=== PATIENT | female | born 1995 | race Caucasian/White ===

== ENCOUNTER → 2020-09-04 09:10 | Outpatient (BNVA) | payer BC, SELFPAY | PROVIDERS: Family Provider General Practice; PCP Internal Medicine; Visit Provider Obstetrics & Gynecology | DX: Z01.419 Encounter for gynecological examination (general) (routine) without abnormal findings (principal) | CPT/HCPCS: 88175 ==

== ENCOUNTER → 2020-11-13 08:59 | Outpatient (BNVA) | payer BC, SELFPAY | PROVIDERS: Family Provider General Practice; PCP Internal Medicine; Visit Provider Internal Medicine Rheumatology | DX: M17.12 Unilateral primary osteoarthritis, left knee (principal); M25.462 Effusion, left knee; Z79.899 Other long term (current) drug therapy; Z11.1 Encounter for screening for respiratory tuberculosis; Z11.59 Encounter for screening for other viral diseases; Z97.5 Presence of (intrauterine) contraceptive device; Z87.891 Personal history of nicotine dependence; R30.9 Painful micturition, unspecified | CPT/HCPCS: 81000; 87086; 99204 ==

== ENCOUNTER 2020-11-24 08:02 | Outpatient (CLI) | payer BC, SELFPAY ==
--- NOTE | 2020-11-24 08:07 | US_ITS ---
WS: [id number] ULTRASOUND SOFT TISSUES LEFT knee HISTORY: LEFT KNEE PAIN, SWELLING COMPARISON: 10/01/2013 MRI TECHNIQUE: 2-D and color Doppler imaging is submitted. There is an elongated complex fluid collection along the lateral knee at the joint line extending ove r length of 8 cm. The depth of this collection is 1.3 cm. This is not a simple collection. No suprapa tellar effusion identified. No increased vascularity. US/US soft tissue/extremity [id number] IMPRESSION: Complex elongated fluid collection centered at the lateral joint line measures 8 cm in length by 1.3 cm in depth. Complex material therefore this may not aspi rate very well. Differential includes meniscal cyst and joint effusion.
== END 2020-11-24 08:03 | disposition home or self-care (01) ==
LOC: US 08:05
PROVIDERS: PCP Internal Medicine; Visit Provider Internal Medicine Rheumatology
DX: M25.562 Pain in left knee (principal); M25.462 Effusion, left knee
CPT/HCPCS: 76882

== ENCOUNTER → 2020-12-29 14:11 | Outpatient (BNVA) | payer BC, SELFPAY | PROVIDERS: PCP Internal Medicine; Visit Provider Internal Medicine Rheumatology | DX: M25.462 Effusion, left knee (principal); Z79.899 Other long term (current) drug therapy; M24.522 Contracture, left elbow; Z97.5 Presence of (intrauterine) contraceptive device; Z87.891 Personal history of nicotine dependence | CPT/HCPCS: 99204; 99214 ==

== ENCOUNTER 2021-03-02 18:26 | Emergency (ER) | payer BC, SELFPAY ==
[2021-03-02 19:48] VITALS: BP 128/87; PULSE 83; RESP 15; TEMP 37.1; O2SAT 98; BMI 35.7
[2021-03-02 22:33] VITALS: BP 148/90; PULSE 17; RESP 72; O2SAT 100
[2021-03-02 23:01] LABS: Basophils % 0.4 %; Eosinophils # 0.1 10^3/uL (0.0-0.8); Eosinophils % 1.1 %; Hematocrit 45.7 % (37.0-47.0); Hemoglobin 14.4 g/dL (11.5-15.3); Lymphocytes # 2.3 10^3/uL (0.8-4.8); Lymphocytes % 24.6 %; Mean Corpuscular HGB Conc 31.5 g/dL (30.0-36.0); Mean Corpuscular Hemoglobin 29.4 pg (28.0-34.0); Mean Corpuscular Volume 93.5 fL (81-99); Monocytes # 0.7 10^3/uL (0.2-0.9); Monocytes % 7.5 %; Neutrophils % 66.1 %; Nucleated Red Blood Cells % 0 %; Platelet Count 324 10^3/cmm (130-400); Red Blood Count 4.89 10^6/uL (4.1-5.3); Red Cell Distribution Width 12.1 % (12.1-15.1); White Blood Count 9.2 10^3/uL (4.0-10.0)
--- NOTE | 2021-03-02 23:02 | CTR_ITS ---
PROCEDURE INFORMATION: Exam: CT Abdomen And Pelvis With Contrast Exam date and time: 03/02/2021 12:24 AM Age: 25 years old Clinical indication: Abdominal pain; Localized; Right lower quadrant (rlq); Prior surgery; Surgery type: Gb TECHNIQUE: Imaging protocol: Computed tomography of the abdomen and pelvis with contrast. Radiation optimization: All CT scans at this facility use at least one of these dose optimization techniques: automated exposure control; mA and/or kV adjustment per patient size (includes targeted exams where dose is matched to clinical indication); or iterative reconstruction. Contrast material: OMNI 300; Contrast volume: 95 ml; Contrast route: INTRAVENOUS (IV); COMPARISON: No relevant prior studies available. RADIATION DOSE METRICS: Total DLP (mGy-cm): 1809.2 FINDINGS: Liver: There is no focal abnormality within the liver. Gallbladder and bile ducts: There has been a cholecystectomy. Pancreas: The pancreas is normal. Spleen: The spleen is normal. Adrenal glands: The adrenal glands are normal. Kidneys and ureters: The kidneys are normal. There is no evidence of hydronephrosis. There is no evidence of renal or ureteral calcifications. Stomach and bowel: There is no evidence of colitis/diverticulitis. Appendix: A normal appendix is identified. Intraperitoneal space: There is no evidence of free intraperitoneal fluid. Vasculature: Unremarkable. No abdominal aortic aneurysm. Lymph nodes: There are mildly prominent inguinal lymph nodes on both sides. There is mild external iliac adenopathy with nodes measuring up to 10 x 20 mm on the right and 10 x 14 mm on the left. There also few mildly prominent mesenteric lymph nodes in the right lower quadrant. Urinary bladder: Unremarkable as visualized. Reproductive: There is an IUD within the uterus Bones/joints: Unremarkable. No acute fracture. Soft tissues: Unremarkable. CT/CT abdomen pelvis w con* [id number] IMPRESSION: 1. Borderline inguinal and external iliac adenopathy. 2. No acute findings. Radiation Dose CTDIVOL = (mGy): DLP = 1809.2 (mGy-cm)
[2021-03-02 23:16] LABS: Alanine Aminotransferase 6 U/L (0-33); Albumin Level 4.3 g/dL (3.5-5.2); Alkaline Phosphatase 86 IU/L (35-105); Anion Gap 14.7 (5-19); Aspartate Amino Transferase 11 U/L (0-32); Blood Urea Nitrogen 5 mg/dL (6-20); Carbon Dioxide 25 mmol/L (22-29); Chloride 101 mmol/L (98-107); Globulin 3.8 g/dL (1.3-4.6); Glomerular Filtration Rate 121.8 mL/min (90-130); Glucose 86 mg/dL (65-115); Lipase 22 U/L (13-60); Osmolality Calculated 281 mOsm/kg (285-295); Potassium 3.7 mmol/L (3.5-5.1); Sodium 137 mmol/L (136-145); Total Bilirubin 0.4 mg/dL (0.15-1.2); Total Protein 8.1 g/dL (6.6-8.7)
[2021-03-02 23:51] LABS: HCG Qualitative Urine. Negative (Negative)
[2021-03-03] MEDS: iohexol 300 mg/mL 100 mL Btl IV (00:53)
[2021-03-03 00:54] LABS: Add Urine Microscopic? YES; Bacteria Urine 1+ /hpf; Bilirubin Urine 1+ (Negative); Blood Urine 2+ (Negative); Glucose Urine UA Norm (Normal); Ketones Urine 1+ (Negative); Leukocyte Esterase Urine 1+ (Negative); Nitrate Urine Negative (Negative); Protein Urine Neg (Negative); Specific Gravity, Urine 1.015 (1.005-1.030); Squamous Epithelial Cell Urine 0-4 /hpf (0-5); Urine Appearance Clear (CLEAR); Urine Color Yellow (Yellow); Urobilinogen Urine 4 mg/dL (Negative); pH Urine 5 (5-7)
[2021-03-03 01:38] VITALS: BP 114/61; PULSE 72; RESP 17; O2SAT 98
--- NOTE | 2021-03-03 02:01 | W.ED.ABDPA2 ---
HPI - Abdominal Pain General: Chief Complaint: Abdominal Pain Stated Complaint: RLQ ABD PAIN Time Seen by Provider: 03/02/21 22:31 Source: patient Mode of arrival: ambulatory Limitations: no limitations History of Present Illness: MD elicited complaint: abdominal pain Onset (ago): day(s) (2) Pain Consistency: intermittent Location: RLQ Severity: mild Quality: cramping Radiation: none Migration to: no migration Exacerbating factors: nothing Relieving factors: nothing Associated Symptoms: Denies change in bowel habits, chills, constipation, GI cramping, diarrhea, dysuria, fever(s), hematuria, hematemesis, nausea, syncope and vomiting Review of Systems Const: Denies: fever(s), chills, body aches, change in appetite, change in weight, fatigue, malaise or diaphoresis Eyes: Denies: change in vision, blurry vision, blind spots, photophobia, eye discomfort, eye discharge, eye redness, floaters or seeing flashes ENMT: Denies: throat pain, uvular edema, enlarged tonsils, odynophagia, hoarseness, mouth pain, swelling of lips/tongue, oral sores, bleeding gums, dental pain, dry mouth, ear or mastoid pain, ear discharge, change in hearing, tinnitus, disequilibrium, nasal discharge, nasal congestion, post nasal drip or sinus pain Card: Denies: chest pain, palpitations, irregular heart rhythm, edema, swelling of feet/ankles, lightheadedness, syncope, pre-syncope, dyspnea on exertion, orthopnea, leg pain with exertion or acrocyanosis Resp: Denies: dyspnea, productive cough, non-productive cough, wheezing, stridor, pain on inspiration, change in phlegm color, hemoptysis or chest congestion GI: Reports: abdominal pain; Denies: nausea, vomiting, hematemesis, dysphagia, diarrhea, constipation, GI cramping, change in bowel habits or rectal pain : Denies: flank pain, difficulty voiding, dysuria, urinary frequency, urinary urgency, urinary hesitancy or hematuria Musc: Denies: neck pain, back pain, extremity pain, extremity swelling, joint pain, joint swelling, joint redness, joint warmth or deformity Skin/Breast: Denies: rash, pruritus, erythema, sores, new lesions, changes in skin color or dry skin Neuro: Denies: headache(s), numbness in extremities, weakness in extremities, sensory changes, lack of coordination, difficulty walking, frequent falls, dizziness, vertigo, confusion, behavioral changes, Slurred speech present, difficulty communicating thoughts or seizure-like activity Psych: Denies: anxiety, depression, suicidal ideation or homicidal ideation Endo: Denies: polyuria, polydipsia, tired all the time, cold intolerance, excessive sweating, flushing, hot flashes or heat intolerance Sajan/Lymph: Denies: easy bruising, easy bleeding, petechiae, purpura, enlarged lymph nodes or tender lymph nodes All/Imm: Denies: urticaria, throat swelling, tongue swelling, facial swelling, acute wheezing or itchy eyes PFSH ED PFSH: Medical History High risk medication use Immunization counseling Inflammatory arthritis Has been evaluated and treated by rheumatology in 2017 Inflammatory arthritis IUD (intrauterine device) in place Swelling of left knee joint Surgical History S/P laparoscopic cholecystectomy (~2014) Performed at [facility] in [place], [place] S/P left knee arthroscopy (~10/2013) Performed at [facility] in [place], [place] Family History Father Diabetes Grandmother Ovarian cancer paternal Other Cancer Lupus Denies family history of Rheumatoid arthritis CAD (coronary artery disease) Hyperlipidemia Chronic kidney disease (CKD) Hypertension Stroke Social History Smoking and tobacco status: former smoker Quit status (tobacco): has quit using tobacco Former quit date comment: Most smoked 1/2 ppd. Started age 17 Alcohol intake: current Alcohol intake frequency: few times a week Physical Exam Const: COMMON NORMALS: no acute distress, patient oriented x3, healthy appearing, alert and well nourished GENERAL APPEARANCE: cooperative, comfortable, well kempt and well developed; not ill appearing ORIENTATION/CONSCIOUSNESS: Yes awake, Yes oriented to person, Yes oriented to place and Yes oriented to time HENMT: COMMON NORMALS: normocephalic, atraumatic, hearing grossly normal bilaterally, external ears normal, EAC's normal, TM's normal bilaterally, Normal external nose present, Normal nasal mucous membranes and turbinates present and moist oral mucous membranes HEAD & SCALP: normal to inspection, normocephalic and atraumatic FACE & SINUS: normal facial exam, sinuses nontender and face symmetric NOSE: Normal external nose present, Normal nares present, Normal nasal mucous membranes and turbinates present, No nasal discharge present and Abnormal external nose present EXTERNAL EAR: Yes external ears normal and Yes mastoids normal EXTERNAL AUDITORY CANAL: EAC's normal TYMPANIC MEMBRANE: TM's normal bilaterally MOUTH: Normal oral and palatal mucosa present, lip normal, tongue normal and Normal salivary glands and ducts present THROAT: no uvular edema Eye: COMMON NORMALS: Equal, round and reactive pupils present, EOMs intact bilaterally, conjunctivae normal, no scleral icterus and no papilledema GENERAL EYE: appearance normal, both eyes and all related structures EYELID: eyelids normal CONJUNCTIVA: Yes conjunctivae normal SCLERA: sclerae normal CORNEA: Yes corneas normal PUPIL: Yes Equal, round and reactive pupils present DIRECT OPHTHALMOSCOPY: Yes no papilledema Neck/C-Spine: COMMON NORMALS: full ROM, no lymphadenopathy, supple, no meningeal signs, no JVD and Thyroid normal GENERAL: Yes normal visual inspection and Yes trachea midline THYROID: Thyroid normal CERVICAL SPINE: Yes cervical ROM normal Lymph: LYMPHATIC: no lymphadenopathy noted and no lymphedema noted Chest: COMMONS NORMALS: normal inspection of the chest and normal palpation of entire chest wall Resp: COMMON NORMALS: normal respiratory effort, No retractions, No use of accessory muscles and clear to auscultation bilaterally EFFORT & INSPECTION: Yes able to speak in complete sentences and Yes symmetric chest movement AUSCULTATION: clear to auscultation bilaterally Cardio: COMMON NORMALS: no JVD, regular rate and regular rhythm RATE: regular rate RHYTHM: regular rhythm GI: COMMON NORMALS: Normal to inspection, nondistended, normoactive bowel sounds present, Soft to palpation, non-tender, No hepatosplenomegaly present, no masses and no bruits INSPECTION: Yes normal to inspection AUSCULTATION: Yes normoactive bowel sounds PALPATION: Yes Soft to palpation and Yes No hepatosplenomegaly present PERCUSSION: normal to percussion RECTAL EXAM: deferred : COMMON NORMALS: Yes no CVA tenderness BLADDER/KIDNEY EXAM: Yes no CVA tenderness Back/Pelvis: COMMON NORMALS: no CVA tenderness, thoracic and lumbar spine normal to inspection, no thoracic nor lumbar tenderness, thoraco-lumbar ROM normal and straight leg raise negative bilaterally THORACIC SPINE/UPPER BACK: Yes normal to inspection LUMBAR SPINE/LOWER BACK: Yes normal to inspection Extremity: COMMON NORMALS: normal to inspection, full ROM and capillary refill normal GENERAL: Yes normal exam except as noted Neuro: COMMON NORMALS: patient oriented x3, CN's II-XII intact bilaterally, moves all extremities, no focal motor deficits, no sensory deficits noted, deep tendon reflexes 2+ bilaterally and gait normal SENSORIUM/ORIENTATION: Yes alert, Yes oriented to person, Yes oriented to place and Yes oriented to time MENINGEAL SIGNS: Yes no meningeal signs CRANIAL NERVES: Yes CN normal except as noted SPEECH: speech normal GAIT: Yes Normal gait present SENSORY EXAM: Yes extremities Psych: COMMON NORMALS: mental status grossly normal, Normal thought process present, cooperative, normal affect, speech normal, activity/motor behavior normal, denies hallucinations, denies homicidal ideation and denies suicidal ideation APPEARANCE: Yes grossly normal and Yes well kempt ATTITUDE: Yes calm ACTIVITY/MOTOR BEHAVIOR: Yes appropriate eye contact SPEECH: Yes normal speech THOUGHT PROCESS: Normal thought process present THOUGHT CONTENT: Yes Normal thought content present ATTENTION/CONCENTRATION: Yes attention grossly intact MEMORY/COGNITION: Yes memory grossly intact INSIGHT: Good insight present (Psych) JUDGEMENT: Good judgement present (Psych) Skin: COMMON NORMALS: no rashes or lesions noted, no wounds, turgor normal, no jaundice, no petechiae and no mottling GENERAL SKIN EXAM: no rashes or lesions noted and turgor normal Course Vital Signs: Vital signs: Vital Signs Temperature 98.7 F 03/02/21 19:48 Pulse Rate 72 03/03/21 01:38 Respiratory Rate 17 03/03/21 01:38 Blood Pressure 114/61 03/03/21 01:38 Pulse Oximetry 98 03/03/21 01:38 MDM - Abdominal Pain MDM Narrative: Medical decision making narrative: Pt is well appearing non toxic and in no acute distress. Pt has no tenderness to abd upon palpation and states its mild pain to RLQ. pt deneis any n/v/d or fever. i discussed ct findings with patient and advised her to follow up for recheck of lymphys to ensure they normalize. Pt states there is no concerns for STDs. pt denies any pelvic pain or tenderness pt denies any back pain. I disucssed with patient her urine results and will strt her on macrobid at this time. I advised patient of close return precautions and follow up. Differential Diagnosis: Differential diagnosis abdominal pain: Likely abdominal pain, acute appendicitis, calculus of kidney, constipation, diverticulitis, endometriosis, gastroenteritis, pancreatitis and small bowel obstruction Medical Records: Attestation: I reviewed the patient's medical records. Lab Data: Attestation: I reviewed the patient's lab results. Labs: Lab Results 03/02/21 03/02/21 03/02/21 Range/Units 22:54 22:54 23:45 WBC 9.2 (4.0-10.0) 10^3/ uL RBC 4.89 (4.1-5.3) 10^6/u L Hgb 14.4 (11.5-15.3) g/dL Hct 45.7 (37.0-47.0) % MCV 93.5 (81-99) fL MCH 29.4 (28.0-34.0) pg MCHC 31.5 (30.0-36.0) g/dL RDW 12.1 (12.1-15.1) % Plt Count 324 (130-400) 10^3/c mm MPV 11.0 H (7.4-10.4) fL Neut % (Auto) 66.1 % Lymph % (Auto) 24.6 % [place] % (Auto) 7.5 % Eos % (Auto) 1.1 % Baso % (Auto) 0.4 % Neut # (Auto) 6.10 (1.8-7.7) 10^3/u L Lymph # (Auto) 2.3 (0.8-4.8) 10^3/u L [place] # (Auto) 0.7 (0.2-0.9) 10^3/u L Eos # (Auto) 0.1 (0.0-0.8) 10^3/u L Baso # (Auto) 0.0 (0.0-0.1) 10^3/u L Nucleated RBC % (a uto) 0 % Nucleated RBCs # 0.0 /100WBC Sodium 137 (136-145) mmol/L Potassium 3.7 (3.5-5.1) mmol/L Chloride 101 (98-107) mmol/L Carbon Dioxide 25 (22-29) mmol/L Anion Gap 14.7 (5-19) BUN 5 L (6-20) mg/dL Creatinine 0.6 (0.5-0.9) mg/dL GFR Calculation 121.8 (90-130) mL/min Glucose 86 (65-115) mg/dL Calculated Osmolal ity 281 L (285-295) mOsm/k g Calcium 9.0 (8.5-10.5) mg/dL Total Bilirubin 0.4 (0.15-1.2) mg/dL AST 11 (0-32) U/L ALT 6 (0-33) U/L Alkaline Phosphata se 86 (35-105) IU/L Total Protein 8.1 (6.6-8.7) g/dL Albumin 4.3 (3.5-5.2) g/dL Globulin 3.8 (1.3-4.6) g/dL Lipase 22 (13-60) U/L HCG, Qual Negative (Negative) Urine Color (Yellow) Urine Appearance (CLEAR) Urine pH (5-7) Ur Specific Gravit y (1.005-1.030) Urine Protein (Negative) Urine Glucose (UA) (Normal) Urine Ketones (Negative) Urine Blood (Negative) Urine Nitrate (Negative) Urine Bilirubin (Negative) Urine Urobilinogen (Negative) mg/dL Ur Leukocyte Tierney ase (Negative) Urine RBC (0-2) /hpf Urine WBC (0-5) /hpf Ur Squamous Epith Cells (0-5) /hpf Amorphous Sediment Urine Bacteria (NONE) /hpf 03/02/21 Range/Units 23:45 WBC (4.0-10.0) 10^3/ uL RBC (4.1-5.3) 10^6/u L Hgb (11.5-15.3) g/dL Hct (37.0-47.0) % MCV (81-99) fL MCH (28.0-34.0) pg MCHC (30.0-36.0) g/dL RDW (12.1-15.1) % Plt Count (130-400) 10^3/c mm MPV (7.4-10.4) fL Neut % (Auto) % Lymph % (Auto) % [place] % (Auto) % Eos % (Auto) % Baso % (Auto) % Neut # (Auto) (1.8-7.7) 10^3/u L Lymph # (Auto) (0.8-4.8) 10^3/u L [place] # (Auto) (0.2-0.9) 10^3/u L Eos # (Auto) (0.0-0.8) 10^3/u L Baso # (Auto) (0.0-0.1) 10^3/u L Nucleated RBC % (a uto) % Nucleated RBCs # /100WBC Sodium (136-145) mmol/L Potassium (3.5-5.1) mmol/L Chloride (98-107) mmol/L Carbon Dioxide (22-29) mmol/L Anion Gap (5-19) BUN (6-20) mg/dL Creatinine (0.5-0.9) mg/dL GFR Calculation (90-130) mL/min Glucose (65-115) mg/dL Calculated Osmolal ity (285-295) mOsm/k g Calcium (8.5-10.5) mg/dL Total Bilirubin (0.15-1.2) mg/dL AST (0-32) U/L ALT (0-33) U/L Alkaline Phosphata se (35-105) IU/L Total Protein (6.6-8.7) g/dL Albumin (3.5-5.2) g/dL Globulin (1.3-4.6) g/dL Lipase (13-60) U/L HCG, Qual (Negative) Urine Color Yellow (Yellow) Urine Appearance Clear (CLEAR) Urine pH 5 (5-7) Ur Specific Gravit y 1.015 (1.005-1.030) Urine Protein Neg (Negative) Urine Glucose (UA) Norm (Normal) Urine Ketones 1+ H (Negative) Urine Blood 2+ H (Negative) Urine Nitrate Negative (Negative) Urine Bilirubin 1+ H (Negative) Urine Urobilinogen 4 H (Negative) mg/dL Ur Leukocyte Tierney ase 1+ H (Negative) Urine RBC 5-10 H (0-2) /hpf Urine WBC 5-10 H (0-5) /hpf Ur Squamous Epith Cells 0-4 H (0-5) /hpf Amorphous Sediment Not Reportable Urine Bacteria 1+ H (NONE) /hpf Discharge Plan Discharge Patient Disposition: Home Clinical Impression: UTI (urinary tract infection) Qualifiers: Urinary tract infection type: acute cystitis Hematuria presence: with hematuria Qualified Code(s): N30.01 - Acute cystitis with hematuria Condition: Stable Prescriptions: New Macrobid 100 mg capsule 100 mg PO BID 5 Days Qty: 10 RF: 0 No Action Mirena 20 mcg/24 hours (5 yrs) 52 mg intrauterine device intrauterine RF: 0 Zyrtec 10 mg capsule 10 mg PO DAILY PRNRF: 0 prednisone 10 mg tablet See Rx Instructions PO DAILY Qty: 30 RF: 2 pantoprazole 40 mg tablet,delayed release (DR/EC) 40 mg PO DAILY Qty: 30 RF: 3 diclofenac sodium 75 mg tablet,delayed release (DR/EC) 75 mg PO BID Qty: 60 RF: 0 Discharge Orders: Discharge ED (Routine); Ordered 03/03/21 Ordered By: Winsome Watters Referrals: Bunny Hooks DO [Primary Care Provider] - Discharge Diet: Advance as tolerated Discharge Activity: Increase activity as tolerated Patient Instructions: Opioid Safety Activity Restrictions/Additional Instructions: Please take meds as directed Please follow up for recheck of swollen lymph nodes Return to ER with any worsening of symptoms Coding Level of Care Code ED Wildlife Ecologist for Sheree Scott
[2021-03-03 02:07] VITALS: BP 120/72; PULSE 82; RESP 16; TEMP 37; O2SAT 98
== END 2021-03-03 02:17 | disposition home or self-care (01) ==
PROVIDERS: Emergency Medicine; Emergency Provider Registered Nurse; PCP Internal Medicine
DX: N30.01 Acute cystitis with hematuria (principal); Z87.891 Personal history of nicotine dependence
CPT/HCPCS: 74177; 80053; 81001; 81025; 83690; 85025; 99283; Q9967

== ENCOUNTER → 2021-04-14 14:56 | Outpatient (BNVA) | payer BC, SELFPAY | PROVIDERS: PCP Internal Medicine; Visit Provider Podiatrist Foot & Ankle Surgery | DX: M79.673 Pain in unspecified foot (principal); M21.41 Flat foot [pes planus] (acquired), right foot; M21.42 Flat foot [pes planus] (acquired), left foot; M21.70 Unequal limb length (acquired), unspecified site | CPT/HCPCS: 73630 ==

== ENCOUNTER 2021-07-30 13:48 | Outpatient (CLI) | payer BC, SELFPAY | END 2021-07-30 13:49 | disposition home or self-care (01) | LOC: SPT 13:49 | PROVIDERS: PCP Internal Medicine; Visit Provider Podiatrist Foot & Ankle Surgery | DX: Z46.89 Encounter for fitting and adjustment of other specified devices (principal); M21.41 Flat foot [pes planus] (acquired), right foot; M21.42 Flat foot [pes planus] (acquired), left foot | CPT/HCPCS: L3030 ==

== ENCOUNTER → 2022-11-12 09:00 | Outpatient (BNVA) | payer OTHER, SELFPAY | PROVIDERS: PCP Internal Medicine; Visit Provider Nurse Practitioner Women's Health | DX: Z12.4 Encounter for screening for malignant neoplasm of cervix (principal) | CPT/HCPCS: 87624 ==

== ENCOUNTER → 2022-12-27 13:17 | Outpatient (BNVA) | payer OTHER, SELFPAY | PROVIDERS: PCP Internal Medicine; Visit Provider Obstetrics & Gynecology | DX: Z01.818 Encounter for other preprocedural examination (principal); R87.620 Atypical squamous cells of undetermined significance on cytologic smear of vagina (ASC-US); R87.811 Vaginal high risk human papillomavirus (HPV) DNA test positive | CPT/HCPCS: 81025; 88305 ==

== ENCOUNTER → 2023-11-22 09:00 | Outpatient (BNVA) | payer OTHER, SELFPAY | PROVIDERS: PCP Internal Medicine; Visit Provider Nurse Practitioner Women's Health | DX: I49.9 Cardiac arrhythmia, unspecified (principal); N92.0 Excessive and frequent menstruation with regular cycle | CPT/HCPCS: 87624 ==

== ENCOUNTER → 2023-12-07 07:53 | Outpatient (BNVA) | payer OTHER, SELFPAY | PROVIDERS: PCP Internal Medicine; Visit Provider Nurse Practitioner Women's Health | DX: N92.0 Excessive and frequent menstruation with regular cycle (principal) | CPT/HCPCS: 76830 ==

== ENCOUNTER → 2024-01-31 06:59 | Day surgery (SDC) | payer OTHER, SELFPAY ==
--- NOTE | 2024-01-30 08:16 | P.ANESASSM_ITS ---
Pre-Anesthetic Assessment Height/Weight: Height 1.73 m Operation Date: 01/31/24 08:30 Proposed Procedures p Hysteroscopsy, 12273, Dilation and curettage with Myosure 80449, N84.0(Not Applicable) - Rick Bardales MD s Dilation And Curettage (D&C)(Not Applicable) - Rick Bardales MD Familial anesthetic complications: None Social No alcohol and No tobacco Exam alert, oriented x 3, clear to auscultation bilaterally and regular rate & rhythm Airway Mallampati: Class II Dentition: full Anesthetic Plan ASA status: 1 Anesthesia: General Risk of > 500 ml blood loss (7ml/kg in children): No Medications/Allergies Home Medications Medication Instructions Recorded Confirmed Last Taken Type cetirizine 10 mg capsule (Zyrtec) 10 mg PO DAILY PRN allergies 11/13/20 01/30/24 12/31/23 History Allergies Allergy/AdvReac Type Severity Reaction Status Date / Time amoxicillin [From Augmentin] Allergy Mild ALGY-Rash Verified 01/23/24 08:11 clavulanic acid Allergy Mild ALGY-Rash Verified 01/23/24 08:11 [From Augmentin] celecoxib [From Celebrex] Allergy bleeding Verified 01/30/24 08:01 Penicillins Allergy Hives Verified 01/23/24 08:11 sulfamethoxazole Allergy rash Verified 01/23/24 08:11 [From Bactrim] trimethoprim [From Bactrim] Allergy rash Verified 01/23/24 08:11 [facility] Anesthesia Medical History SHITAL I (cervical intraepithelial neoplasia I) (~2022) 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 Enteropathic arthritis Papilloma of uvula (~07/2022) [place]ops[place] [facility]; benign Swelling of left knee joint Inflammatory arthritis (~2013) Has been evaluated and treated by rheumatology in 2017 Surgical History S/P laparoscopic cholecystectomy (~2014) Performed at [facility] in [place], [place] S/P left knee arthroscopy (~10/2013) Performed at [facility] in [place], [place] Family History Father Diabetes Grandmother Ovarian cancer paternal Other Lupus Denies family history of Rheumatoid arthritis CAD (coronary artery disease) Hyperlipidemia Chronic kidney disease (CKD) Hypertension Stroke Female Reproductive History Date of last menstrual period: 01/05/24 Data Anesthesia Cardiac Studies: No Data to Display
[2024-01-31] VITALS (10 sets, daily range): BP systolic 116–130; BP diastolic 73–93; PULSE 62–92; RESP 13–20; TEMP 36.1–36.4; O2SAT 98–100; BMI 33.4
[2024-01-31] MEDS: sodium chloride 0.9% 1,000 ML 30 ML IV (07:22)
--- NOTE | 2024-01-31 07:44 | PC.NURSE ---
500cc bolus given out of the 1,000cc bag NS.
[2024-01-31 07:47] LABS: OR HCG Qualitative Urine Negative (Negative)
[2024-01-31 07:58] LABS: Basophils # 0.1 10^3/uL (0.0-0.1); Basophils % 0.5 %; Eosinophils # 0.2 10^3/uL (0.0-0.8); Eosinophils % 2.6 %; Hematocrit 39.9 % (36-47); Lymphocytes # 3.1 10^3/uL (0.8-4.8); Lymphocytes % 33.7 %; Mean Corpuscular HGB Conc 32.8 g/dL (30-55); Mean Corpuscular Hemoglobin 29.7 pg (27-33); Mean Corpuscular Volume 90.5 fl (85-98); Mean Platelet Volume 10.8 fL (7.4-10.4); Monocytes # 0.7 10^3/uL (0.2-0.9); Monocytes % 7.4 %; Neutrophils # 5.09 10^3/uL (1.8-7.7); Neutrophils % 55.5 %; Nucleated Red Blood Cells % 0 %; Platelet Count 313 10^3/cmm (157-399); Red Blood Count 4.41 10^6/uL (3.85-5.65); Red Cell Distribution Width 12.7 % (12.1-15.1); White Blood Count 9.18 10^3/uL (3.29-11.43)
--- NOTE | 2024-01-31 08:17 | P.ANESUD_ITS ---
Pre-Anesthetic Update Pre-Anesthetic Assessment: Date of Surgery/Procedure: 01/31/24 Preop Marti gnosis: Abnormal uterine bleeding, endometrial polyp Proposed Procedure: Operation Date: 01/31/24 08:30 Proposed Procedures p Hysteroscopsy, 29548, Dilation and curettage with Myosure 89504, N84.0(Not Applicable) - Rick Bardales MD s Dilation And Curettage (D&C)(Not Applicable) - Rick Bardales MD Any changes to Pre-Anesthetic Assessment?: No Last Intake: Intake Last Liquid Date 01/30/24 Last Liquid Time 22:00 Last Solid Date 01/30/24 Last Solid Time 20:00 Labs Last 48hrs: Short CBC 01/31/24 Range/Units 07:21 WBC 9.18 (3.29-11.43) 10^ 3/uL Hgb 13.10 (11.27-16.99) g/ dL Hct 39.9 (36-47) % MCV 90.5 (85-98) fl Plt Count 313 (157-399) 10^3/c mm Neut % (Auto) 55.5 % Neut # (Auto) 5.09 (1.8-7.7) 10^3/u L Vitals: Temperature 97 F L 01/31/24 07:08 Temperature Source Temporal Artery S can 01/31/24 07:08 Pulse Rate 92 01/31/24 07:08 Respiratory Rate 20 H 01/31/24 07:08 Blood Pressure 129/93 01/31/24 07:08 Blood Pressure Sharmila n 105 01/31/24 07:08 Pulse Oximetry 98 01/31/24 07:08 Oxygen Delivery Me thod Room Air 01/31/24 07:14 Exam: Pre-Anes Outpt Exam: alert, oriented x 3, clear to auscultation bilaterally and regular rate & rhythm Cardiac Studies: No Data to Display
--- NOTE | 2024-01-31 08:20 | W.PM.OPSUD ---
Surgery/Procedure H&P Update DATE OF PROCEDURE: January 31, 2024 DATE H&P PERFORMED: 01/23/24 H&P UPDATE INFORMATION: I have reviewed H&P completed within last 30 days, I have examined patient prior to procedure and No changes to prior documentation PREOP DIAGNOSIS: Abnormal uterine bleeding, endometrial polyp PLANNED PROCEDURE: Operation Date: 01/31/24 08:30 Proposed Procedures p Hysteroscopsy, 20498, Dilation and curettage with Myosure 85658, N84.0(Not Applicable) - Rick Bardales MD s Dilation And Curettage (D&C)(Not Applicable) - Rick Bardales MD
[2024-01-31 08:22] LABS: Add Urine Microscopic? YES; Bilirubin Urine Neg (Negative); Blood Urine 2+ (Negative); Glucose Urine UA Norm (Normal); Ketones Urine Negative (Negative); Leukocyte Esterase Urine 1+ (Negative); Nitrate Urine Negative (Negative); Protein Urine Neg (Negative); Specific Gravity, Urine 1.025 (1.005-1.030); Urine Appearance Cloudy (CLEAR); Urine Color Yellow (Yellow); Urobilinogen Urine 1 mg/dL (Negative); pH Urine 6 (5-7)
[2024-01-31 08:22] LABS: Alanine Aminotransferase 6 U/L (0-33); Albumin Level 4.3 g/dL (3.5-5.2); Alkaline Phosphatase 67 U/L (35-105); Aspartate Amino Transferase 12 U/L (0-32); Blood Urea Nitrogen 9 mg/dL (6-20); Calcium 8.9 mg/dL (8.5-10.5); Carbon Dioxide 22 mmol/L (22-29); Chloride 106 mmol/L (98-107); Globulin 2.7 g/dL (1.3-4.6); Glucose 95 mg/dL (65-115); Osmolality Calculated 286 mOsm/kg (285-295); Sodium 139 mmol/L (136-145); Total Bilirubin 0.3 mg/dL (0.15-1.2)
[2024-01-31 08:25] LABS: Add Urine Culture? Yes; Bacteria Urine 2+ /hpf; Mucus Urine TRACE /hpf; RBC Urine 0-4 /hpf (0-2); Renal Epithelial Cells Urine 0-4 /hpf; Squamous Epithelial Cell Urine 15-25 /hpf (0-5)
[2024-01-31] MEDS: levofloxacin-dextrose 5 % 500 MG/100 ML PREMIX 100 MG IV (08:32)
[2024-01-31] MEDS: lidocaine-epi 2% PF 1:200,000 20 mL SDV INJECTION (08:57)
--- NOTE | 2024-01-31 09:08 | PM.OP ---
Operative Report Date of procedure: January 31, 2024 Pre-op diagnosis: Abnormal uterine bleeding Endometrial polyp Post-op diagnosis: same Post-op findings: Endometrial polyp at the fundus Procedure done: Hysteroscopy Hysteroscopic polypectomy Dilation and curettage via MyoSure Specimens removed/disposition: Endometrial curettings with endometrial polyp Surgeon: Rick Bardales MD Estimated blood loss (mL): 5 IV fluids (mL): 800 Complications: None Procedure: After informed consent, the risks included but were not limited to bleeding, infection, injury to internal organs. The patient was counseled on a possible laparotomy and on the potential need for hysterectomy. The patient expressed understanding of the risks involved, all questions were answered, and the patient consented to the procedure. The patient was taken to the operating room where general anesthesia was administered. She was placed in the dorsal lithotomy position and prepped and draped in sterile fashion. A time out procedure was performed. The patient was examined under anesthesia and found to have a normal uterus with normal adnexa. A sterile weight speculum was placed in the vagina. The uterus was then gently sounded to 7 cm, and the cervix was dilated. The 0 degrees MyoSure hysteroscope was advanced gently to the uterine fundus while visualizing the monitor. Survey of the uterine cavity showed: Endometrial polyp at the fundus of the uterus, the fundus shows normal proliferative endometrium; left ostium was visualized, and lateral wall with proliferative endometrium; right ostium visualized, and lateral wall with proliferative endometrium; anterior and posterior hartley are with proliferative endometrium; endocervical canal is normal. The MyoSure device was advanced and the direct visualization the polyp and endometrium were morcellated without complication. At the end of morcellation the fluid deficit was 345 mL and was estimated at approximately 200 mL were on the floor. There was minimal bleeding noted and the tenaculum removed with goad hemostasis noted. The patient tolerated the procedure well. The patient was taken to the recovery area in stable condition.
--- NOTE | 2024-01-31 09:14 | PC.NURSE ---
patient awake. airway removed
--- NOTE | 2024-01-31 09:23 | PC.NURSE ---
Patient requested oxygen for anxiety. Was 98 on room air. 2l applied per nc
--- NOTE | 2024-01-31 10:04 | PC.NURSE ---
pt. refusing hydrocodone prescription. dr. horton notified. instructed to call ibuprofen 800mg tid #60 to pharmacy.
--- NOTE | 2024-01-31 14:57 | ANE.PACU2 ---
Inpatient post-anesthesia follow up: Airway intact: Yes Vital signs: Temperature 97 F Pulse Rate 72 Respiratory Rate 18 Blood Pressure 116/84 Pulse Oximetry 99 Oxygen Delivery Me thod Room Air Oxygen Flow Rate 2 Fraction of Inspir ed Oxygen Hydration adequate: Yes Nausea and vomiting: No Pain level: 2 Mental status: Baseline
== END | disposition home or self-care (01) ==
PROVIDERS: PCP Internal Medicine; Visit Provider Obstetrics & Gynecology
PROC: 0UDB8ZZ Extraction of Endometrium, Via Natural or Artificial Opening Endoscopic (ICD-10-PCS; CPT 58558; principal; 2024-01-31 08:20)
PROC: (CPT 58120; 2024-01-31 08:20)
DX: N93.9 Abnormal uterine and vaginal bleeding, unspecified (principal); N84.0 Polyp of corpus uteri
CPT/HCPCS: 58558; 80053; 81001; 81025; 84703; 85025; 86850; 86900; 87086; 88305; J1100; J1956; J2250; J2405; J2704; J3010; J7030

== ENCOUNTER 2025-09-25 14:25 | Inpatient (IN) | payer BC, SELFPAY ==
[2025-09-25] VITALS (45 sets, daily range): BP systolic 86–130; BP diastolic 49–89; PULSE 61–92; TEMP 36.7; O2SAT 91–100; BMI 37.2
[2025-09-25 15:04] LABS: Hematocrit 36.3 % (36-47); Hemoglobin 12.00 g/dL (11.27-16.99); Mean Corpuscular HGB Conc 33.1 g/dL (30-55); Mean Corpuscular Hemoglobin 29.0 pg (27-33); Mean Corpuscular Volume 87.7 fl (85-98); Nucleated Red Blood Cells % 0 %; Platelet Count 220 10^3/cmm (157-399); Red Blood Count 4.14 10^6/uL (3.85-5.65); White Blood Count 13.10 10^3/uL (3.29-11.43)
--- OUTSIDE RECORDS SUMMARY | 2025-09-25 15:04 | XMS_ITS | Continuity of Care Document ---
Author Organization [place] - Fabio Myers [facility], [facility] ([facility]) Address [address] [place] [address] Assessment No assessment recorded. Plan of Treatment Reminders Order Date Submit Date Provider Last Modified By Organization Details Last Modified Time Details Appointments RETURN OB 2024 01:15P Eric Angelo MD Not available Not available Not available Lab None recorded . Referral None recorded . Procedures None recorded . Surgeries None recorded . Imaging None recorded . Medication Orders None recorded . Patient TargetsNo targets recorded. Patient InstructionsNo instructions recorded. Reason for Referral None Reported. Results Created Date Observation Date Name Description Value Unit Range Abnormal Flag Note LastModifiedBy Organization Detail LastModifiedTime 02/27/2002/27/2025 URINA LYSIS , COMPL ETE color YELLOW yellow normal Not Available [address] [address] [place], [address], 02/27/2025 22:28:50 02/27/2002/27/2025 URINA LYSIS , COMPL ETE appearance CLEAR clear normal Not Available [facility] [address] [address] [place], [address], 02/27/2025 22:28:50 02/27/20 25 02/27/2025 URINA LYSIS , COMPL ETE specific gravity 1.012 1.001- 1.035 normal Not Available [employer] [address] [address] [place], [address], 02/27/2025 22:28:50 02/27/20 25 02/27/2025 URINA LYSIS , COMPL ETE pH 7.5 5.0-8. 0 normal Not Available [address], [address], 02/27/2025 22:28:50 02/27/20 25 02/27/2025 URINA LYSIS , COMPL ETE glucose NEGATI VE negati ve normal Not Available [address], [address], 02/27/2025 22:28:50 02/27/20 25 02/27/2025 URINA LYSIS , COMPL ETE bilirubin NEGATI VE negati ve normal Not Available [address], [address], 02/27/2025 22:28:50 02/27/20 25 02/27/2025 URINA LYSIS , COMPL ETE ketones NEGATI VE negati ve normal Not Available [address], [address], 02/27/2025 22:28:50 02/27/20 25 02/27/2025 URINA LYSIS , COMPL ETE occult blood NEGATI VE negati ve normal Not Available [address], [address], 02/27/2025 22:28:50 02/27/20 25 02/27/2025 URINA LYSIS , COMPL ETE protein NEGATI VE negati ve normal Not Available [address], [address], 02/27/2025 22:28:50 02/27/20 25 02/27/2025 URINA LYSIS , COMPL ETE nitrite NEGATI VE negati ve normal Not Available [address], [address], 02/27/2025 22:28:50 02/27/20 25 02/27/2025 URINA LYSIS , COMPL ETE leukocyte esterase TRACE negati ve abnormal Not Available [address], [address], 02/27/2025 22:28:50 02/27/20 25 02/27/2025 URINA LYSIS , COMPL ETE WBC NONE SEEN /hpf < or = 5 normal Not Available [facility] [address], [address], 02/27/2025 22:28:50 02/27/20 25 02/27/2025 URINA LYSIS , COMPL ETE RBC NONE SEEN /hpf < or = 2 normal Not Available [facility] [address], [address], 02/27/2025 22:28:50 02/27/20 25 02/27/2025 URINA LYSIS , COMPL ETE squamous epithelial cells 6-10 /hpf < or = 5 abnormal Not Available [address], [address], 02/27/2025 22:28:50 02/27/20 25 02/27/2025 URINA LYSIS , COMPL ETE bacteria NONE SEEN /hpf none seen normal Not Available [address], [address], 02/27/2025 22:28:50 02/27/20 25 02/27/2025 URINA LYSIS , COMPL ETE hyaline cast NONE SEEN /lpf none seen normal Not Available [address], [address], 02/27/2025 22:28:50 02/27/20 25 02/27/2025 URINA LYSIS , COMPL ETE note This urine was jim zed for the prese nce of WBC, RBC, bacte terry, casts , and other forme d eleme nts. Only those eleme nts seen were repor bruce. Not Available [address], [address], 02/27/2025 22:28:50 02/27/20 25 02/27/2025 CBC (INCL UDES DIFF/ PLT) white blood cell count 8.9 thous and/u L 3.8-10 .8 normal Not Available [address], [address], 02/27/2025 22:28:51 02/27/20 25 02/27/2025 CBC (INCL UDES DIFF/ PLT) red blood cell count 4.42 erick on/uL 3.80-5 .10 normal Not Available [address], [address], 02/27/2025 22:28:51 02/27/20 25 02/27/2025 CBC (INCL UDES DIFF/ PLT) hemoglobin 13.2 g/dL 11.7-1 5.5 normal Not Available [address], [address], 02/27/2025 22:28:51 02/27/20 25 02/27/2025 CBC (INCL UDES DIFF/ PLT) hematocrit 41.4 % 35.0-4 5.0 normal Not Available [address], [address], 02/27/2025 22:28:51 02/27/20 25 02/27/2025 CBC (INCL UDES DIFF/ PLT) MCV 93.7 fL 80.0-1 00.0 normal Not Available [address], [address], 02/27/2025 22:28:51 02/27/20 25 02/27/2025 CBC (INCL UDES DIFF/ PLT) MCH 29.9 pg 27.0-3 3.0 normal Not Available [address], [address], 02/27/2025 22:28:51 02/27/20 25 02/27/2025 CBC (INCL UDES DIFF/ PLT) MCHC 31.9 g/dL 32.0-3 6.0 low For adult s, a sligh t decre ase in the calcu lated MCHC value (in the range of 30 to 32 g/dL) is most likel y not clini solomon signi ray t; eliana er, it shoul d be inter prete d with cauti on in corre lat n with other red cell mariana eters and the patie nt's clini rajiv condi tion. Not Available [address], [address], 02/27/2025 22:28:51 02/27/20 25 02/27/2025 CBC (INCL UDES DIFF/ PLT) RDW 12.5 % 11.0-1 5.0 normal Not Available [address], [address], 02/27/2025 22:28:51 02/27/20 25 02/27/2025 CBC (INCL UDES DIFF/ PLT) platelet count 294 thous and/u L 140-40 0 normal Not Available [facility] [address], [address], 02/27/2025 22:28:51 02/27/20 25 02/27/2025 CBC (INCL UDES DIFF/ PLT) MPV 11.6 fL 7.5-12 .5 normal Not Available [facility] [address], [address], 02/27/2025 22:28:51 02/27/20 25 02/27/2025 CBC (INCL UDES DIFF/ PLT) absolute neutrophils 6408 cells /uL 1500-7 800 normal Not Available [facility] [address], [address], 02/27/2025 22:28:51 02/27/20 25 02/27/2025 CBC (INCL UDES DIFF/ PLT) absolute lymphocytes 1833 cells /uL 850-39 00 normal Not Available [facility] [address], [place], [address], 02/27/2025 22:28:51 02/27/20 25 02/27/2025 CBC (INCL UDES DIFF/ PLT) absolute monocytes 481 cells /uL 200-95 0 normal Not Available [facility] [address], [address], 02/27/2025 22:28:51 02/27/20 25 02/27/2025 CBC (INCL UDES DIFF/ PLT) absolute eosinophils 151 cells /uL 15-500 normal Not Available [facility] [address], [address], 02/27/2025 22:28:51 02/27/20 25 02/27/2025 CBC (INCL UDES DIFF/ PLT) absolute basophils 27 cells /uL 0-200 normal Not Available [facility] [address], [address], 02/27/2025 22:28:51 02/27/20 25 02/27/2025 CBC (INCL UDES DIFF/ PLT) neutrophils 72 % normal Not Available [address], [address], 02/27/2025 22:28:51 02/27/20 25 02/27/2025 CBC (INCL UDES DIFF/ PLT) lymphocytes 20.6 % normal Not Available [facility] [address], [address], 02/27/2025 22:28:51 02/27/20 25 02/27/2025 CBC (INCL UDES DIFF/ PLT) monocytes 5.4 % normal Not Available [address], [address], 02/27/2025 22:28:51 02/27/20 25 02/27/2025 CBC (INCL UDES DIFF/ PLT) eosinophils 1.7 % normal Not Available [facility] [address] [place], [address], 02/27/2025 22:28:51 02/27/20 25 02/27/2025 CBC (INCL UDES DIFF/ PLT) basophils 0.3 % normal Not Available [address] [place], [address], 02/27/2025 22:28:51 02/27/20 25 02/27/2025 HEPAT ITIS B SURFA CE ANTIG EN W/REF L CONFI RM hepatitis B surface antigen NON-RE ACTIVE non-re active normal For addit ional infor mattodd n, pleas e refer to http: //[facility] cent[facility].que stdia gnost ics.c om/fa q/FAQ 202 (This link is being provi ded for infor matio nal/ educa jhonathan l purpo ses only. ) Not Available [facility] [address], [address], 02/27/2025 22:28:52 02/27/20 25 02/27/2025 HEPAT ITIS C AB W/REF L TO HCV RNA, QN, PCR hepatitis C antibody NON-RE ACTIVE non-re active normal HCV antib efren was non-r eacti ve. There is no labor atory evide nce of HCV infec tion. In most cases , no furth er actio n is requi red. Howev er, if recen t HCV expos ure is suspe cted, a test for HCV RNA (test code 19154 ) is sugge sted. For addit ional infor matio n pleas e refer to http: //[facility] cent[facility] n.que stdia gnost ics.c om/fa q/FAQ 22v1 (This link is being provi ded for infor matio nal/ educa jhonathan l purpo ses only. ) Not Available [address] [address] [place], [address], 02/27/2025 22:28:53 02/27/20 25 02/27/2025 RUBEL LA AB (IGG) , IMMUN E STATU S rubella Ab (IgG), immune status 1.58 index normal Index Inter preta tion ----- ----- ----- ---- <0.90 Not consi stent with immun ity 0.90- 0.99 Equiv ocal > or = 1.00 Consi stent with immun ity The prese nce of rubel la IgG antib efren sugge sts immun izati on or past or curre nt infec tion with rubel la virus . Not Available [employer] [facility] [id number] [place] [address], [address], 02/27/2025 22:28:53 02/27/20 25 02/27/2025 HIV 1/2 ANTIG EN/AN TIBOD Y,FOU RTH GENER ATION W/RFL HIV Ag/Ab, 4TH gen NON-RE ACTIVE non-re active normal HIV-1 antig en and HIV-1 /HIV- 2 antib odies were not detec bruce. There is no labor atory evide nce of HIV infec tion. PLEAS E NOTE: This infor matio n has been discl osed to you from recor ds whose confi denti ality may be prote cted by state law. If your state requi res such prote ction , then the state law prohi bits you from ramon g any furth er discl osure of the infor matio n witho ut the speci fic writt en conse nt of the perso n to whom it perta ins, or as other casiano permi tted by law. A gener al autho rizat ion for the relea se of medic al or other infor matio n is NOT suffi cient for this purpo se. For addit ional infor matio n pleas e refer to http: //[facility] stdia gnost ics.c om/fa q/FAQ 106 (This link is being provi ded for infor matio nal/ educa jhonathan l purpo ses only. ) The perfo rmanc e of this assay has not been clini solomon valid ated in patie nts less than 2 years old. Not Available [employer] [facility] [place], [address], 02/27/2025 22:28:54 02/27/20 25 02/27/2025 RPR (DX) W/REF L TITER AND T. PALLI DUM AB, IA RPR (DX) w/refl titer and confirmatory testing NON-RE ACTIVE non-re active normal No labor atory evide nce of syphi lis. If recen t expos ure is suspe cted, submi t a new sampl e in 2-4 weeks . Not Available [address], [address], 02/27/2025 22:28:55 02/27/20 25 02/27/2025 ANTIB EFREN SCREE N, RBC W/REF L ID, TITER AND AG antibody screen, RBC w/refl id, titer and Ag NO ANTIBO DIES DETECT ED normal Refer ence range No antib odies detec bruce This assay is a scree pat test for the detec tion of red blood cell antib odies . The test is not to be used for pretr ansfu deepak scree pat or for the medic al manag ement of an alloi mmuni zed pregn benjamin. Not Available [address], [address], 02/27/2025 22:28:56 02/27/20 25 02/27/2025 ABO GROUP AND RH TYPE ABO group O Not Available [address], [address], 02/27/2025 22:28:57 02/27/20 25 02/27/2025 ABO GROUP AND RH TYPE Rh type RH(D) POSITI VE For addit ional infor sabrina roth refer to http: //divina Gdofrey stDia gnost ics.c om/fa q/FAQ 111 (This link is being provi ded for infor amy trujillo/ educcatracho ring l purpo ses only. ) Not Available [address], [address], 02/27/2025 22:28:57 02/27/20 25 02/27/2025 DRUG MONIT OR, PANEL 1, SCREE N, URINE amphetamines NEGATI VE NG/mL <500 See Note A See Note A Not Available [facility] [address] [address] [address], [place], [address], 02/27/2025 22:28:58 02/27/20 25 02/27/2025 DRUG MONIT OR, PANEL 1, SCREE N, URINE barbiturates NEGATI VE NG/mL <300 See Note A See Note A Not Available [facility] [address] [address] [address], [place], [address], 02/27/2025 22:28:58 02/27/20 25 02/27/2025 DRUG MONIT OR, PANEL 1, SCREE N, URINE benzodiazepi duane NEGATI VE NG/mL <100 See Note A See Note A Not Available [facility] [address] [address] [address], [place], [address], 02/27/2025 22:28:58 02/27/20 25 02/27/2025 DRUG MONIT OR, PANEL 1, SCREE N, URINE cocaine metabolite NEGATI VE NG/mL <150 See Note A See Note A Not Available [facility] [address] [address] [address], [place], [address], 02/27/2025 22:28:58 02/27/20 25 02/27/2025 DRUG MONIT OR, PANEL 1, SCREE N, URINE marijuana metabolite NEGATI VE NG/mL <20 See Note A See Note A Not Available [facility] [address] [address] [address], [place], [address], 02/27/2025 22:28:58 02/27/20 25 02/27/2025 DRUG MONIT OR, PANEL 1, SCREE N, URINE methadone metabolite NEGATI VE NG/mL <100 See Note A See Note A Not Available [facility] [address] [address] [address], [place], [address], 02/27/2025 22:28:58 02/27/20 25 02/27/2025 DRUG MONIT OR, PANEL 1, SCREE N, URINE opiates NEGATI VE NG/mL <100 See Note A See Note A Not Available [address] [address] [address], [place], [address], 02/27/2025 22:28:58 02/27/20 25 02/27/2025 DRUG MONIT OR, PANEL 1, SCREE N, URINE oxycodone NEGATI VE NG/mL <100 See Note A See Note A Not Available [address] [address] [address], [place], [address], 02/27/2025 22:28:58 02/27/20 25 02/27/2025 DRUG MONIT OR, PANEL 1, SCREE N, URINE phencyclidin e NEGATI VE NG/mL <25 See Note A See Note A Not Available [address] [address] [address], [place], [address], 02/27/2025 22:28:58 02/27/20 25 02/27/2025 DRUG MONIT OR, PANEL 1, SCREE N, URINE creatinine 108.1 mg/dL > or = 20.0 Not Available [address] [address] [address], [place], [address], 02/27/2025 22:28:58 02/27/20 25 02/27/2025 DRUG MONIT OR, PANEL 1, SCREE N, URINE pH 7.7 4.5-9. 0 Not Available [address] [address] [address], [place], [address], 02/27/2025 22:28:58 02/27/20 25 02/27/2025 DRUG MONIT OR, PANEL 1, SCREE N, URINE oxidant NEGATI VE mcg/m L <200 Not Available [address] [address] [address], [place], [address], 02/27/2025 22:28:58 02/27/20 25 02/27/2025 DRUG MONIT ORING TEMPL ATE notes and comments This drug testi ng is for medic al treat ment only. Jim sis was perfo rmed as non-f orens ic testi ng and these resul ts shoul d be used only by healt kun provi ders to rende r diagn osis or treat ment, or to monit or progr ess of medic al condi tions . Note A: The resul ts are presu mptiv e; based only on tripp caputo ds, and they have not been confi rmed by a defin itive metho d. Healt kristinere Provi ders needi ng Inter preta tion yanci tance , pleas e conta ct us at 1.877 .40.R XTOX (1.87 [phone] .[phone] ) M-F, 8am to 10pm EST Not Available [address] [address] [place], [address], 02/27/2025 22:28:59 02/27/2002/27/2025 CULTU RE, URINE , ROUTI NE culture, urine, routine SEE NOTE CULTU RE, URINE , ROUTI NE Micro Numbe r: [id number] Test Statu s: Final Speci men Sourc e: Urine Speci men Quali ty: Adequ ate Resul t: No Growt h Not Available [address] [address] [place], [address], 02/27/2025 22:28:59 02/27/20 25 03/08/2025 THINP REP TIS PAP (REFL ) HPV MRNA E6/E7 clinical information: normal Pregn ant Not Available [facility] [address] [address] [place], [address], 03/08/2025 08:16:51 02/27/20 25 03/08/2025 THINP REP TIS PAP (REFL ) HPV MRNA E6/E7 LMP: normal NONE GIVEN Not Available [facility] [address] [address] [place], [address], 03/08/2025 08:16:51 02/27/20 25 03/08/2025 THINP REP TIS PAP (REFL ) HPV MRNA E6/E7 prev. Pap: normal NONE GIVEN Not Available [address], [address], 03/08/2025 08:16:51 02/27/20 25 03/08/2025 THINP REP TIS PAP (REFL ) HPV MRNA E6/E7 prev. BX: normal NONE GIVEN Not Available [address] [place], [address], 03/08/2025 08:16:51 02/27/20 25 03/08/2025 THINP REP TIS PAP (REFL ) HPV MRNA E6/E7 source: normal Cervi x, Endoc ervix Not Available [address] [place], [address], 03/08/2025 08:16:51 02/27/2003/08/2025 THINP REP TIS PAP (REFL ) HPV MRNA E6/E7 statement of adequacy: normal Satis facto ry for evalu ation . Endoc ervic al/tr ansfo rmati on zone compo nent prese nt. Not Available [address], [address], 03/08/2025 08:16:51 02/27/2003/08/2025 THINP REP TIS PAP (REFL ) HPV MRNA E6/E7 general categorizati on: abnormal Cytol ogy Resul ts: Epith elial Cell Abnor malit y Not Available [address] [place], [address], 03/08/2025 08:16:51 02/27/2003/08/2025 THINP REP TIS PAP (REFL ) HPV MRNA E6/E7 interpretati on/result: abnormal Low Grade Squam ous Intra epith elial Lesio n (LSIL ) Not Available [address] [place], [address], 03/08/2025 08:16:51 02/27/20 25 03/08/2025 THINP REP TIS PAP (REFL ) HPV MRNA E6/E7 comment: normal This Pap test has been evalu ated with [employer] o[employer] . Sugge st clini rajiv corre latio n and follo w-up as clini solomon appro priat e Not Available [address] [address] [place], [address], 03/08/2025 08:16:51 02/27/20 25 03/08/2025 THINP REP TIS PAP (REFL ) HPV MRNA E6/E7 cytotechnolo gist: normal KMS, CT( CP) CT Scree pat locat ion: [address] [address] [place] [address] Not Available [address] [address] [place], [address], 03/08/2025 08:16:51 02/27/20 25 03/08/2025 THINP REP TIS PAP (REFL ) HPV MRNA E6/E7 pathologist: normal Alisha monique M.D., Board Certi fied in Anato jesús Patho logy and Cytop athol ogy. Phone : [phone] (elec troni c signa josé) Patho logis t Relea se Date/ Time: 03/06 09:25 AM Not Available [address] [address] [place], [address], 03/08/2025 08:16:51 02/27/20 25 03/08/2025 THINP REP TIS PAP (REFL ) HPV MRNA E6/E7 comment EXPLA NATOR Y NOTE: The Pap is a scree pat test for cervi rajiv cance r. It is not a diagn ostic test and is subje ct to false negat brien and false posit brien resul ts. It is most relia ble when a satis facto ry sampl e, regul jamaal obtai ana, is submi tted with relev ant clini rajiv findi ngs and histo ry, and when the Pap resul t is evalu ated along with histo kierra and curre nt clini rajiv infor amy raphael. Not Available [facility] [address] [place], [address], 03/08/2025 08:16:51 02/27/20 25 03/08/2025 HPV MRNA E6/E7 HPV MRNA E6/E7 Not Detect ed not detect ed normal Metho dolog y: Trans cript ion-M ediat ed Ampli ficat ion This assay detec ts E6/E7 viral messe nger RNA (mRNA ) from 14 high- risk HPV types (16,1 8,31, 33,35 ,39,4 5,51, 52,56 ,58,5 9,66, 68). Cervi rajiv sourc es are requi red for HPV testi ng. If a vagin al sourc e from a patie nt who has had a total hyste recto my with remov al of cervi x was submi tted, pleas e conta ct the testi ng labor atory for alter nativ e testi ng optio ns. For addit ional infor sabrina roth e refer to http: //[facility] raphael.patience stdia gnost ics.c om/fa q/FAQ 129v1 (This link if provi ded for infor amy raphael/ educcatracho ring l purpo ses only. ) Not Available [facility] [address] [place], [address], 03/08/2025 08:16:53 02/27/20 25 02/26/2025 CT + NG + TV, DNA, urine /swab Chlamydia negati ve Not Available [facility] ([facility]) [address] [place], [address], 02/25/2025 18:55:26 02/27/20 25 02/26/2025 CT + NG + TV, DNA, urine /swab Gonorrhea negati ve Not Available [facility] ([facility]) [address] [place], [address], 02/25/2025 18:55:26 02/27/2002/26/2025 CT + NG + TV, DNA, urine /swab Trichomonas negati ve Not Available [facility] ([facility]) [address] [place], [address], 02/25/2025 18:55:26 07/02/20 25 07/02/2025 CBC WBC 11.1 x10 4.0-10 .5 high Not Available [facility] [address] [facility] [address], [place], [address], 07/02/2025 10:24:57 07/02/20 25 07/02/2025 CBC RBC 3.96 x10 3.50-5 .50 Not Available [facility] [address] [facility] [address], [place], [address], 07/02/2025 10:24:57 07/02/20 25 07/02/2025 CBC HGB 12.0 g/dL 12.0-1 6.0 Not Available [facility] [address] [facility] [address], [place], [address], 07/02/2025 10:24:57 07/02/20 25 07/02/2025 CBC HCT 37.1 % 37.0-4 7.0 Not Available [facility] [address] [facility] [address], [place], [address], 07/02/2025 10:24:57 07/02/20 25 07/02/2025 CBC MCV 93.8 fL 80.0-9 9.9 Not Available [facility] [address] [facility] [address], [place], [address], 07/02/2025 10:24:57 07/02/20 25 07/02/2025 CBC MCH 30.4 pg 27.0-3 2.0 Not Available [facility] [address] [facility] [address], [place], [address], 07/02/2025 10:24:57 07/02/20 25 07/02/2025 CBC MCHC 32.4 g/dL 32.0-3 6.0 Not Available [facility] [address] Qui[address]ones [facility] [address], [place], [address], 07/02/2025 10:24:57 07/02/20 25 07/02/2025 CBC RDW 12.9 % 11.5-1 4.5 Not Available [facility] [address] [facility] [address], [place], [address], 07/02/2025 10:24:57 07/02/20 25 07/02/2025 CBC plt 227.7 x10 140.0- 451.0 Not Available [facility] [address] [facility], [place], [address], 07/02/2025 10:24:57 07/02/20 25 07/02/2025 CBC lymphocytes % 15.5 % 20.0-5 0.0 low Not Available [facility] [address] [facility] [address], [place], [address], 07/02/2025 10:24:57 07/02/20 25 07/02/2025 CBC granulcytes % 78.3 % 30.0-7 0.0 high Not Available [facility] [address] [facility], [place], [address], 07/02/2025 10:24:57 07/02/20 25 07/02/2025 CBC monocytes % 4.2 % 2.0-16 .0 Not Available [facility] [address] [facility] 1, [place], [address], 07/02/2025 10:24:57 07/02/20 25 07/02/2025 CBC granulcytes# 8.7 x10 Not Jenny ilable [facility] [address] [facility] [address], [place], [address], 07/02/2025 10:24:57 07/02/20 25 07/02/2025 CBC lymphocytes # 1.7 x10 Not Available [facility] [address] [facility] [address], [place], [address], 07/02/2025 10:24:57 07/02/20 25 07/02/2025 CBC monocytes # 0.5 x10 Not Avai lable [facility] [address] [facility] [address], [place], [address], 07/02/2025 10:24:57 07/02/20 25 07/02/2025 GLUCO SE SCREE N glucose screen 135.0 mg/dL Not Available [facility] [address] [facility] [address], [place], [address], 07/02/2025 10:30:30 07/11/20 25 07/11/2025 GLUCO SE SCREE N glucose screen 133.0 mg/dL Not Available [facility] [address] [facility] [address], [place], [address], 07/11/2025 10:37:03 08/27/20 25 09/02/2025 CULTU RE, GROUP B STREP WITH SUSCE PTIBI LITY culture, group B strep with susceptibili ty SEE NOTE abnormal CULTU RE, GROUP B STREP WITH SUSCE PTIBI LITY Micro Numbe r: [id number] Test Statu s: Final Speci men Sourc e: Vagin al/an orect al Speci men Quali ty: Adequ ate Resul t: Group B Strep tococ cus isola bruce This isola te demon strat es induc ible clind amyci n resis tance . Note per CDC guide lines optim al recov catarino is achie vinicio by swabb ing both the lower vagin a and rectu m (thro ugh the anal sphin cter) . Group B Strep ----- ----- ----- - INT JESÚS AMPIC ILLIN S <=0.2 5 CLIND AMYCI N R PENIC ILLIN S 0.12 VANCO MYCIN S 0.5 S = Susce ptibl e I = Inter media te R = Resis tant NS = Not susce ptibl e SDD = Susce ptibl e Dose Depen dent * = Not Teste d NR = Not Repor bruce NN = See Thera py Comme nts Not Available [facility] [address] [place], [address], 09/02/2025 14:26:34 09/06/2009/06/2025 CBC WBC 9.9 x10 4.0-10 .5 Not Available [facility] [address] [facility] [address] [facility] [address], [place], [address], 09/06/2025 09:32:26 09/06/2009/06/2025 CBC RBC 4.29 x10 3.50-5 .50 Not Available [facility] [address] [facility] [address], [place], [address], 09/06/2025 09:32:26 09/06/20 25 09/06/2025 CBC HGB 12.6 g/dL 12.0-1 6.0 Not Available [facility] [address] [facility], [place], [address], 09/06/2025 09:32:26 09/06/2009/06/2025 CBC HCT 39.4 % 37.0-4 7.0 Not Available [facility] [address] [facility], [place], [address], 09/06/2025 09:32:26 09/06/20 25 09/06/2025 CBC MCV 91.9 fL 80.0-9 9.9 Not Available [facility] [address] [facility], [place], [address], 09/06/2025 09:32:26 09/06/20 25 09/06/2025 CBC MCH 29.3 pg 27.0-3 2.0 Not Available [facility] [address] [facility] 1, [place], [address], 09/06/2025 09:32:26 09/06/20 25 09/06/2025 CBC MCHC 31.9 g/dL 32.0-3 6.0 low Not Available [facility] [address] [facility], [place], [address], 09/06/2025 09:32:26 09/06/20 25 09/06/2025 CBC RDW 13.2 % 11.5-1 4.5 Not Available [facility] [address] [facility] 1, [place], [address], 09/06/2025 09:32:26 09/06/20 25 09/06/2025 CBC plt 216.3 x10 140.0- 451.0 Not Available [facility] [address] [facility], [place], [address], 09/06/2025 09:32:26 09/06/20 25 09/06/2025 CBC lymphocytes % 21.4 % 20.0-5 0.0 Not Available [facility] [address] [facility], [place], [address], 09/06/2025 09:32:26 09/06/20 25 09/06/2025 CBC granulcytes % 70.6 % 30.0-7 0.0 high Not Available [facility] [address] [facility], [place], [address], 09/06/2025 09:32:26 09/06/20 25 09/06/2025 CBC monocytes % 5.8 % 2.0-16 .0 Not Available [facility] [address] [facility], [place], [address], 09/06/2025 09:32:26 09/06/2009/06/2025 CBC granulcytes# 7.0 x10 Not Jenny ilable [facility] [address] [facility], [place], [address], 09/06/2025 09:32:26 09/06/2009/06/2025 CBC lymphocytes # 2.1 x10 Not Available [facility] [address] [facility], [place], [address], 09/06/2025 09:32:26 09/06/2009/06/2025 CBC monocytes # 0.6 x10 Not Avai lable [facility] [address] [facility], [place], [address], 09/06/2025 09:32:26 09/06/2009/06/2025 CMP (FEMA LE) glucose 84.0 mg/dL 60.0-9 9.0 Not Available [facility] [address] [facility], [place], [address], 09/06/2025 09:46:52 09/06/2009/06/2025 CMP (FEMA LE) BUN (blood urea nitrogen) 5.0 mg/dL 10.0-2 6.0 low Not Available [facility] [address] [facility], [place], [address], 09/06/2025 09:46:52 09/06/2009/06/2025 CMP (FEMA LE) creatinine (serum) 0.5 mg/dL 0.4-1. 5 Not Available [facility] [address] [facility] 1, [place], [address], 09/06/2025 09:46:52 09/06/20 25 09/06/2025 CMP (FEMA LE) BUN/creatini ne ratio 10.00 ratio Not Available [facility] [address] [facility], [place], [address], 09/06/2025 09:46:52 09/06/20 25 09/06/2025 CMP (FEMA LE) eGFR calculated 154.0 Not Available [facility] [address] [facility] 1, [place], [address], 09/06/2025 09:46:52 09/06/2009/06/2025 CMP (FEMA LE) total protein 7.0 g/dL 6.0-8. 5 Not Available [facility] [address] [facility] 1, [place], [address], 09/06/2025 09:46:52 09/06/2009/06/2025 CMP (FEMA LE) total bilirubin 0.6 mg/dL 0.2-1. 3 Not Available [facility] [address] [facility] 1, [place], [address], 09/06/2025 09:46:52 09/06/2009/06/2025 CMP (FEMA LE) albumin 4.1 g/dL 3.5-5. 5 Not Available [facility] [address] [facility] 1, [place], [address], 09/06/2025 09:46:52 09/06/2009/06/2025 CMP (FEMA LE) globulin 2.9 calc Not Available [facility] [address] [facility] 1, [place], [address], 09/06/2025 09:46:52 09/06/20 25 09/06/2025 CMP (FEMA LE) AST (SGOT) 33.0 U/L 0.0-46 .0 Not Available [facility] [address] [facility], [place], [address], 09/06/2025 09:46:52 09/06/2009/06/2025 CMP (FEMA LE) altv (SGPT) 22.0 U/L 13.0-6 9.0 normal Not Available [facility] [address] [facility], [place], [address], 09/06/2025 09:46:52 09/06/2009/06/2025 CMP (FEMA LE) A/G ratio 1.4 ratio Not Available [facility] [address] [facility] [address], [place], [address], 09/06/2025 09:46:52 09/06/2009/06/2025 CMP (FEMA LE) ALP phos 160.0 U/L 30.0-1 40.0 abnormal Not Available [facility] [address] [facility] 1, [place], [address], 09/06/2025 09:46:52 09/06/2009/06/2025 CMP (FEMA LE) calcium 9.0 mg/dL 8.4-10 .5 Not Available [facility] [address] [facility] 1, [place], [address], 09/06/2025 09:46:52 09/06/2009/06/2025 CMP (FEMA LE) sodium 137.0 mmol/ L 136.0- 145.0 Not Available [facility] [address] [facility] 1, [place], [address], 09/06/2025 09:46:52 09/06/2009/06/2025 CMP (FEMA LE) potassium 3.4 mmol/ L 3.5-5. 1 low Not Available [facility] [address] [facility] 1, [place], [address], 09/06/2025 09:46:52 09/06/20 25 09/06/2025 CMP (FEMA LE) chloride 105.0 mmol/ L 98.0-1 10.0 normal Not Available [facility] [address] [facility] 1, [place], [address], 09/06/2025 09:46:52 09/06/20 25 09/06/2025 CMP (FEMA LE) C02 24.0 mmol/ L 22.0-3 1.0 Not Available [facility] [address] [facility] 1, [place], [address], 09/06/2025 09:46:52 09/06/2009/06/2025 CMP (FEMA LE) anion gap 8.0 calc Not Available [facility] [address] [facility], [place], [address], 09/06/2025 09:46:52 09/06/2009/06/2025 CMP (FEMA LE) osmolality 279.9 calc Not Available [facility] [address] [facility], [place], [address], 09/06/2025 09:46:52 09/06/20 25 09/06/2025 LIPID PROFI LE (FEMA LE) cholesterol 195.0 mg/dL 0.0-20 0.0 Not Available [facility] [address] [facility], [place], [address], 09/06/2025 09:46:55 09/06/20 25 09/06/2025 LIPID PROFI LE (FEMA LE) trig 114.0 mg/dL 0.0-15 0.0 Not Available [facility] [address] [facility] 1, [place], [address], 09/06/2025 09:46:55 11/14/09/06/2025 LIPID PROFI LE (FEMA LE) HDL - direct 74.0 mg/dL >40.0 Not Available [facility] [address] [facility] 1, [place], [address], 09/06/2025 09:46:55 09/06/20 25 09/06/2025 LIPID PROFI LE (FEMA LE) VLDL - direct 22.8 mg/dL Not Available [facility] [address] [facility] 1, [place], [address], 09/06/2025 09:46:55 09/06/20 25 09/06/2025 LIPID PROFI LE (FEMA LE) LDL - direct 98.2 mg/dL 0.0-13 0.0 Not Available [facility] [address] [facility] 1, [place], [address], 09/06/2025 09:46:55 09/06/20 25 09/06/2025 TSH TSH 1.69 uIU/m L 0.49-3 .82 Not Available [facility] [address] [facility], [place], [address], 09/06/2025 10:02:31 09/06/20 25 09/06/2025 HBA1C hemaglobin A1C 5.4 4.2-6. 5 Not Available [facility] [address] [facility], [place], [address], 09/06/2025 12:51:07 02/19/20 25 02/12/2025 US, chadwick martinez, 1st trime ster No observ ation record ed. [email or web address] Not Available 02/19 09:09:34 04/25/20 25 04/18/2025 US, chadwick tric, follo w-up No observ ation record ed. [email or web address] [facility] [address] [place], [address], 04/29/2025 09:24:34 05/11/20 25 05/07/2025 US, obste tric, 2nd trime ster No observ ation record ed. [address] [place], [address], 05/13/2025 17:57:21 07/05/20 25 07/02/2025 imagi ng/di agnos tic resul t No observ ation record ed. [facility] [address] [place], [address], 07/09/2025 10:35:54 Result Notes None recorded. Problems Name Problem SNOMED Code Status Onset Date Resolution Date Notes Provider Name and Address Organization Details Recorded Time Rheumatoid arthritis 74842763 Active 2022 KERWIN roper [facility] 14:16:25 Pain of knee region 9585564244 Completed 202301/24/2025 KERWIN DUNAWAY [facility] 5 14:16:23 Family history of diabetes mellitus 248954919 Active 2023 KERWIN DUNAWAY [facility] 5 14:16:18 Normal 05136832 Active 2024 ROXI Vang [facility] 10:22:35 Normal 20897964 Active 2024 ROXI NEULORENWAHailey KAVITHA null [facility] 5 10:22:35 Placenta previa partialis 93583457 Active 2024 Alvaro Angelo MD [address] [place], [address], [facility] 5 02:46:26 Low-lying placenta 696559231 Active 2024 Alvaro Angelo MD [address] [place] [address], [address], [facility] 11:36:47 Problem Notes None recorded. Procedures Surgical History Date Name Laterality Status Provider Name and Address Organization Details Recorded Time 02/27/20 25 Date of Last Pap Smear completed [facility] 09/02/2025 18:39:21 02/27/20 25 liquid based cervical cytology screening completed [facility], LRemigioLRemigioCRemigio 09/02/2025 18:39:54 01/31/20 24 colposcopy completed [facility], VikiLRemigioCRemigio 01/24/2025 14:17:49 01/31/20 24 hysteroscopy completed [facility], [facility]LRemigioCR[facility]igio 01/24/2025 14:18:46 arthroscopy of left knee joint completed [facility], LRemigioLRemigioCRemigio 01/24/2025 14:17:01 cholecystectomy completed [facility] L.LRemigioCRemigio 01/24/2025 14:17:33 Imaging Results None recorded. Procedure Notes None recorded. Medical Equipment None Reported. Allergies Allergen ID Allergen Name Allergen Category Reaction Reaction Severity Criticality Documentation Date Start Date Code Code System Note Provider Name and Address Organization Details Recorded Time 98920 Bactrim medicatio n hives moderate Not available 05/21/2023 45568 9 RxNorm ROXI Vang [facility] LRemigioLRemigioCRemigio 5 15:30:03 52023 Product containin g penicilli n (product) medicatio n hives moderate Not available 05/21/2023 35552 8001 SNOMED TREJOSE RAUL Vang [facility], VikiLRemigioCRemigio 5 15:30:03 49516 Augmentin medicatio n hives moderate Not available 01/24/2025 90030 2 RxNorm KERWIN GUME [facility] 5 14:19:18 68796 Celebrex medicatio n other moderate Not available 01/24/2025 70465 7 RxNorm TREBA MANFRED PLUMMER [facility] 5 15:30:03 12315 Substance with sulfonami de structure and antibacte rial mechanism of action (substanc e) medicatio n hives moderate Not available 04/18/2025 92900 8003 SNOMED ROXI PLUMMER [facility] 5 15:30:03 36316 amoxicill in / clavulana te medicatio n hives Not available high 09/06/20252022 45474 RxNorm Yessy ates PCN and amoxi cilli n fine Not Available [employer] - prod 5 07:58:34 62944 celecoxib medicatio n Not available Not available high 09/06/20252022 47962 7 RxNorm Not Available [employer] - prod 5 07:58:34 Medications Name Sig Start Date Stop Date Status Note LastModified by Organization Details LastModified Time celecoxib 200 mg capsule TAKE 1 CAPSULE BY MOUTH TWICE DAILY 10/09 completed Not Available Not Available Not Available amoxicill in 500 mg capsule TAKE 1 CAPSULE BY MOUTH TWICE DAILY 01/24 completed Not Available Not Available Not Available Miralax 17 gram/dose oral powder Take 17 g every day by oral route as directed . 10/09 completed Not Available Not Available Not Available prednison e 10 mg tablet TAKE 1 TABLET BY MOUTH ONCE DAILY 10/09 completed Not Available Not Available Not Available azithromy ila 250 mg tablet TAKE 2 TABLETS BY MOUTH ON DAY 1, AND THEN TAKE 1 TABLET BY MOUTH ONCE A DAY ON DAY 2 THROUGH DAY 5 01/24 completed Not Available Not Available Not Available hydrocodo ne 5 mg-acetam inophen 325 mg tablet TAKE 1 TABLET BY MOUTH EVERY 6 HOURS NEEDED FOR PAIN 01/24 completed Not Available Not Available Not Available prednison e 20 mg tablet TAKE 1 TABLET BY MOUTH ONCE DAILY FOR 5 DAYS 10/09 completed Not Available Not Available Not Available meloxicam 7.5 mg tablet Take 1 tablet every day by oral route as needed for 30 days. 10/09 completed Not Available Not Available Not Available amoxicill in 875 mg-potass ium clavulana te 125 mg tablet TAKE 1 TABLET BY MOUTH EVERY 12 HOURS FOR 10 DAYS 01/24 completed Not Available Not Available Not Available Vitamin 27 mg iron-0.8 mg tablet Take 1 tablet every day by oral route. 01/24 completed Not Available Not Available Not Available pseudoeph edrine HCl two times daily, as needed 10/09 completed for congesti ons/ear pain; Recorded 09/24/20 20 7:58AM by Bonnie Kemp, Office Visit; Refill Quantity : 48; Tablet; Not Available Not Available Not Available Mirena 10/[address] Martinez; 0; Recorded 09/24/20 20 7:58AM by Bonnie Kemp, Office Visit; Not Available Not Available Not Available Gummies 4 qd 09/10 completed Not Available Not Available Not Available Vitals Date Recorded Body height Body mass index (BMI) Body weight Respiratory rate Heart rate Oxygen saturation Body temperature Systolic And Diastolic Provider Name and Address Organization Details Last Updated DateTime 5 170.18 cm 38 kg/m2 885838. 15 g 18 /min 85 /min 98 % 98.4 [degF] 122/70 mm[Hg] KERWIN DUNAWAY [facility] 10:58:00 Social History Question Answer Notes LastModified by Organizat ion Details LastModified Time Tobacco Smoking Status Former Smoker ANTONIO roper [facility] 01/24/2023 10:09:31 Are You Blind Or Do You Have Difficulty Seeing? No Information not available 01/24/2025 Are You Deaf Or Do You Have Serious Difficulty Hearing? No [email or web address] Information not available 01/24/2023 When Did You Quit Smoking? 1-5yearssinc elastcigaret te [email or web address] Information not available 01/24/2023 Do You Work In Healthcare? No Information not available 01/24/2025 What Was The Date Of Your Most Recent Tobacco Screening? 03/26/2025 [email or web address] Information not available 03/26/2025 What Is Your Relationship Status? Information not available 01/24/2025 Have You Recently Traveled Abroad? No [email or web address] Information not available 01/24/2023 Do You Have Difficulty Walking Or Climbing Stairs? No [email or web address] Information not available 01/24/2023 Sex: Unknown Functional Status Question Answer Note LastModified by Organizat ion Details LastModified Time Do you use any illicit or recreational drugs? No Information not available 01/24/2025 Do you or have you ever used any other forms of tobacco or nicotine? No Information not available 01/24/2025 What is your level of alcohol consumption? None Information not available 01/24/2025 Are you currently employed? Yes Information not available 01/24/2025 Are you able to walk independently without assistance or assistive devices? YESWOREST [email or web address] Information not available 01/24/2023 Do you have difficulty doing errands alone? No [email or web address] Information not available 01/24/2023 Are you able to care for yourself independently? 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 No [email or web address] Information not available 01/24/2023 Do you or have you ever used e-cigarettes or vape? Former user of electronic cigarettes Information not available 01/24/2025 Mental Status Question Answer Note LastModified by Organization D etails LastModified Time Do you have difficulty concentrating, remembering or making decisions? No [email or web address] Information no t available 01/24/2023 Family History Relationship Description Onset Age of this Age Resolved Age Notes LastModified by Organization Details LastModified Time Father Diabetes mellitus [email or web address] Not available 2023 09:43:45 Paternal Grandmother Malignant neoplasm of ovary [email or web address] Not available 10:54:13 Notes:Cancer Maternal Grandf ather: Brain Cancer Paternal Grandmother: Ovarian Cancer Medical History Condition Response Coronary Artery Disease N Gout N Other N Blood Diseases N Kidney Stones N Hyperthyroidism N Blood Transfusion N Breast Cancer N Depression N COPD N Lung Disease N Hypothyroidism N Developmental or Behavioral Disorders N Defects or Inherited Disease N Breast Problem N Difficulty Swallowing N Anesthesia Complications N Meniere's disease N Anxiety Disorder N Muscle, Joint, or Bone Problems Y Vision or Eye Problems N Arthritis N Polyps N Infertility N Cancer N Varicosities N Stroke N Endometriosis N Bladder or Kidney Problems N High Cholesterol N Liver Disease N Headaches N Fibromyalgia N Kidney Disease N Allergies/Hayfever Y Heart Problems N Ear or Hearing Problems N Hospitalizations N Thyroid Problems N GI Problems N ADD/ADHD N Skin Problems N Eating Disorder N Anemia Y Constipation N Mental Illness N Ovarian Cancer N Diabetes N Bedwetting N Seizures/Epilepsy N Tuberculosis N Eczema N Diverticulitis N Abuse/Domestic Violence N Asthma N Reflux/GERD N Hepatitis N Heart Disease N Pulmonary Embolism N Pre-Eclampsia N Hypertension N Chronic Ear Infections N Osteoporosis N Chicken Pox N Autism Spectrum Disorder (ASD) N Thrombophilias N Gynecological History Statement/Question Response Abnormal Pap Y Date of Last Pap Smear 02/26/2025 Date of LMP 12/13/2024 LMP Definite Obstetrics History GPAL:G 3 P 1 0 1 1 Type Value Full Term 1 Induced 1 Living 1 Total 3 Immunizations Vaccine Type Date Status Note Provider Nam e and Address Organization Details Recorded Time IPV 09/28/2000 [facility] 10/09/2024 09:35:10 MMR 04/11/1996 [facility]aushal [facility] 10/09/2024 09:35:10 MMR 09/28/2000 [facility] 10/09/2024 09:35:10 Tdap 11/17/2010 [facility] 10/09/2024 09:35:10 Tdap 02/20/2015 completed Susan Wilson null, [facility] 10/09/2024 09:35:10 Hep B, unspecified formulation 1995 completed Susan Wilson null, [facility] 10/09/2024 09:35:10 Hep B, unspecified formulation 02/28/1996 completed Susan Wilson null, [facility] 10/09/2024 09:35:10 Hep B, unspecified formulation 1995 completed Susan Wilson null, [facility] 10/09/2024 09:35:10 OPV, trivalent 1995 completed Susan Wilson null, [facility] 10/09/2024 09:35:10 OPV, trivalent 02/28/1996 completed Susan Wilson null, [facility] 10/09/2024 09:35:10 OPV, trivalent 1995 completed Susan Wilson null, [facility] 10/09/2024 09:35:10 DTP-Hib 11/29/1996 completed Susan Wilson null, [facility] 10/09/2024 09:35:10 DTP-Hib 1995 completed Susan Wilson null, [facility] 10/09/2024 09:35:10 DTP-Hib 02/28/1996 completed Susan Wilson null, [facility] 10/09/2024 09:35:10 DTP-Hib 1995 completed Susan Wilson null, [facility] 10/09/2024 09:35:10 DTaP 09/28/2000 completed Susan Wilson null, [facility] 10/09/2024 09:35:10 Past Encounters Encounter ID Performer Location Encounter Start Date Encounter Closed Date Diagnosis/Indication Diagnosis SNOMED-CT Code Diagnosis ICD10 Code Diagnosis IMO Codes Diagnosis Note [id number] Alvaro Angelo MD [facility] ([facility]) [address] [place] [phone] 08/27/2025 10:35:57 08/27/2025 11:34:41 Normal 61358975 Z34.83 Gestation period, 36 weeks 02047146 Z3A.36 4847324 [id number] Alvaro Angelo MD [facility] ([facility]) [address] [place], [place] [address] 09/03/2025 10:32:59 09/03/2025 11:48:15 Multigravida 784364227 Z34.83 67438122 Gestation period, 37 weeks 37385163 Z3A.37 [id number] Giovani Yu MD [facility] ([facility]) [address] [place] [address] 09/06/2025 07:58:00 09/11/2025 03:58:55 Adult health examination 891819362 Z00.00 [id number] LISSETH SETHI [facility] ([facility]) [address] [place] [phone] 5 09/06/2025 07:58:35 09/11/2025 03:58:55 Physical examination 4852520 Z00.00 [id number] Alvaro Angelo MD [facility] ([facility]) [address] [place] [phone] 09/10/2025 13:45:56 09/10/2025 14:47:57 Multigravida 706344063 Z34.83 [id number] Gestation period, 38 weeks 03745583 Z3A.38 7213020 [id number] Alvaro Angelo MD [facility]) [address] [place] [phone] 5 09/17/2025 10:35:44 09/17/2025 11:14:06 Normal in multigravida 9381654230 00734 Z34.80 55731352 Gestation period, 39 weeks 20986877 Z3A.39 [id number] Health Concerns Section Related Observation LastModified by Organization Detai ls LastModified Time None Recorded Concern Status LastModified by Organization Details LastModified Time None Recorded Payers Encounter Date Sequence Insurance Name Policy Number Policy Fierro Covered Member ID Fierro Member ID Guarantor Name 09/17/2025 1 [employer] [id number] 3 Jeffy Zimmerman [id number] Jeffy Zimmerman Notes Date Note Type Note Provider Name and Address Organization Details Recorded Time 09/17/2025 text/html jr ob routineRep orted by PatientHPIFor associated symptoms, patient reportsedema (hands,feet,legs)but reportsno abdominal pain,no cramping,no contractions,normal movement,no bleeding,no vaginal discharge,no vaginal/vulvar itching or irritation,no dysuria,no frequency,no urgency,no hematuria,no fever,no nausea,no emesis,no constipation,no diarrhea/loose stool,no visual changes,no headache,no dizziness, andno breathlessness.heartb urn/ acid reflux with meals, back pain, vaginal pressureDenies any tobacco, nicotine, alcohol, or drug useROS as noted in the HPI Alvaro Angelo MD [address] [place] [address], [phone], [facility] 09/17/2025 11:13:41 OBGyn Episode Ob Episode Information Episode Created Date Number of Fetuses Patient Bloodtype Patient rh Status Prepregnancy Weight lbs Domestic Partner Domestic Partner Phone Father Name Director Wholesale Status 01/25/20 1 O Positive Damián OPEN Fetus Data First Name Last Name Admitted to NICU Weight (g) Sex Living Outcome Pediatric Complications Fetus ID Race Codes Race Delivery Type [id number] Problems Problem Notes 07/30/25- pt declined TDaP an d RSV injectionGroup B Strep Positive - Use ancefInduction set for saturday 09/29 Problem Name Start Date End Date Resolution Snomed Code Not e Normal 02/25/2025 [id number] Harshil Calculation Initial Harshil Date Initial Exam Date Initial Exam Provider Initial Ultrasound Date Last Menstrual Period Date Ultra Sound Weeks Gestation 09/19/2025 01/24/2025 02/12/2025 12/13/2024 8 Eighteen To Twenty Week Harshil Update Ultra Sound Date Fundal Height At Umbil Quickening Date Ultra Sound Latest Weeks Gestation Final Harshil Confirmed By Final Harshil Confirmed Date Final Harshil Date Ultra Sound Latest Days Gestation 0 02/14/2025 09/24/20 25 0 Pre- Flowsheet Flowsheet Date 01/24/2025 Sierra Score Blood Edema Fundus Height Fundus Units Glucose Ketones Leukocytes Nitrite Labor Signs Protein Cervic Dilation Cervic Effacement Cervic Station Type Weight in lbs Pre/Post Dialysis Refused Weight 227.048220887899 BP Diastolic BP Location Tested BP Systolic BP Type 60 R arm 112 Fetus Heart Rate Present Fetus Movement Comments OBI-nausea Flowsheet Date 02/12/2025 Sierra Score Blood Edema Fundus Height Fundus Units Glucose Ketones Leukocytes Nitrite Labor Signs Protein Cervic Dilation Cervic Effacement Cervic Station Type Weight in lbs Pre/Post Dialysis Refused BP Diastolic BP Location Tested BP Systolic BP Type Fetus Heart Rate Present Fetus Movement Comments u/s on 02/12/25 HARSHIL 09/24/25, EGA 8.0, FHR 153 Flowsheet Date 02/26/2025 Sierra Score Blood Edema Fundus Height Fundus Units Glucose Ketones Leukocytes Nitrite Labor Signs Protein Cervic Dilation Cervic Effacement Cervic Station Type Weight in lbs Pre/Post Dialysis Refused Weight 221.479650585739 BP Diastolic BP Location Tested BP Systolic BP Type 68 110 sitting Fetus Heart Rate Present A 164 Present Fetus Movement Comments NOB, head/chest congestion, sore throat, headache, mild cramping, low back pain, N/V Flowsheet Date 03/26/2025 Sierra Score Blood Edema Fundus Height Fundus Units Glucose Ketones Leukocytes Nitrite Labor Signs Protein Cervic Dilation Cervic Effacement Cervic Station Type Weight in lbs Pre/Post Dialysis Refused Weight 221.069899027144 BP Diastolic BP Location Tested BP Systolic BP Type 74 134 sitting Fetus Heart Rate Present A 148 Present Fetus Movement Comments migraine, fatigue, low back pain, pt unable to leave a urine sample Flowsheet Date 04/18/2025 Sierra Score Blood Edema Fundus Height Fundus Units Glucose Ketones Leukocytes Nitrite Labor Signs Protein Cervic Dilation Cervic Effacement Cervic Station none trace Negative neg Type Weight in lbs Pre/Post Dialysis Refused Weight 225.613925512129 BP Diastolic BP Location Tested BP Systolic BP Type 68 118 sitting Fetus Heart Rate Present A 152 Present Fetus Movement A No Comments low abdominal pain, spotting /brown discharge Flowsheet Date 04/18/2025 Sierra Score Blood Edema Fundus Height Fundus Units Glucose Ketones Leukocytes Nitrite Labor Signs Protein Cervic Dilation Cervic Effacement Cervic Station Type Weight in lbs Pre/Post Dialysis Refused BP Diastolic BP Location Tested BP Systolic BP Type Fetus Heart Rate Present Fetus Movement Comments Flowsheet Date 04/24/2025 Sierra Score Blood Edema Fundus Height Fundus Units Glucose Ketones Leukocytes Nitrite Labor Signs Protein Cervic Dilation Cervic Effacement Cervic Station Type Weight in lbs Pre/Post Dialysis Refused BP Diastolic BP Location Tested BP Systolic BP Type Fetus Heart Rate Present Fetus Movement Comments u/s on 04/18/25, HARSHIL 09/23/25, EGA 17.3, Breech, Placenta posterior and Partial previa. Flowsheet Date 05/07/2025 Sierra Score Blood Edema Fundus Height Fundus Units Glucose Ketones Leukocytes Nitrite Labor Signs Protein Cervic Dilation Cervic Effacement Cervic Station Type Weight in lbs Pre/Post Dialysis Refused BP Diastolic BP Location Tested BP Systolic BP Type Fetus Heart Rate Present Fetus Movement Comments u/s on 05/07/25, HARSHIL 09/21/25 , EGA 20.3, Normal anatomy scan. Vertex, Low- lying placenta. Flowsheet Date 05/21/2025 Sierra Score Blood Edema Fundus Height Fundus Units Glucose Ketones Leukocytes Nitrite Labor Signs Protein Cervic Dilation Cervic Effacement Cervic Station 22 cm none trace trace Type Weight in lbs Pre/Post Dialysis Refused Weight 230.475927907308 BP Diastolic BP Location Tested BP Systolic BP Type 62 L arm 106 Fetus Heart Rate Present A 148 Present Fetus Movement A Yes Comments heartburn Flowsheet Date 06/18/2025 Sierra Score Blood Edema Fundus Height Fundus Units Glucose Ketones Leukocytes Nitrite Labor Signs Protein Cervic Dilation Cervic Effacement Cervic Station Type Weight in lbs Pre/Post Dialysis Refused Weight 229.1386319126 BP Diastolic BP Location Tested BP Systolic BP Type 60 120 Fetus Heart Rate Present A 148 Present Fetus Movement A Yes Comments nausea and diarrhea today, Flowsheet Date 06/18/2025 Sierra Score Blood Edema Fundus Height Fundus Units Glucose Ketones Leukocytes Nitrite Labor Signs Protein Cervic Dilation Cervic Effacement Cervic Station none none Negative neg Type Weight in lbs Pre/Post Dialysis Refused BP Diastolic BP Location Tested BP Systolic BP Type Fetus Heart Rate Present Fetus Movement Comments Flowsheet Date 07/02/2025 Sierra Score Blood Edema Fundus Height Fundus Units Glucose Ketones Leukocytes Nitrite Labor Signs Protein Cervic Dilation Cervic Effacement Cervic Station Type Weight in lbs Pre/Post Dialysis Refused BP Diastolic BP Location Tested BP Systolic BP Type Fetus Heart Rate Present Fetus Movement Comments Flowsheet Date 07/02/2025 Sierra Score Blood Edema Fundus Height Fundus Units Glucose Ketones Leukocytes Nitrite Labor Signs Protein Cervic Dilation Cervic Effacement Cervic Station Type Weight in lbs Pre/Post Dialysis Refused BP Diastolic BP Location Tested BP Systolic BP Type Fetus Heart Rate Present Fetus Movement Comments Flowsheet Date 07/02/2025 Sierra Score Blood Edema Fundus Height Fundus Units Glucose Ketones Leukocytes Nitrite Labor Signs Protein Cervic Dilation Cervic Effacement Cervic Station none trace trace Type Weight in lbs Pre/Post Dialysis Refused Weight 234.434453355156 BP Diastolic BP Location Tested BP Systolic BP Type 66 R arm 124 Fetus Heart Rate Present A 140 Present Fetus Movement A Yes Comments nausea, heartburn/acid reflu x with meals Flowsheet Date 07/16/2025 Sierra Score Blood Edema Fundus Height Fundus Units Glucose Ketones Leukocytes Nitrite Labor Signs Protein Cervic Dilation Cervic Effacement Cervic Station 29 cm none trace Negative trace Type Weight in lbs Pre/Post Dialysis Refused Weight 232.123932248176 BP Diastolic BP Location Tested BP Systolic BP Type 64 122 sitting Fetus Heart Rate Present A 142 Present Fetus Movement A Yes Comments nausea/vominting, heartburn, constipation Flowsheet Date 07/30/2025 Sierra Score Blood Edema Fundus Height Fundus Units Glucose Ketones Leukocytes Nitrite Labor Signs Protein Cervic Dilation Cervic Effacement Cervic Station 33 cm none none trace Type Weight in lbs Pre/Post Dialysis Refused Weight 236.223088312811 BP Diastolic BP Location Tested BP Systolic BP Type 76 120 Fetus Heart Rate Present A 144 Present Fetus Movement A Yes Comments mild swelling, heartburn int ermittent Flowsheet Date 08/13/2025 Sierra Score Blood Edema Fundus Height Fundus Units Glucose Ketones Leukocytes Nitrite Labor Signs Protein Cervic Dilation Cervic Effacement Cervic Station 34 cm none trace Meriwether Garnett neg Type Weight in lbs Pre/Post Dialysis Refused Weight 239.631192783435 BP Diastolic BP Location Tested BP Systolic BP Type 64 122 Fetus Heart Rate Present A 144 Present Fetus Movement A Yes Comments cramping, heartburn, irregul ar contractions Flowsheet Date 08/27/2025 Sierra Score Blood Edema Fundus Height Fundus Units Glucose Ketones Leukocytes Nitrite Labor Signs Protein Cervic Dilation Cervic Effacement Cervic Station 36 cm none trace trace 1cm 50% -3 Type Weight in lbs Pre/Post Dialysis Refused Weight 241.788758365000 BP Diastolic BP Location Tested BP Systolic BP Type 72 126 Fetus Heart Rate Present A 148 Present Fetus Movement A Yes Comments group b strep collected toda ycramping, heartburn, intermittent vaginal pressure Flowsheet Date 09/02/2025 Sierra Score Blood Edema Fundus Height Fundus Units Glucose Ketones Leukocytes Nitrite Labor Signs Protein Cervic Dilation Cervic Effacement Cervic Station Type Weight in lbs Pre/Post Dialysis Refused BP Diastolic BP Location Tested BP Systolic BP Type Fetus Heart Rate Present Fetus Movement Comments Group B strep PositiveOB rec ords sent Flowsheet Date 09/03/2025 Sierra Score Blood Edema Fundus Height Fundus Units Glucose Ketones Leukocytes Nitrite Labor Signs Protein Cervic Dilation Cervic Effacement Cervic Station none none Negative Michael Garnett neg 2cm 70% -3 Type Weight in lbs Pre/Post Dialysis Refused Weight 241.345974638750 BP Diastolic BP Location Tested BP Systolic BP Type 74 122 sitting Fetus Heart Rate Present A 140 Present Fetus Movement A Yes Comments spotting 2 days ago, edema i n hands, heartburn/acid reflux Flowsheet Date 09/06/2025 Sierra Score Blood Edema Fundus Height Fundus Units Glucose Ketones Leukocytes Nitrite Labor Signs Protein Cervic Dilation Cervic Effacement Cervic Station Type Weight in lbs Pre/Post Dialysis Refused BP Diastolic BP Location Tested BP Systolic BP Type Fetus Heart Rate Present Fetus Movement Comments Flowsheet Date 09/06/2025 Sierra Score Blood Edema Fundus Height Fundus Units Glucose Ketones Leukocytes Nitrite Labor Signs Protein Cervic Dilation Cervic Effacement Cervic Station Type Weight in lbs Pre/Post Dialysis Refused Weight 243.397773491366 BP Diastolic BP Location Tested BP Systolic BP Type 70 120 Fetus Heart Rate Present Fetus Movement Comments Flowsheet Date 09/10/2025 Sierra Score Blood Edema Fundus Height Fundus Units Glucose Ketones Leukocytes Nitrite Labor Signs Protein Cervic Dilation Cervic Effacement Cervic Station none trace Negative Meriwether Garnett neg 2cm 70% -3 Type Weight in lbs Pre/Post Dialysis Refused Weight 243.306911857205 BP Diastolic BP Location Tested BP Systolic BP Type 70 118 sitting Fetus Heart Rate Present A 148 Present Fetus Movement A Yes Comments edema hands/feet, heartburn, low back pain, vaginal pressure Flowsheet Date 09/17/2025 Sierra Score Blood Edema Fundus Height Fundus Units Glucose Ketones Leukocytes Nitrite Labor Signs Protein Cervic Dilation Cervic Effacement Cervic Station 39 cm none 1+ trace 2cm 70% -3 Type Weight in lbs Pre/Post Dialysis Refused Weight 242.115742568167 BP Diastolic BP Location Tested BP Systolic BP Type 70 122 Fetus Heart Rate Present A 164 Present Fetus Movement A Yes Comments low back pain, vaginal press ure, swelling in hands/feet Flowsheet Date 09/24/2025 Sierra Score Blood Edema Fundus Height Fundus Units Glucose Ketones Leukocytes Nitrite Labor Signs Protein Cervic Dilation Cervic Effacement Cervic Station none 1+ Negative Meriwether Garnett trace 3cm 70% -4 Type Weight in lbs Pre/Post Dialysis Refused Weight 244.543298840679 BP Diastolic BP Location Tested BP Systolic BP Type 76 122 sitting Fetus Heart Rate Present A 132 Present Fetus Movement A Yes Comments edema- feet/hands/legs ,hear tburn, low back pain Flowsheet Date 09/25/2025 Sierra Score Blood Edema Fundus Height Fundus Units Glucose Ketones Leukocytes Nitrite Labor Signs Protein Cervic Dilation Cervic Effacement Cervic Station none 1+ neg Type Weight in lbs Pre/Post Dialysis Refused Weight 248.655837382178 BP Diastolic BP Location Tested BP Systolic BP Type 64 126 Fetus Heart Rate Present A 144 Present Fetus Movement A Yes Comments x2 episodes of leaking from vagina today, increased pelvic pressure, vaginal pressure, low back pain Menstrual History Last Menstrual Date Menses Monthly On Bcp Conception Prior Menses Frequency Hcg Plus Date Menarche Onset Age 0212/13/2024 Genetic Screening And Infection History Question Response Note Patient's Age Will Be 35 Years Or Older At Estim ated Date of Delivery false Thalassemia (Upper Sorbian, [place], Mediterranean, Or Background): MCV < 80 false Neural Tube Defect (Meningomyelocele, Spina Bifi da, Or Anencephaly) false Congenital Heart Defect false Down Syndrome false Maco-Sachs (eg, Lutheran, Cajun, Upper Sorbian-Dimmit) f alse Dustin Disease false Sickle Cell Disease Or Trait () false Hemophilia Or Other Blood Disorders false Muscular Dystrophy false Cystic Fibrosis false [facility] Chorea false Intellectual Disability/Autism false If Yes, Was Person Tested For Fragile X? false Other Inherited Genetic Or Chromosomal Disorder false Maternal Metabolic Disorder (eg, Type 1 Diabetes , PKU) false Patient Or Baby's Father Had A Child With Defects Not Listed Above false Recurrent Loss, Or A Stillbirth false Medications (including Suppl ements, Vitamins, Herbs, OTC Drugs), Illicit/Recreational Drugs, Alcohol true Any Other Genetic History false Live With Someone With TB Or Exposed To TB false Patient Or Partner Has History Of Genital Herpes false Rash Or Viral Illness Since Last Menstrual Perio d false History Of STD, Gonorrhea, Chlamydia, HPV, Syphi lis true Other Infection History false History of HIV false History of Hepatitis false Prior GBS-infected child false Hemoglobinopathy Or Carrier false Other Structural Defect false Recent Travel History Outside of Country false Mental Retardation/Autism false Delivery Information Delivery Date Delivery Type Labor Anesthesia Weeks Gestation Incision Type Labor Labor Length Hrs Delivered By Post Complications Tubal Sterilization Discharge Date Comments Discharge Information Feeding Method Contraceptive Method Maternal HG B and HCT Levels
--- OUTSIDE RECORDS SUMMARY | 2025-09-25 15:05 | XMS_ITS | Continuity of Care Document ---
Author Organization [place] - Fabio Myers [facility] Rafael, LFelisha, [facility] Address [address] [place] [address] Assessment No assessment recorded. Plan of Treatment Reminders Order Date Submit Date Provider Last Modified By Organization Details Last Modified Time Details Appointments RETURN OB 2024 01:15P M Alvaro Angelo MD Not available Not available Not available Lab streptoco ccus group B, culture, unspecifi ed specimen 2024 025 ANNA [employer] [facility], [address] [place] [address] [address], [address] [place], [address], 09/02/2025 14:26:34 Referral None recorded. Procedures None recorded. Surgeries None recorded. Imaging None recorded. Medication Orders None recorded. Patient TargetsNo targets recorded. Patient InstructionsNo instructions recorded. Reason for Referral None Reported. Results Created Date Observation Date Name Description Value Unit Range Abnormal Flag Note LastModifiedBy Organization Detail LastModifiedTime 02/27/2002/27/2025 URINA LYSIS , COMPL ETE color YELLOW yellow normal Not Available [employer] [address] [place], [address], 02/27/2025 22:28:50 02/27/2002/27/2025 URINA LYSIS , COMPL ETE appearance CLEAR clear normal Not Available [facility] [address] [place], [address], 02/27/2025 22:28:50 02/27/2002/27/2025 URINA LYSIS , COMPL ETE specific gravity 1.012 1.001- 1.035 normal Not Available [address], [address], 02/27/2025 22:28:50 02/27/20 25 02/27/2025 URINA LYSIS , COMPL ETE pH 7.5 5.0-8. 0 normal Not Available [address], [address], 02/27/2025 22:28:50 02/27/20 25 02/27/2025 URINA LYSIS , COMPL ETE glucose NEGATI VE negati ve normal Not Available [address], [address], 02/27/2025 22:28:50 02/27/20 25 02/27/2025 URINA LYSIS , COMPL ETE bilirubin NEGATI VE negati ve normal Not Available [address], [address], 02/27/2025 22:28:50 02/27/20 25 02/27/2025 URINA LYSIS , COMPL ETE ketones NEGATI VE negati ve normal Not Available [address], [address], 02/27/2025 22:28:50 02/27/20 25 02/27/2025 URINA LYSIS , COMPL ETE occult blood NEGATI VE negati ve normal Not Available [address], [address], 02/27/2025 22:28:50 02/27/20 25 02/27/2025 URINA LYSIS , COMPL ETE protein NEGATI VE negati ve normal Not Available [address], [address], 02/27/2025 22:28:50 02/27/20 25 02/27/2025 URINA LYSIS , COMPL ETE nitrite NEGATI VE negati ve normal Not Available [address], [address], 02/27/2025 22:28:50 02/27/20 25 02/27/2025 URINA LYSIS , COMPL ETE leukocyte esterase TRACE negati ve abnormal Not Available [address], [address], 02/27/2025 22:28:50 02/27/20 25 02/27/2025 URINA LYSIS , COMPL ETE WBC NONE SEEN /hpf < or = 5 normal Not Available [address], [address], 02/27/2025 22:28:50 02/27/20 25 02/27/2025 URINA LYSIS , COMPL ETE RBC NONE SEEN /hpf < or = 2 normal Not Available [address], [address], 02/27/2025 22:28:50 02/27/20 25 02/27/2025 URINA LYSIS , COMPL ETE squamous epithelial cells 6-10 /hpf < or = 5 abnormal Not Available [address], [address], 02/27/2025 22:28:50 02/27/20 25 02/27/2025 URINA LYSIS , COMPL ETE bacteria NONE SEEN /hpf none seen normal Not Available [address], [address], 02/27/2025 22:28:50 02/27/20 25 02/27/2025 URINA LYSIS , COMPL ETE hyaline cast NONE SEEN /lpf none seen normal Not Available [address], [address], 02/27/2025 22:28:50 02/27/20 25 02/27/2025 URINA LYSIS , COMPL ETE note This urine was jim zed for the prese nce of WBC, RBC, bacte terry, casts , and other forme d eleme nts. Only those eleme nts seen were repor bruce. Not Available [address], [address], 02/27/2025 22:28:50 02/27/20 25 02/27/2025 CBC (INCL UDES DIFF/ PLT) white blood cell count 8.9 thous and/u L 3.8-10 .8 normal Not Available [address], [address], 02/27/2025 22:28:51 02/27/20 25 02/27/2025 CBC (INCL UDES DIFF/ PLT) red blood cell count 4.42 erick on/uL 3.80-5 .10 normal Not Available [address], [address], 02/27/2025 22:28:51 02/27/20 25 02/27/2025 CBC (INCL UDES DIFF/ PLT) hemoglobin 13.2 g/dL 11.7-1 5.5 normal Not Available [address], [address], 02/27/2025 22:28:51 02/27/2002/27/2025 CBC (INCL UDES DIFF/ PLT) hematocrit 41.4 % 35.0-4 5.0 normal Not Available [employer] [address], [address], 02/27/2025 22:28:51 02/27/20 25 02/27/2025 CBC (INCL UDES DIFF/ PLT) MCV 93.7 fL 80.0-1 00.0 normal Not Available [facility] [address], [address], 02/27/2025 22:28:51 02/27/20 25 02/27/2025 CBC (INCL UDES DIFF/ PLT) MCH 29.9 pg 27.0-3 3.0 normal Not Available [address], [address], 02/27/2025 22:28:51 02/27/20 25 02/27/2025 CBC (INCL UDES DIFF/ PLT) MCHC 31.9 g/dL 32.0-3 6.0 low For adult s, a sligh t decre ase in the calcu lated MCHC value (in the range of 30 to 32 g/dL) is most likel y not clini solomon signi fican t; dionneev er, it shoul d be inter prete d with cauti on in corre latio n with other red cell mariana eters and the patie nt's clini rajiv condi tion. Not Available [address], [address], 02/27/2025 22:28:51 02/27/20 25 02/27/2025 CBC (INCL UDES DIFF/ PLT) RDW 12.5 % 11.0-1 5.0 normal Not Available [address], [address], 02/27/2025 22:28:51 02/27/20 25 02/27/2025 CBC (INCL UDES DIFF/ PLT) platelet count 294 thous and/u L 140-40 0 normal Not Available [employer] [address], [address], 02/27/2025 22:28:51 02/27/20 25 02/27/2025 CBC (INCL UDES DIFF/ PLT) MPV 11.6 fL 7.5-12 .5 normal Not Available [address], [address], 02/27/2025 22:28:51 02/27/20 25 02/27/2025 CBC (INCL UDES DIFF/ PLT) absolute neutrophils 6408 cells /uL 1500-7 800 normal Not Available [facility] - [address], [address], 02/27/2025 22:28:51 02/27/20 25 02/27/2025 CBC (INCL UDES DIFF/ PLT) absolute lymphocytes 1833 cells /uL 850-39 00 normal Not Available [facility] [address], [address], 02/27/2025 22:28:51 02/27/20 25 02/27/2025 CBC (INCL UDES DIFF/ PLT) absolute monocytes 481 cells /uL 200-95 0 normal Not Available [facility] [address], [address], 02/27/2025 22:28:51 02/27/20 25 02/27/2025 CBC (INCL UDES DIFF/ PLT) absolute eosinophils 151 cells /uL 15-500 normal Not Available [facility] [address], [address], 02/27/2025 22:28:51 02/27/20 25 02/27/2025 CBC (INCL UDES DIFF/ PLT) absolute basophils 27 cells /uL 0-200 normal Not Available [facility] [address], [address], 02/27/2025 22:28:51 02/27/20 25 02/27/2025 CBC (INCL UDES DIFF/ PLT) neutrophils 72 % normal Not Available [facility] [address], [address], 02/27/2025 22:28:51 02/27/20 25 02/27/2025 CBC (INCL UDES DIFF/ PLT) lymphocytes 20.6 % normal Not Available [facility] [address], [address], 02/27/2025 22:28:51 02/27/20 25 02/27/2025 CBC (INCL UDES DIFF/ PLT) monocytes 5.4 % normal Not Available [facility] [address], [place], [address], 02/27/2025 22:28:51 02/27/20 25 02/27/2025 CBC (INCL UDES DIFF/ PLT) eosinophils 1.7 % normal Not Available [facility] - [address], [address], 02/27/2025 22:28:51 02/27/20 25 02/27/2025 CBC (INCL UDES DIFF/ PLT) basophils 0.3 % normal Not Available [facility] - [address] [address] [place], [address], 02/27/2025 22:28:51 02/27/20 25 02/27/2025 HEPAT ITIS B SURFA CE ANTIG EN W/REF L CONFI RM hepatitis B surface antigen NON-RE ACTIVE non-re active normal For addit ional infor amy raphael, sabrina e refer to http: //[facility] n.patience stdia gnost ics.c om/fa q/FAQ 202 (This link is being provi ded for infor matio nal/ educa jhonathan l purpo ses only. ) Not Available [facility] - [address], [address], 02/27/2025 22:28:52 02/27/20 25 02/27/2025 HEPAT ITIS C AB W/REF L TO HCV RNA, QN, PCR hepatitis C antibody NON-RE ACTIVE non-re active normal HCV antib maicol was non-r eacti ve. There is no labor atory evide nce of HCV infec tion. In most cases , no furth er actio n is requi red. Howev er, if recen t HCV expos ure is suspe cted, a test for HCV RNA (test code 47151 ) is sugge sted. For addit ional infor matio n pleas e refer to http: //[facility] n.que stdia gnost ics.c om/fa q/FAQ 22v1 (This link is being provi ded for infor matio nal/ educa jhonathan l purpo ses only. ) Not Available [facility] [address] [place], [address], 02/27/2025 22:28:53 02/27/20 25 02/27/2025 RUBEL LA AB (IGG) , IMMUN E STATU S rubella Ab (IgG), immune status 1.58 index normal Index Inter preta tion ----- ----- ----- ---- <0.90 Not consi stent with immun ity 0.90- 0.99 Equiv ocal > or = 1.00 Consi stent with immun ity The prese nce of rubel la IgG antib maicol sugge sts immun izati on or past or curre nt infec tion with rubel la virus . Not Available [facility] [address] [address], [place], [address], 02/27/2025 22:28:53 02/27/20 25 02/27/2025 HIV 1/2 [...] state law prohi bits you from [facility] discl osure of the infor [...] matio n pleas e refer to http: //[facility] raphael.que stdia gnost ics.c om/fa q/FAQ 106 (This link is being provi ded for infor amy trujillo/ educa jhonathan l purpo ses only. ) The perfo rmanc e of this assay has not been clini solomon valid ated in patie nts less than 2 years old. Not Available [employer] [address] [place], [address], 02/27/2025 22:28:54 02/27/20 25 02/27/2025 RPR (DX) W/REF L TITER AND T. PALLI DUM AB, IA RPR (DX) w/refl titer and confirmatory testing NON-RE ACTIVE non-re active normal No labor atory evide nce of syphi lis. If recen t expos ure is suspe cted, submi t a new sampl e in 2-4 weeks . Not Available [employer] [address] [place], [address], 02/27/2025 22:28:55 02/27/20 25 02/27/2025 ANTIB MAICOL SCREE N, RBC W/REF L ID, TITER [...] alloi mmuni zed pregn benjamin. Not Available [employer] [address], [address], 02/27/2025 22:28:56 02/27/20 25 02/27/2025 ABO GROUP AND RH TYPE ABO group O Not Available [employer] [address], [address], 02/27/2025 22:28:57 02/27/20 25 02/27/2025 ABO GROUP AND RH TYPE Rh type RH(D) POSITI VE For addit ional infor matio n, pleas e refer to http: //divina Mayer gnmila ics.c om/fa q/FAQ 111 (This link is being provi ded for infor amy trujillo/ inna lawson ses only. ) Not Available [facility] [address] [address] [address], [place], [address], 02/27/2025 22:28:57 02/27/20 25 02/27/2025 DRUG MONIT OR, PANEL 1, SCREE N, URINE amphetamines NEGATI VE NG/mL <500 See Note A See Note A Not Available [facility] [address] [address] [address], [place], [address], 02/27/2025 22:28:58 02/27/20 25 02/27/2025 DRUG MONIT OR, PANEL 1, SCREE N, URINE barbiturates NEGATI VE NG/mL <300 See Note A See Note A Not Available [facility] [address] [address] [address], [place], [address], 02/27/2025 22:28:58 02/27/20 25 02/27/2025 DRUG MONIT OR, PANEL 1, SCREE N, URINE benzodiazepi duane NEGATI VE NG/mL <100 See Note A See Note A Not Available [facility] [address] [address] [address], [place], [address], 02/27/2025 22:28:58 02/27/20 25 02/27/2025 DRUG MONIT OR, PANEL 1, SCREE N, URINE cocaine metabolite NEGATI VE NG/mL <150 See Note A See Note A Not Available [facility] [address] [address] [address], [place], [address], 02/27/2025 22:28:58 02/27/20 25 02/27/2025 DRUG MONIT OR, PANEL 1, SCREE N, URINE marijuana metabolite NEGATI VE NG/mL <20 See Note A See Note A Not Available [facility] [address] [address] [address], [place], [address], 02/27/2025 22:28:58 02/27/20 25 02/27/2025 DRUG MONIT OR, PANEL 1, SCREE N, URINE methadone metabolite NEGATI VE NG/mL <100 See Note A See Note A Not Available [address] [address] [address], [place], [address], 02/27/2025 22:28:58 02/27/20 25 02/27/2025 DRUG MONIT OR, PANEL 1, SCREE N, URINE opiates NEGATI VE NG/mL <100 See Note A See Note A Not Available [address] [address] [address], [place], [address], 02/27/2025 22:28:58 02/27/20 25 02/27/2025 DRUG MONIT OR, PANEL 1, SCREE N, URINE oxycodone NEGATI VE NG/mL <100 See Note A See Note A Not Available [employer] [address] [address] [address], [place], [address], 02/27/2025 22:28:58 02/27/20 25 02/27/2025 DRUG MONIT OR, PANEL 1, SCREE N, URINE phencyclidin e NEGATI VE NG/mL <25 See Note A See Note A Not Available [address] [address] [address], [place], [address], 02/27/2025 22:28:58 02/27/20 25 02/27/2025 DRUG MONIT OR, PANEL 1, SCREE N, URINE creatinine 108.1 mg/dL > or = 20.0 Not Available [employer] [address] [address] [address], [place], [address], 02/27/2025 22:28:58 02/27/20 25 02/27/2025 DRUG MONIT OR, PANEL 1, SCREE N, URINE pH 7.7 4.5-9. 0 Not Available [employer] [address] [address] [address], [place], [address], 02/27/2025 22:28:58 02/27/20 25 02/27/2025 DRUG MONIT OR, PANEL 1, SCREE N, URINE oxidant NEGATI VE mcg/m L <200 Not Available [address] [address] [place], [address], 02/27/2025 22:28:58 02/27/20 25 02/27/2025 DRUG MONIT ORING TEMPL ATE notes and comments This drug testi ng is for medic al treat ment only. Jim sis was perfo rmed as non-f orens ic testi ng and these resul ts shoul d be used only by healt hcare provi ders to rende r diagn osis or treat ment, or to monit or progr ess of medic al condi tions . Note A: The resul ts are presu mptiv e; based only on tripp pat metho ds, and they have not been confi rmed by a defin itive metho d. [facility] ders needi ng Inter preta tion yanci tance , pleas e conta ct us at 1.877 .40.R XTOX (1.87 [phone] .[phone] ) M-F, 8am to 10pm EST Not Available [address] [address] [address], [place], [address], 02/27/2025 22:28:59 02/27/2002/27/2025 CULTU RE, URINE , ROUTI NE culture, urine, routine SEE NOTE CULTU RE, URINE , ROUTI NE Micro Numbe r: [id number] Test Statu s: Final Speci men Sourc e: Urine Speci men Quali ty: Adequ ate Resul t: No Growt h Not Available [facility] [address] [address] [address], [place], [address], 02/27/2025 22:28:59 02/27/20 25 03/08/2025 THINP REP TIS PAP (REFL ) HPV MRNA E6/E7 clinical information: normal Pregn ant Not Available [facility] [address] [address] [place], [address], 03/08/2025 08:16:51 02/27/20 25 03/08/2025 THINP REP TIS PAP (REFL ) HPV MRNA E6/E7 LMP: normal NONE GIVEN Not Available [address], [address], 03/08/2025 08:16:51 02/27/20 25 03/08/2025 THINP REP TIS PAP (REFL ) HPV MRNA E6/E7 prev. Pap: normal NONE GIVEN Not Available [address], [address], 03/08/2025 08:16:51 02/27/2003/08/2025 THINP REP TIS PAP (REFL ) HPV MRNA E6/E7 prev. BX: normal NONE GIVEN Not Available [address], [address], 03/08/2025 08:16:51 02/27/2003/08/2025 THINP REP TIS PAP (REFL ) HPV MRNA E6/E7 source: normal Cervi x, Endoc ervix Not Available [address], [address], 03/08/2025 08:16:51 02/27/2003/08/2025 THINP REP TIS PAP (REFL ) HPV MRNA E6/E7 statement of adequacy: normal Satis facto ry for evalu ation . Endoc ervic al/tr ansfo rmati on zone compo nent prese nt. Not Available [address], [address], 03/08/2025 08:16:51 02/27/2003/08/2025 THINP REP TIS PAP (REFL ) HPV MRNA E6/E7 general categorizati on: abnormal Cytol ogy Resul ts: Epith elial Cell Abnor malit y Not Available [address], [address], 03/08/2025 08:16:51 02/27/2003/08/2025 THINP REP TIS PAP (REFL ) HPV MRNA E6/E7 interpretati on/result: abnormal Low Grade Squam ous Intra epith elial Lesio n (LSIL ) Not Available [address] [address] [place], [address], 03/08/2025 08:16:51 02/27/20 25 03/08/2025 THINP REP TIS PAP (REFL ) HPV MRNA E6/E7 comment: normal This Pap test has been evalu ated with compu ter yanci bruce techn ology . Sugge st clini rajiv corre latio n and follo w-up as clini solomon appro priat e Not Available [address] [address] [place], [address], 03/08/2025 08:16:51 02/27/2003/08/2025 THINP REP TIS PAP (REFL ) HPV MRNA E6/E7 cytotechnolo gist: normal KMS, CT( CP) CT Scree pat locat ion: [place] [address] [address] [place] [address] Not Available [address] [address] [place], [address], 03/08/2025 08:16:51 02/27/2003/08/2025 THINP REP TIS PAP (REFL ) HPV MRNA E6/E7 pathologist: normal Alisha monique M.D., Board Certi fied in Anato jesús Patho logy and Cytop athol ogy. Phone : [phone] (elec troni c signa ture) Patho logis t Relea se Date/ Time: 03/06 09:25 AM Not Available [address] [address] [place], [address], 03/08/2025 08:16:51 02/27/20 25 03/08/2025 THINP REP [...] clini rajiv infor amy raphael. Not Available [address] [address] [place], [address], 03/08/2025 08:16:51 02/27/20 25 03/08/2025 HPV MRNA [...] ng optio ns. For addit ional infor amy raphael plekeyon e refer to http: //[facility] raphael.que stdia gnost ics.c om/fa q/FAQ 129v1 (This link if provi ded for infor amy raphael/ inna monique purpo ses only. ) Not Available [facility] [address] [place], [address], 03/08/2025 08:16:53 02/27/20 25 02/26/2025 CT + NG + TV, DNA, urine /swab Chlamydia negati ve Not Available [facility] [address] [place], [address], 02/25/2025 18:55:26 02/27/20 25 02/26/2025 CT + NG + TV, DNA, urine /swab Gonorrhea negati ve Not Available [facility] [address] [place], [address], 02/25/2025 18:55:26 02/27/20 25 02/26/2025 CT + NG + TV, DNA, urine /swab Trichomonas negati ve Not Available [facility] [address] [place], [address], 02/25/2025 18:55:26 07/02/20 25 07/02/2025 CBC WBC 11.1 x10 4.0-10 .5 high Not Available [facility] [address] [facility] 1, [place], [address], 07/02/2025 10:24:57 07/02/20 25 07/02/2025 CBC RBC 3.96 x10 3.50-5 .50 Not Available [facility] [address] [facility] 1, [place], [address], 07/02/2025 10:24:57 07/02/20 25 07/02/2025 CBC HGB 12.0 g/dL 12.0-1 6.0 Not Available [facility] [address] [facility] 1, [place], [address], 07/02/2025 10:24:57 07/02/20 25 07/02/2025 CBC HCT 37.1 % 37.0-4 7.0 Not Available [facility] [address] [facility] [address], [place], [address], 07/02/2025 10:24:57 07/02/20 25 07/02/2025 CBC MCV 93.8 fL 80.0-9 9.9 Not Available [facility] [address] [facility] 1, [place], [address], 07/02/2025 10:24:57 07/02/20 25 07/02/2025 CBC MCH 30.4 pg 27.0-3 2.0 Not Available [facility] [address], [place], [address], 07/02/2025 10:24:57 07/02/20 25 07/02/2025 CBC MCHC 32.4 g/dL 32.0-3 6.0 Not Available [facility] [address] [facility] 1, [place], [address], 07/02/2025 10:24:57 07/02/20 25 07/02/2025 CBC RDW 12.9 % 11.5-1 4.5 Not Available [facility] [address] [facility] 1, [place], [address], 07/02/2025 10:24:57 07/02/20 25 07/02/2025 CBC plt 227.7 x10 140.0- 451.0 Not Available [facility] [address] [facility] 1, [place], [address], 07/02/2025 10:24:57 07/02/20 25 07/02/2025 CBC lymphocytes % 15.5 % 20.0-5 0.0 low Not Available [facility] [address] [facility] 1, [place], [address], 07/02/2025 10:24:57 07/02/20 25 07/02/2025 CBC granulcytes % 78.3 % 30.0-7 0.0 high Not Available [facility] [address] [facility] 1, [place], [address], 07/02/2025 10:24:57 07/02/20 25 07/02/2025 CBC monocytes % 4.2 % 2.0-16 .0 Not Available [facility] [address] [place] [facility], [place], [address], 07/02/2025 10:24:57 07/02/20 25 07/02/2025 CBC granulcytes# 8.7 x10 Not Jenny ilable [facility] [address] [facility] [address], [place], [address], 07/02/2025 10:24:57 07/02/20 25 07/02/2025 CBC lymphocytes # 1.7 x10 Not Available [facility] [address] [facility] [address], [place], [address], 07/02/2025 10:24:57 07/02/20 25 07/02/2025 CBC monocytes # 0.5 x10 Not Avai lable [facility] [address] [address], [place], [address], 07/02/2025 10:24:57 07/02/20 25 07/02/2025 GLUCO SE SCREE N glucose screen 135.0 mg/dL Not Available [facility] [address] [facility] [address], [place], [address], 07/02/2025 10:30:30 07/11/20 25 07/11/2025 GLUCO SE SCREE N glucose screen 133.0 mg/dL Not Available [facility] [address] [address], [place], [address], 07/11/2025 10:37:03 08/27/20 25 09/02/2025 CULTU RE, GROUP B STREP WITH SUSCE PTIBI LITY culture, group B strep with susceptibili ty SEE NOTE abnormal CULTU RE, GROUP B STREP WITH SUSCE PTIBI LITY Micro Numbe r: [id number] Test Statu s: Final Speci men [...] See Thera py Comme nts Not Available [facility] [address] [place], [address], 09/02/2025 14:26:34 02/19/20 25 02/12/2025 US, obste tric, 1st trime ster No observ ation record ed. Not Available 02/19 09:09:34 04/25/20 25 04/18/2025 US, obste tric, follo w-up No observ ation record ed. [email or web address] [facility] [address] [place], [address], 04/29/2025 09:24:34 05/11/20 25 05/07/2025 US, obste tric, 2nd trime ster No observ ation record ed. [facility] [address] [place], [address], 05/13/2025 17:57:21 07/05/20 25 07/02/2025 imagi ng/di agnos tic resul t No observ ation record ed. [facility] [address] [place], [address], 07/09/2025 10:35:54 Result Notes None recorded. Problems Name Problem SNOMED Code Status Onset Date Resolution Date Notes Provider Name and Address Organization Details Recorded Time Rheumatoid arthritis 63685372 Active 2022 KERWIN roper [facility] 5 14:16:25 Pain of knee region 4302563598 Completed 202301/24/2025 KERWIN roper [facility] 5 14:16:23 Family history of diabetes mellitus 857618900 Active 2023 KERWIN roper [facility] 5 14:16:18 Normal 07937590 Active 2024 [facility]I [facility] 5 10:22:35 Normal 89738903 Active 2024 ROXI PLUMMER null [facility] 5 10:22:35 Placenta previa partialis 06216594 Active 2024 Alvaro Angelo MD [address] [place] [address], [address], [facility] 5 02:46:26 Low-lying placenta 090117160 Active 2024 Alvaro Angelo MD [address] [place] [address], [address], [facility] 5 11:36:47 Problem Notes None recorded. Procedures Surgical History Date Name Laterality Status Provider Name and Address Organization Details Recorded Time 02/27/20 Date of Last Pap [facility]ear [facility] 18:39:21 02/27/20 liquid based cervical cytology screening [facility]2025 18:39:54 01/31/[address] [facility], LAlisaCRemigio 01/24/2025 14:17:49 01/31/[address] [facility], LRemigioLRemigioCRemigio 01/24/2025 14:18:46 arthroscopy of left knee joint completed [facility], SaschaCRemigio 01/24/2025 14:17:[address] [facility], LRemigioLRemigioCRemigio 01/24/2025 14:17:33 Imaging Results None recorded. Procedure Notes None recorded. Medical Equipment None Reported. Allergies Allergen ID Allergen Name Allergen Category Reaction Reaction Severity Criticality Documentation Date Start Date Code Code System Note Provider Name and Address Organization Details Recorded Time 79033 Bactrim medicatio n hives moderate Not available 05/21/2023 77930 9 RxNorm TREBA NEUSCHGRANTN [facility] 15:30:03 64596 Product containin g penicilli n (product) medicatio n hives moderate Not available 05/21/2023 06248 8001 SNOMED TREBA NEUSCHGRANTN KAVITHA [facility] 15:30:03 57690 Augmentin medicatio n hives moderate Not available 01/24/2025 41719 2 RxNorm [facility] 5 14:19:18 11127 Celebrex medicatio n other moderate Not available 01/24/2025 14160 7 RxNorm TREBA NEUSCHWAN [facility] 15:30:03 73152 Substance with sulfonami de structure and antibacte rial mechanism of action (substanc e) medicatio n hives moderate Not available 04/18/2025 91680 8003 SNOMED TREBA NEUSCHWAN KAVITH[facility], [facility] 5 15:30:03 51930 amoxicill in / clavulana te medicatio n hives Not available [facility] 09/06/20252022 65583 RxNorm Yessy ates PCN and amoxi cilli n fine Not Available anna - External Data Service - prod 5 07:58:34 00915 celecoxib medicatio n Not available Not available [facility] 09/06/20252022 20636 7 RxNorm Not Available anna - External Data Service - [facility] 5 07:58:34 Medications Name Sig Start Date [...] completed for congesti ons/ear pain; Recorded 09/24/20 7:58AM by Bonnie Kemp, Office Visit; Refill Quantity : 48; Tablet; Not Available Not Available Not Available Mirena 10/[address] Martinez; 0; Recorded 09/24/20 7:58AM by Bonnie Kemp, Office Visit; Not Available Not Available Not Available Gummies 4 qd 09/10 completed Not Available Not Available Not Available Vitals Date Recorded Body height Body mass index (BMI) Body weight Oxygen saturation Heart rate Body temperature Respiratory rate Systolic And Diastolic Provider Name and Address Organization Details Last Updated DateTime 170.18 cm 37.7 kg/m2 681051. 76 g 97 % 80 /min 98.5 [degF] 18 /min 126/72 mm[Hg] KERWIN DUNAWAY [facility] 11:10:12 Social History Question Answer Notes LastModified by Organizat ion Details LastModified Time Tobacco Smoking Status Former Smoker ANTONIO roper [facility] 01/24/2023 10:09:31 Are You Blind Or Do You Have Difficulty Seeing? No Information not available 01/24/2025 Are You Deaf Or Do You Have Serious Difficulty Hearing? No [email or web address] Information not available 01/24/2023 When Did You Quit Smoking? 1-5yearssinc elastcigaret te Information not available 01/24/2023 Do You Work In Healthcare? No Information not available 01/24/2025 What Was The Date Of Your Most Recent Tobacco Screening? 03/26/2025 [email or web address] Information not available 03/26/2025 What Is Your Relationship Status? Information not available 01/24/2025 Have You Recently Traveled Abroad? No [email or web address] Information not available 01/24/2023 Do You Have Difficulty Walking Or Climbing Stairs? No [email or web address] Information not available 01/24/2023 Sex: Unknown Functional [...] independently without assistance or assistive devices? [email or web address] Information not available 01/24/2023 Do you have difficulty doing errands alone? No Information not available 01/24/2023 Are you able to care for yourself independently? 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 No [email or web address] Information not available 01/24/2023 Do you or have you ever used e-cigarettes or vape? Former user of electronic cigarettes Information not available 01/24/2025 Mental Status Question Answer Note LastModified by Organization D etails LastModified Time Do you have difficulty concentrating, remembering or making decisions? No [email or web address] Information no t available 01/24/2023 Family History Relationship Description Onset Age of this Age Resolved Age Notes LastModified by Organization Details LastModified Time Father Diabetes mellitus [email or web address] Not available 2023 09:43:45 Paternal Grandmother Malignant neoplasm of ovary [email or web address] Not available 10:54:13 Notes:Cancer Maternal Grandf ather: Brain Cancer Paternal Grandmother: Ovarian Cancer Medical History Condition Response Coronary Artery Disease N Other N Gout N Kidney Stones N Blood Diseases N Hyperthyroidism N Breast Cancer N Blood Transfusion N Depression N COPD N Lung Disease [...] Recorded Time IPV 09/28/2000 completed Susan roper [facility] 10/09/2024 09:35:10 MMR 04/11/1996 [facility] 10/09/2024 09:35:10 MMR 09/28/2000 [facility] 10/09/2024 09:35:10 Tdap 11/17/2010 completed Susan roper [facility] 10/09/2024 09:35:10 Tdap 02/20/2015 completed Susan roper [facility] 10/09/2024 09:35:10 Hep B, unspecified formulation 1995 completed Susan roper [facility] 10/09/2024 09:35:10 Hep B, unspecified formulation 02/28/1996 completed Susan roper [facility] 10/09/2024 09:35:10 Hep B, unspecified formulation 1995 completed Susan roper [facility] 10/09/2024 09:35:10 OPV, trivalent 1995 completed Susan Wilson null, [facility] 10/09/2024 09:35:10 OPV, trivalent 02/28/1996 completed Susan Wilson null, [facility] 10/09/2024 09:35:10 OPV, trivalent 1995 completed Susan Wilson null, [facility] 10/09/2024 09:35:10 DTP-Hib 11/29/1996 completed Susan Wilson null, [facility] 10/09/2024 09:35:10 DTP-Hib 1995 completed Susan Wilson null, [facility] 10/09/2024 09:35:10 DTP-Hib 02/28/1996 completed Susan Wilson null, [facility] 10/09/2024 09:35:10 DTP-Hib 1995 completed Susan Wilson null, [facility] 10/09/2024 09:35:10 DTaP 09/28/2000 completed Susan Wilson null, [facility] 10/09/2024 09:35:10 Past Encounters Encounter ID Performer Location Encounter Start Date Encounter Closed Date Diagnosis/Indication Diagnosis SNOMED-CT Code Diagnosis ICD10 Code Diagnosis IMO Codes Diagnosis Note [id number] Alvaro Angelo MD [facility] [address] [place] [id number] 07/30/2025 10:40:36 07/30/2025 11:28:24 Normal 72158654 Z34.83 Gestation period, 32 weeks 5777637 Z3A.32 5100009 [id number] Alvaro Angelo MD [facility] [address] [place] [address] 08/13/2025 10:44:33 08/13/2025 11:38:15 Normal 65481001 Z34.83 Gestation period, 34 weeks 39758318 Z3A.34 6713713 [id number] Alvaro Angelo MD [facility] [address] [place] [address] 08/27/2025 10:35:57 08/27/2025 11:34:41 Normal 12288704 Z34.83 Gestation period, 36 weeks 15861772 Z3A.36 3719067 Health Concerns Section Related Observation LastModified by Organization Detai ls LastModified Time None Recorded Concern Status LastModified by Organization Details LastModified Time None Recorded Payers Encounter Date Sequence Insurance Name Policy Number Policy Fierro Covered Member ID Fierro Member ID Guarantor Name 08/27/2025 1 [place] [id number] 3 Jeffy Zimmerman [id number] Jeffy Zimmerman Notes Date Note Type Note Provider Name and Address Organization Details Recorded Time 08/27/20 25 text/ht ml jr ob routineReported by PatientHPIFor associated symptoms, patient reportscrampingandcontractions (michael mata)but reportsno abdominal pain,normal movement,no bleeding,no vaginal discharge,no vaginal/vulvar itching or irritation,no dysuria,no frequency,no urgency,no hematuria,no fever,no nausea,no emesis,no constipation,no diarrhea/loose stool,no edema,no visual changes,no headache,no dizziness, andno breathlessness.heartburn/ acid reflux with meals, intermittent vaginal pressureDenies any tobacco, nicotine, alcohol, or drug useROS as noted in the HPI Alvaro Angelo MD [address] [place] [address], [phone], [facility] 08/27/2025 11:34:14 OBGyn Episode Ob Episode Information Episode Created Date Number of Fetuses Patient Bloodtype Patient rh Status Prepregnancy Weight lbs Domestic Partner Domestic Partner Phone Father Name Commercial Loan Administrator Status 01/25/20 25 1 O Positive Damián OPEN Fetus Data First Name Last Name Admitted to NICU Weight (g) Sex Living Outcome Pediatric Complications Fetus ID Race Codes Race Delivery Type [id number] Problems Problem Notes 07/30/25- pt declined TDaP an d RSV injectionGroup B Strep Positive - Use ancefInduction set for saturday 09/29 Problem Name Start Date End Date Resolution Snomed Code Not e Normal 02/25/2025 [id number] Merrill Calculation Initial Merrill Date Initial Exam Date Initial Exam Provider Initial Ultrasound Date Last Menstrual Period Date Ultra Sound Weeks Gestation 09/19/2025 01/24/2025 02/12/2025 12/13/2024 8 Eighteen To Twenty Week Merrill Update Ultra Sound Date Fundal Height At Umbil Quickening Date Ultra Sound Latest Weeks Gestation Final Merrill Confirmed By Final Merrill Confirmed Date Final Merrill Date Ultra Sound Latest Days Gestation 0 02/14/2025 09/24/20 0 Pre- Flowsheet Flowsheet Date 01/24/2025 Sierra Score Blood Edema Fundus Height Fundus Units Glucose Ketones Leukocytes Nitrite Labor Signs Protein Cervic Dilation Cervic Effacement Cervic Station Type Weight in lbs Pre/Post Dialysis Refused Weight 227.302049815255 BP Diastolic BP Location Tested BP Systolic [...] Present Fetus Movement Comments u/s on 02/12/25 MERRILL 09/24/25, EGA 8.0, FHR 153 Flowsheet Date 02/26/2025 Sierra Score Blood Edema Fundus Height Fundus Units Glucose Ketones Leukocytes Nitrite Labor Signs Protein Cervic Dilation Cervic Effacement Cervic Station Type Weight in lbs Pre/Post Dialysis Refused Weight 221.723571630974 BP Diastolic BP Location Tested BP Systolic [...] Weight in lbs Pre/Post Dialysis Refused Weight 221.072155108795 BP Diastolic BP Location Tested BP Systolic [...] Weight in lbs Pre/Post Dialysis Refused Weight 225.453682949219 BP Diastolic BP Location Tested BP Systolic [...] Present Fetus Movement Comments u/s on 04/18/25, MERRILL 09/23/25, EGA 17.3, Breech, Placenta posterior and Partial previa. Flowsheet Date 05/07/2025 Sierra Score Blood Edema Fundus Height Fundus Units Glucose Ketones Leukocytes Nitrite Labor Signs Protein Cervic Dilation Cervic Effacement Cervic Station Type Weight in lbs Pre/Post Dialysis Refused BP Diastolic BP Location Tested BP Systolic BP Type Fetus Heart Rate Present Fetus Movement Comments u/s on 05/07/25, MERRILL 09/21/25 , EGA 20.3, Normal anatomy scan. Vertex, Low- lying placenta. Flowsheet Date 05/21/2025 Sierra Score Blood Edema Fundus Height Fundus Units Glucose Ketones Leukocytes Nitrite Labor Signs Protein Cervic Dilation Cervic Effacement Cervic Station 22 cm none trace trace Type Weight in lbs Pre/Post Dialysis Refused Weight 230.405759956789 BP Diastolic BP Location Tested BP Systolic BP Type 62 L arm 106 Fetus Heart Rate Present A 148 Present Fetus Movement A Yes Comments heartburn Flowsheet Date 06/18/2025 Sierra Score Blood Edema Fundus Height Fundus Units Glucose Ketones Leukocytes Nitrite Labor Signs Protein Cervic Dilation Cervic Effacement Cervic Station Type Weight in lbs Pre/Post Dialysis Refused Weight 229.1006756767 BP Diastolic BP Location Tested BP Systolic [...] Weight in lbs Pre/Post Dialysis Refused Weight 234.086083945631 BP Diastolic BP Location Tested BP Systolic [...] Weight in lbs Pre/Post Dialysis Refused Weight 232.322173701109 BP Diastolic BP Location Tested BP Systolic [...] Weight in lbs Pre/Post Dialysis Refused Weight 236.087032937706 BP Diastolic BP Location Tested BP Systolic BP Type 76 120 Fetus Heart Rate Present A 144 Present Fetus Movement A Yes Comments mild swelling, heartburn int ermittent Flowsheet Date 08/13/2025 Sierra Score Blood Edema Fundus Height Fundus Units Glucose Ketones Leukocytes Nitrite Labor Signs Protein Cervic Dilation Cervic Effacement Cervic Station 34 cm none trace Lenoir Mata neg Type Weight in lbs Pre/Post Dialysis Refused Weight 239.213354406634 BP Diastolic BP Location Tested BP Systolic [...] Weight in lbs Pre/Post Dialysis Refused Weight 241.810673872960 BP Diastolic BP Location Tested BP Systolic [...] Effacement Cervic Station none none Negative Michael Mata neg 2cm 70% -3 Type Weight in lbs Pre/Post Dialysis Refused Weight 241.364340149140 BP Diastolic BP Location Tested BP Systolic [...] Weight in lbs Pre/Post Dialysis Refused Weight 243.013929522392 BP Diastolic BP Location Tested BP Systolic BP Type 70 120 Fetus Heart Rate Present Fetus Movement Comments Flowsheet Date 09/10/2025 Sierra Score Blood Edema Fundus Height Fundus Units Glucose Ketones Leukocytes Nitrite Labor Signs Protein Cervic Dilation Cervic Effacement Cervic Station none trace Negative Michael Mata neg 2cm 70% -3 Type Weight in lbs Pre/Post Dialysis Refused Weight 243.716430356957 BP Diastolic BP Location Tested BP Systolic [...] Weight in lbs Pre/Post Dialysis Refused Weight 242.073918107578 BP Diastolic BP Location Tested BP Systolic BP Type 70 122 Fetus Heart Rate Present A 164 Present Fetus Movement A Yes Comments low back pain, vaginal press ure, swelling in hands/feet Flowsheet Date 09/24/2025 Sierra Score Blood Edema Fundus Height Fundus Units Glucose Ketones Leukocytes Nitrite Labor Signs Protein Cervic Dilation Cervic Effacement Cervic Station none 1+ Negative Michael Mata trace 3cm 70% -4 Type Weight in lbs Pre/Post Dialysis Refused Weight 244.772270752454 BP Diastolic BP Location Tested BP Systolic [...] Weight in lbs Pre/Post Dialysis Refused Weight 248.678026870368 BP Diastolic BP Location Tested BP Systolic [...] Estim ated Date of Delivery false Thalassemia (Bolivian, Persian, Mediterranean, Or Background): MCV < 80 false Neural Tube Defect (Meningomyelocele, Spina Bifi da, Or Anencephaly) false Congenital Heart Defect false Down Syndrome false Maco-Sachs (eg, Rastafari, Cajun, Rwandan-Richardson) f alse Dustin Disease false Sickle Cell Disease Or Trait () false Hemophilia Or Other Blood Disorders false Muscular Dystrophy false Cystic Fibrosis false [place]'s Chorea false Intellectual Disability/Autism false If Yes, [...]
--- OUTSIDE RECORDS SUMMARY | 2025-09-25 15:05 | XMS_ITS | Clinical Summary ---
Author Organization [facility] Address [address] 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 Active methotrexate (RHEUMATREX) 2.5 mg Tablet 3 Active folic acid (FOLVITE) 1 mg tablet 3 Active omeprazole (PriLOSEC) 40 mg Capsule, Delayed Release(E.C.) 3 Active simethicone 125 mg Tablet, Chewable Dispense (3) 125 mg Simethicone chewable tablets with prep as directed. 3 Tablet 3 Active Active Problems Problem Noted Date Diagnosed Date Allergic rhinitis due to house dust mite 023 Family History Medical History Relation Name Comments Colon Cancer Neg Hx Social History Tobacco Use Types Packs/Day Years Used Date Smoking Tobacco: Former Cigarettes Smokeless Tobacco: Never Tobacco Cessation:Counseling Given: No Alcohol Use Standard Drinks/Week Comments Not Currently 0 (1 standard drink = 0.6 oz pur e alcohol) Feeling Safe Answer Date Recorded Are you in a relationship wi th someone who hurts you emotionally and/or physically? 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 Gender Identity Female 05/15/2023 6:46 PM CDT Sexual Orientation Straight 05/15/2023 6: 46 PM CDT Last Filed Vital Signs Vital Sign Reading Time Taken Comments Blood Pressure 132/76 07/28/2023 1:05 PM CDT Pulse 72 05/11/2023 10:50 AM CDT Temperature 36.9 C (98.4 F) 03/01/2023 3:15 PM CDT Respiratory Rate 12 05/11/2023 10:50 AM CDT Oxygen Saturation 100% 05/11/2023 10:50 AM CDT Inhaled Oxygen Concentration - - Weight 97.5 kg (215 lb) 07/28/2023 1:05 PM CDT Height 172.7 cm (5' 8 ) 07/28/2023 1:05 PM CDT Body Mass Index 32.69 07/28/2023 1:05 PM CDT Plan of Treatment Health Maintenance Due Date Last Done Comments DTAP/TDAP/TD VACCINES (1 - Tdap) 2014 HEPATITIS B VACCINES (1 of 3 - 19+ 3-dose series) 03/24 HPV/Cotest (21-29) 2016 HPV VACCINES (1 - 3-dose SCDM series) 2022 CERVICAL CANCER SCREENING 2025 HPV/Cotest (30-65) 2025 PAP SMEAR 2025 INFLUENZA VACCINE (#[address]) [address] [place] [id number] [place] [address] [place] [address] CHOICE [phone] Advance Directives For more information, please contact: [phone] * Full Code (Latest Code Status on File) Date Activated Date Inactivated Comments 05/11/2023 9:25 AM 05/11/2023 1:06 PM Care Teams Die Finisher Forging Relationship Specialty Start Date End Date Bunny Hooks DO [address] [facility] [address] [place] [address] PCP - General Internal Medicine 03/01/23
--- OUTSIDE RECORDS SUMMARY | 2025-09-25 15:05 | XMS_ITS | Continuity of Care Document ---
Author Organization [place] - Fabio Myers [facility] [place], [facility] [place] ([facility]) Address [address] [place] [address] Assessment No assessment recorded. Plan of Treatment [...] ETE color YELLOW yellow normal Not Available [address] [address] [place], [address], 02/27/2025 22:28:50 02/27/2002/27/2025 URINA LYSIS , COMPL ETE appearance CLEAR clear normal Not Available [facility] [address] [address] [place], [address], 02/27/2025 22:28:50 02/27/20 25 02/27/2025 URINA LYSIS , COMPL ETE specific gravity 1.012 1.001- 1.035 normal Not Available [employer] [address] [address] [place], [address], 02/27/2025 22:28:50 02/27/20 25 02/27/2025 URINA LYSIS , COMPL ETE pH 7.5 5.0-8. 0 normal Not Available [address], [address], 02/27/2025 22:28:50 02/27/20 25 02/27/2025 URINA LYSIS , COMPL ETE glucose NEGATI VE negati ve normal Not Available [address], [address], 02/27/2025 22:28:50 02/27/20 25 02/27/2025 URINA LYSIS , COMPL ETE bilirubin NEGATI VE negati ve normal Not Available [address], [address], 02/27/2025 22:28:50 02/27/20 25 02/27/2025 URINA LYSIS , COMPL ETE ketones NEGATI VE negati ve normal Not Available [address], [address], 02/27/2025 22:28:50 02/27/20 25 02/27/2025 URINA LYSIS , COMPL ETE occult blood NEGATI VE negati ve normal Not Available [address], [address], 02/27/2025 22:28:50 02/27/20 25 02/27/2025 URINA LYSIS , COMPL ETE protein NEGATI VE negati ve normal Not Available [address], [address], 02/27/2025 22:28:50 02/27/20 25 02/27/2025 URINA LYSIS , COMPL ETE nitrite NEGATI VE negati ve normal Not Available [address], [address], 02/27/2025 22:28:50 02/27/20 25 02/27/2025 URINA LYSIS , COMPL ETE leukocyte esterase TRACE negati ve abnormal Not Available [address], [address], 02/27/2025 22:28:50 02/27/20 25 02/27/2025 URINA LYSIS , COMPL ETE WBC NONE SEEN /hpf < or = 5 normal Not Available [facility] [address], [address], 02/27/2025 22:28:50 02/27/20 25 02/27/2025 URINA LYSIS , COMPL ETE RBC NONE SEEN /hpf < or = 2 normal Not Available [facility] [address], [address], 02/27/2025 22:28:50 02/27/20 25 02/27/2025 URINA LYSIS , COMPL ETE squamous epithelial cells 6-10 /hpf < or = 5 abnormal Not Available [address], [address], 02/27/2025 22:28:50 02/27/20 25 02/27/2025 URINA LYSIS , COMPL ETE bacteria NONE SEEN /hpf none seen normal Not Available [address], [address], 02/27/2025 22:28:50 02/27/20 25 02/27/2025 URINA LYSIS , COMPL ETE hyaline cast NONE SEEN /lpf none seen normal Not Available [address], [address], 02/27/2025 22:28:50 02/27/20 25 02/27/2025 URINA LYSIS , COMPL ETE note This urine was jim zed for the prese nce of WBC, RBC, bacte terry, casts , and other forme d eleme nts. Only those eleme nts seen were repor bruce. Not Available [address], [address], 02/27/2025 22:28:50 02/27/20 25 02/27/2025 CBC (INCL UDES DIFF/ PLT) white blood cell count 8.9 thous and/u L 3.8-10 .8 normal Not Available [address], [address], 02/27/2025 22:28:51 02/27/20 25 02/27/2025 CBC (INCL UDES DIFF/ PLT) red blood cell count 4.42 erick on/uL 3.80-5 .10 normal Not Available [address], [address], 02/27/2025 22:28:51 02/27/20 25 02/27/2025 CBC (INCL UDES DIFF/ PLT) hemoglobin 13.2 g/dL 11.7-1 5.5 normal Not Available [address], [address], 02/27/2025 22:28:51 02/27/20 25 02/27/2025 CBC (INCL UDES DIFF/ PLT) hematocrit 41.4 % 35.0-4 5.0 normal Not Available [address], [address], 02/27/2025 22:28:51 02/27/20 25 02/27/2025 CBC (INCL UDES DIFF/ PLT) MCV 93.7 fL 80.0-1 00.0 normal Not Available [address], [address], 02/27/2025 22:28:51 02/27/20 25 02/27/2025 CBC (INCL UDES DIFF/ PLT) MCH 29.9 pg 27.0-3 3.0 normal Not Available [address], [address], 02/27/2025 22:28:51 02/27/20 25 02/27/2025 CBC (INCL [...] nt's clini rajiv condi tion. Not Available [address], [address], 02/27/2025 22:28:51 02/27/20 25 02/27/2025 CBC (INCL UDES DIFF/ PLT) RDW 12.5 % 11.0-1 5.0 normal Not Available [address], [address], 02/27/2025 22:28:51 02/27/20 25 02/27/2025 CBC (INCL UDES DIFF/ PLT) platelet count 294 thous and/u L 140-40 0 normal Not Available [facility] [address], [address], 02/27/2025 22:28:51 02/27/20 25 02/27/2025 CBC (INCL UDES DIFF/ PLT) MPV 11.6 fL 7.5-12 .5 normal Not Available [facility] [address], [address], 02/27/2025 22:28:51 02/27/20 25 02/27/2025 CBC (INCL UDES DIFF/ PLT) absolute neutrophils 6408 cells /uL 1500-7 800 normal Not Available [facility] [address], [address], 02/27/2025 22:28:51 02/27/20 25 02/27/2025 CBC (INCL UDES DIFF/ PLT) absolute lymphocytes 1833 cells /uL 850-39 00 normal Not Available [facility] [address], [place], [address], 02/27/2025 22:28:51 02/27/20 25 02/27/2025 CBC (INCL UDES DIFF/ PLT) absolute monocytes 481 cells /uL 200-95 0 normal Not Available [facility] [address], [address], 02/27/2025 22:28:51 02/27/20 25 02/27/2025 CBC (INCL UDES DIFF/ PLT) absolute eosinophils 151 cells /uL 15-500 normal Not Available [facility] [address], [address], 02/27/2025 22:28:51 02/27/20 25 02/27/2025 CBC (INCL UDES DIFF/ PLT) absolute basophils 27 cells /uL 0-200 normal Not Available [facility] [address], [address], 02/27/2025 22:28:51 02/27/20 25 02/27/2025 CBC (INCL UDES DIFF/ PLT) neutrophils 72 % normal Not Available [address], [address], 02/27/2025 22:28:51 02/27/20 25 02/27/2025 CBC (INCL UDES DIFF/ PLT) lymphocytes 20.6 % normal Not Available [facility] [address], [address], 02/27/2025 22:28:51 02/27/20 25 02/27/2025 CBC (INCL UDES DIFF/ PLT) monocytes 5.4 % normal Not Available [address], [address], 02/27/2025 22:28:51 02/27/20 25 02/27/2025 CBC (INCL UDES DIFF/ PLT) eosinophils 1.7 % normal Not Available [facility] [address] [place], [address], 02/27/2025 22:28:51 02/27/20 25 02/27/2025 CBC (INCL UDES DIFF/ PLT) basophils 0.3 % normal Not Available [address] [place], [address], 02/27/2025 22:28:51 02/27/20 25 02/27/2025 HEPAT ITIS B SURFA CE ANTIG EN W/REF L CONFI RM hepatitis B surface antigen NON-RE ACTIVE non-re active normal For addit ional infor mattodd n, pleas e refer to http: //[facility] kannapolistodd n.que stdia gnost ics.c om/fa q/FAQ 202 (This link is being provi ded for infor matio nal/ educa jhonathan l purpo ses only. ) Not Available [facility] [address], [address], 02/27/2025 22:28:52 02/27/20 25 02/27/2025 HEPAT ITIS [...] a test for HCV RNA (test code 56191 ) is sugge sted. For addit ional infor matio n pleas e refer to http: //[facility] kannapolistodd n.que stdia gnost ics.c om/fa q/FAQ 22v1 (This link is being provi ded for infor matio nal/ educa jhonathan l purpo ses only. ) Not Available [address] [address] [place], [address], 02/27/2025 22:28:53 02/27/20 25 02/27/2025 RUBEL LA [...] with rubel la virus . Not Available [employer] [facility] [address] [place] [address], [address], 02/27/2025 22:28:53 02/27/20 25 02/27/2025 HIV 1/2 [...] matio n pleas e refer to http: //[facility] hayley godfrey stdia gnost ics.c om/fa q/FAQ 106 (This link is being provi ded for infor matio nal/ educa jhonathan l purpo ses only. ) The perfo rmanc e of this assay has not been clini solomon valid ated in patie nts less than 2 years old. Not Available [employer] [facility] [place], [address], 02/27/2025 22:28:54 02/27/20 25 02/27/2025 RPR (DX) W/REF L TITER AND T. PALLI DUM AB, IA RPR (DX) w/refl titer and confirmatory testing NON-RE ACTIVE non-re active normal No labor atory evide nce of syphi lis. If recen t expos ure is suspe cted, submi t a new sampl e in 2-4 weeks . Not Available [address], [address], 02/27/2025 22:28:55 02/27/20 25 02/27/2025 ANTIB MAICOL [...] alloi mmuni zed pregn benjamin. Not Available [address], [address], 02/27/2025 22:28:56 02/27/20 25 02/27/2025 ABO GROUP AND RH TYPE ABO group O Not Available [address], [address], 02/27/2025 22:28:57 02/27/20 25 02/27/2025 ABO GROUP AND RH TYPE Rh type RH(D) POSITI VE For addit ional infor sabrina roth refer to http: //divina Godfrey stDia gnost ics.c om/fa q/FAQ 111 (This link is being provi ded for infor amy trujillo/ educcatracho ring l purpo ses only. ) Not Available [address], [address], 02/27/2025 22:28:57 02/27/20 25 02/27/2025 DRUG MONIT OR, PANEL 1, SCREE N, URINE amphetamines NEGATI VE NG/mL <500 See Note A See Note A Not Available [facility] [address] [address] [address], [place], [address], 02/27/2025 22:28:58 02/27/20 25 02/27/2025 DRUG MONIT OR, PANEL 1, SCREE N, URINE barbiturates NEGATI VE NG/mL <300 See Note A See Note A Not Available [facility] [address] [address] [address], [place], [address], 02/27/2025 22:28:58 02/27/20 25 02/27/2025 DRUG MONIT OR, PANEL 1, SCREE N, URINE benzodiazepi duane NEGATI VE NG/mL <100 See Note A See Note A Not Available [facility] [address] [address] [address], [place], [address], 02/27/2025 22:28:58 02/27/20 25 02/27/2025 DRUG MONIT OR, PANEL 1, SCREE N, URINE cocaine metabolite NEGATI VE NG/mL <150 See Note A See Note A Not Available [facility] [address] [address] [address], [place], [address], 02/27/2025 22:28:58 02/27/20 25 02/27/2025 DRUG MONIT OR, PANEL 1, SCREE N, URINE marijuana metabolite NEGATI VE NG/mL <20 See Note A See Note A Not Available [facility] [address] [address] [address], [place], [address], 02/27/2025 22:28:58 02/27/20 25 02/27/2025 DRUG MONIT OR, PANEL 1, SCREE N, URINE methadone metabolite NEGATI VE NG/mL <100 See Note A See Note A Not Available [facility] [address] [address] [address], [place], [address], 02/27/2025 22:28:58 02/27/20 25 02/27/2025 DRUG MONIT OR, PANEL 1, SCREE N, URINE opiates NEGATI VE NG/mL <100 See Note A See Note A Not Available [address] [address], [place], [address], 02/27/2025 22:28:58 02/27/20 25 02/27/2025 DRUG MONIT OR, PANEL 1, SCREE N, URINE oxycodone NEGATI VE NG/mL <100 See Note A See Note A Not Available [address] [address], [place], [address], 02/27/2025 22:28:58 02/27/20 25 02/27/2025 DRUG MONIT OR, PANEL 1, SCREE N, URINE phencyclidin e NEGATI VE NG/mL <25 See Note A See Note A Not Available [address] [address], [place], [address], 02/27/2025 22:28:58 02/27/20 25 02/27/2025 DRUG MONIT OR, PANEL 1, SCREE N, URINE creatinine 108.1 mg/dL > or = 20.0 Not Available [address] [address], [place], [address], 02/27/2025 22:28:58 02/27/20 25 02/27/2025 DRUG MONIT OR, PANEL 1, SCREE N, URINE pH 7.7 4.5-9. 0 Not Available [address] [address], [place], [address], 02/27/2025 22:28:58 02/27/20 25 02/27/2025 DRUG MONIT OR, PANEL 1, SCREE N, URINE oxidant NEGATI VE mcg/m L <200 Not Available [address] [address], [place], [address], 02/27/2025 22:28:58 02/27/20 25 02/27/2025 DRUG MONIT [...] M-F, 8am to 10pm EST Not Available [address] [address] [place], [address], 02/27/2025 22:28:59 02/27/2002/27/2025 CULTU RE, URINE , ROUTI NE culture, urine, routine SEE NOTE CULTU RE, URINE , ROUTI NE Micro Numbe r: [id number] Test Statu s: Final Speci men Sourc e: Urine Speci men Quali ty: Adequ ate Resul t: No Growt h Not Available [address] [address] [place], [address], 02/27/2025 22:28:59 02/27/20 25 03/08/2025 THINP REP TIS PAP (REFL ) HPV MRNA E6/E7 clinical information: normal Pregn ant Not Available [facility] [address] [address] [place], [address], 03/08/2025 08:16:51 02/27/20 25 03/08/2025 THINP REP TIS PAP (REFL ) HPV MRNA E6/E7 LMP: normal NONE GIVEN Not Available [facility] [address] [address] [place], [address], 03/08/2025 08:16:51 02/27/20 25 03/08/2025 THINP REP TIS PAP (REFL ) HPV MRNA E6/E7 prev. Pap: normal NONE GIVEN Not Available [address], [address], 03/08/2025 08:16:51 02/27/20 25 03/08/2025 THINP REP TIS PAP (REFL ) HPV MRNA E6/E7 prev. BX: normal NONE GIVEN Not Available [address] [place], [address], 03/08/2025 08:16:51 02/27/20 25 03/08/2025 THINP REP TIS PAP (REFL ) HPV MRNA E6/E7 source: normal Cervi x, Endoc ervix Not Available [address] [place], [address], 03/08/2025 08:16:51 02/27/2003/08/2025 THINP REP TIS PAP (REFL ) HPV MRNA E6/E7 statement of adequacy: normal Satis facto ry for evalu ation . Endoc ervic al/tr ansfo rmati on zone compo nent prese nt. Not Available [address], [address], 03/08/2025 08:16:51 02/27/2003/08/2025 THINP REP TIS PAP (REFL ) HPV MRNA E6/E7 general categorizati on: abnormal Cytol ogy Resul ts: Epith elial Cell Abnor malit y Not Available [address] [place], [address], 03/08/2025 08:16:51 02/27/2003/08/2025 THINP REP TIS PAP (REFL ) HPV MRNA E6/E7 interpretati on/result: abnormal Low Grade Squam ous Intra epith elial Lesio n (LSIL ) Not Available [address] [place], [address], 03/08/2025 08:16:51 02/27/20 25 03/08/2025 THINP REP TIS PAP (REFL ) HPV MRNA E6/E7 comment: normal This Pap test has been evalu ated with [employer] . Sugge st clini rajiv corre latio n and follo w-up as clini solomon appro priat e Not Available [address] [address] [place], [address], 03/08/2025 08:16:51 02/27/20 25 03/08/2025 THINP REP TIS PAP (REFL ) HPV MRNA E6/E7 cytotechnolo gist: normal KMS, CT( CP) CT Scree pat locat ion: [address] [address] [place] [address] Not Available [address] [address] [place], [address], 03/08/2025 08:16:51 02/27/20 25 03/08/2025 THINP REP TIS PAP (REFL ) HPV MRNA E6/E7 pathologist: normal Alisha monique M.D., Board Certi fied in [place] Patho logy and Cytop athol ogy. Phone : [phone] (elec troni c signa josé) Patho logis t Relea se Date/ Time: 03/06 09:25 AM Not Available [address] [address] [place], [address], 03/08/2025 08:16:51 02/27/20 25 03/08/2025 THINP REP [...] clini rajiv infor amy raphael. Not Available [facility] [address] [place], [address], 03/08/2025 08:16:51 02/27/20 25 03/08/2025 HPV MRNA [...] infor sabrina roth e refer to http: //[facility] hayley raphael.patience stdia gnost ics.c om/fa q/FAQ 129v1 (This link if provi ded for infor amy raphael/ educcatracho ring l purpo ses only. ) Not Available [facility] [address] [place], [address], 03/08/2025 08:16:53 02/27/20 25 02/26/2025 CT + NG + TV, DNA, urine /swab Chlamydia negati ve Not Available [facility] ([facility]) [address] [place], [address], 02/25/2025 18:55:26 02/27/20 25 02/26/2025 CT + NG + TV, DNA, urine /swab Gonorrhea negati ve Not Available [facility] ([facility]) [address] [place], [address], 02/25/2025 18:55:26 02/27/2002/26/2025 CT + NG + TV, DNA, urine /swab Trichomonas negati ve Not Available [facility] ([facility]) [address] [place], [address], 02/25/2025 18:55:26 07/02/20 25 07/02/2025 CBC WBC 11.1 x10 4.0-10 .5 high Not Available [facility] [address] [facility] Nuria [facility] 1, [place], [address], 07/02/2025 10:24:57 07/02/20 25 07/02/2025 CBC RBC 3.96 x10 3.50-5 .50 Not Available [facility] [address] [facility] 1, [place], [address], 07/02/2025 10:24:57 07/02/20 25 07/02/2025 CBC HGB 12.0 g/dL 12.0-1 6.0 Not Available [facility] [address] [facility] 1, [place], [address], 07/02/2025 10:24:57 07/02/20 25 07/02/2025 CBC HCT 37.1 % 37.0-4 7.0 Not Available [facility] [address] [facility] [address], [place], [address], 07/02/2025 10:24:57 07/02/20 25 07/02/2025 CBC MCV 93.8 fL 80.0-9 9.9 Not Available [facility] [address] [facility] Nuria [facility] 1, [place], [address], 07/02/2025 10:24:57 07/02/20 25 07/02/2025 CBC MCH 30.4 pg 27.0-3 2.0 Not Available [facility] [address] [facility] N[address] [facility] [address], [place], [address], 07/02/2025 10:24:57 07/02/20 25 07/02/2025 CBC MCHC 32.4 g/dL 32.0-3 6.0 Not Available [facility] [address] [facility] [address], [place], [address], 07/02/2025 10:24:57 07/02/20 25 07/02/2025 CBC RDW 12.9 % 11.5-1 4.5 Not Available [facility] [address] [facility] 1, [place], [address], 07/02/2025 10:24:57 07/02/20 25 07/02/2025 CBC plt 227.7 x10 140.0- 451.0 Not Available [facility] [address] [facility] 1, [place], [address], 07/02/2025 10:24:57 07/02/20 25 07/02/2025 CBC lymphocytes % 15.5 % 20.0-5 0.0 low Not Available [facility] [address] [facility] 1, [place], [address], 07/02/2025 10:24:57 07/02/20 25 07/02/2025 CBC granulcytes % 78.3 % 30.0-7 0.0 high Not Available [facility] [address] [facility] 1, [place], [address], 07/02/2025 10:24:57 07/02/20 25 07/02/2025 CBC monocytes % 4.2 % 2.0-16 .0 Not Available [facility] [address] [facility] 1, [place], [address], 07/02/2025 10:24:57 07/02/20 25 07/02/2025 CBC granulcytes# 8.7 x10 Not Jenny ilable [facility] [address], [place], [address], 07/02/2025 10:24:57 07/02/20 25 07/02/2025 CBC lymphocytes # 1.7 x10 Not Available [facility] [address] [facility] 1, [place], [address], 07/02/2025 10:24:57 07/02/20 25 07/02/2025 CBC monocytes # 0.5 x10 Not Avai lable [facility] [address] [facility] 1, [place], [address], 07/02/2025 10:24:57 07/02/20 25 07/02/2025 GLUCO SE SCREE N glucose screen 135.0 mg/dL Not Available [facility] [address] [facility] 1, [place], [address], 07/02/2025 10:30:30 07/11/20 25 07/11/2025 GLUCO SE SCREE N glucose screen 133.0 mg/dL Not Available [facility] [address] [facility] 1, [place], [address], 07/11/2025 10:37:03 02/19/20 25 02/12/2025 US, obste tric, 1st trime ster No observ ation record ed. Not Available 02/19 09:09:34 04/25/20 25 04/18/2025 US, obste tric, follo w-up No observ ation record ed. [email or web address] [facility] [address] [place], [address], 04/29/2025 09:24:34 05/11/20 25 05/07/2025 US, obste tric, 2nd trime ster No observ ation record ed. [facility] [address] [place], [address], 05/13/2025 17:57:21 07/05/20 25 07/02/2025 imagi ng/di agnos tic resul t No observ ation record ed. [facility] [address] [place], [address], 07/09/2025 10:35:54 Result Notes None recorded. Problems Name Problem SNOMED Code Status Onset Date Resolution Date Notes Provider Name and Address Organization Details Recorded Time Rheumatoid arthritis 80979617 Active 2022 KERWIN roper [facility]CRemigio 5 14:16:25 Pain of knee region 4941032735 Completed 202301/24/2025 KERWIN roper [facility] 5 14:16:23 Family history of diabetes mellitus 997743180 Active 2023 KERWIN roper [facility] 5 14:16:18 Normal 70081181 Active 2024 ROXI NEULORENWAHailey PLUMMER null, [facility] 5 10:22:35 Normal 70304821 Active 2024 ROXI LANDISWAHailey PLUMMER null [facility] 5 10:22:35 Placenta previa partialis 72373318 Active 2024 Alvaro Angelo MD [address] [place], [address], [facility] 5 02:46:26 Low-lying placenta 332879243 Active 2024 Alvaro Angelo MD [address] [place], [address], [facility] 5 11:36:47 Problem Notes None recorded. Procedures Surgical History Date Name Laterality Status Provider Name and Address Organization Details Recorded Time 02/27/20 25 Date of Last Pap Smear completed [facility] [place] 09/02/2025 18:39:21 02/27/20 25 liquid based cervical cytology screening completed [facility] [place] 09/02/2025 18:39:54 01/31/20 24 colposcopy completed [facility], VikiLRemigioCRemigio 01/24/2025 14:17:49 01/31/20 24 hysteroscopy completed [facility], SaschaCRemigio 01/24/2025 14:18:46 arthroscopy of left knee joint completed [facility] [place] 01/24/2025 14:17:01 cholecystectomy completed [facility], LRemigioLRemigioCRemigio 01/24/2025 14:17:33 Imaging Results None recorded. Procedure Notes None recorded. Medical Equipment None Reported. Allergies Allergen ID Allergen Name Allergen Category Reaction Reaction Severity Criticality Documentation Date Start Date Code Code System Note Provider Name and Address Organization Details Recorded Time 31371 Bactrim medicatio n hives moderate Not available 05/21/2023 60892 9 RxNorm [facility]NET[facility]BA [facility]ED [facility] L[facility]LRem[facility]ioCRemigio 5 15:30:03 08204 Product containin g penicilli n (product) medicatio n hives moderate Not available 05/21/2023 61320 8001 SNOMED ROXI SHEARER [facility], VikiLRemigioCRemigio 5 15:30:03 47716 Augmentin medicatio n hives moderate Not available 01/24/2025 39047 2 RxNorm [facility], LRemigioLRemigioCRemigio 5 14:19:18 28654 Celebrex medicatio n other moderate Not available 01/24/2025 70103 7 RxNorm TREBA NEUSCHWAN KAVITHA [facility] 5 15:30:03 25650 Substance with sulfonami de structure and antibacte rial mechanism of action (substanc e) medicatio n hives moderate Not available 04/18/2025 28388 8003 SNOMED TREBA NEUSCHWAN KAVITHA [facility] 5 15:30:03 80138 amoxicill in / clavulana te medicatio n hives Not available [facility] 09/06/20252022 97261 RxNorm Yessy ates PCN and amoxi cilli n fine Not Available [employer] - prod 5 07:58:34 88081 celecoxib medicatio n Not available Not available [facility] 09/06/20252022 46901 7 RxNorm Not Available [employer] - prod 5 07:58:34 Medications [...] (BMI) Body weight Oxygen saturation Heart rate Respiratory rate Body temperature Systolic And Diastolic Provider Name and Address Organization Details Last Updated DateTime 5 170.18 cm 36.4 kg/m2 476223. 13 g 98 % 75 /min 18 /min 98.7 [degF] 122/64 mm[Hg] ROXI PLUMMER [facility] 5 11:11:55 Social History Question Answer Notes LastModified by Organizat ion Details LastModified Time Tobacco Smoking Status Former Smoker ANTONIO roper [facility] 01/24/2023 10:09:31 Are You Blind Or Do You Have Difficulty Seeing? No Information not available 01/24/2025 Are You Deaf Or Do You Have Serious Difficulty Hearing? No Information not available 01/24/2023 When Did You Quit Smoking? 1-5yearssinc elastcigaret te [id number] Information not available 01/24/2023 Do You Work In Healthcare? No Information not available 01/24/2025 What Was The Date Of Your Most Recent Tobacco Screening? 03/26/2025 [email or web address] Information not available 03/26/2025 What Is Your Relationship Status? Information not available 01/24/2025 Have You Recently Traveled Abroad? No [email or web address] Information not available 01/24/2023 Do You Have Difficulty Walking Or Climbing Stairs? No Information not available 01/24/2023 Sex: Unknown Functional [...] independently without assistance or assistive devices? YESWOREST [email or web address] Information not available 01/24/2023 Do you have difficulty doing errands alone? No [email or web address] Information not available 01/24/2023 Are you able to care for yourself independently? 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 No [email or web address] Information not available 01/24/2023 Do you or have you ever used e-cigarettes or vape? Former user of electronic cigarettes Information not available 01/24/2025 Mental Status Question Answer Note LastModified by Organization D etails LastModified Time Do you have difficulty concentrating, remembering or making decisions? No Information no t available 01/24/2023 Family History Relationship Description Onset Age of this Age Resolved Age Notes LastModified by Organization Details LastModified Time Father Diabetes mellitus [email or web address] Not available 2023 09:43:45 Paternal Grandmother Malignant [...] Address Organization Details Recorded Time IPV 09/28/2000 kaushal roper [facility] [place] 10/09/2024 09:35:10 MMR 04/11/1996 completed Susan roper [facility] [place] 10/09/2024 09:35:10 MMR 09/28/2000 completed Susan roper [facility] [place] 10/09/2024 09:35:10 Tdap 11/17/2010 kaushal roper [facility] [place] 10/09/2024 09:35:10 Tdap 02/20/2015 kaushal roper [facility] [place] 10/09/2024 09:35:10 Hep B, unspecified formulation 1995 completed Susan Wilson null, [facility] 10/09/2024 09:35:10 Hep B, unspecified formulation 02/28/1996 completed Susan Wilson null, [facility] 10/09/2024 09:35:10 Hep B, unspecified formulation 1995 completed Susan Wilson null, [facility] 10/09/2024 09:35:10 OPV, trivalent 1995 completed Susan Wilson null, [facility] 10/09/2024 09:35:10 OPV, trivalent 02/28/1996 completed Susan Wilson null, [facility] 10/09/2024 09:35:10 OPV, trivalent 1995 completed Susan Wilson null, [facility] 10/09/2024 09:35:10 DTP-Hib 11/29/1996 completed Susan Wilson null, [facility] 10/09/2024 09:35:10 DTP-Hib 1995 completed Susan Wilson null, [facility] 10/09/2024 09:35:10 DTP-Hib 02/28/1996 completed Susan Wilson null, [facility] 10/09/2024 09:35:10 DTP-Hib 1995 completed Susan Wilson null, [facility] 10/09/2024 09:35:10 DTaP 09/28/2000 completed Susan Wilson null, [facility] 10/09/2024 09:35:10 Past Encounters Encounter ID Performer Location Encounter Start Date Encounter Closed Date Diagnosis/Indication Diagnosis SNOMED-CT Code Diagnosis ICD10 Code Diagnosis IMO Codes Diagnosis Note [id number] Alvaro Angelo MD [facility] [place] ([facility]) [address] [place] [phone] 06/18/2025 11:21:56 06/18/2025 12:15:35 Normal 05815962 Z34.81 Gestation period, 26 weeks 45680070 Z3A.26 [id number] Alvaro Angelo MD [facility] [place] ([facility]) [address] [place] [address] 07/02/2025 08:58:15 07/03/2025 12:00:14 [id number] Alvaro Angelo MD [facility] [place] ([facility]) [address] [place] [phone] 07/02/2025 08:58:47 07/04/2025 04:05:41 [id number] Alvaro Angelo MD [facility]) [address] [place] [phone] 07/02/2025 10:39:30 07/02/2025 11:45:25 Normal 39457243 Z34.83 21104709 Gestation period, 28 weeks 58078042 Z3A.28 [id number] Alvaro Angelo MD [facility] [place] ([facility]) [address] [place] [phone] 07/16/2025 10:32:08 07/16/2025 11:40:01 Multigravida 368810122 Z34.83 60661308 Gestation period, 30 weeks 37746085 Z3A.30 [id number] Health Concerns Section Related Observation LastModified by Organization Detai ls LastModified Time None Recorded Concern Status LastModified by Organization Details LastModified Time None Recorded Payers Encounter Date Sequence Insurance Name Policy Number Policy Fierro Covered Member ID Fierro Member ID Guarantor Name 07/16/2025 1 [employer] (PPO) [id number] 3 Jeffy Zimmerman [id number] Jeffy Zimmerman Notes Date Note Type Note Provider Name and Address Organization Details Recorded Time 07/16/2025 text/html jr ob routineRep orted by PatientHPIFor associated symptoms, patient reportsnausea,emesis, andconstipationbut reportsno abdominal pain,no cramping,no contractions,normal movement,no bleeding,no vaginal discharge,no vaginal/vulvar itching or irritation,no dysuria,no frequency,no urgency,no hematuria,no fever,no diarrhea/loose stool,no edema,no visual changes,no headache,no dizziness, andno breathlessness.heartbur n/ acid reflux with meals,Denies any tobacco, nicotine, alcohol, or drug useROS as noted in the HPI Alvaro Angelo MD [address] [place] [address], [id number], [facility] 07/16/2025 11:39:58 OBGyn Episode Ob Episode Information Episode Created Date Number of Fetuses Patient Bloodtype Patient rh Status Prepregnancy Weight lbs Domestic Partner Domestic Partner Phone Father Name 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 Status 01/25/20 25 1 O Positive Damián [...] Resolution Snomed Code Not e Normal 02/25/2025 [id number] Merrill Calculation Initial Merrill Date Initial Exam [...] Days Gestation 0 02/14/2025 09/24/20 25 0 Pre-antoinette Flowsheet Flowsheet Date 01/24/2025 Sierra Score Blood Edema Fundus Height Fundus Units Glucose Ketones Leukocytes Nitrite Labor Signs Protein Cervic Dilation Cervic Effacement Cervic Station Type Weight in lbs Pre/Post Dialysis Refused Weight 227.050490659843 BP Diastolic BP Location Tested BP Systolic [...] Weight in lbs Pre/Post Dialysis Refused Weight 221.446134274160 BP Diastolic BP Location Tested BP Systolic [...] Weight in lbs Pre/Post Dialysis Refused Weight 221.846176902996 BP Diastolic BP Location Tested BP Systolic [...] Weight in lbs Pre/Post Dialysis Refused Weight 225.470716845279 BP Diastolic BP Location Tested BP Systolic [...] Weight in lbs Pre/Post Dialysis Refused Weight 230.144299298739 BP Diastolic BP Location Tested BP Systolic BP Type 62 L arm 106 Fetus Heart Rate Present A 148 Present Fetus Movement A Yes Comments heartburn Flowsheet Date 06/18/2025 Sierra Score Blood Edema Fundus Height Fundus Units Glucose Ketones Leukocytes Nitrite Labor Signs Protein Cervic Dilation Cervic Effacement Cervic Station Type Weight in lbs Pre/Post Dialysis Refused Weight 229.2512805324 BP Diastolic BP Location Tested BP Systolic [...] Weight in lbs Pre/Post Dialysis Refused Weight 234.049890245482 BP Diastolic BP Location Tested BP Systolic [...] Weight in lbs Pre/Post Dialysis Refused Weight 232.747466591915 BP Diastolic BP Location Tested BP Systolic [...] Weight in lbs Pre/Post Dialysis Refused Weight 236.733226700651 BP Diastolic BP Location Tested BP Systolic BP Type 76 120 Fetus Heart Rate Present A 144 Present Fetus Movement A Yes Comments mild swelling, heartburn int ermittent Flowsheet Date 08/13/2025 Sierra Score Blood Edema Fundus Height Fundus Units Glucose Ketones Leukocytes Nitrite Labor Signs Protein Cervic Dilation Cervic Effacement Cervic Station 34 cm none trace Casey [place] neg Type Weight in lbs Pre/Post Dialysis Refused Weight 239.843124697384 BP Diastolic BP Location Tested BP Systolic [...] Weight in lbs Pre/Post Dialysis Refused Weight 241.101477194903 BP Diastolic BP Location Tested BP Systolic [...] Cervic Effacement Cervic Station none none Negative Casey [place] neg 2cm 70% -3 Type Weight in lbs Pre/Post Dialysis Refused Weight 241.087697154870 BP Diastolic BP Location Tested BP Systolic [...] Weight in lbs Pre/Post Dialysis Refused Weight 243.219197178200 BP Diastolic BP Location Tested BP Systolic BP Type 70 120 Fetus Heart Rate Present Fetus Movement Comments Flowsheet Date 09/10/2025 Sierra Score Blood Edema Fundus Height Fundus Units Glucose Ketones Leukocytes Nitrite Labor Signs Protein Cervic Dilation Cervic Effacement Cervic Station none trace Negative Casey [place] neg 2cm 70% -3 Type Weight in lbs Pre/Post Dialysis Refused Weight 243.656929526242 BP Diastolic BP Location Tested BP Systolic [...] Weight in lbs Pre/Post Dialysis Refused Weight 242.166068354699 BP Diastolic BP Location Tested BP Systolic BP Type 70 122 Fetus Heart Rate Present A 164 Present Fetus Movement A Yes Comments low back pain, vaginal press ure, swelling in hands/feet Flowsheet Date 09/24/2025 Sierra Score Blood Edema Fundus Height Fundus Units Glucose Ketones Leukocytes Nitrite Labor Signs Protein Cervic Dilation Cervic Effacement Cervic Station none 1+ Negative Casey [place] trace 3cm 70% -4 Type Weight in lbs Pre/Post Dialysis Refused Weight 244.724932178727 BP Diastolic BP Location Tested BP Systolic [...] Weight in lbs Pre/Post Dialysis Refused Weight 248.431693462623 BP Diastolic BP Location Tested BP Systolic [...] Estim ated Date of Delivery false Thalassemia (Khmer, Angolan, Mediterranean, Or Background): MCV < 80 false Neural Tube Defect (Meningomyelocele, Spina Bifi da, Or Anencephaly) false Congenital Heart Defect false Down Syndrome false Maco-Sachs (eg, Presybeterian, Cajun, Mongolian-[place]atom[place]) f alse Dustin Disease false Sickle Cell Disease Or Trait () false Hemophilia Or Other Blood Disorders false Muscular Dystrophy false Cystic Fibrosis false Bigelow's Chorea false Intellectual Disability/Autism false If Yes, [...]
--- OUTSIDE RECORDS SUMMARY | 2025-09-25 15:05 | XMS_ITS | Continuity of Care Document ---
Author Organization [facility] Fabio Myers [facility] [place], [place] [facility] ([facility]) Address [address] [place] [address] Assessment Encounter Date Assessment Date Assessment LastModified by Organization Details LastModified Time 09/24/2025 09/24/2025 Induction set for Tuesday night. [email or web address] Not available 09/24/2025 11:30:20 Plan of Treatment Reminders Order Date Submit [...] ETE color YELLOW yellow normal Not Available [address], [address], 02/27/2025 22:28:50 02/27/20 25 02/27/2025 URINA LYSIS , COMPL ETE appearance CLEAR clear normal Not Available [address], [address], 02/27/2025 22:28:50 02/27/20 25 02/27/2025 URINA LYSIS , COMPL ETE specific gravity 1.012 1.001- 1.035 normal Not Available [address], [address], 02/27/2025 22:28:50 02/27/20 25 02/27/2025 URINA LYSIS , COMPL ETE pH 7.5 5.0-8. 0 normal Not Available [address], [address], 02/27/2025 22:28:50 02/27/20 25 02/27/2025 URINA LYSIS , COMPL ETE glucose NEGATI VE negati ve normal Not Available [address], [address], 02/27/2025 22:28:50 02/27/20 25 02/27/2025 URINA LYSIS , COMPL ETE bilirubin NEGATI VE negati ve normal Not Available [address], [address], 02/27/2025 22:28:50 02/27/20 25 02/27/2025 URINA LYSIS , COMPL ETE ketones NEGATI VE negati ve normal Not Available [address], [address], 02/27/2025 22:28:50 02/27/20 25 02/27/2025 URINA LYSIS , COMPL ETE occult blood NEGATI VE negati ve normal Not Available [address], [address], 02/27/2025 22:28:50 02/27/20 25 02/27/2025 URINA LYSIS , COMPL ETE protein NEGATI VE negati ve normal Not Available [address], [address], 02/27/2025 22:28:50 02/27/20 25 02/27/2025 URINA LYSIS , COMPL ETE nitrite NEGATI VE negati ve normal Not Available [address], [address], 02/27/2025 22:28:50 02/27/20 25 02/27/2025 URINA LYSIS , COMPL ETE leukocyte esterase TRACE negati ve abnormal Not Available [address], [address], 02/27/2025 22:28:50 02/27/20 25 02/27/2025 URINA LYSIS , COMPL ETE WBC NONE SEEN /hpf < or = 5 normal Not Available [address], [address], 02/27/2025 22:28:50 02/27/20 25 02/27/2025 URINA LYSIS , COMPL ETE RBC NONE SEEN /hpf < or = 2 normal Not Available [address], [address], 02/27/2025 22:28:50 02/27/20 25 02/27/2025 URINA LYSIS , COMPL ETE squamous epithelial cells 6-10 /hpf < or = 5 abnormal Not Available [address], [address], 02/27/2025 22:28:50 02/27/20 25 02/27/2025 URINA LYSIS , COMPL ETE bacteria NONE SEEN /hpf none seen normal Not Available [address], [address], 02/27/2025 22:28:50 02/27/20 25 02/27/2025 URINA LYSIS , COMPL ETE hyaline cast NONE SEEN /lpf none seen normal Not Available [address], [address], 02/27/2025 22:28:50 02/27/20 25 02/27/2025 URINA LYSIS , COMPL ETE note This urine was jim zed for the prese nce of WBC, RBC, bacte terry, casts , and other forme d eleme nts. Only those eleme nts seen were repor bruce. Not Available [address], [address], 02/27/2025 22:28:50 02/27/20 25 02/27/2025 CBC (INCL UDES DIFF/ PLT) white blood cell count 8.9 thous and/u L 3.8-10 .8 normal Not Available [address], [address], 02/27/2025 22:28:51 02/27/20 25 02/27/2025 CBC (INCL UDES DIFF/ PLT) red blood cell count 4.42 erick on/uL 3.80-5 .10 normal Not Available [address], [address], 02/27/2025 22:28:51 02/27/20 25 02/27/2025 CBC (INCL UDES DIFF/ PLT) hemoglobin 13.2 g/dL 11.7-1 5.5 normal Not Available [facility] [address], [address], 02/27/2025 22:28:51 02/27/20 25 02/27/2025 CBC (INCL UDES DIFF/ PLT) hematocrit 41.4 % 35.0-4 5.0 normal Not Available [facility] [address], [address], 02/27/2025 22:28:51 02/27/20 25 02/27/2025 CBC (INCL UDES DIFF/ PLT) MCV 93.7 fL 80.0-1 00.0 normal Not Available [facility] [address], [address], 02/27/2025 22:28:51 02/27/20 25 02/27/2025 CBC (INCL UDES DIFF/ PLT) MCH 29.9 pg 27.0-3 3.0 normal Not Available [facility] [address] [place], [address], 02/27/2025 22:28:51 02/27/2002/27/2025 CBC (INCL UDES DIFF/ PLT) MCHC 31.9 g/dL 32.0-3 6.0 low For adult s, a sligh t decre ase in the calcu lated MCHC value (in the range of 30 to 32 g/dL) is most likel y not clini solomon signi ray t; eliana er, it shoul d be inter prete d with cauti on in [facility] n with other red cell mariana eters and the patie nt's clini rajiv condi tion. Not Available [facility] [address], [address], 02/27/2025 22:28:51 02/27/20 25 02/27/2025 CBC (INCL UDES DIFF/ PLT) RDW 12.5 % 11.0-1 5.0 normal Not Available [facility] [address], [address], 02/27/2025 22:28:51 02/27/20 25 02/27/2025 CBC (INCL UDES DIFF/ PLT) platelet count 294 thous and/u L 140-40 0 normal Not Available [facility] [address], [address], 02/27/2025 22:28:51 02/27/20 25 02/27/2025 CBC (INCL UDES DIFF/ PLT) MPV 11.6 fL 7.5-12 .5 normal Not Available [facility] [address], [address], 02/27/2025 22:28:51 02/27/20 25 02/27/2025 CBC (INCL UDES DIFF/ PLT) absolute neutrophils 6408 cells /uL 1500-7 800 normal Not Available [facility] [address], [address], 02/27/2025 22:28:51 02/27/20 25 02/27/2025 CBC (INCL UDES DIFF/ PLT) absolute lymphocytes 1833 cells /uL 850-39 00 normal Not Available [address], [address], 02/27/2025 22:28:51 02/27/20 25 02/27/2025 CBC (INCL UDES DIFF/ PLT) absolute monocytes 481 cells /uL 200-95 0 normal Not Available [facility] [address], [address], 02/27/2025 22:28:51 02/27/20 25 02/27/2025 CBC (INCL UDES DIFF/ PLT) absolute eosinophils 151 cells /uL 15-500 normal Not Available [facility] [address], [address], 02/27/2025 22:28:51 02/27/20 25 02/27/2025 CBC (INCL UDES DIFF/ PLT) absolute basophils 27 cells /uL 0-200 normal Not Available [facility] [address], [address], 02/27/2025 22:28:51 02/27/20 25 02/27/2025 CBC (INCL UDES DIFF/ PLT) neutrophils 72 % normal Not Available [address], [address], 02/27/2025 22:28:51 02/27/20 25 02/27/2025 CBC (INCL UDES DIFF/ PLT) lymphocytes 20.6 % normal Not Available [facility] [address], [address], 02/27/2025 22:28:51 02/27/20 25 02/27/2025 CBC (INCL UDES DIFF/ PLT) monocytes 5.4 % normal Not Available [facility] [address], [address], 02/27/2025 22:28:51 02/27/20 25 02/27/2025 CBC (INCL UDES DIFF/ PLT) eosinophils 1.7 % normal Not Available [address], [address], 02/27/2025 22:28:51 02/27/20 25 02/27/2025 CBC (INCL UDES DIFF/ PLT) basophils 0.3 % normal Not Available [address], [address], 02/27/2025 22:28:51 02/27/20 25 02/27/2025 HEPAT ITIS B SURFA CE ANTIG EN W/REF L CONFI RM hepatitis B surface antigen NON-RE ACTIVE non-re active normal For addit ional infor amy raphael, sabrina e refer to http: //[facility].que stdia gnost ics.c om/fa q/FAQ 202 (This link is being provi ded for infor matio nal/ educa jhonathan l purpo ses only. ) Not Available [address], [address], 02/27/2025 22:28:52 02/27/2002/27/2025 HEPAT ITIS C AB W/REF L TO [...] a test for HCV RNA (test code 57180 ) is sugge sted. For addit ional infor mattodd n pleas e refer to http: //[facility].que stdia gnost ics.c om/fa q/FAQ 22v1 (This link is being provi ded for infor matio nal/ educa jhonathan l purpo ses only. ) Not Available [address], [address], 02/27/2025 22:28:53 02/27/20 25 02/27/2025 RUBEL LA [...] with rubel la virus . Not Available [facility] [address], [place], [address], 02/27/2025 22:28:53 02/27/20 25 02/27/2025 HIV 1/2 [...] state law prohi bits you from [place] any furth er discl osure of the infor matio n witho ut the speci fic writt en conse nt of the perso n to whom it perta ins, or as other casiano permi tted by law. A gener al autho rinanettet ion for the relea se of medic al or other infor matio n is NOT suffi cient for this purpo se. For addit ional infor matio n pleas e refer to http: //[facility] hayley raphael.que stdia gnost ics.c om/fa q/FAQ 106 (This link is being provi ded for infor matio nal/ educa jhonathan l purpo ses only. ) The perfo rmanc e of this assay has not been clini solomon valid ated in patie nts less than 2 years old. Not Available [facility] [address] [place], [address], 02/27/2025 22:28:54 02/27/20 25 02/27/2025 RPR (DX) W/REF L TITER AND T. PALLI DUM AB, IA RPR (DX) w/refl titer and confirmatory testing NON-RE ACTIVE non-re active normal No labor atory evide nce of syphi lis. If recen t expos ure is suspe cted, submi t a new sampl e in 2-4 weeks . Not Available [facility] [address] [place], [address], 02/27/2025 22:28:55 02/27/20 25 02/27/2025 ANTIB EFREN [...] alloi mmuni zed pregn benjamin. Not Available [facility] [address] , [place], [address], 02/27/2025 22:28:56 02/27/20 25 02/27/2025 ABO GROUP AND RH TYPE ABO group O Not Available [facility] [address] [address] [place], [address], 02/27/2025 22:28:57 02/27/20 25 02/27/2025 ABO GROUP AND RH TYPE Rh type RH(D) POSITI VE For addit ional infor sabrina roth e refer to http: //divina raphael.Deon stDia gnost ics.c om/fa q/FAQ 111 (This link is being provi ded for infor amy trujillo/ inna monique purpo ses only. ) Not Available [facility] [address] [address] [address], [place], [address], 02/27/2025 22:28:57 02/27/20 25 02/27/2025 DRUG MONIT OR, PANEL 1, SCREE N, URINE amphetamines NEGATI VE NG/mL <500 See Note A See Note A Not Available [facility] [address], [place], [address], 02/27/2025 22:28:58 02/27/20 25 02/27/2025 DRUG MONIT OR, PANEL 1, SCREE N, URINE barbiturates NEGATI VE NG/mL <300 See Note A See Note A Not Available [facility] [address], [place], [address], 02/27/2025 22:28:58 02/27/20 25 02/27/2025 DRUG MONIT OR, PANEL 1, SCREE N, URINE benzodiazepi duane NEGATI VE NG/mL <100 See Note A See Note A Not Available [facility] [address], [place], [address], 02/27/2025 22:28:58 02/27/20 25 02/27/2025 DRUG MONIT OR, PANEL 1, SCREE N, URINE cocaine metabolite NEGATI VE NG/mL <150 See Note A See Note A Not Available [facility] [address], [place], [address], 02/27/2025 22:28:58 02/27/20 25 02/27/2025 DRUG MONIT OR, PANEL 1, SCREE N, URINE marijuana metabolite NEGATI VE NG/mL <20 See Note A See Note A Not Available [facility] [address] [address] [address], [place], [address], 02/27/2025 22:28:58 02/27/20 25 02/27/2025 DRUG MONIT OR, PANEL 1, SCREE N, URINE methadone metabolite NEGATI VE NG/mL <100 See Note A See Note A Not Available [address] [address] [address], [place], [address], 02/27/2025 22:28:58 02/27/20 25 02/27/2025 DRUG MONIT OR, PANEL 1, SCREE N, URINE opiates NEGATI VE NG/mL <100 See Note A See Note A Not Available [address] [address] [address], [place], [address], 02/27/2025 22:28:58 02/27/20 25 02/27/2025 DRUG MONIT OR, PANEL 1, SCREE N, URINE oxycodone NEGATI VE NG/mL <100 See Note A See Note A Not Available [address] [address] [address], [place], [address], 02/27/2025 22:28:58 02/27/20 25 02/27/2025 DRUG MONIT OR, PANEL 1, SCREE N, URINE phencyclidin e NEGATI VE NG/mL <25 See Note A See Note A Not Available [address] [address] [address], [place], [address], 02/27/2025 22:28:58 02/27/20 25 02/27/2025 DRUG MONIT OR, PANEL 1, SCREE N, URINE creatinine 108.1 mg/dL > or = 20.0 Not Available [facility] [address] [address] [address], [place], [address], 02/27/2025 22:28:58 02/27/20 25 02/27/2025 DRUG MONIT OR, PANEL 1, SCREE N, URINE pH 7.7 4.5-9. 0 Not Available [address] [address] [address], [place], [address], 02/27/2025 22:28:58 02/27/20 25 02/27/2025 DRUG MONIT OR, PANEL 1, SCREE N, URINE oxidant NEGATI VE mcg/m L <200 Not Available [address] [place], [address], 02/27/2025 22:28:58 02/27/2002/27/2025 DRUG MONIT ORING TEMPL ATE notes and comments This drug testi ng is for medic al treat ment only. Jim sis was perfo rmed as non-f orens ic testi ng and these resul ts shoul d be used only by [facility] prov[facility] ders to rende r diagn osis or treat ment, or to monit or progr ess of medic al condi tions . Note A: The resul ts are presu mptiv e; based only on tripp godwin, and they have not been confi rmed by a defin itive harshal honeycutt. [facility] Provi ders needi ng Inter preta tion yanci tance , pleas e conta ct us at 1.877 .40.R XTOX (1.87 [phone] ) M-F, 8am to 10pm EST Not Available [address] [address] [place], [address], 02/27/2025 22:28:59 02/27/2002/27/2025 CULTU RE, URINE , ROUTI NE culture, urine, routine SEE NOTE CULTU RE, URINE , ROUTI NE Micro Numbe r: [id number] Test Statu s: Final Speci men Sourc e: Urine Speci men Quali ty: Adequ ate Resul t: No Growt h Not Available [facility] [address] [address] [place], [address], 02/27/2025 22:28:59 02/27/20 25 03/08/2025 THINP REP TIS PAP (REFL ) HPV MRNA E6/E7 clinical information: normal Pregn ant Not Available [facility] [address] [address] [place], [address], 03/08/2025 08:16:51 02/27/2003/08/2025 THINP REP TIS PAP (REFL ) HPV MRNA E6/E7 LMP: normal NONE GIVEN Not Available [address] [place], [address], 03/08/2025 08:16:51 02/27/20 25 03/08/2025 THINP REP TIS PAP (REFL ) HPV MRNA E6/E7 prev. Pap: normal NONE GIVEN Not Available [address], [address], 03/08/2025 08:16:51 02/27/20 25 03/08/2025 THINP REP TIS PAP (REFL ) HPV MRNA E6/E7 prev. BX: normal NONE GIVEN Not Available [address], [address], 03/08/2025 08:16:51 02/27/20 25 03/08/2025 THINP REP TIS PAP (REFL ) HPV MRNA E6/E7 source: normal Cervi x, Endoc ervix Not Available [address], [address], 03/08/2025 08:16:51 02/27/20 25 03/08/2025 THINP REP TIS PAP (REFL ) HPV MRNA E6/E7 statement of adequacy: normal Satis facto ry for evalu ation . Endoc ervic al/tr ansfo rmati on zone compo nent prese nt. Not Available [address], [address], 03/08/2025 08:16:51 02/27/2003/08/2025 THINP REP TIS PAP (REFL ) HPV MRNA E6/E7 general categorizati on: abnormal Cytol ogy Resul ts: Epith elial Cell Abnor malit y Not Available [address], [address], 03/08/2025 08:16:51 02/27/20 25 03/08/2025 THINP REP TIS PAP (REFL ) HPV MRNA E6/E7 interpretati on/result: abnormal Low Grade Squam ous Intra epith elial Lesio n (LSIL ) Not Available [address] [address] [place], [address], 03/08/2025 08:16:51 02/27/20 25 03/08/2025 THINP REP TIS PAP (REFL ) HPV MRNA E6/E7 comment: normal This Pap test has been evalu ated with compu ter yanci bruce techn ology . Sugge st clini rajiv corre latio n and follo w-up as clini solomon appro priat e Not Available [address] [address] [place], [address], 03/08/2025 08:16:51 02/27/2003/08/2025 THINP REP TIS PAP (REFL ) HPV MRNA E6/E7 cytotechnolo gist: normal KMS, CT( CP) CT Scree pat locat ion: [address] [address] [place] [address] Not Available [address] [address] [place], [address], 03/08/2025 08:16:51 02/27/2003/08/2025 THINP REP TIS PAP (REFL ) HPV MRNA E6/E7 pathologist: normal Alisah monique M.D., Board Certi fied in Anato jesús Patho logy and Cytop athol ogy. Phone : [phone] (elec troni c signa ture) Patho logis t Relea se Date/ Time: 03/06 09:25 AM Not Available [address] [address] [place], [address], 03/08/2025 08:16:51 02/27/2003/08/2025 THINP REP TIS PAP (REFL ) HPV MRNA E6/E7 comment EXPLA NATAMBIKA Y NOTE: The Pap is a scree [...] clini rajiv infor amy raphael. Not Available [facility] [address] [address] [place], [address], 03/08/2025 08:16:51 02/27/20 25 03/08/2025 HPV MRNA [...] testi ng optio ns. For addit ional percyr sabrina roth e refer to http: //divina lesterque stdia gnost ics.c om/fa q/FAQ 129v1 (This link if provi ded for infoalonzo raphael/ inna monique purpo ses only. ) Not Available [facility] [address] [address] [address], [place], [address], 03/08/2025 08:16:53 02/27/20 25 02/26/2025 CT + NG + TV, DNA, urine /swab Chlamydia negati ve Not Available [facility] ([facility]) [address] [place], [address], 02/25/2025 18:55:26 02/27/20 25 02/26/2025 CT + NG + TV, DNA, urine /swab Gonorrhea negati ve Not Available [facility] ([facility]) [address] [place], [address], 02/25/2025 18:55:26 02/27/2002/26/2025 CT + NG + TV, DNA, urine /swab Trichomonas negati ve Not Available [facility] ([facility]) [address] [place], [address], 02/25/2025 18:55:26 07/02/2007/02/2025 CBC WBC 11.1 x10 4.0-10 .5 high Not Available [facility] [address] [facility] [address], [place], [address], 07/02/2025 10:24:57 07/02/2007/02/2025 CBC RBC 3.96 x10 3.50-5 .50 Not Available [facility] [address] [facility] [address], [place], [address], 07/02/2025 10:24:57 07/02/20 25 07/02/2025 CBC HGB 12.0 g/dL 12.0-1 6.0 Not Available [facility] [address] [facility] [address], [place], [address], 07/02/2025 10:24:57 07/02/20 25 07/02/2025 CBC HCT 37.1 % 37.0-4 7.0 Not Available [facility] [address] [facility] [address], [place], [address], 07/02/2025 10:24:57 07/02/20 25 07/02/2025 CBC MCV 93.8 fL 80.0-9 9.9 Not Available [facility] [address] [facility] [address], [place], [address], 07/02/2025 10:24:57 07/02/20 25 07/02/2025 CBC MCH 30.4 pg 27.0-3 2.0 Not Available [facility] [address] [facility] [address], [place], [address], 07/02/2025 10:24:57 07/02/20 25 07/02/2025 CBC MCHC 32.4 g/dL 32.0-3 6.0 Not Available [facility] [address] [facility] [address], [place], [address], 07/02/2025 10:24:57 07/02/20 25 07/02/2025 CBC RDW 12.9 % 11.5-1 4.5 Not Available [facility] [address] [facility] [address], [place], [address], 07/02/2025 10:24:57 07/02/2007/02/2025 CBC plt 227.7 x10 140.0- 451.0 Not Available [facility] [address] [facility] [address], [place], [address], 07/02/2025 10:24:57 07/02/20 25 07/02/2025 CBC lymphocytes % 15.5 % 20.0-5 0.0 low Not Available [facility] [address] [facility] [address], [place], [address], 07/02/2025 10:24:57 07/02/20 25 07/02/2025 CBC granulcytes % 78.3 % 30.0-7 0.0 high Not Available [facility] [address] [facility] [address], [place], [address], 07/02/2025 10:24:57 07/02/20 25 07/02/2025 CBC monocytes % 4.2 % 2.0-16 .0 Not Available [facility] [address] [facility] 1, [place], [address], 07/02/2025 10:24:57 07/02/20 25 07/02/2025 CBC granulcytes# 8.7 x10 Not Jenny ilable [facility] [address] [facility] [address], [place], [address], 07/02/2025 10:24:57 07/02/20 25 07/02/2025 CBC lymphocytes # 1.7 x10 Not Available [facility] [address] [facility] [address], [place], [address], 07/02/2025 10:24:57 07/02/20 25 07/02/2025 CBC monocytes # 0.5 x10 Not Avai lable [facility] [address] [facility] [address], [place], [address], 07/02/2025 10:24:57 07/02/20 25 07/02/2025 GLUCO SE SCREE N glucose screen 135.0 mg/dL Not Available [facility] [address] [facility] [address], [place], [address], 07/02/2025 10:30:30 07/11/20 25 07/11/2025 GLUCO SE SCREE N glucose screen 133.0 mg/dL Not Available [facility] [address] [facility] [address], [place], [address], 07/11/2025 10:37:03 08/27/20 25 09/02/2025 CULTU RE, GROUP B STREP WITH SUSCE PTIBI LITY culture, group B strep with susceptibili ty SEE NOTE abnormal CULTU RE, GROUP B STREP WITH SUSCE PTIBI LITY Micro Numbe r: [id number] Test Statu s: Final Speci men [...] See Thera py Comme nts Not Available [facility] [address] [place], [address], 09/02/2025 14:26:34 09/06/20 25 09/06/2025 CBC WBC 9.9 x10 4.0-10 .5 Not Available [facility] [address] [address], [place], [address], 09/06/2025 09:32:26 09/06/2009/06/2025 CBC RBC 4.29 x10 3.50-5 .50 Not Available [facility] [address] [facility] [address], [place], [address], 09/06/2025 09:32:26 09/06/20 25 09/06/2025 CBC HGB 12.6 g/dL 12.0-1 6.0 Not Available [facility] [address] [facility] [address], [place], [address], 09/06/2025 09:32:26 09/06/20 25 09/06/2025 CBC HCT 39.4 % 37.0-4 7.0 Not Available [facility] [address] [facility] [address], [place], [address], 09/06/2025 09:32:26 09/06/20 25 09/06/2025 CBC MCV 91.9 fL 80.0-9 9.9 Not Available [facility] [address] [facility] 1, [place], [address], 09/06/2025 09:32:26 09/06/20 25 09/06/2025 CBC MCH 29.3 pg 27.0-3 2.0 Not Available [facility] [address] [facility] 1, [place], [address], 09/06/2025 09:32:26 09/06/20 25 09/06/2025 CBC MCHC 31.9 g/dL 32.0-3 6.0 low Not Available [facility] [address] [facility] 1, [place], [address], 09/06/2025 09:32:26 09/06/20 25 09/06/2025 CBC RDW 13.2 % 11.5-1 4.5 Not Available [facility] [address] [facility] [address], [place], [address], 09/06/2025 09:32:26 09/06/20 25 09/06/2025 CBC plt 216.3 x10 140.0- 451.0 Not Available [facility] [address] [facility] 1, [place], [address], 09/06/2025 09:32:26 09/06/20 25 09/06/2025 CBC lymphocytes % 21.4 % 20.0-5 0.0 Not Available [facility] [address] [facility] 1, [place], [address], 09/06/2025 09:32:26 09/06/20 25 09/06/2025 CBC granulcytes % 70.6 % 30.0-7 0.0 high Not Available [facility] [address] [facility] [address], [place], [address], 09/06/2025 09:32:26 09/06/20 25 09/06/2025 CBC monocytes % 5.8 % 2.0-16 .0 Not Available [facility] [address] [facility] [address], [place], [address], 09/06/2025 09:32:26 09/06/20 25 09/06/2025 CBC granulcytes# 7.0 x10 Not Jenny ilable [facility] [address] [facility] [place], [address], 09/06/2025 09:32:26 09/06/2009/06/2025 CBC lymphocytes # 2.1 x10 Not Available [facility] [address] [address], [place], [address], 09/06/2025 09:32:26 09/06/2009/06/2025 CBC monocytes # 0.6 x10 Not Avai lable [facility] [address] [facility] [address], [place], [address], 09/06/2025 09:32:26 09/06/2009/06/2025 CMP (FEMA LE) glucose 84.0 mg/dL 60.0-9 9.0 Not Available [id number] [address], [place], [address], 09/06/2025 09:46:52 09/06/2009/06/2025 CMP (FEMA LE) BUN (blood urea nitrogen) 5.0 mg/dL 10.0-2 6.0 low Not Available [facility] [address] [facility] [address], [place], [address], 09/06/2025 09:46:52 09/06/20 25 09/06/2025 CMP (FEMA LE) creatinine (serum) 0.5 mg/dL 0.4-1. 5 Not Available [facility] [address], [place], [address], 09/06/2025 09:46:52 09/06/2009/06/2025 CMP (FEMA LE) BUN/creatini ne ratio 10.00 ratio Not Available [facility] [address] [facility], [place], [address], 09/06/2025 09:46:52 09/06/2009/06/2025 CMP (FEMA LE) eGFR calculated 154.0 Not Available [facility] [address] [facility] Qui[facility]ones [facility] 1, [place], [address], 09/06/2025 09:46:52 09/06/2009/06/2025 CMP (FEMA LE) total protein 7.0 g/dL 6.0-8. 5 Not Available [facility] [address] [facility], [place], [address], 09/06/2025 09:46:52 09/06/2009/06/2025 CMP (FEMA LE) total bilirubin 0.6 mg/dL 0.2-1. 3 Not Available [facility] [address] [facility], [place], [address], 09/06/2025 09:46:52 09/06/2009/06/2025 CMP (FEMA LE) albumin 4.1 g/dL 3.5-5. 5 Not Available [facility] [address] [facility] Qu[facility] 1, [place], [address], 09/06/2025 09:46:52 09/06/2009/06/2025 CMP (FEMA LE) globulin 2.9 calc Not Available [facility] [address] [place] [address] [facility] 1, [place], [address], 09/06/2025 09:46:52 09/06/2009/06/2025 CMP (FEMA LE) AST (SGOT) 33.0 U/L 0.0-46 .0 Not Available [facility] [address] [facility] [place], [address], 09/06/2025 09:46:52 09/06/20 25 09/06/2025 CMP (FEMA LE) altv (SGPT) 22.0 U/L 13.0-6 9.0 normal Not Available [facility] [address] [facility], [place], [address], 09/06/2025 09:46:52 09/06/2009/06/2025 CMP (FEMA LE) A/G ratio 1.4 ratio Not Available [facility] [address] [facility], [place], [address], 09/06/2025 09:46:52 09/06/2009/06/2025 CMP (FEMA LE) ALP phos 160.0 U/L 30.0-1 40.0 abnormal Not Available [facility] [address] [facility] 1, [place], [address], 09/06/2025 09:46:52 09/06/2009/06/2025 CMP (FEMA LE) calcium 9.0 mg/dL 8.4-10 .5 Not Available [facility] [address] [facility] [address], [place], [address], 09/06/2025 09:46:52 09/06/2009/06/2025 CMP (FEMA LE) sodium 137.0 mmol/ L 136.0- 145.0 Not Available [facility] [address] [facility] 1, [place], [address], 09/06/2025 09:46:52 09/06/2009/06/2025 CMP (FEMA LE) potassium 3.4 mmol/ L 3.5-5. 1 low Not Available [facility] [address] Felisha Quiñones [facility] 1, [place], [address], 09/06/2025 09:46:52 09/06/2009/06/2025 CMP (FEMA LE) chloride 105.0 mmol/ L 98.0-1 10.0 normal Not Available [facility] [address] [facility] 1, [place], [address], 09/06/2025 09:46:52 09/06/2009/06/2025 CMP (FEMA LE) C02 24.0 mmol/ L 22.0-3 1.0 Not Available [facility] [address] [facility], [place], [address], 09/06/2025 09:46:52 09/06/20 25 09/06/2025 CMP (FEMA LE) anion gap 8.0 calc Not Available [facility] [address] [facility], [place], [address], 09/06/2025 09:46:52 09/06/20 25 09/06/2025 CMP (FEMA LE) osmolality 279.9 calc Not Available [facility] [address] [facility], [place], [address], 09/06/2025 09:46:52 09/06/2009/06/2025 LIPID PROFI LE (FEMA LE) cholesterol 195.0 mg/dL 0.0-20 0.0 Not Available [facility] [address] [facility] 1, [place], [address], 09/06/2025 09:46:55 09/06/20 25 09/06/2025 LIPID PROFI LE (FEMA LE) trig 114.0 mg/dL 0.0-15 0.0 Not Available [facility] [address] [facility] 1, [place], [address], 09/06/2025 09:46:55 09/06/2009/06/2025 LIPID PROFI LE (FEMA LE) HDL - direct 74.0 mg/dL >40.0 Not Available [facility] [address] [facility] 1, [place], [address], 09/06/2025 09:46:55 09/06/20 25 09/06/2025 LIPID PROFI LE (FEMA LE) VLDL - direct 22.8 mg/dL Not Available [facility] [address] [facility] 1, [place], [address], 09/06/2025 09:46:55 09/06/20 25 09/06/2025 LIPID PROFI LE (FEMA LE) LDL - direct 98.2 mg/dL 0.0-13 0.0 Not Available [facility] [address] [facility] 1, [place], [address], 09/06/2025 09:46:55 09/06/2009/06/2025 TSH TSH 1.69 uIU/m L 0.49-3 .82 Not Available [facility] [address] [facility] 1, [place], [address], 09/06/2025 10:02:31 09/06/2009/06/2025 HBA1C hemaglobin A1C 5.4 4.2-6. 5 Not Available [facility] [address] [facility] 1, [place], [address], 09/06/2025 12:51:07 02/19/20 25 02/12/2025 , chadwick martinez, 1st trime ster No observ ation record ed. Not Available 02/19 09:09:34 04/25/20 25 04/18/2025 , obste tric, follo w-up No observ ation record ed. [email or web address] [facility] [address] [place], [address], 04/29/2025 09:24:34 05/11/20 25 05/07/2025 US, obste tric, 2nd trime ster No observ ation record ed. [facility] [address] [place], [address], 05/13/2025 17:57:21 07/05/20 25 07/02/2025 imagi ng/di agnos tic resul t No observ ation record ed. [facility] [address] [place], [address], 07/09/2025 10:35:54 Result Notes None recorded. Problems Name Problem SNOMED Code Status Onset Date Resolution Date Notes Provider Name and Address Organization Details Recorded Time Rheumatoid arthritis 17093359 Active 2022 KERWIN roper [facility] 14:16:25 Pain of knee region 0060161814 Completed 202301/24/2025 KERWIN roper [facility] 14:16:23 Family history of diabetes mellitus 857589579 Active 2023 KERWIN roper [facility] 14:16:18 Normal 12804056 Active 2024 ROXI SHEARER KAVITHA null [facility] 5 10:22:35 Normal 34015765 Active 2024 ROXI Vang [facility] 5 10:22:35 Placenta previa partialis 23740843 Active 2024 Alvaro Angelo MD [address] [place] [address] [place], [address], [facility] 5 02:46:26 Low-lying placenta 197233471 Active 2024 Alvaro Angelo MD [address] [place], [address], [facility] L.LRemigioCRemigio 5 11:36:47 Problem Notes None recorded. Procedures Surgical History Date Name Laterality Status Provider Name and Address Organization Details Recorded Time 02/27/20 25 Date of Last Pap Smear completed [facility] 09/02/2025 18:39:21 02/27/20 25 liquid based cervical cytology screening completed [facility] 09/02/2025 18:39:54 01/31/20 24 colposcopy completed [facility] 01/24/2025 14:17:49 01/31/20 24 hysteroscopy completed [facility] 01/24/2025 14:18:46 arthroscopy of left knee joint completed [facility] 01/24/2025 14:17:01 cholecystectomy completed [facility] 01/24/2025 14:17:33 Imaging Results None recorded. Procedure Notes None recorded. Medical Equipment None Reported. Allergies Allergen ID Allergen Name Allergen Category Reaction Reaction Severity Criticality Documentation Date Start Date Code Code System Note Provider Name and Address Organization Details Recorded Time 19117 Bactrim medicatio n hives moderate Not available 05/21/2023 87269 9 RxNorm TREJOSE RAUL Vang, [facility] 15:30:03 23061 Product containin g penicilli n (product) medicatio n hives moderate Not available 05/21/2023 37595 8001 SNOMED TREBA NEUSCHWAN KAVITHA [facility] 5 15:30:03 45144 Augmentin medicatio n hives moderate Not available 01/24/2025 45367 2 RxNorm KERWIN DUNAWAY [facility] 5 14:19:18 83416 Celebrex medicatio n other moderate Not available 01/24/2025 57540 7 RxNorm TREBA NEUSCHWAN KAVITHA [facility] 5 15:30:03 83580 Substance with sulfonami de structure and antibacte rial mechanism of action (substanc e) medicatio n hives moderate Not available 04/18/2025 66552 8003 SNOMED TREBA NEUSCHWAN KAVITHA [facility] 5 15:30:03 37767 amoxicill in / clavulana te medicatio n hives Not available high 09/06/20252022 37127 RxNorm Yessy ates PCN and amoxi cilli n fine Not Available [employer] - External Data Service - prod 5 07:58:34 91982 celecoxib medicatio n Not available Not available high 09/06/20252022 29977 7 RxNorm Not Available [employer] External Data Service - prod 5 07:58:34 Medications [...] Details Last Updated DateTime 5 170.18 cm 38.2 kg/m2 244229. 24 g 98 % 80 /min 18 /min 97.7 [degF] 122/76 mm[Hg] ROXI PLUMMER [facility] 5 11:04:11 Social History Question Answer Notes LastModified by Organizat ion Details LastModified Time Tobacco Smoking Status [facility] 01/24/2023 10:09:31 Are You Blind Or Do You Have Difficulty Seeing? No Information not available 01/24/2025 Are You Deaf Or Do You Have Serious Difficulty Hearing? No [email or web address] Information not available 01/24/2023 When Did You Quit Smoking? 1-5yearssinc elastcigaret te [email or web address] Information not available 01/24/2023 Do You Work In Healthcare? No Information not available 01/24/2025 What Was The Date Of Your Most Recent Tobacco Screening? 03/26/2025 [email or web address] Information not available 03/26/2025 What Is Your Relationship Status? Information not available 01/24/2025 Have You Recently Traveled Abroad? No [email or web address] Information not available 01/24/2023 Do You Have [...] independently without assistance or assistive devices? YESWOREST [email or web address] Information not available 01/24/2023 Do you have difficulty doing errands alone? No [email or web address] Information not available 01/24/2023 Are you able to care for yourself independently? 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 No [email or web address] Information not available 01/24/2023 Do you or have you ever used e-cigarettes or vape? Former user of electronic cigarettes Information not available 01/24/2025 Mental Status Question Answer Note LastModified by Organization D etails LastModified Time Do you have difficulty concentrating, remembering or making decisions? No [email or web address] Information no t available 01/24/2023 Family History Relationship Description Onset Age of this Age Resolved Age Notes LastModified by Organization Details LastModified Time Father Diabetes mellitus Not available 2023 09:43:45 Paternal Grandmother Malignant neoplasm of ovary [email or web address] Not available 10:54:13 Notes:Cancer Maternal Grandf ather: Brain Cancer Paternal Grandmother: Ovarian Cancer Medical History Condition Response Coronary Artery Disease N Other N Gout N Kidney Stones N Blood Diseases N Hyperthyroidism N Blood Transfusion N Breast Cancer N Depression N Hypothyroidism N Lung Disease N COPD N Defects or Inherited Disease N Developmental or Behavioral Disorders N Breast Problem N Difficulty Swallowing N Anesthesia Complications N Meniere's disease N Anxiety Disorder N Muscle, Joint, or Bone Problems Y Vision or Eye Problems N Arthritis N Polyps N Infertility N Cancer N Varicosities N Stroke N Endometriosis N Bladder or Kidney Problems N High Cholesterol N Liver Disease N Fibromyalgia N Headaches N Kidney Disease N Allergies/Hayfever Y Heart [...] Details Recorded Time IPV 09/28/2000 kaushal roper [facility] 10/09/2024 09:35:10 MMR 04/11/1996 kaushal roper [facility] VikiLRemigioCRemigio 10/09/2024 09:35:10 MMR 09/28/2000 kaushal roper [facility] 10/09/2024 09:35:10 Tdap 11/17/2010 completed Susan Wilson null, [facility] 10/09/2024 09:35:10 Tdap 02/20/2015 completed Susan Wilson null, [facility] 10/09/2024 09:35:10 Hep B, unspecified formulation 1995 completed Susan Wilson null, [facility] 10/09/2024 09:35:10 Hep B, unspecified formulation 02/28/1996 completed Susan Wilson null, [facility] 10/09/2024 09:35:10 Hep B, unspecified formulation 1995 completed Susan Wilson null, [facility] 10/09/2024 09:35:10 OPV, trivalent 1995 completed Ussan Wilson null, [facility] 10/09/2024 09:35:10 OPV, trivalent 02/28/1996 completed Susan Wilson null, [facility] 10/09/2024 09:35:10 OPV, trivalent 1995 completed Susan Wilson null, [facility] 10/09/2024 09:35:10 DTP-Hib 11/29/1996 completed Susan Wilson null, [facility] 10/09/2024 09:35:10 DTP-Hib 1995 completed Susan Wilson null, [facility] 10/09/2024 09:35:10 DTP-Hib 02/28/1996 completed Susan Wilson null, [facility] 10/09/2024 09:35:10 DTP-Hib 1995 completed Susan roper [facility] 10/09/2024 09:35:10 DTaP 09/28/2000 completed Susan roper [facility] 10/09/2024 09:35:10 Past Encounters Encounter ID Performer Location Encounter Start Date Encounter Closed Date Diagnosis/Indication Diagnosis SNOMED-CT Code Diagnosis ICD10 Code Diagnosis IMO Codes Diagnosis Note [id number] Alvaro Angelo MD [facility] ([facility]) [address] [place], [place] [address] 08/27/2025 10:35:57 08/27/2025 11:34:41 Normal 58388145 Z34.83 Gestation period, 36 weeks 72418224 Z3A.36 [id number] Alvaro Angelo MD [facility]) [address] [place] [address] 5 09/03/2025 10:32:59 09/03/2025 11:48:15 Multigravida 585549531 Z34.83 80518440 Gestation period, 37 weeks 93977133 Z3A.37 [id number] Giovani Yu MD [facility] ([facility]) [address] [place] [address] 5 09/06/2025 07:58:00 09/11/2025 03:58:55 Adult health examination 808177058 Z00.00 [id number] LISSETH SETHI [facility] ([facility]) [address] [place] [address] 5 09/06/2025 07:58:35 09/11/2025 03:58:55 Physical examination 6608706 Z00.00 [id number] Alvaro Angelo MD [facility] ([facility]) [address] [place] [address] 5 09/10/2025 13:45:56 09/10/2025 14:47:57 Multigravida 441523411 Z34.83 [id number] Gestation period, 38 weeks 97056588 Z3A.38 [id number] Alvaro Angelo MD [facility] ([facility]) [address] [place] [id number] 09/17/2025 10:35:44 09/17/2025 11:14:06 Normal in multigravida 4556180305 83560 Z34.80 [id number] Gestation period, 39 weeks 70847968 Z3A.39 6992834 [id number] Alvaro Angelo MD [facility] ([facility]) [address] [place] [id number] 09/24/2025 10:36:35 09/24/2025 11:31:14 Normal 12482130 Z34.83 19630910 Gestation period, 40 weeks 94968760 Z3A.40 [id number] Health Concerns Section Related Observation LastModified by Organization Detai ls LastModified Time None Recorded Concern Status LastModified by Organization Details LastModified Time None Recorded Payers Encounter Date Sequence Insurance Name Policy Number Policy Fierro Covered Member ID Fierro Member ID Guarantor Name 09/24/2025 1 LANETTE (PPO) [id number] Jeffy Zimmerman [id number] Jeffy Zimmerman Notes Date Note Type Note Provider Name and Address Organization Details Recorded Time 5 text/html jr ob routineReported by PatientHPIFor associated symptoms, patient reportscontractions (irreg)andedema (hands,feet,legs)but reportsno abdominal pain,no cramping,normal movement,no bleeding,no vaginal discharge,no vaginal/vulvar itching or irritation,no dysuria,no frequency,no urgency,no hematuria,no fever,no nausea,no emesis,no constipation,no diarrhea/loose stool,no visual changes,no headache,no dizziness, andno breathlessness.heartburn / acid reflux with meals, back pain, vaginal pressureDenies any tobacco, nicotine, alcohol, or drug useROS as noted in the HPI Alvaro Angelo MD [address] [place] [address], [phone], [facility] [place] 09/24/2025 11:31:04 OBGyn Episode Ob Episode Information Episode Created Date Number of Fetuses Patient Bloodtype Patient rh Status Prepregnancy Weight lbs Domestic Partner Domestic Partner Phone Father Name Dbas Status 01/25/20 1 O Positive Damián OPEN [...] Resolution Snomed Code Not e Normal 02/25/2025 [id number] Harshil Calculation Initial Harshil Date Initial Exam [...] Weight in lbs Pre/Post Dialysis Refused Weight 227.494776281664 BP Diastolic BP Location Tested BP Systolic [...] Weight in lbs Pre/Post Dialysis Refused Weight 221.626546726727 BP Diastolic BP Location Tested BP Systolic [...] Weight in lbs Pre/Post Dialysis Refused Weight 221.667016026237 BP Diastolic BP Location Tested BP Systolic [...] Weight in lbs Pre/Post Dialysis Refused Weight 225.728961516829 BP Diastolic BP Location Tested BP Systolic [...] Weight in lbs Pre/Post Dialysis Refused Weight 230.618928997773 BP Diastolic BP Location Tested BP Systolic BP Type 62 L arm 106 Fetus Heart Rate Present A 148 Present Fetus Movement A Yes Comments heartburn Flowsheet Date 06/18/2025 Sierra Score Blood Edema Fundus Height Fundus Units Glucose Ketones Leukocytes Nitrite Labor Signs Protein Cervic Dilation Cervic Effacement Cervic Station Type Weight in lbs Pre/Post Dialysis Refused Weight 229.0333605140 BP Diastolic BP Location Tested BP Systolic [...] Weight in lbs Pre/Post Dialysis Refused Weight 234.147073032908 BP Diastolic BP Location Tested BP Systolic [...] Weight in lbs Pre/Post Dialysis Refused Weight 232.417792620734 BP Diastolic BP Location Tested BP Systolic [...] Weight in lbs Pre/Post Dialysis Refused Weight 236.101070641047 BP Diastolic BP Location Tested BP Systolic BP Type 76 120 Fetus Heart Rate Present A 144 Present Fetus Movement A Yes Comments mild swelling, heartburn int ermittent Flowsheet Date 08/13/2025 Sierra Score Blood Edema Fundus Height Fundus Units Glucose Ketones Leukocytes Nitrite Labor Signs Protein Cervic Dilation Cervic Effacement Cervic Station 34 cm none trace Michael Garnett neg Type Weight in lbs Pre/Post Dialysis Refused Weight 239.728802976693 BP Diastolic BP Location Tested BP Systolic [...] Weight in lbs Pre/Post Dialysis Refused Weight 241.666283182777 BP Diastolic BP Location Tested BP Systolic [...] Cervic Effacement Cervic Station none none Negative [place] Garnett neg 2cm 70% -3 Type Weight in lbs Pre/Post Dialysis Refused Weight 241.903018394654 BP Diastolic BP Location Tested BP Systolic [...] Weight in lbs Pre/Post Dialysis Refused Weight 243.646170519755 BP Diastolic BP Location Tested BP Systolic BP Type 70 120 Fetus Heart Rate Present Fetus Movement Comments Flowsheet Date 09/10/2025 Sierra Score Blood Edema Fundus Height Fundus Units Glucose Ketones Leukocytes Nitrite Labor Signs Protein Cervic Dilation Cervic Effacement Cervic Station none trace Negative [place] Garnett neg 2cm 70% -3 Type Weight in lbs Pre/Post Dialysis Refused Weight 243.644438391164 BP Diastolic BP Location Tested BP Systolic [...] Weight in lbs Pre/Post Dialysis Refused Weight 242.205554282297 BP Diastolic BP Location Tested BP Systolic BP Type 70 122 Fetus Heart Rate Present A 164 Present Fetus Movement A Yes Comments low back pain, vaginal press ure, swelling in hands/feet Flowsheet Date 09/24/2025 Sierra Score Blood Edema Fundus Height Fundus Units Glucose Ketones Leukocytes Nitrite Labor Signs Protein Cervic Dilation Cervic Effacement Cervic Station none 1+ Negative [place] Garnett trace 3cm 70% -4 Type Weight in lbs Pre/Post Dialysis Refused Weight 244.598901409129 BP Diastolic BP Location Tested BP Systolic [...] Weight in lbs Pre/Post Dialysis Refused Weight 248.211827628531 BP Diastolic BP Location Tested BP Systolic [...] Estim ated Date of Delivery false Thalassemia (English, French, Mediterranean, Or Background): MCV < 80 false Neural Tube Defect (Meningomyelocele, Spina Bifi da, Or Anencephaly) false Congenital Heart Defect false Down Syndrome false Maco-Sachs (eg, Synagogue, Cajun, Citizen Of [place]) f alse Dustin Disease false Sickle Cell Disease Or Trait () false Hemophilia Or Other Blood Disorders false Muscular Dystrophy false Cystic Fibrosis false Earl's Chorea false Intellectual Disability/Autism false If Yes, [...]
--- OUTSIDE RECORDS SUMMARY | 2025-09-25 15:05 | XMS_ITS | Data Portability ---
Author Organization [facility]io [facility] Address [address] [address] Assessment Encounter Date Assessment Date Assessment LastModified by Organization Details LastModified Time 09/24/2025 09/24/2025 Induction set for Tuesday night. [email or web address] Not available 09/24/2025 11:30:20 Plan of Treatment Reminders Order Date Submit Date Provider Last Modified By Organization Details Last Modified Time Details Appointments RETURN OB 2024 01:15P Eric Angelo MD Not available Not available Not available Lab CBC 2024 025 Formerly [facility], [address] [facility] [address], [facility], [place], [address], 09/06/2025 09:32:26 CMP, serum or plasma 2024 025 Formerly [facility], [address], [facility], [place], [address], 09/06/2025 09:46:52 lipid panel, blood 2024 025 Formerly [facility], [address], [facility], [place], [address], 09/06/2025 09:46:55 thyrotrop in, QN, serum or plasma 2024 025 Formerly [facility], [address], [address], [place], [address], 09/06/2025 10:02:31 hemoglobi n A1C/hemog lobin total, QN, blood 2024 025 [facility], [address], [address], [place], [address], 09/06/2025 12:51:07 Referral None recorded. Procedures None recorded. Surgeries None recorded. Imaging None recorded. Medication Orders None recorded. Patient TargetsNo targets recorded. Patient InstructionsNo instructions recorded. Reason for Referral None Reported. Results Created Date Observation Date Name Description Value Unit Range Abnormal Flag Note LastModifiedBy Organization Detail LastModifiedTime 08/27/2009/02/2025 CULTU RE, GROUP B STREP WITH SUSCE PTIBI LITY culture, group B strep with susceptibili ty SEE NOTE abnormal CULTU RE, GROUP B STREP WITH SUSCE PTIBI LITY Micro Numbe r: [id number] Test Statu s: Final Speci men [...] See Thera py Comme nts Not Available [facility] [id number], [place], [address], 09/02/2025 14:26:34 09/06/20 25 09/06/2025 CBC WBC 9.9 x10 4.0-10 .5 Not Available [facility] [address], [place], [address], 09/06/2025 09:32:26 09/06/20 25 09/06/2025 CBC RBC 4.29 x10 3.50-5 .50 Not Available [facility] [address], [place], [address], 09/06/2025 09:32:26 09/06/20 25 09/06/2025 CBC HGB 12.6 g/dL 12.0-1 6.0 Not Available [facility] [address], [place], [address], 09/06/2025 09:32:26 09/06/20 25 09/06/2025 CBC HCT 39.4 % 37.0-4 7.0 Not Available [facility] [address], [place], [address], 09/06/2025 09:32:26 09/06/20 25 09/06/2025 CBC MCV 91.9 fL 80.0-9 9.9 Not Available [facility] [address], [place], [address], 09/06/2025 09:32:26 09/06/20 25 09/06/2025 CBC MCH 29.3 pg 27.0-3 2.0 Not Available [facility] [address], [place], [address], 09/06/2025 09:32:26 09/06/20 25 09/06/2025 CBC MCHC 31.9 g/dL 32.0-3 6.0 low Not Available [facility] [address], [place], [address], 09/06/2025 09:32:26 09/06/20 25 09/06/2025 CBC RDW 13.2 % 11.5-1 4.5 Not Available [facility] [address] [facility] Qu[address] [facility], [place], [address], 09/06/2025 09:32:26 09/06/20 25 09/06/2025 CBC plt 216.3 x10 140.0- 451.0 Not Available [facility] [address] [facility], [place], [address], 09/06/2025 09:32:26 09/06/20 25 09/06/2025 CBC lymphocytes % 21.4 % 20.0-5 0.0 Not Available [facility] [address] [facility], [place], [address], 09/06/2025 09:32:26 09/06/20 25 09/06/2025 CBC granulcytes % 70.6 % 30.0-7 0.0 high Not Available [facility] [address] [facility], [place], [address], 09/06/2025 09:32:26 09/06/20 25 09/06/2025 CBC monocytes % 5.8 % 2.0-16 .0 Not Available [facility] [address] [facility] 1, [place], [address], 09/06/2025 09:32:26 09/06/20 25 09/06/2025 CBC granulcytes# 7.0 x10 Not Jenny ilable [facility] [address] [facility] 1, [place], [address], 09/06/2025 09:32:26 09/06/20 25 09/06/2025 CBC lymphocytes # 2.1 x10 Not Available [facility] [address] [facility] 1, [place], [address], 09/06/2025 09:32:26 09/06/20 25 09/06/2025 CBC monocytes # 0.6 x10 Not Avai lable [facility] [address] [facility] [address] [facility], [place], [address], 09/06/2025 09:32:26 09/06/20 25 09/06/2025 CMP (FEMA LE) glucose 84.0 mg/dL 60.0-9 9.0 Not Available [facility] [address] [facility], [place], [address], 09/06/2025 09:46:52 09/06/2009/06/2025 CMP (FEMA LE) BUN (blood urea nitrogen) 5.0 mg/dL 10.0-2 6.0 low Not Available [facility] [address] [facility], [place], [address], 09/06/2025 09:46:52 09/06/20 25 09/06/2025 CMP (FEMA LE) creatinine (serum) 0.5 mg/dL 0.4-1. 5 Not Available [facility] [address] [facility] [place] [address], [place], [address], 09/06/2025 09:46:52 09/06/20 25 09/06/2025 CMP (FEMA LE) BUN/creatini ne ratio 10.00 ratio Not Available [facility] [address] [facility], [place], [address], 09/06/2025 09:46:52 09/06/20 25 09/06/2025 CMP (FEMA LE) eGFR calculated 154.0 Not Available [facility] [address] [facility] [place] [address], [place], [address], 09/06/2025 09:46:52 09/06/20 25 09/06/2025 CMP (FEMA LE) total protein 7.0 g/dL 6.0-8. 5 Not Available [facility] [address] [facility] [address] [facility], [place], [address], 09/06/2025 09:46:52 09/06/20 25 09/06/2025 CMP (FEMA LE) total bilirubin 0.6 mg/dL 0.2-1. 3 Not Available [facility] [address] [facility], [place], [address], 09/06/2025 09:46:52 09/06/20 25 09/06/2025 CMP (FEMA LE) albumin 4.1 g/dL 3.5-5. 5 Not Available [facility] [address] [facility], [place], [address], 09/06/2025 09:46:52 09/06/20 25 09/06/2025 CMP (FEMA LE) globulin 2.9 calc Not Available [facility] [address] [facility], [place], [address], 09/06/2025 09:46:52 09/06/20 25 09/06/2025 CMP (FEMA LE) AST (SGOT) 33.0 U/L 0.0-46 .0 Not Available [facility] [address] [facility] 1, [place], [address], 09/06/2025 09:46:52 09/06/20 25 09/06/2025 CMP (FEMA LE) altv (SGPT) 22.0 U/L 13.0-6 9.0 normal Not Available [facility] [address] [facility], [place], [address], 09/06/2025 09:46:52 09/06/20 25 09/06/2025 CMP (FEMA LE) A/G ratio 1.4 ratio Not Available [facility] [address] [facility] 1, [place], [address], 09/06/2025 09:46:52 09/06/2009/06/2025 CMP (FEMA LE) ALP phos 160.0 U/L 30.0-1 40.0 abnormal Not Available [facility] [address] [facility] 1, [place], [address], 09/06/2025 09:46:52 09/06/2009/06/2025 CMP (FEMA LE) calcium 9.0 mg/dL 8.4-10 .5 Not Available [facility] [address] [facility] 1, [place], [address], 09/06/2025 09:46:52 09/06/2009/06/2025 CMP (FEMA LE) sodium 137.0 mmol/ L 136.0- 145.0 Not Available [facility] [address] [facility] 1, [place], [address], 09/06/2025 09:46:52 09/06/2009/06/2025 CMP (FEMA LE) potassium 3.4 mmol/ L 3.5-5. 1 low Not Available [facility] [address] [facility] 1, [place], [address], 09/06/2025 09:46:52 09/06/2009/06/2025 CMP (FEMA LE) chloride 105.0 mmol/ L 98.0-1 10.0 normal Not Available [facility] [address] [facility] 1, [place], [address], 09/06/2025 09:46:52 09/06/2009/06/2025 CMP (FEMA LE) C02 24.0 mmol/ L 22.0-3 1.0 Not Available [facility] [address] [facility] 1, [place], [address], 09/06/2025 09:46:52 09/06/20 25 09/06/2025 CMP (FEMA LE) anion gap 8.0 calc Not Available [facility] [address] [facility] 1, [place], [address], 09/06/2025 09:46:52 09/06/20 25 09/06/2025 CMP (FEMA LE) osmolality 279.9 calc Not Available [facility] [address] [facility] 1, [place], [address], 09/06/2025 09:46:52 09/06/2009/06/2025 LIPID PROFI LE (FEMA LE) cholesterol 195.0 mg/dL 0.0-20 0.0 Not Available [facility] [address] [facility], [place], [address], 09/06/2025 09:46:55 09/06/20 25 09/06/2025 LIPID PROFI LE (FEMA LE) trig 114.0 mg/dL 0.0-15 0.0 Not Available [facility] [address] [facility] 1, [place], [address], 09/06/2025 09:46:55 09/06/20 25 09/06/2025 LIPID PROFI LE (FEMA LE) HDL - direct 74.0 mg/dL >40.0 Not Available [facility] [address] [facility] 1, [place], [address], 09/06/2025 09:46:55 09/06/20 25 09/06/2025 LIPID PROFI LE (FEMA LE) VLDL - direct 22.8 mg/dL Not Available [facility] [address] [facility] 1, [place], [address], 09/06/2025 09:46:55 09/06/20 25 09/06/2025 LIPID PROFI LE (FEMA LE) LDL - direct 98.2 mg/dL 0.0-13 0.0 Not Available [facility] [address] [facility], [place], [address], 09/06/2025 09:46:55 09/06/2009/06/2025 TSH TSH 1.69 uIU/m L 0.49-3 .82 Not Available [facility] [address] [facility] 1, [place], [address], 09/06/2025 10:02:31 09/06/2009/06/2025 HBA1C hemaglobin A1C 5.4 4.2-6. 5 Not Available [facility] [address] [facility] 1, [place], [address], 09/06/2025 12:51:07 Result Notes None recorded. Problems Name Problem SNOMED Code Status Onset Date Resolution Date Notes Provider Name and Address Organization Details Recorded Time Rheumatoid arthritis 85507065 Active 2022 KERWIN roper [facility] 14:16:25 Pain of knee region 9065597635 Completed 202301/24/2025 KERWIN roper [facility] 14:16:23 Family history of diabetes mellitus 337305536 Active 2023 KERWIN roper [facility]CR[facility]io 5 14:16:18 Normal 14800441 Active 2024 ROXI Vang [facility], LRemigioL.CRemigio 5 10:22:35 Normal 41293910 Active 2024 ROXI Vang [facility], LRemigioL.CRemigio 5 10:22:35 Placenta previa partialis 54706153 Active 2024 Alvaro Angelo MD [address] [place], [address], [facility] 5 02:46:26 Low-lying placenta 782315399 Active 2024 Alvaro Angelo MD [address] [place], [address], [facility] [place] 11:36:47 Problem Notes None recorded. Procedures Surgical History Date Name Laterality Status Provider Name and Address Organization Details Recorded Time 02/27/20 25 Date of Last Pap Smear completed [facility] [place] 09/02/2025 18:39:21 02/27/20 25 liquid based cervical cytology screening completed [facility] 09/02/2025 18:39:54 01/31/20 24 colposcopy completed [facility]ioCR[facility] 01/24/2025 14:17:49 01/31/20 24 hysteroscopy completed [facility], LRemigioLRemigioCRemigio 01/24/2025 14:18:46 arthroscopy of left knee joint completed [facility], LRemigioLRemigioCRemigio 01/24/2025 14:17:01 cholecystectomy completed [facility] L.LRem[facility]ioCR[facility]igio 01/24/2025 14:17:33 Imaging Results None recorded. Procedure Notes None recorded. Medical Equipment None Reported. Allergies Allergen ID Allergen Name Allergen Category Reaction Reaction Severity Criticality Documentation Date Start Date Code Code System Note Provider Name and Address Organization Details Recorded Time 06895 Bactrim medicatio n hives moderate Not available 05/21/2023 39035 9 RxNorm TREJOSE RAUL Vang [facility], VikiLKeely 5 15:30:03 80705 Product containin g penicilli n (product) medicatio n hives moderate Not available 05/21/2023 14133 8001 SNOMED TREBA NEUSCHWAN KAVITHA [facility] 5 15:30:03 40100 Augmentin medicatio n hives moderate Not available 01/24/2025 [address] [facility] 5 14:19:18 52278 Celebrex medicatio n other moderate Not available 01/24/2025 88600 7 RxNorm [address] [facility] 5 15:30:03 08005 Substance with sulfonami de structure and antibacte rial mechanism of action (substanc e) medicatio n hives moderate Not available 04/18/2025 41403 8003 SNOM[address] [facility] 5 15:30:03 61176 amoxicill in / clavulana te medicatio n hives Not available high 09/06/20252022 45804 RxNorm Yessy ates PCN and amoxi cilli n fine Not Available [employer] - prod 5 07:58:34 77253 celecoxib medicatio n Not available Not available high 09/06/20252022 25978 7 RxNorm Not Available [employer] - prod 5 07:58:34 Medications [...] height Body mass index (BMI) Body weight Heart rate Oxygen saturation Systolic And Diastolic Provider Name and Address Organization Details Last Updated DateTime 5 170.18 cm 38.1 kg/m2 533599. 95 g 95 /min 98 % 120/70 mm[Hg] Leigh CANELA [facility], AlisaRemigio 5 08:20:14 Date Recorded Body height Body mass index (BMI) Body weight Oxygen saturation Heart rate Respiratory rate Body temperature Systolic And Diastolic Provider Name and Address Organization Details Last Updated DateTime 5 170.18 cm 38.1 kg/m2 457469. 75 g 98 % 102 /min 18 /min 98.9 [degF] 118/70 mm[Hg] ROXI SHEARER [facility] 5 14:01:34 Date Recorded Body height Body mass index (BMI) Body weight Respiratory rate Heart rate Oxygen saturation Body temperature Systolic And Diastolic Provider Name and Address Organization Details Last Updated DateTime 5 170.18 cm 38 kg/m2 997930. 15 g 18 /min 85 /min 98 % 98.4 [degF] 122/70 mm[Hg] KERWIN [facility] 5 10:58:00 Date Recorded Body height Body mass index (BMI) Body weight Oxygen saturation Heart rate Respiratory rate Body temperature Systolic And Diastolic Provider Name and Address Organization Details Last Updated DateTime 5 170.18 cm 38.2 kg/m2 267775. 24 g 98 % 80 /min 18 /min 97.7 [degF] 122/76 mm[Hg] ROXI LANDISTNHailey [facility] 5 11:04:11 Date Recorded Body height Body mass index (BMI) Body weight Respiratory rate Oxygen saturation Heart rate Body temperature Systolic And Diastolic Provider Name and Address Organization Details Last Updated DateTime 5 170.18 cm 38.8 kg/m2 537462. 91 g 20 /min 96 % 80 /min 99 [degF] 126/64 mm[Hg] [facility] 5 14:29:18 Social History Question Answer Notes LastModified by Organizat ion Details LastModified Time Tobacco Smoking Status [facility] 01/24/2023 10:09:31 Are You Blind Or Do You Have Difficulty Seeing? No Information not available 01/24/2025 Are You Deaf Or Do You Have Serious Difficulty Hearing? No [email or web address] Information not available 01/24/2023 When Did You Quit Smoking? 1-5yearssinc elastcigaret te [email or web address] Information not available 01/24/2023 Do You Work In Healthcare? No Information not available 01/24/2025 What Was The Date Of Your Most Recent Tobacco Screening? 03/26/2025 [email or web address] Information not available 03/26/2025 What Is Your Relationship Status? Information not available 01/24/2025 Have You Recently Traveled Abroad? No [email or web address] Information not available 01/24/2023 Do You Have Difficulty Walking Or Climbing Stairs? No [email or web address] Information not available 01/24/2023 Sex: Unknown Functional [...] you have difficulty doing errands alone? No [email or web address] Information not available 01/24/2023 Are you able to care for yourself independently? 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 No Information not available 01/24/2023 Do you or [...] Organization Details LastModified Time Father Diabetes mellitus [email or web address] Not available 2023 09:43:45 Paternal Grandmother Malignant neoplasm of ovary [email or web address] Not available 10:54:13 Notes:Cancer Maternal Grandf ather: Brain Cancer Paternal Grandmother: Ovarian Cancer Medical History Condition Response Coronary Artery Disease N Gout N Other N Kidney Stones N Blood Diseases N Hyperthyroidism N Blood Transfusion N Breast Cancer N COPD N Depression N Lung Disease N Hypothyroidism N Defects or Inherited Disease N Developmental [...] Problems N GI Problems N ADD/ADHD N Eating Disorder N Skin Problems N Anemia Y Constipation N Mental Illness N Diabetes N Ovarian Cancer N Bedwetting N Seizures/Epilepsy N Tuberculosis N Eczema N Abuse/Domestic Violence N Diverticulitis N Asthma N Reflux/GERD N Hepatitis N Heart Disease N Pulmonary Embolism N Chronic Ear Infections N Pre-Eclampsia N Hypertension N Chicken Pox N Autism Spectrum Disorder (ASD) N Osteoporosis N Thrombophilias N Gynecological History Statement/Question Response Abnormal Pap Y Date of Last Pap Smear 02/26/2025 Date of LMP 12/13/2024 LMP Definite Obstetrics History GPAL:G 3 P 1 0 1 1 Type Value Full Term 1 Induced 1 Living 1 Total 3 Immunizations Vaccine Type Date Status Note Provider Nam e and Address Organization Details Recorded Time IPV 09/28/2000 [facility] 10/09/2024 09:35:10 MMR 04/11/1996 completed [facility] 10/09/2024 09:35:10 MMR 09/28/2000 [facility]aushal [facility]/09/2024 09:35:10 Tdap 11/17/2010 [facility]aushal [facility] 10/09/2024 09:35:10 Tdap 02/20/2015 completed Susan Wilson null, [facility] 10/09/2024 09:35:10 Hep B, unspecified formulation 1995 completed Susan Wilson null, [facility] 10/09/2024 09:35:10 Hep B, unspecified formulation 02/28/1996 completed Susan Wilson null, [facility] 10/09/2024 09:35:10 Hep B, unspecified formulation 1995 completed Susan Wilson null, [facility] 10/09/2024 09:35:10 OPV, trivalent 1995 completed Susan Wilson null, [facility] 10/09/2024 09:35:10 OPV, trivalent 02/28/1996 completed Susan Wilson null, [facility] 10/09/2024 09:35:10 OPV, trivalent 1995 completed Susan Wilson null, [facility] 10/09/2024 09:35:10 DTP-Hib 11/29/1996 completed Susan Wilson null, [facility] 10/09/2024 09:35:10 DTP-Hib 1995 completed Susan Wilson null, [facility] 10/09/2024 09:35:10 DTP-Hib 02/28/1996 completed Susan Wilson null, [facility] 10/09/2024 09:35:10 DTP-Hib 1995 completed Susan Wilson null, [facility] 10/09/2024 09:35:10 DTaP 09/28/2000 completed Susan Wilson null, [facility] 10/09/2024 09:35:10 Past Encounters Encounter ID Performer Location Encounter Start Date Encounter Closed Date Diagnosis/Indication Diagnosis SNOMED-CT Code Diagnosis ICD10 Code Diagnosis IMO Codes Diagnosis Note [id number] Bunny Hooks DO [facility] ([facility]) [address] [place] [address] 01/24/2023 09:44:05 01/24/2023 10:25:35 Hematochezia 599627539 K92.1 Constipation 82167021 K5 9.00 Rheumatoid arthritis 698 15136 M06.9 will likely see ortho after colonoscop y [id number] Bunny Hooks DO [facility] ([facility]) [address] [place] [address] 02/07/2023 10:39:31 02/07/2023 11:29:00 Rheumatoid arthritis 18006536 M06.9 failed methotrexa te, prednisone ; she would like to see ortho before seeing rheum again Effusion o f joint of left knee 1383574253 98888 M25.462 [id number] Bunny Hooks DO [facility] ([facility]) [address] [place] [address] 03/07/2023 09:53:33 03/07/2023 18:40:55 Proctocolitis 196595083 K51.30 Psoriatic arthritis 1563 24401 L40.50 [id number] Bunny Hooks DO [facility] ([facility]) [address] [place] [address] 09/05/2024 08:45:42 09/05/2024 13:10:28 Adult health examination 220870877 Z00.00 [id number] LISSETH SETHI [facility] ([facility]) [address] [place] [address] 09/06/2024 14:15:10 09/10/2024 14:49:28 [id number] Jose Rao DO [facility] ([facility]) [address] [place] [id number] 10/09/2024 09:12:04 10/14/2024 09:03:13 Family history of diabetes mellitus 312639225 Z83.3 10/09/24- Reviewed and discussed recent lab, reassured her fasting glucose of 90 is good for a nondiabeti c, A1c 5.1, indicating no DM. Pain of knee region 1003 389008 M25.569 10/09/24- left knee, bothering her intermitte nt, consider further imaging if bothering her, to let us know. [id number] Alvaro Angelo MD [facility] ([facility]) [address] [place], [place] [phone] 01/24/2025 14:07:35 01/24/2025 15:24:12 Normal in multigravida 7347391620 89146 Z34.80 Gestation period, 6 weeks 63056771 Z3A.01 [id number] Alvaro Angelo MD [facility] ([facility]) [address] [place], [place] [address] 02/12/2025 08:51:50 02/13/2025 12:21:54 [id number] Alvaro Angelo MD [facility] ([facility]) [address] [place] [id number] 02/26/2025 09:55:12 02/26/2025 11:12:10 Normal 04478812 Z34.81 0955058 Gestation period, 10 weeks 22227643 Z3A.10 4039811 [id number] Alvaro Angelo MD [facility] ([facility]) [address] [place], [place] [phone] 03/26/2025 11:52:52 03/26/2025 13:14:18 Normal 64268473 Z34.81 Gestation period, 14 weeks 19466832 Z3A.14 9906397 [id number] Alvaro Angelo MD [facility] ([facility]) [address] [place] [address] 04/18/2025 15:22:00 04/22/2025 14:45:12 Normal 71725754 Z34.81 Spotting p er vagina in 620264986 O26.859 457001 Placenta p revia partialis 24264365 O44.20 [id number] Alvaro Angelo MD [facility] ([facility]) [address] [place] [id number] 04/18/2025 16:24:03 04/19/2025 10:34:52 Normal 11755926 Z34.80 [id number] Alvaro Angelo MD [facility] ([facility]) [address] [place] [address] 05/07/2025 12:37:11 05/08/2025 13:45:28 [id number] Alvaro Angelo MD [facility] ([facility]) [address] [place] [id number] 05/21/2025 10:36:15 05/21/2025 11:48:01 Normal 29383984 Z34.81 Gestation period, 22 weeks 96937613 Z3A.22 6969262 Low-lying placenta 35720 2006 O44.40 359604 [id number] Alvaro Angelo MD [facility] ([facility]) [address] [place] [address] [phone] 5 06/18/2025 11:21:56 06/18/2025 12:15:35 Normal [id number] Z34.81 Gestation period, 26 weeks [id number] Z3A.26 [id number] Alvaro Angelo MD [facility] ([facility]) [address] [place] [address] [phone] 5 07/02/2025 08:58:15 07/03/2025 12:00:14 [id number] Alvaro Angelo MD [facility] ([facility]) [address] [place] [address] [phone] 5 07/02/2025 08:58:47 07/04/2025 04:05:41 [id number] Alvaro Angelo MD [facility] ([facility]) [address] [place] [address] [phone] 5 07/02/2025 10:39:30 07/02/2025 11:45:25 Normal 14952303 Z34.83 [id number] Gestation period, 28 weeks [id number] Z3A.28 [id number] Alvaro Angelo MD [facility] ([facility]) [address] [place] [address] [phone] 5 07/16/2025 10:32:08 07/16/2025 11:40:01 Multigravida [id number] Z34.83 [id number] Gestation period, 30 weeks [id number] Z3A.30 [id number] Alvaro Angelo MD [facility] ([facility]) [address] [place], [place] [phone] 5 07/30/2025 10:40:36 07/30/2025 11:28:24 Normal 85643913 Z34.83 Gestation period, 32 weeks 2247741 Z3A.32 [id number] Alvaro Angelo MD [facility] ([facility]) [address] [place] [address] [phone] 5 08/13/2025 10:44:33 08/13/2025 11:38:15 Normal 97246566 Z34.83 Gestation period, 34 weeks 17691823 Z3A.34 [id number] Alvaro Angelo MD [facility] ([facility]) [address] [place] [address] [phone] 5 08/27/2025 10:35:57 08/27/2025 11:34:41 Normal 85770623 Z34.83 Gestation period, 36 weeks 76028767 Z3A.36 [id number] Alvaro Angelo MD [facility] ([facility]) [address] [place] [address] [phone] 5 09/03/2025 10:32:59 09/03/2025 11:48:15 Multigravida 173720807 Z34.83 [id number] Gestation period, 37 weeks 38303046 Z3A.37 [id number] Giovani Yu MD [facility] ([facility]) [address] [place], [place] [address]-204 5 09/06/2025 07:58:00 09/11/2025 03:58:55 Adult health examination [id number] Z00.00 1789063 [id number] LISSETH SETHI [facility] ([facility]) [address] [place], [place] [address] 5 09/06/2025 07:58:35 09/11/2025 03:58:55 Physical examination 2164419 Z00.00 [id number] Alvaro Angelo MD [facility] ([facility]) [address] [place] [address] [phone] 5 09/10/2025 13:45:56 09/10/2025 14:47:57 Multigravida [id number] Z34.83 [id number] Gestation period, 38 weeks 78493336 Z3A.38 [id number] Alvaro Angelo MD [facility] ([facility]) [address] [place] [address] [phone] 5 09/17/2025 10:35:44 09/17/2025 11:14:06 Normal in multigravida [id number] Z34.80 10669286 Gestation period, 39 weeks 20523608 Z3A.39 8128516 [id number] Alvaro Angelo MD [facility] ([facility]) [address] [place] [address] [id number] 5 09/24/2025 10:36:35 09/24/2025 11:31:14 Normal 41809186 Z34.83 [id number] Gestation period, 40 weeks 76269365 Z3A.40 [id number] Health Concerns Section Related Observation LastModified by Organization Detai ls LastModified Time None Recorded Concern Status LastModified by Organization Details LastModified Time None Recorded Advance Directives Directive None Recorded Payers Insurance Date Sequence Insurance Name Policy Number Policy Fierro Covered Member ID Fierro Member ID Guarantor Name 10/22/2024 2 *SELF PAY* Chrissie Zimmerman 09/23/2025 1 [place] [id number] Jeffy Zimmerman [id number] Jeffy Reyes Erasmo 09/05/2024 1 U[employer] (EPO) [id number] Jeffy Galeano [id number] Jeffy Zimmerman 01/24/2023 1 [place] [id number] Jeffy Galeano [id number] Jeffy Zimmerman 01/24/2023 1 *SELF PAY* Chrissie Zimmerman Notes Date Note Type Note Provider Name and Address Organization Details Recorded Time 5 text/html ob routineReported by PatientHPIFor associated symptoms, patient reportscontractions (shira mata)andedema (hands,feet,legs)but reportsno abdominal pain,no cramping,normal movement,no bleeding,no vaginal discharge,no vaginal/vulvar itching or irritation,no dysuria,no frequency,no urgency,no hematuria,no fever,no nausea,no emesis,no constipation,no diarrhea/loose stool,no visual changes,no headache,no dizziness, andno breathlessness.heartburn / acid reflux with meals, back pain, vaginal pressureDenies any tobacco, nicotine, alcohol, or drug useROS as noted in the HPI Head and chest congestion, sore throat Alvaro Angelo MD [address] [place] [address], [phone], [facility] 09/10/2025 14:40:52 5 text/html ob routineReported by PatientHPIFor associated symptoms, patient reportsedema (hands,feet,legs)but reportsno abdominal pain,no cramping,no contractions,normal movement,no bleeding,no vaginal discharge,no vaginal/vulvar itching or irritation,no dysuria,no frequency,no urgency,no hematuria,no fever,no nausea,no emesis,no constipation,no diarrhea/loose stool,no visual changes,no headache,no dizziness, andno breathlessness.heartburn / acid reflux with meals, back pain, vaginal pressureDenies any tobacco, nicotine, alcohol, or drug useROS as noted in the HPI Alvaro Angelo MD [address] [place] [address], [phone], [facility] 09/17/2025 11:13:41 5 text/html ob routineReported by PatientHPIFor associated symptoms, patient reportscontractions (irreg)andedema (hands,feet,legs)but reportsno abdominal pain,no cramping,normal movement,no bleeding,no vaginal discharge,no vaginal/vulvar itching or irritation,no dysuria,no frequency,no urgency,no hematuria,no fever,no nausea,no emesis,no constipation,no diarrhea/loose stool,no visual changes,no headache,no dizziness, andno breathlessness.heartburn / acid reflux with meals, back pain, vaginal pressureDenies any tobacco, nicotine, alcohol, or drug useROS as noted in the HPI Alvaro Angelo MD [address] [place] [address], [phone], [facility] 09/24/2025 11:31:04 5 text/html jr ob routineReported by PatientHPIFor associated symptoms, patient reportscontractions (irreg),vaginal discharge, andedema (hands,feet,legs)but reportsno abdominal pain,no cramping,normal movement,no bleeding,no vaginal/vulvar itching or irritation,no dysuria,no frequency,no urgency,no hematuria,no fever,no nausea,no emesis,no constipation,no diarrhea/loose stool,no visual changes,no headache,no dizziness, andno breathlessness.vaginal pressure, pelvic pressure, low back painDenies any tobacco, nicotine, alcohol, or drug useROS as noted in the HPI Pt had an episode of leaking fluid from vagina. Pt unsure if water is broke Not Available Not Available Not Available OBGyn Episode Ob Episode Information Episode Created Date Number of Fetuses Patient Bloodtype Patient rh Status Prepregnancy Weight lbs Domestic Partner Domestic Partner Phone Father Name Rn Patient Services Status 01/25/20 25 1 O Positive Damián [...] Resolution Snomed Code Not e Normal 02/25/2025 [id number] Merrill Calculation Initial Merrill Date Initial Exam [...] Weight in lbs Pre/Post Dialysis Refused Weight 227.001375639721 BP Diastolic BP Location Tested BP Systolic [...] Weight in lbs Pre/Post Dialysis Refused Weight 221.682946849016 BP Diastolic BP Location Tested BP Systolic [...] Weight in lbs Pre/Post Dialysis Refused Weight 221.315976888074 BP Diastolic BP Location Tested BP Systolic [...] Weight in lbs Pre/Post Dialysis Refused Weight 225.763847254711 BP Diastolic BP Location Tested BP Systolic [...] Weight in lbs Pre/Post Dialysis Refused Weight 230.986767676357 BP Diastolic BP Location Tested BP Systolic BP Type 62 L arm 106 Fetus Heart Rate Present A 148 Present Fetus Movement A Yes Comments heartburn Flowsheet Date 06/18/2025 Sierra Score Blood Edema Fundus Height Fundus Units Glucose Ketones Leukocytes Nitrite Labor Signs Protein Cervic Dilation Cervic Effacement Cervic Station Type Weight in lbs Pre/Post Dialysis Refused Weight 229.3914301756 BP Diastolic BP Location Tested BP Systolic [...] Weight in lbs Pre/Post Dialysis Refused Weight 234.173740150361 BP Diastolic BP Location Tested BP Systolic [...] Weight in lbs Pre/Post Dialysis Refused Weight 232.588560915367 BP Diastolic BP Location Tested BP Systolic [...] Weight in lbs Pre/Post Dialysis Refused Weight 236.357608671032 BP Diastolic BP Location Tested BP Systolic BP Type 76 120 Fetus Heart Rate Present A 144 Present Fetus Movement A Yes Comments mild swelling, heartburn int ermittent Flowsheet Date 08/13/2025 Sierra Score Blood Edema Fundus Height Fundus Units Glucose Ketones Leukocytes Nitrite Labor Signs Protein Cervic Dilation Cervic Effacement Cervic Station 34 cm none trace [place] Mata neg Type Weight in lbs Pre/Post Dialysis Refused Weight 239.061625968185 BP Diastolic BP Location Tested BP Systolic [...] Weight in lbs Pre/Post Dialysis Refused Weight 241.633981228722 BP Diastolic BP Location Tested BP Systolic [...] Cervic Effacement Cervic Station none none Negative [place] Mata neg 2cm 70% -3 Type Weight in lbs Pre/Post Dialysis Refused Weight 241.329470107069 BP Diastolic BP Location Tested BP Systolic [...] Weight in lbs Pre/Post Dialysis Refused Weight 243.550681300759 BP Diastolic BP Location Tested BP Systolic BP Type 70 120 Fetus Heart Rate Present Fetus Movement Comments Flowsheet Date 09/10/2025 Sierra Score Blood Edema Fundus Height Fundus Units Glucose Ketones Leukocytes Nitrite Labor Signs Protein Cervic Dilation Cervic Effacement Cervic Station none trace Negative [place] Mata neg 2cm 70% -3 Type Weight in lbs Pre/Post Dialysis Refused Weight 243.164999989951 BP Diastolic BP Location Tested BP Systolic [...] Weight in lbs Pre/Post Dialysis Refused Weight 242.954005734252 BP Diastolic BP Location Tested BP Systolic BP Type 70 122 Fetus Heart Rate Present A 164 Present Fetus Movement A Yes Comments low back pain, vaginal press ure, swelling in hands/feet Flowsheet Date 09/24/2025 Sierra Score Blood Edema Fundus Height Fundus Units Glucose Ketones Leukocytes Nitrite Labor Signs Protein Cervic Dilation Cervic Effacement Cervic Station none 1+ Negative [place] Mata trace 3cm 70% -4 Type Weight in lbs Pre/Post Dialysis Refused Weight 244.101404046702 BP Diastolic BP Location Tested BP Systolic [...] Weight in lbs Pre/Post Dialysis Refused Weight 248.884356066662 BP Diastolic BP Location Tested BP Systolic [...] Estim ated Date of Delivery false Thalassemia (Romansh, Nigerien, Mediterranean, Or Background): MCV < 80 false Neural Tube Defect (Meningomyelocele, Spina Bifi da, Or Anencephaly) false Congenital Heart Defect false Down Syndrome false Maco-Sachs (eg, Roman Catholic, Cajun, Romanian-[place]) f alse Dustin Disease false Sickle Cell Disease Or Trait () false Hemophilia Or Other Blood Disorders false Muscular Dystrophy false Cystic Fibrosis false [place]'s Chorea false Intellectual Disability/Autism false If Yes, [...] Method Maternal HG B and HCT Levels Ob Episode Information Episode Created Date Number of Fetuses Patient Bloodtype Patient rh Status Prepregnancy Weight lbs Domestic Partner Domestic Partner Phone Father Name Rn Patient Services Status 01/25/20 25 1 CLOSED Fetus Data First Name Last Name Admitted to NICU Weight (g) Sex Living Outcome Pediatric Complications Fetus ID Race Codes Race Delivery Type M Full Term [id number] VAGINAL Merrill Calculation Initial Merrill Date Initial Exam Date Initial Exam Provider Initial Ultrasound Date Last Menstrual Period Date Ultra Sound Weeks Gestation 0 Eighteen To Twenty Week Merrill Update Ultra Sound Date Fundal Height At Umbil Quickening Date Ultra Sound Latest Weeks Gestation Final Merrill Confirmed By Final Merrill Confirmed Date Final Merrill Date Ultra Sound Latest Days Gestation 0 0 Menstrual History Last Menstrual Date Menses Monthly On Bcp Conception Prior Menses Frequency Hcg Plus Date Menarche Onset Age Delivery Information Delivery Date Delivery Type Labor Anesthesia Weeks Gestation Incision Type Labor Labor Length Hrs Delivered By Post Complications Tubal Sterilization Discharge Date Comments 5 Regional-Ep idural 38 spontane o us labor, AROM,pit Discharge Information Feeding Method Contraceptive Method Maternal HG B and HCT Levels
--- OUTSIDE RECORDS SUMMARY | 2025-09-25 15:05 | XMS_ITS | Continuity of Care Document ---
Author Organization [facility] Fabio Myers [facility] [place], [facility] ([facility]) Address [address] [place] [address] Assessment No assessment recorded. Plan of Treatment [...] YELLOW yellow normal Not Available [address] [address] [place], [address], 02/27/2025 22:28:50 02/27/2002/27/2025 URINA LYSIS , COMPL ETE appearance CLEAR clear normal Not Available [facility] [address] [address] [place], [address], 02/27/2025 22:28:50 02/27/20 25 02/27/2025 URINA LYSIS , COMPL ETE specific gravity 1.012 1.001- 1.035 normal Not Available [employer] [address] [address] [place], [address], 02/27/2025 22:28:50 02/27/20 25 02/27/2025 URINA LYSIS , COMPL ETE pH 7.5 5.0-8. 0 normal Not Available [address], [address], 02/27/2025 22:28:50 02/27/20 25 02/27/2025 URINA LYSIS , COMPL ETE glucose NEGATI VE negati ve normal Not Available [address], [address], 02/27/2025 22:28:50 02/27/20 25 02/27/2025 URINA LYSIS , COMPL ETE bilirubin NEGATI VE negati ve normal Not Available [address], [address], 02/27/2025 22:28:50 02/27/20 25 02/27/2025 URINA LYSIS , COMPL ETE ketones NEGATI VE negati ve normal Not Available [address], [address], 02/27/2025 22:28:50 02/27/20 25 02/27/2025 URINA LYSIS , COMPL ETE occult blood NEGATI VE negati ve normal Not Available [address], [address], 02/27/2025 22:28:50 02/27/20 25 02/27/2025 URINA LYSIS , COMPL ETE protein NEGATI VE negati ve normal Not Available [address], [address], 02/27/2025 22:28:50 02/27/20 25 02/27/2025 URINA LYSIS , COMPL ETE nitrite NEGATI VE negati ve normal Not Available [address], [address], 02/27/2025 22:28:50 02/27/20 25 02/27/2025 URINA LYSIS , COMPL ETE leukocyte esterase TRACE negati ve abnormal Not Available [address], [address], 02/27/2025 22:28:50 02/27/20 25 02/27/2025 URINA LYSIS , COMPL ETE WBC NONE SEEN /hpf < or = 5 normal Not Available [facility] [address], [address], 02/27/2025 22:28:50 02/27/20 25 02/27/2025 URINA LYSIS , COMPL ETE RBC NONE SEEN /hpf < or = 2 normal Not Available [facility] [address], [address], 02/27/2025 22:28:50 02/27/20 25 02/27/2025 URINA LYSIS , COMPL ETE squamous epithelial cells 6-10 /hpf < or = 5 abnormal Not Available [address], [address], 02/27/2025 22:28:50 02/27/20 25 02/27/2025 URINA LYSIS , COMPL ETE bacteria NONE SEEN /hpf none seen normal Not Available [address], [address], 02/27/2025 22:28:50 02/27/20 25 02/27/2025 URINA LYSIS , COMPL ETE hyaline cast NONE SEEN /lpf none seen normal Not Available [address], [address], 02/27/2025 22:28:50 02/27/20 25 02/27/2025 URINA LYSIS , COMPL ETE note This urine was jim zed for the prese nce of WBC, RBC, bacte terry, casts , and other forme d eleme nts. Only those eleme nts seen were repor bruce. Not Available [address], [address], 02/27/2025 22:28:50 02/27/20 25 02/27/2025 CBC (INCL UDES DIFF/ PLT) white blood cell count 8.9 thous and/u L 3.8-10 .8 normal Not Available [address], [address], 02/27/2025 22:28:51 02/27/20 25 02/27/2025 CBC (INCL UDES DIFF/ PLT) red blood cell count 4.42 erick on/uL 3.80-5 .10 normal Not Available [address], [address], 02/27/2025 22:28:51 02/27/20 25 02/27/2025 CBC (INCL UDES DIFF/ PLT) hemoglobin 13.2 g/dL 11.7-1 5.5 normal Not Available [address], [address], 02/27/2025 22:28:51 02/27/20 25 02/27/2025 CBC (INCL UDES DIFF/ PLT) hematocrit 41.4 % 35.0-4 5.0 normal Not Available [address], [address], 02/27/2025 22:28:51 02/27/20 25 02/27/2025 CBC (INCL UDES DIFF/ PLT) MCV 93.7 fL 80.0-1 00.0 normal Not Available [address], [address], 02/27/2025 22:28:51 02/27/20 25 02/27/2025 CBC (INCL UDES DIFF/ PLT) MCH 29.9 pg 27.0-3 3.0 normal Not Available [address], [address], 02/27/2025 22:28:51 02/27/20 25 02/27/2025 CBC (INCL [...] nt's clini rajiv condi tion. Not Available [address], [address], 02/27/2025 22:28:51 02/27/20 25 02/27/2025 CBC (INCL UDES DIFF/ PLT) RDW 12.5 % 11.0-1 5.0 normal Not Available [address], [address], 02/27/2025 22:28:51 02/27/20 25 02/27/2025 CBC (INCL UDES DIFF/ PLT) platelet count 294 thous and/u L 140-40 0 normal Not Available [facility] [address], [address], 02/27/2025 22:28:51 02/27/20 25 02/27/2025 CBC (INCL UDES DIFF/ PLT) MPV 11.6 fL 7.5-12 .5 normal Not Available [facility] [address], [address], 02/27/2025 22:28:51 02/27/20 25 02/27/2025 CBC (INCL UDES DIFF/ PLT) absolute neutrophils 6408 cells /uL 1500-7 800 normal Not Available [facility] [address], [address], 02/27/2025 22:28:51 02/27/20 25 02/27/2025 CBC (INCL UDES DIFF/ PLT) absolute lymphocytes 1833 cells /uL 850-39 00 normal Not Available [facility] [address], [place], [address], 02/27/2025 22:28:51 02/27/20 25 02/27/2025 CBC (INCL UDES DIFF/ PLT) absolute monocytes 481 cells /uL 200-95 0 normal Not Available [facility] [address], [address], 02/27/2025 22:28:51 02/27/20 25 02/27/2025 CBC (INCL UDES DIFF/ PLT) absolute eosinophils 151 cells /uL 15-500 normal Not Available [facility] [address], [address], 02/27/2025 22:28:51 02/27/20 25 02/27/2025 CBC (INCL UDES DIFF/ PLT) absolute basophils 27 cells /uL 0-200 normal Not Available [facility] [address], [address], 02/27/2025 22:28:51 02/27/20 25 02/27/2025 CBC (INCL UDES DIFF/ PLT) neutrophils 72 % normal Not Available [address], [address], 02/27/2025 22:28:51 02/27/20 25 02/27/2025 CBC (INCL UDES DIFF/ PLT) lymphocytes 20.6 % normal Not Available [facility] [address], [address], 02/27/2025 22:28:51 02/27/20 25 02/27/2025 CBC (INCL UDES DIFF/ PLT) monocytes 5.4 % normal Not Available [address], [address], 02/27/2025 22:28:51 02/27/20 25 02/27/2025 CBC (INCL UDES DIFF/ PLT) eosinophils 1.7 % normal Not Available [facility] [address] [place], [address], 02/27/2025 22:28:51 02/27/20 25 02/27/2025 CBC (INCL UDES DIFF/ PLT) basophils 0.3 % normal Not Available [address] [place], [address], 02/27/2025 22:28:51 02/27/20 25 02/27/2025 HEPAT ITIS B SURFA CE ANTIG EN W/REF L CONFI RM hepatitis B surface antigen NON-RE ACTIVE non-re active normal For addit ional infor mattodd n, pleas e refer to http: //[facility] cent[facility]odd n.que stdia gnost ics.c om/fa q/FAQ 202 (This link is being provi ded for infor matio nal/ educa jhonathan l purpo ses only. ) Not Available [facility] [address], [address], 02/27/2025 22:28:52 02/27/20 25 02/27/2025 HEPAT ITIS [...] a test for HCV RNA (test code 67519 ) is sugge sted. For addit ional infor matio n pleas e refer to http: //[facility] centertodd n.que stdia gnost ics.c om/fa q/FAQ 22v1 (This link is being provi ded for infor matio nal/ educa jhonathan l purpo ses only. ) Not Available [address] [address] [place], [address], 02/27/2025 22:28:53 02/27/20 25 02/27/2025 RUBEL LA [...] with rubel la virus . Not Available [employer] [facility] [address] [place] [address], [address], 02/27/2025 22:28:53 02/27/20 25 02/27/2025 HIV 1/2 [...] n pleas e refer to http: //[facility] stdia gnost ics.c om/fa q/FAQ 106 (This link is being provi ded for infor matio nal/ educa jhonathan l purpo ses only. ) The perfo rmanc e of this assay has not been clini solomon valid ated in patie nts less than 2 years old. Not Available [employer] [facility] [place], [address], 02/27/2025 22:28:54 02/27/20 25 02/27/2025 RPR (DX) W/REF L TITER AND T. PALLI DUM AB, IA RPR (DX) w/refl titer and confirmatory testing NON-RE ACTIVE non-re active normal No labor atory evide nce of syphi lis. If recen t expos ure is suspe cted, submi t a new sampl e in 2-4 weeks . Not Available [address], [address], 02/27/2025 22:28:55 02/27/20 25 02/27/2025 ANTIB MAICOL [...] alloi mmuni zed pregn benjamin. Not Available [address], [address], 02/27/2025 22:28:56 02/27/20 25 02/27/2025 ABO GROUP AND RH TYPE ABO group O Not Available [address], [address], 02/27/2025 22:28:57 02/27/20 25 02/27/2025 ABO GROUP AND RH TYPE Rh type RH(D) POSITI VE For addit ional infor sabrina roth refer to http: //divina Godfrey stDia gnost ics.c om/fa q/FAQ 111 (This link is being provi ded for infor amy trujillo/ educcatracho ring l purpo ses only. ) Not Available [address], [address], 02/27/2025 22:28:57 02/27/20 25 02/27/2025 DRUG MONIT OR, PANEL 1, SCREE N, URINE amphetamines NEGATI VE NG/mL <500 See Note A See Note A Not Available [facility] [address] [address] [address], [place], [address], 02/27/2025 22:28:58 02/27/20 25 02/27/2025 DRUG MONIT OR, PANEL 1, SCREE N, URINE barbiturates NEGATI VE NG/mL <300 See Note A See Note A Not Available [facility] [address] [address] [address], [place], [address], 02/27/2025 22:28:58 02/27/20 25 02/27/2025 DRUG MONIT OR, PANEL 1, SCREE N, URINE benzodiazepi duane NEGATI VE NG/mL <100 See Note A See Note A Not Available [facility] [address] [address] [address], [place], [address], 02/27/2025 22:28:58 02/27/20 25 02/27/2025 DRUG MONIT OR, PANEL 1, SCREE N, URINE cocaine metabolite NEGATI VE NG/mL <150 See Note A See Note A Not Available [facility] [address] [address] [address], [place], [address], 02/27/2025 22:28:58 02/27/20 25 02/27/2025 DRUG MONIT OR, PANEL 1, SCREE N, URINE marijuana metabolite NEGATI VE NG/mL <20 See Note A See Note A Not Available [facility] [address] [address] [address], [place], [address], 02/27/2025 22:28:58 02/27/20 25 02/27/2025 DRUG MONIT OR, PANEL 1, SCREE N, URINE methadone metabolite NEGATI VE NG/mL <100 See Note A See Note A Not Available [facility] [address] [address] [address], [place], [address], 02/27/2025 22:28:58 02/27/20 25 02/27/2025 DRUG MONIT OR, PANEL 1, SCREE N, URINE opiates NEGATI VE NG/mL <100 See Note A See Note A Not Available [address] [address] [address], [place], [address], 02/27/2025 22:28:58 02/27/20 25 02/27/2025 DRUG MONIT OR, PANEL 1, SCREE N, URINE oxycodone NEGATI VE NG/mL <100 See Note A See Note A Not Available [address] [address] [address], [place], [address], 02/27/2025 22:28:58 02/27/20 25 02/27/2025 DRUG MONIT OR, PANEL 1, SCREE N, URINE phencyclidin e NEGATI VE NG/mL <25 See Note A See Note A Not Available [address] [address] [address], [place], [address], 02/27/2025 22:28:58 02/27/20 25 02/27/2025 DRUG MONIT OR, PANEL 1, SCREE N, URINE creatinine 108.1 mg/dL > or = 20.0 Not Available [address] [address] [address], [place], [address], 02/27/2025 22:28:58 02/27/20 25 02/27/2025 DRUG MONIT OR, PANEL 1, SCREE N, URINE pH 7.7 4.5-9. 0 Not Available [address] [address] [address], [place], [address], 02/27/2025 22:28:58 02/27/20 25 02/27/2025 DRUG MONIT OR, PANEL 1, SCREE N, URINE oxidant NEGATI VE mcg/m L <200 Not Available [address] [address] [address], [place], [address], 02/27/2025 22:28:58 02/27/20 25 02/27/2025 DRUG MONIT [...] to 10pm EST Not Available [address] [address] [place], [address], 02/27/2025 22:28:59 02/27/2002/27/2025 CULTU RE, URINE , ROUTI NE culture, urine, routine SEE NOTE CULTU RE, URINE , ROUTI NE Micro Numbe r: [id number] Test Statu s: Final Speci men Sourc e: Urine Speci men Quali ty: Adequ ate Resul t: No Growt h Not Available [address] [address] [place], [address], 02/27/2025 22:28:59 02/27/20 25 03/08/2025 THINP REP TIS PAP (REFL ) HPV MRNA E6/E7 clinical information: normal Pregn ant Not Available [facility] [address] [address] [place], [address], 03/08/2025 08:16:51 02/27/20 25 03/08/2025 THINP REP TIS PAP (REFL ) HPV MRNA E6/E7 LMP: normal NONE GIVEN Not Available [facility] [address] [address] [place], [address], 03/08/2025 08:16:51 02/27/20 25 03/08/2025 THINP REP TIS PAP (REFL ) HPV MRNA E6/E7 prev. Pap: normal NONE GIVEN Not Available [address], [address], 03/08/2025 08:16:51 02/27/20 25 03/08/2025 THINP REP TIS PAP (REFL ) HPV MRNA E6/E7 prev. BX: normal NONE GIVEN Not Available [address] [place], [address], 03/08/2025 08:16:51 02/27/20 25 03/08/2025 THINP REP TIS PAP (REFL ) HPV MRNA E6/E7 source: normal Cervi x, Endoc ervix Not Available [address] [place], [address], 03/08/2025 08:16:51 02/27/2003/08/2025 THINP REP TIS PAP (REFL ) HPV MRNA E6/E7 statement of adequacy: normal Satis facto ry for evalu ation . Endoc ervic al/tr ansfo rmati on zone compo nent prese nt. Not Available [address], [address], 03/08/2025 08:16:51 02/27/2003/08/2025 THINP REP TIS PAP (REFL ) HPV MRNA E6/E7 general categorizati on: abnormal Cytol ogy Resul ts: Epith elial Cell Abnor malit y Not Available [address] [place], [address], 03/08/2025 08:16:51 02/27/2003/08/2025 THINP REP TIS PAP (REFL ) HPV MRNA E6/E7 interpretati on/result: abnormal Low Grade Squam ous Intra epith elial Lesio n (LSIL ) Not Available [address] [place], [address], 03/08/2025 08:16:51 02/27/20 25 03/08/2025 THINP REP TIS PAP (REFL ) HPV MRNA E6/E7 comment: normal This Pap test has been evalu ated with [employer]is[employer] mayen techn ology . Sugge st clini rajiv corre latio n and follo w-up as clini solomon appro priat e Not Available [address] [address] [place], [address], 03/08/2025 08:16:51 02/27/20 25 03/08/2025 THINP REP TIS PAP (REFL ) HPV MRNA E6/E7 cytotechnolo gist: normal KMS, CT( CP) CT Scree apt locat ion: [address] [address] [place] [address] Not Available [address] [address] [place], [address], 03/08/2025 08:16:51 02/27/20 25 03/08/2025 THINP REP TIS PAP (REFL ) HPV MRNA E6/E7 pathologist: normal Alisha monique M.D., Board Certi fied in [place] Patho logy and Cytop athol ogy. Phone : [phone] (elec troni c signa josé) Patho logis t Relea se Date/ Time: 03/06 09:25 AM Not Available [address] [address] [place], [address], 03/08/2025 08:16:51 02/27/20 25 03/08/2025 THINP REP [...] clini rajiv infor amy raphael. Not Available [facility] [address] [place], [address], 03/08/2025 08:16:51 02/27/20 25 03/08/2025 HPV MRNA [...] sabrina roth e refer to http: //[facility] raphael.patience stdia gnost ics.c om/fa q/FAQ 129v1 (This link if provi ded for infor amy raphael/ educcatracho ring l purpo ses only. ) Not Available [facility] [address] [place], [address], 03/08/2025 08:16:53 02/27/20 25 02/26/2025 CT + NG + TV, DNA, urine /swab Chlamydia negati ve Not Available [facility] ([facility]) [address] [place], [address], 02/25/2025 18:55:26 02/27/20 25 02/26/2025 CT + NG + TV, DNA, urine /swab Gonorrhea negati ve Not Available [facility] ([facility]) [address] [place], [address], 02/25/2025 18:55:26 02/27/2002/26/2025 CT + NG + TV, DNA, urine /swab Trichomonas negati ve Not Available [facility] ([facility]) [address] [place], [address], 02/25/2025 18:55:26 07/02/20 25 07/02/2025 CBC WBC 11.1 x10 4.0-10 .5 high Not Available [facility] [address] [facility] Nuria [facility] 1, [place], [address], 07/02/2025 10:24:57 07/02/20 25 07/02/2025 CBC RBC 3.96 x10 3.50-5 .50 Not Available [facility] [address] [facility] 1, [place], [address], 07/02/2025 10:24:57 07/02/20 25 07/02/2025 CBC HGB 12.0 g/dL 12.0-1 6.0 Not Available [facility] [address] [facility] 1, [place], [address], 07/02/2025 10:24:57 07/02/20 25 07/02/2025 CBC HCT 37.1 % 37.0-4 7.0 Not Available [facility] [address] [facility] 1, [place], [address], 07/02/2025 10:24:57 07/02/20 25 07/02/2025 CBC MCV 93.8 fL 80.0-9 9.9 Not Available [facility] [address] [facility] [address] [facility] 1, [place], [address], 07/02/2025 10:24:57 07/02/20 25 07/02/2025 CBC MCH 30.4 pg 27.0-3 2.0 Not Available [facility] [address] [facility] [address] [facility] 1, [place], [address], 07/02/2025 10:24:57 07/02/20 25 07/02/2025 CBC MCHC 32.4 g/dL 32.0-3 6.0 Not Available [facility] [address] [facility] 1, [place], [address], 07/02/2025 10:24:57 07/02/20 25 07/02/2025 CBC RDW 12.9 % 11.5-1 4.5 Not Available [facility] [address] [facility] 1, [place], [address], 07/02/2025 10:24:57 07/02/20 25 07/02/2025 CBC plt 227.7 x10 140.0- 451.0 Not Available [facility] [address] [facility] 1, [place], [address], 07/02/2025 10:24:57 07/02/20 25 07/02/2025 CBC lymphocytes % 15.5 % 20.0-5 0.0 low Not Available [facility] [address] [facility] Qu[facility] 1, [place], [address], 07/02/2025 10:24:57 07/02/20 25 07/02/2025 CBC granulcytes % 78.3 % 30.0-7 0.0 high Not Available [facility] [address] [facility] Qu[facility] 1, [place], [address], 07/02/2025 10:24:57 07/02/20 25 07/02/2025 CBC monocytes % 4.2 % 2.0-16 .0 Not Available [facility] [address] [facility] Qu[facility] 1, [place], [address], 07/02/2025 10:24:57 07/02/20 25 07/02/2025 CBC granulcytes# 8.7 x10 Not Jenny ilable [facility] [address], [place], [address], 07/02/2025 10:24:57 07/02/20 25 07/02/2025 CBC lymphocytes # 1.7 x10 Not Available [facility] [address] [facility] Qu[facility] 1, [place], [address], 07/02/2025 10:24:57 07/02/20 25 07/02/2025 CBC monocytes # 0.5 x10 Not Avai lable [facility] [address] [facility] 1, [place], [address], 07/02/2025 10:24:57 07/02/20 25 07/02/2025 GLUCO SE SCREE N glucose screen 135.0 mg/dL Not Available [facility] [address] [facility] 1, [place], [address], 07/02/2025 10:30:30 07/11/20 25 07/11/2025 GLUCO SE SCREE N glucose screen 133.0 mg/dL Not Available [facility] [address] [facility] Qu[facility] 1, [place], [address], 07/11/2025 10:37:03 02/19/20 25 02/12/2025 US, obste tric, 1st trime ster No observ ation record ed. [email or web address] Not Available 02/19 09:09:34 04/25/20 25 04/18/2025 US, obste tric, follo w-up No observ ation record ed. [facility] [address] [place], [address], 04/29/2025 09:24:34 05/11/20 25 05/07/2025 US, obste tric, 2nd trime ster No observ ation record ed. [facility] [address] [place], [address], 05/13/2025 17:57:21 07/05/20 25 07/02/2025 imagi ng/di agnos tic resul t No observ ation record ed. [facility] [address] [place], [address], 07/09/2025 10:35:54 Result Notes None recorded. Problems Name Problem SNOMED Code Status Onset Date Resolution Date Notes Provider Name and Address Organization Details Recorded Time Rheumatoid arthritis 48375630 Active 2022 KERWIN roper [facility]CR[facility]igio 5 14:16:25 Pain of knee region 2919900379 Completed 202301/24/2025 KERWIN roper [facility] 5 14:16:23 Family history of diabetes mellitus 438001661 Active 2023 KERWIN roper [facility] 5 14:16:18 Normal 00684441 Active 2024 ROXI NEULORENWAHailey PLUMMER null, [facility] 5 10:22:35 Normal 41073334 Active 2024 ROXI LANDISWAHailey PLUMMER null [facility] 5 10:22:35 Placenta previa partialis 89122133 Active 2024 Alvaro Angelo MD [address] [place], [address], [facility] 5 02:46:26 Low-lying placenta 528031106 Active 2024 Alvaro Angelo MD [address] [place], [address], [facility] 5 11:36:47 Problem Notes None recorded. Procedures Surgical History Date Name Laterality Status Provider Name and Address Organization Details Recorded Time 02/27/20 25 Date of Last Pap Smear completed [facility] [place] 09/02/2025 18:39:21 02/27/20 25 liquid based cervical cytology screening completed [facility] [place] 09/02/2025 18:39:54 01/31/20 24 colposcopy completed [facility], VikiLRemigioCRemigio 01/24/2025 14:17:49 01/31/20 24 hysteroscopy completed [facility], SaschaCRemigio 01/24/2025 14:18:46 arthroscopy of left knee joint completed [facility], [place] 01/24/2025 14:17:01 cholecystectomy completed [facility], LRemigioLRemigioCRemigio 01/24/2025 14:17:33 Imaging Results None recorded. Procedure Notes None recorded. Medical Equipment None Reported. Allergies Allergen ID Allergen Name Allergen Category Reaction Reaction Severity Criticality Documentation Date Start Date Code Code System Note Provider Name and Address Organization Details Recorded Time 62611 Bactrim medicatio n hives moderate Not available 05/21/2023 86030 9 RxNorm [facility] L[facility]CR[facility]igio 5 15:30:03 43413 Product containin g penicilli n (product) medicatio n hives moderate Not available 05/21/2023 73172 8001 SNOMED ROXI SHEARER [facility], VikiLRemigioCRemigio 5 15:30:03 36139 Augmentin medicatio n hives moderate Not available 01/24/2025 95806 2 RxNorm [facility], LRemigioLRemigioCRemigio 5 14:19:18 80442 Celebrex medicatio n other moderate Not available 01/24/2025 39274 7 RxNorm TREBA NEUSCHWAN KAVITHA [facility] 5 15:30:03 76508 Substance with sulfonami de structure and antibacte rial mechanism of action (substanc e) medicatio n hives moderate Not available 04/18/2025 49970 8003 SNOMED TREBA NEUSCHWAN KAVITHA [facility] 5 15:30:03 67015 amoxicill in / clavulana te medicatio n hives Not available [facility] 09/06/20252022 53612 RxNorm Yessy ates PCN and amoxi cilli n fine Not Available [employer] - prod 5 07:58:34 59995 celecoxib medicatio n Not available Not available [facility] 09/06/20252022 50996 7 RxNorm Not Available [employer] - prod 5 07:58:34 Medications [...] Organization Details Last Updated DateTime 170.18 cm 37 kg/m2 741095. 8 g 97 % 87 /min 18 /min 98.6 [degF] 120/76 mm[Hg] KERWIN DUNAWAY [facility] 11:17:22 Social History Question Answer Notes LastModified by Organizat ion Details LastModified Time Tobacco Smoking Status Former Smoker ANTONIO roper [facility] 01/24/2023 10:09:31 Are You Blind Or Do You Have Difficulty Seeing? No Information not available 01/24/2025 Are You Deaf Or Do You Have Serious Difficulty Hearing? No [email or web address] Information not available 01/24/2023 When Did You Quit Smoking? 1-5yearssinc elastcigaret te [id number] Information not available 01/24/2023 Do You Work In Healthcare? No Information not available 01/24/2025 What Was The Date Of Your Most Recent Tobacco Screening? 03/26/2025 [email or web address] Information not available 03/26/2025 What Is Your Relationship Status? Information not available 01/24/2025 Have You Recently Traveled Abroad? No [email or web address] Information not available 01/24/2023 Do You Have Difficulty Walking Or Climbing Stairs? No [email or web address] Information not available 01/24/2023 Sex: Unknown Functional [...] independently without assistance or assistive devices? YESWOREST [email or web address] Information not available 01/24/2023 Do you have difficulty doing errands alone? No [email or web address] Information not available 01/24/2023 Are you able to care for yourself independently? 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 No [email or web address] Information not available 01/24/2023 Do you or have you ever used e-cigarettes or vape? Former user of electronic cigarettes Information not available 01/24/2025 Mental Status Question Answer Note LastModified by Organization D etails LastModified Time Do you have difficulty concentrating, remembering or making decisions? No [email or web address] Information no t available 01/24/2023 Family History Relationship Description Onset Age of this Age Resolved Age Notes LastModified by Organization Details LastModified Time Father Diabetes mellitus [email or web address] Not available 2023 09:43:45 Paternal Grandmother Malignant [...] IPV 09/28/2000 completed Susan roper [facility] 10/09/2024 09:35:10 MMR 04/11/1996 completed Susan roper [facility] 10/09/2024 09:35:10 MMR 09/28/2000 completed Susan roper [facility] 10/09/2024 09:35:10 Tdap 11/17/2010 completed Susan roper [facility] 10/09/2024 09:35:10 Tdap 02/20/2015 kaushal roper [facility] 10/09/2024 09:35:10 Hep B, unspecified formulation 1995 completed Susan Wilson null, [facility] 10/09/2024 09:35:10 Hep B, unspecified formulation 02/28/1996 completed Susan Wilson null, [facility] 10/09/2024 09:35:10 Hep B, unspecified formulation 1995 completed Susan Wilson null, [facility], [...] ICD10 Code Diagnosis IMO Codes Diagnosis Note [id number] Alvaro Angelo MD [facility] ([facility]) [address] [place] [address] 07/02/2025 08:58:15 07/03/2025 12:00:14 [id number] Alvaro Angelo MD [facility] ([facility]) [address] [place] [address] 07/02/2025 08:58:47 07/04/2025 04:05:41 [id number] Alvaro Angelo MD [facility] ([facility]) [address] [place] [address] 07/02/2025 10:39:30 07/02/2025 11:45:25 Normal 98776093 Z34.83 [id number] Gestation period, 28 weeks [id number] Z3A.28 [id number] Alvaro Angelo MD [facility] ([facility]) [address] [place] [address] 07/16/2025 10:32:08 07/16/2025 11:40:01 Multigravida [id number] Z34.83 [id number] Gestation period, 30 weeks 77126022 Z3A.30 [id number] Alvaro Angelo MD [facility] ([facility]) [address] [place] [address] 07/30/2025 10:40:36 07/30/2025 11:28:24 Normal 94424932 Z34.83 Gestation period, 32 weeks [id number] Z3A.32 [id number] Health Concerns Section Related Observation LastModified by Organization Detai ls LastModified Time None Recorded Concern Status LastModified by Organization Details LastModified Time None Recorded Payers Encounter Date Sequence Insurance Name Policy Number Policy Fierro Covered Member ID Fierro Member ID Guarantor Name 07/30/2025 1 LANETTE (PPO) [id number] 3 Jeffy Zimmerman [id number] Jeffy Zimmerman Notes Date Note Type Note Provider Name and Address Organization Details Recorded Time 07/30/2025 text/html jr ob routineRep orted by PatientHPIFor associated symptoms, patient reportsedemabut reportsno abdominal pain,no cramping,no contractions,normal movement,no bleeding,no vaginal discharge,no vaginal/vulvar itching or irritation,no dysuria,no frequency,no urgency,no hematuria,no fever,no nausea,no emesis,no constipation,no diarrhea/loose stool,no visual changes,no headache,no dizziness, andno breathlessness.heartb urn/ acid reflux with meals,Denies any tobacco, nicotine, alcohol, or drug useROS as noted in the HPI Alvaro Angelo MD [address] [place] [address], [phone], [facility] 07/30/2025 11:27:24 OBGyn Episode Ob Episode Information Episode Created Date Number of Fetuses Patient Bloodtype Patient rh Status Prepregnancy Weight lbs Domestic Partner Domestic Partner Phone Father Name Sander Portable Machine Status 01/25/20 25 1 O Positive Damián [...] Resolution Snomed Code Not e Normal 02/25/2025 [id number] Merrill Calculation Initial Merrill Date Initial Exam [...] Weight in lbs Pre/Post Dialysis Refused Weight 227.813554617779 BP Diastolic BP Location Tested BP Systolic [...] Weight in lbs Pre/Post Dialysis Refused Weight 221.540771393581 BP Diastolic BP Location Tested BP Systolic [...] Weight in lbs Pre/Post Dialysis Refused Weight 221.215301658933 BP Diastolic BP Location Tested BP Systolic [...] Weight in lbs Pre/Post Dialysis Refused Weight 225.217772291919 BP Diastolic BP Location Tested BP Systolic [...] Weight in lbs Pre/Post Dialysis Refused Weight 230.441064962956 BP Diastolic BP Location Tested BP Systolic BP Type 62 L arm 106 Fetus Heart Rate Present A 148 Present Fetus Movement A Yes Comments heartburn Flowsheet Date 06/18/2025 Sierra Score Blood Edema Fundus Height Fundus Units Glucose Ketones Leukocytes Nitrite Labor Signs Protein Cervic Dilation Cervic Effacement Cervic Station Type Weight in lbs Pre/Post Dialysis Refused Weight 229.3981160794 BP Diastolic BP Location Tested BP Systolic [...] Weight in lbs Pre/Post Dialysis Refused Weight 234.909650634632 BP Diastolic BP Location Tested BP Systolic [...] Weight in lbs Pre/Post Dialysis Refused Weight 232.981174145724 BP Diastolic BP Location Tested BP Systolic [...] Weight in lbs Pre/Post Dialysis Refused Weight 236.762407819681 BP Diastolic BP Location Tested BP Systolic BP Type 76 120 Fetus Heart Rate Present A 144 Present Fetus Movement A Yes Comments mild swelling, heartburn int ermittent Flowsheet Date 08/13/2025 Sierra Score Blood Edema Fundus Height Fundus Units Glucose Ketones Leukocytes Nitrite Labor Signs Protein Cervic Dilation Cervic Effacement Cervic Station 34 cm none trace Frederick Garnett neg Type Weight in lbs Pre/Post Dialysis Refused Weight 239.275522443395 BP Diastolic BP Location Tested BP Systolic [...] Weight in lbs Pre/Post Dialysis Refused Weight 241.073765107259 BP Diastolic BP Location Tested BP Systolic [...] Cervic Effacement Cervic Station none none Negative Frederick Garnett neg 2cm 70% -3 Type Weight in lbs Pre/Post Dialysis Refused Weight 241.157948027045 BP Diastolic BP Location Tested BP Systolic [...] Weight in lbs Pre/Post Dialysis Refused Weight 243.359628740197 BP Diastolic BP Location Tested BP Systolic BP Type 70 120 Fetus Heart Rate Present Fetus Movement Comments Flowsheet Date 09/10/2025 Sierra Score Blood Edema Fundus Height Fundus Units Glucose Ketones Leukocytes Nitrite Labor Signs Protein Cervic Dilation Cervic Effacement Cervic Station none trace Negative Frederick Garnett neg 2cm 70% -3 Type Weight in lbs Pre/Post Dialysis Refused Weight 243.415308152417 BP Diastolic BP Location Tested BP Systolic [...] Weight in lbs Pre/Post Dialysis Refused Weight 242.081291639843 BP Diastolic BP Location Tested BP Systolic BP Type 70 122 Fetus Heart Rate Present A 164 Present Fetus Movement A Yes Comments low back pain, vaginal press ure, swelling in hands/feet Flowsheet Date 09/24/2025 Sierra Score Blood Edema Fundus Height Fundus Units Glucose Ketones Leukocytes Nitrite Labor Signs Protein Cervic Dilation Cervic Effacement Cervic Station none 1+ Negative Frederick Garnett trace 3cm 70% -4 Type Weight in lbs Pre/Post Dialysis Refused Weight 244.722789773776 BP Diastolic BP Location Tested BP Systolic [...] Weight in lbs Pre/Post Dialysis Refused Weight 248.058768124995 BP Diastolic BP Location Tested BP Systolic [...] Estim ated Date of Delivery false Thalassemia (Ukrainian, [place]ican, Mediterranean, Or Background): MCV < 80 false Neural Tube Defect (Meningomyelocele, Spina Bifi da, Or Anencephaly) false Congenital Heart Defect false Down Syndrome false Maco-Sachs (eg, Islam, Cajun, Russian-Seward) f alse Dustin Disease false Sickle Cell [...]
--- OUTSIDE RECORDS SUMMARY | 2025-09-25 15:05 | XMS_ITS | Continuity of Care Document ---
Author Organization [place] - Fabio [facility], [facility] ([facility]) Address [address] [place] [address] Assessment No assessment recorded. Plan of Treatment [...] ETE color YELLOW yellow normal Not Available [address] [address] [place], [address], 02/27/2025 22:28:50 02/27/2002/27/2025 URINA LYSIS , COMPL ETE appearance CLEAR clear normal Not Available [facility] [address] [address] [place], [address], 02/27/2025 22:28:50 02/27/20 25 02/27/2025 URINA LYSIS , COMPL ETE specific gravity 1.012 1.001- 1.035 normal Not Available [facility] [address] [address] [place], [address], 02/27/2025 22:28:50 02/27/20 25 02/27/2025 URINA LYSIS , COMPL ETE pH 7.5 5.0-8. 0 normal Not Available [address], [address], 02/27/2025 22:28:50 02/27/20 25 02/27/2025 URINA LYSIS , COMPL ETE glucose NEGATI VE negati ve normal Not Available [address], [address], 02/27/2025 22:28:50 02/27/20 25 02/27/2025 URINA LYSIS , COMPL ETE bilirubin NEGATI VE negati ve normal Not Available [address], [address], 02/27/2025 22:28:50 02/27/20 25 02/27/2025 URINA LYSIS , COMPL ETE ketones NEGATI VE negati ve normal Not Available [address], [address], 02/27/2025 22:28:50 02/27/20 25 02/27/2025 URINA LYSIS , COMPL ETE occult blood NEGATI VE negati ve normal Not Available [address], [address], 02/27/2025 22:28:50 02/27/20 25 02/27/2025 URINA LYSIS , COMPL ETE protein NEGATI VE negati ve normal Not Available [address], [address], 02/27/2025 22:28:50 02/27/20 25 02/27/2025 URINA LYSIS , COMPL ETE nitrite NEGATI VE negati ve normal Not Available [address], [address], 02/27/2025 22:28:50 02/27/20 25 02/27/2025 URINA LYSIS , COMPL ETE leukocyte esterase TRACE negati ve abnormal Not Available [address], [address], 02/27/2025 22:28:50 02/27/20 25 02/27/2025 URINA LYSIS , COMPL ETE WBC NONE SEEN /hpf < or = 5 normal Not Available [facility] [address], [address], 02/27/2025 22:28:50 02/27/20 25 02/27/2025 URINA LYSIS , COMPL ETE RBC NONE SEEN /hpf < or = 2 normal Not Available [facility] [address], [address], 02/27/2025 22:28:50 02/27/20 25 02/27/2025 URINA LYSIS , COMPL ETE squamous epithelial cells 6-10 /hpf < or = 5 abnormal Not Available [address], [address], 02/27/2025 22:28:50 02/27/20 25 02/27/2025 URINA LYSIS , COMPL ETE bacteria NONE SEEN /hpf none seen normal Not Available [address], [address], 02/27/2025 22:28:50 02/27/20 25 02/27/2025 URINA LYSIS , COMPL ETE hyaline cast NONE SEEN /lpf none seen normal Not Available [address], [address], 02/27/2025 22:28:50 02/27/20 25 02/27/2025 URINA LYSIS , COMPL ETE note This urine was jim zed for the prese nce of WBC, RBC, bacte terry, casts , and other forme d eleme nts. Only those eleme nts seen were repor bruce. Not Available [address], [address], 02/27/2025 22:28:50 02/27/20 25 02/27/2025 CBC (INCL UDES DIFF/ PLT) white blood cell count 8.9 thous and/u L 3.8-10 .8 normal Not Available [address], [address], 02/27/2025 22:28:51 02/27/20 25 02/27/2025 CBC (INCL UDES DIFF/ PLT) red blood cell count 4.42 erick on/uL 3.80-5 .10 normal Not Available [address], [address], 02/27/2025 22:28:51 02/27/20 25 02/27/2025 CBC (INCL UDES DIFF/ PLT) hemoglobin 13.2 g/dL 11.7-1 5.5 normal Not Available [address], [address], 02/27/2025 22:28:51 02/27/20 25 02/27/2025 CBC (INCL UDES DIFF/ PLT) hematocrit 41.4 % 35.0-4 5.0 normal Not Available [address], [address], 02/27/2025 22:28:51 02/27/20 25 02/27/2025 CBC (INCL UDES DIFF/ PLT) MCV 93.7 fL 80.0-1 00.0 normal Not Available [address], [address], 02/27/2025 22:28:51 02/27/20 25 02/27/2025 CBC (INCL UDES DIFF/ PLT) MCH 29.9 pg 27.0-3 3.0 normal Not Available [address], [address], 02/27/2025 22:28:51 02/27/20 25 02/27/2025 CBC (INCL [...] nt's clini rajiv condi tion. Not Available [address], [address], 02/27/2025 22:28:51 02/27/20 25 02/27/2025 CBC (INCL UDES DIFF/ PLT) RDW 12.5 % 11.0-1 5.0 normal Not Available [address], [address], 02/27/2025 22:28:51 02/27/20 25 02/27/2025 CBC (INCL UDES DIFF/ PLT) platelet count 294 thous and/u L 140-40 0 normal Not Available [facility] [address], [address], 02/27/2025 22:28:51 02/27/20 25 02/27/2025 CBC (INCL UDES DIFF/ PLT) MPV 11.6 fL 7.5-12 .5 normal Not Available [facility] [address], [address], 02/27/2025 22:28:51 02/27/20 25 02/27/2025 CBC (INCL UDES DIFF/ PLT) absolute neutrophils 6408 cells /uL 1500-7 800 normal Not Available [facility] [address], [address], 02/27/2025 22:28:51 02/27/20 25 02/27/2025 CBC (INCL UDES DIFF/ PLT) absolute lymphocytes 1833 cells /uL 850-39 00 normal Not Available [facility] [address], [place], [address], 02/27/2025 22:28:51 02/27/20 25 02/27/2025 CBC (INCL UDES DIFF/ PLT) absolute monocytes 481 cells /uL 200-95 0 normal Not Available [facility] [address], [address], 02/27/2025 22:28:51 02/27/20 25 02/27/2025 CBC (INCL UDES DIFF/ PLT) absolute eosinophils 151 cells /uL 15-500 normal Not Available [facility] [address], [address], 02/27/2025 22:28:51 02/27/20 25 02/27/2025 CBC (INCL UDES DIFF/ PLT) absolute basophils 27 cells /uL 0-200 normal Not Available [facility] [address], [address], 02/27/2025 22:28:51 02/27/20 25 02/27/2025 CBC (INCL UDES DIFF/ PLT) neutrophils 72 % normal Not Available [address], [address], 02/27/2025 22:28:51 02/27/20 25 02/27/2025 CBC (INCL UDES DIFF/ PLT) lymphocytes 20.6 % normal Not Available [facility] [address], [address], 02/27/2025 22:28:51 02/27/20 25 02/27/2025 CBC (INCL UDES DIFF/ PLT) monocytes 5.4 % normal Not Available [address], [address], 02/27/2025 22:28:51 02/27/20 25 02/27/2025 CBC (INCL UDES DIFF/ PLT) eosinophils 1.7 % normal Not Available [facility] [address] [place], [address], 02/27/2025 22:28:51 02/27/20 25 02/27/2025 CBC (INCL UDES DIFF/ PLT) basophils 0.3 % normal Not Available [address] [place], [address], 02/27/2025 22:28:51 02/27/20 25 02/27/2025 HEPAT ITIS B SURFA CE ANTIG EN W/REF L CONFI RM hepatitis B surface antigen NON-RE ACTIVE non-re active normal For addit ional infor mattodd n, pleas e refer to http: //[facility] cent[facility] n.que stdia gnost ics.c om/fa q/FAQ 202 (This link is being provi ded for infor matio nal/ educa jhonathan l purpo ses only. ) Not Available [facility] [address], [address], 02/27/2025 22:28:52 02/27/20 25 02/27/2025 HEPAT ITIS [...] a test for HCV RNA (test code 02859 ) is sugge sted. For addit ional infor matio n pleas e refer to http: //[facility] centertodd n.que stdia gnost ics.c om/fa q/FAQ 22v1 (This link is being provi ded for infor matio nal/ educa jhonathan l purpo ses only. ) Not Available [address] [address] [place], [address], 02/27/2025 22:28:53 02/27/20 25 02/27/2025 RUBEL LA [...] with rubel la virus . Not Available [facility] [address] [place] [address], [address], 02/27/2025 22:28:53 02/27/20 25 02/27/2025 HIV 1/2 [...] matio n pleas e refer to http: //[facility] hayley godfrey stdia gnost ics.c om/fa q/FAQ 106 (This link is being provi ded for infor matio nal/ educa jhonathan l purpo ses only. ) The perfo rmanc e of this assay has not been clini solomon valid ated in patie nts less than 2 years old. Not Available [facility] - [address], [address], 02/27/2025 22:28:54 02/27/20 25 02/27/2025 RPR (DX) W/REF L TITER AND T. PALLI DUM AB, IA RPR (DX) w/refl titer and confirmatory testing NON-RE ACTIVE non-re active normal No labor atory evide nce of syphi lis. If recen t expos ure is suspe cted, submi t a new sampl e in 2-4 weeks . Not Available [address], [address], 02/27/2025 22:28:55 02/27/20 25 02/27/2025 ANTIB EFREN [...] alloi mmuni zed pregn benjamin. Not Available [address], [address], 02/27/2025 22:28:56 02/27/20 25 02/27/2025 ABO GROUP AND RH TYPE ABO group O Not Available [address], [address], 02/27/2025 22:28:57 02/27/20 25 02/27/2025 ABO GROUP AND RH TYPE Rh type RH(D) POSITI VE For addit ional infor sabrina roth refer to http: //divina Godfrey stDia gnost ics.c om/fa q/FAQ 111 (This link is being provi ded for infor amy trujillo/ educcatracho ring l purpo ses only. ) Not Available [address], [address], 02/27/2025 22:28:57 02/27/20 25 02/27/2025 DRUG MONIT OR, PANEL 1, SCREE N, URINE amphetamines NEGATI VE NG/mL <500 See Note A See Note A Not Available [facility] [address] [address] [address], [place], [address], 02/27/2025 22:28:58 02/27/20 25 02/27/2025 DRUG MONIT OR, PANEL 1, SCREE N, URINE barbiturates NEGATI VE NG/mL <300 See Note A See Note A Not Available [facility] [address] [address] [address], [place], [address], 02/27/2025 22:28:58 02/27/20 25 02/27/2025 DRUG MONIT OR, PANEL 1, SCREE N, URINE benzodiazepi duane NEGATI VE NG/mL <100 See Note A See Note A Not Available [facility] [address] [address] [address], [place], [address], 02/27/2025 22:28:58 02/27/20 25 02/27/2025 DRUG MONIT OR, PANEL 1, SCREE N, URINE cocaine metabolite NEGATI VE NG/mL <150 See Note A See Note A Not Available [facility] [address] [address] [address], [place], [address], 02/27/2025 22:28:58 02/27/20 25 02/27/2025 DRUG MONIT OR, PANEL 1, SCREE N, URINE marijuana metabolite NEGATI VE NG/mL <20 See Note A See Note A Not Available [facility] [address] [address] [address], [place], [address], 02/27/2025 22:28:58 02/27/20 25 02/27/2025 DRUG MONIT OR, PANEL 1, SCREE N, URINE methadone metabolite NEGATI VE NG/mL <100 See Note A See Note A Not Available [facility] [address] [address] [address], [place], [address], 02/27/2025 22:28:58 02/27/20 25 02/27/2025 DRUG MONIT OR, PANEL 1, SCREE N, URINE opiates NEGATI VE NG/mL <100 See Note A See Note A Not Available [address] [address] [address], [place], [address], 02/27/2025 22:28:58 02/27/20 25 02/27/2025 DRUG MONIT OR, PANEL 1, SCREE N, URINE oxycodone NEGATI VE NG/mL <100 See Note A See Note A Not Available [address] [address] [address], [place], [address], 02/27/2025 22:28:58 02/27/20 25 02/27/2025 DRUG MONIT OR, PANEL 1, SCREE N, URINE phencyclidin e NEGATI VE NG/mL <25 See Note A See Note A Not Available [address] [address] [address], [place], [address], 02/27/2025 22:28:58 02/27/20 25 02/27/2025 DRUG MONIT OR, PANEL 1, SCREE N, URINE creatinine 108.1 mg/dL > or = 20.0 Not Available [address] [address] [address], [place], [address], 02/27/2025 22:28:58 02/27/20 25 02/27/2025 DRUG MONIT OR, PANEL 1, SCREE N, URINE pH 7.7 4.5-9. 0 Not Available [address] [address] [address], [place], [address], 02/27/2025 22:28:58 02/27/20 25 02/27/2025 DRUG MONIT OR, PANEL 1, SCREE N, URINE oxidant NEGATI VE mcg/m L <200 Not Available [address] [address] [address], [place], [address], 02/27/2025 22:28:58 02/27/20 25 02/27/2025 DRUG MONIT [...] M-F, 8am to 10pm EST Not Available [address] [address] [place], [address], 02/27/2025 22:28:59 02/27/2002/27/2025 CULTU RE, URINE , ROUTI NE culture, urine, routine SEE NOTE CULTU RE, URINE , ROUTI NE Micro Numbe r: [id number] Test Statu s: Final Speci men Sourc e: Urine Speci men Quali ty: Adequ ate Resul t: No Growt h Not Available [address] [address] [place], [address], 02/27/2025 22:28:59 02/27/20 25 03/08/2025 THINP REP TIS PAP (REFL ) HPV MRNA E6/E7 clinical information: normal Pregn ant Not Available [facility] [address] [address] [place], [address], 03/08/2025 08:16:51 02/27/20 25 03/08/2025 THINP REP TIS PAP (REFL ) HPV MRNA E6/E7 LMP: normal NONE GIVEN Not Available [facility] [address] [address] [place], [address], 03/08/2025 08:16:51 02/27/20 25 03/08/2025 THINP REP TIS PAP (REFL ) HPV MRNA E6/E7 prev. Pap: normal NONE GIVEN Not Available [address], [address], 03/08/2025 08:16:51 02/27/20 25 03/08/2025 THINP REP TIS PAP (REFL ) HPV MRNA E6/E7 prev. BX: normal NONE GIVEN Not Available [address] [place], [address], 03/08/2025 08:16:51 02/27/20 25 03/08/2025 THINP REP TIS PAP (REFL ) HPV MRNA E6/E7 source: normal Cervi x, Endoc ervix Not Available [address] [place], [address], 03/08/2025 08:16:51 02/27/2003/08/2025 THINP REP TIS PAP (REFL ) HPV MRNA E6/E7 statement of adequacy: normal Satis facto ry for evalu ation . Endoc ervic al/tr ansfo rmati on zone compo nent prese nt. Not Available [address], [address], 03/08/2025 08:16:51 02/27/2003/08/2025 THINP REP TIS PAP (REFL ) HPV MRNA E6/E7 general categorizati on: abnormal Cytol ogy Resul ts: Epith elial Cell Abnor malit y Not Available [address] [place], [address], 03/08/2025 08:16:51 02/27/2003/08/2025 THINP REP TIS PAP (REFL ) HPV MRNA E6/E7 interpretati on/result: abnormal Low Grade Squam ous Intra epith elial Lesio n (LSIL ) Not Available [address] [place], [address], 03/08/2025 08:16:51 02/27/20 25 03/08/2025 THINP REP TIS PAP (REFL ) HPV MRNA E6/E7 comment: normal This Pap test has been evalu ated with [employer] o[employer] . Sugge st clini rajiv corre latio n and follo w-up as clini sloomon appro priat e Not Available [address] [address] [place], [address], 03/08/2025 08:16:51 02/27/20 25 03/08/2025 THINP REP TIS PAP (REFL ) HPV MRNA E6/E7 cytotechnolo gist: normal KMS, CT( CP) CT Scree pat locat ion: [address] [address] [place] [address] Not Available [address] [address] [place], [address], 03/08/2025 08:16:51 02/27/20 25 03/08/2025 THINP REP TIS PAP (REFL ) HPV MRNA E6/E7 pathologist: normal Alisha monique M.D., Board Certi fied in [place]ato jesús Patho logy and Cytop athol ogy. Phone : [phone] (elec troni c signa josé) Patho logis t Relea se Date/ Time: 03/06 09:25 AM Not Available [address] [address] [place], [address], 03/08/2025 08:16:51 02/27/20 25 03/08/2025 THINP REP [...] facto ry sampl e, regul jamaal obtai naa, is submi tted with relev ant clini rajiv findi ngs and histo ry, and when the Pap resul t is evalu ated along with histo kierra and curre nt clini rajiv infor amy raphael. Not Available [facility] [address] [place], [address], 03/08/2025 08:16:51 02/27/20 25 03/08/2025 HPV MRNA [...] infor sabrina roth e refer to http: //[facility] hayley raphael.patience stdia gnost ics.c om/fa q/FAQ 129v1 (This link if provi ded for infor amy raphael/ educcatracho ring l purpo ses only. ) Not Available [facility] [address] [place], [address], 03/08/2025 08:16:53 02/27/20 25 02/26/2025 CT + NG + TV, DNA, urine /swab Chlamydia negati ve Not Available [facility] ([facility]) [address] [place], [address], 02/25/2025 18:55:26 02/27/20 25 02/26/2025 CT + NG + TV, DNA, urine /swab Gonorrhea negati ve Not Available [facility] ([facility]) [address] [place], [address], 02/25/2025 18:55:26 02/27/2002/26/2025 CT + NG + TV, DNA, urine /swab Trichomonas negati ve Not Available [facility] ([facility]) [address] [place], [address], 02/25/2025 18:55:26 07/02/20 25 07/02/2025 CBC WBC 11.1 x10 4.0-10 .5 high Not Available [facility] [address] [facility] [address] [address], [place], [address], 07/02/2025 10:24:57 07/02/20 25 07/02/2025 CBC RBC 3.96 x10 3.50-5 .50 Not Available [facility] [address] [facility] [address], [place], [address], 07/02/2025 10:24:57 07/02/20 25 07/02/2025 CBC HGB 12.0 g/dL 12.0-1 6.0 Not Available [facility] [address] [facility], [place], [address], 07/02/2025 10:24:57 07/02/20 25 07/02/2025 CBC HCT 37.1 % 37.0-4 7.0 Not Available [facility] [address] [facility] [address], [place], [address], 07/02/2025 10:24:57 07/02/20 25 07/02/2025 CBC MCV 93.8 fL 80.0-9 9.9 Not Available [facility] [address] [facility] [address], [place], [address], 07/02/2025 10:24:57 07/02/20 25 07/02/2025 CBC MCH 30.4 pg 27.0-3 2.0 Not Available [facility] [address] [facility] 1, [place], [address], 07/02/2025 10:24:57 07/02/20 25 07/02/2025 CBC MCHC 32.4 g/dL 32.0-3 6.0 Not Available [facility] [address] Felisha Quiñones [facility] 1, [place], [address], 07/02/2025 10:24:57 07/02/20 25 07/02/2025 CBC RDW 12.9 % 11.5-1 4.5 Not Available [facility] [address] [facility] 1, [place], [address], 07/02/2025 10:24:57 07/02/20 25 07/02/2025 CBC plt 227.7 x10 140.0- 451.0 Not Available [facility] [address] [facility], [place], [address], 07/02/2025 10:24:57 07/02/20 25 07/02/2025 CBC lymphocytes % 15.5 % 20.0-5 0.0 low Not Available [facility] [address] [facility], [place], [address], 07/02/2025 10:24:57 07/02/20 25 07/02/2025 CBC granulcytes % 78.3 % 30.0-7 0.0 high Not Available [facility] [address] [facility] 1, [place], [address], 07/02/2025 10:24:57 07/02/20 25 07/02/2025 CBC monocytes % 4.2 % 2.0-16 .0 Not Available [facility] [address] [facility] 1, [place], [address], 07/02/2025 10:24:57 07/02/20 25 07/02/2025 CBC granulcytes# 8.7 x10 Not Jenny ilable [facility] [address] [facility], [place], [address], 07/02/2025 10:24:57 07/02/20 25 07/02/2025 CBC lymphocytes # 1.7 x10 Not Available [facility] [address] [facility] [address], [place], [address], 07/02/2025 10:24:57 07/02/20 25 07/02/2025 CBC monocytes # 0.5 x10 Not Avai lable [facility] [address] [facility] 1, [place], [address], 07/02/2025 10:24:57 07/02/20 25 07/02/2025 GLUCO SE SCREE N glucose screen 135.0 mg/dL Not Available [facility] [address] [facility] [address], [place], [address], 07/02/2025 10:30:30 07/11/20 25 07/11/2025 GLUCO SE SCREE N glucose screen 133.0 mg/dL Not Available [facility] [address] [facility] 1, [place], [address], 07/11/2025 10:37:03 08/27/20 25 09/02/2025 CULTU RE, GROUP B STREP WITH SUSCE PTIBI LITY culture, group B strep with susceptibili ty SEE NOTE abnormal CULTU RE, GROUP B STREP WITH SUSCE PTIBI LITY Micro Numbe r: [id number] Test Statu s: Final Speci men Sourc e: Vagin al/an orect al Speci men Quali ty: Adequ ate Resul t: Group B Strep tococ cus isola bruce This isola te demon strat es induc ible clind amyci n resis tance . Note per CDC guide lines optim al recov catarino is achie viniico by swabb ing both the lower vagin [...] See Thera py Comme nts Not Available [facility] [address] [address], [place], [address], 09/02/2025 14:26:34 02/19/20 25 02/12/2025 US, obste tric, 1st trime ster No observ ation record ed. [email or web address] Not Available 02/19 09:09:34 04/25/20 25 04/18/2025 US, obste tric, follo w-up No observ ation record ed. [facility] [address] [place], [address], 04/29/2025 09:24:34 05/11/20 25 05/07/2025 US, obste tric, 2nd trime ster No observ ation record ed. [facility] [address] [place], [address], 05/13/2025 17:57:21 07/05/20 25 07/02/2025 imagi ng/di agnos tic resul t No observ ation record ed. [facility] [address] [place], [address], 07/09/2025 10:35:54 Result Notes None recorded. Problems Name Problem SNOMED Code Status Onset Date Resolution Date Notes Provider Name and Address Organization Details Recorded Time Rheumatoid arthritis 80479401 Active 2022 HILTON Fu - [facility], [place] 14:16:25 Pain of knee region 0413701904 Completed 202301/24/2025 KERWIN roper [facility] L.L.CRemigio 5 14:16:23 Family history of diabetes mellitus 744829671 Active 2023 KERWIN roper [facility], LRemigioL.CRemigio 5 14:16:18 Normal 53405207 Active 2024 ROXI PLUMMER null, [facility], L.L.CRemigio 5 10:22:35 Normal 05277775 Active 2024 ROXI PLUMMER null, [facility], LRemigioL.CRemigio 5 10:22:35 Placenta previa partialis 85484809 Active 2024 Alvaro Angelo MD [address] [place] [address], [phone], [facility], VikiL.CRemigio 02:46:26 Low-lying placenta 566792566 Active 2024 Alvaro Angelo MD [address] [place] [address], [phone], [facility], VikiLRemigioCRemigio 11:36:47 Problem Notes None recorded. Procedures Surgical History Date Name Laterality Status Provider Name and Address Organization Details Recorded Time 02/27/20 25 Date of Last Pap Smear completed KERWIN DUNAWAY [facility], L.L.CRemigio 09/02/2025 18:39:21 02/27/20 25 liquid based cervical cytology screening [facility] 09/02/2025 18:39:54 01/31/20 24 [facility] 01/24/2025 14:17:49 01/31/20 24 hysteroscopy completed [facility], LRemigioL.CRemigio 01/24/2025 14:18:46 arthroscopy of left knee joint completed KERWIN DUNAWAY [facility], LRemigioLRemigioCRemigio 01/24/2025 14:17:01 cholecystectomy completed KERWIN DUNAWAY [facility], LRemigioLRemigioCRemigio 01/24/2025 14:17:33 Imaging Results None recorded. Procedure Notes None recorded. Medical Equipment None Reported. Allergies Allergen ID Allergen Name Allergen Category Reaction Reaction Severity Criticality Documentation Date Start Date Code Code System Note Provider Name and Address Organization Details Recorded Time 05348 Bactrim medicatio n hives moderate Not available 05/21/2023 00638 9 RxNorm TREJOSE RAUL Vang [facility], LRemigioLRemigioCRemigio 15:30:03 23804 Product containin g penicilli n (product) medicatio n hives moderate Not available 05/21/2023 65612 8001 SNOMED [facility] 15:30:03 11420 Augmentin medicatio n hives moderate Not available 01/24/2025 92158 2 RxNorm [facility]WIN DUNAWAY [facility] 14:19:18 61873 Celebrex medicatio n other moderate Not available 01/24/2025 47919 7 RxNorm TREBA MANFRED Vang [facility] 15:30:03 58975 Substance with sulfonami de structure and antibacte rial mechanism of action (substanc e) medicatio n hives moderate Not available 04/18/2025 41315 8003 SNOMED TREJOSE RAUL SHEARER KAVITHA [facility] 15:30:03 34086 amoxicill in / clavulana te medicatio n hives Not available high 09/06/20252022 07070 RxNorm Yessy ates PCN and amoxi cilli n fine Not Available [facility] - External Data Service - prod 5 07:58:34 24720 celecoxib medicatio n Not available Not available high 09/06/20252022 26481 7 RxNorm Not Available [facility] External Data Service - [facility] 5 07:58:34 Medications Name Sig Start [...] Details Last Updated DateTime 5 170.18 cm 37.8 kg/m2 809830. 86 g 99 % 93 /min 18 /min 98.9 [degF] 122/74 mm[Hg] ROXI PLUMMER [facility] 5 11:23:29 Social History Question Answer Notes LastModified by [employer] ion Details LastModified Time Tobacco Smoking Status Former Smoker ANTONIO roper, [facility] 01/24/2023 10:09:31 Are You Blind Or Do You Have Difficulty Seeing? No Information not available 01/24/2025 Are You Deaf Or Do You Have Serious Difficulty Hearing? No [id number] Information not available 01/24/2023 When Did You Quit Smoking? 1-5yearssinc elastcigaret te [id number] Information not available 01/24/2023 Do You Work In Healthcare? No Information not available 01/24/2025 What Was The Date Of Your Most Recent Tobacco Screening? 03/26/2025 [email or web address] Information not available 03/26/2025 What Is Your Relationship Status? Information not available 01/24/2025 Have You Recently Traveled Abroad? No [email or web address] Information not available 01/24/2023 Do You Have Difficulty Walking Or Climbing Stairs? No [email or web address] Information not available 01/24/2023 Sex: Unknown Functional [...] independently without assistance or assistive devices? YESWOREST [email or web address] Information not available 01/24/2023 Do you have difficulty doing errands alone? No [email or web address] Information not available 01/24/2023 Are you able to care for yourself independently? 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 No [email or web address] Information not available 01/24/2023 Do you or have you ever used e-cigarettes or vape? Former user of electronic cigarettes Information not available 01/24/2025 Mental Status Question Answer Note LastModified by Organization D etails LastModified Time Do you have difficulty concentrating, remembering or making decisions? No [email or web address] Information no t available 01/24/2023 Family History Relationship Description Onset Age of this Age Resolved Age Notes LastModified by Organization Details LastModified Time Father Diabetes mellitus [email or web address] Not available 2023 09:43:45 Paternal Grandmother Malignant neoplasm of ovary [email or web address] Not available 10:54:13 Notes:Cancer Maternal Grandf ather: Brain Cancer Paternal Grandmother: Ovarian Cancer Medical History Condition Response Coronary Artery Disease N Gout N Other N Kidney Stones N Blood Diseases N Hyperthyroidism N Blood Transfusion N Breast Cancer N COPD N Hypothyroidism N Lung Disease N Depression N Defects or Inherited Disease N Developmental or Behavioral Disorders N Breast Problem N Difficulty Swallowing N Anesthesia Complications N Anxiety Disorder N Meniere's disease N Muscle, Joint, or Bone Problems Y Vision or Eye Problems N Arthritis N Infertility N Polyps N Cancer N Stroke N Varicosities N Endometriosis N Bladder or Kidney Problems [...] Details Recorded Time IPV 09/28/2000 completed Susan roper, [facility] 10/09/2024 09:35:10 [facility]11[facility]/09/2024 09:35:10 MMR 09/28/2000 [facility] 10/09/2024 09:35:10 Tdap 11/17/2010 completed [facility] 10/09/2024 09:35:10 Tdap 02/20/2015 [facility] 10/09/2024 09:35:10 Hep B, unspecified formulation 1995 [facility] 10/09/2024 09:35:10 Hep B, unspecified formulation 02/28/1996 completed [facility] 10/09/2024 09:35:10 Hep B, unspecified formulation 1995 completed Susan roper [facility] 10/09/2024 09:35:10 OPV, trivalent 1995 completed Susan roper [facility] [...] ICD10 Code Diagnosis IMO Codes Diagnosis Note [id number] Alvaro Angelo MD [facility] ([facility]) [address] [place] [id number] 08/13/2025 10:44:33 08/13/2025 11:38:15 Normal 94538649 Z34.83 Gestation period, 34 weeks 17111712 Z3A.34 [id number] Alvaro Angelo MD [facility] ([facility]) [address] [place] [phone] 08/27/2025 10:35:57 08/27/2025 11:34:41 Normal 45482821 Z34.83 Gestation period, 36 weeks 85974610 Z3A.36 [id number] Alvaro Angelo MD [facility] ([facility]) [address] [place] [address] 09/03/2025 10:32:59 09/03/2025 11:48:15 Multigravida 868644662 Z34.83 [id number] Gestation period, 37 weeks 12398070 Z3A.37 [id number] Health Concerns Section Related Observation LastModified by Organization Detai ls LastModified Time None Recorded Concern Status LastModified by Organization Details LastModified Time None Recorded Payers Encounter Date Sequence Insurance Name Policy Number Policy Fierro Covered Member ID Fierro Member ID Guarantor Name 09/03/2025 1 [place] [id number] Jeffy Zimmerman [id number] Jeffy Zimmerman Notes Date Note Type Note Provider Name and Address Organization Details Recorded Time 5 text/html jr ob routineReported by PatientHPIFor associated symptoms, patient reportscontractions (michael mata),bleeding (2 days ago and only when she wiped), andedema (hands)but reportsno abdominal pain,no cramping,normal movement,no vaginal discharge,no vaginal/vulvar itching or irritation,no dysuria,no frequency,no urgency,no hematuria,no fever,no nausea,no emesis,no constipation,no diarrhea/loose stool,no visual changes,no headache,no dizziness, andno breathlessness.heartburn / acid reflux with mealsDenies any tobacco, nicotine, alcohol, or drug useROS as noted in the HPI Alvaro Angelo MD [address] [place] [address], [phone], [facility] 09/03/2025 11:46:17 OBGyn Episode Ob Episode Information Episode Created Date Number of Fetuses Patient Bloodtype Patient rh Status Prepregnancy Weight lbs Domestic Partner Domestic Partner Phone Father Name Cylinder Steamer Status 01/25/20 25 1 O Positive Damián ROBLES Fetus Data First Name Last Name Admitted to NICU Weight (g) Sex Living Outcome Pediatric Complications Fetus ID Race Codes Race Delivery Type [id number] Problems Problem Notes 07/30/25- pt declined TDaP an d RSV injectionGroup B Strep Positive - Use ancefInduction set for saturday 09/29 Problem Name Start Date End Date Resolution Snomed Code Not e Normal 02/25/2025 [id number] Harshil Calculation Initial Harshil Date Initial Exam [...] Weight in lbs Pre/Post Dialysis Refused Weight 227.366315773235 BP Diastolic BP Location Tested BP Systolic [...] Weight in lbs Pre/Post Dialysis Refused Weight 221.711028628495 BP Diastolic BP Location Tested BP Systolic [...] Weight in lbs Pre/Post Dialysis Refused Weight 221.024921750281 BP Diastolic BP Location Tested BP Systolic [...] Weight in lbs Pre/Post Dialysis Refused Weight 225.375564488897 BP Diastolic BP Location Tested BP Systolic [...] Weight in lbs Pre/Post Dialysis Refused Weight 230.616180179961 BP Diastolic BP Location Tested BP Systolic BP Type 62 L arm 106 Fetus Heart Rate Present A 148 Present Fetus Movement A Yes Comments heartburn Flowsheet Date 06/18/2025 Sierra Score Blood Edema Fundus Height Fundus Units Glucose Ketones Leukocytes Nitrite Labor Signs Protein Cervic Dilation Cervic Effacement Cervic Station Type Weight in lbs Pre/Post Dialysis Refused Weight 229.8055407586 BP Diastolic BP Location Tested BP Systolic [...] Weight in lbs Pre/Post Dialysis Refused Weight 234.406547357652 BP Diastolic BP Location Tested BP Systolic [...] Weight in lbs Pre/Post Dialysis Refused Weight 232.108577756501 BP Diastolic BP Location Tested BP Systolic [...] Weight in lbs Pre/Post Dialysis Refused Weight 236.523952979504 BP Diastolic BP Location Tested BP Systolic BP Type 76 120 Fetus Heart Rate Present A 144 Present Fetus Movement A Yes Comments mild swelling, heartburn int ermittent Flowsheet Date 08/13/2025 Sierra Score Blood Edema Fundus Height Fundus Units Glucose Ketones Leukocytes Nitrite Labor Signs Protein Cervic Dilation Cervic Effacement Cervic Station 34 cm none trace Michael Mata neg Type Weight in lbs Pre/Post Dialysis Refused Weight 239.205333623620 BP Diastolic BP Location Tested BP Systolic [...] Weight in lbs Pre/Post Dialysis Refused Weight 241.228434711128 BP Diastolic BP Location Tested BP Systolic [...] Cervic Effacement Cervic Station none none Negative Stearns Mata neg 2cm 70% -3 Type Weight in lbs Pre/Post Dialysis Refused Weight 241.013457457606 BP Diastolic BP Location Tested BP Systolic [...] Weight in lbs Pre/Post Dialysis Refused Weight 243.203267237256 BP Diastolic BP Location Tested BP Systolic BP Type 70 120 Fetus Heart Rate Present Fetus Movement Comments Flowsheet Date 09/10/2025 Sierra Score Blood Edema Fundus Height Fundus Units Glucose Ketones Leukocytes Nitrite Labor Signs Protein Cervic Dilation Cervic Effacement Cervic Station none trace Negative Michael Mata neg 2cm 70% -3 Type Weight in lbs Pre/Post Dialysis Refused Weight 243.623124319541 BP Diastolic BP Location Tested BP Systolic [...] Weight in lbs Pre/Post Dialysis Refused Weight 242.012158961280 BP Diastolic BP Location Tested BP Systolic [...] Weight in lbs Pre/Post Dialysis Refused Weight 244.364627787983 BP Diastolic BP Location Tested BP Systolic [...] Weight in lbs Pre/Post Dialysis Refused Weight 248.885874797071 BP Diastolic BP Location Tested BP Systolic [...] Estim ated Date of Delivery false Thalassemia (Czech, Belgian, Mediterranean, Or Background): MCV < 80 false Neural Tube Defect (Meningomyelocele, Spina Bifi da, Or Anencephaly) false Congenital Heart Defect false Down Syndrome false Maco-Sachs (eg, Mandaeism, Cajun, Belarusian-Lyles) f alse Dustin Disease false Sickle Cell Disease Or Trait () false Hemophilia Or Other Blood Disorders false Muscular Dystrophy false Cystic Fibrosis false [place]'s Ch[place] false Intellectual Disability/Autism false If Yes, [...]
--- OUTSIDE RECORDS SUMMARY | 2025-09-25 15:05 | XMS_ITS | Continuity of Care Document ---
Author Organization [place] - Fabio Myers [facility] [place], [facility] ([facility]) Address [address] [place] [address] Assessment No assessment recorded. Plan of Treatment [...] ETE color YELLOW yellow normal Not Available [address] [address] [place], [address], 02/27/2025 22:28:50 02/27/2002/27/2025 URINA LYSIS , COMPL ETE appearance CLEAR clear normal Not Available [facility] [address] [address] [place], [address], 02/27/2025 22:28:50 02/27/20 25 02/27/2025 URINA LYSIS , COMPL ETE specific gravity 1.012 1.001- 1.035 normal Not Available [facility] [address] [address] [place], [address], 02/27/2025 22:28:50 02/27/20 25 02/27/2025 URINA LYSIS , COMPL ETE pH 7.5 5.0-8. 0 normal Not Available [address], [address], 02/27/2025 22:28:50 02/27/20 25 02/27/2025 URINA LYSIS , COMPL ETE glucose NEGATI VE negati ve normal Not Available [address], [address], 02/27/2025 22:28:50 02/27/20 25 02/27/2025 URINA LYSIS , COMPL ETE bilirubin NEGATI VE negati ve normal Not Available [address], [address], 02/27/2025 22:28:50 02/27/20 25 02/27/2025 URINA LYSIS , COMPL ETE ketones NEGATI VE negati ve normal Not Available [address], [address], 02/27/2025 22:28:50 02/27/20 25 02/27/2025 URINA LYSIS , COMPL ETE occult blood NEGATI VE negati ve normal Not Available [address], [address], 02/27/2025 22:28:50 02/27/20 25 02/27/2025 URINA LYSIS , COMPL ETE protein NEGATI VE negati ve normal Not Available [address], [address], 02/27/2025 22:28:50 02/27/20 25 02/27/2025 URINA LYSIS , COMPL ETE nitrite NEGATI VE negati ve normal Not Available [address], [address], 02/27/2025 22:28:50 02/27/20 25 02/27/2025 URINA LYSIS , COMPL ETE leukocyte esterase TRACE negati ve abnormal Not Available [address], [address], 02/27/2025 22:28:50 02/27/20 25 02/27/2025 URINA LYSIS , COMPL ETE WBC NONE SEEN /hpf < or = 5 normal Not Available [facility] [address], [address], 02/27/2025 22:28:50 02/27/20 25 02/27/2025 URINA LYSIS , COMPL ETE RBC NONE SEEN /hpf < or = 2 normal Not Available [facility] [address], [address], 02/27/2025 22:28:50 02/27/20 25 02/27/2025 URINA LYSIS , COMPL ETE squamous epithelial cells 6-10 /hpf < or = 5 abnormal Not Available [address], [address], 02/27/2025 22:28:50 02/27/20 25 02/27/2025 URINA LYSIS , COMPL ETE bacteria NONE SEEN /hpf none seen normal Not Available [address], [address], 02/27/2025 22:28:50 02/27/20 25 02/27/2025 URINA LYSIS , COMPL ETE hyaline cast NONE SEEN /lpf none seen normal Not Available [address], [address], 02/27/2025 22:28:50 02/27/20 25 02/27/2025 URINA LYSIS , COMPL ETE note This urine was jim zed for the prese nce of WBC, RBC, bacte terry, casts , and other forme d eleme nts. Only those eleme nts seen were repor bruce. Not Available [address], [address], 02/27/2025 22:28:50 02/27/20 25 02/27/2025 CBC (INCL UDES DIFF/ PLT) white blood cell count 8.9 thous and/u L 3.8-10 .8 normal Not Available [address], [address], 02/27/2025 22:28:51 02/27/20 25 02/27/2025 CBC (INCL UDES DIFF/ PLT) red blood cell count 4.42 erick on/uL 3.80-5 .10 normal Not Available [address], [address], 02/27/2025 22:28:51 02/27/20 25 02/27/2025 CBC (INCL UDES DIFF/ PLT) hemoglobin 13.2 g/dL 11.7-1 5.5 normal Not Available [address], [address], 02/27/2025 22:28:51 02/27/20 25 02/27/2025 CBC (INCL UDES DIFF/ PLT) hematocrit 41.4 % 35.0-4 5.0 normal Not Available [address], [address], 02/27/2025 22:28:51 02/27/20 25 02/27/2025 CBC (INCL UDES DIFF/ PLT) MCV 93.7 fL 80.0-1 00.0 normal Not Available [address], [address], 02/27/2025 22:28:51 02/27/20 25 02/27/2025 CBC (INCL UDES DIFF/ PLT) MCH 29.9 pg 27.0-3 3.0 normal Not Available [address], [address], 02/27/2025 22:28:51 02/27/20 25 02/27/2025 CBC (INCL [...] clini rajiv condi tion. Not Available [address], [address], 02/27/2025 22:28:51 02/27/20 25 02/27/2025 CBC (INCL UDES DIFF/ PLT) RDW 12.5 % 11.0-1 5.0 normal Not Available [address], [address], 02/27/2025 22:28:51 02/27/20 25 02/27/2025 CBC (INCL UDES DIFF/ PLT) platelet count 294 thous and/u L 140-40 0 normal Not Available [facility] [address], [address], 02/27/2025 22:28:51 02/27/20 25 02/27/2025 CBC (INCL UDES DIFF/ PLT) MPV 11.6 fL 7.5-12 .5 normal Not Available [facility] [address], [address], 02/27/2025 22:28:51 02/27/20 25 02/27/2025 CBC (INCL UDES DIFF/ PLT) absolute neutrophils 6408 cells /uL 1500-7 800 normal Not Available [facility] [address], [address], 02/27/2025 22:28:51 02/27/20 25 02/27/2025 CBC (INCL UDES DIFF/ PLT) absolute lymphocytes 1833 cells /uL 850-39 00 normal Not Available [facility] [address], [place], [address], 02/27/2025 22:28:51 02/27/20 25 02/27/2025 CBC (INCL UDES DIFF/ PLT) absolute monocytes 481 cells /uL 200-95 0 normal Not Available [facility] [address], [address], 02/27/2025 22:28:51 02/27/20 25 02/27/2025 CBC (INCL UDES DIFF/ PLT) absolute eosinophils 151 cells /uL 15-500 normal Not Available [facility] [address], [address], 02/27/2025 22:28:51 02/27/20 25 02/27/2025 CBC (INCL UDES DIFF/ PLT) absolute basophils 27 cells /uL 0-200 normal Not Available [facility] [address], [address], 02/27/2025 22:28:51 02/27/20 25 02/27/2025 CBC (INCL UDES DIFF/ PLT) neutrophils 72 % normal Not Available [address], [address], 02/27/2025 22:28:51 02/27/20 25 02/27/2025 CBC (INCL UDES DIFF/ PLT) lymphocytes 20.6 % normal Not Available [facility] [address], [address], 02/27/2025 22:28:51 02/27/20 25 02/27/2025 CBC (INCL UDES DIFF/ PLT) monocytes 5.4 % normal Not Available [address], [address], 02/27/2025 22:28:51 02/27/20 25 02/27/2025 CBC (INCL UDES DIFF/ PLT) eosinophils 1.7 % normal Not Available [facility] [address] [place], [address], 02/27/2025 22:28:51 02/27/20 25 02/27/2025 CBC (INCL UDES DIFF/ PLT) basophils 0.3 % normal Not Available [address] [place], [address], 02/27/2025 22:28:51 02/27/20 25 02/27/2025 HEPAT ITIS B SURFA CE ANTIG EN W/REF L CONFI RM hepatitis B surface antigen NON-RE ACTIVE non-re active normal For addit ional infor mattodd n, pleas e refer to http: //[facility].que stdia gnost ics.c om/fa q/FAQ 202 (This link is being provi ded for infor matio nal/ educa jhonathan l purpo ses only. ) Not Available [facility] [address], [address], 02/27/2025 22:28:52 02/27/20 25 02/27/2025 HEPAT ITIS [...] a test for HCV RNA (test code 64699 ) is sugge sted. For addit ional infor matio n pleas e refer to http: //[facility] caret[facility].que stdia gnost ics.c om/fa q/FAQ 22v1 (This link is being provi ded for infor matio nal/ educa jhonathan l purpo ses only. ) Not Available [address] [address] [place], [address], 02/27/2025 22:28:53 02/27/20 25 02/27/2025 RUBEL LA [...] with rubel la virus . Not Available [facility] [address] [place] [address], [address], 02/27/2025 22:28:53 02/27/20 25 02/27/2025 HIV 1/2 [...] matio n pleas e refer to http: //[facility]ley godfrey stdia gnost ics.c om/fa q/FAQ 106 (This link is being provi ded for infor matio nal/ educa jhonathan l purpo ses only. ) The perfo rmanc e of this assay has not been clini solomon valid ated in patie nts less than 2 years old. Not Available [facility] [address], [address], 02/27/2025 22:28:54 02/27/20 25 02/27/2025 RPR (DX) W/REF L TITER AND T. PALLI DUM AB, IA RPR (DX) w/refl titer and confirmatory testing NON-RE ACTIVE non-re active normal No labor atory evide nce of syphi lis. If recen t expos ure is suspe cted, submi t a new sampl e in 2-4 weeks . Not Available [address], [address], 02/27/2025 22:28:55 02/27/20 25 02/27/2025 ANTIB EFREN [...] mmuni zed pregn benjamin. Not Available [address], [address], 02/27/2025 22:28:56 02/27/20 25 02/27/2025 ABO GROUP AND RH TYPE ABO group O Not Available [address], [address], 02/27/2025 22:28:57 02/27/20 25 02/27/2025 ABO GROUP AND RH TYPE Rh type RH(D) POSITI VE For addit ional infor sabrina roth refer to http: //divina Godfrey stDia gnost ics.c om/fa q/FAQ 111 (This link is being provi ded for infor amy trujillo/ educcatracho ring l purpo ses only. ) Not Available [address], [address], 02/27/2025 22:28:57 02/27/20 25 02/27/2025 DRUG MONIT OR, PANEL 1, SCREE N, URINE amphetamines NEGATI VE NG/mL <500 See Note A See Note A Not Available [facility] [address] [address] [address], [place], [address], 02/27/2025 22:28:58 02/27/20 25 02/27/2025 DRUG MONIT OR, PANEL 1, SCREE N, URINE barbiturates NEGATI VE NG/mL <300 See Note A See Note A Not Available [facility] [address] [address] [address], [place], [address], 02/27/2025 22:28:58 02/27/20 25 02/27/2025 DRUG MONIT OR, PANEL 1, SCREE N, URINE benzodiazepi duane NEGATI VE NG/mL <100 See Note A See Note A Not Available [facility] [address] [address] [address], [place], [address], 02/27/2025 22:28:58 02/27/20 25 02/27/2025 DRUG MONIT OR, PANEL 1, SCREE N, URINE cocaine metabolite NEGATI VE NG/mL <150 See Note A See Note A Not Available [facility] [address] [address] [address], [place], [address], 02/27/2025 22:28:58 02/27/20 25 02/27/2025 DRUG MONIT OR, PANEL 1, SCREE N, URINE marijuana metabolite NEGATI VE NG/mL <20 See Note A See Note A Not Available [facility] [address] [address] [address], [place], [address], 02/27/2025 22:28:58 02/27/20 25 02/27/2025 DRUG MONIT OR, PANEL 1, SCREE N, URINE methadone metabolite NEGATI VE NG/mL <100 See Note A See Note A Not Available [facility] [address] [address] [address], [place], [address], 02/27/2025 22:28:58 02/27/20 25 02/27/2025 DRUG MONIT OR, PANEL 1, SCREE N, URINE opiates NEGATI VE NG/mL <100 See Note A See Note A Not Available [address] [address], [place], [address], 02/27/2025 22:28:58 02/27/20 25 02/27/2025 DRUG MONIT OR, PANEL 1, SCREE N, URINE oxycodone NEGATI VE NG/mL <100 See Note A See Note A Not Available [address] [address], [place], [address], 02/27/2025 22:28:58 02/27/20 25 02/27/2025 DRUG MONIT OR, PANEL 1, SCREE N, URINE phencyclidin e NEGATI VE NG/mL <25 See Note A See Note A Not Available [address] [address], [place], [address], 02/27/2025 22:28:58 02/27/20 25 02/27/2025 DRUG MONIT OR, PANEL 1, SCREE N, URINE creatinine 108.1 mg/dL > or = 20.0 Not Available [address] [address] [address], [place], [address], 02/27/2025 22:28:58 02/27/20 25 02/27/2025 DRUG MONIT OR, PANEL 1, SCREE N, URINE pH 7.7 4.5-9. 0 Not Available [address] [address] [address], [place], [address], 02/27/2025 22:28:58 02/27/20 25 02/27/2025 DRUG MONIT OR, PANEL 1, SCREE N, URINE oxidant NEGATI VE mcg/m L <200 Not Available [address] [address], [place], [address], 02/27/2025 22:28:58 02/27/20 25 02/27/2025 DRUG MONIT [...] M-F, 8am to 10pm EST Not Available [address] [address] [place], [address], 02/27/2025 22:28:59 02/27/2002/27/2025 CULTU RE, URINE , ROUTI NE culture, urine, routine SEE NOTE CULTU RE, URINE , ROUTI NE Micro Numbe r: [id number] Test Statu s: Final Speci men Sourc e: Urine Speci men Quali ty: Adequ ate Resul t: No Growt h Not Available [address] [address] [place], [address], 02/27/2025 22:28:59 02/27/20 25 03/08/2025 THINP REP TIS PAP (REFL ) HPV MRNA E6/E7 clinical information: normal Pregn ant Not Available [facility] [address] [address] [place], [address], 03/08/2025 08:16:51 02/27/20 25 03/08/2025 THINP REP TIS PAP (REFL ) HPV MRNA E6/E7 LMP: normal NONE GIVEN Not Available [facility] [address] [address] [place], [address], 03/08/2025 08:16:51 02/27/20 25 03/08/2025 THINP REP TIS PAP (REFL ) HPV MRNA E6/E7 prev. Pap: normal NONE GIVEN Not Available [address], [address], 03/08/2025 08:16:51 02/27/20 25 03/08/2025 THINP REP TIS PAP (REFL ) HPV MRNA E6/E7 prev. BX: normal NONE GIVEN Not Available [address] [place], [address], 03/08/2025 08:16:51 02/27/20 25 03/08/2025 THINP REP TIS PAP (REFL ) HPV MRNA E6/E7 source: normal Cervi x, Endoc ervix Not Available [address] [place], [address], 03/08/2025 08:16:51 02/27/2003/08/2025 THINP REP TIS PAP (REFL ) HPV MRNA E6/E7 statement of adequacy: normal Satis facto ry for evalu ation . Endoc ervic al/tr ansfo rmati on zone compo nent prese nt. Not Available [address], [address], 03/08/2025 08:16:51 02/27/2003/08/2025 THINP REP TIS PAP (REFL ) HPV MRNA E6/E7 general categorizati on: abnormal Cytol ogy Resul ts: Epith elial Cell Abnor malit y Not Available [address] [place], [address], 03/08/2025 08:16:51 02/27/2003/08/2025 THINP REP TIS PAP (REFL ) HPV MRNA E6/E7 interpretati on/result: abnormal Low Grade Squam ous Intra epith elial Lesio n (LSIL ) Not Available [address] [place], [address], 03/08/2025 08:16:51 02/27/20 25 03/08/2025 THINP REP TIS PAP (REFL ) HPV MRNA E6/E7 comment: normal This Pap test has been evalu ated with [employer] o[employer] . Sugge st clini rajiv corre latio n and follo w-up as clini solomon appro priat e Not Available [address] [address] [place], [address], 03/08/2025 08:16:51 02/27/20 25 03/08/2025 THINP REP TIS PAP (REFL ) HPV MRNA E6/E7 cytotechnolo gist: normal KMS, CT( CP) CT Scree pat locat ion: [address] [address] [place] [address] Not Available [address] [address] [place], [address], 03/08/2025 08:16:51 02/27/20 25 03/08/2025 THINP REP TIS PAP (REFL ) HPV MRNA E6/E7 pathologist: normal Alisha monique M.D., Board Certi fied in Anato jesús Patho logy and Cytop athol ogy. Phone : [phone] (elec troni c signa josé) Patho logis t Relea se Date/ Time: 03/06 09:25 AM Not Available [address] [address] [place], [address], 03/08/2025 08:16:51 02/27/20 25 03/08/2025 THINP REP [...] clini rajiv infor amy raphael. Not Available [facility] [address] [place], [address], 03/08/2025 08:16:51 02/27/20 25 03/08/2025 HPV MRNA [...] infor sabrina roth e refer to http: //[facility] hayley raphael.patience stdia gnost ics.c om/fa q/FAQ 129v1 (This link if provi ded for infor amy raphael/ educcatracho ring l purpo ses only. ) Not Available [facility] [address] [place], [address], 03/08/2025 08:16:53 02/27/20 25 02/26/2025 CT + NG + TV, DNA, urine /swab Chlamydia negati ve Not Available [facility] ([facility]) [address] [place], [address], 02/25/2025 18:55:26 02/27/20 25 02/26/2025 CT + NG + TV, DNA, urine /swab Gonorrhea negati ve Not Available [facility] ([facility]) [address] [place], [address], 02/25/2025 18:55:26 02/27/2002/26/2025 CT + NG + TV, DNA, urine /swab Trichomonas negati ve Not Available [facility] ([facility]) [address] [place], [address], 02/25/2025 18:55:26 07/02/20 25 07/02/2025 CBC WBC 11.1 x10 4.0-10 .5 high Not Available [facility] [address] [facility] [address] [facility] 1, [place], [address], 07/02/2025 10:24:57 07/02/20 25 07/02/2025 CBC RBC 3.96 x10 3.50-5 .50 Not Available [facility] [address] [facility] [address], [place], [address], 07/02/2025 10:24:57 07/02/20 25 07/02/2025 CBC HGB 12.0 g/dL 12.0-1 6.0 Not Available [facility] [address] [facility] [address], [place], [address], 07/02/2025 10:24:57 07/02/20 25 07/02/2025 CBC HCT 37.1 % 37.0-4 7.0 Not Available [facility] [address] [facility] [address], [place], [address], 07/02/2025 10:24:57 07/02/20 25 07/02/2025 CBC MCV 93.8 fL 80.0-9 9.9 Not Available [facility] [address] [facility] [address] [facility] [address], [place], [address], 07/02/2025 10:24:57 07/02/20 25 07/02/2025 CBC MCH 30.4 pg 27.0-3 2.0 Not Available [facility] [address] [facility] [address] [facility] 1, [place], [address], 07/02/2025 10:24:57 07/02/20 25 07/02/2025 CBC MCHC 32.4 g/dL 32.0-3 6.0 Not Available [place] [facility] [address] [facility] 1, [place], [address], 07/02/2025 10:24:57 07/02/20 25 07/02/2025 CBC RDW 12.9 % 11.5-1 4.5 Not Available [facility] [address] [facility] 1, [place], [address], 07/02/2025 10:24:57 07/02/20 25 07/02/2025 CBC plt 227.7 x10 140.0- 451.0 Not Available [facility] [address] [facility] 1, [place], [address], 07/02/2025 10:24:57 07/02/20 25 07/02/2025 CBC lymphocytes % 15.5 % 20.0-5 0.0 low Not Available [facility] [address] [facility] 1, [place], [address], 07/02/2025 10:24:57 07/02/20 25 07/02/2025 CBC granulcytes % 78.3 % 30.0-7 0.0 high Not Available [facility] [address] [facility] 1, [place], [address], 07/02/2025 10:24:57 07/02/20 25 07/02/2025 CBC monocytes % 4.2 % 2.0-16 .0 Not Available [place] [facility] [address] [facility] Qu[facility] 1, [place], [address], 07/02/2025 10:24:57 07/02/20 25 07/02/2025 CBC granulcytes# 8.7 x10 Not Jenny ilable [facility] [address] [facility] 1, [place], [address], 07/02/2025 10:24:57 07/02/20 25 07/02/2025 CBC lymphocytes # 1.7 x10 Not Available [facility] [address] [facility] 1, [place], [address], 07/02/2025 10:24:57 07/02/20 25 07/02/2025 CBC monocytes # 0.5 x10 Not Avai lable [facility] [address] [facility] 1, [place], [address], 07/02/2025 10:24:57 07/02/20 25 07/02/2025 GLUCO SE SCREE N glucose screen 135.0 mg/dL Not Available [facility] [address] [facility] 1, [place], [address], 07/02/2025 10:30:30 07/11/20 25 07/11/2025 GLUCO SE SCREE N glucose screen 133.0 mg/dL Not Available [facility] [address] [facility] 1, [place], [address], 07/11/2025 10:37:03 08/27/20 25 09/02/2025 CULTU RE, GROUP B STREP WITH SUSCE PTIBI LITY culture, group B strep with susceptibili ty SEE NOTE abnormal CULTU RE, GROUP B STREP WITH SUSCE PTIBI LITY Micro Numbe r: [id number] Test Statu s: Final Speci men [...] See Thera py Comme nts Not Available [facility] [address] [place], [address], 09/02/2025 14:26:34 09/06/2009/06/2025 CBC WBC 9.9 x10 4.0-10 .5 Not Available [facility] [address] [facility] 1, [place], [address], 09/06/2025 09:32:26 09/06/2009/06/2025 CBC RBC 4.29 x10 3.50-5 .50 Not Available [place] [facility] [address] [facility] 1, [place], [address], 09/06/2025 09:32:26 09/06/20 25 09/06/2025 CBC HGB 12.6 g/dL 12.0-1 6.0 Not Available [facility] [address] [place] [address] [facility] 1, [place], [address], 09/06/2025 09:32:26 09/06/2009/06/2025 CBC HCT 39.4 % 37.0-4 7.0 Not Available [facility] [address] [facility] 1, [place], [address], 09/06/2025 09:32:26 09/06/20 25 09/06/2025 CBC MCV 91.9 fL 80.0-9 9.9 Not Available [facility] [address] [facility] Qu[facility] 1, [place], [address], 09/06/2025 09:32:26 09/06/20 25 09/06/2025 CBC MCH 29.3 pg 27.0-3 2.0 Not Available [facility] [address] Felisha Quiñones [facility] 1, [place], [address], 09/06/2025 09:32:26 09/06/20 25 09/06/2025 CBC MCHC 31.9 g/dL 32.0-3 6.0 low Not Available [facility] [address] [facility] 1, [place], [address], 09/06/2025 09:32:26 09/06/20 25 09/06/2025 CBC RDW 13.2 % 11.5-1 4.5 Not Available [facility] [address] [place] [address] [facility] 1, [place], [address], 09/06/2025 09:32:26 09/06/20 25 09/06/2025 CBC plt 216.3 x10 140.0- 451.0 Not Available [facility] [address] [place] [address] [facility] 1, [place], [address], 09/06/2025 09:32:26 09/06/20 25 09/06/2025 CBC lymphocytes % 21.4 % 20.0-5 0.0 Not Available [facility] [address] [place] [address] [facility] 1, [place], [address], 09/06/2025 09:32:26 09/06/20 25 09/06/2025 CBC granulcytes % 70.6 % 30.0-7 0.0 high Not Available [facility] [address] [facility] 1, [place], [address], 09/06/2025 09:32:26 09/06/20 25 09/06/2025 CBC monocytes % 5.8 % 2.0-16 .0 Not Available [facility] [address] [facility] 1, [place], [address], 09/06/2025 09:32:26 09/06/2009/06/2025 CBC granulcytes# 7.0 x10 Not Jenny ilable [facility] [address] [facility] Qu[facility] 1, [place], [address], 09/06/2025 09:32:26 09/06/2009/06/2025 CBC lymphocytes # 2.1 x10 Not Available [facility] [address] [facility] Qu[facility] 1, [place], [address], 09/06/2025 09:32:26 09/06/2009/06/2025 CBC monocytes # 0.6 x10 Not Avai lable [facility] [address] [facility] [address], [place], [address], 09/06/2025 09:32:26 09/06/2009/06/2025 CMP (FEMA LE) glucose 84.0 mg/dL 60.0-9 9.0 Not Available [facility] [address] [facility] [address], [place], [address], 09/06/2025 09:46:52 09/06/2009/06/2025 CMP (FEMA LE) BUN (blood urea nitrogen) 5.0 mg/dL 10.0-2 6.0 low Not Available [facility] [address] [facility] [address], [place], [address], 09/06/2025 09:46:52 09/06/2009/06/2025 CMP (FEMA LE) creatinine (serum) 0.5 mg/dL 0.4-1. 5 Not Available [facility] [address] [facility] [address], [place], [address], 09/06/2025 09:46:52 09/06/20 25 09/06/2025 CMP (FEMA LE) BUN/creatini ne ratio 10.00 ratio Not Available [facility] [address] [facility] [address], [place], [address], 09/06/2025 09:46:52 09/06/20 25 09/06/2025 CMP (FEMA LE) eGFR calculated 154.0 Not Available [facility] [address] [facility] [address], [place], [address], 09/06/2025 09:46:52 09/06/2009/06/2025 CMP (FEMA LE) total protein 7.0 g/dL 6.0-8. 5 Not Available [facility] [address] [facility] [address], [place], [address], 09/06/2025 09:46:52 09/06/2009/06/2025 CMP (FEMA LE) total bilirubin 0.6 mg/dL 0.2-1. 3 Not Available [facility] [address] [facility] [address], [place], [address], 09/06/2025 09:46:52 09/06/2009/06/2025 CMP (FEMA LE) albumin 4.1 g/dL 3.5-5. 5 Not Available [facility] [address] [facility] [address], [place], [place], [id number], 09/06/2025 09:46:52 09/06/2009/06/2025 CMP (FEMA LE) globulin 2.9 calc Not Available [facility] [address], [place], [address], 09/06/2025 09:46:52 09/06/20 25 09/06/2025 CMP (FEMA LE) AST (SGOT) 33.0 U/L 0.0-46 .0 Not Available [facility] [address] [facility] 1, [place], [address], 09/06/2025 09:46:52 09/06/2009/06/2025 CMP (FEMA LE) altv (SGPT) 22.0 U/L 13.0-6 9.0 normal Not Available [facility] [address] [place] [facility], [place], [address], 09/06/2025 09:46:52 09/06/2009/06/2025 CMP (FEMA LE) A/G ratio 1.4 ratio Not Available [facility] [address] [facility] 1, [place], [address], 09/06/2025 09:46:52 09/06/2009/06/2025 CMP (FEMA LE) ALP phos 160.0 U/L 30.0-1 40.0 abnormal Not Available [facility] [address] [facility] 1, [place], [address], 09/06/2025 09:46:52 09/06/2009/06/2025 CMP (FEMA LE) calcium 9.0 mg/dL 8.4-10 .5 Not Available [facility] [address] [facility] 1, [place], [address], 09/06/2025 09:46:52 09/06/2009/06/2025 CMP (FEMA LE) sodium 137.0 mmol/ L 136.0- 145.0 Not Available [facility] [address] [facility] 1, [place], [address], 09/06/2025 09:46:52 09/06/2009/06/2025 CMP (FEMA LE) potassium 3.4 mmol/ L 3.5-5. 1 low Not Available [facility] [address] [facility] 1, [place], [address], 09/06/2025 09:46:52 09/06/20 25 09/06/2025 CMP (FEMA LE) chloride 105.0 mmol/ L 98.0-1 10.0 normal Not Available [facility] [address] Quiñones [facility] 1, [place], [address], 09/06/2025 09:46:52 09/06/20 25 09/06/2025 CMP (FEMA LE) C02 24.0 mmol/ L 22.0-3 1.0 Not Available [facility] [address] [place] Nuria [facility] 1, [place], [address], 09/06/2025 09:46:52 09/06/2009/06/2025 CMP (FEMA LE) anion gap 8.0 calc Not Available [facility] [address] [facility], [place], [address], 09/06/2025 09:46:52 09/06/2009/06/2025 CMP (FEMA LE) osmolality 279.9 calc Not Available [facility] [address] [place] [facility], [place], [address], 09/06/2025 09:46:52 09/06/20 25 09/06/2025 LIPID PROFI LE (FEMA LE) cholesterol 195.0 mg/dL 0.0-20 0.0 Not Available [facility] [address] [place] [facility], [place], [address], 09/06/2025 09:46:55 09/06/20 25 09/06/2025 LIPID PROFI LE (FEMA LE) trig 114.0 mg/dL 0.0-15 0.0 Not Available [facility] [address] [place] [address] [facility] 1, [place], [address], 09/06/2025 09:46:55 11/14/09/06/2025 LIPID PROFI LE (FEMA LE) HDL - direct 74.0 mg/dL >40.0 Not Available [facility] [address] Quiñones [facility] 1, [place], [address], 09/06/2025 09:46:55 09/06/20 25 09/06/2025 LIPID PROFI LE (FEMA LE) VLDL - direct 22.8 mg/dL Not Available [facility] [address] Quiñones [facility] 1, [place], [address], 09/06/2025 09:46:55 09/06/20 25 09/06/2025 LIPID PROFI LE (FEMA LE) LDL - direct 98.2 mg/dL 0.0-13 0.0 Not Available [facility] [address] Quiñones [facility] 1, [place], [address], 09/06/2025 09:46:55 09/06/20 25 09/06/2025 TSH TSH 1.69 uIU/m L 0.49-3 .82 Not Available [facility] [address] [facility] 1, [place], [address], 09/06/2025 10:02:31 09/06/20 25 09/06/2025 HBA1C hemaglobin A1C 5.4 4.2-6. 5 Not Available [facility] [address] [facility] Qui[facility]ones [facility] 1, [place], [address], 09/06/2025 12:51:07 02/19/20 25 02/12/2025 US, chadwick martinez, 1st trime ster No observ ation record ed. Not Available 02/19 09:09:34 04/25/20 25 04/18/2025 US, chadwick tric, follo w-up No observ ation record ed. [email or web address] [facility] [address] [place], [address], 04/29/2025 09:24:34 05/11/20 25 05/07/2025 US, obste tric, 2nd trime ster No observ ation record ed. [address] [place], [address], 05/13/2025 17:57:21 07/05/20 25 07/02/2025 imagi ng/di agnos tic resul t No observ ation record ed. [facility] [address] [place], [address], 07/09/2025 10:35:54 Result Notes None recorded. Problems Name Problem SNOMED Code Status Onset Date Resolution Date Notes Provider Name and Address Organization Details Recorded Time Rheumatoid arthritis 03979997 Active 2022 KERWIN roper [facility] 14:16:25 Pain of knee region 8246010289 Completed 202301/24/2025 KERWIN DUNAWAY [facility] 5 14:16:23 Family history of diabetes mellitus 739604528 Active 2023 KERWIN DUNAWAY [facility] 5 14:16:18 Normal 67820151 Active 2024 ROXI Vang [facility] 10:22:35 Normal 78664708 Active 2024 ROXI NEULORENWAHailey KAVITHA null [facility] 5 10:22:35 Placenta previa partialis 30866705 Active 2024 Alvaro Angelo MD [address] [place], [address], [facility] 5 02:46:26 Low-lying placenta 039935078 Active 2024 Alvaro Angelo MD [address] [place] [address], [phone], [facility] [place] 11:36:47 Problem Notes None recorded. Procedures Surgical History Date Name Laterality Status Provider Name and Address Organization Details Recorded Time 02/27/20 25 Date of Last Pap Smear completed [facility], VikiLRemigioCRemigio 09/02/2025 18:39:21 02/27/20 25 liquid based cervical cytology screening completed [facility], LRemigioLRemigioCRemigio 09/02/2025 18:39:54 01/31/20 24 colposcopy completed [facility], VikiLRemigioCRemigio 01/24/2025 14:17:49 01/31/20 24 hysteroscopy completed [facility], VikiLRemigioCRemigio 01/24/2025 14:18:46 arthroscopy of left knee joint completed [facility], LRemigioLRemigioCRemigio 01/24/2025 14:17:01 cholecystectomy completed [facility], L.LRemigioCRemigio 01/24/2025 14:17:33 Imaging Results None recorded. Procedure Notes None recorded. Medical Equipment None Reported. Allergies Allergen ID Allergen Name Allergen Category Reaction Reaction Severity Criticality Documentation Date Start Date Code Code System Note Provider Name and Address Organization Details Recorded Time 81299 Bactrim medicatio n hives moderate Not available 05/21/2023 82708 9 RxNorm ROXI Vang [facility], LRemigioLRemigioCRemigio 5 15:30:03 61541 Product containin g penicilli n (product) medicatio n hives moderate Not available 05/21/2023 83833 8001 SNOMED TREJOSE RAUL Vang [facility], VikiLRemigioCRemigio 5 15:30:03 02659 Augmentin medicatio n hives moderate Not available 01/24/2025 38411 2 RxNorm KERWIN GUME [facility]io 5 14:19:18 71930 Celebrex medicatio n other moderate Not available 01/24/2025 16485 7 RxNorm TREBA MANFRED PLUMMER [facility] L[facility]CR[facility]io 5 15:30:03 22370 Substance with sulfonami de structure and antibacte rial mechanism of action (substanc e) medicatio n hives moderate Not available 04/18/2025 63236 8003 SNOMED ROXI PLUMMER [facility] 5 15:30:03 76508 amoxicill in / clavulana te medicatio n hives Not available high 09/06/20252022 54434 RxNorm Yessy ates PCN and amoxi cilli n fine Not Available [email or web address] - prod 5 07:58:34 03897 celecoxib medicatio n Not available Not available high 09/06/20252022 87039 7 RxNorm Not Available [email or web address] - prod 5 07:58:34 Medications [...] Updated DateTime 5 170.18 cm 38.1 kg/m2 011306. 75 g 98 % 102 /min 18 /min 98.9 [degF] 118/70 mm[Hg] ROXI PLUMMER [facility] 14:01:34 Social History Question Answer Notes LastModified by Organizat ion Details LastModified Time Tobacco Smoking Status Former Smoker ANTONIO roper [facility] 01/24/2023 10:09:31 Are You Blind Or Do You Have Difficulty Seeing? No Information not available 01/24/2025 Are You Deaf Or Do You Have Serious Difficulty Hearing? No [email or web address] Information not available 01/24/2023 When Did You Quit Smoking? 1-5yearssinc elastcigaret te [email or web address] Information not available 01/24/2023 Do You Work In Healthcare? No Information not available 01/24/2025 What Was The Date Of Your Most Recent Tobacco Screening? 03/26/2025 [email or web address] Information not available 03/26/2025 What Is Your Relationship Status? Information not available 01/24/2025 Have You Recently Traveled Abroad? No [email or web address] Information not available 01/24/2023 Do You Have Difficulty Walking Or Climbing Stairs? No [email or web address] Information not available 01/24/2023 Sex: Unknown Functional [...] independently without assistance or assistive devices? YESWOREST [email or web address] Information not available 01/24/2023 Do you have difficulty doing errands alone? No [email or web address] Information not available 01/24/2023 Are you able to care for yourself independently? 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 No [email or web address] Information not available 01/24/2023 Do you or have you ever used e-cigarettes or vape? Former user of electronic cigarettes Information not available 01/24/2025 Mental Status Question Answer Note LastModified by Organization D etails LastModified Time Do you have difficulty concentrating, remembering or making decisions? No [email or web address] Information no t available 01/24/2023 Family History Relationship Description Onset Age of this Age Resolved Age Notes LastModified by Organization Details LastModified Time Father Diabetes mellitus [email or web address] Not available 12/17/ 2024 09:43:45 Paternal Grandmother Malignant neoplasm of ovary [email or web address] Not available 10:54:13 Notes:Cancer Maternal Grandf ather: Brain Cancer Paternal Grandmother: Ovarian Cancer Medical History Condition Response Coronary Artery Disease N Other N Gout N Blood Diseases N Kidney Stones N Hyperthyroidism N Breast Cancer N Blood Transfusion N COPD N Hypothyroidism N Lung Disease [...] Immunizations Vaccine Type Date Status Note Provider Benny e and Address Organization Details Recorded Time IPV 09/28/2000 completed Susan roper [facility] [place] 10/09/2024 09:35:10 MMR 04/11/1996 kaushal roper [facility] [place] 10/09/2024 09:35:10 MMR 09/28/2000 kaushal roper [facility] [place] 10/09/2024 09:35:10 Tdap 11/17/2010 kaushal roper [facility] [place] 10/09/2024 09:35:10 Tdap 02/20/2015 completed Susan [place] null, [facility] [...] 10/09/2024 09:35:10 DTaP 09/28/2000 completed Susan [place] [facility] 10/09/2024 09:35:10 Past Encounters Encounter ID Performer Location Encounter Start Date Encounter Closed Date Diagnosis/Indication Diagnosis SNOMED-CT Code Diagnosis ICD10 Code Diagnosis IMO Codes Diagnosis Note [id number] Alvaro Angelo MD [facility] ([facility]) [address] [place] [phone] 08/13/2025 10:44:33 08/13/2025 11:38:15 Normal 40963808 Z34.83 Gestation period, 34 weeks 47577873 Z3A.34 [id number] Alvaro Angelo MD [facility] ([facility]) [address] [place], [place] [phone] 08/27/2025 10:35:57 08/27/2025 11:34:41 Normal 38904137 Z34.83 Gestation period, 36 weeks 32788298 Z3A.36 [id number] Alvaro Angelo MD [facility] ([facility]) [address] [place] [id number] 09/03/2025 10:32:59 09/03/2025 11:48:15 Multigravida 956646786 Z34.83 51146918 Gestation period, 37 weeks 62769636 Z3A.37 8493234 [id number] Giovani Yu MD [facility] ([facility]) [address] [place] [id number] 09/06/2025 07:58:00 09/11/2025 03:58:55 Adult health examination 920353067 Z00.00 [id number] LISSETH SETHI [facility] ([facility]) [address] [place] [id number] 5 09/06/2025 07:58:35 09/11/2025 03:58:55 Physical examination 9506664 Z00.00 [id number] Alvaro Angelo MD [facility] ([facility]) [address] [place] [id number] 5 09/10/2025 13:45:56 09/10/2025 14:47:57 Multigravida 065915703 Z34.83 32862484 Gestation period, 38 weeks 81103189 Z3A.38 7912711 Health Concerns Section Related Observation LastModified by Organization Detai ls LastModified Time None Recorded Concern Status LastModified by Organization Details LastModified Time None Recorded Payers Encounter Date Sequence Insurance Name Policy Number Policy Fierro Covered Member ID Fierro Member ID Guarantor Name 09/10/2025 1 [place] [id number] 3 Jeffy Zimmerman [id number] Jeffy Zimmerman Notes Date Note Type Note Provider Name and Address Organization Details Recorded Time 5 text/html jr ob routineReported by PatientHPIFor associated symptoms, patient reportscontractions (michael mata)andedema (hands,feet,legs)but reportsno abdominal pain,no cramping,normal movement,no bleeding,no vaginal discharge,no vaginal/vulvar itching or irritation,no dysuria,no frequency,no urgency,no hematuria,no fever,no nausea,no emesis,no constipation,no diarrhea/loose stool,no visual changes,no headache,no dizziness, andno breathlessness.heartburn / acid reflux with meals, back pain, vaginal pressureDenies any tobacco, nicotine, alcohol, or drug useROS as noted in the HPI Head and chest congestion, sore throat Alvaro Angelo MD [address] [place] [address], [phone], [facility], [facility] 09/10/2025 14:40:52 OBGyn Episode Ob Episode Information Episode Created Date Number of Fetuses Patient Bloodtype Patient rh Status Prepregnancy Weight lbs Domestic Partner Domestic Partner Phone Father Name Bakery 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 Status 01/25/20 25 1 O Positive Damián [...] Resolution Snomed Code Not e Normal 02/25/2025 [id number] Harshil Calculation Initial Harshil Date Initial Exam [...] Weight in lbs Pre/Post Dialysis Refused Weight 227.412275294530 BP Diastolic BP Location Tested BP Systolic [...] Weight in lbs Pre/Post Dialysis Refused Weight 221.700465312562 BP Diastolic BP Location Tested BP Systolic [...] Weight in lbs Pre/Post Dialysis Refused Weight 221.358307513584 BP Diastolic BP Location Tested BP Systolic [...] Weight in lbs Pre/Post Dialysis Refused Weight 225.980495511337 BP Diastolic BP Location Tested BP Systolic [...] Weight in lbs Pre/Post Dialysis Refused Weight 230.587969587336 BP Diastolic BP Location Tested BP Systolic BP Type 62 L arm 106 Fetus Heart Rate Present A 148 Present Fetus Movement A Yes Comments heartburn Flowsheet Date 06/18/2025 Sierra Score Blood Edema Fundus Height Fundus Units Glucose Ketones Leukocytes Nitrite Labor Signs Protein Cervic Dilation Cervic Effacement Cervic Station Type Weight in lbs Pre/Post Dialysis Refused Weight 229.1064728618 BP Diastolic BP Location Tested BP Systolic [...] Weight in lbs Pre/Post Dialysis Refused Weight 234.801741911608 BP Diastolic BP Location Tested BP Systolic [...] Weight in lbs Pre/Post Dialysis Refused Weight 232.168731906885 BP Diastolic BP Location Tested BP Systolic [...] Weight in lbs Pre/Post Dialysis Refused Weight 236.891219879626 BP Diastolic BP Location Tested BP Systolic [...] Weight in lbs Pre/Post Dialysis Refused Weight 239.616821054682 BP Diastolic BP Location Tested BP Systolic [...] Weight in lbs Pre/Post Dialysis Refused Weight 241.898936719274 BP Diastolic BP Location Tested BP Systolic [...] Cervic Effacement Cervic Station none none Negative [place] Mata neg 2cm 70% -3 Type Weight in lbs Pre/Post Dialysis Refused Weight 241.142025933552 BP Diastolic BP Location Tested BP Systolic [...] Weight in lbs Pre/Post Dialysis Refused Weight 243.420888639665 BP Diastolic BP Location Tested BP Systolic BP Type 70 120 Fetus Heart Rate Present Fetus Movement Comments Flowsheet Date 09/10/2025 Sierra Score Blood Edema Fundus Height Fundus Units Glucose Ketones Leukocytes Nitrite Labor Signs Protein Cervic Dilation Cervic Effacement Cervic Station none trace Negative [place] Mata neg 2cm 70% -3 Type Weight in lbs Pre/Post Dialysis Refused Weight 243.476595992310 BP Diastolic BP Location Tested BP Systolic [...] Weight in lbs Pre/Post Dialysis Refused Weight 242.681558923318 BP Diastolic BP Location Tested BP Systolic [...] Weight in lbs Pre/Post Dialysis Refused Weight 244.821199858553 BP Diastolic BP Location Tested BP Systolic [...] Weight in lbs Pre/Post Dialysis Refused Weight 248.340792104292 BP Diastolic BP Location Tested BP Systolic [...] Estim ated Date of Delivery false Thalassemia (Lao, Botswanan, Mediterranean, Or Background): MCV < 80 false Neural Tube Defect (Meningomyelocele, Spina Bifi da, Or Anencephaly) false Congenital Heart Defect false Down Syndrome false [place]o-Sachs (eg, Shinto, Cajun, German-Norwegian) f alse Dustin Disease false Sickle Cell Disease Or Trait () false Hemophilia Or Other Blood Disorders false Muscular Dystrophy false Cystic Fibrosis false [place]'s Chorea false Intellectual Disability/Autism false If Yes, [...]
--- OUTSIDE RECORDS SUMMARY | 2025-09-25 15:06 | XMS_ITS | Continuity of Care Document ---
Author Organization [place] - Fabio Myers [facility], [place] [facility] ([facility]) Address [address] [place] [address] Assessment No assessment recorded. Plan of Treatment [...] ETE color YELLOW yellow normal Not Available [address] [address] [place], [address], 02/27/2025 22:28:50 02/27/2002/27/2025 URINA LYSIS , COMPL ETE appearance CLEAR clear normal Not Available [facility] [address] [address] [place], [address], 02/27/2025 22:28:50 02/27/20 25 02/27/2025 URINA LYSIS , COMPL ETE specific gravity 1.012 1.001- 1.035 normal Not Available [employer] [address] [address] [place], [address], 02/27/2025 22:28:50 02/27/20 25 02/27/2025 URINA LYSIS , COMPL ETE pH 7.5 5.0-8. 0 normal Not Available [address], [address], 02/27/2025 22:28:50 02/27/20 25 02/27/2025 URINA LYSIS , COMPL ETE glucose NEGATI VE negati ve normal Not Available [address], [address], 02/27/2025 22:28:50 02/27/20 25 02/27/2025 URINA LYSIS , COMPL ETE bilirubin NEGATI VE negati ve normal Not Available [address], [address], 02/27/2025 22:28:50 02/27/20 25 02/27/2025 URINA LYSIS , COMPL ETE ketones NEGATI VE negati ve normal Not Available [address], [address], 02/27/2025 22:28:50 02/27/20 25 02/27/2025 URINA LYSIS , COMPL ETE occult blood NEGATI VE negati ve normal Not Available [address], [address], 02/27/2025 22:28:50 02/27/20 25 02/27/2025 URINA LYSIS , COMPL ETE protein NEGATI VE negati ve normal Not Available [address], [address], 02/27/2025 22:28:50 02/27/20 25 02/27/2025 URINA LYSIS , COMPL ETE nitrite NEGATI VE negati ve normal Not Available [address], [address], 02/27/2025 22:28:50 02/27/20 25 02/27/2025 URINA LYSIS , COMPL ETE leukocyte esterase TRACE negati ve abnormal Not Available [address], [address], 02/27/2025 22:28:50 02/27/20 25 02/27/2025 URINA LYSIS , COMPL ETE WBC NONE SEEN /hpf < or = 5 normal Not Available [facility] [address], [address], 02/27/2025 22:28:50 02/27/20 25 02/27/2025 URINA LYSIS , COMPL ETE RBC NONE SEEN /hpf < or = 2 normal Not Available [facility] [address], [address], 02/27/2025 22:28:50 02/27/20 25 02/27/2025 URINA LYSIS , COMPL ETE squamous epithelial cells 6-10 /hpf < or = 5 abnormal Not Available [address], [address], 02/27/2025 22:28:50 02/27/20 25 02/27/2025 URINA LYSIS , COMPL ETE bacteria NONE SEEN /hpf none seen normal Not Available [address], [address], 02/27/2025 22:28:50 02/27/20 25 02/27/2025 URINA LYSIS , COMPL ETE hyaline cast NONE SEEN /lpf none seen normal Not Available [address], [address], 02/27/2025 22:28:50 02/27/20 25 02/27/2025 URINA LYSIS , COMPL ETE note This urine was jim zed for the prese nce of WBC, RBC, bacte terry, casts , and other forme d eleme nts. Only those eleme nts seen were repor bruce. Not Available [address], [address], 02/27/2025 22:28:50 02/27/20 25 02/27/2025 CBC (INCL UDES DIFF/ PLT) white blood cell count 8.9 thous and/u L 3.8-10 .8 normal Not Available [address], [address], 02/27/2025 22:28:51 02/27/20 25 02/27/2025 CBC (INCL UDES DIFF/ PLT) red blood cell count 4.42 erick on/uL 3.80-5 .10 normal Not Available [address], [address], 02/27/2025 22:28:51 02/27/20 25 02/27/2025 CBC (INCL UDES DIFF/ PLT) hemoglobin 13.2 g/dL 11.7-1 5.5 normal Not Available [address], [address], 02/27/2025 22:28:51 02/27/20 25 02/27/2025 CBC (INCL UDES DIFF/ PLT) hematocrit 41.4 % 35.0-4 5.0 normal Not Available [address], [address], 02/27/2025 22:28:51 02/27/20 25 02/27/2025 CBC (INCL UDES DIFF/ PLT) MCV 93.7 fL 80.0-1 00.0 normal Not Available [address], [address], 02/27/2025 22:28:51 02/27/20 25 02/27/2025 CBC (INCL UDES DIFF/ PLT) MCH 29.9 pg 27.0-3 3.0 normal Not Available [address], [address], 02/27/2025 22:28:51 02/27/20 25 02/27/2025 CBC (INCL [...] nt's clini rajiv condi tion. Not Available [address], [address], 02/27/2025 22:28:51 02/27/20 25 02/27/2025 CBC (INCL UDES DIFF/ PLT) RDW 12.5 % 11.0-1 5.0 normal Not Available [address], [address], 02/27/2025 22:28:51 02/27/20 25 02/27/2025 CBC (INCL UDES DIFF/ PLT) platelet count 294 thous and/u L 140-40 0 normal Not Available [facility] [address], [address], 02/27/2025 22:28:51 02/27/20 25 02/27/2025 CBC (INCL UDES DIFF/ PLT) MPV 11.6 fL 7.5-12 .5 normal Not Available [facility] [address], [address], 02/27/2025 22:28:51 02/27/20 25 02/27/2025 CBC (INCL UDES DIFF/ PLT) absolute neutrophils 6408 cells /uL 1500-7 800 normal Not Available [facility] [address], [address], 02/27/2025 22:28:51 02/27/20 25 02/27/2025 CBC (INCL UDES DIFF/ PLT) absolute lymphocytes 1833 cells /uL 850-39 00 normal Not Available [facility] [address], [place], [address], 02/27/2025 22:28:51 02/27/20 25 02/27/2025 CBC (INCL UDES DIFF/ PLT) absolute monocytes 481 cells /uL 200-95 0 normal Not Available [facility] [address], [address], 02/27/2025 22:28:51 02/27/20 25 02/27/2025 CBC (INCL UDES DIFF/ PLT) absolute eosinophils 151 cells /uL 15-500 normal Not Available [facility] [address], [address], 02/27/2025 22:28:51 02/27/20 25 02/27/2025 CBC (INCL UDES DIFF/ PLT) absolute basophils 27 cells /uL 0-200 normal Not Available [facility] [address], [address], 02/27/2025 22:28:51 02/27/20 25 02/27/2025 CBC (INCL UDES DIFF/ PLT) neutrophils 72 % normal Not Available [address], [address], 02/27/2025 22:28:51 02/27/20 25 02/27/2025 CBC (INCL UDES DIFF/ PLT) lymphocytes 20.6 % normal Not Available [facility] [address], [address], 02/27/2025 22:28:51 02/27/20 25 02/27/2025 CBC (INCL UDES DIFF/ PLT) monocytes 5.4 % normal Not Available [address], [address], 02/27/2025 22:28:51 02/27/20 25 02/27/2025 CBC (INCL UDES DIFF/ PLT) eosinophils 1.7 % normal Not Available [facility] [address] [place], [address], 02/27/2025 22:28:51 02/27/20 25 02/27/2025 CBC (INCL UDES DIFF/ PLT) basophils 0.3 % normal Not Available [address] [place], [address], 02/27/2025 22:28:51 02/27/20 25 02/27/2025 HEPAT ITIS B SURFA CE ANTIG EN W/REF L CONFI RM hepatitis B surface antigen NON-RE ACTIVE non-re active normal For addit ional infor mattodd n, pleas e refer to http: //[facility].que stdia gnost ics.c om/fa q/FAQ 202 (This link is being provi ded for infor matio nal/ educa jhonathan l purpo ses only. ) Not Available [facility] [address], [address], 02/27/2025 22:28:52 02/27/20 25 02/27/2025 HEPAT ITIS [...] a test for HCV RNA (test code 35951 ) is sugge sted. For addit ional infor matio n pleas e refer to http: //[facility] cent[facility] n.que stdia gnost ics.c om/fa q/FAQ 22v1 (This link is being provi ded for infor matio nal/ educa jhonathan l purpo ses only. ) Not Available [address] [address] [place], [address], 02/27/2025 22:28:53 02/27/20 25 02/27/2025 RUBEL LA [...] with rubel la virus . Not Available [employer] [facility] [address] [place] [address], [address], 02/27/2025 22:28:53 02/27/20 25 02/27/2025 HIV 1/2 [...] n pleas e refer to http: //[facility] hayley godfrey stdia gnost ics.c om/fa q/FAQ 106 (This link is being provi ded for infor matio nal/ educa jhonathan l purpo ses only. ) The perfo rmanc e of this assay has not been clini solomon valid ated in patie nts less than 2 years old. Not Available [employer] - [address], [address], 02/27/2025 22:28:54 02/27/20 25 02/27/2025 RPR (DX) W/REF L TITER AND T. PALLI DUM AB, IA RPR (DX) w/refl titer and confirmatory testing NON-RE ACTIVE non-re active normal No labor atory evide nce of syphi lis. If recen t expos ure is suspe cted, submi t a new sampl e in 2-4 weeks . Not Available [address], [address], 02/27/2025 22:28:55 02/27/20 25 02/27/2025 ANTIB MAICOL [...] alloi mmuni zed pregn benjamin. Not Available [address], [address], 02/27/2025 22:28:56 02/27/20 25 02/27/2025 ABO GROUP AND RH TYPE ABO group O Not Available [address], [address], 02/27/2025 22:28:57 02/27/20 25 02/27/2025 ABO GROUP AND RH TYPE Rh type RH(D) POSITI VE For addit ional infor sabrina roth refer to http: //divina Godfrey stDia gnost ics.c om/fa q/FAQ 111 (This link is being provi ded for infor amy trujillo/ educcatracho ring l purpo ses only. ) Not Available [address], [address], 02/27/2025 22:28:57 02/27/20 25 02/27/2025 DRUG MONIT OR, PANEL 1, SCREE N, URINE amphetamines NEGATI VE NG/mL <500 See Note A See Note A Not Available [facility] [address] [address], [place], [address], 02/27/2025 22:28:58 02/27/20 25 02/27/2025 DRUG MONIT OR, PANEL 1, SCREE N, URINE barbiturates NEGATI VE NG/mL <300 See Note A See Note A Not Available [facility] [address] [address] [address], [place], [address], 02/27/2025 22:28:58 02/27/20 25 02/27/2025 DRUG MONIT OR, PANEL 1, SCREE N, URINE benzodiazepi duane NEGATI VE NG/mL <100 See Note A See Note A Not Available [facility] [address] [address] [address], [place], [address], 02/27/2025 22:28:58 02/27/20 25 02/27/2025 DRUG MONIT OR, PANEL 1, SCREE N, URINE cocaine metabolite NEGATI VE NG/mL <150 See Note A See Note A Not Available [facility] [address] [address] [address], [place], [address], 02/27/2025 22:28:58 02/27/20 25 02/27/2025 DRUG MONIT OR, PANEL 1, SCREE N, URINE marijuana metabolite NEGATI VE NG/mL <20 See Note A See Note A Not Available [facility] [address] [address] [address], [place], [address], 02/27/2025 22:28:58 02/27/20 25 02/27/2025 DRUG MONIT OR, PANEL 1, SCREE N, URINE methadone metabolite NEGATI VE NG/mL <100 See Note A See Note A Not Available [facility] [address] [address] [address], [place], [address], 02/27/2025 22:28:58 02/27/20 25 02/27/2025 DRUG MONIT OR, PANEL 1, SCREE N, URINE opiates NEGATI VE NG/mL <100 See Note A See Note A Not Available [address] [address] [address], [place], [address], 02/27/2025 22:28:58 02/27/20 25 02/27/2025 DRUG MONIT OR, PANEL 1, SCREE N, URINE oxycodone NEGATI VE NG/mL <100 See Note A See Note A Not Available [address] [address] [address], [place], [address], 02/27/2025 22:28:58 02/27/20 25 02/27/2025 DRUG MONIT OR, PANEL 1, SCREE N, URINE phencyclidin e NEGATI VE NG/mL <25 See Note A See Note A Not Available [address] [address] [address], [place], [address], 02/27/2025 22:28:58 02/27/20 25 02/27/2025 DRUG MONIT OR, PANEL 1, SCREE N, URINE creatinine 108.1 mg/dL > or = 20.0 Not Available [address] [address] [address], [place], [address], 02/27/2025 22:28:58 02/27/20 25 02/27/2025 DRUG MONIT OR, PANEL 1, SCREE N, URINE pH 7.7 4.5-9. 0 Not Available [address] [address] [address], [place], [address], 02/27/2025 22:28:58 02/27/20 25 02/27/2025 DRUG MONIT OR, PANEL 1, SCREE N, URINE oxidant NEGATI VE mcg/m L <200 Not Available [address] [address] [address], [place], [address], 02/27/2025 22:28:58 02/27/20 25 02/27/2025 DRUG MONIT [...] to 10pm EST Not Available [address] [address] [place], [address], 02/27/2025 22:28:59 02/27/2002/27/2025 CULTU RE, URINE , ROUTI NE culture, urine, routine SEE NOTE CULTU RE, URINE , ROUTI NE Micro Numbe r: [id number] Test Statu s: Final Speci men Sourc e: Urine Speci men Quali ty: Adequ ate Resul t: No Growt h Not Available [address] [address] [place], [address], 02/27/2025 22:28:59 02/27/20 25 03/08/2025 THINP REP TIS PAP (REFL ) HPV MRNA E6/E7 clinical information: normal Pregn ant Not Available [facility] [address] [address] [place], [address], 03/08/2025 08:16:51 02/27/20 25 03/08/2025 THINP REP TIS PAP (REFL ) HPV MRNA E6/E7 LMP: normal NONE GIVEN Not Available [facility] [address] [address] [place], [address], 03/08/2025 08:16:51 02/27/20 25 03/08/2025 THINP REP TIS PAP (REFL ) HPV MRNA E6/E7 prev. Pap: normal NONE GIVEN Not Available [address], [address], 03/08/2025 08:16:51 02/27/20 25 03/08/2025 THINP REP TIS PAP (REFL ) HPV MRNA E6/E7 prev. BX: normal NONE GIVEN Not Available [address] [place], [address], 03/08/2025 08:16:51 02/27/20 25 03/08/2025 THINP REP TIS PAP (REFL ) HPV MRNA E6/E7 source: normal Cervi x, Endoc ervix Not Available [address] [place], [address], 03/08/2025 08:16:51 02/27/2003/08/2025 THINP REP TIS PAP (REFL ) HPV MRNA E6/E7 statement of adequacy: normal Satis facto ry for evalu ation . Endoc ervic al/tr ansfo rmati on zone compo nent prese nt. Not Available [address], [address], 03/08/2025 08:16:51 02/27/2003/08/2025 THINP REP TIS PAP (REFL ) HPV MRNA E6/E7 general categorizati on: abnormal Cytol ogy Resul ts: Epith elial Cell Abnor malit y Not Available [address] [place], [address], 03/08/2025 08:16:51 02/27/2003/08/2025 THINP REP TIS PAP (REFL ) HPV MRNA E6/E7 interpretati on/result: abnormal Low Grade Squam ous Intra epith elial Lesio n (LSIL ) Not Available [address] [place], [address], 03/08/2025 08:16:51 02/27/20 25 03/08/2025 THINP REP TIS PAP (REFL ) HPV MRNA E6/E7 comment: normal This Pap test has been evalu ated with [employer] o[employer] . Sugge st clini rajiv corre latio n and follo w-up as clini solomon appro priat e Not Available [address] [address] [place], [address], 03/08/2025 08:16:51 02/27/20 25 03/08/2025 THINP REP TIS PAP (REFL ) HPV MRNA E6/E7 cytotechnolo gist: normal KMS, CT( CP) CT Scree pat locat ion: [address] [address] [place] [address] Not Available [address] [address] [place], [address], 03/08/2025 08:16:51 02/27/20 25 03/08/2025 THINP REP TIS PAP (REFL ) HPV MRNA E6/E7 pathologist: normal Alisha monique M.D., Board Certi fied in [place] Patho logy and Cytop athol ogy. Phone : [phone] (elec troni c signa josé) Patho logis t Relea se Date/ Time: 03/06 09:25 AM Not Available [address] [address] [place], [address], 03/08/2025 08:16:51 02/27/20 25 03/08/2025 THINP REP [...] clini rajiv infor amy raphael. Not Available [facility] [address] [place], [address], 03/08/2025 08:16:51 02/27/20 25 03/08/2025 HPV MRNA [...] sabrina roth e refer to http: //[facility] hayley raphael.patience stdia gnost ics.c om/fa q/FAQ 129v1 (This link if provi ded for infor amy raphael/ educcatracho ring l purpo ses only. ) Not Available [facility] [address] [place], [address], 03/08/2025 08:16:53 02/27/20 25 02/26/2025 CT + NG + TV, DNA, urine /swab Chlamydia negati ve Not Available [facility] ([facility]) [address] [place], [address], 02/25/2025 18:55:26 02/27/20 25 02/26/2025 CT + NG + TV, DNA, urine /swab Gonorrhea negati ve Not Available [facility] ([facility]) [address] [place], [address], 02/25/2025 18:55:26 02/27/2002/26/2025 CT + NG + TV, DNA, urine /swab Trichomonas negati ve Not Available [facility] ([facility]) [address] [place], [address], 02/25/2025 18:55:26 07/02/20 25 07/02/2025 CBC WBC 11.1 x10 4.0-10 .5 high Not Available [facility] [address] [facility] 1, [place], [address], 07/02/2025 10:24:57 07/02/20 25 07/02/2025 CBC RBC 3.96 x10 3.50-5 .50 Not Available [facility] [address] [facility] 1, [place], [address], 07/02/2025 10:24:57 07/02/20 25 07/02/2025 CBC HGB 12.0 g/dL 12.0-1 6.0 Not Available [facility] [address] [facility] 1, [place], [address], 07/02/2025 10:24:57 07/02/20 25 07/02/2025 CBC HCT 37.1 % 37.0-4 7.0 Not Available [facility] [address] [facility] 1, [place], [address], 07/02/2025 10:24:57 07/02/20 25 07/02/2025 CBC MCV 93.8 fL 80.0-9 9.9 Not Available [facility] [address] [facility] 1, [place], [address], 07/02/2025 10:24:57 07/02/20 25 07/02/2025 CBC MCH 30.4 pg 27.0-3 2.0 Not Available [facility] [address] [facility] [address], [place], [address], 07/02/2025 10:24:57 07/02/20 25 07/02/2025 CBC MCHC 32.4 g/dL 32.0-3 6.0 Not Available [facility] [address] Felisha Quiñones [facility] 1, [place], [address], 07/02/2025 10:24:57 07/02/20 25 07/02/2025 CBC RDW 12.9 % 11.5-1 4.5 Not Available [facility] [address] [facility] 1, [place], [address], 07/02/2025 10:24:57 07/02/20 25 07/02/2025 CBC plt 227.7 x10 140.0- 451.0 Not Available [facility] [address] [facility] 1, [place], [address], 07/02/2025 10:24:57 07/02/20 25 07/02/2025 CBC lymphocytes % 15.5 % 20.0-5 0.0 low Not Available [facility] [address] [facility] 1, [place], [address], 07/02/2025 10:24:57 07/02/20 25 07/02/2025 CBC granulcytes % 78.3 % 30.0-7 0.0 high Not Available [facility] [address] [facility] 1, [place], [address], 07/02/2025 10:24:57 07/02/20 25 07/02/2025 CBC monocytes % 4.2 % 2.0-16 .0 Not Available [facility] [address] [facility] 1, [place], [address], 07/02/2025 10:24:57 07/02/20 25 07/02/2025 CBC granulcytes# 8.7 x10 Not Jenny ilable [facility] [address] [facility] s[facility] 1, [place], [address], 07/02/2025 10:24:57 07/02/20 25 07/02/2025 CBC lymphocytes # 1.7 x10 Not Available [facility] [address] [facility], [place], [address], 07/02/2025 10:24:57 07/02/20 25 07/02/2025 CBC monocytes # 0.5 x10 Not Avai lable [facility] [address] [facility], [place], [address], 07/02/2025 10:24:57 07/02/20 25 07/02/2025 GLUCO SE SCREE N glucose screen 135.0 mg/dL Not Available [facility] [address] [facility], [place], [address], 07/02/2025 10:30:30 02/19/20 25 02/12/2025 US, obste tric, 1st trime ster No observ ation record ed. [email or web address] Not Available 02/19 09:09:34 04/25/20 25 04/18/2025 US, obste tric, follo w-up No observ ation record ed. [email or web address] [facility] [address] [place], [address], 04/29/2025 09:24:34 05/11/20 25 05/07/2025 US, obste tric, 2nd trime ster No observ ation record ed. [facility] [address] [place], [address], 05/13/2025 17:57:21 07/05/20 25 07/02/2025 imagi ng/di agnos tic resul t No observ ation record ed. [facility] [address] [facility] [place], [address], 07/09/2025 10:35:54 Result Notes None recorded. Problems Name Problem SNOMED Code Status Onset Date Resolution Date Notes Provider Name and Address Organization Details Recorded Time Rheumatoid arthritis 22418435 Active [address] [facility], L.L.CRemigio 5 14:16:25 Pain of knee region 6962389139 Completed 202301/24/[address] [facility], LRemigioL.CRemigio 5 14:16:23 Family history of diabetes mellitus 625295748 Active [address] [facility], LRemigioL.CRemigio 5 14:16:18 Normal 99931504 Active [address] [facility], L.L.CRemigio 5 10:22:35 Normal 55397699 Active [address] [facility] L[facility] 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 Procedures Surgical History Date Name Laterality Status Provider Name and Address Organization Details Recorded Time 02/27/20 25 Date of Last Pap Smear completed KERWIN DUNAWAY [facility], LRemigioLRemigioCRemigio 09/02/2025 18:39:21 02/27/20 25 liquid based cervical cytology screening completed [facility] [place], [facility] 09/02/2025 18:39:54 01/31/[address] [facility] [place], L.L.CRemigio 01/24/2025 14:17:49 01/31/[address] [facility] [place], L.L.CRemigio 01/24/2025 14:18:46 arthroscopy of left knee joint completed [facility] [place], L.LRemigioCRemigio 01/24/2025 14:17:[address] [facility] [place], L.L.CRemigio 01/24/2025 14:17:33 Imaging Results None recorded. Procedure Notes None recorded. Medical Equipment None Reported. Allergies Allergen ID Allergen Name Allergen Category Reaction Reaction Severity Criticality Documentation Date Start Date Code Code System Note Provider Name and Address Organization Details Recorded Time 60995 Bactrim medicatio n hives moderate Not available 05/21/2023 91619 9 RxNorm TREBA NEUSCHWAN KAVITHA [facility] 5 15:30:03 21300 Product containin g penicilli n (product) medicatio n hives moderate Not available 05/21/2023 11638 8001 SNOMED TREBA NEUSCHBRIELLE [facility] 5 15:30:03 00699 Augmentin medicatio n hives moderate Not available 01/24/2025 [address]46 [address] [facility] 5 14:19:18 36575 Celebrex medicatio n other moderate Not available 01/24/2025 63534 7 RxNorm TREBA NEUSCHWAN [facility] 5 15:30:03 96875 Substance with sulfonami de structure and antibacte rial mechanism of action (substanc e) medicatio n hives moderate Not available 04/18/2025 50454 8003 SNOMED TREBA NEUSCHWAHailey KAVITHA [facility], [facility], [facility] 5 15:30:03 76598 amoxicill in / clavulana te medicatio n hives Not available high 09/06/20252022 63346 RxNorm Yessy ates PCN and amoxi cilli n fine Not Available anna - [employer] - prod 5 07:58:34 29229 celecoxib medicatio n Not available Not available [facility] 09/06/20252022 89017 7 RxNorm Not Available [employer] - prod 5 07:58:34 Medications [...] Organization Details Last Updated DateTime 170.18 cm 36.7 kg/m2 645951. 71 g 18 /min 99 % 94 /min 98.2 [degF] 124/66 mm[Hg] KERWIN DUNAWAY [facility] 11:07:48 Social History Question Answer Notes LastModified by Organizat ion Details LastModified Time Tobacco Smoking Status Former Smoker ANTONIO roper [facility] 01/24/2023 10:09:31 Are You Blind Or Do You Have Difficulty Seeing? No Information not available 01/24/2025 Are You Deaf Or Do You Have Serious Difficulty Hearing? No [email or web address] Information not available 01/24/2023 When Did You Quit Smoking? 1-5yearssinc elastcigaret te [email or web address] Information not available 01/24/2023 Do You Work In Healthcare? No Information not available 01/24/2025 What Was The Date Of Your Most Recent Tobacco Screening? 03/26/2025 [email or web address] Information not available 03/26/2025 What Is Your Relationship Status? Information not available 01/24/2025 Have You Recently Traveled Abroad? No [email or web address] Information not available 01/24/2023 Do You Have [...] independently without assistance or assistive devices? YESWOREST [email or web address] Information not available 01/24/2023 Do you have difficulty doing errands alone? No Information not available 01/24/2023 Are you able to care for yourself independently? Yes [id number] Information not available 01/24/2023 What is your [...] difficulty concentrating, remembering or making decisions? No [id number] Information no t available 01/24/2023 Family History [...] Recorded Time IPV 09/28/[address] [facility] 10/09/2024 09:35:10 MMR 04/11/[address] [facility] 10/09/2024 09:35:10 MMR 09/28/[address] [facility] 10/09/2024 09:35:10 Tdap 11/17/[address] [facility] 10/09/2024 09:35:10 Tdap 02/20/[address] [facility] 10/09/2024 09:35:10 Hep B, unspecified formulation [address] [facility] 10/09/2024 09:35:10 Hep B, unspecified formulation 02/28/[address] [facility] 10/09/2024 09:35:10 Hep B, unspecified formulation 1995 completed Susan Wilson null, [facility] 10/09/2024 09:35:10 OPV, trivalent 1995 completed Susan Wilson null, [facility] 10/09/2024 09:35:10 OPV, trivalent 02/28/1996 completed Susan Wilson null, [facility] 10/09/2024 09:35:10 OPV, trivalent 1995 completed Susan Wilson null, [facility] 10/09/2024 09:35:10 DTP-Hib 11/29/1996 completed Susan Wilson null, [facility] 10/09/2024 09:35:10 DTP-Hib 1995 completed Susan Wilson null, [facility] 10/09/2024 09:35:10 DTP-Hib 02/28/1996 completed Susan Wilson null, [facility] 10/09/2024 09:35:10 DTP-Hib 1995 completed Susan Wilson null, [facility] 10/09/2024 09:35:10 DTaP 09/28/2000 completed Susan Wilson null, [facility] 10/09/2024 09:35:10 Past Encounters Encounter ID Performer Location Encounter Start Date Encounter Closed Date Diagnosis/Indication Diagnosis SNOMED-CT Code Diagnosis ICD10 Code Diagnosis IMO Codes Diagnosis Note [id number] Alvaro Angelo MD [facility] ([facility]) [address] [place] [address] [phone] 06/18/2025 11:21:56 06/18/2025 12:15:35 Normal 35236142 Z34.81 Gestation period, 26 weeks 21794282 Z3A.26 [id number] Alvaro Angelo MD [facility] ([facility]) [address] [place] [address] [phone] 07/02/2025 08:58:15 07/03/2025 12:00:14 [id number] Alvaro Angelo MD [facility] ([facility]) [address] [place] [address] [phone] 07/02/2025 08:58:47 07/04/2025 04:05:41 [id number] Alvaro Angelo MD [facility] ([facility]) [address] [place] [address] [phone] 07/02/2025 10:39:30 07/02/2025 11:45:25 Normal 32712934 Z34.83 48108051 Gestation period, 28 weeks 29908779 Z3A.28 [id number] Health Concerns Section Related Observation LastModified by Organization Detai ls LastModified Time None Recorded Concern Status LastModified by Organization Details LastModified Time None Recorded Payers Encounter Date Sequence Insurance Name Policy Number Policy Fierro Covered Member ID Fierro Member ID Guarantor Name 07/02/2025 1 LANETTE (PPO) [id number] 3 Jeffy Zimmerman [id number] Jeffy Zimmerman Notes Date Note Type Note Provider Name and Address Organization Details Recorded Time 07/02/2025 text/html jr ob routineRep orted by PatientHPIFor associated symptoms, patient reportsnauseabut reportsno abdominal pain,no cramping,no contractions,normal movement,no bleeding,no vaginal discharge,no vaginal/vulvar itching or irritation,no dysuria,no frequency,no urgency,no hematuria,no fever,no emesis,no constipation,no diarrhea/loose stool,no edema,no visual changes,no headache,no dizziness, andno breathlessness.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,Denies any tobacco, nicotine, alcohol, or drug useROS as noted in the HPI Alvaro Angelo MD [address] [place] [address], [phone], [facility] [place] [facility], LFelisha 07/02/2025 11:42:06 OBGyn Episode Ob Episode Information Episode Created Date Number of Fetuses Patient Bloodtype Patient rh Status Prepregnancy Weight lbs Domestic Partner Domestic Partner Phone Father Name Steam Service Inspector Status 01/25/20 1 O Positive Damián OPEN [...] Resolution Snomed Code Not e Normal 02/25/2025 [id number] [facility] Calculation Initial [place]ill Date Initial Exam [...] Weight in lbs Pre/Post Dialysis Refused Weight 227.286889507418 BP Diastolic BP Location Tested BP Systolic [...] Weight in lbs Pre/Post Dialysis Refused Weight 221.302440071121 BP Diastolic BP Location Tested BP Systolic [...] Weight in lbs Pre/Post Dialysis Refused Weight 221.757363031646 BP Diastolic BP Location Tested BP Systolic [...] Weight in lbs Pre/Post Dialysis Refused Weight 225.500081154052 BP Diastolic BP Location Tested BP Systolic [...] Weight in lbs Pre/Post Dialysis Refused Weight 230.725307274439 BP Diastolic BP Location Tested BP Systolic BP Type 62 L arm 106 Fetus Heart Rate Present A 148 Present Fetus Movement A Yes Comments heartburn Flowsheet Date 06/18/2025 [facility] Score Blood Edema Fundus Height Fundus Units Glucose Ketones Leukocytes Nitrite Labor Signs Protein Cervic Dilation Cervic Effacement Cervic Station Type Weight in lbs Pre/Post Dialysis Refused Weight 229.0580750551 BP Diastolic BP Location Tested BP Systolic [...] Weight in lbs Pre/Post Dialysis Refused Weight 234.331044841352 BP Diastolic BP Location Tested BP Systolic [...] Weight in lbs Pre/Post Dialysis Refused Weight 232.970311870916 BP Diastolic BP Location Tested BP Systolic [...] Weight in lbs Pre/Post Dialysis Refused Weight 236.645578773583 BP Diastolic BP Location Tested BP Systolic BP Type 76 120 Fetus Heart Rate Present A 144 Present Fetus Movement A Yes Comments mild swelling, heartburn int ermittent Flowsheet Date 08/13/2025 [place] Score Blood Edema Fundus Height Fundus Units Glucose Ketones Leukocytes Nitrite Labor Signs Protein Cervic Dilation Cervic Effacement Cervic Station 34 cm none trace [place] neg Type Weight in lbs Pre/Post Dialysis Refused Weight 239.742101392153 BP Diastolic BP Location Tested BP Systolic [...] Weight in lbs Pre/Post Dialysis Refused Weight 241.229993213925 BP Diastolic BP Location Tested BP Systolic [...] Cervic Effacement Cervic Station none none Negative [place] neg 2cm 70% -3 Type Weight in lbs Pre/Post Dialysis Refused Weight 241.369578011757 BP Diastolic BP Location Tested BP Systolic [...] Weight in lbs Pre/Post Dialysis Refused Weight 243.951990110539 BP Diastolic BP Location Tested BP Systolic BP Type 70 120 Fetus Heart Rate Present Fetus Movement Comments Flowsheet Date 09/10/2025 [place] Score Blood Edema Fundus Height Fundus Units Glucose Ketones Leukocytes Nitrite Labor Signs Protein Cervic Dilation Cervic Effacement Cervic Station none trace Negative [place] neg 2cm 70% -3 Type Weight in lbs Pre/Post Dialysis Refused Weight 243.728114893511 BP Diastolic BP Location Tested BP Systolic [...] Weight in lbs Pre/Post Dialysis Refused Weight 242.938076172792 BP Diastolic BP Location Tested BP Systolic BP Type 70 122 Fetus Heart Rate Present A 164 Present Fetus Movement A Yes Comments low back pain, vaginal press ure, swelling in hands/feet Flowsheet Date 09/24/2025 [place] Score Blood Edema Fundus Height Fundus Units Glucose Ketones Leukocytes Nitrite Labor Signs Protein Cervic Dilation Cervic Effacement Cervic Station none 1+ Negative [place] trace 3cm 70% -4 Type Weight in lbs Pre/Post Dialysis Refused Weight 244.783092801659 BP Diastolic BP Location Tested BP Systolic [...] Weight in lbs Pre/Post Dialysis Refused Weight 248.259987828362 BP Diastolic BP Location Tested BP Systolic [...] ated Date of Delivery false Thalassemia (Lao, Armenian, Mediterranean, Or Background): MCV < 80 false Neural Tube Defect (Meningomyelocele, Spina Bifi da, Or Anencephaly) false Congenital Heart Defect false Down Syndrome false Maco-Sachs (eg, Pentecostal, Cajun, Wolof-[place]) f alse Dustin Disease false Sickle Cell Disease Or Trait () false Hemophilia Or Other Blood Disorders false Muscular Dystrophy false Cystic Fibrosis false Catron's Chorea false Intellectual Disability/Autism false If Yes, [...]
--- OUTSIDE RECORDS SUMMARY | 2025-09-25 15:06 | XMS_ITS | Continuity of Care Document ---
Author Organization [place] - [facility] [place], [facility] ([facility]) Address [address] [place] [address] Assessment No assessment recorded. Plan of Treatment [...] YELLOW yellow normal Not Available [address] [address] [place], [address], 02/27/2025 22:28:50 02/27/2002/27/2025 URINA LYSIS , COMPL ETE appearance CLEAR clear normal Not Available [facility] [address] [address] [place], [address], 02/27/2025 22:28:50 02/27/20 25 02/27/2025 URINA LYSIS , COMPL ETE specific gravity 1.012 1.001- 1.035 normal Not Available [employer] [address] [address] [place], [address], 02/27/2025 22:28:50 02/27/20 25 02/27/2025 URINA LYSIS , COMPL ETE pH 7.5 5.0-8. 0 normal Not Available [address], [address], 02/27/2025 22:28:50 02/27/20 25 02/27/2025 URINA LYSIS , COMPL ETE glucose NEGATI VE negati ve normal Not Available [address], [address], 02/27/2025 22:28:50 02/27/20 25 02/27/2025 URINA LYSIS , COMPL ETE bilirubin NEGATI VE negati ve normal Not Available [address], [address], 02/27/2025 22:28:50 02/27/20 25 02/27/2025 URINA LYSIS , COMPL ETE ketones NEGATI VE negati ve normal Not Available [address], [address], 02/27/2025 22:28:50 02/27/20 25 02/27/2025 URINA LYSIS , COMPL ETE occult blood NEGATI VE negati ve normal Not Available [address], [address], 02/27/2025 22:28:50 02/27/20 25 02/27/2025 URINA LYSIS , COMPL ETE protein NEGATI VE negati ve normal Not Available [address], [address], 02/27/2025 22:28:50 02/27/20 25 02/27/2025 URINA LYSIS , COMPL ETE nitrite NEGATI VE negati ve normal Not Available [address], [address], 02/27/2025 22:28:50 02/27/20 25 02/27/2025 URINA LYSIS , COMPL ETE leukocyte esterase TRACE negati ve abnormal Not Available [address], [address], 02/27/2025 22:28:50 02/27/20 25 02/27/2025 URINA LYSIS , COMPL ETE WBC NONE SEEN /hpf < or = 5 normal Not Available [facility] [address], [address], 02/27/2025 22:28:50 02/27/20 25 02/27/2025 URINA LYSIS , COMPL ETE RBC NONE SEEN /hpf < or = 2 normal Not Available [facility] [address], [address], 02/27/2025 22:28:50 02/27/20 25 02/27/2025 URINA LYSIS , COMPL ETE squamous epithelial cells 6-10 /hpf < or = 5 abnormal Not Available [address], [address], 02/27/2025 22:28:50 02/27/20 25 02/27/2025 URINA LYSIS , COMPL ETE bacteria NONE SEEN /hpf none seen normal Not Available [address], [address], 02/27/2025 22:28:50 02/27/20 25 02/27/2025 URINA LYSIS , COMPL ETE hyaline cast NONE SEEN /lpf none seen normal Not Available [address], [address], 02/27/2025 22:28:50 02/27/20 25 02/27/2025 URINA LYSIS , COMPL ETE note This urine was jim zed for the prese nce of WBC, RBC, bacte terry, casts , and other forme d eleme nts. Only those eleme nts seen were repor bruce. Not Available [address], [address], 02/27/2025 22:28:50 02/27/20 25 02/27/2025 CBC (INCL UDES DIFF/ PLT) white blood cell count 8.9 thous and/u L 3.8-10 .8 normal Not Available [address], [address], 02/27/2025 22:28:51 02/27/20 25 02/27/2025 CBC (INCL UDES DIFF/ PLT) red blood cell count 4.42 erick on/uL 3.80-5 .10 normal Not Available [address], [address], 02/27/2025 22:28:51 02/27/20 25 02/27/2025 CBC (INCL UDES DIFF/ PLT) hemoglobin 13.2 g/dL 11.7-1 5.5 normal Not Available [address], [address], 02/27/2025 22:28:51 02/27/20 25 02/27/2025 CBC (INCL UDES DIFF/ PLT) hematocrit 41.4 % 35.0-4 5.0 normal Not Available [address], [address], 02/27/2025 22:28:51 02/27/20 25 02/27/2025 CBC (INCL UDES DIFF/ PLT) MCV 93.7 fL 80.0-1 00.0 normal Not Available [address], [address], 02/27/2025 22:28:51 02/27/20 25 02/27/2025 CBC (INCL UDES DIFF/ PLT) MCH 29.9 pg 27.0-3 3.0 normal Not Available [address], [address], 02/27/2025 22:28:51 02/27/20 25 02/27/2025 CBC (INCL [...] nt's clini rajiv condi tion. Not Available [address], [address], 02/27/2025 22:28:51 02/27/20 25 02/27/2025 CBC (INCL UDES DIFF/ PLT) RDW 12.5 % 11.0-1 5.0 normal Not Available [address], [address], 02/27/2025 22:28:51 02/27/20 25 02/27/2025 CBC (INCL UDES DIFF/ PLT) platelet count 294 thous and/u L 140-40 0 normal Not Available [facility] [address], [address], 02/27/2025 22:28:51 02/27/20 25 02/27/2025 CBC (INCL UDES DIFF/ PLT) MPV 11.6 fL 7.5-12 .5 normal Not Available [facility] [address], [address], 02/27/2025 22:28:51 02/27/20 25 02/27/2025 CBC (INCL UDES DIFF/ PLT) absolute neutrophils 6408 cells /uL 1500-7 800 normal Not Available [facility] [address], [address], 02/27/2025 22:28:51 02/27/20 25 02/27/2025 CBC (INCL UDES DIFF/ PLT) absolute lymphocytes 1833 cells /uL 850-39 00 normal Not Available [facility] [address], [place], [address], 02/27/2025 22:28:51 02/27/20 25 02/27/2025 CBC (INCL UDES DIFF/ PLT) absolute monocytes 481 cells /uL 200-95 0 normal Not Available [facility] [address], [address], 02/27/2025 22:28:51 02/27/20 25 02/27/2025 CBC (INCL UDES DIFF/ PLT) absolute eosinophils 151 cells /uL 15-500 normal Not Available [facility] [address], [address], 02/27/2025 22:28:51 02/27/20 25 02/27/2025 CBC (INCL UDES DIFF/ PLT) absolute basophils 27 cells /uL 0-200 normal Not Available [facility] [address], [address], 02/27/2025 22:28:51 02/27/20 25 02/27/2025 CBC (INCL UDES DIFF/ PLT) neutrophils 72 % normal Not Available [address], [address], 02/27/2025 22:28:51 02/27/20 25 02/27/2025 CBC (INCL UDES DIFF/ PLT) lymphocytes 20.6 % normal Not Available [facility] [address], [address], 02/27/2025 22:28:51 02/27/20 25 02/27/2025 CBC (INCL UDES DIFF/ PLT) monocytes 5.4 % normal Not Available [address], [address], 02/27/2025 22:28:51 02/27/20 25 02/27/2025 CBC (INCL UDES DIFF/ PLT) eosinophils 1.7 % normal Not Available [facility] [address] [place], [address], 02/27/2025 22:28:51 02/27/20 25 02/27/2025 CBC (INCL UDES DIFF/ PLT) basophils 0.3 % normal Not Available [address] [place], [address], 02/27/2025 22:28:51 02/27/20 25 02/27/2025 HEPAT ITIS B SURFA CE ANTIG EN W/REF L CONFI RM hepatitis B surface antigen NON-RE ACTIVE non-re active normal For addit ional infor mattodd n, pleas e refer to http: //[facility] hospitaltodd n.que stdia gnost ics.c om/fa q/FAQ 202 (This link is being provi ded for infor matio nal/ educa jhonathan l purpo ses only. ) Not Available [facility] [address], [address], 02/27/2025 22:28:52 02/27/20 25 02/27/2025 HEPAT ITIS [...] a test for HCV RNA (test code 14989 ) is sugge sted. For addit ional infor matio n pleas e refer to http: //[facility] hospitaltodd n.que stdia gnost ics.c om/fa q/FAQ 22v1 (This link is being provi ded for infor matio nal/ educa jhonathan l purpo ses only. ) Not Available [address] [address] [place], [address], 02/27/2025 22:28:53 02/27/20 25 02/27/2025 RUBEL LA [...] with rubel la virus . Not Available [facility] [address] [place] [address], [address], 02/27/2025 22:28:53 02/27/20 25 02/27/2025 HIV 1/2 [...] n pleas e refer to http: //[facility] godfrey stdia gnost ics.c om/fa q/FAQ 106 (This link is being provi ded for infor matio nal/ educa jhonathan l purpo ses only. ) The perfo rmanc e of this assay has not been clini solomon valid ated in patie nts less than 2 years old. Not Available [facility] [address], [address], 02/27/2025 22:28:54 02/27/20 25 02/27/2025 RPR (DX) W/REF L TITER AND T. PALLI DUM AB, IA RPR (DX) w/refl titer and confirmatory testing NON-RE ACTIVE non-re active normal No labor atory evide nce of syphi lis. If recen t expos ure is suspe cted, submi t a new sampl e in 2-4 weeks . Not Available [address], [address], 02/27/2025 22:28:55 02/27/20 25 02/27/2025 ANTIB MAICOL [...] alloi mmuni zed pregn benjamin. Not Available [address], [address], 02/27/2025 22:28:56 02/27/20 25 02/27/2025 ABO GROUP AND RH TYPE ABO group O Not Available [address], [address], 02/27/2025 22:28:57 02/27/20 25 02/27/2025 ABO GROUP AND RH TYPE Rh type RH(D) POSITI VE For addit ional infor sabrina roth refer to http: //divina Godfrey stDia gnost ics.c om/fa q/FAQ 111 (This link is being provi ded for infor amy trujillo/ educcatracho ring l purpo ses only. ) Not Available [address], [address], 02/27/2025 22:28:57 02/27/20 25 02/27/2025 DRUG MONIT OR, PANEL 1, SCREE N, URINE amphetamines NEGATI VE NG/mL <500 See Note A See Note A Not Available [facility] [address] [address] [address], [place], [address], 02/27/2025 22:28:58 02/27/20 25 02/27/2025 DRUG MONIT OR, PANEL 1, SCREE N, URINE barbiturates NEGATI VE NG/mL <300 See Note A See Note A Not Available [facility] [address] [address] [address], [place], [address], 02/27/2025 22:28:58 02/27/20 25 02/27/2025 DRUG MONIT OR, PANEL 1, SCREE N, URINE benzodiazepi duane NEGATI VE NG/mL <100 See Note A See Note A Not Available [facility] [address] [address] [address], [place], [address], 02/27/2025 22:28:58 02/27/20 25 02/27/2025 DRUG MONIT OR, PANEL 1, SCREE N, URINE cocaine metabolite NEGATI VE NG/mL <150 See Note A See Note A Not Available [facility] [address] [address] [address], [place], [address], 02/27/2025 22:28:58 02/27/20 25 02/27/2025 DRUG MONIT OR, PANEL 1, SCREE N, URINE marijuana metabolite NEGATI VE NG/mL <20 See Note A See Note A Not Available [facility] [address] [address] [address], [place], [address], 02/27/2025 22:28:58 02/27/20 25 02/27/2025 DRUG MONIT OR, PANEL 1, SCREE N, URINE methadone metabolite NEGATI VE NG/mL <100 See Note A See Note A Not Available [facility] [address] [address] [address], [place], [address], 02/27/2025 22:28:58 02/27/20 25 02/27/2025 DRUG MONIT OR, PANEL 1, SCREE N, URINE opiates NEGATI VE NG/mL <100 See Note A See Note A Not Available [address] [address] [address], [place], [address], 02/27/2025 22:28:58 02/27/20 25 02/27/2025 DRUG MONIT OR, PANEL 1, SCREE N, URINE oxycodone NEGATI VE NG/mL <100 See Note A See Note A Not Available [address] [address] [address], [place], [address], 02/27/2025 22:28:58 02/27/20 25 02/27/2025 DRUG MONIT OR, PANEL 1, SCREE N, URINE phencyclidin e NEGATI VE NG/mL <25 See Note A See Note A Not Available [address] [address] [address], [place], [address], 02/27/2025 22:28:58 02/27/20 25 02/27/2025 DRUG MONIT OR, PANEL 1, SCREE N, URINE creatinine 108.1 mg/dL > or = 20.0 Not Available [address] [address] [address], [place], [address], 02/27/2025 22:28:58 02/27/20 25 02/27/2025 DRUG MONIT OR, PANEL 1, SCREE N, URINE pH 7.7 4.5-9. 0 Not Available [address] [address] [address], [place], [address], 02/27/2025 22:28:58 02/27/20 25 02/27/2025 DRUG MONIT OR, PANEL 1, SCREE N, URINE oxidant NEGATI VE mcg/m L <200 Not Available [address] [address] [address], [place], [address], 02/27/2025 22:28:58 02/27/20 25 02/27/2025 DRUG MONIT [...] to 10pm EST Not Available [address] [address] [place], [address], 02/27/2025 22:28:59 02/27/2002/27/2025 CULTU RE, URINE , ROUTI NE culture, urine, routine SEE NOTE CULTU RE, URINE , ROUTI NE Micro Numbe r: [id number] Test Statu s: Final Speci men Sourc e: Urine Speci men Quali ty: Adequ ate Resul t: No Growt h Not Available [address] [address] [place], [address], 02/27/2025 22:28:59 02/27/20 25 03/08/2025 THINP REP TIS PAP (REFL ) HPV MRNA E6/E7 clinical information: normal Pregn ant Not Available [facility] [address] [address] [place], [address], 03/08/2025 08:16:51 02/27/20 25 03/08/2025 THINP REP TIS PAP (REFL ) HPV MRNA E6/E7 LMP: normal NONE GIVEN Not Available [facility] [address] [address] [place], [address], 03/08/2025 08:16:51 02/27/20 25 03/08/2025 THINP REP TIS PAP (REFL ) HPV MRNA E6/E7 prev. Pap: normal NONE GIVEN Not Available [address], [address], 03/08/2025 08:16:51 02/27/20 25 03/08/2025 THINP REP TIS PAP (REFL ) HPV MRNA E6/E7 prev. BX: normal NONE GIVEN Not Available [address] [place], [address], 03/08/2025 08:16:51 02/27/20 25 03/08/2025 THINP REP TIS PAP (REFL ) HPV MRNA E6/E7 source: normal Cervi x, Endoc ervix Not Available [address] [place], [address], 03/08/2025 08:16:51 02/27/2003/08/2025 THINP REP TIS PAP (REFL ) HPV MRNA E6/E7 statement of adequacy: normal Satis facto ry for evalu ation . Endoc ervic al/tr ansfo rmati on zone compo nent prese nt. Not Available [address], [address], 03/08/2025 08:16:51 02/27/2003/08/2025 THINP REP TIS PAP (REFL ) HPV MRNA E6/E7 general categorizati on: abnormal Cytol ogy Resul ts: Epith elial Cell Abnor malit y Not Available [address] [place], [address], 03/08/2025 08:16:51 02/27/2003/08/2025 THINP REP TIS PAP (REFL ) HPV MRNA E6/E7 interpretati on/result: abnormal Low Grade Squam ous Intra epith elial Lesio n (LSIL ) Not Available [address] [place], [address], 03/08/2025 08:16:51 02/27/20 25 03/08/2025 THINP REP TIS PAP (REFL ) HPV MRNA E6/E7 comment: normal This Pap test has been evalu ated with [employer] o[employer] . Sugge st clini rajiv corre latio n and follo w-up as clini solomon appro priat e Not Available [address] [address] [place], [address], 03/08/2025 08:16:51 02/27/20 25 03/08/2025 THINP REP TIS PAP (REFL ) HPV MRNA E6/E7 cytotechnolo gist: normal KMS, CT( CP) CT Scree pat locat ion: [address] [address] [place] [address] Not Available [address] [address] [place], [address], 03/08/2025 08:16:51 02/27/20 25 03/08/2025 THINP REP TIS PAP (REFL ) HPV MRNA E6/E7 pathologist: normal Alisha monique M.D., Board Certi fied in [place] Patho logy and Cytop athol ogy. Phone : [phone] (elec troni c signa josé) Patho logis t Relea se Date/ Time: 03/06 09:25 AM Not Available [address] [address] [place], [address], 03/08/2025 08:16:51 02/27/20 25 03/08/2025 THINP REP [...] clini rajiv infor amy raphael. Not Available [facility] [address] [place], [address], 03/08/2025 08:16:51 02/27/20 25 03/08/2025 HPV MRNA [...] infor sabrina roth e refer to http: //[facility] raphael.patience stdia gnost ics.c om/fa q/FAQ 129v1 (This link if provi ded for infor amy raphael/ educcatracho ring l purpo ses only. ) Not Available [facility] [address] [place], [address], 03/08/2025 08:16:53 02/27/20 25 02/26/2025 CT + NG + TV, DNA, urine /swab Chlamydia negati ve Not Available [facility] ([facility] [address] [place], [address], 02/25/2025 18:55:26 02/27/20 25 02/26/2025 CT + NG + TV, DNA, urine /swab Gonorrhea negati ve Not Available [facility] ([facility]) [address] [place], [address], 02/25/2025 18:55:26 02/27/2002/26/2025 CT + NG + TV, DNA, urine /swab Trichomonas negati ve Not Available [facility] ([facility]) [address] [place], [address], 02/25/2025 18:55:26 07/02/20 25 07/02/2025 CBC WBC 11.1 x10 4.0-10 .5 high Not Available [facility] [address] [facility] [address] [facility] 1, [place], [address], 07/02/2025 10:24:57 07/02/20 25 07/02/2025 CBC RBC 3.96 x10 3.50-5 .50 Not Available [facility] [address] [facility], [place], [address], 07/02/2025 10:24:57 07/02/20 25 07/02/2025 CBC HGB 12.0 g/dL 12.0-1 6.0 Not Available [facility] [address] [facility], [place], [address], 07/02/2025 10:24:57 07/02/20 25 07/02/2025 CBC HCT 37.1 % 37.0-4 7.0 Not Available [facility] [address] [facility] [address], [place], [address], 07/02/2025 10:24:57 07/02/20 25 07/02/2025 CBC MCV 93.8 fL 80.0-9 9.9 Not Available [facility] [address] [facility] [address] [facility] 1, [place], [address], 07/02/2025 10:24:57 07/02/20 25 07/02/2025 CBC MCH 30.4 pg 27.0-3 2.0 Not Available [facility] [address] [facility] [address] [facility] 1, [place], [address], 07/02/2025 10:24:57 07/02/20 25 07/02/2025 CBC MCHC 32.4 g/dL 32.0-3 6.0 Not Available [facility] [address] [facility] 1, [place], [address], 07/02/2025 10:24:57 07/02/20 25 07/02/2025 CBC RDW 12.9 % 11.5-1 4.5 Not Available [facility] [address] [facility] [facility] [address] [facility] 1, [place], [address], 07/02/2025 10:24:57 07/02/20 25 07/02/2025 CBC plt 227.7 x10 140.0- 451.0 Not Available [facility] [address] [facility] [facility] [address] [facility] 1, [place], [address], 07/02/2025 10:24:57 07/02/20 25 07/02/2025 CBC lymphocytes % 15.5 % 20.0-5 0.0 low Not Available [facility] [address] [facility] [address] [facility] 1, [place], [address], 07/02/2025 10:24:57 07/02/20 25 07/02/2025 CBC granulcytes % 78.3 % 30.0-7 0.0 high Not Available [facility] [address] [facility] [facility] [address] [facility] 1, [place], [address], 07/02/2025 10:24:57 07/02/20 25 07/02/2025 CBC monocytes % 4.2 % 2.0-16 .0 Not Available [facility] [address] [facility] [address] [facility] 1, [place], [address], 07/02/2025 10:24:57 07/02/20 25 07/02/2025 CBC granulcytes# 8.7 x10 Not Jenny ilable [facility] [address], [place], [address], 07/02/2025 10:24:57 07/02/20 25 07/02/2025 CBC lymphocytes # 1.7 x10 Not Available [facility] [address] [facility] [address] [facility] 1, [place], [address], 07/02/2025 10:24:57 07/02/20 25 07/02/2025 CBC monocytes # 0.5 x10 Not Avai lable [facility] [address] [facility] [facility] [address] [facility] 1, [place], [address], 07/02/2025 10:24:57 07/02/20 25 07/02/2025 GLUCO SE SCREE N glucose screen 135.0 mg/dL Not Available [facility] [address] [facility] [facility] [address] [facility] 1, [place], [address], 07/02/2025 10:30:30 07/11/20 25 07/11/2025 GLUCO SE SCREE N glucose screen 133.0 mg/dL Not Available [facility] [address] [facility] [facility] [address] [facility] 1, [place], [address], 07/11/2025 10:37:03 02/19/20 25 02/12/2025 US, obste tric, 1st trime ster No observ ation record ed. [email or web address] Not Available 02/19 09:09:34 04/25/20 25 04/18/2025 US, obste tric, follo w-up No observ ation record ed. [email or web address] [facility] [address] [place], [address], 04/29/2025 09:24:34 05/11/20 25 05/07/2025 US, obste tric, 2nd trime ster No observ ation record ed. [facility] [address] [place], [address], 05/13/2025 17:57:21 07/05/20 25 07/02/2025 imagi ng/di agnos tic resul t No observ ation record ed. [facility] [address] [place], [address], 07/09/2025 10:35:54 Result Notes None recorded. Problems Name Problem SNOMED Code Status Onset Date Resolution Date Notes Provider Name and Address Organization Details Recorded Time Rheumatoid arthritis 87440825 Active 2022 KERWIN roper [facility]CRemigio 5 14:16:25 Pain of knee region 1396956705 Completed 202301/24/2025 KERWIN roper [facility] 5 14:16:23 Family history of diabetes mellitus 338705415 Active 2023 KERWIN roper [facility] 5 14:16:18 Normal 42612440 Active 2024 ROXI NEULORENWAHailey PLUMMER null, [facility] 5 10:22:35 Normal 85146559 Active 2024 ROXI LANDISWAHailey PLUMMER null [facility] 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 5 02:46:26 Low-lying placenta 058115676 Active 2024 Alvaro Angelo MD [address] [place], [address], [facility] 5 11:36:47 Problem Notes None recorded. Procedures Surgical History Date Name Laterality Status Provider Name and Address Organization Details Recorded Time 02/27/20 25 Date of Last Pap Smear completed [facility] [place] 09/02/2025 18:39:21 02/27/20 25 liquid based cervical cytology screening completed [facility] [place] 09/02/2025 18:39:54 01/31/[address] [facility], VikiLRemigioCRemigio 01/24/2025 14:17:49 01/31/[address] [facility], SaschaCRemigio 01/24/2025 14:18:46 arthroscopy of left knee joint completed [facility] [place] 01/24/2025 14:17:[address] [facility], LRemigioLRemigioCRemigio 01/24/2025 14:17:33 Imaging Results None recorded. Procedure Notes None recorded. Medical Equipment None Reported. Allergies Allergen ID Allergen Name Allergen Category Reaction Reaction Severity Criticality Documentation Date Start Date Code Code System Note Provider Name and Address Organization Details Recorded Time 64683 Bactrim medicatio n hives moderate Not available 05/21/2023 77646 9 RxNorm [facility]BA [facility] LRemigioLRemigioCRemigio 5 15:30:03 34237 Product containin g penicilli n (product) medicatio n hives moderate Not available 05/21/2023 39359 8001 SNOMED ROXI SHEARER [facility], VikiLRemigioCRemigio 5 15:30:03 70284 Augmentin medicatio n hives moderate Not available 01/24/2025 73692 2 RxNorm [facility], LRemigioLRemigioCRemigio 5 14:19:18 81115 Celebrex medicatio n other moderate Not available 01/24/2025 43785 7 RxNorm TREBA NEUSCHWAN KAVITHA [facility] 5 15:30:03 90965 Substance with sulfonami de structure and antibacte rial mechanism of action (substanc e) medicatio n hives moderate Not available 04/18/2025 90761 8003 SNOMED TREBA NEUSCHWAN KAVITHA [facility] 5 15:30:03 98455 amoxicill in / clavulana te medicatio n hives Not available [facility] 09/06/20252022 54804 RxNorm Yessy ates PCN and amoxi cilli n fine Not Available [employer] - prod 5 07:58:34 67216 celecoxib medicatio n Not available Not available [facility] 09/06/20252022 71637 7 RxNorm Not Available [employer] - prod 5 07:58:34 Medications [...] height Body mass index (BMI) Body weight Body temperature Oxygen saturation Heart rate Respiratory rate Systolic And Diastolic Provider Name and Address Organization Details Last Updated DateTime 170.18 cm 37.5 kg/m2 249037. 98 g 98.1 [degF] 97 % 88 /min 18 /min 122/64 mm[Hg] KERWIN DUNAWAY [facility] 11:16:09 Social History Question Answer Notes LastModified by Organizat ion Details LastModified Time Tobacco Smoking Status Former Smoker ANTONIO roper [facility] 01/24/2023 10:09:31 Are You Blind Or Do You Have Difficulty Seeing? No Information not available 01/24/2025 Are You Deaf Or Do You Have Serious Difficulty Hearing? No [email or web address] Information not available 01/24/2023 When Did You Quit Smoking? 1-5yearssinc elastcigaret te [id number] Information not available 01/24/2023 Do You Work In Healthcare? No Information not available 01/24/2025 What Was The Date Of Your Most Recent Tobacco Screening? 03/26/2025 [email or web address] Information not available 03/26/2025 What Is Your Relationship Status? Information not available 01/24/2025 Have You Recently Traveled Abroad? No Information not available 01/24/2023 Do You Have Difficulty Walking Or Climbing Stairs? No [email or web address] Information not available 01/24/2023 Sex: Unknown Functional [...] independently without assistance or assistive devices? [employer]ORE[employer] [email or web address] Information not available 01/24/2023 Do you have difficulty doing errands alone? No [email or web address] Information not available 01/24/2023 Are you able to care for yourself independently? 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 No [email or web address] Information not available 01/24/2023 Do you or [...] Organization Details LastModified Time Father Diabetes mellitus [email or web address] Not available 2023 09:43:45 Paternal Grandmother Malignant [...] Recorded Time IPV 09/28/2000 completed Susan roper [facility] 10/09/2024 09:35:10 MMR 04/11/1996 completed Susan roper [facility] 10/09/2024 09:35:10 MMR 09/28/2000 completed Susan roper [facility] 10/09/2024 09:35:10 Tdap 11/17/2010 completed Susan roper [facility] 10/09/2024 09:35:10 Tdap 02/20/2015 kaushal roper [facility] 10/09/2024 09:35:10 Hep B, unspecified formulation 1995 completed Susan Wilson null, [facility] 10/09/2024 09:35:10 Hep B, unspecified formulation 02/28/1996 completed Susan Wilson null, [facility] 10/09/2024 09:35:10 Hep B, unspecified formulation 1995 completed Susan Wilson null, [facility] 10/09/2024 09:35:10 OPV, trivalent 1995 completed Susan Wilson null, [facility] 10/09/2024 09:35:10 OPV, trivalent 02/28/1996 completed Susan Wilson null, [facility] 10/09/2024 09:35:10 OPV, trivalent 1995 completed Susan Wilson null, [facility] 10/09/2024 09:35:10 DTP-Hib 11/29/1996 completed Susan Wilson null, [facility] 10/09/2024 09:35:10 DTP-Hib 1995 completed Susan Wilson null, [facility] 10/09/2024 09:35:10 DTP-Hib 02/28/1996 completed Susan Wilson null, [facility] 10/09/2024 09:35:10 DTP-Hib 1995 completed Susan Wilson null, [facility] 10/09/2024 09:35:10 DTaP 09/28/2000 completed Susan Wilson null, [facility] 10/09/2024 09:35:10 Past Encounters Encounter ID Performer Location Encounter Start Date Encounter Closed Date Diagnosis/Indication Diagnosis SNOMED-CT Code Diagnosis ICD10 Code Diagnosis IMO Codes Diagnosis Note [id number] Alvaro Angelo MD [facility] ([facility]) [address] [place] [id number] 07/16/2025 10:32:08 07/16/2025 11:40:01 Multigravida 999561937 Z34.83 [id number] Gestation period, 30 weeks 14363781 Z3A.30 6962643 [id number] Alvaro Angelo MD [facility] ([facility]) [address] [place] [address] 07/30/2025 10:40:36 07/30/2025 11:28:24 Normal 57691644 Z34.83 Gestation period, 32 weeks 5189513 Z3A.32 8391071 [id number] Alvaro Angelo MD [facility] (formerly [facility] [address] [place] [phone] 08/13/2025 10:44:33 08/13/2025 11:38:15 Normal 72690668 Z34.83 Gestation period, 34 weeks 40174712 Z3A.34 0335965 Health Concerns Section Related Observation LastModified by Organization Detai ls LastModified Time None Recorded Concern Status LastModified by Organization Details LastModified Time None Recorded Payers Encounter Date Sequence Insurance Name Policy Number Policy Fierro Covered Member ID Fierro Member ID Guarantor Name 08/13/2025 1 [place] [id number] 3 Jeffy Zimmerman [id number] Jeffy Zimmerman Notes Date Note Type Note Provider Name and Address Organization Details Recorded Time 08/13/20 25 text/ht ml jr ob routineReported by PatientHPIFor associated symptoms, patient reportscrampingandcontractions (michael mata)but reportsno abdominal pain,normal movement,no bleeding,no vaginal discharge,no vaginal/vulvar itching or irritation,no dysuria,no frequency,no urgency,no hematuria,no fever,no nausea,no emesis,no constipation,no diarrhea/loose stool,no edema,no visual changes,no headache,no dizziness, andno breathlessness.heartburn/ acid reflux with meals,Denies any tobacco, nicotine, alcohol, or drug useROS as noted in the HPI Alvaro Roylance, MD [address] [place], [address] 08/13/2025 11:34:00 OBGyn Episode Ob Episode Information Episode Created Date Number of Fetuses Patient Bloodtype Patient rh Status Prepregnancy Weight lbs Domestic Partner Domestic Partner Phone Father Name Coffee Maker Status 01/25/20 1 O Positive Damián OPEN [...] Resolution Snomed Code Not e Normal 02/25/2025 [id number] Merrill Calculation Initial Merrill Date Initial Exam [...] Weight in lbs Pre/Post Dialysis Refused Weight 227.070172670133 BP Diastolic BP Location Tested BP Systolic [...] Weight in lbs Pre/Post Dialysis Refused Weight 221.101385532981 BP Diastolic BP Location Tested BP Systolic [...] Weight in lbs Pre/Post Dialysis Refused Weight 221.862008892051 BP Diastolic BP Location Tested BP Systolic [...] Weight in lbs Pre/Post Dialysis Refused Weight 225.191199856125 BP Diastolic BP Location Tested BP Systolic [...] Weight in lbs Pre/Post Dialysis Refused Weight 230.711282581954 BP Diastolic BP Location Tested BP Systolic BP Type 62 L arm 106 Fetus Heart Rate Present A 148 Present Fetus Movement A Yes Comments heartburn Flowsheet Date 06/18/2025 Sierra Score Blood Edema Fundus Height Fundus Units Glucose Ketones Leukocytes Nitrite Labor Signs Protein Cervic Dilation Cervic Effacement Cervic Station Type Weight in lbs Pre/Post Dialysis Refused Weight 229.9705095032 BP Diastolic BP Location Tested BP Systolic [...] Weight in lbs Pre/Post Dialysis Refused Weight 234.417752847109 BP Diastolic BP Location Tested BP Systolic [...] Weight in lbs Pre/Post Dialysis Refused Weight 232.729244340338 BP Diastolic BP Location Tested BP Systolic [...] Weight in lbs Pre/Post Dialysis Refused Weight 236.625312382220 BP Diastolic BP Location Tested BP Systolic BP Type 76 120 Fetus Heart Rate Present A 144 Present Fetus Movement A Yes Comments mild swelling, heartburn int ermittent Flowsheet Date 08/13/2025 Sierra Score Blood Edema Fundus Height Fundus Units Glucose Ketones Leukocytes Nitrite Labor Signs Protein Cervic Dilation Cervic Effacement Cervic Station 34 cm none trace [place]oss[place] Mata neg Type Weight in lbs Pre/Post Dialysis Refused Weight 239.325953119168 BP Diastolic BP Location Tested BP Systolic [...] Weight in lbs Pre/Post Dialysis Refused Weight 241.281791134397 BP Diastolic BP Location Tested BP Systolic [...] Weight in lbs Pre/Post Dialysis Refused Weight 241.072697557275 BP Diastolic BP Location Tested BP Systolic [...] Weight in lbs Pre/Post Dialysis Refused Weight 243.062109462306 BP Diastolic BP Location Tested BP Systolic BP Type 70 120 Fetus Heart Rate Present Fetus Movement Comments Flowsheet Date 09/10/2025 Sierra Score Blood Edema Fundus Height Fundus Units Glucose Ketones Leukocytes Nitrite Labor Signs Protein Cervic Dilation Cervic Effacement Cervic Station none trace Negative [place] Mata neg 2cm 70% -3 Type Weight in lbs Pre/Post Dialysis Refused Weight 243.925520543369 BP Diastolic BP Location Tested BP Systolic [...] Weight in lbs Pre/Post Dialysis Refused Weight 242.952534802620 BP Diastolic BP Location Tested BP Systolic BP Type 70 122 Fetus Heart Rate Present A 164 Present Fetus Movement A Yes Comments low back pain, vaginal press ure, swelling in hands/feet Flowsheet Date 09/24/2025 Sierra Score Blood Edema Fundus Height Fundus Units Glucose Ketones Leukocytes Nitrite Labor Signs Protein Cervic Dilation Cervic Effacement Cervic Station none 1+ Negative [place] Mata trace 3cm 70% -4 Type Weight in lbs Pre/Post Dialysis Refused Weight 244.324513928890 BP Diastolic BP Location Tested BP Systolic [...] Weight in lbs Pre/Post Dialysis Refused Weight 248.843571949595 BP Diastolic BP Location Tested BP Systolic [...] Date of Delivery false Thalassemia (Upper Sorbian, Azeri, Mediterranean, Or Background): MCV < 80 false Neural Tube Defect (Meningomyelocele, Spina Bifi da, Or Anencephaly) false Congenital Heart Defect false Down Syndrome false Maco-Sachs (eg, Rastafarian, Cajun, Hebrew-Trego) f alse Dustin Disease false Sickle Cell [...]
--- OUTSIDE RECORDS SUMMARY | 2025-09-25 15:06 | XMS_ITS | Continuity of Care Document ---
Author Organization [facility] Fabio Myers [facility] Rafael, LFelisha, [facility] ([facility]) Address [address] [place] [address] Assessment No assessment recorded. Plan of Treatment Reminders Order Date Submit Date Provider Last Modified By Organization Details Last Modified Time Details Appointments RETURN OB 2024 01:15P M Alvaro Angelo MD Not available Not available Not available Lab CBC 2024 025 [facility], [address], [address], [place], [address], 09/06/2025 09:32:26 CMP, serum or plasma 2024 025 [facility], [address], [address], [place], [address], 09/06/2025 09:46:52 lipid panel, blood 2024 025 [facility] Lab, [address], [address], [place], [address], 09/06/2025 09:46:55 thyrotrop in, QN, serum or plasma 2024 025 [facility] Lab, [address], [address], [place], [address], 09/06/2025 10:02:31 hemoglobi n A1C/hemog lobin total, QN, blood 2024 025 [facility] [address], [facility] 1, [place], [address], 09/06/2025 12:51:07 Referral None recorded. Procedures None recorded. Surgeries None recorded. Imaging None recorded. Medication Orders None recorded. Patient TargetsNo targets recorded. Patient InstructionsNo instructions recorded. Reason for Referral None Reported. Results Created Date Observation Date Name Description Value Unit Range Abnormal Flag Note LastModifiedBy Organization Detail LastModifiedTime 02/27/2002/27/2025 URINA LYSIS , COMPL ETE color YELLOW yellow normal Not Available [address], [address], 02/27/2025 22:28:50 02/27/20 25 02/27/2025 URINA LYSIS , COMPL ETE appearance CLEAR clear normal Not Available [address], [address], 02/27/2025 22:28:50 02/27/20 25 02/27/2025 URINA LYSIS , COMPL ETE specific gravity 1.012 1.001- 1.035 normal Not Available [address], [address], 02/27/2025 22:28:50 02/27/20 25 02/27/2025 URINA LYSIS , COMPL ETE pH 7.5 5.0-8. 0 normal Not Available [address], [address], 02/27/2025 22:28:50 02/27/20 25 02/27/2025 URINA LYSIS , COMPL ETE glucose NEGATI VE negati ve normal Not Available [address], [address], 02/27/2025 22:28:50 02/27/20 25 02/27/2025 URINA LYSIS , COMPL ETE bilirubin NEGATI VE negati ve normal Not Available [address], [address], 02/27/2025 22:28:50 02/27/20 25 02/27/2025 URINA LYSIS , COMPL ETE ketones NEGATI VE negati ve normal Not Available [address], [address], 02/27/2025 22:28:50 02/27/20 25 02/27/2025 URINA LYSIS , COMPL ETE occult blood NEGATI VE negati ve normal Not Available [address], [address], 02/27/2025 22:28:50 02/27/20 25 02/27/2025 URINA LYSIS , COMPL ETE protein NEGATI VE negati ve normal Not Available [address], [address], 02/27/2025 22:28:50 02/27/20 25 02/27/2025 URINA LYSIS , COMPL ETE nitrite NEGATI VE negati ve normal Not Available [address], [address], 02/27/2025 22:28:50 02/27/20 25 02/27/2025 URINA LYSIS , COMPL ETE leukocyte esterase TRACE negati ve abnormal Not Available [address], [address], 02/27/2025 22:28:50 02/27/20 25 02/27/2025 URINA LYSIS , COMPL ETE WBC NONE SEEN /hpf < or = 5 normal Not Available [address], [address], 02/27/2025 22:28:50 02/27/20 25 02/27/2025 URINA LYSIS , COMPL ETE RBC NONE SEEN /hpf < or = 2 normal Not Available [address], [address], 02/27/2025 22:28:50 02/27/20 25 02/27/2025 URINA LYSIS , COMPL ETE squamous epithelial cells 6-10 /hpf < or = 5 abnormal Not Available [address], [address], 02/27/2025 22:28:50 02/27/20 25 02/27/2025 URINA LYSIS , COMPL ETE bacteria NONE SEEN /hpf none seen normal Not Available [address], [address], 02/27/2025 22:28:50 02/27/20 25 02/27/2025 URINA LYSIS , COMPL ETE hyaline cast NONE SEEN /lpf none seen normal Not Available [address], [address], 02/27/2025 22:28:50 02/27/20 25 02/27/2025 URINA LYSIS , COMPL ETE note This urine was jim zed for the prese nce of WBC, RBC, bacte terry, casts , and other forme d eleme nts. Only those eleme nts seen were repor bruce. Not Available [address], [address], 02/27/2025 22:28:50 02/27/20 25 02/27/2025 CBC (INCL UDES DIFF/ PLT) white blood cell count 8.9 thous and/u L 3.8-10 .8 normal Not Available [address], [address], 02/27/2025 22:28:51 02/27/20 25 02/27/2025 CBC (INCL UDES DIFF/ PLT) red blood cell count 4.42 erick on/uL 3.80-5 .10 normal Not Available [address], [address], 02/27/2025 22:28:51 02/27/20 25 02/27/2025 CBC (INCL UDES DIFF/ PLT) hemoglobin 13.2 g/dL 11.7-1 5.5 normal Not Available [address], [address], 02/27/2025 22:28:51 02/27/2002/27/2025 CBC (INCL UDES DIFF/ PLT) hematocrit 41.4 % 35.0-4 5.0 normal Not Available [address], [address], 02/27/2025 22:28:51 02/27/2002/27/2025 CBC (INCL UDES DIFF/ PLT) MCV 93.7 fL 80.0-1 00.0 normal Not Available [address], [address], 02/27/2025 22:28:51 02/27/2002/27/2025 CBC (INCL UDES DIFF/ PLT) MCH 29.9 pg 27.0-3 3.0 normal Not Available [address], [address], 02/27/2025 22:28:51 02/27/2002/27/2025 CBC (INCL UDES DIFF/ PLT) MCHC 31.9 g/dL 32.0-3 6.0 low For adult s, a sligh t decre ase in the calcu lated MCHC value (in the range of 30 to 32 g/dL) is most likel y not clini solomon signi ray t; eliana er, it shoul d be inter prete d with cauti on in [facility] with other red cell mariana eters and the patie nt's clini rajiv condi tion. Not Available [facility] [address], [address], 02/27/2025 22:28:51 02/27/2002/27/2025 CBC (INCL UDES DIFF/ PLT) RDW 12.5 % 11.0-1 5.0 normal Not Available [address], [address], 02/27/2025 22:28:51 02/27/20 25 02/27/2025 CBC (INCL UDES DIFF/ PLT) platelet count 294 thous and/u L 140-40 0 normal Not Available [address], [address], 02/27/2025 22:28:51 02/27/20 25 02/27/2025 CBC (INCL UDES DIFF/ PLT) MPV 11.6 fL 7.5-12 .5 normal Not Available [address], [address], 02/27/2025 22:28:51 02/27/20 25 02/27/2025 CBC (INCL UDES DIFF/ PLT) absolute neutrophils 6408 cells /uL 1500-7 800 normal Not Available [address], [address], 02/27/2025 22:28:51 02/27/20 25 02/27/2025 CBC (INCL UDES DIFF/ PLT) absolute lymphocytes 1833 cells /uL 850-39 00 normal Not Available [address], [address], 02/27/2025 22:28:51 02/27/20 25 02/27/2025 CBC (INCL UDES DIFF/ PLT) absolute monocytes 481 cells /uL 200-95 0 normal Not Available [address], [address], 02/27/2025 22:28:51 02/27/20 25 02/27/2025 CBC (INCL UDES DIFF/ PLT) absolute eosinophils 151 cells /uL 15-500 normal Not Available [address], [address], 02/27/2025 22:28:51 02/27/20 25 02/27/2025 CBC (INCL UDES DIFF/ PLT) absolute basophils 27 cells /uL 0-200 normal Not Available [address], [address], 02/27/2025 22:28:51 02/27/20 25 02/27/2025 CBC (INCL UDES DIFF/ PLT) neutrophils 72 % normal Not Available [facility] [address], [address], 02/27/2025 22:28:51 02/27/20 25 02/27/2025 CBC (INCL UDES DIFF/ PLT) lymphocytes 20.6 % normal Not Available [facility] [address], [address], 02/27/2025 22:28:51 02/27/20 25 02/27/2025 CBC (INCL UDES DIFF/ PLT) monocytes 5.4 % normal Not Available [facility] [address], [address], 02/27/2025 22:28:51 02/27/20 25 02/27/2025 CBC (INCL UDES DIFF/ PLT) eosinophils 1.7 % normal Not Available [facility] [address], [address], 02/27/2025 22:28:51 02/27/20 25 02/27/2025 CBC (INCL UDES DIFF/ PLT) basophils 0.3 % normal Not Available [facility] [address], [address], 02/27/2025 22:28:51 02/27/20 25 02/27/2025 HEPAT ITIS B SURFA CE ANTIG EN W/REF L CONFI RM hepatitis B surface antigen NON-RE ACTIVE non-re active normal For addit ional infor sabrina roth e refer to http: //divina raphael.patience stdia gnost ics.c om/fa q/FAQ 202 (This link is being provi ded for infor matio nal/ educa jhonathan l purpo ses only. ) Not Available [facility] [address] [address] [place], [address], 02/27/2025 22:28:52 02/27/20 25 02/27/2025 HEPAT ITIS [...] a test for HCV RNA (test code 20556 ) is sugge sted. For addit ional infor [facility] donavon pleas e refer to http: //[facility] stdia gnost ics.c om/fa q/FAQ 22v1 (This link is being provi ded for infor matio nal/ educa jhonathan l purpo ses only. ) Not Available [facility] - [address] [address] [place], [address], 02/27/2025 22:28:53 02/27/20 25 02/27/2025 RUBEL LA [...] la virus . Not Available [facility] [address] [address] [place], [address], 02/27/2025 22:28:53 02/27/20 25 02/27/2025 HIV 1/2 [...] matio n pleas e refer to http: //[facility] cattodd n.que stdia gnost ics.c om/fa q/FAQ 106 (This link is being provi ded for infor matio nal/ educa jhonathan l purpo ses only. ) The perfo rmanc e of this assay has not been clini solomon valid ated in patie nts less than 2 years old. Not Available [facility] [address] [place], [address], 02/27/2025 22:28:54 02/27/20 25 02/27/2025 RPR (DX) W/REF L TITER AND T. PALLI DUM AB, IA RPR (DX) w/refl titer and confirmatory testing NON-RE ACTIVE non-re active normal No labor atory evide nce of syphi lis. If recen t expos ure is suspe cted, submi t a new sampl e in 2-4 weeks . Not Available [facility] [address] [place], [address], 02/27/2025 22:28:55 02/27/20 25 02/27/2025 ANTIB MAICOL [...] alloi mmuni zed pregn benjamin. Not Available [employer] [address] [address] [place], [address], 02/27/2025 22:28:56 02/27/2002/27/2025 ABO GROUP AND RH TYPE ABO group O Not Available [employer] [address] [address] [place], [address], 02/27/2025 22:28:57 02/27/2002/27/2025 ABO GROUP AND RH TYPE Rh type RH(D) POSITI VE For addit ional infor sabrina roth e refer to http: //[facility] hayley Rincon stDia gnost ics.c om/fa q/FAQ 111 (This link is being provi ded for infor amy trujillo/ inna monique purpo ses only. ) Not Available [employer] [address] [address] [place], [address], 02/27/2025 22:28:57 02/27/20 25 02/27/2025 DRUG MONIT OR, PANEL 1, SCREE N, URINE amphetamines NEGATI VE NG/mL <500 See Note A See Note A Not Available [facility] [address] [address] [place], [address], 02/27/2025 22:28:58 02/27/2002/27/2025 DRUG MONIT OR, PANEL 1, SCREE N, URINE barbiturates NEGATI VE NG/mL <300 See Note A See Note A Not Available [facility] [address] [address] [place], [address], 02/27/2025 22:28:58 02/27/20 25 02/27/2025 DRUG MONIT OR, PANEL 1, SCREE N, URINE benzodiazepi duane NEGATI VE NG/mL <100 See Note A See Note A Not Available [employer] [address] [address] [address], [place], [address], 02/27/2025 22:28:58 02/27/20 25 02/27/2025 DRUG MONIT OR, PANEL 1, SCREE N, URINE cocaine metabolite NEGATI VE NG/mL <150 See Note A See Note A Not Available [employer] [address] [address] [address], [place], [address], 02/27/2025 22:28:58 02/27/20 25 02/27/2025 DRUG MONIT OR, PANEL 1, SCREE N, URINE marijuana metabolite NEGATI VE NG/mL <20 See Note A See Note A Not Available [employer] [address] [address] [address], [place], [address], 02/27/2025 22:28:58 02/27/20 25 02/27/2025 DRUG MONIT OR, PANEL 1, SCREE N, URINE methadone metabolite NEGATI VE NG/mL <100 See Note A See Note A Not Available [employer] [address] [address] [address], [place], [address], 02/27/2025 22:28:58 02/27/20 25 02/27/2025 DRUG MONIT OR, PANEL 1, SCREE N, URINE opiates NEGATI VE NG/mL <100 See Note A See Note A Not Available [employer] [address] [address] [address], [place], [address], 02/27/2025 22:28:58 02/27/20 25 02/27/2025 DRUG MONIT OR, PANEL 1, SCREE N, URINE oxycodone NEGATI VE NG/mL <100 See Note A See Note A Not Available [employer] [address] [address] [address], [place], [address], 02/27/2025 22:28:58 02/27/20 25 02/27/2025 DRUG MONIT OR, PANEL 1, SCREE N, URINE phencyclidin e NEGATI VE NG/mL <25 See Note A See Note A Not Available [address] [address] [address], [place], [address], 02/27/2025 22:28:58 02/27/20 25 02/27/2025 DRUG MONIT OR, PANEL 1, SCREE N, URINE creatinine 108.1 mg/dL > or = 20.0 Not Available [facility] [address] [address] [address], [place], [address], 02/27/2025 22:28:58 02/27/20 25 02/27/2025 DRUG MONIT OR, PANEL 1, SCREE N, URINE pH 7.7 4.5-9. 0 Not Available [address] [address] [address], [place], [address], 02/27/2025 22:28:58 02/27/20 25 02/27/2025 DRUG MONIT OR, PANEL 1, SCREE N, URINE oxidant NEGATI VE mcg/m L <200 Not Available [address] [address] [address], [place], [address], 02/27/2025 22:28:58 02/27/20 25 02/27/2025 DRUG MONIT [...] by a defin itive metho d. Healt hcare Provi ders needi ng Inter preta tion yanci tance , pleas e conta ct us at 1.877 .40.R XTOX (1.87 [phone] .[phone] ) M-F, 8am to 10pm EST Not Available [address], [address], 02/27/2025 22:28:59 02/27/20 25 02/27/2025 CULTU RE, URINE , ROUTI NE culture, urine, routine SEE NOTE CULTU RE, URINE , ROUTI NE Micro Numbe r: [id number] Test Statu s: Final Speci men Sourc e: Urine Speci men Quali ty: Adequ ate Resul t: No Growt h Not Available [address], [address], 02/27/2025 22:28:59 02/27/20 25 03/08/2025 THINP REP TIS PAP (REFL ) HPV MRNA E6/E7 clinical information: normal Pregn ant Not Available [address], [address], 03/08/2025 08:16:51 02/27/20 25 03/08/2025 THINP REP TIS PAP (REFL ) HPV MRNA E6/E7 LMP: normal NONE GIVEN Not Available [address], [address], 03/08/2025 08:16:51 02/27/2003/08/2025 THINP REP TIS PAP (REFL ) HPV MRNA E6/E7 prev. Pap: normal NONE GIVEN Not Available [address], [address], 03/08/2025 08:16:51 02/27/20 25 03/08/2025 THINP REP TIS PAP (REFL ) HPV MRNA E6/E7 prev. BX: normal NONE GIVEN Not Available [address], [address], 03/08/2025 08:16:51 02/27/20 25 03/08/2025 THINP REP TIS PAP (REFL ) HPV MRNA E6/E7 source: normal Cervi x, Endoc ervix Not Available [address] [address] [place], [address], 03/08/2025 08:16:51 02/27/20 25 03/08/2025 THINP REP TIS PAP (REFL ) HPV MRNA E6/E7 statement of adequacy: normal Satis facto ry for evalu ation . Endoc ervic al/tr ansfo rmati on zone compo nent prese nt. Not Available [address] [address] [address] , [place], [address], 03/08/2025 08:16:51 02/27/2003/08/2025 THINP REP TIS PAP (REFL ) HPV MRNA E6/E7 general categorizati on: abnormal Cytol ogy Resul ts: Epith elial Cell Abnor malit y Not Available [address] [address] [address] , [place], [address], 03/08/2025 08:16:51 02/27/20 25 03/08/2025 THINP REP TIS PAP (REFL ) HPV MRNA E6/E7 interpretati on/result: abnormal Low Grade Squam ous Intra epith elial Lesio n (LSIL ) Not Available [address] [address] [address] , [place], [address], 03/08/2025 08:16:51 02/27/2003/08/2025 THINP REP TIS PAP (REFL ) HPV MRNA E6/E7 comment: normal This Pap test has been evalu ated with compu ter yanci bruce techn ology . Sugge st clini rajiv corre latio n and follo w-up as clini solomon appro priat e Not Available [address] [address] [place], [address], 03/08/2025 08:16:51 02/27/20 25 03/08/2025 THINP REP TIS PAP (REFL ) HPV MRNA E6/E7 cytotechnolo gist: normal KMS, CT( CP) CT Scree pat locat ion: [facility] [address] [address] [place] [address] Not Available [employer] [address] [address] [place], [address], 03/08/2025 08:16:51 02/27/20 25 03/08/2025 THINP REP TIS PAP (REFL ) HPV MRNA E6/E7 pathologist: normal Alisha donavon monique M.D., Board Certi fied in Anato jesús Patho logy and Cytop athol ogy. Phone : [phone] (elec troni c signa ture) Patho logis t Relea se Date/ Time: 03/06 09:25 AM Not Available [employer] [address] [address] [place], [address], 03/08/2025 08:16:51 02/27/2003/08/2025 THINP REP TIS PAP [...] kierra and curre nt clini rajiv infor matio n. Not Available [facility] [address] [address] [place], [address], 03/08/2025 08:16:51 02/27/20 25 03/08/2025 HPV MRNA [...] infor sabrina roth e refer to http: //[facility] raphael.que stdia gnost ics.c om/fa q/FAQ 129v1 (This link if provi ded for infor amy raphael/ educa jhonathan l purpo ses only. ) Not Available [address] [address] [place], [address], 03/08/2025 08:16:53 02/27/2002/26/2025 CT + NG + TV, DNA, urine /swab Chlamydia negati ve Not Available [facility] ([facility]) [address] [place], [address], 02/25/2025 18:55:26 02/27/20 25 02/26/2025 CT + NG + TV, DNA, urine /swab Gonorrhea negati ve Not Available [facility] ([facility]) [address] [place], [address], 02/25/2025 18:55:26 02/27/20 25 02/26/2025 CT + NG + TV, DNA, urine /swab Trichomonas negati ve Not Available [facility] ([facility]) [address] [place], [address], 02/25/2025 18:55:26 07/02/20 25 07/02/2025 CBC WBC 11.1 x10 4.0-10 .5 high Not Available [facility] [address] [place] [address], [place], [address], 07/02/2025 10:24:57 07/02/20 25 07/02/2025 CBC RBC 3.96 x10 3.50-5 .50 Not Available [facility] [address] [facility] 1, [place], [address], 07/02/2025 10:24:57 07/02/20 25 07/02/2025 CBC HGB 12.0 g/dL 12.0-1 6.0 Not Available [facility] [address] [facility] 1, [place], [address], 07/02/2025 10:24:57 07/02/2007/02/2025 CBC HCT 37.1 % 37.0-4 7.0 Not Available [facility] [address] [facility] 1, [place], [address], 07/02/2025 10:24:57 07/02/20 25 07/02/2025 CBC MCV 93.8 fL 80.0-9 9.9 Not Available [facility] [address] [facility] 1, [place], [address], 07/02/2025 10:24:57 07/02/2007/02/2025 CBC MCH 30.4 pg 27.0-3 2.0 Not Available [facility] [address] [facility] [address] [facility] 1, [place], [address], 07/02/2025 10:24:57 07/02/20 25 07/02/2025 CBC MCHC 32.4 g/dL 32.0-3 6.0 Not Available [facility] [address] [facility] [facility] 1, [place], [address], 07/02/2025 10:24:57 07/02/2007/02/2025 CBC RDW 12.9 % 11.5-1 4.5 Not Available [facility] [address] [facility] [address] [facility] 1, [place], [address], 07/02/2025 10:24:57 07/02/20 25 07/02/2025 CBC plt 227.7 x10 140.0- 451.0 Not Available [facility] [address] [facility] [address] [facility] 1, [place], [address], 07/02/2025 10:24:57 07/02/20 25 07/02/2025 CBC lymphocytes % 15.5 % 20.0-5 0.0 low Not Available [facility] [address] [facility] [address] [facility] 1, [place], [address], 07/02/2025 10:24:57 07/02/20 25 07/02/2025 CBC granulcytes % 78.3 % 30.0-7 0.0 high Not Available [facility] [address] [facility], [place], [address], 07/02/2025 10:24:57 07/02/20 25 07/02/2025 CBC monocytes % 4.2 % 2.0-16 .0 Not Available [facility] [address] [address], [place], [address], 07/02/2025 10:24:57 07/02/20 25 07/02/2025 CBC granulcytes# 8.7 x10 Not Jenny ilable [facility] [address] [facility] 1, [place], [address], 07/02/2025 10:24:57 07/02/20 25 07/02/2025 CBC lymphocytes # 1.7 x10 Not Available [facility] [address] [facility], [place], [address], 07/02/2025 10:24:57 07/02/20 25 07/02/2025 CBC monocytes # 0.5 x10 Not Avai lable [facility] [address] [facility], [place], [address], 07/02/2025 10:24:57 07/02/20 25 07/02/2025 GLUCO SE SCREE N glucose screen 135.0 mg/dL Not Available [facility] [address] [facility] [address], [place], [address], 07/02/2025 10:30:30 07/11/20 25 07/11/2025 GLUCO SE SCREE N glucose screen 133.0 mg/dL Not Available [facility] [address] [facility] [address], [place], [address], 07/11/2025 10:37:03 08/27/20 25 09/02/2025 CULTU RE, GROUP B STREP WITH SUSCE PTIBI LITY culture, group B strep with susceptibili ty SEE NOTE abnormal CULTU RE, GROUP B STREP WITH SUSCE PTIBI LITY Micro Numbe r: [id number] Test Statu s: Final Speci men [...] See Thera py Comme nts Not Available [employer] [facility] [address] [address], [place], [address], 09/02/2025 14:26:34 09/06/20 25 09/06/2025 CBC WBC 9.9 x10 4.0-10 .5 Not Available [facility] [address], [place], [address], 09/06/2025 09:32:26 09/06/20 25 09/06/2025 CBC RBC 4.29 x10 3.50-5 .50 Not Available [facility] [address], [place], [address], 09/06/2025 09:32:26 09/06/20 25 09/06/2025 CBC HGB 12.6 g/dL 12.0-1 6.0 Not Available [facility] [address], [place], [address], 09/06/2025 09:32:26 09/06/20 25 09/06/2025 CBC HCT 39.4 % 37.0-4 7.0 Not Available [facility] [address], [place], [address], 09/06/2025 09:32:26 09/06/20 25 09/06/2025 CBC MCV 91.9 fL 80.0-9 9.9 Not Available [facility] [address], [place], [address], 09/06/2025 09:32:26 09/06/20 25 09/06/2025 CBC MCH 29.3 pg 27.0-3 2.0 Not Available [facility] [address], [place], [address], 09/06/2025 09:32:26 09/06/20 25 09/06/2025 CBC MCHC 31.9 g/dL 32.0-3 6.0 low Not Available [facility] [address] Miguel[address] [facility] [address], [place], [address], 09/06/2025 09:32:26 09/06/20 25 09/06/2025 CBC RDW 13.2 % 11.5-1 4.5 Not Available [facility] [address] Miguelh[address] [facility] [address] [facility] 1, [place], [address], 09/06/2025 09:32:26 09/06/20 25 09/06/2025 CBC plt 216.3 x10 140.0- 451.0 Not Available [facility] [address] [facility] [address] [facility] 1, [place], [address], 09/06/2025 09:32:26 09/06/20 25 09/06/2025 CBC lymphocytes % 21.4 % 20.0-5 0.0 Not Available [facility] [address] [facility] [address], [place], [address], 09/06/2025 09:32:26 09/06/20 25 09/06/2025 CBC granulcytes % 70.6 % 30.0-7 0.0 high Not Available [facility] [address] [facility] [address], [place], [address], 09/06/2025 09:32:26 09/06/20 25 09/06/2025 CBC monocytes % 5.8 % 2.0-16 .0 Not Available [facility] [address] [facility] [address], [place], [address], 09/06/2025 09:32:26 09/06/20 25 09/06/2025 CBC granulcytes# 7.0 x10 Not Jenny ilable [facility] [address] [facility] [address], [place], [address], 09/06/2025 09:32:26 09/06/20 25 09/06/2025 CBC lymphocytes # 2.1 x10 Not Available [facility] [address] [facility] [address], [place], [address], 09/06/2025 09:32:26 09/06/20 25 09/06/2025 CBC monocytes # 0.6 x10 Not Avai lable [facility] [address] [facility] [address], [place], [address], 09/06/2025 09:32:26 09/06/20 25 09/06/2025 CMP (FEMA LE) glucose 84.0 mg/dL 60.0-9 9.0 Not Available [facility] [address] [facility], [place], [address], 09/06/2025 09:46:52 09/06/2009/06/2025 CMP (FEMA LE) BUN (blood urea nitrogen) 5.0 mg/dL 10.0-2 6.0 low Not Available [facility] [address] [facility] [address], [place], [address], 09/06/2025 09:46:52 09/06/20 25 09/06/2025 CMP (FEMA LE) creatinine (serum) 0.5 mg/dL 0.4-1. 5 Not Available [facility] [address] [address], [place], [address], 09/06/2025 09:46:52 09/06/20 25 09/06/2025 CMP (FEMA LE) BUN/creatini ne ratio 10.00 ratio Not Available [facility] [address] [facility] [address], [place], [address], 09/06/2025 09:46:52 09/06/20 25 09/06/2025 CMP (FEMA LE) eGFR calculated 154.0 Not Available [facility] [address] [address], [place], [address], 09/06/2025 09:46:52 09/06/20 25 09/06/2025 CMP (FEMA LE) total protein 7.0 g/dL 6.0-8. 5 Not Available [facility] [address] [facility], [place], [address], 09/06/2025 09:46:52 09/06/20 25 09/06/2025 CMP (FEMA LE) total bilirubin 0.6 mg/dL 0.2-1. 3 Not Available [facility] [address] [facility] 1, [place], [address], 09/06/2025 09:46:52 09/06/2009/06/2025 CMP (FEMA LE) albumin 4.1 g/dL 3.5-5. 5 Not Available [facility] [address] [facility] [address], [place], [address], 09/06/2025 09:46:52 09/06/20 25 09/06/2025 CMP (FEMA LE) globulin 2.9 calc Not Available [facility] [address] [facility] [address], [place], [address], 09/06/2025 09:46:52 09/06/20 25 09/06/2025 CMP (FEMA LE) AST (SGOT) 33.0 U/L 0.0-46 .0 Not Available [facility] [address] [facility] [place], [address], 09/06/2025 09:46:52 09/06/20 25 09/06/2025 CMP (FEMA LE) altv (SGPT) 22.0 U/L 13.0-6 9.0 normal Not Available [facility] [address] [facility] 1, [place], [address], 09/06/2025 09:46:52 09/06/20 25 09/06/2025 CMP (FEMA LE) A/G ratio 1.4 ratio Not Available [facility] [address] [facility] [address], [place], [address], 09/06/2025 09:46:52 09/06/2009/06/2025 CMP (FEMA LE) ALP phos 160.0 U/L 30.0-1 40.0 abnormal Not Available [facility] [address] [facility] [address], [place], [address], 09/06/2025 09:46:52 09/06/2009/06/2025 CMP (FEMA LE) calcium 9.0 mg/dL 8.4-10 .5 Not Available [facility] [address] [facility] [address], [place], [address], 09/06/2025 09:46:52 09/06/2009/06/2025 CMP (FEMA LE) sodium 137.0 mmol/ L 136.0- 145.0 Not Available [facility] [address] [facility] [address], [place], [address], 09/06/2025 09:46:52 09/06/2009/06/2025 CMP (FEMA LE) potassium 3.4 mmol/ L 3.5-5. 1 low Not Available [facility] [address] [address], [place], [address], 09/06/2025 09:46:52 09/06/2009/06/2025 CMP (FEMA LE) chloride 105.0 mmol/ L 98.0-1 10.0 normal Not Available [facility] [address] [facility] [address], [place], [address], 09/06/2025 09:46:52 09/06/2009/06/2025 CMP (FEMA LE) C02 24.0 mmol/ L 22.0-3 1.0 Not Available [facility] [address] [facility] [address], [place], [address], 09/06/2025 09:46:52 09/06/2009/06/2025 CMP (FEMA LE) anion gap 8.0 calc Not Available [facility] [address] [facility] [address], [place], [address], 09/06/2025 09:46:52 09/06/2009/06/2025 CMP (FEMA LE) osmolality 279.9 calc Not Available [facility] [address] [facility] [address], [place], [address], 09/06/2025 09:46:52 09/06/2009/06/2025 LIPID PROFI LE (FEMA LE) cholesterol 195.0 mg/dL 0.0-20 0.0 Not Available [facility] [address] [facility] [address], [place], [address], 09/06/2025 09:46:55 09/06/20 25 09/06/2025 LIPID PROFI LE (FEMA LE) trig 114.0 mg/dL 0.0-15 0.0 Not Available [facility] [address] [facility] [address], [place], [address], 09/06/2025 09:46:55 09/06/20 25 09/06/2025 LIPID PROFI LE (FEMA LE) HDL - direct 74.0 mg/dL >40.0 Not Available [facility] [address] [facility] [address], [place], [address], 09/06/2025 09:46:55 09/06/2009/06/2025 LIPID PROFI LE (FEMA LE) VLDL - direct 22.8 mg/dL Not Available [facility] [address] [facility] [address], [place], [address], 09/06/2025 09:46:55 09/06/2009/06/2025 LIPID PROFI LE (FEMA LE) LDL - direct 98.2 mg/dL 0.0-13 0.0 Not Available [facility] [address] [facility] [address], [place], [address], 09/06/2025 09:46:55 09/06/20 25 09/06/2025 TSH TSH 1.69 uIU/m L 0.49-3 .82 Not Available [facility] [address] [facility] [address], [place], [address], 09/06/2025 10:02:31 09/06/20 25 09/06/2025 HBA1C hemaglobin A1C 5.4 4.2-6. 5 Not Available [facility] [address] [facility] [address], [place], [address], 09/06/2025 12:51:07 02/19/20 25 02/12/2025 US, obste tric, 1st trime ster No observ ation record ed. Not Available 02/19 09:09:34 04/25/20 25 04/18/2025 US, obste tric, follo w-up No observ ation record ed. [email or web address] [facility] [address] [place], [address], 04/29/2025 09:24:34 05/11/20 25 05/07/2025 US, obste tric, 2nd trime ster No observ ation record ed. [facility] [address] [place], [address], 05/13/2025 17:57:21 07/05/20 25 07/02/2025 imagi ng/di agnos tic resul t No observ ation record ed. [facility] [address] [place], [address], 07/09/2025 10:35:54 Result Notes None recorded. Problems Name Problem SNOMED Code Status Onset Date Resolution Date Notes Provider Name and Address Organization Details Recorded Time Rheumatoid arthritis 35836423 Active 2022 KERWIN roper [facility] 14:16:25 Pain of knee region 3254579348 Completed 202301/24/2025 KERWIN GUME roper [facility] 14:16:23 Family history of diabetes mellitus 385671517 Active 2023 KERWIN roper [facility] 5 14:16:18 Normal 09265977 Active 2024 [facility] 10:22:35 Normal 72716578 Active 2024 ROXI Vang [facility] 5 10:22:35 Placenta previa partialis 45914634 Active 2024 Alvaro Angelo MD [address] [place] [address], [phone], [facility] 5 02:46:26 Low-lying placenta 070627729 Active 2024 Alvaro Angelo MD [address] [place] [address], [phone], [facility] 5 11:36:47 Problem Notes None recorded. Procedures Surgical History Date Name Laterality Status Provider Name and Address Organization Details Recorded Time 02/27/20 Date of Last Pap Smear completed KERWINMARLY BERRYY [facility] 09/02/2025 18:39:21 02/27/20 liquid based cervical cytology screening [facility] 09/02/2025 18:39:54 01/31/20 24 colposcopy completed [facility] 01/24/2025 14:17:49 01/31/20 24 hysteroscopy completed [facility] 01/24/2025 14:18:46 arthroscopy of left knee joint completed [facility] 01/24/2025 14:17:01 cholecystectomy completed [facility] 01/24/2025 14:17:33 Imaging Results None recorded. Procedure Notes None recorded. Medical Equipment None Reported. Allergies Allergen ID Allergen Name Allergen Category Reaction Reaction Severity Criticality Documentation Date Start Date Code Code System Note Provider Name and Address Organization Details Recorded Time 24393 Bactrim medicatio n hives moderate Not available 05/21/2023 03629 9 RxNorm TREBA NEUSCHWAN [facility] 5 15:30:03 29780 Product containin g penicilli n (product) medicatio n hives moderate Not available 05/21/2023 97254 8001 SNOMED TREBA NEUSCHWAN [facility] 15:30:03 20689 Augmentin medicatio n hives moderate Not available 01/24/2025 65386 2 RxNorm [facility] 5 14:19:18 45407 Celebrex medicatio n other moderate Not available 01/24/2025 63378 7 RxNorm TREBA NEUSCHWAN KAVITH[facility] 5 15:30:03 84780 Substance with sulfonami de structure and antibacte rial mechanism of action (substanc e) medicatio n hives moderate Not available 04/18/2025 81017 8003 SNOMED TREBA NEUSCHWAN [facility] null, [facility], [facility] 5 15:30:03 10576 amoxicill in / clavulana te medicatio n hives Not available [facility] 09/06/20252022 03893 RxNorm Yessy ates PCN and amoxi cilli n fine Not Available anna - External Data Service - prod 5 07:58:34 09159 celecoxib medicatio n Not available Not available [facility] 09/06/20252022 11420 7 RxNorm Not Available anna - External [...] Organization Details Last Updated DateTime 170.18 cm 38.1 kg/m2 950250. 95 g 95 /min 98 % 120/70 mm[Hg] Leigh Pickett [facility] 5 08:20:14 Social History Question Answer Notes LastModified by Billogram Details LastModified Time Tobacco Smoking Status Former Smoker ANTONIO roper [facility] 01/24/2023 10:09:31 Are You Blind Or Do You Have Difficulty Seeing? No Information not available 01/24/2025 Are You Deaf Or Do You Have Serious Difficulty Hearing? No [email or web address] Information not available 01/24/2023 When Did You Quit Smoking? 1-5yearssinc elastcigaret te [email or web address] Information not available 01/24/2023 Do You Work In Healthcare? No Information not available 01/24/2025 What Was The Date Of Your Most Recent Tobacco Screening? 03/26/2025 [email or web address] Information not available 03/26/2025 What Is Your Relationship Status? Information not available 01/24/2025 Have You Recently Traveled Abroad? No Information not available 01/24/2023 Do You Have Difficulty Walking Or Climbing Stairs? No [email or web address] Information not available 01/24/2023 Sex: Unknown Functional [...] you have difficulty doing errands alone? No [email or web address] Information not available 01/24/2023 Are you able to care for yourself independently? 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 No [email or web address] Information not available 01/24/2023 Do you or have you ever used e-cigarettes or vape? Former user of electronic cigarettes Information not available 01/24/2025 Mental Status Question Answer Note LastModified by Organization D etails LastModified Time Do you have difficulty concentrating, remembering or making decisions? No [email or web address] Information no t available 01/24/2023 Family History Relationship Description Onset Age of this Age Resolved Age Notes LastModified by Organization Details LastModified Time Father Diabetes mellitus [email or web address] Not available 2023 09:43:45 Paternal Grandmother Malignant neoplasm of ovary [email or web address] Not available 10:54:13 Notes:Cancer Maternal Grandf ather: Brain Cancer Paternal Grandmother: Ovarian Cancer Medical History Condition Response Coronary Artery Disease N Other N Gout N Kidney Stones N Blood Diseases N Hyperthyroidism N Breast Cancer N Blood Transfusion N Hypothyroidism N Depression N COPD N Lung Disease N Defects or Inherited Disease N Developmental [...] Recorded Time IPV 09/28/2000 completed Susan roper [facility] 10/09/2024 09:35:10 MMR 04/11/1996 completed Susan roper [facility] 10/09/2024 09:35:10 MMR 09/28/2000 completed Susan roper [facility] 10/09/2024 09:35:10 Tdap 11/17/2010 completed Susan roper [facility] 10/09/2024 09:35:10 Tdap 02/20/2015 completed Susan roper [facility] 10/09/2024 09:35:10 Hep B, unspecified formulation 1995 completed Susan roper [facility] 10/09/2024 09:35:10 Hep B, unspecified formulation 02/28/1996 completed Susan roper [facility] 10/09/2024 09:35:10 Hep B, unspecified formulation 1995 completed Susan roper [facility] 10/09/2024 09:35:10 OPV, trivalent 1995 completed Susan Wilson null, [facility] 10/09/2024 09:35:10 OPV, trivalent 02/28/1996 completed Susan Wilson null, [facility] 10/09/2024 09:35:10 OPV, trivalent 1995 completed Susan Wilson null, [facility] 10/09/2024 09:35:10 DTP-Hib 11/29/1996 completed Susan Wilson null, [facility] 10/09/2024 09:35:10 DTP-Hib 1995 completed Susan Wilson null, [facility] 10/09/2024 09:35:10 DTP-Hib 02/28/1996 completed Susan Wilson null, [facility] 10/09/2024 09:35:10 DTP-Hib 1995 completed Susan Wilson null, [facility] 10/09/2024 09:35:10 DTaP 09/28/2000 completed Susan Wilson null, [facility] 10/09/2024 09:35:10 Past Encounters Encounter ID Performer Location Encounter Start Date Encounter Closed Date Diagnosis/Indication Diagnosis SNOMED-CT Code Diagnosis ICD10 Code Diagnosis IMO Codes Diagnosis Note [id number] Alvaro Angelo MD [facility] ([facility]) [address] [place] [phone] 08/13/2025 10:44:33 08/13/2025 11:38:15 Normal 87951423 Z34.83 Gestation period, 34 weeks 50707796 Z3A.34 0631802 [id number] Alvaro Angelo MD [facility] ([facility]) [address] [place] [phone] 5 08/27/2025 10:35:57 08/27/2025 11:34:41 Normal 09832970 Z34.83 Gestation period, 36 weeks 96383203 Z3A.36 [id number] Alvaro Angelo MD [facility] ([facility]) [address] [place] [phone] 09/03/2025 10:32:59 09/03/2025 11:48:15 Multigravida 628914837 Z34.83 66479766 Gestation period, 37 weeks 24640558 Z3A.37 6906781 [id number] Giovani Yu MD [facility] ([facility]) [address] [place] [phone] 5 09/06/2025 07:58:00 09/11/2025 03:58:55 Adult health examination 951871211 Z00.00 [id number] LISSETH SETHI [facility] ([facility]) [address] [place] [phone] 5 09/06/2025 07:58:35 09/11/2025 03:58:55 Physical examination 3594074 Z00.00 [id number] Health Concerns Section Related Observation LastModified by Organization Detai ls LastModified Time None Recorded Concern Status LastModified by Organization Details LastModified Time None Recorded Payers None recorded. OBGyn Episode Ob Episode Information Episode Created Date Number of Fetuses Patient Bloodtype Patient rh Status Prepregnancy Weight lbs Domestic Partner Domestic Partner Phone Father Name Drop Worker Status 01/25/20 25 1 O Positive Damián [...] Resolution Snomed Code Not e Normal 02/25/2025 [id number] Merrill Calculation Initial Merrill Date Initial Exam [...] Weight in lbs Pre/Post Dialysis Refused Weight 227.395357317925 BP Diastolic BP Location Tested BP Systolic [...] Weight in lbs Pre/Post Dialysis Refused Weight 221.450968325266 BP Diastolic BP Location Tested BP Systolic [...] Weight in lbs Pre/Post Dialysis Refused Weight 221.549231943307 BP Diastolic BP Location Tested BP Systolic [...] Weight in lbs Pre/Post Dialysis Refused Weight 225.240680483086 BP Diastolic BP Location Tested BP Systolic [...] Weight in lbs Pre/Post Dialysis Refused Weight 230.448016973371 BP Diastolic BP Location Tested BP Systolic BP Type 62 L arm 106 Fetus Heart Rate Present A 148 Present Fetus Movement A Yes Comments heartburn Flowsheet Date 06/18/2025 Sierra Score Blood Edema Fundus Height Fundus Units Glucose Ketones Leukocytes Nitrite Labor Signs Protein Cervic Dilation Cervic Effacement Cervic Station Type Weight in lbs Pre/Post Dialysis Refused Weight 229.5269044107 BP Diastolic BP Location Tested BP Systolic [...] Weight in lbs Pre/Post Dialysis Refused Weight 234.256454617096 BP Diastolic BP Location Tested BP Systolic [...] Weight in lbs Pre/Post Dialysis Refused Weight 232.315856047492 BP Diastolic BP Location Tested BP Systolic [...] Weight in lbs Pre/Post Dialysis Refused Weight 236.248201368706 BP Diastolic BP Location Tested BP Systolic BP Type 76 120 Fetus Heart Rate Present A 144 Present Fetus Movement A Yes Comments mild swelling, heartburn int ermittent Flowsheet Date 08/13/2025 Sierra Score Blood Edema Fundus Height Fundus Units Glucose Ketones Leukocytes Nitrite Labor Signs Protein Cervic Dilation Cervic Effacement Cervic Station 34 cm none trace [place] neg Type Weight in lbs Pre/Post Dialysis Refused Weight 239.423638646948 BP Diastolic BP Location Tested BP Systolic [...] Weight in lbs Pre/Post Dialysis Refused Weight 241.313851845136 BP Diastolic BP Location Tested BP Systolic [...] Weight in lbs Pre/Post Dialysis Refused Weight 241.776675727575 BP Diastolic BP Location Tested BP Systolic [...] Weight in lbs Pre/Post Dialysis Refused Weight 243.763723262713 BP Diastolic BP Location Tested BP Systolic BP Type 70 120 Fetus Heart Rate Present Fetus Movement Comments Flowsheet Date 09/10/2025 Sierra Score Blood Edema Fundus Height Fundus Units Glucose Ketones Leukocytes Nitrite Labor Signs Protein Cervic Dilation Cervic Effacement Cervic Station none trace Negative [place] neg 2cm 70% -3 Type Weight in lbs Pre/Post Dialysis Refused Weight 243.116197544077 BP Diastolic BP Location Tested BP Systolic [...] Weight in lbs Pre/Post Dialysis Refused Weight 242.171690516623 BP Diastolic BP Location Tested BP Systolic [...] Weight in lbs Pre/Post Dialysis Refused Weight 244.102485694370 BP Diastolic BP Location Tested BP Systolic [...] Weight in lbs Pre/Post Dialysis Refused Weight 248.189560955290 BP Diastolic BP Location Tested BP Systolic [...] Estim ated Date of Delivery false Thalassemia (Bahamian, Angolan, Mediterranean, Or Background): MCV < 80 false Neural Tube Defect (Meningomyelocele, Spina Bifi da, Or Anencephaly) false Congenital Heart Defect false Down Syndrome false Maco-Sachs (eg, Jew, Cajun, Irish-Lee) f alse Dustin Disease false Sickle Cell Disease Or Trait () false Hemophilia Or Other Blood Disorders false Muscular Dystrophy false Cystic Fibrosis false [place]'s Chorea false Intellectual Disability/Autism false If Yes, [...]
--- OUTSIDE RECORDS SUMMARY | 2025-09-25 15:06 | XMS_ITS | Continuity of Care Document ---
Author Organization HILTON Myers [facility] [place], [facility] ([facility]) Address [address] [place] [address] Assessment No assessment recorded. Plan of Treatment Reminders Order Date Submit Date Provider Last Modified By Organization Details Last Modified Time Details Appointments RETURN OB 2024 01:15P M Alvaro Angelo MD Not available Not available Not available Lab glucose, QN [mass/vo lume], blood 2024 025 CORETTA [facility], [address], [facility] 1, [place], [address], 07/11/2025 10:37:03 Referral None recorded . Procedures None recorded . Surgeries None recorded . Imaging None recorded . Medication Orders None recorded . Patient TargetsNo targets recorded. Patient InstructionsNo instructions recorded. Reason for Referral None Reported. Results Created Date Observation Date Name Description Value Unit Range Abnormal Flag Note LastModifiedBy Organization Detail LastModifiedTime 02/27/2002/27/2025 URINA LYSIS , COMPL ETE color YELLOW yellow normal Not Available [facility] [address] [address] [place], [address], 02/27/2025 22:28:50 02/27/2002/27/2025 URINA LYSIS , COMPL ETE appearance CLEAR clear normal Not Available [facility] [address] [place], [address], 02/27/2025 22:28:50 02/27/2002/27/2025 URINA LYSIS , COMPL ETE specific gravity 1.012 1.001- 1.035 normal Not Available [address], [address], 02/27/2025 22:28:50 02/27/20 25 02/27/2025 URINA LYSIS , COMPL ETE pH 7.5 5.0-8. 0 normal Not Available [address], [address], 02/27/2025 22:28:50 02/27/20 25 02/27/2025 URINA LYSIS , COMPL ETE glucose NEGATI VE negati ve normal Not Available [address], [address], 02/27/2025 22:28:50 02/27/20 25 02/27/2025 URINA LYSIS , COMPL ETE bilirubin NEGATI VE negati ve normal Not Available [address], [address], 02/27/2025 22:28:50 02/27/20 25 02/27/2025 URINA LYSIS , COMPL ETE ketones NEGATI VE negati ve normal Not Available [address], [address], 02/27/2025 22:28:50 02/27/20 25 02/27/2025 URINA LYSIS , COMPL ETE occult blood NEGATI VE negati ve normal Not Available [address], [address], 02/27/2025 22:28:50 02/27/20 25 02/27/2025 URINA LYSIS , COMPL ETE protein NEGATI VE negati ve normal Not Available [address], [address], 02/27/2025 22:28:50 02/27/20 25 02/27/2025 URINA LYSIS , COMPL ETE nitrite NEGATI VE negati ve normal Not Available [address], [address], 02/27/2025 22:28:50 02/27/20 25 02/27/2025 URINA LYSIS , COMPL ETE leukocyte esterase TRACE negati ve abnormal Not Available [address], [address], 02/27/2025 22:28:50 02/27/20 25 02/27/2025 URINA LYSIS , COMPL ETE WBC NONE SEEN /hpf < or = 5 normal Not Available [address], [address], 02/27/2025 22:28:50 02/27/20 25 02/27/2025 URINA LYSIS , COMPL ETE RBC NONE SEEN /hpf < or = 2 normal Not Available [address], [address], 02/27/2025 22:28:50 02/27/20 25 02/27/2025 URINA LYSIS , COMPL ETE squamous epithelial cells 6-10 /hpf < or = 5 abnormal Not Available [address], [address], 02/27/2025 22:28:50 02/27/20 25 02/27/2025 URINA LYSIS , COMPL ETE bacteria NONE SEEN /hpf none seen normal Not Available [address], [address], 02/27/2025 22:28:50 02/27/20 25 02/27/2025 URINA LYSIS , COMPL ETE hyaline cast NONE SEEN /lpf none seen normal Not Available [address], [address], 02/27/2025 22:28:50 02/27/20 25 02/27/2025 URINA LYSIS , COMPL ETE note This urine was jim zed for the prese nce of WBC, RBC, bacte terry, casts , and other forme d eleme nts. Only those eleme nts seen were repor bruce. Not Available [address], [address], 02/27/2025 22:28:50 02/27/20 25 02/27/2025 CBC (INCL UDES DIFF/ PLT) white blood cell count 8.9 thous and/u L 3.8-10 .8 normal Not Available [address], [address], 02/27/2025 22:28:51 02/27/20 25 02/27/2025 CBC (INCL UDES DIFF/ PLT) red blood cell count 4.42 erick on/uL 3.80-5 .10 normal Not Available [address], [address], 02/27/2025 22:28:51 02/27/20 25 02/27/2025 CBC (INCL UDES DIFF/ PLT) hemoglobin 13.2 g/dL 11.7-1 5.5 normal Not Available [address], [address], 02/27/2025 22:28:51 02/27/20 25 02/27/2025 CBC (INCL UDES DIFF/ PLT) hematocrit 41.4 % 35.0-4 5.0 normal Not Available [address], [address], 02/27/2025 22:28:51 02/27/20 25 02/27/2025 CBC (INCL UDES DIFF/ PLT) MCV 93.7 fL 80.0-1 00.0 normal Not Available [address], [address], 02/27/2025 22:28:51 02/27/20 25 02/27/2025 CBC (INCL UDES DIFF/ PLT) MCH 29.9 pg 27.0-3 3.0 normal Not Available [address], [address], 02/27/2025 22:28:51 02/27/20 25 02/27/2025 CBC (INCL UDES DIFF/ PLT) MCHC 31.9 g/dL 32.0-3 6.0 low For adult s, a sligh t decre ase in the calcu lated MCHC value (in the range of 30 to 32 g/dL) is most likel y not clini solomon signi fican t; eliana er, it shoul d be inter prete d with cauti on in corre lat n with other red cell mariana eters and the patie nt's clini rajiv condi tion. Not Available [address], [address], 02/27/2025 22:28:51 02/27/20 25 02/27/2025 CBC (INCL UDES DIFF/ PLT) RDW 12.5 % 11.0-1 5.0 normal Not Available [address], [address], 02/27/2025 22:28:51 02/27/20 25 02/27/2025 CBC (INCL UDES DIFF/ PLT) platelet count 294 thous and/u L 140-40 0 normal Not Available [facility] [address], [address], 02/27/2025 22:28:51 02/27/20 25 02/27/2025 CBC (INCL UDES DIFF/ PLT) MPV 11.6 fL 7.5-12 .5 normal Not Available [address], [address], 02/27/2025 22:28:51 02/27/20 25 02/27/2025 CBC (INCL UDES DIFF/ PLT) absolute neutrophils 6408 cells /uL 1500-7 800 normal Not Available [facility] [address] [place], [address], 02/27/2025 22:28:51 02/27/20 25 02/27/2025 CBC (INCL UDES DIFF/ PLT) absolute lymphocytes 1833 cells /uL 850-39 00 normal Not Available [facility] [address], [address], 02/27/2025 22:28:51 02/27/20 25 02/27/2025 CBC (INCL UDES DIFF/ PLT) absolute monocytes 481 cells /uL 200-95 0 normal Not Available [facility] [address], [address], 02/27/2025 22:28:51 02/27/20 25 02/27/2025 CBC (INCL UDES DIFF/ PLT) absolute eosinophils 151 cells /uL 15-500 normal Not Available [facility] [address], [address], 02/27/2025 22:28:51 02/27/20 25 02/27/2025 CBC (INCL UDES DIFF/ PLT) absolute basophils 27 cells /uL 0-200 normal Not Available [facility] [address], [address], 02/27/2025 22:28:51 02/27/20 25 02/27/2025 CBC (INCL UDES DIFF/ PLT) neutrophils 72 % normal Not Available [facility] [address], [address], 02/27/2025 22:28:51 02/27/20 25 02/27/2025 CBC (INCL UDES DIFF/ PLT) lymphocytes 20.6 % normal Not Available [facility] [address], [address], 02/27/2025 22:28:51 02/27/20 25 02/27/2025 CBC (INCL UDES DIFF/ PLT) monocytes 5.4 % normal Not Available [facility] [address] [place], [address], 02/27/2025 22:28:51 02/27/20 25 02/27/2025 CBC (INCL UDES DIFF/ PLT) eosinophils 1.7 % normal Not Available [facility] - [address], [address], 02/27/2025 22:28:51 02/27/20 25 02/27/2025 CBC (INCL UDES DIFF/ PLT) basophils 0.3 % normal Not Available [facility] - [address] [address] [place], [address], 02/27/2025 22:28:51 02/27/20 25 02/27/2025 HEPAT ITIS B SURFA CE ANTIG EN W/REF L CONFI RM hepatitis B surface antigen NON-RE ACTIVE non-re active normal For addit ional infor amy raphael, sabrina e refer to http: //[facility] n.que stdia gnost ics.c om/fa q/FAQ 202 (This link is being provi ded for infor matio nal/ educa jhonathan l purpo ses only. ) Not Available [facility] - [address], [address], 02/27/2025 22:28:52 02/27/20 25 02/27/2025 HEPAT ITIS [...] a test for HCV RNA (test code 94633 ) is sugge sted. For addit ional infor matio n pleas e refer to http: //[facility] n.que stdia gnost ics.c om/fa q/FAQ 22v1 (This link is being provi ded for infor matio nal/ educa jhonathan l purpo ses only. ) Not Available [facility] [address] [place], [address], 02/27/2025 22:28:53 02/27/20 25 02/27/2025 RUBEL LA [...] la virus . Not Available [facility] [address] [address], [place], [address], 02/27/2025 22:28:53 02/27/2002/27/2025 HIV 1/2 ANTIG EN/AN TIBOD Y,FOU RTH [...] n pleas e refer to http: //[facility] raphael.que stdia gnost ics.c om/fa q/FAQ 106 (This link is being provi ded for infor amy trujillo/ educa jhonathan l purpo ses only. ) The perfo rmanc e of this assay has not been clini solomon valid ated in patie nts less than 2 years old. Not Available [facility] [address] [place], [address], 02/27/2025 22:28:54 02/27/20 25 02/27/2025 RPR (DX) W/REF L TITER AND T. PALLI DUM AB, IA RPR (DX) w/refl titer and confirmatory testing NON-RE ACTIVE non-re active normal No labor atory evide nce of syphi lis. If recen t expos ure is suspe cted, submi t a new sampl e in 2-4 weeks . Not Available [facility] [address] [place], [address], 02/27/2025 22:28:55 02/27/20 25 02/27/2025 ANTIB MAICOL [...] alloi mmuni zed pregn benjamin. Not Available [facility] [address] [place], [address], 02/27/2025 22:28:56 02/27/20 25 02/27/2025 ABO GROUP AND RH TYPE ABO group O Not Available [facility] [address], [address], 02/27/2025 22:28:57 02/27/20 25 02/27/2025 ABO GROUP AND RH TYPE Rh type RH(D) POSITI VE For addit ional infor sabrina roth e refer to http: //divina Mayer gnost ics.c om/fa q/FAQ 111 (This link is being provi ded for infor amy trujillo/ inna leio ses only. ) Not Available [facility] [address], [place], [address], 02/27/2025 22:28:57 02/27/20 25 02/27/2025 DRUG MONIT OR, PANEL 1, SCREE N, URINE amphetamines NEGATI VE NG/mL <500 See Note A See Note A Not Available [facility] [address] [address], [place], [address], 02/27/2025 22:28:58 02/27/20 25 02/27/2025 DRUG MONIT OR, PANEL 1, SCREE N, URINE barbiturates NEGATI VE NG/mL <300 See Note A See Note A Not Available [facility] [address], [place], [address], 02/27/2025 22:28:58 02/27/20 25 02/27/2025 DRUG MONIT OR, PANEL 1, SCREE N, URINE benzodiazepi duane NEGATI VE NG/mL <100 See Note A See Note A Not Available [facility] [address] [address] [address], [place], [address], 02/27/2025 22:28:58 02/27/20 25 02/27/2025 DRUG MONIT OR, PANEL 1, SCREE N, URINE cocaine metabolite NEGATI VE NG/mL <150 See Note A See Note A Not Available [facility] [address] [address] [address], [place], [address], 02/27/2025 22:28:58 02/27/20 25 02/27/2025 DRUG MONIT OR, PANEL 1, SCREE N, URINE marijuana metabolite NEGATI VE NG/mL <20 See Note A See Note A Not Available [facility] [address] [address] [address], [place], [address], 02/27/2025 22:28:58 02/27/20 25 02/27/2025 DRUG MONIT OR, PANEL 1, SCREE N, URINE methadone metabolite NEGATI VE NG/mL <100 See Note A See Note A Not Available [address] [address] [address], [place], [address], 02/27/2025 22:28:58 02/27/20 25 02/27/2025 DRUG MONIT OR, PANEL 1, SCREE N, URINE opiates NEGATI VE NG/mL <100 See Note A See Note A Not Available [address] [address] [address], [place], [address], 02/27/2025 22:28:58 02/27/20 25 02/27/2025 DRUG MONIT OR, PANEL 1, SCREE N, URINE oxycodone NEGATI VE NG/mL <100 See Note A See Note A Not Available [address] [address], [place], [address], 02/27/2025 22:28:58 02/27/20 25 02/27/2025 DRUG MONIT OR, PANEL 1, SCREE N, URINE phencyclidin e NEGATI VE NG/mL <25 See Note A See Note A Not Available [address] [address], [place], [address], 02/27/2025 22:28:58 02/27/20 25 02/27/2025 DRUG MONIT OR, PANEL 1, SCREE N, URINE creatinine 108.1 mg/dL > or = 20.0 Not Available [address] [address], [place], [address], 02/27/2025 22:28:58 02/27/20 25 02/27/2025 DRUG MONIT OR, PANEL 1, SCREE N, URINE pH 7.7 4.5-9. 0 Not Available [address] [address] [address], [place], [address], 02/27/2025 22:28:58 02/27/20 25 02/27/2025 DRUG MONIT OR, PANEL 1, SCREE N, URINE oxidant NEGATI VE mcg/m L <200 Not Available [address] [address] [place], [address], 02/27/2025 22:28:58 02/27/20 25 02/27/2025 DRUG MONIT [...] are presu mptiv e; based only on neelsherry pat caputo ds, and they have not been confi rmed by a defin itive metho d. [facility] Provi ders needi ng Inter preta tion yanci tance , pleas e conta ct us at 1.877 .40.R XTOX (1.87 7.407 .9869 ) M-F, 8am to 10pm EST Not Available [address], [place], [address], 02/27/2025 22:28:59 02/27/20 25 02/27/2025 CULTU RE, URINE , ROUTI NE culture, urine, routine SEE NOTE CULTU RE, URINE , ROUTI NE Micro Numbe r: [id number] Test Statu s: Final Speci men Sourc e: Urine Speci men Quali ty: Adequ ate Resul t: No Growt h Not Available [facility] [address] [address] [address], [place], [address], 02/27/2025 22:28:59 02/27/20 25 03/08/2025 THINP REP TIS PAP (REFL ) HPV MRNA E6/E7 clinical information: normal Pregn ant Not Available [facility] [address] [address] [place], [address], 03/08/2025 08:16:51 02/27/20 03/08/2025 THINP REP TIS PAP (REFL ) HPV MRNA E6/E7 LMP: normal NONE GIVEN Not Available [address], [address], 03/08/2025 08:16:51 02/27/20 25 03/08/2025 THINP REP TIS PAP (REFL ) HPV MRNA E6/E7 prev. Pap: normal NONE GIVEN Not Available [address], [address], 03/08/2025 08:16:51 02/27/2003/08/2025 THINP REP TIS PAP (REFL ) HPV MRNA E6/E7 prev. BX: normal NONE GIVEN Not Available [address], [address], 03/08/2025 08:16:51 02/27/2003/08/2025 THINP REP TIS PAP (REFL ) HPV MRNA E6/E7 source: normal Cervi x, Endoc ervix Not Available [address], [address], 03/08/2025 08:16:51 02/27/2003/08/2025 THINP REP TIS PAP (REFL ) HPV MRNA E6/E7 statement of adequacy: normal Satis facto ry for evalu ation . Endoc ervic al/tr ansfo rmati on zone compo nent prese nt. Not Available [address], [address], 03/08/2025 08:16:51 02/27/2003/08/2025 THINP REP TIS PAP (REFL ) HPV MRNA E6/E7 general categorizati on: abnormal Cytol ogy Resul ts: Epith elial Cell Abnor malit y Not Available [address], [address], 03/08/2025 08:16:51 02/27/2003/08/2025 THINP REP TIS PAP (REFL ) HPV MRNA E6/E7 interpretati on/result: abnormal Low Grade Squam ous Intra epith elial Lesio n (LSIL ) Not Available [address] [address] [place], [address], 03/08/2025 08:16:51 02/27/20 25 03/08/2025 THINP REP TIS PAP (REFL ) HPV MRNA E6/E7 comment: normal This Pap test has been evalu ated with compu ter yanci bruce techn ology . Sugge st clini rajiv corre latio n and follo w-up as clini solomon appro priat e Not Available [address] [address] [place], [address], 03/08/2025 08:16:51 02/27/20 25 03/08/2025 THINP REP TIS PAP (REFL ) HPV MRNA E6/E7 cytotechnolo gist: normal KMS, CT( CP) CT Scree pat locat ion: [address] [address] [place] [address] Not Available [address] [address] [place], [address], 03/08/2025 08:16:51 02/27/20 25 03/08/2025 THINP REP TIS PAP (REFL ) HPV MRNA E6/E7 pathologist: normal Alisha monique M.D., Board Certi fied in [place] Patho logy and Cytop athol ogy. Phone : [phone] (elec troni c signa ture) Patho logis t Relea se Date/ Time: 03/06 09:25 AM Not Available [address] [address] [place], [address], 03/08/2025 08:16:51 02/27/20 25 03/08/2025 THINP REP [...] clini rajiv infor amy raphael. Not Available [address] [address] [place], [address], 03/08/2025 08:16:51 02/27/20 25 03/08/2025 HPV MRNA [...] amy raphael plekeyon e refer to http: //[facility] raphael.patience stdia gnost ics.c om/fa q/FAQ 129v1 (This link if provi ded for infor amy raphael/ inna monique purpo ses only. ) Not Available [facility] [address] [place], [address], 03/08/2025 08:16:53 02/27/20 25 02/26/2025 CT + NG + TV, DNA, urine /swab Chlamydia negati ve Not Available [facility] ([facility]) [address] [place], [address], 02/25/2025 18:55:26 02/27/20 25 02/26/2025 CT + NG + TV, DNA, urine /swab Gonorrhea negati ve Not Available [facility] ([facility]) [address] [place], [address], 02/25/2025 18:55:26 02/27/20 25 02/26/2025 CT + NG + TV, DNA, urine /swab Trichomonas negati ve Not Available [facility] ([facility]) [address] [place], [address], 02/25/2025 18:55:26 07/02/2007/02/2025 CBC WBC 11.1 x10 4.0-10 .5 high Not Available [facility] [address] [facility] 1, [place], [address], 07/02/2025 10:24:57 07/02/20 25 07/02/2025 CBC RBC 3.96 x10 3.50-5 .50 Not Available [facility] [address] [facility] 1, [place], [address], 07/02/2025 10:24:57 07/02/20 25 07/02/2025 CBC HGB 12.0 g/dL 12.0-1 6.0 Not Available [facility] [address] [facility] 1, [place], [address], 07/02/2025 10:24:57 07/02/20 25 07/02/2025 CBC HCT 37.1 % 37.0-4 7.0 Not Available [facility] [address] [facility] 1, [place], [address], 07/02/2025 10:24:57 07/02/20 25 07/02/2025 CBC MCV 93.8 fL 80.0-9 9.9 Not Available [facility] [address] [facility] 1, [place], [address], 07/02/2025 10:24:57 07/02/20 25 07/02/2025 CBC MCH 30.4 pg 27.0-3 2.0 Not Available [facility] [address] [facility] 1, [place], [address], 07/02/2025 10:24:57 07/02/20 25 07/02/2025 CBC MCHC 32.4 g/dL 32.0-3 6.0 Not Available [facility] [address] [facility] 1, [place], [address], 07/02/2025 10:24:57 07/02/20 25 07/02/2025 CBC RDW 12.9 % 11.5-1 4.5 Not Available [facility] [address] [facility] 1, [place], [address], 07/02/2025 10:24:57 07/02/20 25 07/02/2025 CBC plt 227.7 x10 140.0- 451.0 Not Available [facility] [address] [facility] [facility] 1, [place], [address], 07/02/2025 10:24:57 07/02/20 25 07/02/2025 CBC lymphocytes % 15.5 % 20.0-5 0.0 low Not Available [facility] [address] [facility] [address] [facility] 1, [place], [address], 07/02/2025 10:24:57 07/02/20 25 07/02/2025 CBC granulcytes % 78.3 % 30.0-7 0.0 high Not Available [facility] [address] [facility] 1, [place], [address], 07/02/2025 10:24:57 07/02/20 25 07/02/2025 CBC monocytes % 4.2 % 2.0-16 .0 Not Available [facility] [address] [facility] 1, [place], [address], 07/02/2025 10:24:57 07/02/20 25 07/02/2025 CBC granulcytes# 8.7 x10 Not Jenny ilable [facility] [address] [facility] 1, [place], [address], 07/02/2025 10:24:57 07/02/20 25 07/02/2025 CBC lymphocytes # 1.7 x10 Not Available [facility] [address] [facility] 1, [place], [address], 07/02/2025 10:24:57 07/02/20 25 07/02/2025 CBC monocytes # 0.5 x10 Not Avai lable [facility] [address] [facility], [place], [address], 07/02/2025 10:24:57 07/02/20 25 07/02/2025 GLUCO SE SCREE N glucose screen 135.0 mg/dL Not Available [facility] [address] [place] [address] [facility] 1, [place], [address], 07/02/2025 10:30:30 07/11/20 25 07/11/2025 GLUCO SE SCREE N glucose screen 133.0 mg/dL Not Available [facility] [address] [facility], [place], [address], 07/11/2025 10:37:03 02/19/20 25 02/12/2025 US, chadwick martinez, 1st trime ster No observ ation record ed. [email or web address] Not Available 02/19 09:09:34 04/25/20 25 04/18/2025 US, chadwick tric, follo w-up No observ ation record ed. [facility] [address] [place], [address], 04/29/2025 09:24:34 05/11/20 25 05/07/2025 US, obste tric, 2nd trime ster No observ ation record ed. [address] [place], [address], 05/13/2025 17:57:21 07/05/20 25 07/02/2025 imagi ng/di agnos tic resul t No observ ation record ed. [facility] [address] [place], [address], 07/09/2025 10:35:54 Result Notes None recorded. Problems Name Problem SNOMED Code Status Onset Date Resolution Date Notes Provider Name and Address Organization Details Recorded Time Rheumatoid arthritis 89033315 Active 2022 KERWIN roper [facility] 5 14:16:25 Pain of knee region 1213743379 Completed 202301/24/2025 KERWIN roper [facility] 5 14:16:23 Family history of diabetes mellitus 706824140 Active 2023 KERWIN roper [facility] 5 14:16:18 Normal 62701708 Active 2024 ROXI LANDISWAHailey KAVITHA null, [facility] 5 10:22:35 Normal 11916975 Active 2024 ROXI NEULORENWAHailey KAVITHA null [facility] 5 10:22:35 Placenta previa partialis 80585754 Active 2024 Alvaro Angelo MD [address] [place], [address], [facility]CR[facility]io 02:46:26 Low-lying placenta 648040072 Active 2024 Alvaro Angelo MD [address] [place] [address], [address], [facility], LRemigioLRemigioCRemigio 11:36:47 Problem Notes None recorded. Procedures Surgical History Date Name Laterality Status Provider Name and Address Organization Details Recorded Time 02/27/20 25 Date of Last Pap Smear completed [facility] 09/02/2025 18:39:21 02/27/20 25 liquid based cervical cytology screening completed [facility], VikiLRemigioCRemigio 09/02/2025 18:39:54 01/31/20 24 colposcopy completed [facility], LRemigioLRemigioCRemigio 01/24/2025 14:17:49 01/31/20 24 hysteroscopy completed [facility], LRemigioL.CRemigio 01/24/2025 14:18:46 arthroscopy of left knee joint completed [facility], LRemigioLRemigioCRemigio 01/24/2025 14:17:01 cholecystectomy completed [facility] 01/24/2025 14:17:33 Imaging Results None recorded. Procedure Notes None recorded. Medical Equipment None Reported. Allergies Allergen ID Allergen Name Allergen Category Reaction Reaction Severity Criticality Documentation Date Start Date Code Code System Note Provider Name and Address Organization Details Recorded Time 12137 Bactrim medicatio n hives moderate Not available 05/21/2023 65050 9 RxNorm ROXI Vang [facility], VikiLRemigioCRemigio 5 15:30:03 08132 Product containin g penicilli n (product) medicatio n hives moderate Not available 05/21/2023 77299 8001 SNOMED ROXI Vang [facility], LRemigioFabiola 5 15:30:03 25200 Augmentin medicatio n hives moderate Not available 01/24/2025 86107 2 RxNorm KERWIN DUNAWAY [facility], [place] 5 14:19:18 72280 Celebrex medicatio n other moderate Not available 01/24/2025 91020 7 RxNorm TREJOSE RAUL PLUMMER [facility] [place] 5 15:30:03 28005 Substance with sulfonami de structure and antibacte rial mechanism of action (substanc e) medicatio n hives moderate Not available 04/18/2025 11014 8003 SNOMED ROXI PLUMMER [facility], [place] 5 15:30:03 07137 amoxicill in / clavulana te medicatio n hives Not available [facility] 09/06/20252022 37382 RxNorm Yessy ates PCN and amoxi cilli n fine Not Available [employer] - External Data Service - prod 5 07:58:34 64416 celecoxib medicatio n Not available Not available [facility] 09/06/20252022 [id number] RxNorm Not Available [employer] - prod 5 07:58:34 Medications [...] Details Last Updated DateTime 5 170.18 cm 36.7 kg/m2 717813. 71 g 18 /min 99 % 94 /min 98.2 [degF] 124/66 mm[Hg] KERWIN DUNAWAY [facility] 5 11:07:48 Social History Question Answer Notes LastModified by Organizat ion Details LastModified Time Tobacco Smoking Status Former Smoker ANTONIO roper [facility] 01/24/2023 10:09:31 Are You Blind Or Do You Have Difficulty Seeing? No Information not available 01/24/2025 Are You Deaf Or Do You Have Serious Difficulty Hearing? No [email or web address] Information not available 01/24/2023 When Did You Quit Smoking? 1-5yearssinc elastcigaret te [email or web address] Information not available 01/24/2023 Do You Work In Healthcare? No Information not available 01/24/2025 What Was The Date Of Your Most Recent Tobacco Screening? 03/26/2025 [email or web address] Information not available 03/26/2025 What Is Your Relationship Status? Information not available 01/24/2025 Have You Recently Traveled Abroad? No Information not available 01/24/2023 Do You Have Difficulty Walking Or Climbing Stairs? No [email or web address] Information not available 01/24/2023 Sex: Unknown Functional [...] independently without assistance or assistive devices? YESWOREST [email or web address] Information not available 01/24/2023 Do you have difficulty doing errands alone? No [email or web address] Information not available 01/24/2023 Are you able to care for yourself independently? 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 No [email or web address] Information not available 01/24/2023 Do you or [...] Organization Details LastModified Time Father Diabetes mellitus [email or web address] Not available 2023 09:43:45 Paternal Grandmother Malignant [...] Details Recorded Time IPV 09/28/2000 kaushal roper [facility] 10/09/2024 09:35:10 MMR 04/11/1996 kaushal roper [facility] 10/09/2024 09:35:10 MMR 09/28/2000 kaushal roper [facility] 10/09/2024 09:35:10 Tdap 11/17/2010 kaushal roper [facility] 10/09/2024 09:35:10 Tdap 02/20/2015 completed Susan Wilson null, [facility] 10/09/2024 09:35:10 Hep B, unspecified formulation 1995 completed Susan Wilson null, [facility] 10/09/2024 09:35:10 Hep B, unspecified formulation 02/28/1996 completed Susan Wilson null, [facility] 10/09/2024 09:35:10 Hep B, unspecified formulation 1995 completed Susan Wilson null, [facility] 10/09/2024 09:35:10 OPV, trivalent 1995 completed Susan Wilson null, [facility] 10/09/2024 09:35:10 OPV, trivalent 02/28/1996 completed Susan Wilson null, [facility] 10/09/2024 09:35:10 OPV, trivalent 1995 completed Susan Wilson null, [facility] 10/09/2024 09:35:10 DTP-Hib 11/29/1996 completed Susan Wilson null, [facility] 10/09/2024 09:35:10 DTP-Hib 1995 completed Susan Wilson null, [facility] 10/09/2024 09:35:10 DTP-Hib 02/28/1996 completed Susan Wilson null, [facility] 10/09/2024 09:35:10 DTP-Hib 1995 completed Susan Wilson null, [facility] 10/09/2024 09:35:10 DTaP 09/28/2000 completed [facility] 10/09/2024 09:35:10 Past Encounters Encounter ID Performer Location Encounter Start Date Encounter Closed Date Diagnosis/Indication Diagnosis SNOMED-CT Code Diagnosis ICD10 Code Diagnosis IMO Codes Diagnosis Note [id number] Alvaro Angelo MD [facility] ([facility]) [address] [place] [address] [phone] 06/18/2025 11:21:56 06/18/2025 12:15:35 Normal 20681097 Z34.81 Gestation period, 26 weeks 95492087 Z3A.26 [id number] Alvaro Angelo MD [facility]) [address] [place] [address] [phone] 07/02/2025 08:58:15 07/03/2025 12:00:14 [id number] Alvaro Angelo MD [facility]) [address] [place] [address] [phone] 07/02/2025 08:58:47 07/04/2025 04:05:41 [id number] Alvaro Angelo MD [facility] ([facility]) [address] [place] [address] [phone] 07/02/2025 10:39:30 07/02/2025 11:45:25 Normal 55704586 Z34.83 [id number] Gestation period, 28 weeks 66641390 Z3A.28 [id number] Health Concerns Section Related Observation LastModified by Organization Detai ls LastModified Time None Recorded Concern Status LastModified by Organization Details LastModified Time None Recorded Payers Encounter Date Sequence Insurance Name Policy Number Policy Fierro Covered Member ID Fierro Member ID Guarantor Name 07/02/2025 1 LANETTE (PPO) [id number] Jeffy Zimmerman [id number] Jeffy Zimmerman Notes Date Note Type [...] noted in the HPI Alvaro Angelo MD [address] [place] [address], [phone], [facility] 07/02/2025 11:42:06 OBGyn Episode Ob Episode Information Episode Created Date Number of Fetuses Patient Bloodtype Patient rh Status Prepregnancy Weight lbs Domestic Partner Domestic Partner Phone Father Name Plate Painter Status 01/25/20 1 O Positive Damián OPEN [...] Resolution Snomed Code Not e Normal 02/25/2025 [id number] Merrill Calculation Initial Merrill Date Initial Exam [...] Weight in lbs Pre/Post Dialysis Refused Weight 227.670665850998 BP Diastolic BP Location Tested BP Systolic [...] Weight in lbs Pre/Post Dialysis Refused Weight 221.586307923069 BP Diastolic BP Location Tested BP Systolic [...] Weight in lbs Pre/Post Dialysis Refused Weight 221.805509897200 BP Diastolic BP Location Tested BP Systolic [...] Weight in lbs Pre/Post Dialysis Refused Weight 225.276507257899 BP Diastolic BP Location Tested BP Systolic [...] Weight in lbs Pre/Post Dialysis Refused Weight 230.939869902896 BP Diastolic BP Location Tested BP Systolic BP Type 62 L arm 106 Fetus Heart Rate Present A 148 Present Fetus Movement A Yes Comments heartburn Flowsheet Date 06/18/2025 Sierra Score Blood Edema Fundus Height Fundus Units Glucose Ketones Leukocytes Nitrite Labor Signs Protein Cervic Dilation Cervic Effacement Cervic Station Type Weight in lbs Pre/Post Dialysis Refused Weight 229.0359450838 BP Diastolic BP Location Tested BP Systolic [...] Weight in lbs Pre/Post Dialysis Refused Weight 234.163832976648 BP Diastolic BP Location Tested BP Systolic [...] Weight in lbs Pre/Post Dialysis Refused Weight 232.476844644103 BP Diastolic BP Location Tested BP Systolic [...] Weight in lbs Pre/Post Dialysis Refused Weight 236.465351772656 BP Diastolic BP Location Tested BP Systolic BP Type 76 120 Fetus Heart Rate Present A 144 Present Fetus Movement A Yes Comments mild swelling, heartburn int ermittent Flowsheet Date 08/13/2025 Sierra Score Blood Edema Fundus Height Fundus Units Glucose Ketones Leukocytes Nitrite Labor Signs Protein Cervic Dilation Cervic Effacement Cervic Station 34 cm none trace [place] neg Type Weight in lbs Pre/Post Dialysis Refused Weight 239.072089117743 BP Diastolic BP Location Tested BP Systolic [...] Weight in lbs Pre/Post Dialysis Refused Weight 241.671259768588 BP Diastolic BP Location Tested BP Systolic [...] Weight in lbs Pre/Post Dialysis Refused Weight 241.631456726678 BP Diastolic BP Location Tested BP Systolic [...] Weight in lbs Pre/Post Dialysis Refused Weight 243.951130798725 BP Diastolic BP Location Tested BP Systolic BP Type 70 120 Fetus Heart Rate Present Fetus Movement Comments Flowsheet Date 09/10/2025 Sierra Score Blood Edema Fundus Height Fundus Units Glucose Ketones Leukocytes Nitrite Labor Signs Protein Cervic Dilation Cervic Effacement Cervic Station none trace Negative Michael [place] neg 2cm 70% -3 Type Weight in lbs Pre/Post Dialysis Refused Weight 243.939972127363 BP Diastolic BP Location Tested BP Systolic [...] Weight in lbs Pre/Post Dialysis Refused Weight 242.921394777196 BP Diastolic BP Location Tested BP Systolic [...] Weight in lbs Pre/Post Dialysis Refused Weight 244.050118163671 BP Diastolic BP Location Tested BP Systolic [...] Weight in lbs Pre/Post Dialysis Refused Weight 248.336931192486 BP Diastolic BP Location Tested BP Systolic [...] Estim ated Date of Delivery false Thalassemia (Citizen Of [place], [place], [place], Or Background): MCV < 80 false Neural Tube Defect (Meningomyelocele, Spina Bifi da, Or Anencephaly) false Congenital Heart Defect false Down Syndrome false Maco-Sachs (eg, [place], [place], [place]) f alse Dustin Disease false Sickle Cell Disease Or Trait () false Hemophilia Or Other Blood Disorders false Muscular Dystrophy false Cystic Fibrosis false Converse's Chorea false Intellectual Disability/Autism false If Yes, [...]
--- OUTSIDE RECORDS SUMMARY | 2025-09-25 15:06 | XMS_ITS | Continuity of Care Document ---
Author Organization [facility] [place] [facility] ([facility]) Address [address] [place] [address] Assessment No assessment recorded. Plan of Treatment [...] ETE color YELLOW yellow normal Not Available [address] [address] [place], [address], 02/27/2025 22:28:50 02/27/2002/27/2025 URINA LYSIS , COMPL ETE appearance CLEAR clear normal Not Available [facility] [address] [address] [place], [address], 02/27/2025 22:28:50 02/27/20 25 02/27/2025 URINA LYSIS , COMPL ETE specific gravity 1.012 1.001- 1.035 normal Not Available [facility] [address] [address] [place], [address], 02/27/2025 22:28:50 02/27/20 25 02/27/2025 URINA LYSIS , COMPL ETE pH 7.5 5.0-8. 0 normal Not Available [address], [address], 02/27/2025 22:28:50 02/27/20 25 02/27/2025 URINA LYSIS , COMPL ETE glucose NEGATI VE negati ve normal Not Available [address], [address], 02/27/2025 22:28:50 02/27/20 25 02/27/2025 URINA LYSIS , COMPL ETE bilirubin NEGATI VE negati ve normal Not Available [address], [address], 02/27/2025 22:28:50 02/27/20 25 02/27/2025 URINA LYSIS , COMPL ETE ketones NEGATI VE negati ve normal Not Available [address], [address], 02/27/2025 22:28:50 02/27/20 25 02/27/2025 URINA LYSIS , COMPL ETE occult blood NEGATI VE negati ve normal Not Available [address], [address], 02/27/2025 22:28:50 02/27/20 25 02/27/2025 URINA LYSIS , COMPL ETE protein NEGATI VE negati ve normal Not Available [address], [address], 02/27/2025 22:28:50 02/27/20 25 02/27/2025 URINA LYSIS , COMPL ETE nitrite NEGATI VE negati ve normal Not Available [address], [address], 02/27/2025 22:28:50 02/27/20 25 02/27/2025 URINA LYSIS , COMPL ETE leukocyte esterase TRACE negati ve abnormal Not Available [address], [address], 02/27/2025 22:28:50 02/27/20 25 02/27/2025 URINA LYSIS , COMPL ETE WBC NONE SEEN /hpf < or = 5 normal Not Available [facility] [address], [address], 02/27/2025 22:28:50 02/27/20 25 02/27/2025 URINA LYSIS , COMPL ETE RBC NONE SEEN /hpf < or = 2 normal Not Available [facility] [address], [address], 02/27/2025 22:28:50 02/27/20 25 02/27/2025 URINA LYSIS , COMPL ETE squamous epithelial cells 6-10 /hpf < or = 5 abnormal Not Available [address], [address], 02/27/2025 22:28:50 02/27/20 25 02/27/2025 URINA LYSIS , COMPL ETE bacteria NONE SEEN /hpf none seen normal Not Available [address], [address], 02/27/2025 22:28:50 02/27/20 25 02/27/2025 URINA LYSIS , COMPL ETE hyaline cast NONE SEEN /lpf none seen normal Not Available [address], [address], 02/27/2025 22:28:50 02/27/20 25 02/27/2025 URINA LYSIS , COMPL ETE note This urine was jim zed for the prese nce of WBC, RBC, bacte terry, casts , and other forme d eleme nts. Only those eleme nts seen were repor bruce. Not Available [address], [address], 02/27/2025 22:28:50 02/27/20 25 02/27/2025 CBC (INCL UDES DIFF/ PLT) white blood cell count 8.9 thous and/u L 3.8-10 .8 normal Not Available [address], [address], 02/27/2025 22:28:51 02/27/20 25 02/27/2025 CBC (INCL UDES DIFF/ PLT) red blood cell count 4.42 erick on/uL 3.80-5 .10 normal Not Available [address], [address], 02/27/2025 22:28:51 02/27/20 25 02/27/2025 CBC (INCL UDES DIFF/ PLT) hemoglobin 13.2 g/dL 11.7-1 5.5 normal Not Available [address], [address], 02/27/2025 22:28:51 02/27/20 25 02/27/2025 CBC (INCL UDES DIFF/ PLT) hematocrit 41.4 % 35.0-4 5.0 normal Not Available [address], [address], 02/27/2025 22:28:51 02/27/20 25 02/27/2025 CBC (INCL UDES DIFF/ PLT) MCV 93.7 fL 80.0-1 00.0 normal Not Available [address], [address], 02/27/2025 22:28:51 02/27/20 25 02/27/2025 CBC (INCL UDES DIFF/ PLT) MCH 29.9 pg 27.0-3 3.0 normal Not Available [address], [address], 02/27/2025 22:28:51 02/27/20 25 02/27/2025 CBC (INCL [...] nt's clini rajiv condi tion. Not Available [address], [address], 02/27/2025 22:28:51 02/27/20 25 02/27/2025 CBC (INCL UDES DIFF/ PLT) RDW 12.5 % 11.0-1 5.0 normal Not Available [address], [address], 02/27/2025 22:28:51 02/27/20 25 02/27/2025 CBC (INCL UDES DIFF/ PLT) platelet count 294 thous and/u L 140-40 0 normal Not Available [facility] [address], [address], 02/27/2025 22:28:51 02/27/20 25 02/27/2025 CBC (INCL UDES DIFF/ PLT) MPV 11.6 fL 7.5-12 .5 normal Not Available [facility] [address], [address], 02/27/2025 22:28:51 02/27/20 25 02/27/2025 CBC (INCL UDES DIFF/ PLT) absolute neutrophils 6408 cells /uL 1500-7 800 normal Not Available [facility] [address], [address], 02/27/2025 22:28:51 02/27/20 25 02/27/2025 CBC (INCL UDES DIFF/ PLT) absolute lymphocytes 1833 cells /uL 850-39 00 normal Not Available [facility] [address], [place], [address], 02/27/2025 22:28:51 02/27/20 25 02/27/2025 CBC (INCL UDES DIFF/ PLT) absolute monocytes 481 cells /uL 200-95 0 normal Not Available [facility] [address], [address], 02/27/2025 22:28:51 02/27/20 25 02/27/2025 CBC (INCL UDES DIFF/ PLT) absolute eosinophils 151 cells /uL 15-500 normal Not Available [facility] [address], [address], 02/27/2025 22:28:51 02/27/20 25 02/27/2025 CBC (INCL UDES DIFF/ PLT) absolute basophils 27 cells /uL 0-200 normal Not Available [facility] [address], [address], 02/27/2025 22:28:51 02/27/20 25 02/27/2025 CBC (INCL UDES DIFF/ PLT) neutrophils 72 % normal Not Available [address], [address], 02/27/2025 22:28:51 02/27/20 25 02/27/2025 CBC (INCL UDES DIFF/ PLT) lymphocytes 20.6 % normal Not Available [facility] [address], [address], 02/27/2025 22:28:51 02/27/20 25 02/27/2025 CBC (INCL UDES DIFF/ PLT) monocytes 5.4 % normal Not Available [address], [address], 02/27/2025 22:28:51 02/27/20 25 02/27/2025 CBC (INCL UDES DIFF/ PLT) eosinophils 1.7 % normal Not Available [facility] [address] [place], [address], 02/27/2025 22:28:51 02/27/20 25 02/27/2025 CBC (INCL UDES DIFF/ PLT) basophils 0.3 % normal Not Available [address] [place], [address], 02/27/2025 22:28:51 02/27/20 25 02/27/2025 HEPAT ITIS B SURFA CE ANTIG EN W/REF L CONFI RM hepatitis B surface antigen NON-RE ACTIVE non-re active normal For addit ional infor mattodd n, pleas e refer to http: //adventhealthtodd n.que stdia gnost ics.c om/fa q/FAQ 202 (This link is being provi ded for infor matio nal/ educa jhonathan l purpo ses only. ) Not Available [facility] [address], [address], 02/27/2025 22:28:52 02/27/20 25 02/27/2025 HEPAT ITIS [...] a test for HCV RNA (test code 31915 ) is sugge sted. For addit ional infor matio n pleas e refer to http: //adventhealthtodd n.que stdia gnost ics.c om/fa q/FAQ 22v1 (This link is being provi ded for infor matio nal/ educa jhonathan l purpo ses only. ) Not Available [address] [address] [place], [address], 02/27/2025 22:28:53 02/27/20 25 02/27/2025 RUBEL LA [...] with rubel la virus . Not Available [facility] [address] [place] [address], [address], 02/27/2025 22:28:53 02/27/20 25 02/27/2025 HIV 1/2 [...] refer to http: //[facility] godfrey stdia gnost ics.c om/fa q/FAQ 106 (This link is being provi ded for infor matio nal/ educa jhonathan l purpo ses only. ) The perfo rmanc e of this assay has not been clini solomon valid ated in patie nts less than 2 years old. Not Available [facility] [place], [address], 02/27/2025 22:28:54 02/27/20 25 02/27/2025 RPR (DX) W/REF L TITER AND T. PALLI DUM AB, IA RPR (DX) w/refl titer and confirmatory testing NON-RE ACTIVE non-re active normal No labor atory evide nce of syphi lis. If recen t expos ure is suspe cted, submi t a new sampl e in 2-4 weeks . Not Available [address], [address], 02/27/2025 22:28:55 02/27/20 25 02/27/2025 ANTIB MAICOL [...] alloi mmuni zed pregn benjamin. Not Available [address], [address], 02/27/2025 22:28:56 02/27/20 25 02/27/2025 ABO GROUP AND RH TYPE ABO group O Not Available [address], [address], 02/27/2025 22:28:57 02/27/20 25 02/27/2025 ABO GROUP AND RH TYPE Rh type RH(D) POSITI VE For addit ional infor sabrina roth refer to http: //divina Godfrey stDia gnost ics.c om/fa q/FAQ 111 (This link is being provi ded for infor amy trujillo/ educcatracho ring l purpo ses only. ) Not Available [address], [address], 02/27/2025 22:28:57 02/27/20 25 02/27/2025 DRUG MONIT OR, PANEL 1, SCREE N, URINE amphetamines NEGATI VE NG/mL <500 See Note A See Note A Not Available [facility] [address] [address] [address], [place], [address], 02/27/2025 22:28:58 02/27/20 25 02/27/2025 DRUG MONIT OR, PANEL 1, SCREE N, URINE barbiturates NEGATI VE NG/mL <300 See Note A See Note A Not Available [facility] [address] [address] [address], [place], [address], 02/27/2025 22:28:58 02/27/20 25 02/27/2025 DRUG MONIT OR, PANEL 1, SCREE N, URINE benzodiazepi duane NEGATI VE NG/mL <100 See Note A See Note A Not Available [facility] [address] [address] [address], [place], [address], 02/27/2025 22:28:58 02/27/20 25 02/27/2025 DRUG MONIT OR, PANEL 1, SCREE N, URINE cocaine metabolite NEGATI VE NG/mL <150 See Note A See Note A Not Available [facility] [address] [address] [address], [place], [address], 02/27/2025 22:28:58 02/27/20 25 02/27/2025 DRUG MONIT OR, PANEL 1, SCREE N, URINE marijuana metabolite NEGATI VE NG/mL <20 See Note A See Note A Not Available [facility] [address] [address] [address], [place], [address], 02/27/2025 22:28:58 02/27/20 25 02/27/2025 DRUG MONIT OR, PANEL 1, SCREE N, URINE methadone metabolite NEGATI VE NG/mL <100 See Note A See Note A Not Available [facility] [address] [address] [address], [place], [address], 02/27/2025 22:28:58 02/27/20 25 02/27/2025 DRUG MONIT OR, PANEL 1, SCREE N, URINE opiates NEGATI VE NG/mL <100 See Note A See Note A Not Available [address] [address] [address], [place], [address], 02/27/2025 22:28:58 02/27/20 25 02/27/2025 DRUG MONIT OR, PANEL 1, SCREE N, URINE oxycodone NEGATI VE NG/mL <100 See Note A See Note A Not Available [address] [address], [place], [address], 02/27/2025 22:28:58 02/27/20 25 02/27/2025 DRUG MONIT OR, PANEL 1, SCREE N, URINE phencyclidin e NEGATI VE NG/mL <25 See Note A See Note A Not Available [address] [address] [address], [place], [address], 02/27/2025 22:28:58 02/27/20 25 02/27/2025 DRUG MONIT OR, PANEL 1, SCREE N, URINE creatinine 108.1 mg/dL > or = 20.0 Not Available [address] [address] [address], [place], [address], 02/27/2025 22:28:58 02/27/20 25 02/27/2025 DRUG MONIT OR, PANEL 1, SCREE N, URINE pH 7.7 4.5-9. 0 Not Available [address] [address] [address], [place], [address], 02/27/2025 22:28:58 02/27/20 25 02/27/2025 DRUG MONIT OR, PANEL 1, SCREE N, URINE oxidant NEGATI VE mcg/m L <200 Not Available [address] [address] [address], [place], [address], 02/27/2025 22:28:58 02/27/20 25 02/27/2025 DRUG MONIT [...] presu mptiv e; based only on tripp acputo ds, and they have not been confi rmed by a defin itive metho d. Healt kristinere Provi ders needi ng Inter preta tion yanci tance , pleas e conta ct us at 1.877 .40.R XTOX (1.87 7.407 .9869 ) M-F, 8am to 10pm EST Not Available [address] [address] [place], [address], 02/27/2025 22:28:59 02/27/2002/27/2025 CULTU RE, URINE , ROUTI NE culture, urine, routine SEE NOTE CULTU RE, URINE , ROUTI NE Micro Numbe r: [id number] Test Statu s: Final Speci men Sourc e: Urine Speci men Quali ty: Adequ ate Resul t: No Growt h Not Available [address] [address] [place], [address], 02/27/2025 22:28:59 02/27/20 25 03/08/2025 THINP REP TIS PAP (REFL ) HPV MRNA E6/E7 clinical information: normal Pregn ant Not Available [facility] [address] [address] [place], [address], 03/08/2025 08:16:51 02/27/20 25 03/08/2025 THINP REP TIS PAP (REFL ) HPV MRNA E6/E7 LMP: normal NONE GIVEN Not Available [facility] [address] [address] [place], [address], 03/08/2025 08:16:51 02/27/20 25 03/08/2025 THINP REP TIS PAP (REFL ) HPV MRNA E6/E7 prev. Pap: normal NONE GIVEN Not Available [address], [address], 03/08/2025 08:16:51 02/27/20 25 03/08/2025 THINP REP TIS PAP (REFL ) HPV MRNA E6/E7 prev. BX: normal NONE GIVEN Not Available [address] [place], [address], 03/08/2025 08:16:51 02/27/20 25 03/08/2025 THINP REP TIS PAP (REFL ) HPV MRNA E6/E7 source: normal Cervi x, Endoc ervix Not Available [address] [place], [address], 03/08/2025 08:16:51 02/27/2003/08/2025 THINP REP TIS PAP (REFL ) HPV MRNA E6/E7 statement of adequacy: normal Satis facto ry for evalu ation . Endoc ervic al/tr ansfo rmati on zone compo nent prese nt. Not Available [address], [address], 03/08/2025 08:16:51 02/27/2003/08/2025 THINP REP TIS PAP (REFL ) HPV MRNA E6/E7 general categorizati on: abnormal Cytol ogy Resul ts: Epith elial Cell Abnor malit y Not Available [address] [place], [address], 03/08/2025 08:16:51 02/27/2003/08/2025 THINP REP TIS PAP (REFL ) HPV MRNA E6/E7 interpretati on/result: abnormal Low Grade Squam ous Intra epith elial Lesio n (LSIL ) Not Available [address] [place], [address], 03/08/2025 08:16:51 02/27/20 25 03/08/2025 THINP REP TIS PAP (REFL ) HPV MRNA E6/E7 comment: normal This Pap test has been evalu ated with [employer] . Sugge st clini rajiv corre latio n and follo w-up as clini solomon appro priat e Not Available [address] [address] [place], [address], 03/08/2025 08:16:51 02/27/20 25 03/08/2025 THINP REP TIS PAP (REFL ) HPV MRNA E6/E7 cytotechnolo gist: normal KMS, CT( CP) CT Scree pat locat ion: [address] [address] [place] [address] Not Available [address] [address] [place], [address], 03/08/2025 08:16:51 02/27/20 25 03/08/2025 THINP REP TIS PAP (REFL ) HPV MRNA E6/E7 pathologist: normal Alisha monique M.D., Board Certi fied in [place] Patho logy and Cytop athol ogy. Phone : [phone] (elec troni c signa josé) Patho logis t Relea se Date/ Time: 03/06 09:25 AM Not Available [address] [address] [place], [address], 03/08/2025 08:16:51 02/27/20 25 03/08/2025 THINP REP [...] clini rajiv infor amy raphael. Not Available [facility] [address] [place], [address], 03/08/2025 08:16:51 02/27/20 25 03/08/2025 HPV MRNA [...] refer to http: //[facility] raphael.patience stdia gnost ics.c om/fa q/FAQ 129v1 (This link if provi ded for infor amy raphael/ educcatracho ring l purpo ses only. ) Not Available [facility] [address] [place], [address], 03/08/2025 08:16:53 02/27/20 25 02/26/2025 CT + NG + TV, DNA, urine /swab Chlamydia negati ve Not Available [facility] ([facility]) [address] [place], [address], 02/25/2025 18:55:26 02/27/20 25 02/26/2025 CT + NG + TV, DNA, urine /swab Gonorrhea negati ve Not Available [facility] ([facility]) [address] [place], [address], 02/25/2025 18:55:26 02/27/2002/26/2025 CT + NG + TV, DNA, urine /swab Trichomonas negati ve Not Available [facility] ([facility]) [address] [place], [address], 02/25/2025 18:55:26 07/02/20 25 07/02/2025 CBC WBC 11.1 x10 4.0-10 .5 high Not Available [facility] [address] [facility] Nuria [facility] 1, [place], [address], 07/02/2025 10:24:57 07/02/20 25 07/02/2025 CBC RBC 3.96 x10 3.50-5 .50 Not Available [facility] [address] [facility] 1, [place], [address], 07/02/2025 10:24:57 07/02/20 25 07/02/2025 CBC HGB 12.0 g/dL 12.0-1 6.0 Not Available [facility] [address] [facility] 1, [place], [address], 07/02/2025 10:24:57 07/02/20 25 07/02/2025 CBC HCT 37.1 % 37.0-4 7.0 Not Available [facility] [address] [facility] 1, [place], [address], 07/02/2025 10:24:57 07/02/20 25 07/02/2025 CBC MCV 93.8 fL 80.0-9 9.9 Not Available [facility] [address] [facility] [address] [facility] 1, [place], [address], 07/02/2025 10:24:57 07/02/20 25 07/02/2025 CBC MCH 30.4 pg 27.0-3 2.0 Not Available [facility] [address] [facility] [address] [facility] 1, [place], [address], 07/02/2025 10:24:57 07/02/20 25 07/02/2025 CBC MCHC 32.4 g/dL 32.0-3 6.0 Not Available [facility] [address] Felisha Quiñones [facility] 1, [place], [address], 07/02/2025 10:24:57 07/02/20 25 07/02/2025 CBC RDW 12.9 % 11.5-1 4.5 Not Available [facility] [address] [facility] Qu[facility] 1, [place], [address], 07/02/2025 10:24:57 07/02/20 25 07/02/2025 CBC plt 227.7 x10 140.0- 451.0 Not Available [facility] [address] [facility] [address], [place], [address], 07/02/2025 10:24:57 07/02/20 25 07/02/2025 CBC lymphocytes % 15.5 % 20.0-5 0.0 low Not Available [facility] [address] [facility] Qu[facility] 1, [place], [address], 07/02/2025 10:24:57 07/02/20 25 07/02/2025 CBC granulcytes % 78.3 % 30.0-7 0.0 high Not Available [facility] [address] [facility] 1, [place], [address], 07/02/2025 10:24:57 07/02/20 25 07/02/2025 CBC monocytes % 4.2 % 2.0-16 .0 Not Available [facility] [address] [facility] Qu[facility] 1, [place], [address], 07/02/2025 10:24:57 07/02/20 25 07/02/2025 CBC granulcytes# 8.7 x10 Not Jenny ilable [facility] [address] [facility] s[facility] 1, [place], [address], 07/02/2025 10:24:57 07/02/20 25 07/02/2025 CBC lymphocytes # 1.7 x10 Not Available [facility] [address] [facility], [place], [address], 07/02/2025 10:24:57 07/02/20 25 07/02/2025 CBC monocytes # 0.5 x10 Not Avai lable [facility] [address] [facility] 1, [place], [address], 07/02/2025 10:24:57 07/02/20 25 07/02/2025 GLUCO SE SCREE N glucose screen 135.0 mg/dL Not Available [facility] [address] [facility] [address], [place], [address], 07/02/2025 10:30:30 02/19/20 25 02/12/2025 US, obste tric, 1st trime ster No observ ation record ed. [email or web address] Not Available 02/19 09:09:34 04/25/20 25 04/18/2025 US, obste tric, follo w-up No observ ation record ed. [email or web address] [facility] [address] [place], [address], 04/29/2025 09:24:34 05/11/20 25 05/07/2025 US, obste tric, 2nd trime ster No observ ation record ed. [facility] [address] [place], [address], 05/13/2025 17:57:21 07/05/20 25 07/02/2025 imagi ng/di agnos tic resul t No observ ation record ed. [facility] [address] [facility] [place], [address], 07/09/2025 10:35:54 Result Notes None recorded. Problems Name Problem SNOMED Code Status Onset Date Resolution Date Notes Provider Name and Address Organization Details Recorded Time Rheumatoid arthritis 85858135 Active 2022 KERWIN roper [facility], L.L.CRemigio 5 14:16:25 Pain of knee region 8398096272 Completed 202301/24/2025 KERWIN roper [facility], LRemigioL.CRemigio 5 14:16:23 Family history of diabetes mellitus 286612395 Active 2023 KERWIN roper [facility], LRemigioL.CRemigio 5 14:16:18 Normal 06222582 Active 2024 ROXI Vang [facility], L.L.CRemigio 5 10:22:35 Normal 67166770 Active 2024 ROXI Vang [facility] 5 10:22:35 Placenta previa partialis 94248009 Active 2024 Alvaro Angelo MD [address] [place] [address], [address], [facility], LRemigioL.CRemigio 5 02:46:26 Low-lying placenta 531977326 Active 2024 Alvaro Angelo MD [address] [place], [address], [facility], L.L.CRemigio 5 11:36:47 Problem Notes None recorded. Procedures Surgical History Date Name Laterality Status Provider Name and Address Organization Details Recorded Time 02/27/20 25 Date of Last Pap Smear completed KERWIN DUNAWAY [facility], LRemigioLRemigioCRemigio 09/02/2025 18:39:21 02/27/20 25 liquid based cervical cytology screening completed [facility] 09/02/2025 18:39:54 01/31/20 24 colposcopy completed [facility] L.L.CRemigio 01/24/2025 14:17:49 01/31/20 24 hysteroscopy completed [facility] L.L.CR[facility]igio 01/24/2025 14:18:46 arthroscopy of left knee joint completed [facility], L.LRemigioCRemigio 01/24/2025 14:17:01 cholecystectomy completed [facility] L.L.CRemigio 01/24/2025 14:17:33 Imaging Results None recorded. Procedure Notes None recorded. Medical Equipment None Reported. Allergies Allergen ID Allergen Name Allergen Category Reaction Reaction Severity Criticality Documentation Date Start Date Code Code System Note Provider Name and Address Organization Details Recorded Time 49457 Bactrim medicatio n hives moderate Not available 05/21/2023 55417 9 RxNorm TREBA NEUSCHWAN KAVITHA [facility] 5 15:30:03 92827 Product containin g penicilli n (product) medicatio n hives moderate Not available 05/21/2023 11085 8001 SNOMED TREBA NEUSCHBRIELLE [facility] 5 15:30:03 17461 Augmentin medicatio n hives moderate Not available 01/24/2025 34720 2 RxNorm KERWIN [facility] 5 14:19:18 26048 Celebrex medicatio n other moderate Not available 01/24/2025 32973 7 RxNorm TREBA NEUSCHWAN [facility] 5 15:30:03 06351 Substance with sulfonami de structure and antibacte rial mechanism of action (substanc e) medicatio n hives moderate Not available 04/18/2025 27009 8003 SNOMED TREBA NEUSCHWAHailey KAVITHA [facility], [facility], [facility] 5 15:30:03 13222 amoxicill in / clavulana te medicatio n hives Not available high 09/06/20252022 56083 RxNorm Yessy ates PCN and amoxi cilli n fine Not Available anna - [employer] - prod 5 07:58:34 75475 celecoxib medicatio n Not available Not available [facility] 09/06/20252022 57309 7 RxNorm Not Available [employer] - prod 5 07:58:34 Medications [...] Last Updated DateTime 170.18 cm 36.7 kg/m2 152188. 71 g 18 /min 99 % 94 /min 98.2 [degF] 124/66 mm[Hg] KERWIN DUNAWAY [facility] 11:07:48 Social History Question Answer Notes LastModified by Organizat ion Details LastModified Time Tobacco Smoking Status Former Smoker ANTONIO roper [facility] 01/24/2023 10:09:31 [...] 01/24/2025 Have You Recently Traveled Abroad? No [email or web address] Information not available 01/24/2023 Do You Have Difficulty Walking Or Climbing Stairs? No [email or web address] Information not available 01/24/2023 Sex: Unknown Functional [...] independently without assistance or assistive devices? YESWOREST [email or web address] Information not available 01/24/2023 Do you have difficulty doing errands alone? No [email or web address] Information not available 01/24/2023 Are you able to care for yourself independently? Yes [email or web address] Information not available 01/24/2023 What is your [...] difficulty concentrating, remembering or making decisions? No [email or web address] Information no t available 01/24/2023 Family History [...] N Blood Transfusion N Breast Cancer N Hypothyroidism N Depression N COPD N [...] Recorded Time IPV 09/28/2000 completed Susan roper [facility] 10/09/2024 09:35:10 MMR 04/11/1996 completed Susan roper [facility] 10/09/2024 09:35:10 MMR 09/28/2000 completed Susan roper [facility] 10/09/2024 09:35:10 Tdap 11/17/2010 completed Susan roper [facility] 10/09/2024 09:35:10 Tdap 02/20/2015 completed Susan roper [facility] 10/09/2024 09:35:10 Hep B, unspecified formulation 1995 completed Susan roper [facility] 10/09/2024 09:35:10 Hep B, unspecified formulation 02/28/1996 kaushal roper [facility] 10/09/2024 09:35:10 Hep B, unspecified formulation 1995 completed Susan Wilson null, [facility] 10/09/2024 09:35:10 OPV, trivalent 1995 completed Susan Wilson null, [facility] 10/09/2024 09:35:10 OPV, trivalent 02/28/1996 completed Susan Wilson null, [facility] 10/09/2024 09:35:10 OPV, trivalent 1995 completed Susan Wilson null, [facility] 10/09/2024 09:35:10 DTP-Hib 11/29/1996 completed Susan Wilson null, [facility] 10/09/2024 09:35:10 DTP-Hib 1995 completed Susan Wilson null, [facility] 10/09/2024 09:35:10 DTP-Hib 02/28/1996 completed Susan Wilson null, [facility] 10/09/2024 09:35:10 DTP-Hib 1995 completed Susan Wilson null, [facility] 10/09/2024 09:35:10 DTaP 09/28/2000 completed Susan Wilson null, [facility] 10/09/2024 09:35:10 Past Encounters Encounter ID Performer Location Encounter Start Date Encounter Closed Date Diagnosis/Indication Diagnosis SNOMED-CT Code Diagnosis ICD10 Code Diagnosis IMO Codes Diagnosis Note [id number] Alvaro Angelo MD [facility] ([facility]) [address] [place] [address] [phone] 06/18/2025 11:21:56 06/18/2025 12:15:35 Normal 67134792 Z34.81 Gestation period, 26 weeks 56620147 Z3A.26 [id number] Alvaro Angelo MD [facility] ([facility]) [address] [place] [address] [id number] 07/02/2025 08:58:15 07/03/2025 12:00:14 [id number] Alvaro Angelo MD [facility] ([facility]) [address] [place] [address] [phone] 5 07/02/2025 08:58:47 07/04/2025 04:05:41 [id number] Alvaro Angelo MD [facility] ([facility]) [address] [place] [address] [phone] 5 07/02/2025 10:39:30 07/02/2025 11:45:25 Normal 71792259 Z34.83 [id number] Gestation period, 28 weeks 82287132 Z3A.28 [id number] Health Concerns Section Related Observation LastModified by Organization Detai ls LastModified Time None Recorded Concern Status LastModified by Organization Details LastModified Time None Recorded Payers Encounter Date Sequence Insurance Name Policy Number Policy Fierro Covered Member ID Fierro Member ID Guarantor Name 07/02/2025 1 LANETTE (PPO) [id number] Jeffy Zimmerman [id number] Jeffy Zimmerman Notes Date Note Type [...] noted in the HPI Alvaro Angelo MD [address] [place] [address], [phone], [facility], LFelisha 07/02/2025 11:42:06 OBGyn Episode Ob Episode Information Episode Created Date Number of Fetuses Patient Bloodtype Patient rh Status Prepregnancy Weight lbs Domestic Partner Domestic Partner Phone Father Name Stretch 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 Status 01/25/20 1 O Positive Damián OPEN [...] Resolution Snomed Code Not e Normal 02/25/2025 [id number] Merrill Calculation Initial Merrill Date Initial Exam [...] Weight in lbs Pre/Post Dialysis Refused Weight 227.054382602629 BP Diastolic BP Location Tested BP Systolic [...] Weight in lbs Pre/Post Dialysis Refused Weight 221.533805625564 BP Diastolic BP Location Tested BP Systolic [...] Weight in lbs Pre/Post Dialysis Refused Weight 221.242559333981 BP Diastolic BP Location Tested BP Systolic [...] Weight in lbs Pre/Post Dialysis Refused Weight 225.540917072395 BP Diastolic BP Location Tested BP Systolic [...] Weight in lbs Pre/Post Dialysis Refused Weight 230.577812145721 BP Diastolic BP Location Tested BP Systolic BP Type 62 L arm 106 Fetus Heart Rate Present A 148 Present Fetus Movement A Yes Comments heartburn Flowsheet Date 06/18/2025 Sierra Score Blood Edema Fundus Height Fundus Units Glucose Ketones Leukocytes Nitrite Labor Signs Protein Cervic Dilation Cervic Effacement Cervic Station Type Weight in lbs Pre/Post Dialysis Refused Weight 229.6485300712 BP Diastolic BP Location Tested BP Systolic [...] Weight in lbs Pre/Post Dialysis Refused Weight 234.149829846025 BP Diastolic BP Location Tested BP Systolic [...] Weight in lbs Pre/Post Dialysis Refused Weight 232.210643210990 BP Diastolic BP Location Tested BP Systolic [...] Weight in lbs Pre/Post Dialysis Refused Weight 236.911716550053 BP Diastolic BP Location Tested BP Systolic BP Type 76 120 Fetus Heart Rate Present A 144 Present Fetus Movement A Yes Comments mild swelling, heartburn int ermittent Flowsheet Date 08/13/2025 Sierra Score Blood Edema Fundus Height Fundus Units Glucose Ketones Leukocytes Nitrite Labor Signs Protein Cervic Dilation Cervic Effacement Cervic Station 34 cm none trace [place] neg Type Weight in lbs Pre/Post Dialysis Refused Weight 239.683170543347 BP Diastolic BP Location Tested BP Systolic [...] Weight in lbs Pre/Post Dialysis Refused Weight 241.331640342359 BP Diastolic BP Location Tested BP Systolic [...] Cervic Effacement Cervic Station none none Negative [place] neg 2cm 70% -3 Type Weight in lbs Pre/Post Dialysis Refused Weight 241.983332061655 BP Diastolic BP Location Tested BP Systolic [...] Weight in lbs Pre/Post Dialysis Refused Weight 243.898326531227 BP Diastolic BP Location Tested BP Systolic BP Type 70 120 Fetus Heart Rate Present Fetus Movement Comments Flowsheet Date 09/10/2025 Sierra Score Blood Edema Fundus Height Fundus Units Glucose Ketones Leukocytes Nitrite Labor Signs Protein Cervic Dilation Cervic Effacement Cervic Station none trace Negative [place] neg 2cm 70% -3 Type Weight in lbs Pre/Post Dialysis Refused Weight 243.462681825027 BP Diastolic BP Location Tested BP Systolic [...] Weight in lbs Pre/Post Dialysis Refused Weight 242.997483529207 BP Diastolic BP Location Tested BP Systolic [...] Weight in lbs Pre/Post Dialysis Refused Weight 244.071276665727 BP Diastolic BP Location Tested BP Systolic [...] Weight in lbs Pre/Post Dialysis Refused Weight 248.695560026088 BP Diastolic BP Location Tested BP Systolic [...] Estim ated Date of Delivery false Thalassemia (Uzbek, Russian, Mediterranean, Or Background): MCV < 80 false Neural Tube Defect (Meningomyelocele, Spina Bifi da, Or Anencephaly) false Congenital Heart Defect false Down Syndrome false Maco-Sachs (eg, Hinduism, Cajun, Thai-[place]wood) f alse Dustin Disease false Sickle Cell Disease Or Trait () false Hemophilia Or Other Blood Disorders false Muscular Dystrophy false Cystic Fibrosis false [place] Chorea false Intellectual Disability/Autism false If Yes, [...]
[2025-09-25] MEDS: ceFAZolin 2,000 mg SDV 2000 MG IVP (15:23)
[2025-09-25] MEDS: oxytocin 30 UNIT/500 ML BAG IV (18:20)
[2025-09-25] MEDS: ROPivacaine premix 200 MG/100 ML PREMIX 10 MG EPIDURAL (19:22)
--- NOTE | 2025-09-25 19:26 | P.ANESASSM_ITS ---
Pre-Anesthetic Assessment Height/Weight: Height 1.73 m Weight 111.13 kg Temp Pulse BP Pulse Ox O2 Del Method 98.1 F 92 125/71 100 Room Air 09/25/25 15:00 09/25/25 19:20 09/25/25 19:20 09/25/25 19:20 09/25/25 14:25 Preop Diagnosis: intrauterine labor epidural Familial anesthetic complications: none Was Beta Phuong taken within 24 hours: N/A Was Clonidine taken within 24 hours: N/A Social No alcohol and No tobacco Exam alert, oriented x 3, clear to auscultation bilaterally and regular rate & rhythm Airway Mallampati: Class II Dentition: full History/ROS No significant history except as noted Pulmonary None reported CV/HEM None reported None reported Hepatic None reported GI None reported Metabolic None reported Musc/skel None reported Neuropsych None reported Anesthetic Plan ASA status: 2 Anesthesia: Anesthesia Evaluation and Regional (specify below) (epidural ) Risk of > 500 ml blood loss (7ml/kg in children): Yes, adequate IV access and fluids planned Medications/Allergies Home Medications ?Medication ?Instructions ?Recorded ?Confirmed ?Last Taken ?Type cetirizine 10 mg capsule (Zyrtec) 10 mg PO DAILY PRN a llergies 11/13/20 09/25/25 12/31/23 History acetaminophen 325 mg capsule 325 mg PO Q4H PRN fever o r 01/31/24 09/25/25 Unknown Rx postoperative pain #60 caps Allergies Allergy/AdvReac Type Severity Reaction Status Date / Time amoxicillin (From Augmentin) Allergy Mild ALGY-Rash Verified 03/22/24 10:42 clavulanic acid (From Allergy Mild ALGY-Rash Verified 03/22/24 10:42 Augmentin) celecoxib (From Celebrex) Allergy bleeding Verified 03/22/24 10:42 Penicillins Allergy Hives Verified 03/22/24 10:42 sulfamethoxazole (From Allergy rash Verified 03/22/24 10:42 Bactrim) trimethoprim (From Bactrim) Allergy rash Verified 03/22/24 10:42 Current Medications Generic Name Dose Route Start Last Admin Trade Name Freq PRN Reason Stop Dose Admin Dextrose/Lactated Ringer's 1,000 mls @ 125 mls/hr 09/25/25 15:00 09/25/25 15:23 Dextrose 5%-Lactated Ringers IV 125 mls/hr .Q8H LOREN Administration Lactated Ringer's 1,000 mls @ 999 mls/hr 09/25/25 18:07 09/25/25 18:22 Lactated Ringers IV 999 mls/hr .Q1H1M PRN Administration See label comments Oxytocin 30 unit in 500 mls @ 1 mls/hr 09/25/25 18:15 09/25/25 18:50 Pitocin IV 3 milliunit/min .Q24H LOREN 3 mls/hr Protocol Titration 1 MILLIUNIT/MIN [facility] Anesthesia Medical History Abnormal uterine bleeding due to endometrial polyp SHITAL I (cervical intraepithelial neoplasia I) (~2022) 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 Performed by [facility]. S/P laparoscopic cholecystectomy (~2014) Performed at [facility] in [place], [place] S/P left knee arthroscopy (~10/2013) Performed at [facility] in [place], [place] Family History Father Diabetes Grandmother Ovarian cancer paternal Other Lupus Denies family history of Rheumatoid arthritis CAD (coronary artery disease) Hyperlipidemia Chronic kidney disease (CKD) Hypertension Stroke Social History Smoking and tobacco/nicotine status: never used tobacco/nicotine Female Reproductive History : 3 Data Anesthesia 09/25/25 14:55 Short CBC 09/25/25 Range/Units 14:55 WBC 13.10 H (3.29-11.43) 10^3/uL Hgb 12.00 (11.27-16.99) g/dL Hct 36.3 (36-47) % MCV 87.7 (85-98) fl Plt Count 220 (157-399) 10^3/cmm Neut % (Auto) 75.0 % Neut # (Auto) 9.83 H (1.8-7.7) 10^3/uL Blood Bank 09/25/25 14:55 Blood Type O Positive Rho(D) Type Rh positive Antibody Screen Negative Anesthesia Procedures Epidural Time Out Performed: Yes Consents Signed: Procedure Consent Consent: requested by attending/covering physician, from patient, risks and benefits reviewed and patient agrees to proceed Lumbar Level: L4-L5 Epidural position: sitting Epidural procedure: sterile prep of area, 1% lidocaine to numb the area, 18 g needle, negative for paresthesia passed, neg for paresthesia, test dose given, 1.5% xylocaine 1:200k epi, 0.2% Ropivacaine bolus ml (5), placed PCEA, no systemic response, sterile dressing applied, L.U.D. no apparent complications and 0.2% Ropiavacaine @ mls/hr (13) Additional Comments: GRACE 5.5cm, catheter easily threaded to 5cm in the space, vs monitored throughout and remained stable. Pt educated on DIRECTOR OF ONCOLOGY and reports adequate pain relief with epidural
[2025-09-25] MEDS: ondansetron 2 mg/ML SDV 2 mL 4 MG IVP (20:37)
[2025-09-25] MEDS: ceFAZolin 1,000 mg SDV 1000 MG IVP (23:31)
[2025-09-26] VITALS (21 sets, daily range): BP systolic 90–123; BP diastolic 48–72; PULSE 69–179; RESP 16; TEMP 36.6–36.8; O2SAT 98
[2025-09-26] MEDS: ondansetron 2 mg/ML SDV 2 mL 4 MG IVP (02:31)
[2025-09-26] MEDS: ROPivacaine premix 200 MG/100 ML PREMIX 10 MG EPIDURAL (02:46)
[2025-09-26] MEDS: tranexamic acid 1,000 MG/100 ML PREMIX 600 MG IV (03:32)
--- NOTE | 2025-09-26 03:52 | PM.OPHPUD ---
Labor & Delivery H&P Update Date of Procedure: September 26, 2025 Date H&P Performed: 09/25/25 Changes to previous documentation: Spontaneous rupture of membranes Admission Diagnosis: 30-year-old 3 para 1-0-1-1 at 40 weeks and 2 days presenting with spontaneous rupture membranes Preop diagnosis: intrauterine Planned procedure: Spontaneous vaginal delivery Other information: The patient is an otherwise healthy pleasant 30-year-old female who has had an unremarkable . She has received consistent care. There have been no concerns throughout her . She presented to my office yesterday complaining of leaking fluid. In my office she was noted be grossly ruptured. She soaked most of a Chux and continued to leak. She then went to the hospital for induction due to spontaneous rupture membranes Related Problem List Diagnoses 1. 40 weeks gestation of : 2. Spontaneous rupture of membranes: A&P Assessment and plan 1. 40 weeks gestation of : We will monitor the patient and consider augmentation of her labor if she does not start making significant cervical change. She is GBS positive and we will start her on GBS protocol Status: Acute 2. Spontaneous rupture of membranes: Status: Acute PDMP PDMP Reviewed: Not Reviewed
--- NOTE | 2025-09-26 03:56 | PM.DELIVERY ---
Delivery Note: Date of delivery: September 26, 2025 Pre-delivery diagnoses: 30-year-old 3 para 1-0-1-1 at 40 weeks estimated gestational age with spontaneous rupture of membranes Post-delivery diagnoses: Status post spontaneous vaginal delivery Procedure: Spontaneous vaginal delivery Delivering Physician: Alvaro Angelo Estimated blood loss (mL): 150 Pre-Delivery Course: The patient presented to the hospital with spontaneous rupture of membranes. After waiting several hours and noting that she did not begin having painful consistent contractions, we made the decision to initiate Pitocin. An epidural was also placed. She then progressed to complete without difficulty. She was placed on GBS protocol upon arrival at the hospital as well. That was continued until delivery of the . Delivery: DELIVERY: The patient progressed to complete without difficulty. She delivered a male with a weight of 8 pounds 4 ounces with Apgars of 9, 9. The baby was delivered from the SARAH position and placed on the mother's abdomen. The cord was then clamped and cut 1 minute after delivery. There was no nuchal cord. There was no meconium. The placenta and 3 vessel cord were delivered intact shortly thereafter. The perineum and vaginal vault were carefully examined. No significant lacerations were noted. Both the mother and the baby were in stable condition. Post-Delivery Status: Good History History History 3 Term 1 0 Miscarriages/Ectopic 1 Living Children 1 A&P Assessment and plan 1. 40 weeks gestation of : I anticipate routine care. 2. Spontaneous rupture of membranes: 3. Spontaneous vaginal delivery: PDMP PDMP Reviewed: Not Reviewed Coding Level of Care Code Acute Code for Chg Fwd Diagnoses 40 weeks gestation of Z3A.40 Spontaneous rupture of membranes Spontaneous vaginal delivery O80
[2025-09-26] MEDS: PRENATAL VIT NO.130/IRON/FOLIC 1 EACH TABLET PO (06:02)
[2025-09-26] MEDS: benzocaine-menthol 78 gm Canister 1 SPRAY TOPICAL (06:04)
[2025-09-26 17:19] LABS: Hematocrit 33.8 % (36-47); Hemoglobin 11.20 g/dL (11.27-16.99); Mean Corpuscular HGB Conc 33.1 g/dL (30-55); Mean Corpuscular Hemoglobin 29.6 pg (27-33); Mean Corpuscular Volume 89.2 fl (85-98); Platelet Count 202 10^3/cmm (157-399); Red Blood Count 3.79 10^6/uL (3.85-5.65); White Blood Count 15.05 10^3/uL (3.29-11.43)
[2025-09-27 04:00] VITALS: BP 115/70; PULSE 70; RESP 16; O2SAT 100
[2025-09-27] MEDS: PRENATAL VIT NO.130/IRON/FOLIC 1 EACH TABLET PO (06:03)
[2025-09-27 06:09] VITALS: PULSE 70; RESP 16; O2SAT 100
--- NOTE | 2025-09-27 06:52 | ANE.PACU2 ---
Inpatient post-anesthesia follow up: Airway intact: Yes Vital signs: Temperature 98.0 F Pulse Rate 70 Respiratory Rate 16 Blood Pressure 115/70 Pulse Oximetry 100 Oxygen Delivery Me thod Room Air Oxygen Flow Rate Fraction of Inspir ed Oxygen Hydration adequate: Yes Nausea and vomiting: No Pain level: 1 Mental status: Baseline Epidural Start/End: Epidural Start Date: 09/25/25 Epidural Start Time: 19:20 Epidural End Date: 09/26/25 Epidural End Time: 06:10
--- NOTE | 2025-09-27 08:32 | PM.OBGYDC ---
Discharge Providers PROJECT ASSISTANT Date of Admission: 09/25/25 14:25 Date of Discharge: 09/27/25 Attending Provider at Admission: Alvaro Angelo MD Attending Provider at Discharge: Alvaro Angelo MD Primary Care Provider: Jean-Pierre Rao MD Diagnoses at Discharge Discharge Diagnosis 1. 40 weeks gestation of : 2. Spontaneous rupture of membranes: 3. Spontaneous vaginal delivery: Reason for Visit Reason for Visit: ROM Hospital Course Hospital Course The patient presented to the hospital with spontaneous rupture of membranes. Her labor was augmented with Pitocin. She was GBS positive, and received adequate GBS prophylaxis. An epidural was placed. She progressed to complete and had an unremarkable spontaneous vaginal delivery of a healthy appearing male infant. Her course was also unremarkable. She breast-fed well. Her bleeding was within normal limits. Her pain was well-controlled. Information Peripartum Data: Delivery Method: Vaginal Physical Exam Narrative: The patient is alert. She appears comfortable. Her heart has a regular rate and rhythm with no murmurs appreciated. Lungs are clear to auscultation bilaterally. Her fundus is firm and below the umbilicus. Urinary Catheter Management: Armas Latex: Cath Placed During This Visit: yes, but has since been removed by the nurse Reason for Continuing Indwelling Catheter: Decision to DC Catheter Urinary Catheter Date of Insertion: 09/25/25 Urinary Catheter Time of Insertion: 20:20 Date Urinary Catheter Removed: 09/26/25 Time Urinary Catheter Discontinued: 02:35 History History History 3 Term 1 0 Miscarriages/Ectopic 1 Living Children 1 Discharge Data Studies Completed and Pending Laboratory Results WBC 15.05 10^3/uL (3.29-11.43) H 09/26/25 17:00 RBC 3.79 10^6/uL (3.85-5.65) L 09/26/25 17:00 Hgb 11.20 g/dL (11.27-16.99) L 09/26/25 17:00 Hct 33.8 % (36-47) L 09/26/25 17:00 MCV 89.2 fl (85-98) 09/26/25 17:00 MCH 29.6 pg (27-33) 09/26/25 17:00 MCHC 33.1 g/dL (30-55) 09/26/25 17:00 RDW 12.9 % (12.1-15.1) 09/26/25 17:00 Plt Count 202 10^3/cmm (157-399) 09/26/25 17:00 MPV 12.4 fL (7.4-10.4) H 09/26/25 17:00 Neut % (Auto) 75.0 % 09/25/25 14:55 Lymph % (Auto) 17.6 % 09/25/25 14:55 [place] % (Auto) 5.8 % 09/25/25 14:55 Eos % (Auto) 0.9 % 09/25/25 14:55 Baso % (Auto) 0.2 % 09/25/25 14:55 Neut # (Auto) 9.83 10^3/uL (1.8-7.7) H 09/25/25 14:55 Lymph # (Auto) 2.3 10^3/uL (0.8-4.8) 09/25/25 14:55 [place] # (Auto) 0.8 10^3/uL (0.2-0.9) 09/25/25 14:55 Eos # (Auto) 0.1 10^3/uL (0.0-0.8) 09/25/25 14:55 Baso # (Auto) 0.0 10^3/uL (0.0-0.1) 09/25/25 14:55 Nucleated RBC % (auto) 0 % 09/25/25 14:55 Nucleated RBCs # 0.0 /100WBC 09/25/25 14:55 Blood Type O Positive 09/25/25 14:55 Rho(D) Type Rh positive 09/25/25 14:55 Antibody Screen Negative 09/25/25 14:55 Vitals Last Vital Signs Temp 98.0 F 09/26/25 20:42 Pulse 70 09/27/25 06:09 Resp 16 09/27/25 06:09 BP 115/70 09/27/25 04:00 Pulse Ox 100 09/27/25 06:09 O2 Del Method Room Air 09/27/25 04:00 Results Labs OB ([facility]): Obstetrics US 07/02/25 Blood Type O Positive 09/25/25 Antibody Screen Negative 09/25/25 Hct, (36-47) 33.8 % L 09/26/25 Hgb, (11.27-16.99) 11.20 g/dL L 09/26/25 Rho(D) Type Rh positive 09/25/25 Plt Count, (157-399) 202 10^3/cmm 09/26/25 Micro Urine Specimen 01/31/24 Discharge Plan Discharge Patient Disposition: Home Condition: Stable Prescriptions: New ibuprofen 800 mg Tablet 800 mg PO TID Qty: 45 0RF Vitamin 27 mg iron- 800 mcg Tablet 1 tab PO DAILY Qty: 90 0RF Discontinued Zyrtec 10 mg capsule 10 mg PO DAILY PRN (Reason: allergies) acetaminophen 325 mg capsule 325 mg PO Q4H PRN (Reason: fever or postoperative pain) Qty: 60 0RF Referrals: Alvaro Angelo MD [Physician, Family Practice] - 6 Weeks Discharge Diet: Usual diet Discharge Activity: Limit activity as instructed Patient Instructions: Depression (DC), Bleeding (DC), Preeclampsia and Eclampsia After Delivery (GEN), Hemorrhage (DC), OB Discharge Report, OB Food/Drug Interaction Guide, OB Care at Home, Opioid Safety, OB Vaginal Deliveries, Patient Portal & [place] Instructions Discharge Attestations PROJECT ASSISTANT Time Spent in Discharge Care*: less than 30 min Coding Level of Care Code Acute Code for Chg Fwd Diagnoses 40 weeks gestation of Z3A.40 Spontaneous rupture of membranes Spontaneous vaginal delivery O80
[2025-09-27 12:00] VITALS: BP 124/72; PULSE 78; O2SAT 98
== END 2025-09-27 10:21 | disposition home or self-care (01) | DRG 807 ==
PROVIDERS: Admitting Provider Family Medicine; PCP Otolaryngology; Visit Provider Family Medicine
DX: O48.0 Post-term pregnancy (principal); Z37.0 Single live birth; Z3A.40 40 weeks gestation of pregnancy; O99.824 Streptococcus B carrier state complicating childbirth
CPT/HCPCS: 36415; 51702; 59025; 59409; 85025; 85027; 86850; 86900; 99211; J0690; J2405; J2590; J2795; J7120; J7121; J9999

== ENCOUNTER 2025-09-30 23:33 | Emergency (ER) | payer BC, SELFPAY ==
--- OUTSIDE RECORDS SUMMARY | 2025-09-30 23:39 | XMS_ITS | Continuity of Care Document ---
Author Organization [facility] Fabio [facility] [place], [place], [facility] ([facility]) Address [address] [place] [address] Assessment Encounter Date Assessment Date Assessment LastModified by Organization Details LastModified Time 09/24/2025 09/24/2025 Induction set for Tuesday night. [email or web address] Not available 09/24/2025 11:30:20 Plan of Treatment Reminders Order Date Submit Date Provider Last Modified By Organization Details Last Modified Time Details Appointments POST-PA RTUM VISIT 026 11:00AM Alvaro Angelo MD Not available Not available Not available Lab None recorde d. Referral None recorde d. Procedures None recorde d. Surgeries None recorde d. Imaging None recorde d. Medication Orders None recorde d. Patient TargetsNo targets recorded. Patient InstructionsNo instructions recorded. Reason for Referral None Reported. Results Created Date Observation Date Name Description Value Unit Range Abnormal Flag Note LastModifiedBy Organization Detail LastModifiedTime 02/27/2002/27/2025 URINA LYSIS , COMPL ETE color YELLOW yellow normal Not Available [facility] [address] [address] [place], [address], 02/27/2025 22:28:50 02/27/20 25 02/27/2025 URINA LYSIS , COMPL ETE appearance CLEAR clear normal Not Available [facility] [address] [address] [place], [address], 02/27/2025 22:28:50 02/27/20 25 02/27/2025 URINA LYSIS , COMPL ETE specific gravity 1.012 1.001- 1.035 normal Not Available [address], [address], 02/27/2025 22:28:50 02/27/20 25 02/27/2025 URINA LYSIS , COMPL ETE pH 7.5 5.0-8. 0 normal Not Available [address], [address], 02/27/2025 22:28:50 02/27/20 25 02/27/2025 URINA LYSIS , COMPL ETE glucose NEGATI VE negati ve normal Not Available [address], [address], 02/27/2025 22:28:50 02/27/20 25 02/27/2025 URINA LYSIS , COMPL ETE bilirubin NEGATI VE negati ve normal Not Available [address], [address], 02/27/2025 22:28:50 02/27/20 25 02/27/2025 URINA LYSIS , COMPL ETE ketones NEGATI VE negati ve normal Not Available [address], [address], 02/27/2025 22:28:50 02/27/20 25 02/27/2025 URINA LYSIS , COMPL ETE occult blood NEGATI VE negati ve normal Not Available [facility] [address], [address], 02/27/2025 22:28:50 02/27/20 25 02/27/2025 URINA LYSIS , COMPL ETE protein NEGATI VE negati ve normal Not Available [address], [address], 02/27/2025 22:28:50 02/27/20 25 02/27/2025 URINA LYSIS , COMPL ETE nitrite NEGATI VE negati ve normal Not Available [facility] [address] [address], [place], [address], 02/27/2025 22:28:50 02/27/20 25 02/27/2025 URINA LYSIS , COMPL ETE leukocyte esterase TRACE negati ve abnormal Not Available [address], [address], 02/27/2025 22:28:50 02/27/20 25 02/27/2025 URINA LYSIS , COMPL ETE WBC NONE SEEN /hpf < or = 5 normal Not Available [address], [address], 02/27/2025 22:28:50 02/27/20 25 02/27/2025 URINA LYSIS , COMPL ETE RBC NONE SEEN /hpf < or = 2 normal Not Available [address], [address], 02/27/2025 22:28:50 02/27/20 25 02/27/2025 URINA LYSIS , COMPL ETE squamous epithelial cells 6-10 /hpf < or = 5 abnormal Not Available [address], [address], 02/27/2025 22:28:50 02/27/20 25 02/27/2025 URINA LYSIS , COMPL ETE bacteria NONE SEEN /hpf none seen normal Not Available [address], [address], 02/27/2025 22:28:50 02/27/20 25 02/27/2025 URINA LYSIS , COMPL ETE hyaline cast NONE SEEN /lpf none seen normal Not Available [address], [address], 02/27/2025 22:28:50 02/27/20 25 02/27/2025 URINA LYSIS , COMPL ETE note This urine was jim zed for the prese nce of WBC, RBC, bacte terry, casts , and other forme d eleme nts. Only those eleme nts seen were repor bruce. Not Available [facility] [address], [address], 02/27/2025 22:28:50 02/27/20 25 02/27/2025 CBC (INCL UDES DIFF/ PLT) white blood cell count 8.9 thous and/u L 3.8-10 .8 normal Not Available [facility] - [address], [address], 02/27/2025 22:28:51 02/27/20 25 02/27/2025 CBC (INCL UDES DIFF/ PLT) red blood cell count 4.42 erick on/uL 3.80-5 .10 normal Not Available [facility] - [address], [address], 02/27/2025 22:28:51 02/27/20 25 02/27/2025 CBC (INCL UDES DIFF/ PLT) hemoglobin 13.2 g/dL 11.7-1 5.5 normal Not Available [facility] [address], [address], 02/27/2025 22:28:51 02/27/20 25 02/27/2025 CBC (INCL UDES DIFF/ PLT) hematocrit 41.4 % 35.0-4 5.0 normal Not Available [facility] [address], [address], 02/27/2025 22:28:51 02/27/20 25 02/27/2025 CBC (INCL UDES DIFF/ PLT) MCV 93.7 fL 80.0-1 00.0 normal Not Available [facility] [address], [address], 02/27/2025 22:28:51 02/27/20 25 02/27/2025 CBC (INCL UDES DIFF/ PLT) MCH 29.9 pg 27.0-3 3.0 normal Not Available [facility] [address], [address], 02/27/2025 22:28:51 02/27/20 25 02/27/2025 CBC (INCL [...] rajiv condi tion. Not Available [facility] [address], [address], 02/27/2025 22:28:51 02/27/20 25 02/27/2025 CBC (INCL UDES DIFF/ PLT) RDW 12.5 % 11.0-1 5.0 normal Not Available [facility] [address], [address], 02/27/2025 22:28:51 02/27/20 25 02/27/2025 CBC (INCL UDES DIFF/ PLT) platelet count 294 thous and/u L 140-40 0 normal Not Available [facility] [address], [address], 02/27/2025 22:28:51 02/27/20 25 02/27/2025 CBC (INCL UDES DIFF/ PLT) MPV 11.6 fL 7.5-12 .5 normal Not Available [facility] [address], [address], 02/27/2025 22:28:51 02/27/20 25 02/27/2025 CBC (INCL UDES DIFF/ PLT) absolute neutrophils 6408 cells /uL 1500-7 800 normal Not Available [facility] [address], [address], 02/27/2025 22:28:51 02/27/20 25 02/27/2025 CBC (INCL UDES DIFF/ PLT) absolute lymphocytes 1833 cells /uL 850-39 00 normal Not Available [address], [address], 02/27/2025 22:28:51 02/27/20 25 02/27/2025 CBC (INCL UDES DIFF/ PLT) absolute monocytes 481 cells /uL 200-95 0 normal Not Available [address], [address], 02/27/2025 22:28:51 02/27/20 25 02/27/2025 CBC (INCL UDES DIFF/ PLT) absolute eosinophils 151 cells /uL 15-500 normal Not Available [address], [address], 02/27/2025 22:28:51 02/27/20 25 02/27/2025 CBC (INCL UDES DIFF/ PLT) absolute basophils 27 cells /uL 0-200 normal Not Available [facility] [address], [address], 02/27/2025 22:28:51 02/27/20 25 02/27/2025 CBC (INCL UDES DIFF/ PLT) neutrophils 72 % normal Not Available [address], [address], 02/27/2025 22:28:51 02/27/20 25 02/27/2025 CBC (INCL UDES DIFF/ PLT) lymphocytes 20.6 % normal Not Available [facility] [address], [address], 02/27/2025 22:28:51 02/27/20 25 02/27/2025 CBC (INCL UDES DIFF/ PLT) monocytes 5.4 % normal Not Available [address], [address], 02/27/2025 22:28:51 02/27/20 25 02/27/2025 CBC (INCL UDES DIFF/ PLT) eosinophils 1.7 % normal Not Available [address] [address] [place], [address], 02/27/2025 22:28:51 02/27/20 25 02/27/2025 CBC (INCL UDES DIFF/ PLT) basophils 0.3 % normal Not Available [address] [address] [place], [address], 02/27/2025 22:28:51 02/27/20 25 02/27/2025 HEPAT ITIS B SURFA CE ANTIG EN W/REF L CONFI RM hepatitis B surface antigen NON-RE ACTIVE non-re active normal For addit ional infor amy raphael, sabrina e refer to http: //[facility] n.que stdia gnost ics.c om/fa q/FAQ 202 (This link is being provi ded for infor matio nal/ educa jhonathan l purpo ses only. ) Not Available [address], [place], [address], 02/27/2025 22:28:52 02/27/20 25 02/27/2025 HEPAT ITIS [...] a test for HCV RNA (test code 93758 ) is sugge sted. For addit ional infor matio n pleas e refer to http: //[facility] n.que stdia gnost ics.c om/fa q/FAQ 22v1 (This link is being provi ded for infor matio nal/ educa jhonathan l purpo ses only. ) Not Available [facility] [address] [address], [place], [address], 02/27/2025 22:28:53 02/27/2002/27/2025 RUBEL LA AB (IGG) , IMMUN E [...] la virus . Not Available [facility] [address] [address], [place], [address], 02/27/2025 22:28:53 02/27/2002/27/2025 HIV 1/2 ANTIG EN/AN [...] state law prohi bits you from ramon van er discl osure of the infor matio n witho ut the speci fic writt en conse nt of the perso n to whom it perta ins, or as other casiano permi tted by law. A gener al autho ravinder ion for the relea se of medic al or other infor matio n is NOT suffi cient for this purpo se. For addit ional infor matio n pleas e refer to http: //[facility] godfrey stdia gnost ics.c om/fa q/FAQ 106 (This link is being provi ded for infor amy trujillo/ educa jhonathan l purpo ses only. ) The perfo rmanc e of this assay has not been clini solomon valid ated in patie nts less than 2 years old. Not Available [employer] [facility] [address] [place], [address], 02/27/2025 22:28:54 02/27/20 25 02/27/2025 RPR (DX) W/REF L TITER AND T. PALLI DUM AB, IA RPR (DX) w/refl titer and confirmatory testing NON-RE ACTIVE non-re active normal No labor atory evide nce of syphi lis. If recen t expos ure is suspe cted, submi t a new sampl e in 2-4 weeks . Not Available [employer] [address], [address], 02/27/2025 22:28:55 02/27/20 25 02/27/2025 ANTIB MAICOL [...] alloi mmuni zed pregn benjamin. Not Available [employer] [address], [address], 02/27/2025 22:28:56 02/27/20 25 02/27/2025 ABO GROUP AND RH TYPE ABO group O Not Available [employer] [address] [place], [address], 02/27/2025 22:28:57 02/27/20 25 02/27/2025 ABO GROUP AND RH TYPE Rh type RH(D) POSITI VE For addit ional infor sabrina roth e refer to http: //divina raphael.Que stDia gnost ics.c om/fa q/FAQ 111 (This link is being provi ded for infor matio nal/ educa jhonathan l purpo ses only. ) Not Available [facility] [address] [address] [address], [place], [address], 02/27/2025 22:28:57 02/27/20 25 02/27/2025 DRUG MONIT OR, PANEL 1, SCREE N, URINE amphetamines NEGATI VE NG/mL <500 See Note A See Note A Not Available [facility] [address] [address] [address], [place], [address], 02/27/2025 22:28:58 02/27/20 25 02/27/2025 DRUG MONIT OR, PANEL 1, SCREE N, URINE barbiturates NEGATI VE NG/mL <300 See Note A See Note A Not Available [facility] [address] [address] [address], [place], [address], 02/27/2025 22:28:58 02/27/20 25 02/27/2025 DRUG MONIT OR, PANEL 1, SCREE N, URINE benzodiazepi duane NEGATI VE NG/mL <100 See Note A See Note A Not Available [facility] [address] [address] [address], [place], [address], 02/27/2025 22:28:58 02/27/20 25 02/27/2025 DRUG MONIT OR, PANEL 1, SCREE N, URINE cocaine metabolite NEGATI VE NG/mL <150 See Note A See Note A Not Available [facility] [address] [address] [address], [place], [address], 02/27/2025 22:28:58 02/27/20 25 02/27/2025 DRUG MONIT OR, PANEL 1, SCREE N, URINE marijuana metabolite NEGATI VE NG/mL <20 See Note A See Note A Not Available [facility] [address] [address] [address], [place], [address], 02/27/2025 22:28:58 02/27/20 25 02/27/2025 DRUG MONIT OR, PANEL 1, SCREE N, URINE methadone metabolite NEGATI VE NG/mL <100 See Note A See Note A Not Available [address] [address] [address], [place], [address], 02/27/2025 22:28:58 02/27/20 25 02/27/2025 DRUG MONIT OR, PANEL 1, SCREE N, URINE opiates NEGATI VE NG/mL <100 See Note A See Note A Not Available [address] [address] [address], [place], [address], 02/27/2025 22:28:58 02/27/20 25 02/27/2025 DRUG MONIT OR, PANEL 1, SCREE N, URINE oxycodone NEGATI VE NG/mL <100 See Note A See Note A Not Available [address] [address], [place], [address], 02/27/2025 22:28:58 02/27/20 25 02/27/2025 DRUG MONIT OR, PANEL 1, SCREE N, URINE phencyclidin e NEGATI VE NG/mL <25 See Note A See Note A Not Available [address] [address] [address], [place], [address], 02/27/2025 22:28:58 02/27/20 25 02/27/2025 DRUG MONIT OR, PANEL 1, SCREE N, URINE creatinine 108.1 mg/dL > or = 20.0 Not Available [address] [address] [address], [place], [address], 02/27/2025 22:28:58 02/27/20 25 02/27/2025 DRUG MONIT OR, PANEL 1, SCREE N, URINE pH 7.7 4.5-9. 0 Not Available [address] [address] [address], [place], [address], 02/27/2025 22:28:58 02/27/20 25 02/27/2025 DRUG MONIT OR, PANEL 1, SCREE N, URINE oxidant NEGATI VE mcg/m L <200 Not Available [address] [address] [place], [address], 02/27/2025 22:28:58 02/27/20 25 02/27/2025 DRUG MONIT ORING TEMPL ATE notes and comments This drug testi ng is for medic al treat ment only. Jim sis was perfo rmed as non-f orens ic testi ng and these resul ts shoul d be used only by [facility] prov[facility] ders to rende r diagn osis or treat ment, or to monit or progr ess of medic al condi tions . Note A: The resul ts are presu mptiv e; based only on tripp caputo ds, and they have not been confi rmed by a defin itive harshal honeycutt. [facility] Provi ders needi ng Inter preta tion yanci tance , pleas e conta ct us at 1.877 .40.R XTOX (1.87 [phone] ) M-F, 8am to 10pm EST Not Available [facility] [address] [address] [address], [place], [address], 02/27/2025 22:28:59 02/27/2002/27/2025 CULTU RE, URINE , ROUTI NE culture, urine, routine SEE NOTE CULTU RE, URINE , ROUTI NE Micro Numbe r: [id number] Test Statu s: Final Speci men Sourc e: Urine Speci men Quali ty: Adequ ate Resul t: No Growt h Not Available [facility] [address] [address] [address], [place], [address], 02/27/2025 22:28:59 02/27/2003/08/2025 THINP REP TIS PAP (REFL ) HPV MRNA E6/E7 clinical information: normal Pregn ant Not Available [facility] [address] [address] [address], [place], [address], 03/08/2025 08:16:51 02/27/2003/08/2025 THINP REP TIS PAP (REFL ) HPV MRNA E6/E7 LMP: normal NONE GIVEN Not Available [address], [address], 03/08/2025 08:16:51 02/27/2003/08/2025 THINP REP TIS PAP (REFL ) HPV MRNA E6/E7 prev. Pap: normal NONE GIVEN Not Available [address], [address], 03/08/2025 08:16:51 02/27/2003/08/2025 THINP REP TIS PAP (REFL ) HPV MRNA E6/E7 prev. BX: normal NONE GIVEN Not Available [address], [address], 03/08/2025 08:16:51 02/27/2003/08/2025 THINP REP TIS PAP (REFL ) HPV MRNA E6/E7 source: normal Cervi x, Endoc ervix Not Available [address], [address], 03/08/2025 08:16:51 02/27/2003/08/2025 THINP REP TIS PAP (REFL ) HPV MRNA E6/E7 statement of adequacy: normal Satis facto ry for evalu ation . Endoc ervic al/tr ansfo rmati on zone compo nent prese nt. Not Available [address], [address], 03/08/2025 08:16:51 02/27/2003/08/2025 THINP REP TIS PAP (REFL ) HPV MRNA E6/E7 general categorizati on: abnormal Cytol ogy Resul ts: Epith elial Cell Abnor malit y Not Available [address], [address], 03/08/2025 08:16:51 02/27/2003/08/2025 THINP REP TIS PAP (REFL ) HPV MRNA E6/E7 interpretati on/result: abnormal Low Grade Squam ous Intra epith elial Lesio n (LSIL ) Not Available [address] [address] [place], [address], 03/08/2025 08:16:51 02/27/20 25 03/08/2025 THINP REP TIS PAP (REFL ) HPV MRNA E6/E7 comment: normal This Pap test has been evalu ated with compu ter yanci bruce techn ology . Sugge st clini rajiv corre latio n and follo w-up as clini solomon appro priat e Not Available [address] [address] [place], [address], 03/08/2025 08:16:51 02/27/20 25 03/08/2025 THINP REP TIS PAP (REFL ) HPV MRNA E6/E7 cytotechnolo gist: normal KMS, CT( CP) CT Scree pat locat ion: [address] [address] [place] [address] Not Available [address] [address] [place], [address], 03/08/2025 08:16:51 02/27/20 25 03/08/2025 THINP REP TIS PAP (REFL ) HPV MRNA E6/E7 pathologist: normal Alisha monique M.D., Board Certi fied in Anato jesús Patho logy and Cytop athol ogy. Phone : [phone] (elec troni c signa ture) Patho logis t Relea se Date/ Time: 03/06 09:25 AM Not Available [address] [address] [place], [address], 03/08/2025 08:16:51 02/27/20 25 03/08/2025 THINP REP [...] clini rajiv infor amy raphael. Not Available [address] [address] [place], [address], 03/08/2025 08:16:51 02/27/20 25 03/08/2025 HPV MRNA [...] infor sabrina roth e refer to http: //[facility] raphael.patience stdia gnost ics.c om/fa q/FAQ 129v1 (This link if provi ded for infor amy raphael/ inna monique purpo ses only. ) Not Available [facility] [address] [address], [place], [address], 03/08/2025 08:16:53 02/27/20 25 02/26/2025 CT + NG + TV, DNA, urine /swab Chlamydia negati ve Not Available [facility] ([facility]) [address] [place], [address], 02/25/2025 18:55:26 02/27/20 25 02/26/2025 CT + NG + TV, DNA, urine /swab Gonorrhea negati ve Not Available [facility] ([facility]) [address] [place], [address], 02/25/2025 18:55:26 02/27/20 25 02/26/2025 CT + NG + TV, DNA, urine /swab Trichomonas negati ve Not Available [facility] ([facility]) [address] [place], [address], 02/25/2025 18:55:26 07/02/20 25 07/02/2025 CBC WBC 11.1 x10 4.0-10 .5 high Not Available [facility] [address] [facility] [address], [place], [address], 07/02/2025 10:24:57 07/02/20 25 07/02/2025 CBC RBC 3.96 x10 3.50-5 .50 Not Available [facility] [address] [facility] [address], [place], [address], 07/02/2025 10:24:57 07/02/20 25 07/02/2025 CBC HGB 12.0 g/dL 12.0-1 6.0 Not Available [facility] [address] [facility] 1, [place], [address], 07/02/2025 10:24:57 07/02/2007/02/2025 CBC HCT 37.1 % 37.0-4 7.0 Not Available [facility] [address] [facility] 1, [place], [address], 07/02/2025 10:24:57 07/02/2007/02/2025 CBC MCV 93.8 fL 80.0-9 9.9 Not Available [facility] [address] [facility] 1, [place], [address], 07/02/2025 10:24:57 07/02/20 25 07/02/2025 CBC MCH 30.4 pg 27.0-3 2.0 Not Available [facility] [address] [facility] 1, [place], [address], 07/02/2025 10:24:57 07/02/20 25 07/02/2025 CBC MCHC 32.4 g/dL 32.0-3 6.0 Not Available [facility] [address] [facility] 1, [place], [address], 07/02/2025 10:24:57 07/02/2007/02/2025 CBC RDW 12.9 % 11.5-1 4.5 Not Available [facility] [address] [facility] 1, [place], [address], 07/02/2025 10:24:57 07/02/20 25 07/02/2025 CBC plt 227.7 x10 140.0- 451.0 Not Available [facility] [address] [facility] 1, [place], [address], 07/02/2025 10:24:57 07/02/20 25 07/02/2025 CBC lymphocytes % 15.5 % 20.0-5 0.0 low Not Available [facility] [address] [facility] 1, [place], [address], 07/02/2025 10:24:57 07/02/20 25 07/02/2025 CBC granulcytes % 78.3 % 30.0-7 0.0 high Not Available [facility] [address] [facility] 1, [place], [address], 07/02/2025 10:24:57 07/02/20 25 07/02/2025 CBC monocytes % 4.2 % 2.0-16 .0 Not Available [facility] [address] [facility] 1, [place], [address], 07/02/2025 10:24:57 07/02/20 25 07/02/2025 CBC granulcytes# 8.7 x10 Not Jenny ilable [facility] [address] [facility] [address], [place], [address], 07/02/2025 10:24:57 07/02/20 25 07/02/2025 CBC lymphocytes # 1.7 x10 Not Available [facility] [address] [facility] [address], [place], [address], 07/02/2025 10:24:57 07/02/20 25 07/02/2025 CBC monocytes # 0.5 x10 Not Avai lable [facility] [address] [facility] [address], [place], [address], 07/02/2025 10:24:57 07/02/20 25 07/02/2025 GLUCO SE SCREE N glucose screen 135.0 mg/dL Not Available [facility] [address] [facility] [address], [place], [address], 07/02/2025 10:30:30 07/11/20 25 07/11/2025 GLUCO SE SCREE N glucose screen 133.0 mg/dL Not Available [facility] [address] [facility] [address], [place], [address], 07/11/2025 10:37:03 08/27/20 25 09/02/2025 CULTU RE, GROUP B STREP WITH SUSCE PTIBI LITY culture, group B strep with susceptibili ty SEE NOTE abnormal CULTU RE, GROUP B STREP WITH SUSCE PTIBI LITY Micro Numbe r: [id number] Test Statu s: Final Speci men [...] See Thera py Comme nts Not Available [facility] [address] [place], [address], 09/02/2025 14:26:34 09/06/2009/06/2025 CBC WBC 9.9 x10 4.0-10 .5 Not Available [facility] [address] [facility] 1, [place], [address], 09/06/2025 09:32:26 09/06/20 25 09/06/2025 CBC RBC 4.29 x10 3.50-5 .50 Not Available [facility] [address] [facility], [place], [address], 09/06/2025 09:32:26 09/06/20 25 09/06/2025 CBC HGB 12.6 g/dL 12.0-1 6.0 Not Available [facility] [address] [facility] 1, [place], [address], 09/06/2025 09:32:26 09/06/20 25 09/06/2025 CBC HCT 39.4 % 37.0-4 7.0 Not Available [facility] [address] [facility] 1, [place], [address], 09/06/2025 09:32:26 09/06/20 25 09/06/2025 CBC MCV 91.9 fL 80.0-9 9.9 Not Available [facility] [address] [facility] 1, [place], [address], 09/06/2025 09:32:26 09/06/20 25 09/06/2025 CBC MCH 29.3 pg 27.0-3 2.0 Not Available [facility] [address] [facility] 1, [place], [address], 09/06/2025 09:32:26 09/06/20 25 09/06/2025 CBC MCHC 31.9 g/dL 32.0-3 6.0 low Not Available [facility] [address] [facility] 1, [place], [address], 09/06/2025 09:32:26 09/06/20 25 09/06/2025 CBC RDW 13.2 % 11.5-1 4.5 Not Available [facility] [address] [facility] 1, [place], [address], 09/06/2025 09:32:26 09/06/20 25 09/06/2025 CBC plt 216.3 x10 140.0- 451.0 Not Available [facility] [address] [facility] Qu[facility] 1, [place], [address], 09/06/2025 09:32:26 09/06/20 25 09/06/2025 CBC lymphocytes % 21.4 % 20.0-5 0.0 Not Available [facility] [address] [facility] 1, [place], [address], 09/06/2025 09:32:26 09/06/20 25 09/06/2025 CBC granulcytes % 70.6 % 30.0-7 0.0 high Not Available [facility] [address] [facility], [place], [address], 09/06/2025 09:32:26 09/06/2009/06/2025 CBC monocytes % 5.8 % 2.0-16 .0 Not Available [facility] [address], [place], [address], 09/06/2025 09:32:26 09/06/2009/06/2025 CBC granulcytes# 7.0 x10 Not Jenny ilable [facility] [address] [facility] [address] [facility], [place], [address], 09/06/2025 09:32:26 09/06/2009/06/2025 CBC lymphocytes # 2.1 x10 Not Available [facility] [address] [facility] [address] [facility], [place], [address], 09/06/2025 09:32:26 09/06/2009/06/2025 CBC monocytes # 0.6 x10 Not Avai lable [facility] [address] [facility], [place], [address], 09/06/2025 09:32:26 09/06/2009/06/2025 CMP (FEMA LE) glucose 84.0 mg/dL 60.0-9 9.0 Not Available [facility] [address] [facility] [address] [facility], [place], [address], 09/06/2025 09:46:52 09/06/2009/06/2025 CMP (FEMA LE) BUN (blood urea nitrogen) 5.0 mg/dL 10.0-2 6.0 low Not Available [facility] [address] [facility] 1, [place], [address], 09/06/2025 09:46:52 09/06/20 25 09/06/2025 CMP (FEMA LE) creatinine (serum) 0.5 mg/dL 0.4-1. 5 Not Available [facility] [address] [facility], [place], [address], 09/06/2025 09:46:52 09/06/20 25 09/06/2025 CMP (FEMA LE) BUN/creatini ne ratio 10.00 ratio Not Available [facility] [address] [facility], [place], [address], 09/06/2025 09:46:52 09/06/2009/06/2025 CMP (FEMA LE) eGFR calculated 154.0 Not Available [facility] [address] [facility], [place], [address], 09/06/2025 09:46:52 09/06/2009/06/2025 CMP (FEMA LE) total protein 7.0 g/dL 6.0-8. 5 Not Available [facility] [address] [facility] 1, [place], [address], 09/06/2025 09:46:52 09/06/2009/06/2025 CMP (FEMA LE) total bilirubin 0.6 mg/dL 0.2-1. 3 Not Available [facility] [address] [facility] 1, [place], [address], 09/06/2025 09:46:52 09/06/2009/06/2025 CMP (FEMA LE) albumin 4.1 g/dL 3.5-5. 5 Not Available [facility] [address] [facility], [place], [address], 09/06/2025 09:46:52 09/06/2009/06/2025 CMP (FEMA LE) globulin 2.9 calc Not Available [facility] [place] [place] [facility] [address] [facility] 1, [place], [address], 09/06/2025 09:46:52 09/06/2009/06/2025 CMP (FEMA LE) AST (SGOT) 33.0 U/L 0.0-46 .0 Not Available [facility] [address] [facility] 1, [place], [address], 09/06/2025 09:46:52 09/06/2009/06/2025 CMP (FEMA LE) altv (SGPT) 22.0 U/L 13.0-6 9.0 normal Not Available [facility] [address] [facility] [address], [place], [address], 09/06/2025 09:46:52 09/06/2009/06/2025 CMP (FEMA LE) A/G ratio 1.4 ratio Not Available [facility] [address] [facility] [address], [place], [address], 09/06/2025 09:46:52 09/06/2009/06/2025 CMP (FEMA LE) ALP phos 160.0 U/L 30.0-1 40.0 abnormal Not Available [facility] [address] [facility] 1, [place], [address], 09/06/2025 09:46:52 09/06/2009/06/2025 CMP (FEMA LE) calcium 9.0 mg/dL 8.4-10 .5 Not Available [facility] [address] [facility] 1, [place], [address], 09/06/2025 09:46:52 09/06/2009/06/2025 CMP (FEMA LE) sodium 137.0 mmol/ L 136.0- 145.0 Not Available [facility] [address] [facility] 1, [place], [address], 09/06/2025 09:46:52 09/06/20 25 09/06/2025 CMP (FEMA LE) potassium 3.4 mmol/ L 3.5-5. 1 low Not Available [facility] [address] [facility] 1, [place], [address], 09/06/2025 09:46:52 09/06/20 25 09/06/2025 CMP (FEMA LE) chloride 105.0 mmol/ L 98.0-1 10.0 normal Not Available [facility] [address] [facility], [place], [address], 09/06/2025 09:46:52 09/06/2009/06/2025 CMP (FEMA LE) C02 24.0 mmol/ L 22.0-3 1.0 Not Available [facility] [address] [facility], [place], [address], 09/06/2025 09:46:52 09/06/20 25 09/06/2025 CMP (FEMA LE) anion gap 8.0 calc Not Available [facility] [address] [facility], [place], [address], 09/06/2025 09:46:52 09/06/20 25 09/06/2025 CMP (FEMA LE) osmolality 279.9 calc Not Available [facility] [address] [facility], [place], [address], 09/06/2025 09:46:52 09/06/20 25 09/06/2025 LIPID PROFI LE (FEMA LE) cholesterol 195.0 mg/dL 0.0-20 0.0 Not Available [facility] [address] [facility] 1, [place], [address], 09/06/2025 09:46:55 09/06/20 25 09/06/2025 LIPID PROFI LE (FEMA LE) trig 114.0 mg/dL 0.0-15 0.0 Not Available [facility] [address] [facility] 1, [place], [address], 09/06/2025 09:46:55 09/06/20 25 09/06/2025 LIPID PROFI LE (FEMA LE) HDL - direct 74.0 mg/dL >40.0 Not Available [facility] [address] [facility], [place], [address], 09/06/2025 09:46:55 09/06/20 25 09/06/2025 LIPID PROFI LE (FEMA LE) VLDL - direct 22.8 mg/dL Not Available [facility] [address] [facility] Qu[facility]ones [facility] 1, [place], [address], 09/06/2025 09:46:55 09/06/20 25 09/06/2025 LIPID PROFI LE (FEMA LE) LDL - direct 98.2 mg/dL 0.0-13 0.0 Not Available [facility] [address] [facility], [place], [address], 09/06/2025 09:46:55 09/06/2009/06/2025 TSH TSH 1.69 uIU/m L 0.49-3 .82 Not Available [facility] [address] [facility] Nuria [facility], [place], [address], 09/06/2025 10:02:31 09/06/2009/06/2025 HBA1C hemaglobin A1C 5.4 4.2-6. 5 Not Available [facility] [address] [facility] Nuria [facility] 1, [place], [address], 09/06/2025 12:51:07 02/19/20 25 02/12/2025 US, obste tric, 1st trime ster No observ ation record ed. [email or web address] Not Available 02/19 09:09:34 04/25/20 25 04/18/2025 US, obste tric, follo w-up No observ ation record ed. [email or web address] [facility] [address] [place], [address], 04/29/2025 09:24:34 05/11/20 25 05/07/2025 US, obste tric, 2nd trime ster No observ ation record ed. [facility] [address] [place], [address], 05/13/2025 17:57:21 07/05/20 25 07/02/2025 imagi ng/di agnos tic resul t No observ ation record ed. [facility] [address] [place], [address], 07/09/2025 10:35:54 Result Notes None recorded. Problems Name Problem SNOMED Code Status Onset Date Resolution Date Notes Provider Name and Address Organization Details Recorded Time Rheumatoid arthritis 79115930 Active 2022 KERWIN roper [facility] 5 14:16:25 Pain of knee region 4365118338 Completed 202301/24/2025 KERWIN roper [facility] 5 14:16:23 Family history of diabetes mellitus 817427810 Active 2023 KERWIN roper [facility] 5 14:16:18 Normal 47496961 Active 2024 ROXI Vang [facility] 5 10:22:35 Normal 87566177 Active 2024 ROXI LANDISWAHailey Vang [facility] 5 10:22:35 Placenta previa partialis 98844572 Active 2024 Alvaro Angelo MD [address] [place], [address], [facility], LRemigioLKeely 5 02:46:26 Low-lying placenta 714934465 Active 2024 Alvaro Angelo MD [address] [place], [address], [facility], LRemigioLKeely 11:36:47 Problem Notes None recorded. Procedures Surgical History Date Name Laterality Status Provider Name and Address Organization Details Recorded Time 02/27/20 25 Date of Last Pap Smear completed [facility]LRem[facility]ioCR[facility]io 09/02/2025 18:39:21 02/27/20 25 liquid based cervical cytology screening completed [facility], LRemigioLRemigioCRemigio 09/02/2025 18:39:54 01/31/20 24 colposcopy completed [facility] 01/24/2025 14:17:49 01/31/20 24 hysteroscopy completed [facility], L.LRemigioCRemigio 01/24/2025 14:18:46 arthroscopy of left knee joint completed [facility], L.LRemigioCRemigio 01/24/2025 14:17:01 cholecystectomy completed [facility], L.LRemigioCRemigio 01/24/2025 14:17:33 Imaging Results None recorded. Procedure Notes None recorded. Medical Equipment None Reported. Allergies Allergen ID Allergen Name Allergen Category Reaction Reaction Severity Criticality Documentation Date Start Date Code Code System Note Provider Name and Address Organization Details Recorded Time 77354 Bactrim medicatio n hives moderate Not available 05/21/2023 59042 9 RxNorm TREJOSE RAUL Vang [facility] LRemigioLRemigioCRemigio 5 15:30:03 94126 Product containin g penicilli n (product) medicatio n hives moderate Not available 05/21/2023 10001 8001 SNOMED TREBA NEUSCHWAN KAVITHA [facility] 5 15:30:03 26731 Augmentin medicatio n hives moderate Not available 01/24/2025 43951 2 RxNorm KERWIN DUNAWAY [facility] 5 14:19:18 69086 Celebrex medicatio n other moderate Not available 01/24/2025 60542 7 RxNorm TREBA NEUSCHWAN KAVITHA [facility] 5 15:30:03 90473 Substance with sulfonami de structure and antibacte rial mechanism of action (substanc e) medicatio n hives moderate Not available 04/18/2025 99820 8003 SNOMED TREBA NEUSCHWAN KAVITHA [facility] 5 15:30:03 79247 amoxicill in / clavulana te medicatio n hives Not available high 09/06/20252022 21135 RxNorm Yessy ates PCN and amoxi cilli n fine Not Available anna - External Data Service - prod 5 07:58:34 61262 celecoxib medicatio n Not available Not available high 09/06/20252022 74420 7 RxNorm Not Available anna - External Data Service - prod 5 07:58:34 68342 amoxicill in medicatio n Not available Not available low 09/27/20252023 723 RxNorm Not Available anna - External Data Service - prod 5 13:40:54 65738 clavulani c acid Not available Not available Not available low 09/27/20252023 61455 RxNorm Not Available anna - External Data Service - prod 5 13:40:54 40526 sulfameth oxazole medicatio n Not available Not available Not available 09/27/20252023 10490 RxNorm Not Available anna - External Data Service - prod 13:40:54 80471 trimethop rim medicatio n Not available Not available Not available 09/27/20252023 76574 RxNorm Not Available abbott - External Data Service - prod 13:40:54 Medications Name Sig Start Date Stop Date [...] Updated DateTime 5 170.18 cm 38.2 kg/m2 837731. 24 g 98 % 80 /min 18 /min 97.7 [degF] 122/76 mm[Hg] ROXI SHEARER [facility] 5 11:04:11 Social History Question Answer Notes LastModified by Organizat ion Details LastModified Time Tobacco Smoking Status Former Smoker ANTONIO roper [facility] 01/24/2023 10:09:31 Are You Blind Or Do You Have Difficulty Seeing? No Information not available 01/24/2025 Are You Deaf Or Do You Have Serious Difficulty Hearing? No [email or web address] Information not available 01/24/2023 When Did You Quit Smoking? 1-5yearssinc elastcigaret te [email or web address] Information not available 01/24/2023 Do You Work In Healthcare? No Information not available 01/24/2025 What Was The Date Of Your Most Recent Tobacco Screening? 03/26/2025 [email or web address] Information not available 03/26/2025 What Is Your Relationship Status? Information not available 01/24/2025 Have You Recently Traveled Abroad? No [email or web address] Information not available 01/24/2023 Do You Have Difficulty Walking Or Climbing Stairs? No [email or web address] Information not available 01/24/2023 Sex: Unknown Functional [...] independently without assistance or assistive devices? YESWOREST [email or web address] Information not available 01/24/2023 Do you have difficulty doing errands alone? No [email or web address] Information not available 01/24/2023 Are you able to care for yourself independently? 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 No [email or web address] Information not available 01/24/2023 Do you or have you ever used e-cigarettes or vape? Former user of electronic cigarettes Information not available 01/24/2025 Mental Status Question Answer Note LastModified by Organization D etails LastModified Time Do you have difficulty concentrating, remembering or making decisions? No [email or web address] Information no t available 01/24/2023 Family History Relationship Description Onset Age of this Age Resolved Age Notes LastModified by Organization Details LastModified Time Father Diabetes mellitus [email or web address] Not available 2023 09:43:45 Paternal Grandmother Malignant neoplasm of ovary [email or web address] Not available 10:54:13 Notes:Cancer Maternal Grandf ather: Brain Cancer Paternal Grandmother: Ovarian Cancer Medical History Condition Response Coronary Artery Disease N Gout N Other N Blood Diseases N Kidney Stones N Hyperthyroidism N Breast Cancer N Blood Transfusion N Hypothyroidism N Lung Disease N COPD N Depression N Developmental or Behavioral Disorders N Defects [...] Recorded Time IPV 09/28/2000 completed Susan roper [facility] 10/09/2024 09:35:10 MMR 04/11/1996 completed Susan roper [facility] 10/09/2024 09:35:10 MMR 09/28/2000 completed Susan roper [facility] 10/09/2024 09:35:10 Tdap 11/17/2010 completed Susan roper [facility] 10/09/2024 09:35:10 Tdap 02/20/2015 completed Susan roper [facility] 10/09/2024 09:35:10 Hep B, unspecified formulation 1995 completed Susan roper [facility] 10/09/2024 09:35:10 Hep B, unspecified formulation 02/28/1996 completed Susan roper [facility] 10/09/2024 09:35:10 Hep B, unspecified formulation 1995 completed Susan roper [facility] 10/09/2024 09:35:10 OPV, trivalent 1995 completed Susan roper [facility] 10/09/2024 09:35:10 OPV, trivalent 02/28/1996 completed Susan Wilson null, [facility] 10/09/2024 09:35:10 OPV, trivalent 1995 completed Susan Wilson null, [facility] 10/09/2024 09:35:10 DTP-Hib 11/29/1996 completed Susan Wilson null, [facility] 10/09/2024 09:35:10 DTP-Hib 1995 completed Susan Wilson null, [facility] 10/09/2024 09:35:10 DTP-Hib 02/28/1996 completed Susan Wilson null, [facility] 10/09/2024 09:35:10 DTP-Hib 1995 completed Susan Wilson null, [facility] 10/09/2024 09:35:10 DTaP 09/28/2000 completed Susan Wilson null, [facility] 10/09/2024 09:35:10 Past Encounters Encounter ID Performer Location Encounter Start Date Encounter Closed Date Diagnosis/Indication Diagnosis SNOMED-CT Code Diagnosis ICD10 Code Diagnosis IMO Codes Diagnosis Note [id number] Alvaro Angelo MD [facility] ([facility]) [address] [place] [address] 08/27/2025 10:35:57 08/27/2025 11:34:41 Normal 13557770 Z34.83 Gestation period, 36 weeks 46061615 Z3A.36 5589444 [id number] Alvaro Angelo MD [facility] ([facility]) [address] [place] [address] 09/03/2025 10:32:59 09/03/2025 11:48:15 Multigravida 891510078 Z34.83 73045829 Gestation period, 37 weeks 51546894 Z3A.37 2682627 [id number] Giovani Yu MD [facility] ([facility]) [address] [place], [place] [address] 09/06/2025 07:58:00 09/11/2025 03:58:55 Adult health examination 556430488 Z00.00 [id number] LISSETH SETHI [facility]) [address] [place] [address] 5 09/06/2025 07:58:35 09/11/2025 03:58:55 Physical examination 4063462 Z00.00 [id number] Alvaro Angelo MD [facility]) [address] [place] [address] 5 09/10/2025 13:45:56 09/10/2025 14:47:57 Multigravida 390785098 Z34.83 22953115 Gestation period, 38 weeks 08209999 Z3A.38 7738724 [id number] Alvaro Angelo MD [facility]) [address] [place], [place] [address] 09/17/2025 10:35:44 09/17/2025 11:14:06 Normal in multigravida 0683929155 36853 Z34.80 82374099 Gestation period, 39 weeks 19489306 Z3A.39 [id number] Alvaro Angelo MD [facility]) [address] [place] [address] 5 09/24/2025 10:36:35 09/24/2025 11:31:14 Normal 61867881 Z34.83 34001481 Gestation period, 40 weeks 59070810 Z3A.40 7049118 Health Concerns Section Related Observation LastModified by Organization Detai ls LastModified Time None Recorded Concern Status LastModified by Organization Details LastModified Time None Recorded Payers Encounter Date Sequence Insurance Name Policy Number Policy Fierro Covered Member ID Fierro Member ID Guarantor Name 09/24/2025 1 LANETTE (PPO) [id number] 3 Jeffy Zimmerman [id number] Jeffy Zimmerman Notes Date Note Type [...] useROS as noted in the HPI Alvaro Aneglo MD [address] [place] [address], [phone], [facility] 09/24/2025 11:31:04 OBGyn Episode Ob Episode Information Episode Created Date Number of Fetuses Patient Bloodtype Patient rh Status Prepregnancy Weight lbs Domestic Partner Domestic Partner Phone Father Name Cutter Barrel Drum Status 01/25/20 25 1 O Positive Damián [...] Resolution Snomed Code Not e Normal 02/25/2025 [id number] Merrill Calculation Initial Merrill Date Initial Exam [...] Weight in lbs Pre/Post Dialysis Refused Weight 227.877598601121 BP Diastolic BP Location Tested BP Systolic [...] Weight in lbs Pre/Post Dialysis Refused Weight 221.078065285426 BP Diastolic BP Location Tested BP Systolic [...] Weight in lbs Pre/Post Dialysis Refused Weight 221.780126443625 BP Diastolic BP Location Tested BP Systolic [...] Weight in lbs Pre/Post Dialysis Refused Weight 225.044134126447 BP Diastolic BP Location Tested BP Systolic [...] Weight in lbs Pre/Post Dialysis Refused Weight 230.634075746247 BP Diastolic BP Location Tested BP Systolic BP Type 62 L arm 106 Fetus Heart Rate Present A 148 Present Fetus Movement A Yes Comments heartburn Flowsheet Date 06/18/2025 Sierra Score Blood Edema Fundus Height Fundus Units Glucose Ketones Leukocytes Nitrite Labor Signs Protein Cervic Dilation Cervic Effacement Cervic Station Type Weight in lbs Pre/Post Dialysis Refused Weight 229.3443601753 BP Diastolic BP Location Tested BP Systolic [...] Weight in lbs Pre/Post Dialysis Refused Weight 234.017195143150 BP Diastolic BP Location Tested BP Systolic [...] Weight in lbs Pre/Post Dialysis Refused Weight 232.124352373355 BP Diastolic BP Location Tested BP Systolic [...] Weight in lbs Pre/Post Dialysis Refused Weight 236.665937990053 BP Diastolic BP Location Tested BP Systolic BP Type 76 120 Fetus Heart Rate Present A 144 Present Fetus Movement A Yes Comments mild swelling, heartburn int ermittent Flowsheet Date 08/13/2025 Sierra Score Blood Edema Fundus Height Fundus Units Glucose Ketones Leukocytes Nitrite Labor Signs Protein Cervic Dilation Cervic Effacement Cervic Station 34 cm none trace [place] neg Type Weight in lbs Pre/Post Dialysis Refused Weight 239.166030661774 BP Diastolic BP Location Tested BP Systolic [...] Weight in lbs Pre/Post Dialysis Refused Weight 241.220286374797 BP Diastolic BP Location Tested BP Systolic [...] Cervic Effacement Cervic Station none none Negative [place] neg 2cm 70% -3 Type Weight in lbs Pre/Post Dialysis Refused Weight 241.332636328476 BP Diastolic BP Location Tested BP Systolic [...] Weight in lbs Pre/Post Dialysis Refused Weight 243.786103629329 BP Diastolic BP Location Tested BP Systolic BP Type 70 120 Fetus Heart Rate Present Fetus Movement Comments Flowsheet Date 09/10/2025 Sierra Score Blood Edema Fundus Height Fundus Units Glucose Ketones Leukocytes Nitrite Labor Signs Protein Cervic Dilation Cervic Effacement Cervic Station none trace Negative [place] neg 2cm 70% -3 Type Weight in lbs Pre/Post Dialysis Refused Weight 243.692472580423 BP Diastolic BP Location Tested BP Systolic [...] Weight in lbs Pre/Post Dialysis Refused Weight 242.057417513879 BP Diastolic BP Location Tested BP Systolic BP Type 70 122 Fetus Heart Rate Present A 164 Present Fetus Movement A Yes Comments low back pain, vaginal press ure, swelling in hands/feet Flowsheet Date 09/24/2025 Sierra Score Blood Edema Fundus Height Fundus Units Glucose Ketones Leukocytes Nitrite Labor Signs Protein Cervic Dilation Cervic Effacement Cervic Station none 1+ Negative [place] trace 3cm 70% -4 Type Weight in lbs Pre/Post Dialysis Refused Weight 244.070083812324 BP Diastolic BP Location Tested BP Systolic [...] Weight in lbs Pre/Post Dialysis Refused Weight 248.077484297211 BP Diastolic BP Location Tested BP Systolic [...] Estim ated Date of Delivery false Thalassemia (Sinhala, Slovak, Mediterranean, Or Background): MCV < 80 false Neural Tube Defect (Meningomyelocele, Spina Bifi da, Or Anencephaly) false Congenital Heart Defect false Down Syndrome false Maco-Sachs (eg, Caodaism, Cajun, Kazakh-Wynot) f alse Dustin Disease false Sickle Cell Disease Or Trait () false Hemophilia Or Other Blood Disorders false Muscular Dystrophy false Cystic Fibrosis false Wilkes's Chorea false Intellectual Disability/Autism false If Yes, [...]
--- OUTSIDE RECORDS SUMMARY | 2025-09-30 23:39 | XMS_ITS | Continuity of Care Document ---
Author Organization [facility] Fabio Myers [facility] [place], [place], [facility] ([facility]) Address [address] [place] [address] Assessment No assessment recorded. Plan of Treatment [...] Abnormal Flag Note LastModifiedBy Organization Detail LastModifiedTime 02/27/20 25 02/27/2025 URINA LYSIS , COMPL ETE color YELLOW yellow normal Not Available [facility] [address] [place], [address], 02/27/2025 22:28:50 02/27/20 25 02/27/2025 URINA LYSIS , COMPL ETE appearance CLEAR clear normal Not Available [facility] [address] [place], [address], 02/27/2025 22:28:50 02/27/20 25 02/27/2025 URINA LYSIS , COMPL ETE specific gravity 1.012 1.001- 1.035 normal Not Available [facility] [address] [place], [address], 02/27/2025 22:28:50 02/27/20 25 02/27/2025 URINA LYSIS , COMPL ETE pH 7.5 5.0-8. 0 normal Not Available [address], [address], 02/27/2025 22:28:50 02/27/20 25 02/27/2025 URINA LYSIS , COMPL ETE glucose NEGATI VE negati ve normal Not Available [address], [address], 02/27/2025 22:28:50 02/27/20 25 02/27/2025 URINA LYSIS , COMPL ETE bilirubin NEGATI VE negati ve normal Not Available [address], [address], 02/27/2025 22:28:50 02/27/20 25 02/27/2025 URINA LYSIS , COMPL ETE ketones NEGATI VE negati ve normal Not Available [address], [address], 02/27/2025 22:28:50 02/27/20 25 02/27/2025 URINA LYSIS , COMPL ETE occult blood NEGATI VE negati ve normal Not Available [facility] [address], [address], 02/27/2025 22:28:50 02/27/20 25 02/27/2025 URINA LYSIS , COMPL ETE protein NEGATI VE negati ve normal Not Available [facility] [address], [address], 02/27/2025 22:28:50 02/27/20 25 02/27/2025 URINA LYSIS , COMPL ETE nitrite NEGATI VE negati ve normal Not Available [facility] [address], [address], 02/27/2025 22:28:50 02/27/20 25 02/27/2025 URINA LYSIS , COMPL ETE leukocyte esterase TRACE negati ve abnormal Not Available [address], [address], 02/27/2025 22:28:50 02/27/20 25 02/27/2025 URINA LYSIS , COMPL ETE WBC NONE SEEN /hpf < or = 5 normal Not Available [address], [address], 02/27/2025 22:28:50 02/27/20 25 02/27/2025 URINA LYSIS , COMPL ETE RBC NONE SEEN /hpf < or = 2 normal Not Available [address], [address], 02/27/2025 22:28:50 02/27/20 25 02/27/2025 URINA LYSIS , COMPL ETE squamous epithelial cells 6-10 /hpf < or = 5 abnormal Not Available [address], [address], 02/27/2025 22:28:50 02/27/20 25 02/27/2025 URINA LYSIS , COMPL ETE bacteria NONE SEEN /hpf none seen normal Not Available [address], [address], 02/27/2025 22:28:50 02/27/20 25 02/27/2025 URINA LYSIS , COMPL ETE hyaline cast NONE SEEN /lpf none seen normal Not Available [address], [address], 02/27/2025 22:28:50 02/27/20 25 02/27/2025 URINA LYSIS , COMPL ETE note This urine was jim zed for the prese nce of WBC, RBC, bacte terry, casts , and other forme d eleme nts. Only those eleme nts seen were repor bruce. Not Available [address], [address], 02/27/2025 22:28:50 02/27/20 25 02/27/2025 CBC (INCL UDES DIFF/ PLT) white blood cell count 8.9 thous and/u L 3.8-10 .8 normal Not Available [address], [address], 02/27/2025 22:28:51 02/27/20 25 02/27/2025 CBC (INCL UDES DIFF/ PLT) red blood cell count 4.42 erick on/uL 3.80-5 .10 normal Not Available [address], [address], 02/27/2025 22:28:51 02/27/20 25 02/27/2025 CBC (INCL UDES DIFF/ PLT) hemoglobin 13.2 g/dL 11.7-1 5.5 normal Not Available [address], [address], 02/27/2025 22:28:51 02/27/20 25 02/27/2025 CBC (INCL UDES DIFF/ PLT) hematocrit 41.4 % 35.0-4 5.0 normal Not Available [address], [address], 02/27/2025 22:28:51 02/27/20 25 02/27/2025 CBC (INCL UDES DIFF/ PLT) MCV 93.7 fL 80.0-1 00.0 normal Not Available [address], [address], 02/27/2025 22:28:51 02/27/20 25 02/27/2025 CBC (INCL UDES DIFF/ PLT) MCH 29.9 pg 27.0-3 3.0 normal Not Available [facility] [address], [address], 02/27/2025 22:28:51 02/27/20 25 02/27/2025 CBC (INCL UDES DIFF/ PLT) MCHC 31.9 g/dL 32.0-3 6.0 low For adult s, a sligh t decre ase in the calcu lated MCHC value (in the range of 30 to 32 g/dL) is most likel y not clini solomon signi ficbienvenido t; eliana er, it shoul d be inter prete d with cauti on in corre lat n with other red cell mariana eters and the patie nt's clini rajiv condi tion. Not Available [facility] [address], [address], 02/27/2025 22:28:51 02/27/20 25 02/27/2025 CBC (INCL UDES DIFF/ PLT) RDW 12.5 % 11.0-1 5.0 normal Not Available [facility] [address], [address], 02/27/2025 22:28:51 02/27/20 25 02/27/2025 CBC (INCL UDES DIFF/ PLT) platelet count 294 thous and/u L 140-40 0 normal Not Available [facility] [address], [address], 02/27/2025 22:28:51 02/27/20 25 02/27/2025 CBC (INCL UDES DIFF/ PLT) MPV 11.6 fL 7.5-12 .5 normal Not Available [facility] [address], [address], 02/27/2025 22:28:51 02/27/20 25 02/27/2025 CBC (INCL UDES DIFF/ PLT) absolute neutrophils 6408 cells /uL 1500-7 800 normal Not Available [facility] [address], [address], 02/27/2025 22:28:51 02/27/20 25 02/27/2025 CBC (INCL UDES DIFF/ PLT) absolute lymphocytes 1833 cells /uL 850-39 00 normal Not Available [address], [address], 02/27/2025 22:28:51 02/27/20 25 02/27/2025 CBC (INCL UDES DIFF/ PLT) absolute monocytes 481 cells /uL 200-95 0 normal Not Available [address], [address], 02/27/2025 22:28:51 02/27/20 25 02/27/2025 CBC (INCL UDES DIFF/ PLT) absolute eosinophils 151 cells /uL 15-500 normal Not Available [address], [address], 02/27/2025 22:28:51 02/27/20 25 02/27/2025 CBC (INCL UDES DIFF/ PLT) absolute basophils 27 cells /uL 0-200 normal Not Available [address], [address], 02/27/2025 22:28:51 02/27/20 25 02/27/2025 CBC (INCL UDES DIFF/ PLT) neutrophils 72 % normal Not Available [address], [address], 02/27/2025 22:28:51 02/27/20 25 02/27/2025 CBC (INCL UDES DIFF/ PLT) lymphocytes 20.6 % normal Not Available [address], [address], 02/27/2025 22:28:51 02/27/20 25 02/27/2025 CBC (INCL UDES DIFF/ PLT) monocytes 5.4 % normal Not Available [address], [address], 02/27/2025 22:28:51 02/27/20 25 02/27/2025 CBC (INCL UDES DIFF/ PLT) eosinophils 1.7 % normal Not Available [address] [address] [place], [address], 02/27/2025 22:28:51 02/27/20 25 02/27/2025 CBC (INCL UDES DIFF/ PLT) basophils 0.3 % normal Not Available [facility] [address] [place], [address], 02/27/2025 22:28:51 02/27/20 25 02/27/2025 HEPAT ITIS B SURFA CE ANTIG EN W/REF L CONFI RM hepatitis B surface antigen NON-RE ACTIVE non-re active normal For addit ional infor amy raphael, sabrina e refer to http: //[facility] hospital[facility]odd raphael.que stdia gnost ics.c om/fa q/FAQ 202 (This link is being provi ded for infor matio nal/ educa jhonathan l purpo ses only. ) Not Available [facility] [address], [address], 02/27/2025 22:28:52 02/27/20 25 02/27/2025 HEPAT ITIS [...] a test for HCV RNA (test code 64997 ) is sugge sted. For addit ional infor amy raphael pleas e refer to http: //[facility] n.que stdia gnost ics.c om/fa q/FAQ 22v1 (This link is being provi ded for infor matio nal/ educa jhonathan l purpo ses only. ) Not Available [facility] [address] [address] [place], [address], 02/27/2025 22:28:53 02/27/20 25 02/27/2025 RUBEL LA [...] with rubel la virus . Not Available [facility] [address], [place], [address], 02/27/2025 22:28:53 02/27/2002/27/2025 HIV 1/2 ANTIG EN/AN [...] matio n pleas e refer to http: //divina godfrey stdia gnost ics.c om/fa q/FAQ 106 (This link is being provi ded for infor matio nal/ educa jhonathan l purpo ses only. ) The perfo rmanc e of this assay has not been clini solomon valid ated in patie nts less than 2 years old. Not Available [address] [address] [place], [address], 02/27/2025 22:28:54 02/27/20 25 02/27/2025 RPR (DX) W/REF L TITER AND T. PALLI DUM AB, IA RPR (DX) w/refl titer and confirmatory testing NON-RE ACTIVE non-re active normal No labor atory evide nce of syphi lis. If recen t expos ure is suspe cted, submi t a new sampl e in 2-4 weeks . Not Available [facility] [address] [place], [address], 02/27/2025 22:28:55 02/27/20 25 02/27/2025 ANTIB MAICOL [...] alloi mmuni zed pregn benjamin. Not Available [address] [place], [address], 02/27/2025 22:28:56 02/27/20 25 02/27/2025 ABO GROUP AND RH TYPE ABO group O Not Available [facility] [address] [address] [place], [address], 02/27/2025 22:28:57 02/27/20 25 02/27/2025 ABO GROUP AND RH TYPE Rh type RH(D) POSITI VE For addit ional infor sabrina roth e refer to http: //[facility] lesterQue stDia gnost ics.c om/fa q/FAQ 111 (This link is being provi ded for infor amy trujillo/ educcatracho ring l purpo ses only. ) Not Available [facility] [address], [place], [address], 02/27/2025 22:28:57 02/27/20 25 02/27/2025 DRUG MONIT OR, PANEL 1, SCREE N, URINE amphetamines NEGATI VE NG/mL <500 See Note A See Note A Not Available [facility] [address], [place], [address], 02/27/2025 22:28:58 02/27/20 25 02/27/2025 DRUG MONIT OR, PANEL 1, SCREE N, URINE barbiturates NEGATI VE NG/mL <300 See Note A See Note A Not Available [facility] [address] [address], [place], [address], 02/27/2025 22:28:58 02/27/20 25 02/27/2025 DRUG MONIT OR, PANEL 1, SCREE N, URINE benzodiazepi duane NEGATI VE NG/mL <100 See Note A See Note A Not Available [facility] [address], [place], [address], 02/27/2025 22:28:58 02/27/2002/27/2025 DRUG MONIT OR, PANEL 1, SCREE N, URINE cocaine metabolite NEGATI VE NG/mL <150 See Note A See Note A Not Available [facility] [address], [place], [address], 02/27/2025 22:28:58 02/27/20 25 02/27/2025 DRUG MONIT OR, PANEL 1, SCREE N, URINE marijuana metabolite NEGATI VE NG/mL <20 See Note A See Note A Not Available [facility] [address], [place], [address], 02/27/2025 22:28:58 02/27/20 25 02/27/2025 DRUG MONIT OR, PANEL 1, SCREE N, URINE methadone metabolite NEGATI VE NG/mL <100 See Note A See Note A Not Available [facility] [address], [place], [address], 02/27/2025 22:28:58 02/27/20 25 02/27/2025 DRUG MONIT OR, PANEL 1, SCREE N, URINE opiates NEGATI VE NG/mL <100 See Note A See Note A Not Available [address], [place], [address], 02/27/2025 22:28:58 02/27/20 25 02/27/2025 DRUG MONIT OR, PANEL 1, SCREE N, URINE oxycodone NEGATI VE NG/mL <100 See Note A See Note A Not Available [address], [place], [address], 02/27/2025 22:28:58 02/27/20 25 02/27/2025 DRUG MONIT OR, PANEL 1, SCREE N, URINE phencyclidin e NEGATI VE NG/mL <25 See Note A See Note A Not Available [address], [place], [address], 02/27/2025 22:28:58 02/27/20 25 02/27/2025 DRUG MONIT OR, PANEL 1, SCREE N, URINE creatinine 108.1 mg/dL > or = 20.0 Not Available [address], [place], [address], 02/27/2025 22:28:58 02/27/20 25 02/27/2025 DRUG MONIT OR, PANEL 1, SCREE N, URINE pH 7.7 4.5-9. 0 Not Available [address], [place], [address], 02/27/2025 22:28:58 02/27/20 25 02/27/2025 DRUG MONIT OR, PANEL 1, SCREE N, URINE oxidant NEGATI VE mcg/m L <200 Not Available [address], [place], [address], 02/27/2025 22:28:58 02/27/20 25 02/27/2025 DRUG MONIT [...] ders needi ng Inter preta tion yanci sabrina gannon e conta ct us at 1.877 .40.R XTOX (1.87 7.407 .9869 ) M-F, 8am to 10pm EST Not Available [address] [address] [place], [address], 02/27/2025 22:28:59 02/27/2002/27/2025 CULTU RE, URINE , ROUTI NE culture, urine, routine SEE NOTE CULTU RE, URINE , ROUTI NE Micro Numbe r: [id number] Test Statu s: Final Speci men Sourc e: Urine Speci men Quali ty: Adequ ate Resul t: No Growt h Not Available [address] [address] [place], [address], 02/27/2025 22:28:59 02/27/2003/08/2025 THINP REP TIS PAP (REFL ) HPV MRNA E6/E7 clinical information: normal Pregn ant Not Available [facility] [address] [address] [place], [address], 03/08/2025 08:16:51 02/27/2003/08/2025 THINP REP TIS PAP (REFL ) HPV MRNA E6/E7 LMP: normal NONE GIVEN Not Available [facility] [address] [address] [place], [address], 03/08/2025 08:16:51 02/27/20 25 03/08/2025 THINP REP TIS PAP (REFL ) HPV MRNA E6/E7 prev. Pap: normal NONE GIVEN Not Available [address], [address], 03/08/2025 08:16:51 02/27/2003/08/2025 THINP REP TIS PAP (REFL ) HPV MRNA E6/E7 prev. BX: normal NONE GIVEN Not Available [address] [place], [address], 03/08/2025 08:16:51 02/27/2003/08/2025 THINP REP TIS PAP (REFL ) HPV MRNA E6/E7 source: normal Cervi x, Endoc ervix Not Available [address], [address], 03/08/2025 08:16:51 02/27/2003/08/2025 THINP REP TIS PAP (REFL ) HPV MRNA E6/E7 statement of adequacy: normal Satis facto ry for evalu ation . Endoc ervic al/tr ansfo rmati on zone compo nent prese nt. Not Available [address], [address], 03/08/2025 08:16:51 02/27/2003/08/2025 THINP REP TIS PAP (REFL ) HPV MRNA E6/E7 general categorizati on: abnormal Cytol ogy Resul ts: Epith elial Cell Abnor malit y Not Available [address], [address], 03/08/2025 08:16:51 02/27/2003/08/2025 THINP REP TIS PAP (REFL ) HPV MRNA E6/E7 interpretati on/result: abnormal Low Grade Squam ous Intra epith elial Lesio n (LSIL ) Not Available [address] [place], [address], 03/08/2025 08:16:51 02/27/20 25 03/08/2025 THINP REP TIS PAP (REFL ) HPV MRNA E6/E7 comment: normal This Pap test has been evalu ated with sherice mayen techn ology . Sugge st clini rajiv corre latio n and follo w-up as clini solomon appro priat e Not Available [address] [address] [place], [address], 03/08/2025 08:16:51 02/27/20 25 03/08/2025 THINP REP TIS PAP (REFL ) HPV MRNA E6/E7 cytotechnolo gist: normal KMS, CT( CP) CT Scree pat locat ion: [address] [place] [address] Not Available [address] [address] [place], [address], 03/08/2025 08:16:51 02/27/20 25 03/08/2025 THINP REP TIS PAP (REFL ) HPV MRNA E6/E7 pathologist: normal Alisha monique M.D., Board Certi fied in [place] Patho logy and Cytop athol ogy. Phone : [phone] (elec troni c signa ture) Patho logis t Relea se Date/ Time: 03/06 09:25 AM Not Available [address] [address] [place], [address], 03/08/2025 08:16:51 02/27/20 25 03/08/2025 THINP REP [...] clini rajiv infor amy raphael. Not Available [address] [address] [place], [address], 03/08/2025 08:16:51 02/27/20 25 03/08/2025 HPV MRNA [...] to http: //[facility] raphael.patience stdia gnost ics.c om/fa q/FAQ 129v1 (This link if provi ded for infor amy raphael/ educa jhonathan l purpo ses only. ) Not Available [address] [address] [place], [address], 03/08/2025 08:16:53 02/27/20 25 02/26/2025 CT + NG + TV, DNA, urine /swab Chlamydia negati ve Not Available [facility] ([facility]) [address] [place] [address], [address], 02/25/2025 18:55:26 02/27/20 25 02/26/2025 CT + NG + TV, DNA, urine /swab Gonorrhea negati ve Not Available [facility] ([facility]) [address] [place] [address], [address], 02/25/2025 18:55:26 02/27/20 25 02/26/2025 CT + NG + TV, DNA, urine /swab Trichomonas negati ve Not Available [facility] ([facility]) [address] [place], [address], 02/25/2025 18:55:26 07/02/20 25 07/02/2025 CBC WBC 11.1 x10 4.0-10 .5 high Not Available [facility] [address] [facility] [address] [address], [place], [address], 07/02/2025 10:24:57 07/02/20 25 07/02/2025 CBC RBC 3.96 x10 3.50-5 .50 Not Available [facility] [address] [facility] [address], [place], [address], 07/02/2025 10:24:57 07/02/20 25 07/02/2025 CBC HGB 12.0 g/dL 12.0-1 6.0 Not Available [facility] [address] [facility], [place], [address], 07/02/2025 10:24:57 07/02/20 25 07/02/2025 CBC HCT 37.1 % 37.0-4 7.0 Not Available [facility] [address] [facility], [place], [address], 07/02/2025 10:24:57 07/02/20 25 07/02/2025 CBC MCV 93.8 fL 80.0-9 9.9 Not Available [facility] [address] [facility] Nuria [facility] 1, [place], [address], 07/02/2025 10:24:57 07/02/20 25 07/02/2025 CBC MCH 30.4 pg 27.0-3 2.0 Not Available [facility] [address] [facility] 1, [place], [address], 07/02/2025 10:24:57 07/02/2007/02/2025 CBC MCHC 32.4 g/dL 32.0-3 6.0 Not Available [facility] [address] [facility] 1, [place], [address], 07/02/2025 10:24:57 07/02/2007/02/2025 CBC RDW 12.9 % 11.5-1 4.5 Not Available [facility] [address] [facility] 1, [place], [address], 07/02/2025 10:24:57 07/02/2007/02/2025 CBC plt 227.7 x10 140.0- 451.0 Not Available [facility] [address] [facility] Qu[facility] 1, [place], [address], 07/02/2025 10:24:57 07/02/2007/02/2025 CBC lymphocytes % 15.5 % 20.0-5 0.0 low Not Available [facility] [address] [facility] 1, [place], [address], 07/02/2025 10:24:57 07/02/2007/02/2025 CBC granulcytes % 78.3 % 30.0-7 0.0 high Not Available [facility] [address] [facility] Qu[facility] 1, [place], [address], 07/02/2025 10:24:57 07/02/2007/02/2025 CBC monocytes % 4.2 % 2.0-16 .0 Not Available [facility] [address] [facility] Qu[facility]ones [facility] 1, [place], [address], 07/02/2025 10:24:57 07/02/2007/02/2025 CBC granulcytes# 8.7 x10 Not Jenny ilable [facility] [address] [facility] [address], [place], [address], 07/02/2025 10:24:57 07/02/20 25 07/02/2025 CBC lymphocytes # 1.7 x10 Not Available [facility] [address] [facility] [address], [place], [address], 07/02/2025 10:24:57 07/02/20 25 07/02/2025 CBC monocytes # 0.5 x10 Not Avai lable [facility] [address] [facility] [address], [place], [address], 07/02/2025 10:24:57 07/02/20 25 07/02/2025 GLUCO SE SCREE N glucose screen 135.0 mg/dL Not Available [facility] [address] [address], [place], [address], 07/02/2025 10:30:30 07/11/20 25 07/11/2025 GLUCO SE SCREE N glucose screen 133.0 mg/dL Not Available [facility] [address] [facility] [address], [place], [address], 07/11/2025 10:37:03 02/19/20 25 02/12/2025 US, chadwick tric, 1st trime ster No observ ation record ed. [email or web address] Not Available 02/19 09:09:34 04/25/20 25 04/18/2025 US, chadwick tric, follo w-up No observ ation record ed. [email or web address] [facility] [address] [place] [place], [address], 04/29/2025 09:24:34 05/11/20 25 05/07/2025 US, angelae tric, 2nd trime ster No observ ation record ed. [address] [place], [address], 05/13/2025 17:57:21 07/05/20 25 07/02/2025 imagi ng/di agnos tic resul t No observ ation record ed. [facility] [address] [place], [address], 07/09/2025 10:35:54 Result Notes None recorded. Problems Name Problem SNOMED Code Status Onset Date Resolution Date Notes Provider Name and Address Organization Details Recorded Time Rheumatoid arthritis 15005484 Active 2022 KERWIN roper [employer] [facility] L[facility]CRemigio 5 14:16:25 Pain of knee region 9852465989 Completed 202301/24/2025 KERWIN roper [facility] 5 14:16:23 Family history of diabetes mellitus 743790442 Active 2023 KERWIN roper [facility] 5 14:16:18 Normal 31288423 Active 2024 ROXI Vang [facility] 5 10:22:35 Normal 13344389 Active 2024 ROXI PLUMMER null [facility] 5 10:22:35 Placenta previa partialis 27214225 Active 2024 Alvaro Angelo MD [address] [place] [address], [phone], [facility], L.L.CRemigio 5 02:46:26 Low-lying placenta 830173858 Active 2024 Alvaro Angelo MD [address] [place] [address], [phone], [facility] 5 11:36:47 Problem Notes None recorded. Procedures Surgical History Date Name Laterality Status Provider Name and Address Organization Details Recorded Time 02/27/20 25 Date of Last Pap Smear completed [facility] 09/02/2025 18:39:21 02/27/20 25 liquid based cervical cytology screening completed [facility] 09/02/2025 18:39:54 01/31/20 24 colposcopy completed [facility] 01/24/2025 14:17:49 01/31/20 24 hysteroscopy completed [facility] 01/24/2025 14:18:46 arthroscopy of left knee joint completed [facility]CR[facility]igio 01/24/2025 14:17:01 cholecystectomy completed [facility] 01/24/2025 14:17:33 Imaging Results None recorded. Procedure Notes None recorded. Medical Equipment None Reported. Allergies Allergen ID Allergen Name Allergen Category Reaction Reaction Severity Criticality Documentation Date Start Date Code Code System Note Provider Name and Address Organization Details Recorded Time 96994 Bactrim medicatio n hives moderate Not available 05/21/2023 88181 9 RxNorm ROXI SHEARER [facility] 5 15:30:03 64622 Product containin g penicilli n (product) medicatio n hives moderate Not available 05/21/2023 98278 8001 SNOMED BENNETT MANFRED [facility] 5 15:30:03 58293 Augmentin medicatio n hives moderate Not available 01/24/2025 89950 2 RxNorm [facility] 5 14:19:18 32420 Celebrex medicatio n other moderate Not available 01/24/2025 40713 7 RxNorm TREBA MANFRED KAVITHA [facility], VikiLRem[facility]. 5 15:30:03 61210 Substance with sulfonami de structure and antibacte rial mechanism of action (substanc e) medicatio n hives moderate Not available 04/18/2025 62074 8003 SNOMED ROXI SHEARER KAVITHA [facility] 5 15:30:03 51623 amoxicill in / clavulana te medicatio n hives Not available high 09/06/20252022 09486 RxNorm Yessy ates PCN and amoxi cilli n fine Not Available anna - External Data Service - prod 5 07:58:34 19946 celecoxib medicatio n Not available Not available high 09/06/20252022 80383 7 RxNorm Not Available anna - External Data Service - prod 5 07:58:34 57894 amoxicill in medicatio n Not available Not available low 09/27/20252023 723 RxNorm Not Available anna - External Data Service - prod 5 13:40:54 41562 clavulani c acid Not available Not available Not available low 09/27/20252023 41243 RxNorm Not Available anna - External Data Service - prod 5 13:40:54 38995 sulfameth oxazole medicatio n Not available Not available Not available 09/27/20252023 20102 RxNorm Not Available anna - External Data Service - prod 13:40:54 10253 trimethop rim medicatio n Not available Not available Not available 09/27/20252023 49046 RxNorm Not Available anna - External Data Service - prod 5 13:40:54 Medications Name Sig Start Date Stop [...] Organization Details Last Updated DateTime 170.18 cm 36.4 kg/m2 404578. 13 g 98 % 75 /min 18 /min 98.7 [degF] 122/64 mm[Hg] ROXI PLUMMER [facility] 11:11:55 Social History Question Answer Notes LastModified by [employer] Details LastModified Time Tobacco Smoking Status Former Smoker ANTONIO BOGDAN [facility] 01/24/2023 10:09:31 Are You Blind Or Do You Have Difficulty Seeing? No Information not available 01/24/2025 Are You Deaf Or Do You Have Serious Difficulty Hearing? No [email or web address] Information not available 01/24/2023 When Did You Quit Smoking? 1-5yearssinc elastcigaret te [email or web address] Information not available 01/24/2023 Do You Work In Healthcare? No Information not available 01/24/2025 What Was The Date Of Your Most Recent Tobacco Screening? 03/26/2025 [email or web address] Information not available 03/26/2025 What Is Your Relationship Status? Information not available 01/24/2025 Have You Recently Traveled Abroad? No [email or web address] Information not available 01/24/2023 Do You Have Difficulty Walking Or Climbing Stairs? No Information not available 01/24/2023 Sex: Unknown Functional Status Question Answer Note LastModified by [employer] Details LastModified Time Do you use any [...] independently without assistance or assistive devices? YESWOREST [email or web address] Information not available 01/24/2023 Do you have difficulty doing errands alone? No [email or web address] Information not available 01/24/2023 Are you able to care for yourself independently? 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 No [email or web address] Information not available 01/24/2023 Do you or have you ever used e-cigarettes or vape? Former user of electronic cigarettes Information not available 01/24/2025 Mental Status Question Answer Note LastModified by Organization D etails LastModified Time Do you have difficulty concentrating, remembering or making decisions? No [email or web address] Information no t available 01/24/2023 Family History Relationship Description Onset Age of this Age Resolved Age Notes LastModified by Organization Details LastModified Time Father Diabetes mellitus [email or web address] Not available 2023 09:43:45 Paternal Grandmother Malignant [...] Recorded Time IPV 09/28/2000 completed Susan roper, [employer] [facility] 10/09/2024 09:35:10 MMR 04/11/1996 completed Susan roper [facility] 10/09/2024 09:35:10 MMR 09/28/2000 completed Susan roper, [employer] 10/09/2024 09:35:10 Tdap 11/17/2010 completed Susan roper [facility] 10/09/2024 09:35:10 Tdap 02/20/2015 completed Susan roper [facility] 10/09/2024 09:35:10 Hep B, unspecified formulation 1995 completed Susan roper, [facility] 10/09/2024 09:35:10 Hep B, unspecified formulation 02/28/1996 completed Susan roper, [facility] 10/09/2024 09:35:10 Hep B, unspecified formulation 1995 completed Susan roper [facility] 10/09/2024 09:35:10 OPV, trivalent 1995 completed Susan roper, [facility] 10/09/2024 09:35:10 OPV, trivalent 02/28/1996 completed Susan roper, [facility] 10/09/2024 09:35:10 OPV, trivalent 1995 completed Susan roper [facility] 10/09/2024 09:35:10 DTP-Hib 11/29/1996 completed Susan Wilson null, [facility] 10/09/2024 09:35:10 DTP-Hib 1995 completed Susan Wilson null, [facility] 10/09/2024 09:35:10 DTP-Hib 02/28/1996 completed Susan Wilson null, [facility] 10/09/2024 09:35:10 DTP-Hib 1995 completed Susan Wilson null, [facility] 10/09/2024 09:35:10 DTaP 09/28/2000 completed Susan Wilson null, [facility] 10/09/2024 09:35:10 Past Encounters Encounter ID Performer Location Encounter Start Date Encounter Closed Date Diagnosis/Indication Diagnosis SNOMED-CT Code Diagnosis ICD10 Code Diagnosis IMO Codes Diagnosis Note [id number] Alvaro Angelo MD [facility] [address] [place] [address] [phone] 06/18/2025 11:21:56 06/18/2025 12:15:35 Normal 12367673 Z34.81 Gestation period, 26 weeks 55429145 Z3A.26 [id number] Alvaro Angelo MD [facility] [address] [place] [address] [phone] 5 07/02/2025 08:58:15 07/03/2025 12:00:14 [id number] Alvaro Angelo MD [facility] [address] [place] [address] [phone] 5 07/02/2025 08:58:47 07/04/2025 04:05:41 [id number] Alvaro Angelo MD [facility] ([facility]) [address] [place] [address] [id number] 5 07/02/2025 10:39:30 07/02/2025 11:45:25 Normal 06735553 Z34.83 [id number] Gestation period, 28 weeks 96098265 Z3A.28 [id number] Alvaro Angelo MD [facility] ([facility]) [address] [place] [address] 5 07/16/2025 10:32:08 07/16/2025 11:40:01 Multigravida 986130005 Z34.83 [id number] Gestation period, 30 weeks 89775914 Z3A.30 [id number] Health Concerns Section Related Observation LastModified by Organization Detai ls LastModified Time None Recorded Concern Status LastModified by Organization Details LastModified Time None Recorded Payers Encounter Date Sequence Insurance Name Policy Number Policy Fierro Covered Member ID Fierro Member ID Guarantor Name 07/16/2025 1 [employer] [id number] Jeffy Eric Erasmo [id number] Jeffy Zimmerman Notes Date Note Type [...] noted in the HPI Alvaro Angelo MD [address] [place] [address], [id number], [facility], L.LRemigioCRemigio 07/16/2025 11:39:58 OBGyn Episode Ob Episode Information Episode Created Date Number of Fetuses Patient Bloodtype Patient rh Status Prepregnancy Weight lbs Domestic Partner Domestic Partner Phone 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 Status 01/25/20 25 1 O Positive Damián OPEN Fetus Data First Name Last Name Admitted to NICU Weight (g) Sex Living Outcome Pediatric Complications Fetus ID Race Codes Race Delivery Type [id number] Problems Problem Notes 07/30/25- pt declined TDaP an d RSV injectionGroup B Strep Positive - Use ancefInduction set for saturday 12/7 Problem Name Start Date End Date Resolution Snomed Code Not e Normal 02/25/2025 [id number] Merrill Calculation Initial Merrill Date Initial Exam [...] Weight in lbs Pre/Post Dialysis Refused Weight 227.676265010795 BP Diastolic BP Location Tested BP Systolic [...] Weight in lbs Pre/Post Dialysis Refused Weight 221.438006077189 BP Diastolic BP Location Tested BP Systolic [...] Weight in lbs Pre/Post Dialysis Refused Weight 221.627233104589 BP Diastolic BP Location Tested BP Systolic [...] Weight in lbs Pre/Post Dialysis Refused Weight 225.568719396387 BP Diastolic BP Location Tested BP Systolic [...] Weight in lbs Pre/Post Dialysis Refused Weight 230.983009324876 BP Diastolic BP Location Tested BP Systolic BP Type 62 L arm 106 Fetus Heart Rate Present A 148 Present Fetus Movement A Yes Comments heartburn Flowsheet Date 06/18/2025 Sierra Score Blood Edema Fundus Height Fundus Units Glucose Ketones Leukocytes Nitrite Labor Signs Protein Cervic Dilation Cervic Effacement Cervic Station Type Weight in lbs Pre/Post Dialysis Refused Weight 229.0832134969 BP Diastolic BP Location Tested BP Systolic [...] Weight in lbs Pre/Post Dialysis Refused Weight 234.114176825337 BP Diastolic BP Location Tested BP Systolic [...] Weight in lbs Pre/Post Dialysis Refused Weight 232.355585601262 BP Diastolic BP Location Tested BP Systolic [...] Weight in lbs Pre/Post Dialysis Refused Weight 236.363358972490 BP Diastolic BP Location Tested BP Systolic [...] Weight in lbs Pre/Post Dialysis Refused Weight 239.584194885598 BP Diastolic BP Location Tested BP Systolic [...] Weight in lbs Pre/Post Dialysis Refused Weight 241.973162680204 BP Diastolic BP Location Tested BP Systolic [...] Weight in lbs Pre/Post Dialysis Refused Weight 241.370219463792 BP Diastolic BP Location Tested BP Systolic [...] Weight in lbs Pre/Post Dialysis Refused Weight 243.781027288177 BP Diastolic BP Location Tested BP Systolic BP Type 70 120 Fetus Heart Rate Present Fetus Movement Comments Flowsheet Date 09/10/2025 Sierra Score Blood Edema Fundus Height Fundus Units Glucose Ketones Leukocytes Nitrite Labor Signs Protein Cervic Dilation Cervic Effacement Cervic Station none trace Negative Michael Garnett neg 2cm 70% -3 Type Weight in lbs Pre/Post Dialysis Refused Weight 243.958289403851 BP Diastolic BP Location Tested BP Systolic [...] Weight in lbs Pre/Post Dialysis Refused Weight 242.651313490843 BP Diastolic BP Location Tested BP Systolic BP Type 70 122 Fetus Heart Rate Present A 164 Present Fetus Movement A Yes Comments low back pain, vaginal press ure, swelling in hands/feet Flowsheet Date 09/24/2025 Sierra Score Blood Edema Fundus Height Fundus Units Glucose Ketones Leukocytes Nitrite Labor Signs Protein Cervic Dilation Cervic Effacement Cervic Station none 1+ Negative [place] [facility] Garnett trace 3cm 70% -4 Type Weight in lbs Pre/Post Dialysis Refused Weight 244.036619193884 BP Diastolic BP Location Tested BP Systolic [...] Weight in lbs Pre/Post Dialysis Refused Weight 248.722679893998 BP Diastolic BP Location Tested BP Systolic [...] Estim ated Date of Delivery false Thalassemia (Greenlandic, Argentine, Mediterranean, Or Background): MCV < 80 false Neural Tube Defect (Meningomyelocele, Spina Bifi da, Or Anencephaly) false Congenital Heart Defect false Down Syndrome false Maco-Sachs (eg, Adventist, Cajun, Mohawk-Moroccan) f alse Dustin Disease false Sickle Cell Disease Or Trait () false Hemophilia Or Other Blood Disorders false Muscular Dystrophy false Cystic Fibrosis false Conway's Chorea false Intellectual Disability/Autism false If Yes, [...]
--- OUTSIDE RECORDS SUMMARY | 2025-09-30 23:39 | XMS_ITS | Clinical Summary ---
Author Organization [facility] Address [address] 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 Gender Identity Female 05/15/2023 6:46 PM CDT [...] 19+ 3-dose series) 03/24 HPV/Cotest (21-29) 2016 CERVICAL CANCER SCREENING 2025 HPV/Cotest (30-65) 2025 PAP SMEAR 2025 INFLUENZA VACCINE (#1) 2025 HPV VACCINES (No Doses Required) Completed [place] [address] [place] [id number] [place] [address] CHOICE [id number] Advance Directives For more information, please contact: [phone] * Full Code (Latest Code Status on File) Date Activated Date Inactivated Comments 05/11/2023 9:25 AM 05/11/2023 1:06 PM Care Teams Solar Installation Manager Relationship Specialty Start Date End Date Bunny Hooks DO [address] [facility] [address] [place] [address] PCP - General Internal Medicine 03/01/23
--- OUTSIDE RECORDS SUMMARY | 2025-09-30 23:39 | XMS_ITS | Continuity of Care Document ---
Author Organization [facility] Fabio Myers [facility] Rafael, [place], [facility] ([facility]) Address [address] [place] [address] Assessment No assessment recorded. Plan of Treatment [...] ETE color YELLOW yellow normal Not Available [facility] [address] [place], [address], 02/27/2025 22:28:50 02/27/20 25 02/27/2025 URINA LYSIS , COMPL ETE appearance CLEAR clear normal Not Available [facility] [address] [place], [address], 02/27/2025 22:28:50 02/27/20 25 02/27/2025 URINA LYSIS , COMPL ETE specific gravity 1.012 1.001- 1.035 normal Not Available [facility] [address] [place], [address], 02/27/2025 22:28:50 02/27/20 25 02/27/2025 URINA LYSIS , COMPL ETE pH 7.5 5.0-8. 0 normal Not Available [address], [address], 02/27/2025 22:28:50 02/27/20 25 02/27/2025 URINA LYSIS , COMPL ETE glucose NEGATI VE negati ve normal Not Available [address], [address], 02/27/2025 22:28:50 02/27/20 25 02/27/2025 URINA LYSIS , COMPL ETE bilirubin NEGATI VE negati ve normal Not Available [address], [address], 02/27/2025 22:28:50 02/27/20 25 02/27/2025 URINA LYSIS , COMPL ETE ketones NEGATI VE negati ve normal Not Available [address], [address], 02/27/2025 22:28:50 02/27/20 25 02/27/2025 URINA LYSIS , COMPL ETE occult blood NEGATI VE negati ve normal Not Available [facility] [address], [address], 02/27/2025 22:28:50 02/27/20 25 02/27/2025 URINA LYSIS , COMPL ETE protein NEGATI VE negati ve normal Not Available [facility] [address], [address], 02/27/2025 22:28:50 02/27/20 25 02/27/2025 URINA LYSIS , COMPL ETE nitrite NEGATI VE negati ve normal Not Available [facility] [address], [address], 02/27/2025 22:28:50 02/27/20 25 02/27/2025 URINA LYSIS , COMPL ETE leukocyte esterase TRACE negati ve abnormal Not Available [address], [address], 02/27/2025 22:28:50 02/27/20 25 02/27/2025 URINA LYSIS , COMPL ETE WBC NONE SEEN /hpf < or = 5 normal Not Available [address], [address], 02/27/2025 22:28:50 02/27/20 25 02/27/2025 URINA LYSIS , COMPL ETE RBC NONE SEEN /hpf < or = 2 normal Not Available [address], [address], 02/27/2025 22:28:50 02/27/20 25 02/27/2025 URINA LYSIS , COMPL ETE squamous epithelial cells 6-10 /hpf < or = 5 abnormal Not Available [address], [address], 02/27/2025 22:28:50 02/27/20 25 02/27/2025 URINA LYSIS , COMPL ETE bacteria NONE SEEN /hpf none seen normal Not Available [address], [address], 02/27/2025 22:28:50 02/27/20 25 02/27/2025 URINA LYSIS , COMPL ETE hyaline cast NONE SEEN /lpf none seen normal Not Available [address], [address], 02/27/2025 22:28:50 02/27/20 25 02/27/2025 URINA LYSIS , COMPL ETE note This urine was jim zed for the prese nce of WBC, RBC, bacte terry, casts , and other forme d eleme nts. Only those eleme nts seen were repor bruce. Not Available [address], [address], 02/27/2025 22:28:50 02/27/20 25 02/27/2025 CBC (INCL UDES DIFF/ PLT) white blood cell count 8.9 thous and/u L 3.8-10 .8 normal Not Available [address], [address], 02/27/2025 22:28:51 02/27/20 25 02/27/2025 CBC (INCL UDES DIFF/ PLT) red blood cell count 4.42 erick on/uL 3.80-5 .10 normal Not Available [address], [address], 02/27/2025 22:28:51 02/27/20 25 02/27/2025 CBC (INCL UDES DIFF/ PLT) hemoglobin 13.2 g/dL 11.7-1 5.5 normal Not Available [address], [address], 02/27/2025 22:28:51 02/27/20 25 02/27/2025 CBC (INCL UDES DIFF/ PLT) hematocrit 41.4 % 35.0-4 5.0 normal Not Available [address], [address], 02/27/2025 22:28:51 02/27/20 25 02/27/2025 CBC (INCL UDES DIFF/ PLT) MCV 93.7 fL 80.0-1 00.0 normal Not Available [address], [address], 02/27/2025 22:28:51 02/27/20 25 02/27/2025 CBC (INCL UDES DIFF/ PLT) MCH 29.9 pg 27.0-3 3.0 normal Not Available [facility] [address], [address], 02/27/2025 22:28:51 02/27/20 25 02/27/2025 CBC (INCL [...] rajiv condi tion. Not Available [facility] [address], [address], 02/27/2025 22:28:51 02/27/20 25 02/27/2025 CBC (INCL UDES DIFF/ PLT) RDW 12.5 % 11.0-1 5.0 normal Not Available [facility] [address], [address], 02/27/2025 22:28:51 02/27/20 25 02/27/2025 CBC (INCL UDES DIFF/ PLT) platelet count 294 thous and/u L 140-40 0 normal Not Available [facility] [address], [address], 02/27/2025 22:28:51 02/27/20 25 02/27/2025 CBC (INCL UDES DIFF/ PLT) MPV 11.6 fL 7.5-12 .5 normal Not Available [facility] [address], [address], 02/27/2025 22:28:51 02/27/20 25 02/27/2025 CBC (INCL UDES DIFF/ PLT) absolute neutrophils 6408 cells /uL 1500-7 800 normal Not Available [facility] [address], [address], 02/27/2025 22:28:51 02/27/20 25 02/27/2025 CBC (INCL UDES DIFF/ PLT) absolute lymphocytes 1833 cells /uL 850-39 00 normal Not Available [address], [address], 02/27/2025 22:28:51 02/27/20 25 02/27/2025 CBC (INCL UDES DIFF/ PLT) absolute monocytes 481 cells /uL 200-95 0 normal Not Available [address], [address], 02/27/2025 22:28:51 02/27/20 25 02/27/2025 CBC (INCL UDES DIFF/ PLT) absolute eosinophils 151 cells /uL 15-500 normal Not Available [address], [address], 02/27/2025 22:28:51 02/27/20 25 02/27/2025 CBC (INCL UDES DIFF/ PLT) absolute basophils 27 cells /uL 0-200 normal Not Available [address], [address], 02/27/2025 22:28:51 02/27/20 25 02/27/2025 CBC (INCL UDES DIFF/ PLT) neutrophils 72 % normal Not Available [address], [address], 02/27/2025 22:28:51 02/27/20 25 02/27/2025 CBC (INCL UDES DIFF/ PLT) lymphocytes 20.6 % normal Not Available [address], [address], 02/27/2025 22:28:51 02/27/20 25 02/27/2025 CBC (INCL UDES DIFF/ PLT) monocytes 5.4 % normal Not Available [address], [address], 02/27/2025 22:28:51 02/27/20 25 02/27/2025 CBC (INCL UDES DIFF/ PLT) eosinophils 1.7 % normal Not Available [address] [address] [place], [address], 02/27/2025 22:28:51 02/27/20 25 02/27/2025 CBC (INCL UDES DIFF/ PLT) basophils 0.3 % normal Not Available [facility] [address] [place], [address], 02/27/2025 22:28:51 02/27/20 25 02/27/2025 HEPAT ITIS B SURFA CE ANTIG EN W/REF L CONFI RM hepatitis B surface antigen NON-RE ACTIVE non-re active normal For addit ional infor amy raphael, sabrina e refer to http: //[facility] raphael.que stdia gnost ics.c om/fa q/FAQ 202 (This link is being provi ded for infor matio nal/ educa jhonathan l purpo ses only. ) Not Available [facility] [address], [address], 02/27/2025 22:28:52 02/27/20 25 02/27/2025 HEPAT ITIS [...] a test for HCV RNA (test code 89616 ) is sugge sted. For addit ional infor amy raphael pleas e refer to http: //[facility] n.que stdia gnost ics.c om/fa q/FAQ 22v1 (This link is being provi ded for infor matio nal/ educa jhonathan l purpo ses only. ) Not Available [facility] [address] [address] [place], [address], 02/27/2025 22:28:53 02/27/20 25 02/27/2025 RUBEL LA [...] with rubel la virus . Not Available [facility] [address], [place], [address], 02/27/2025 22:28:53 02/27/2002/27/2025 HIV 1/2 ANTIG EN/AN [...] less than 2 years old. Not Available [address] [address] [place], [address], 02/27/2025 22:28:54 02/27/20 25 02/27/2025 RPR (DX) W/REF L TITER AND T. PALLI DUM AB, IA RPR (DX) w/refl titer and confirmatory testing NON-RE ACTIVE non-re active normal No labor atory evide nce of syphi lis. If recen t expos ure is suspe cted, submi t a new sampl e in 2-4 weeks . Not Available [facility] [address] [place], [address], 02/27/2025 22:28:55 02/27/20 25 02/27/2025 ANTIB MAICOL [...] alloi mmuni zed pregn benjamin. Not Available [address] [place], [address], 02/27/2025 22:28:56 02/27/20 25 02/27/2025 ABO GROUP AND RH TYPE ABO group O Not Available [facility] [address] [address] [place], [address], 02/27/2025 22:28:57 02/27/20 25 02/27/2025 ABO GROUP AND RH TYPE Rh type RH(D) POSITI VE For addit ional infor sabrina roth e refer to http: //[facility] hayley lesterQue stDia gnost ics.c om/fa q/FAQ 111 (This link is being provi ded for infor amy trujillo/ educcatracho ring l purpo ses only. ) Not Available [facility] [address] [address] [address], [place], [address], 02/27/2025 22:28:57 02/27/20 25 02/27/2025 DRUG MONIT OR, PANEL 1, SCREE N, URINE amphetamines NEGATI VE NG/mL <500 See Note A See Note A Not Available [facility] [address] [address] [address], [place], [address], 02/27/2025 22:28:58 02/27/20 25 02/27/2025 DRUG MONIT OR, PANEL 1, SCREE N, URINE barbiturates NEGATI VE NG/mL <300 See Note A See Note A Not Available [facility] [address] [address] [address], [place], [address], 02/27/2025 22:28:58 02/27/20 25 02/27/2025 DRUG MONIT OR, PANEL 1, SCREE N, URINE benzodiazepi duane NEGATI VE NG/mL <100 See Note A See Note A Not Available [facility] [address] [address] [address], [place], [address], 02/27/2025 22:28:58 02/27/2002/27/2025 DRUG MONIT OR, PANEL 1, SCREE N, URINE cocaine metabolite NEGATI VE NG/mL <150 See Note A See Note A Not Available [facility] [address] [address] [address], [place], [address], 02/27/2025 22:28:58 02/27/20 25 02/27/2025 DRUG MONIT OR, PANEL 1, SCREE N, URINE marijuana metabolite NEGATI VE NG/mL <20 See Note A See Note A Not Available [facility] [address] [address] [address], [place], [address], 02/27/2025 22:28:58 02/27/20 25 02/27/2025 DRUG MONIT OR, PANEL 1, SCREE N, URINE methadone metabolite NEGATI VE NG/mL <100 See Note A See Note A Not Available [facility] [address] [address] [address], [place], [address], 02/27/2025 22:28:58 02/27/20 25 02/27/2025 DRUG MONIT OR, PANEL 1, SCREE N, URINE opiates NEGATI VE NG/mL <100 See Note A See Note A Not Available [address] [address] [address], [place], [address], 02/27/2025 22:28:58 02/27/20 25 02/27/2025 DRUG MONIT OR, PANEL 1, SCREE N, URINE oxycodone NEGATI VE NG/mL <100 See Note A See Note A Not Available [address] [address] [address], [place], [address], 02/27/2025 22:28:58 02/27/20 25 02/27/2025 DRUG MONIT OR, PANEL 1, SCREE N, URINE phencyclidin e NEGATI VE NG/mL <25 See Note A See Note A Not Available [address] [address] [address], [place], [address], 02/27/2025 22:28:58 02/27/20 25 02/27/2025 DRUG MONIT OR, PANEL 1, SCREE N, URINE creatinine 108.1 mg/dL > or = 20.0 Not Available [address] [address], [place], [address], 02/27/2025 22:28:58 02/27/20 25 02/27/2025 DRUG MONIT OR, PANEL 1, SCREE N, URINE pH 7.7 4.5-9. 0 Not Available [address], [place], [address], 02/27/2025 22:28:58 02/27/20 25 02/27/2025 DRUG MONIT OR, PANEL 1, SCREE N, URINE oxidant NEGATI VE mcg/m L <200 Not Available [address], [place], [address], 02/27/2025 22:28:58 02/27/20 25 02/27/2025 DRUG MONIT [...] M-F, 8am to 10pm EST Not Available [address] [address] [place], [address], 02/27/2025 22:28:59 02/27/2002/27/2025 CULTU RE, URINE , ROUTI NE culture, urine, routine SEE NOTE CULTU RE, URINE , ROUTI NE Micro Numbe r: [id number] Test Statu s: Final Speci men Sourc e: Urine Speci men Quali ty: Adequ ate Resul t: No Growt h Not Available [address] [address] [place], [address], 02/27/2025 22:28:59 02/27/2003/08/2025 THINP REP TIS PAP (REFL ) HPV MRNA E6/E7 clinical information: normal Pregn ant Not Available [facility] [address] [address] [place], [address], 03/08/2025 08:16:51 02/27/2003/08/2025 THINP REP TIS PAP (REFL ) HPV MRNA E6/E7 LMP: normal NONE GIVEN Not Available [facility] [address] [address] [place], [address], 03/08/2025 08:16:51 02/27/20 25 03/08/2025 THINP REP TIS PAP (REFL ) HPV MRNA E6/E7 prev. Pap: normal NONE GIVEN Not Available [address], [address], 03/08/2025 08:16:51 02/27/2003/08/2025 THINP REP TIS PAP (REFL ) HPV MRNA E6/E7 prev. BX: normal NONE GIVEN Not Available [address] [place], [address], 03/08/2025 08:16:51 02/27/2003/08/2025 THINP REP TIS PAP (REFL ) HPV MRNA E6/E7 source: normal Cervi x, Endoc ervix Not Available [address], [address], 03/08/2025 08:16:51 02/27/2003/08/2025 THINP REP TIS PAP (REFL ) HPV MRNA E6/E7 statement of adequacy: normal Satis facto ry for evalu ation . Endoc ervic al/tr ansfo rmati on zone compo nent prese nt. Not Available [address], [address], 03/08/2025 08:16:51 02/27/2003/08/2025 THINP REP TIS PAP (REFL ) HPV MRNA E6/E7 general categorizati on: abnormal Cytol ogy Resul ts: Epith elial Cell Abnor malit y Not Available [address], [address], 03/08/2025 08:16:51 02/27/2003/08/2025 THINP REP TIS PAP (REFL ) HPV MRNA E6/E7 interpretati on/result: abnormal Low Grade Squam ous Intra epith elial Lesio n (LSIL ) Not Available [address] [place], [address], 03/08/2025 08:16:51 02/27/20 25 03/08/2025 THINP REP TIS PAP (REFL ) HPV MRNA E6/E7 comment: normal This Pap test has been evalu ated with sherice mayen techn ology . Sugge st clini rajiv corre latio n and follo w-up as clini solomon appro priat e Not Available [address] [address] [place], [address], 03/08/2025 08:16:51 02/27/20 25 03/08/2025 THINP REP TIS PAP (REFL ) HPV MRNA E6/E7 cytotechnolo gist: normal KMS, CT( CP) CT Scree pat locat ion: [address] [place] [address] Not Available [address] [address] [place], [address], 03/08/2025 08:16:51 02/27/20 25 03/08/2025 THINP REP TIS PAP (REFL ) HPV MRNA E6/E7 pathologist: normal Alisha monique M.D., Board Certi fied in [place] Patho logy and Cytop athol ogy. Phone : [phone] (elec troni c signa ture) Patho logis t Relea se Date/ Time: 03/06 09:25 AM Not Available [address] [address] [place], [address], 03/08/2025 08:16:51 02/27/20 25 03/08/2025 THINP REP [...] clini rajiv infor amy raphael. Not Available [address] [address] [place], [address], 03/08/2025 08:16:51 02/27/20 25 03/08/2025 HPV MRNA [...] l purpo ses only. ) Not Available [address] [address] [place], [address], 03/08/2025 08:16:53 02/27/20 25 02/26/2025 CT + NG + TV, DNA, urine /swab Chlamydia negati ve Not Available [facility] ([facility]) [address] [place] [address], [address], 02/25/2025 18:55:26 02/27/20 25 02/26/2025 CT + NG + TV, DNA, urine /swab Gonorrhea negati ve Not Available [facility] ([facility]) [address] [place] [address], [address], 02/25/2025 18:55:26 02/27/20 25 02/26/2025 CT + NG + TV, DNA, urine /swab Trichomonas negati ve Not Available [facility] ([facility]) [address] [place], [address], 02/25/2025 18:55:26 07/02/20 25 07/02/2025 CBC WBC 11.1 x10 4.0-10 .5 high Not Available [facility] [address] [facility] [address] [address], [place], [address], 07/02/2025 10:24:57 07/02/20 25 07/02/2025 CBC RBC 3.96 x10 3.50-5 .50 Not Available [facility] [address] [facility] 1, [place], [address], 07/02/2025 10:24:57 07/02/20 25 07/02/2025 CBC HGB 12.0 g/dL 12.0-1 6.0 Not Available [facility] [address] [facility] [address] [facility] [address], [place], [address], 07/02/2025 10:24:57 07/02/20 25 07/02/2025 CBC HCT 37.1 % 37.0-4 7.0 Not Available [facility] [address] [facility] [address] [facility] [address], [place], [address], 07/02/2025 10:24:57 07/02/20 25 07/02/2025 CBC MCV 93.8 fL 80.0-9 9.9 Not Available [facility] [address] [facility] N[address] [facility] 1, [place], [address], 07/02/2025 10:24:57 07/02/20 25 07/02/2025 CBC MCH 30.4 pg 27.0-3 2.0 Not Available [facility] [address] [facility] 1, [place], [address], 07/02/2025 10:24:57 07/02/2007/02/2025 CBC MCHC 32.4 g/dL 32.0-3 6.0 Not Available [facility] [address] [facility] [facility] 1, [place], [address], 07/02/2025 10:24:57 07/02/2007/02/2025 CBC RDW 12.9 % 11.5-1 4.5 Not Available [facility] [address] [facility] 1, [place], [address], 07/02/2025 10:24:57 07/02/2007/02/2025 CBC plt 227.7 x10 140.0- 451.0 Not Available [facility] [address] [facility] [address] [facility] 1, [place], [address], 07/02/2025 10:24:57 07/02/2007/02/2025 CBC lymphocytes % 15.5 % 20.0-5 0.0 low Not Available [facility] [address] [facility] 1, [place], [address], 07/02/2025 10:24:57 07/02/2007/02/2025 CBC granulcytes % 78.3 % 30.0-7 0.0 high Not Available [facility] [address] [facility] [facility] 1, [place], [address], 07/02/2025 10:24:57 07/02/2007/02/2025 CBC monocytes % 4.2 % 2.0-16 .0 Not Available [facility] [address] [facility] [address] [facility] 1, [place], [address], 07/02/2025 10:24:57 07/02/2007/02/2025 CBC granulcytes# 8.7 x10 Not Jenny ilable [facility] [address] [facility] [address], [place], [address], 07/02/2025 10:24:57 07/02/20 25 07/02/2025 CBC lymphocytes # 1.7 x10 Not Available [facility] [address] [facility] [address], [place], [address], 07/02/2025 10:24:57 07/02/20 25 07/02/2025 CBC monocytes # 0.5 x10 Not Avai lable [facility] [address] [facility] [address], [place], [address], 07/02/2025 10:24:57 07/02/20 25 07/02/2025 GLUCO SE SCREE N glucose screen 135.0 mg/dL Not Available [facility] [address] [address], [place], [address], 07/02/2025 10:30:30 07/11/20 25 07/11/2025 GLUCO SE SCREE N glucose screen 133.0 mg/dL Not Available [facility] [address] [facility] [address], [place], [address], 07/11/2025 10:37:03 02/19/20 25 02/12/2025 US, chadwick tric, 1st trime ster No observ ation record ed. [email or web address] Not Available 02/19 09:09:34 04/25/20 25 04/18/2025 US, chadwick tric, follo w-up No observ ation record ed. [email or web address] [facility] [address] [place], [address], 04/29/2025 09:24:34 05/11/20 25 05/07/2025 US, angelae tric, 2nd trime ster No observ ation record ed. [address] [place], [address], 05/13/2025 17:57:21 07/05/20 25 07/02/2025 imagi ng/di agnos tic resul t No observ ation record ed. [facility] [address] [place], [address], 07/09/2025 10:35:54 Result Notes None recorded. Problems Name Problem SNOMED Code Status Onset Date Resolution Date Notes Provider Name and Address Organization Details Recorded Time Rheumatoid arthritis 23552090 Active 2022 KERWIN roper [facility] 5 14:16:25 Pain of knee region 3559409191 Completed 202301/24/2025 KERWIN roper [facility] 5 14:16:23 Family history of diabetes mellitus 997282628 Active 2023 KERWIN roper [facility] 5 14:16:18 Normal 66542861 Active 2024 ROXI Vang [facility] 5 10:22:35 Normal 02853513 Active 2024 ROXI PLUMMER null [facility] 5 10:22:35 Placenta previa partialis 56695859 Active 2024 Alvaro Angelo MD [address] [place] [address], [phone], [facility] L[facility]CRemigio 5 02:46:26 Low-lying placenta 154862139 Active 2024 Alvaro Angelo MD [address] [place] [address], [phone], [facility] 5 11:36:47 Problem Notes None recorded. Procedures Surgical History Date Name Laterality Status Provider Name and Address Organization Details Recorded Time 02/27/20 25 Date of Last Pap Smear completed [facility] 09/02/2025 18:39:21 02/27/20 25 liquid based cervical cytology screening completed [facility] 09/02/2025 18:39:54 01/31/20 24 colposcopy completed [facility] 01/24/2025 14:17:49 01/31/20 24 hysteroscopy completed [facility] 01/24/2025 14:18:46 arthroscopy of left knee joint completed [facility]CR[facility]io 01/24/2025 14:17:01 cholecystectomy completed [facility] 01/24/2025 14:17:33 Imaging Results None recorded. Procedure Notes None recorded. Medical Equipment None Reported. Allergies Allergen ID Allergen Name Allergen Category Reaction Reaction Severity Criticality Documentation Date Start Date Code Code System Note Provider Name and Address Organization Details Recorded Time 97015 Bactrim medicatio n hives moderate Not available 05/21/2023 51501 9 RxNorm ROXI SHEARER [facility] 5 15:30:03 06332 Product containin g penicilli n (product) medicatio n hives moderate Not available 05/21/2023 36542 8001 SNOMED BENNETT MANFRED [facility] 5 15:30:03 13670 Augmentin medicatio n hives moderate Not available 01/24/2025 [address] [facility] 5 14:19:18 49870 Celebrex medicatio n other moderate Not available 01/24/2025 45772 7 RxNorm TREBA MANFRED KAVITHA [facility]. 5 15:30:03 69038 Substance with sulfonami de structure and antibacte rial mechanism of action (substanc e) medicatio n hives moderate Not available 04/18/2025 89379 8003 SNOMED ROXI SHEARER KAVITHA [facility] 5 15:30:03 21666 amoxicill in / clavulana te medicatio n hives Not available high 09/06/20252022 24308 RxNorm Yessy ates PCN and amoxi cilli n fine Not Available anna - External Data Service - prod 5 07:58:34 02676 celecoxib medicatio n Not available Not available high 09/06/20252022 26764 7 RxNorm Not Available anna - External Data Service - prod 5 07:58:34 87924 amoxicill in medicatio n Not available Not available low 09/27/20252023 723 RxNorm Not Available anna - External Data Service - prod 5 13:40:54 23465 clavulani c acid Not available Not available Not available low 09/27/20252023 01085 RxNorm Not Available anna - External Data Service - prod 5 13:40:54 18107 sulfameth oxazole medicatio n Not available Not available Not available 09/27/20252023 84594 RxNorm Not Available anna - External Data Service - prod 13:40:54 79396 trimethop rim medicatio n Not available Not available Not available 09/27/20252023 05382 RxNorm Not Available anna - External Data [...] Last Updated DateTime 170.18 cm 37 kg/m2 347330. 8 g 97 % 87 /min 18 /min 98.6 [degF] 120/76 mm[Hg] KERWIN DUNAWAY [facility] 11:17:22 Social History Question Answer Notes LastModified by [employer] ion Details LastModified Time Tobacco Smoking Status Former Smoker ANTONIO MCFADDEN jacquelin [facility] 01/24/2023 10:09:31 Are You Blind Or Do You Have Difficulty Seeing? No Information not available 01/24/2025 Are You Deaf Or Do You Have Serious Difficulty Hearing? No [email or web address] Information not available 01/24/2023 When Did You Quit Smoking? 1-5yearssinc elastcigaret te [email or web address] Information not available 01/24/2023 Do You Work In Healthcare? No Information not available 01/24/2025 What Was The Date Of Your Most Recent Tobacco Screening? 03/26/2025 [email or web address] Information not available 03/26/2025 What Is Your Relationship Status? Information not available 01/24/2025 Have You Recently Traveled Abroad? No Information not available 01/24/2023 Do You Have Difficulty Walking Or Climbing Stairs? No [email or web address] Information not available 01/24/2023 Sex: Unknown Functional [...] independently without assistance or assistive devices? YESWOREST [email or web address] Information not available 01/24/2023 Do you have difficulty doing errands alone? No [email or web address] Information not available 01/24/2023 Are you able to care for yourself independently? 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 No [email or web address] Information not available 01/24/2023 Do you or [...] Organization Details LastModified Time Father Diabetes mellitus [email or web address] Not available 2023 09:43:45 Paternal Grandmother Malignant [...] Recorded Time IPV 09/28/2000 completed Susan roper, [facility] 10/09/2024 09:35:10 MMR 04/11/1996 completed Susan roper, [facility] 10/09/2024 09:35:10 MMR 09/28/2000 completed Susan roper, [facility] 10/09/2024 09:35:10 Tdap 11/17/2010 completed Susan roper, [facility] 10/09/2024 09:35:10 Tdap 02/20/2015 completed Susan roper, [facility] 10/09/2024 09:35:10 Hep B, unspecified formulation 1995 completed Susan roper, [facility] 10/09/2024 09:35:10 Hep B, unspecified formulation 02/28/1996 completed Susan roper, [facility] 10/09/2024 09:35:10 Hep B, unspecified formulation 1995 completed Susan roper, [facility] 10/09/2024 09:35:10 OPV, trivalent 1995 completed Susan roper, [facility] 10/09/2024 09:35:10 OPV, trivalent 02/28/1996 completed Susan roper, [facility] 10/09/2024 09:35:10 OPV, trivalent 1995 completed Susan roper, [facility] 10/09/2024 09:35:10 DTP-Hib 11/29/1996 completed Susan Wilson null, [facility] 10/09/2024 09:35:10 DTP-Hib 1995 completed Susan Wilson null, [facility] 10/09/2024 09:35:10 DTP-Hib 02/28/1996 completed Susan Wilson null, [facility] 10/09/2024 09:35:10 DTP-Hib 1995 completed Susan Wilson null, [facility] 10/09/2024 09:35:10 DTaP 09/28/2000 completed Susan Wilson null, [facility] 10/09/2024 09:35:10 Past Encounters Encounter ID Performer Location Encounter Start Date Encounter Closed Date Diagnosis/Indication Diagnosis SNOMED-CT Code Diagnosis ICD10 Code Diagnosis IMO Codes Diagnosis Note [id number] Alvaro Angelo MD [facility]) [address] [place] [phone] 5 07/02/2025 08:58:15 07/03/2025 12:00:14 [id number] Alvaro Angelo MD [facility]) [address] [place] [address] [phone] 5 07/02/2025 08:58:47 07/04/2025 04:05:41 [id number] Alvaro Angelo MD [facility]) [address] [place] [address] [phone] 5 07/02/2025 10:39:30 07/02/2025 11:45:25 Normal 10128272 Z34.83 [id number] Gestation period, 28 weeks 80284658 Z3A.28 [id number] Alvaro Angelo MD [facility]) [address] [place] [address] [id number] 5 07/16/2025 10:32:08 07/16/2025 11:40:01 Multigravida 554863666 Z34.83 [id number] Gestation period, 30 weeks 70316191 Z3A.30 [id number] Alvaro Angelo MD [facility] [address] [place] [address] 07/30/2025 10:40:36 07/30/2025 11:28:24 Normal 98344733 Z34.83 Gestation period, 32 weeks 8350588 Z3A.32 [id number] Health Concerns Section Related Observation LastModified by Organization Detai ls LastModified Time None Recorded Concern Status LastModified by Organization Details LastModified Time None Recorded Payers Encounter Date Sequence Insurance Name Policy Number Policy Fierro Covered Member ID Fierro Member ID Guarantor Name 07/30/2025 1 [employer] [id number] Jeffy Zimmerman [id number] Jeffy Zimmerman Notes Date Note Type [...] noted in the HPI Alvaro Angelo MD [address] [place] [address], [phone], [facility] 07/30/2025 11:27:24 OBGyn Episode Ob Episode Information Episode Created Date Number of Fetuses Patient Bloodtype Patient rh Status Prepregnancy Weight lbs Domestic Partner Domestic Partner Phone Father Name Emt Dispatcher Status 01/25/20 25 1 O Positive Damián [...] Resolution Snomed Code Not e Normal 02/25/2025 [id number] Merrill Calculation Initial Merrill Date Initial Exam [...] Weight in lbs Pre/Post Dialysis Refused Weight 227.448994936995 BP Diastolic BP Location Tested BP Systolic [...] Weight in lbs Pre/Post Dialysis Refused Weight 221.703574080202 BP Diastolic BP Location Tested BP Systolic [...] Weight in lbs Pre/Post Dialysis Refused Weight 221.788623197080 BP Diastolic BP Location Tested BP Systolic [...] Weight in lbs Pre/Post Dialysis Refused Weight 225.593101658345 BP Diastolic BP Location Tested BP Systolic [...] Weight in lbs Pre/Post Dialysis Refused Weight 230.208036303120 BP Diastolic BP Location Tested BP Systolic BP Type 62 L arm 106 Fetus Heart Rate Present A 148 Present Fetus Movement A Yes Comments heartburn Flowsheet Date 06/18/2025 Sierra Score Blood Edema Fundus Height Fundus Units Glucose Ketones Leukocytes Nitrite Labor Signs Protein Cervic Dilation Cervic Effacement Cervic Station Type Weight in lbs Pre/Post Dialysis Refused Weight 229.2022035024 BP Diastolic BP Location Tested BP Systolic [...] Weight in lbs Pre/Post Dialysis Refused Weight 234.145396199730 BP Diastolic BP Location Tested BP Systolic [...] Weight in lbs Pre/Post Dialysis Refused Weight 232.145334897220 BP Diastolic BP Location Tested BP Systolic [...] Weight in lbs Pre/Post Dialysis Refused Weight 236.453069953796 BP Diastolic BP Location Tested BP Systolic BP Type 76 120 Fetus Heart Rate Present A 144 Present Fetus Movement A Yes Comments mild swelling, heartburn int ermittent Flowsheet Date 08/13/2025 Sierra Score Blood Edema Fundus Height Fundus Units Glucose Ketones Leukocytes Nitrite Labor Signs Protein Cervic Dilation Cervic Effacement Cervic Station 34 cm none trace [place] Garnett neg Type Weight in lbs Pre/Post Dialysis Refused Weight 239.787657828533 BP Diastolic BP Location Tested BP Systolic [...] Weight in lbs Pre/Post Dialysis Refused Weight 241.520192058839 BP Diastolic BP Location Tested BP Systolic [...] Cervic Effacement Cervic Station none none Negative [place] Garnett neg 2cm 70% -3 Type Weight in lbs Pre/Post Dialysis Refused Weight 241.746644131515 BP Diastolic BP Location Tested BP Systolic [...] Weight in lbs Pre/Post Dialysis Refused Weight 243.623875835326 BP Diastolic BP Location Tested BP Systolic BP Type 70 120 Fetus Heart Rate Present Fetus Movement Comments Flowsheet Date 09/10/2025 Sierra Score Blood Edema Fundus Height Fundus Units Glucose Ketones Leukocytes Nitrite Labor Signs Protein Cervic Dilation Cervic Effacement Cervic Station none trace Negative Michael Garnett neg 2cm 70% -3 Type Weight in lbs Pre/Post Dialysis Refused Weight 243.155502401775 BP Diastolic BP Location Tested BP Systolic [...] Weight in lbs Pre/Post Dialysis Refused Weight 242.751214555501 BP Diastolic BP Location Tested BP Systolic BP Type 70 122 Fetus Heart Rate Present A 164 Present Fetus Movement A Yes Comments low back pain, vaginal press ure, swelling in hands/feet Flowsheet Date 09/24/2025 Sierra Score Blood Edema Fundus Height Fundus Units Glucose Ketones Leukocytes Nitrite Labor Signs Protein Cervic Dilation Cervic Effacement Cervic Station none 1+ Negative [place] Garnett trace 3cm 70% -4 Type Weight in lbs Pre/Post Dialysis Refused Weight 244.222943951180 BP Diastolic BP Location Tested BP Systolic [...] Weight in lbs Pre/Post Dialysis Refused Weight 248.504985858901 BP Diastolic BP Location Tested BP Systolic [...] Estim ated Date of Delivery false Thalassemia (Marshallese, Latvian, Mediterranean, Or Background): MCV < 80 false Neural Tube Defect (Meningomyelocele, Spina Bifi da, Or Anencephaly) false Congenital Heart Defect false Down Syndrome false Maco-Sachs (eg, Rastafari, Cajun, Mosotho-Burundian) f alse Dustin Disease false Sickle Cell [...]
--- OUTSIDE RECORDS SUMMARY | 2025-09-30 23:39 | XMS_ITS | Continuity of Care Document ---
Author Organization [facility] Fabio Myers [facility] [place], [place], [facility] ([facility]) Address [address] [place] [address] Assessment No assessment recorded. Plan of Treatment [...] ETE color YELLOW yellow normal Not Available [facility] [employer] [address] [place], [address], 02/27/2025 22:28:50 02/27/20 25 02/27/2025 URINA LYSIS , COMPL ETE appearance CLEAR clear normal Not Available [email or web address] [address] [place], [address], 02/27/2025 22:28:50 02/27/20 25 02/27/2025 URINA LYSIS , COMPL ETE specific gravity 1.012 1.001- 1.035 normal Not Available [email or web address] [address] [place], [address], 02/27/2025 22:28:50 02/27/20 25 02/27/2025 URINA LYSIS , COMPL ETE pH 7.5 5.0-8. 0 normal Not Available [address], [address], 02/27/2025 22:28:50 02/27/20 25 02/27/2025 URINA LYSIS , COMPL ETE glucose NEGATI VE negati ve normal Not Available [address], [address], 02/27/2025 22:28:50 02/27/20 25 02/27/2025 URINA LYSIS , COMPL ETE bilirubin NEGATI VE negati ve normal Not Available [address], [address], 02/27/2025 22:28:50 02/27/20 25 02/27/2025 URINA LYSIS , COMPL ETE ketones NEGATI VE negati ve normal Not Available [address], [address], 02/27/2025 22:28:50 02/27/20 25 02/27/2025 URINA LYSIS , COMPL ETE occult blood NEGATI VE negati ve normal Not Available [facility] [address], [address], 02/27/2025 22:28:50 02/27/20 25 02/27/2025 URINA LYSIS , COMPL ETE protein NEGATI VE negati ve normal Not Available [facility] [address], [address], 02/27/2025 22:28:50 02/27/20 25 02/27/2025 URINA LYSIS , COMPL ETE nitrite NEGATI VE negati ve normal Not Available [facility] [address], [address], 02/27/2025 22:28:50 02/27/20 25 02/27/2025 URINA LYSIS , COMPL ETE leukocyte esterase TRACE negati ve abnormal Not Available [address], [address], 02/27/2025 22:28:50 02/27/20 25 02/27/2025 URINA LYSIS , COMPL ETE WBC NONE SEEN /hpf < or = 5 normal Not Available [address], [address], 02/27/2025 22:28:50 02/27/20 25 02/27/2025 URINA LYSIS , COMPL ETE RBC NONE SEEN /hpf < or = 2 normal Not Available [address], [address], 02/27/2025 22:28:50 02/27/20 25 02/27/2025 URINA LYSIS , COMPL ETE squamous epithelial cells 6-10 /hpf < or = 5 abnormal Not Available [address], [address], 02/27/2025 22:28:50 02/27/20 25 02/27/2025 URINA LYSIS , COMPL ETE bacteria NONE SEEN /hpf none seen normal Not Available [address], [address], 02/27/2025 22:28:50 02/27/20 25 02/27/2025 URINA LYSIS , COMPL ETE hyaline cast NONE SEEN /lpf none seen normal Not Available [address], [address], 02/27/2025 22:28:50 02/27/20 25 02/27/2025 URINA LYSIS , COMPL ETE note This urine was jim zed for the prese nce of WBC, RBC, bacte terry, casts , and other forme d eleme nts. Only those eleme nts seen were repor bruce. Not Available [address], [address], 02/27/2025 22:28:50 02/27/20 25 02/27/2025 CBC (INCL UDES DIFF/ PLT) white blood cell count 8.9 thous and/u L 3.8-10 .8 normal Not Available [address], [address], 02/27/2025 22:28:51 02/27/20 25 02/27/2025 CBC (INCL UDES DIFF/ PLT) red blood cell count 4.42 erick on/uL 3.80-5 .10 normal Not Available [address], [address], 02/27/2025 22:28:51 02/27/20 25 02/27/2025 CBC (INCL UDES DIFF/ PLT) hemoglobin 13.2 g/dL 11.7-1 5.5 normal Not Available [address], [address], 02/27/2025 22:28:51 02/27/20 25 02/27/2025 CBC (INCL UDES DIFF/ PLT) hematocrit 41.4 % 35.0-4 5.0 normal Not Available [address], [address], 02/27/2025 22:28:51 02/27/20 25 02/27/2025 CBC (INCL UDES DIFF/ PLT) MCV 93.7 fL 80.0-1 00.0 normal Not Available [address], [address], 02/27/2025 22:28:51 02/27/20 25 02/27/2025 CBC (INCL UDES DIFF/ PLT) MCH 29.9 pg 27.0-3 3.0 normal Not Available [facility] [address], [address], 02/27/2025 22:28:51 02/27/20 25 02/27/2025 CBC (INCL [...] rajiv condi tion. Not Available [facility] [address], [address], 02/27/2025 22:28:51 02/27/20 25 02/27/2025 CBC (INCL UDES DIFF/ PLT) RDW 12.5 % 11.0-1 5.0 normal Not Available [facility] [address], [address], 02/27/2025 22:28:51 02/27/20 25 02/27/2025 CBC (INCL UDES DIFF/ PLT) platelet count 294 thous and/u L 140-40 0 normal Not Available [facility] [address], [address], 02/27/2025 22:28:51 02/27/20 25 02/27/2025 CBC (INCL UDES DIFF/ PLT) MPV 11.6 fL 7.5-12 .5 normal Not Available [facility] [address], [address], 02/27/2025 22:28:51 02/27/20 25 02/27/2025 CBC (INCL UDES DIFF/ PLT) absolute neutrophils 6408 cells /uL 1500-7 800 normal Not Available [facility] [address], [address], 02/27/2025 22:28:51 02/27/20 25 02/27/2025 CBC (INCL UDES DIFF/ PLT) absolute lymphocytes 1833 cells /uL 850-39 00 normal Not Available [address], [address], 02/27/2025 22:28:51 02/27/20 25 02/27/2025 CBC (INCL UDES DIFF/ PLT) absolute monocytes 481 cells /uL 200-95 0 normal Not Available [address], [address], 02/27/2025 22:28:51 02/27/20 25 02/27/2025 CBC (INCL UDES DIFF/ PLT) absolute eosinophils 151 cells /uL 15-500 normal Not Available [address], [address], 02/27/2025 22:28:51 02/27/20 25 02/27/2025 CBC (INCL UDES DIFF/ PLT) absolute basophils 27 cells /uL 0-200 normal Not Available [address], [address], 02/27/2025 22:28:51 02/27/20 25 02/27/2025 CBC (INCL UDES DIFF/ PLT) neutrophils 72 % normal Not Available [address], [address], 02/27/2025 22:28:51 02/27/20 25 02/27/2025 CBC (INCL UDES DIFF/ PLT) lymphocytes 20.6 % normal Not Available [address], [address], 02/27/2025 22:28:51 02/27/20 25 02/27/2025 CBC (INCL UDES DIFF/ PLT) monocytes 5.4 % normal Not Available [address], [address], 02/27/2025 22:28:51 02/27/20 25 02/27/2025 CBC (INCL UDES DIFF/ PLT) eosinophils 1.7 % normal Not Available [address] [address] [place], [address], 02/27/2025 22:28:51 02/27/20 25 02/27/2025 CBC (INCL UDES DIFF/ PLT) basophils 0.3 % normal Not Available [facility] [address] [place], [address], 02/27/2025 22:28:51 02/27/20 25 02/27/2025 HEPAT ITIS B SURFA CE ANTIG EN W/REF L CONFI RM hepatitis B surface antigen NON-RE ACTIVE non-re active normal For addit ional infor amy raphael, sabrina e refer to http: //[facility] ra[facility].que stdia gnost ics.c om/fa q/FAQ 202 (This link is being provi ded for infor matio nal/ educa jhonathan l purpo ses only. ) Not Available [facility] [address], [address], 02/27/2025 22:28:52 02/27/20 25 02/27/2025 HEPAT ITIS [...] a test for HCV RNA (test code 53033 ) is sugge sted. For addit ional infor amy raphael pleas e refer to http: //[facility] n.que stdia gnost ics.c om/fa q/FAQ 22v1 (This link is being provi ded for infor matio nal/ educa jhonathan l purpo ses only. ) Not Available [facility] [address] [address] [place], [address], 02/27/2025 22:28:53 02/27/20 25 02/27/2025 RUBEL LA [...] with rubel la virus . Not Available [email or web address] [facility] [address], [place], [address], 02/27/2025 22:28:53 02/27/2002/27/2025 HIV 1/2 ANTIG EN/AN [...] less than 2 years old. Not Available [address] [address] [place], [address], 02/27/2025 22:28:54 02/27/20 25 02/27/2025 RPR (DX) W/REF L TITER AND T. PALLI DUM AB, IA RPR (DX) w/refl titer and confirmatory testing NON-RE ACTIVE non-re active normal No labor atory evide nce of syphi lis. If recen t expos ure is suspe cted, submi t a new sampl e in 2-4 weeks . Not Available [facility] [address] [place], [address], 02/27/2025 22:28:55 02/27/20 25 02/27/2025 ANTIB EFREN [...] alloi mmuni zed pregn benjamin. Not Available [address] [place], [address], 02/27/2025 22:28:56 02/27/20 25 02/27/2025 ABO GROUP AND RH TYPE ABO group O Not Available [facility] [address] [address] [place], [address], 02/27/2025 22:28:57 02/27/20 25 02/27/2025 ABO GROUP AND RH TYPE Rh type RH(D) POSITI VE For addit ional infor sabrina roth e refer to http: //[facility] hayley lesterQue stDia gnost ics.c om/fa q/FAQ 111 (This link is being provi ded for infor amy trujillo/ educcatracho ring l purpo ses only. ) Not Available [facility] [address], [place], [address], 02/27/2025 22:28:57 02/27/20 25 02/27/2025 DRUG MONIT OR, PANEL 1, SCREE N, URINE amphetamines NEGATI VE NG/mL <500 See Note A See Note A Not Available [facility] [address], [place], [address], 02/27/2025 22:28:58 02/27/20 25 02/27/2025 DRUG MONIT OR, PANEL 1, SCREE N, URINE barbiturates NEGATI VE NG/mL <300 See Note A See Note A Not Available [facility] [address], [place], [address], 02/27/2025 22:28:58 02/27/20 25 02/27/2025 DRUG MONIT OR, PANEL 1, SCREE N, URINE benzodiazepi duane NEGATI VE NG/mL <100 See Note A See Note A Not Available [facility] [address], [place], [address], 02/27/2025 22:28:58 02/27/2002/27/2025 DRUG MONIT OR, PANEL 1, SCREE N, URINE cocaine metabolite NEGATI VE NG/mL <150 See Note A See Note A Not Available [facility] [address], [place], [address], 02/27/2025 22:28:58 02/27/20 25 02/27/2025 DRUG MONIT OR, PANEL 1, SCREE N, URINE marijuana metabolite NEGATI VE NG/mL <20 See Note A See Note A Not Available [facility] [address], [place], [address], 02/27/2025 22:28:58 02/27/20 25 02/27/2025 DRUG MONIT OR, PANEL 1, SCREE N, URINE methadone metabolite NEGATI VE NG/mL <100 See Note A See Note A Not Available [facility] [address], [place], [address], 02/27/2025 22:28:58 02/27/20 25 02/27/2025 DRUG MONIT OR, PANEL 1, SCREE N, URINE opiates NEGATI VE NG/mL <100 See Note A See Note A Not Available [address], [place], [address], 02/27/2025 22:28:58 02/27/20 25 02/27/2025 DRUG MONIT OR, PANEL 1, SCREE N, URINE oxycodone NEGATI VE NG/mL <100 See Note A See Note A Not Available [address] [address], [place], [address], 02/27/2025 22:28:58 02/27/20 25 02/27/2025 DRUG MONIT OR, PANEL 1, SCREE N, URINE phencyclidin e NEGATI VE NG/mL <25 See Note A See Note A Not Available [address], [place], [address], 02/27/2025 22:28:58 02/27/20 25 02/27/2025 DRUG MONIT OR, PANEL 1, SCREE N, URINE creatinine 108.1 mg/dL > or = 20.0 Not Available [address], [place], [address], 02/27/2025 22:28:58 02/27/20 25 02/27/2025 DRUG MONIT OR, PANEL 1, SCREE N, URINE pH 7.7 4.5-9. 0 Not Available [address] [address] [address], [place], [address], 02/27/2025 22:28:58 02/27/20 25 02/27/2025 DRUG MONIT OR, PANEL 1, SCREE N, URINE oxidant NEGATI VE mcg/m L <200 Not Available [address], [place], [address], 02/27/2025 22:28:58 02/27/20 25 02/27/2025 DRUG MONIT [...] M-F, 8am to 10pm EST Not Available [address] [address] [place], [address], 02/27/2025 22:28:59 02/27/2002/27/2025 CULTU RE, URINE , ROUTI NE culture, urine, routine SEE NOTE CULTU RE, URINE , ROUTI NE Micro Numbe r: [id number] Test Statu s: Final Speci men Sourc e: Urine Speci men Quali ty: Adequ ate Resul t: No Growt h Not Available [address] [address] [place], [address], 02/27/2025 22:28:59 02/27/2003/08/2025 THINP REP TIS PAP (REFL ) HPV MRNA E6/E7 clinical information: normal Pregn ant Not Available [facility] [address] [address] [place], [address], 03/08/2025 08:16:51 02/27/2003/08/2025 THINP REP TIS PAP (REFL ) HPV MRNA E6/E7 LMP: normal NONE GIVEN Not Available [facility] [address] [address] [place], [address], 03/08/2025 08:16:51 02/27/20 25 03/08/2025 THINP REP TIS PAP (REFL ) HPV MRNA E6/E7 prev. Pap: normal NONE GIVEN Not Available [address], [address], 03/08/2025 08:16:51 02/27/2003/08/2025 THINP REP TIS PAP (REFL ) HPV MRNA E6/E7 prev. BX: normal NONE GIVEN Not Available [address] [place], [address], 03/08/2025 08:16:51 02/27/2003/08/2025 THINP REP TIS PAP (REFL ) HPV MRNA E6/E7 source: normal Cervi x, Endoc ervix Not Available [address], [address], 03/08/2025 08:16:51 02/27/2003/08/2025 THINP REP TIS PAP (REFL ) HPV MRNA E6/E7 statement of adequacy: normal Satis facto ry for evalu ation . Endoc ervic al/tr ansfo rmati on zone compo nent prese nt. Not Available [address], [address], 03/08/2025 08:16:51 02/27/2003/08/2025 THINP REP TIS PAP (REFL ) HPV MRNA E6/E7 general categorizati on: abnormal Cytol ogy Resul ts: Epith elial Cell Abnor malit y Not Available [address], [address], 03/08/2025 08:16:51 02/27/2003/08/2025 THINP REP TIS PAP (REFL ) HPV MRNA E6/E7 interpretati on/result: abnormal Low Grade Squam ous Intra epith elial Lesio n (LSIL ) Not Available [address] [place], [address], 03/08/2025 08:16:51 02/27/20 25 03/08/2025 THINP REP TIS PAP (REFL ) HPV MRNA E6/E7 comment: normal This Pap test has been evalu ated with sherice mayen techn ology . Sugge st clini rajiv corre latio n and follo w-up as clini solomon appro priat e Not Available [address] [address] [place], [address], 03/08/2025 08:16:51 02/27/20 25 03/08/2025 THINP REP TIS PAP (REFL ) HPV MRNA E6/E7 cytotechnolo gist: normal KMS, CT( CP) CT Scree pat locat ion: [address] [place] [address] Not Available [address] [address] [place], [address], 03/08/2025 08:16:51 02/27/20 25 03/08/2025 THINP REP TIS PAP (REFL ) HPV MRNA E6/E7 pathologist: normal Alisha monique M.D., Board Certi fied in Anato jesús Patho logy and Cytop athol ogy. Phone : [phone] (elec troni c signa ture) Patho logis t Relea se Date/ Time: 03/06 09:25 AM Not Available [address] [address] [place], [address], 03/08/2025 08:16:51 02/27/20 25 03/08/2025 THINP REP [...] clini rajiv infor amy raphael. Not Available [address] [address] [place], [address], 03/08/2025 08:16:51 02/27/20 25 03/08/2025 HPV MRNA [...] infor sabrina roth e refer to http: //[facility] hayley raphael.patience stdia gnost ics.c om/fa q/FAQ 129v1 (This link if provi ded for infor amy raphael/ educa jhonathan l purpo ses only. ) Not Available [address] [address] [place], [address], 03/08/2025 08:16:53 02/27/20 25 02/26/2025 CT + NG + TV, DNA, urine /swab Chlamydia negati ve Not Available [facility] ([facility]) [address] [place] [address], [address], 02/25/2025 18:55:26 02/27/20 25 02/26/2025 CT + NG + TV, DNA, urine /swab Gonorrhea negati ve Not Available [facility] ([facility]) [address] [place] [address], [address], 02/25/2025 18:55:26 02/27/20 25 02/26/2025 CT + NG + TV, DNA, urine /swab Trichomonas negati ve Not Available [facility] ([facility]) [address] [place], [address], 02/25/2025 18:55:26 07/02/20 25 07/02/2025 CBC WBC 11.1 x10 4.0-10 .5 high Not Available [facility] [address] [facility] [address] [address], [place], [address], 07/02/2025 10:24:57 07/02/20 25 07/02/2025 CBC RBC 3.96 x10 3.50-5 .50 Not Available [facility] [address] [facility] [address], [place], [address], 07/02/2025 10:24:57 07/02/20 25 07/02/2025 CBC HGB 12.0 g/dL 12.0-1 6.0 Not Available [facility] [address] [facility], [place], [address], 07/02/2025 10:24:57 07/02/20 25 07/02/2025 CBC HCT 37.1 % 37.0-4 7.0 Not Available [facility] [address] [facility], [place], [address], 07/02/2025 10:24:57 07/02/20 25 07/02/2025 CBC MCV 93.8 fL 80.0-9 9.9 Not Available [facility] [address] [facility] Nuria [facility] 1, [place], [address], 07/02/2025 10:24:57 07/02/20 25 07/02/2025 CBC MCH 30.4 pg 27.0-3 2.0 Not Available [facility] [address]ones [facility] 1, [place], [address], 07/02/2025 10:24:57 07/02/2007/02/2025 CBC MCHC 32.4 g/dL 32.0-3 6.0 Not Available [facility] [address] [facility] 1, [place], [address], 07/02/2025 10:24:57 07/02/2007/02/2025 CBC RDW 12.9 % 11.5-1 4.5 Not Available [facility] [address] [facility] 1, [place], [address], 07/02/2025 10:24:57 07/02/2007/02/2025 CBC plt 227.7 x10 140.0- 451.0 Not Available [facility] [address] [facility] Qu[facility] 1, [place], [address], 07/02/2025 10:24:57 07/02/2007/02/2025 CBC lymphocytes % 15.5 % 20.0-5 0.0 low Not Available [facility] [address]ones [facility] 1, [place], [address], 07/02/2025 10:24:57 07/02/2007/02/2025 CBC granulcytes % 78.3 % 30.0-7 0.0 high Not Available [facility] [address] [facility] 1, [place], [address], 07/02/2025 10:24:57 07/02/2007/02/2025 CBC monocytes % 4.2 % 2.0-16 .0 Not Available [facility] [address] [facility] 1, [place], [address], 07/02/2025 10:24:57 07/02/2007/02/2025 CBC granulcytes# 8.7 x10 Not Jenny ilable [facility] [address] [facility] 1, [place], [address], 07/02/2025 10:24:57 07/02/20 25 07/02/2025 CBC lymphocytes # 1.7 x10 Not Available [facility] [address] [facility] 1, [place], [address], 07/02/2025 10:24:57 07/02/20 25 07/02/2025 CBC monocytes # 0.5 x10 Not Avai lable [facility] [address] [facility] 1, [place], [address], 07/02/2025 10:24:57 07/02/20 25 07/02/2025 GLUCO SE SCREE N glucose screen 135.0 mg/dL Not Available [facility] [address] [facility] 1, [place], [address], 07/02/2025 10:30:30 07/11/20 25 07/11/2025 GLUCO SE SCREE N glucose screen 133.0 mg/dL Not Available [facility] [address] [facility] 1, [place], [address], 07/11/2025 10:37:03 08/27/20 25 09/02/2025 CULTU RE, GROUP B STREP WITH SUSCE PTIBI LITY culture, group B strep with susceptibili ty SEE NOTE abnormal CULTU RE, GROUP B STREP WITH SUSCE PTIBI LITY Micro Numbe r: [id number] Test Statu s: Final Speci men Sourc [...] lower vagin a and rectu m (thro [facility] the anal sphin cter) . Group B [...] See Thera py Comme nts Not Available [facility] [address] [address], [place], [address], 09/02/2025 14:26:34 09/06/2009/06/2025 CBC WBC 9.9 x10 4.0-10 .5 Not Available [facility] [address] [facility] [address] [address], [place], [address], 09/06/2025 09:32:26 09/06/2009/06/2025 CBC RBC 4.29 x10 3.50-5 .50 Not Available [place] [address] [facility] 1, [place], [address], 09/06/2025 09:32:26 09/06/20 25 09/06/2025 CBC HGB 12.6 g/dL 12.0-1 6.0 Not Available [facility] [address] [facility], [place], [address], 09/06/2025 09:32:26 09/06/20 25 09/06/2025 CBC HCT 39.4 % 37.0-4 7.0 Not Available [facility] [address] [facility] Nuria [facility] 1, [place], [address], 09/06/2025 09:32:26 09/06/20 25 09/06/2025 CBC MCV 91.9 fL 80.0-9 9.9 Not Available [facility] [address] Quiñones [facility] 1, [place], [address], 09/06/2025 09:32:26 09/06/20 25 09/06/2025 CBC MCH 29.3 pg 27.0-3 2.0 Not Available [facility] [address] Qu[place] [facility] 1, [place], [address], 09/06/2025 09:32:26 09/06/20 25 09/06/2025 CBC MCHC 31.9 g/dL 32.0-3 6.0 low Not Available [facility] [address] Qu[address]ñones [facility] 1, [place], [address], 09/06/2025 09:32:26 09/06/20 25 09/06/2025 CBC RDW 13.2 % 11.5-1 4.5 Not Available [facility] [address] [facility] 1, [place], [address], 09/06/2025 09:32:26 09/06/20 25 09/06/2025 CBC plt 216.3 x10 140.0- 451.0 Not Available [facility] [facility] [address] [facility] 1, [place], [address], 09/06/2025 09:32:26 09/06/20 25 09/06/2025 CBC lymphocytes % 21.4 % 20.0-5 0.0 Not Available [facility] [address] Qu[address] [facility] 1, [place], [address], 09/06/2025 09:32:26 09/06/20 25 09/06/2025 CBC granulcytes % 70.6 % 30.0-7 0.0 high Not Available [place] [facility] [address] [facility] 1, [place], [address], 09/06/2025 09:32:26 09/06/20 25 09/06/2025 CBC monocytes % 5.8 % 2.0-16 .0 Not Available [facility] [address] Chapel[facility] [facility], [place], [address], 09/06/2025 09:32:26 09/06/2009/06/2025 CBC granulcytes# 7.0 x10 Not Jenny ilable [facility] [address] [address], [place], [address], 09/06/2025 09:32:26 09/06/2009/06/2025 CBC lymphocytes # 2.1 x10 Not Available [facility] [address] [address], [place], [address], 09/06/2025 09:32:26 09/06/20 25 09/06/2025 CBC monocytes # 0.6 x10 Not Avai lable [facility] [address] [address], [place], [address], 09/06/2025 09:32:26 09/06/2009/06/2025 CMP (FEMA LE) glucose 84.0 mg/dL 60.0-9 9.0 Not Available [facility] [address] [address], [place], [address], 09/06/2025 09:46:52 09/06/2009/06/2025 CMP (FEMA LE) BUN (blood urea nitrogen) 5.0 mg/dL 10.0-2 6.0 low Not Available [facility] [address] [facility] [address] [address], [place], [address], 09/06/2025 09:46:52 09/06/2009/06/2025 CMP (FEMA LE) creatinine (serum) 0.5 mg/dL 0.4-1. 5 Not Available [facility] [address] [facility] [address] [address], [place], [address], 09/06/2025 09:46:52 09/06/20 25 09/06/2025 CMP (FEMA LE) BUN/creatini ne ratio 10.00 ratio Not Available [facility] [address] [facility], [place], [address], 09/06/2025 09:46:52 09/06/20 25 09/06/2025 CMP (FEMA LE) eGFR calculated 154.0 Not Available [facility] [address] [facility] [address], [place], [address], 09/06/2025 09:46:52 09/06/2009/06/2025 CMP (FEMA LE) total protein 7.0 g/dL 6.0-8. 5 Not Available [facility] [address] [facility] [address], [place], [address], 09/06/2025 09:46:52 09/06/20 25 09/06/2025 CMP (FEMA LE) total bilirubin 0.6 mg/dL 0.2-1. 3 Not Available [facility] [address] [facility] [address], [place], [address], 09/06/2025 09:46:52 09/06/20 25 09/06/2025 CMP (FEMA LE) albumin 4.1 g/dL 3.5-5. 5 Not Available [facility] [address] [facility] [address], [place], [address], 09/06/2025 09:46:52 09/06/20 25 09/06/2025 CMP (FEMA LE) globulin 2.9 calc Not Available [facility] [address] [facility] [address], [place], [address], 09/06/2025 09:46:52 09/06/20 25 09/06/2025 CMP (FEMA LE) AST (SGOT) 33.0 U/L 0.0-46 .0 Not Available [facility] [address] [facility] [address], [place], [address], 09/06/2025 09:46:52 09/06/20 25 09/06/2025 CMP (FEMA LE) altv (SGPT) 22.0 U/L 13.0-6 9.0 normal Not Available [facility] [address] [facility] [address], [place], [address], 09/06/2025 09:46:52 09/06/20 25 09/06/2025 CMP (FEMA LE) A/G ratio 1.4 ratio Not Available [facility] [address] [facility] [address], [place], [address], 09/06/2025 09:46:52 09/06/20 25 09/06/2025 CMP (FEMA LE) ALP phos 160.0 U/L 30.0-1 40.0 abnormal Not Available [facility] [address] [facility] Services 1, [place], [address], 09/06/2025 09:46:52 09/06/20 25 09/06/2025 CMP (FEMA LE) calcium 9.0 mg/dL 8.4-10 .5 Not Available [facility] [address] [facility] 1, [place], [address], 09/06/2025 09:46:52 09/06/20 25 09/06/2025 CMP (FEMA LE) sodium 137.0 mmol/ L 136.0- 145.0 Not Available [facility] [address] [facility], [place], [address], 09/06/2025 09:46:52 09/06/20 25 09/06/2025 CMP (FEMA LE) potassium 3.4 mmol/ L 3.5-5. 1 low Not Available [facility] [address] [facility] 1, [place], [address], 09/06/2025 09:46:52 09/06/2009/06/2025 CMP (FEMA LE) chloride 105.0 mmol/ L 98.0-1 10.0 normal Not Available [facility] [address] [facility], [place], [address], 09/06/2025 09:46:52 09/06/2009/06/2025 CMP (FEMA LE) C02 24.0 mmol/ L 22.0-3 1.0 Not Available [facility] [address] [facility], [place], [address], 09/06/2025 09:46:52 09/06/2009/06/2025 CMP (FEMA LE) anion gap 8.0 calc Not Available [facility] [address] [facility], [place], [address], 09/06/2025 09:46:52 09/06/2009/06/2025 CMP (FEMA LE) osmolality 279.9 calc Not Available [facility] [address] [facility], [place], [address], 09/06/2025 09:46:52 09/06/2009/06/2025 LIPID PROFI LE (FEMA LE) cholesterol 195.0 mg/dL 0.0-20 0.0 Not Available [facility] [address] [facility] 1, [place], [address], 09/06/2025 09:46:55 09/06/2009/06/2025 LIPID PROFI LE (FEMA LE) trig 114.0 mg/dL 0.0-15 0.0 Not Available [facility] [address] [facility], [place], [address], 09/06/2025 09:46:55 09/06/20 25 09/06/2025 LIPID PROFI LE (FEMA LE) HDL - direct 74.0 mg/dL >40.0 Not Available [facility] [address] [facility] 1, [place], [address], 09/06/2025 09:46:55 09/06/20 25 09/06/2025 LIPID PROFI LE (FEMA LE) VLDL - direct 22.8 mg/dL Not Available [facility] [address] [facility] 1, [place], [address], 09/06/2025 09:46:55 09/06/20 25 09/06/2025 LIPID PROFI LE (FEMA LE) LDL - direct 98.2 mg/dL 0.0-13 0.0 Not Available [place] [address] [facility], [place], [address], 09/06/2025 09:46:55 09/06/20 25 09/06/2025 TSH TSH 1.69 uIU/m L 0.49-3 .82 Not Available [place] [address] [facility] 1, [place], [address], 09/06/2025 10:02:31 09/06/20 25 09/06/2025 HBA1C hemaglobin A1C 5.4 4.2-6. 5 Not Available [place] [address] [facility] Nuria [facility] 1, [place], [address], 09/06/2025 12:51:07 02/19/20 25 02/12/2025 US, chadwick martinez, 1st trime ster No observ ation record ed. [email or web address] Not Available 02/19 09:09:34 04/25/20 25 04/18/2025 US, chadwick martinez, follo w-up No observ ation record ed. [email or web address] [facility] [address] [place], [address], 04/29/2025 09:24:34 05/11/20 25 05/07/2025 US, obste tric, 2nd trime ster No observ ation record ed. [address] [place], [address], 05/13/2025 17:57:21 07/05/20 25 07/02/2025 imagi ng/di agnos tic resul t No observ ation record ed. [facility] [address] [place], [address], 07/09/2025 10:35:54 Result Notes None recorded. Problems Name Problem SNOMED Code Status Onset Date Resolution Date Notes Provider Name and Address Organization Details Recorded Time Rheumatoid arthritis 44016602 Active 2022 KERWIN roper [facility] 5 14:16:25 Pain of knee region 4128790994 Completed 202301/24/2025 KERWIN roper [facility] 5 14:16:23 Family history of diabetes mellitus 556528978 Active 2023 KERWIN roper [facility] 5 14:16:18 Normal 80803919 Active 2024 TREBA NEUSCHWAN KAVITHA null, [facility] 5 10:22:35 Normal 88115207 Active 2024 TREBA NEUSCHWAN KAVITHA null, [facility] 5 10:22:35 Placenta previa partialis 17740194 Active 2024 Alvaro Angelo MD [address] [place], [address], [facility] 02:46:26 Low-lying placenta 062807019 Active 2024 Alvaro Angelo MD [address] [place] [address], [address], [facility], LAlisaCRemigio 11:36:47 Problem Notes None recorded. Procedures Surgical History Date Name Laterality Status Provider Name and Address Organization Details Recorded Time 02/27/20 25 Date of Last Pap Smear completed [facility] 09/02/2025 18:39:21 02/27/20 25 liquid based cervical cytology screening completed [facility], LRemigioLRemigioC. 09/02/2025 18:39:54 01/31/20 24 colposcopy completed [facility], LRemigioLRemigioCRemigio 01/24/2025 14:17:49 01/31/20 24 hysteroscopy completed [facility] L.L.CR[facility]io 01/24/2025 14:18:46 arthroscopy of left knee joint completed [facility], LRemigioLRemigioCRemigio 01/24/2025 14:17:01 cholecystectomy completed [facility] 01/24/2025 14:17:33 Imaging Results None recorded. Procedure Notes None recorded. Medical Equipment None Reported. Allergies Allergen ID Allergen Name Allergen Category Reaction Reaction Severity Criticality Documentation Date Start Date Code Code System Note Provider Name and Address Organization Details Recorded Time 35628 Bactrim medicatio n hives moderate Not available 05/21/2023 86994 9 RxNorm ROXI Vang [facility], VikiLRemigioCRemigio 5 15:30:03 09558 Product containin g penicilli n (product) medicatio n hives moderate Not available 05/21/2023 13060 8001 SNOMED TREBA MANFRED Vang [facility] LRemigioL.C. 5 15:30:03 80435 Augmentin medicatio n hives moderate Not available 01/24/2025 37631 2 RxNorm [facility] 5 14:19:18 43811 Celebrex medicatio n other moderate Not available 01/24/2025 73645 7 RxNorm TREBA NEUSCHWAHailey KAVITHA [facility] 5 15:30:03 36184 Substance with sulfonami de structure and antibacte rial mechanism of action (substanc e) medicatio n hives moderate Not available 04/18/2025 13450 8003 SNOMED TREBA TATYSCHWAHailey PLUMMER [facility] 5 15:30:03 17436 amoxicill in / clavulana te medicatio n hives Not available high 09/06/20252022 10442 RxNorm Yessy ates PCN and amoxi cilli n fine Not Available anna - External Data Service - prod 5 07:58:34 54534 celecoxib medicatio n Not available Not available high 09/06/20252022 69421 7 RxNorm Not Available anna - External Data Service - prod 5 07:58:34 60676 amoxicill in medicatio n Not available Not available low 09/27/20252023 723 RxNorm Not Available anna - External Data Service - prod 5 13:40:54 96450 clavulani c acid Not available Not available Not available low 09/27/20252023 40482 RxNorm Not Available anna - External Data Service - prod 5 13:40:54 18628 sulfameth oxazole medicatio n Not available Not available Not available 09/27/20252023 68380 RxNorm Not Available anna - External Data Service - prod 5 13:40:54 15441 trimethop rim medicatio n Not available Not available Not available 09/27/20252023 37431 RxNorm Not Available [place] - External Data Service - prod 13:40:54 [...] Tablet; Not Available Not Available Not Available [facility] 10/[address] Martinez; 0; Recorded 09/24/20 [...] Updated DateTime 5 170.18 cm 38 kg/m2 932078. 15 g 18 /min 85 /min 98 % 98.4 [degF] 122/70 mm[Hg] KERWIN DUNAWAY [facility] 5 10:58:00 Social History Question Answer Notes LastModified by Organizat ion Details LastModified Time Tobacco Smoking Status Former Smoker ANTONIO roper [facility] 01/24/2023 10:09:31 Are You Blind Or Do You Have Difficulty Seeing? No Information not available 01/24/2025 Are You Deaf Or Do You Have Serious Difficulty Hearing? No [email or web address] Information not available 01/24/2023 When Did You Quit Smoking? 1-5yearssinc elastcigaret te [email or web address] Information not available 01/24/2023 Do You Work [...] independently without assistance or assistive devices? YESWOREST [email or web address] Information not available 01/24/2023 Do you have difficulty doing errands alone? No [email or web address] Information not available 01/24/2023 Are you able to care for yourself independently? 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 No [email or web address] Information not available 01/24/2023 Do you or have you ever used e-cigarettes or vape? Former user of electronic cigarettes Information not available 01/24/2025 Mental Status Question Answer Note LastModified by Organization D etails LastModified Time Do you have difficulty concentrating, remembering or making decisions? No [email or web address] Information no t available 01/24/2023 Family History [...] Transfusion N Breast Cancer N COPD N Lung Disease N Hypothyroidism N Depression N Defects or Inherited Disease [...] Recorded Time IPV 09/28/2000 completed Susan roper, [facility] 10/09/2024 09:35:10 MMR 04/11/1996 completed Susan Wilson null, [facility] 10/09/2024 09:35:10 MMR 09/28/2000 completed Susan Katie roper, [facility] 10/09/2024 09:35:10 Tdap 11/17/2010 [facility] 10/09/2024 09:35:10 Tdap 02/20/2015 completed Susan Wilson null, [facility] 10/09/2024 09:35:10 Hep B, unspecified formulation 1995 completed Susan Wilson null, [facility] 10/09/2024 09:35:10 Hep B, unspecified formulation 02/28/1996 completed Susan Wilson null [facility] 10/09/2024 09:35:10 Hep B, unspecified formulation 1995 completed Susan Wilson null, [facility] 10/09/2024 09:35:10 OPV, trivalent 1995 completed Susan Wilson null, [facility] 10/09/2024 09:35:10 OPV, trivalent 02/28/1996 completed Susan Katie null [facility] 10/09/2024 09:35:10 OPV, trivalent 1995 completed Susansae Sabae null, [facility] 10/09/2024 09:35:10 DTP-Hib 11/29/1996 completed Susan Wilson null, [facility] 10/09/2024 09:35:10 DTP-Hib 1995 completed Susan Wilson null, [facility] 10/09/2024 09:35:10 DTP-Hib 02/28/1996 completed Susan Wilson null, [facility] 10/09/2024 09:35:10 DTP-Hib 1995 completed Susan Wilson null, [facility] 10/09/2024 09:35:10 DTaP 09/28/2000 completed Susan Wilson null, [facility] 10/09/2024 09:35:10 Past Encounters Encounter ID Performer Location Encounter Start Date Encounter Closed Date Diagnosis/Indication Diagnosis SNOMED-CT Code Diagnosis ICD10 Code Diagnosis IMO Codes Diagnosis Note [id number] Alvaro Angelo MD [facility] ([facility]) [address] [place] [phone] 08/27/2025 10:35:57 08/27/2025 11:34:41 Normal 07583919 Z34.83 Gestation period, 36 weeks 16436046 Z3A.36 5309701 [id number] Alvaro Angelo MD [facility] ([facility]) [address] [place] [phone] 5 09/03/2025 10:32:59 09/03/2025 11:48:15 Multigravida 452946642 Z34.83 64540923 Gestation period, 37 weeks 20995043 Z3A.37 6952571 [id number] Giovani Yu MD [facility] ([facility]) [address] [place] [phone] 5 09/06/2025 07:58:00 09/11/2025 03:58:55 Adult health examination 621078006 Z00.00 0547384 [id number] LISSETH SETHI [facility] ([facility]) [address] [place], [place] [phone] 5 09/06/2025 07:58:35 09/11/2025 03:58:55 Physical examination 9459112 Z00.00 [id number] [id number] Alvaro Angelo MD [facility]) [address] [place], [place] [phone] 5 09/10/2025 13:45:56 09/10/2025 14:47:57 Multigravida 153646540 Z34.83 57685885 Gestation period, 38 weeks 61968660 Z3A.38 1235428 [id number] Alvaro Angelo MD [facility]) [address] [place] [phone] 5 09/17/2025 10:35:44 09/17/2025 11:14:06 Normal in multigravida 7999238956 17550 Z34.80 30754464 Gestation period, 39 weeks 19098389 Z3A.39 3263349 Health Concerns Section Related Observation LastModified by Organization Detai ls LastModified Time None Recorded Concern Status LastModified by Organization Details LastModified Time None Recorded Payers Encounter Date Sequence Insurance Name Policy Number Policy Fierro Covered Member ID Fierro Member ID Guarantor Name 09/17/2025 1 CHRISSY-HILTON (PPO) [id number] Jeffy Zimmerman [id number] Jeffy Zimmerman Notes Date Note Type [...] noted in the HPI Alvaro Angelo MD [address] [place] [address], [phone], [facility], [facility] 09/17/2025 11:13:41 OBGyn Episode Ob Episode Information Episode Created Date Number of Fetuses Patient Bloodtype Patient rh Status Prepregnancy Weight lbs Domestic Partner Domestic Partner Phone Father Name Business Associate Status 01/25/20 1 O Positive Damián OPEN [...] Resolution Snomed Code Not e Normal 02/25/2025 [id number] Harshil Calculation Initial Harshil Date Initial Exam [...] Weight in lbs Pre/Post Dialysis Refused Weight 227.444273588641 BP Diastolic BP Location Tested BP Systolic [...] Weight in lbs Pre/Post Dialysis Refused Weight 221.936406258492 BP Diastolic BP Location Tested BP Systolic [...] Weight in lbs Pre/Post Dialysis Refused Weight 221.656131407915 BP Diastolic BP Location Tested BP Systolic [...] Weight in lbs Pre/Post Dialysis Refused Weight 225.888757845975 BP Diastolic BP Location Tested BP Systolic [...] Weight in lbs Pre/Post Dialysis Refused Weight 230.076663975086 BP Diastolic BP Location Tested BP Systolic BP Type 62 L arm 106 Fetus Heart Rate Present A 148 Present Fetus Movement A Yes Comments heartburn Flowsheet Date 06/18/2025 Sierra Score Blood Edema Fundus Height Fundus Units Glucose Ketones Leukocytes Nitrite Labor Signs Protein Cervic Dilation Cervic Effacement Cervic Station Type Weight in lbs Pre/Post Dialysis Refused Weight 229.8036716391 BP Diastolic BP Location Tested BP Systolic [...] Weight in lbs Pre/Post Dialysis Refused Weight 234.541080616259 BP Diastolic BP Location Tested BP Systolic [...] Weight in lbs Pre/Post Dialysis Refused Weight 232.489738711710 BP Diastolic BP Location Tested BP Systolic [...] Weight in lbs Pre/Post Dialysis Refused Weight 236.894813373387 BP Diastolic BP Location Tested BP Systolic BP Type 76 120 Fetus Heart Rate Present A 144 Present Fetus Movement A Yes Comments mild swelling, heartburn int ermittent Flowsheet Date 08/13/2025 Sierra Score Blood Edema Fundus Height Fundus Units Glucose Ketones Leukocytes Nitrite Labor Signs Protein Cervic Dilation Cervic Effacement Cervic Station 34 cm none trace [place] neg Type Weight in lbs Pre/Post Dialysis Refused Weight 239.234172963908 BP Diastolic BP Location Tested BP Systolic [...] Weight in lbs Pre/Post Dialysis Refused Weight 241.336045205776 BP Diastolic BP Location Tested BP Systolic [...] Weight in lbs Pre/Post Dialysis Refused Weight 241.169506776471 BP Diastolic BP Location Tested BP Systolic [...] Weight in lbs Pre/Post Dialysis Refused Weight 243.072920236955 BP Diastolic BP Location Tested BP Systolic BP Type 70 120 Fetus Heart Rate Present Fetus Movement Comments Flowsheet Date 09/10/2025 Sierra Score Blood Edema Fundus Height Fundus Units Glucose Ketones Leukocytes Nitrite Labor Signs Protein Cervic Dilation Cervic Effacement Cervic Station none trace Negative [place] neg 2cm 70% -3 Type Weight in lbs Pre/Post Dialysis Refused Weight 243.262940054787 BP Diastolic BP Location Tested BP Systolic [...] Weight in lbs Pre/Post Dialysis Refused Weight 242.022737340184 BP Diastolic BP Location Tested BP Systolic BP Type 70 122 Fetus Heart Rate Present A 164 Present Fetus Movement A Yes Comments low back pain, vaginal press ure, swelling in hands/feet Flowsheet Date 09/24/2025 Sierra Score Blood Edema Fundus Height Fundus Units Glucose Ketones Leukocytes Nitrite Labor Signs Protein Cervic Dilation Cervic Effacement Cervic Station none 1+ Negative [place] trace 3cm 70% -4 Type Weight in lbs Pre/Post Dialysis Refused Weight 244.908081330292 BP Diastolic BP Location Tested BP Systolic [...] Weight in lbs Pre/Post Dialysis Refused Weight 248.946953301318 BP Diastolic BP Location Tested BP Systolic [...] ated Date of Delivery false Thalassemia (Lao, British, Mediterranean, Or Background): MCV < 80 false Neural Tube Defect (Meningomyelocele, Spina Bifi da, Or Anencephaly) false Congenital Heart Defect false Down Syndrome false Maco-Sachs (eg, Protestant, Cajun, Malay-[place]) f alse Dustin Disease false Sickle Cell Disease Or Trait () false Hemophilia Or Other Blood Disorders false Muscular Dystrophy false Cystic Fibrosis false [place]'s Chorea false Intellectual Disability/Autism false If Yes, [...]
--- OUTSIDE RECORDS SUMMARY | 2025-09-30 23:39 | XMS_ITS | Continuity of Care Document ---
Author Organization [facility] - Fabio Myers [facility] Rafael, LFelisha, [facility] ([facility]) Address [address] [place] [address] Assessment No assessment recorded. Plan of Treatment Reminders Order Date Submit Date Provider Last Modified By Organization Details Last Modified Time Details Appointments POST-PART UM VISIT 2025 11:00A Eric Angelo MD Not available Not available Not available Lab streptoco ccus group B, culture, unspecifi ed specimen 2024 1104 025 [email or web address], [address] [place] [address] [address], [address] [place], [address], 09/02/2025 14:26:34 Referral None recorded. Procedures None recorded. Surgeries None recorded. Imaging None recorded. Medication Orders None recorded. Patient TargetsNo targets recorded. Patient InstructionsNo instructions recorded. Reason for Referral None Reported. Results Created Date Observation Date Name Description Value Unit Range Abnormal Flag Note LastModifiedBy Organization Detail LastModifiedTime 02/27/2002/27/2025 URINA LYSIS , COMPL ETE color YELLOW yellow normal Not Available [facility] [address] [address] [place], [address], 02/27/2025 22:28:50 02/27/20 25 02/27/2025 URINA LYSIS , COMPL ETE appearance CLEAR clear normal Not Available [facility] [address] [place], [address], 02/27/2025 22:28:50 02/27/2002/27/2025 URINA LYSIS , COMPL ETE specific gravity 1.012 1.001- 1.035 normal Not Available [address], [address], 02/27/2025 22:28:50 02/27/20 25 02/27/2025 URINA LYSIS , COMPL ETE pH 7.5 5.0-8. 0 normal Not Available [address], [address], 02/27/2025 22:28:50 02/27/20 25 02/27/2025 URINA LYSIS , COMPL ETE glucose NEGATI VE negati ve normal Not Available [address], [address], 02/27/2025 22:28:50 02/27/20 25 02/27/2025 URINA LYSIS , COMPL ETE bilirubin NEGATI VE negati ve normal Not Available [address], [address], 02/27/2025 22:28:50 02/27/20 25 02/27/2025 URINA LYSIS , COMPL ETE ketones NEGATI VE negati ve normal Not Available [address], [address], 02/27/2025 22:28:50 02/27/20 25 02/27/2025 URINA LYSIS , COMPL ETE occult blood NEGATI VE negati ve normal Not Available [address], [address], 02/27/2025 22:28:50 02/27/20 25 02/27/2025 URINA LYSIS , COMPL ETE protein NEGATI VE negati ve normal Not Available [address], [address], 02/27/2025 22:28:50 02/27/20 25 02/27/2025 URINA LYSIS , COMPL ETE nitrite NEGATI VE negati ve normal Not Available [address], [address], 02/27/2025 22:28:50 02/27/20 25 02/27/2025 URINA LYSIS , COMPL ETE leukocyte esterase TRACE negati ve abnormal Not Available [address], [address], 02/27/2025 22:28:50 02/27/20 25 02/27/2025 URINA LYSIS , COMPL ETE WBC NONE SEEN /hpf < or = 5 normal Not Available [address], [address], 02/27/2025 22:28:50 02/27/20 25 02/27/2025 URINA LYSIS , COMPL ETE RBC NONE SEEN /hpf < or = 2 normal Not Available [address], [address], 02/27/2025 22:28:50 02/27/20 25 02/27/2025 URINA LYSIS , COMPL ETE squamous epithelial cells 6-10 /hpf < or = 5 abnormal Not Available [address], [address], 02/27/2025 22:28:50 02/27/20 25 02/27/2025 URINA LYSIS , COMPL ETE bacteria NONE SEEN /hpf none seen normal Not Available [address], [address], 02/27/2025 22:28:50 02/27/20 25 02/27/2025 URINA LYSIS , COMPL ETE hyaline cast NONE SEEN /lpf none seen normal Not Available [address], [address], 02/27/2025 22:28:50 02/27/20 25 02/27/2025 URINA LYSIS , COMPL ETE note This urine was jim zed for the prese nce of WBC, RBC, bacte terry, casts , and other forme d eleme nts. Only those eleme nts seen were repor bruce. Not Available [address], [address], 02/27/2025 22:28:50 02/27/20 25 02/27/2025 CBC (INCL UDES DIFF/ PLT) white blood cell count 8.9 thous and/u L 3.8-10 .8 normal Not Available [facility] [address], [address], 02/27/2025 22:28:51 02/27/20 25 02/27/2025 CBC (INCL UDES DIFF/ PLT) red blood cell count 4.42 erick on/uL 3.80-5 .10 normal Not Available [address], [address], 02/27/2025 22:28:51 02/27/20 25 02/27/2025 CBC (INCL UDES DIFF/ PLT) hemoglobin 13.2 g/dL 11.7-1 5.5 normal Not Available [address], [address], 02/27/2025 22:28:51 02/27/20 25 02/27/2025 CBC (INCL UDES DIFF/ PLT) hematocrit 41.4 % 35.0-4 5.0 normal Not Available [facility] [address], [address], 02/27/2025 22:28:51 02/27/20 25 02/27/2025 CBC (INCL UDES DIFF/ PLT) MCV 93.7 fL 80.0-1 00.0 normal Not Available [facility] [address], [address], 02/27/2025 22:28:51 02/27/20 25 02/27/2025 CBC (INCL UDES DIFF/ PLT) MCH 29.9 pg 27.0-3 3.0 normal Not Available [address], [address], 02/27/2025 22:28:51 02/27/20 25 02/27/2025 CBC (INCL [...] nt's clini rajiv condi tion. Not Available [address], [address], 02/27/2025 22:28:51 02/27/20 25 02/27/2025 CBC (INCL UDES DIFF/ PLT) RDW 12.5 % 11.0-1 5.0 normal Not Available [address], [address], 02/27/2025 22:28:51 02/27/20 25 02/27/2025 CBC (INCL UDES DIFF/ PLT) platelet count 294 thous and/u L 140-40 0 normal Not Available [address], [address], 02/27/2025 22:28:51 02/27/20 25 02/27/2025 CBC (INCL UDES DIFF/ PLT) MPV 11.6 fL 7.5-12 .5 normal Not Available [address], [address], 02/27/2025 22:28:51 02/27/20 25 02/27/2025 CBC (INCL UDES DIFF/ PLT) absolute neutrophils 6408 cells /uL 1500-7 800 normal Not Available [facility] [address], [place], [address], 02/27/2025 22:28:51 02/27/20 25 02/27/2025 CBC (INCL UDES DIFF/ PLT) absolute lymphocytes 1833 cells /uL 850-39 00 normal Not Available [facility] [address], [address], 02/27/2025 22:28:51 02/27/20 25 02/27/2025 CBC (INCL UDES DIFF/ PLT) absolute monocytes 481 cells /uL 200-95 0 normal Not Available [facility] [address], [address], 02/27/2025 22:28:51 02/27/20 25 02/27/2025 CBC (INCL UDES DIFF/ PLT) absolute eosinophils 151 cells /uL 15-500 normal Not Available [address], [address], 02/27/2025 22:28:51 02/27/20 25 02/27/2025 CBC (INCL UDES DIFF/ PLT) absolute basophils 27 cells /uL 0-200 normal Not Available [facility] [address], [address], 02/27/2025 22:28:51 02/27/20 25 02/27/2025 CBC (INCL UDES DIFF/ PLT) neutrophils 72 % normal Not Available [address], [address], 02/27/2025 22:28:51 02/27/20 25 02/27/2025 CBC (INCL UDES DIFF/ PLT) lymphocytes 20.6 % normal Not Available [facility] [address], [address], 02/27/2025 22:28:51 02/27/20 25 02/27/2025 CBC (INCL UDES DIFF/ PLT) monocytes 5.4 % normal Not Available [facility] [address], [address], 02/27/2025 22:28:51 02/27/20 25 02/27/2025 CBC (INCL UDES DIFF/ PLT) eosinophils 1.7 % normal Not Available [facility] [address], [address], 02/27/2025 22:28:51 02/27/20 25 02/27/2025 CBC (INCL UDES DIFF/ PLT) basophils 0.3 % normal Not Available [facility] - [address] [place], [address], 02/27/2025 22:28:51 02/27/20 25 02/27/2025 HEPAT ITIS B SURFA CE ANTIG EN W/REF L CONFI RM hepatitis B surface antigen NON-RE ACTIVE non-re active normal For addit ional infor amy raphael, sabrina e refer to http: //[facility] n.que stdia gnost ics.c om/fa q/FAQ 202 (This link is being provi ded for infor matio nal/ educa jhonathan l purpo ses only. ) Not Available [facility] [address], [address], 02/27/2025 22:28:52 02/27/20 25 02/27/2025 HEPAT ITIS [...] a test for HCV RNA (test code 88757 ) is sugge sted. For addit ional infor matio n pleas e refer to http: //[facility] n.que stdia gnost ics.c om/fa q/FAQ 22v1 (This link is being provi ded for infor matio nal/ educa jhonathan l purpo ses only. ) Not Available [facility] [address], [place], [address], 02/27/2025 22:28:53 02/27/20 25 02/27/2025 RUBEL LA [...] la virus . Not Available [facility] [address] [address], [place], [address], 02/27/2025 22:28:53 02/27/20 25 02/27/2025 HIV 1/2 [...] matio n pleas e refer to http: //[facility] ahyley raphael.que stdia gnost ics.c om/fa q/FAQ 106 (This link is being provi ded for infor amy trujillo/ educa jhonathan l purpo ses only. ) The perfo rmanc e of this assay has not been clini solomon valid ated in patie nts less than 2 years old. Not Available [facility] [address], [address], 02/27/2025 22:28:54 02/27/20 25 02/27/2025 RPR (DX) W/REF L TITER AND T. PALLI DUM AB, IA RPR (DX) w/refl titer and confirmatory testing NON-RE ACTIVE non-re active normal No labor atory evide nce of syphi lis. If recen t expos ure is suspe cted, submi t a new sampl e in 2-4 weeks . Not Available [facility] [address], [address], 02/27/2025 22:28:55 02/27/20 25 02/27/2025 ANTIB EFREN [...] alloi mmuni zed pregn benjamin. Not Available [facility] [address] [place], [address], 02/27/2025 22:28:56 02/27/20 25 02/27/2025 ABO GROUP AND RH TYPE ABO group O Not Available [facility] [address] [place], [address], 02/27/2025 22:28:57 02/27/20 25 02/27/2025 ABO GROUP AND RH TYPE Rh type RH(D) POSITI VE For addit ional infor sabrina roth e refer to http: //divina Ruelasia gnost ics.c om/fa q/FAQ 111 (This link is being provi ded for infor amy trujillo/ inna darling only. ) Not Available [facility] [address], [place], [address], 02/27/2025 22:28:57 02/27/20 25 02/27/2025 DRUG MONIT OR, PANEL 1, SCREE N, URINE amphetamines NEGATI VE NG/mL <500 See Note A See Note A Not Available [facility] [address], [place], [address], 02/27/2025 22:28:58 02/27/20 25 02/27/2025 DRUG MONIT OR, PANEL 1, SCREE N, URINE barbiturates NEGATI VE NG/mL <300 See Note A See Note A Not Available [facility] [address], [place], [address], 02/27/2025 22:28:58 02/27/20 25 02/27/2025 DRUG MONIT OR, PANEL 1, SCREE N, URINE benzodiazepi duane NEGATI VE NG/mL <100 See Note A See Note A Not Available [facility] [address], [place], [address], 02/27/2025 22:28:58 02/27/20 25 02/27/2025 DRUG MONIT OR, PANEL 1, SCREE N, URINE cocaine metabolite NEGATI VE NG/mL <150 See Note A See Note A Not Available [facility] [address], [place], [address], 02/27/2025 22:28:58 02/27/20 25 02/27/2025 DRUG MONIT OR, PANEL 1, SCREE N, URINE marijuana metabolite NEGATI VE NG/mL <20 See Note A See Note A Not Available [facility] [address], [place], [address], 02/27/2025 22:28:58 02/27/20 25 02/27/2025 DRUG MONIT OR, PANEL 1, SCREE N, URINE methadone metabolite NEGATI VE NG/mL <100 See Note A See Note A Not Available [address] [address], [place], [address], 02/27/2025 22:28:58 02/27/20 25 02/27/2025 DRUG MONIT OR, PANEL 1, SCREE N, URINE opiates NEGATI VE NG/mL <100 See Note A See Note A Not Available [facility] [address], [place], [address], 02/27/2025 22:28:58 02/27/20 25 02/27/2025 DRUG MONIT OR, PANEL 1, SCREE N, URINE oxycodone NEGATI VE NG/mL <100 See Note A See Note A Not Available [address] [address], [place], [address], 02/27/2025 22:28:58 02/27/20 25 02/27/2025 DRUG MONIT OR, PANEL 1, SCREE N, URINE phencyclidin e NEGATI VE NG/mL <25 See Note A See Note A Not Available [address], [place], [address], 02/27/2025 22:28:58 02/27/20 25 02/27/2025 DRUG MONIT OR, PANEL 1, SCREE N, URINE creatinine 108.1 mg/dL > or = 20.0 Not Available [facility] [address] [address], [place], [address], 02/27/2025 22:28:58 02/27/2002/27/2025 DRUG MONIT OR, PANEL 1, SCREE N, URINE pH 7.7 4.5-9. 0 Not Available [address] [address], [place], [address], 02/27/2025 22:28:58 02/27/20 25 02/27/2025 DRUG MONIT OR, PANEL 1, SCREE N, URINE oxidant NEGATI VE mcg/m L <200 Not Available [address] [address] [place], [address], 02/27/2025 22:28:58 02/27/20 25 02/27/2025 DRUG MONIT [...] presu mptiv e; based only on tripp stewart metho ds, and they have not been confi rmed by a defin itive metho d. Healt hcare Provi ders needi ng Inter preta tion yanci tance , pleas e conta ct us at 1.877 .40.R XTOX (1.87 [phone] [phone] ) M-F, 8am to 10pm EST Not Available [address], [place], [address], 02/27/2025 22:28:59 02/27/20 25 02/27/2025 CULTU RE, URINE , ROUTI NE culture, urine, routine SEE NOTE CULTU RE, URINE , ROUTI NE Micro Numbe r: [id number] Test Statu s: Final Speci men Sourc e: Urine Speci men Quali ty: Adequ ate Resul t: No Growt h Not Available [facility] [address] [address] [place], [address], 02/27/2025 22:28:59 02/27/20 25 03/08/2025 THINP REP TIS PAP (REFL ) HPV MRNA E6/E7 clinical information: normal Pregn ant Not Available [facility] [address] [address] [place], [address], 03/08/2025 08:16:51 02/27/20 25 03/08/2025 THINP REP TIS PAP (REFL ) HPV MRNA E6/E7 LMP: normal NONE GIVEN Not Available [address], [address], 03/08/2025 08:16:51 02/27/20 25 03/08/2025 THINP REP TIS PAP (REFL ) HPV MRNA E6/E7 prev. Pap: normal NONE GIVEN Not Available [address], [address], 03/08/2025 08:16:51 02/27/2003/08/2025 THINP REP TIS PAP (REFL ) HPV MRNA E6/E7 prev. BX: normal NONE GIVEN Not Available [address], [address], 03/08/2025 08:16:51 02/27/2003/08/2025 THINP REP TIS PAP (REFL ) HPV MRNA E6/E7 source: normal Cervi x, Endoc ervix Not Available [address], [address], 03/08/2025 08:16:51 02/27/2003/08/2025 THINP REP TIS PAP (REFL ) HPV MRNA E6/E7 statement of adequacy: normal Satis facto ry for evalu ation . Endoc ervic al/tr ansfo rmati on zone compo nent prese nt. Not Available [address], [address], 03/08/2025 08:16:51 02/27/2003/08/2025 THINP REP TIS PAP (REFL ) HPV MRNA E6/E7 general categorizati on: abnormal Cytol ogy Resul ts: Epith elial Cell Abnor malit y Not Available [address], [address], 03/08/2025 08:16:51 02/27/20 25 03/08/2025 THINP REP TIS PAP (REFL ) HPV MRNA E6/E7 interpretati on/result: abnormal Low Grade Squam ous Intra epith elial Lesio n (LSIL ) Not Available [address] [address] [place], [address], 03/08/2025 08:16:51 02/27/20 25 03/08/2025 THINP REP TIS PAP (REFL ) HPV MRNA E6/E7 comment: normal This Pap test has been evalu ated with compu ter yanci bruce techn ology . Sugge st clini rajiv corre latio n and follo w-up as clini solomon appro priat e Not Available [address] [address] [place], [address], 03/08/2025 08:16:51 02/27/20 25 03/08/2025 THINP REP TIS PAP (REFL ) HPV MRNA E6/E7 cytotechnolo gist: normal KMS, CT( CP) CT Scree pat locat ion: [address] [place] [address] Not Available [address] [address] [place], [address], 03/08/2025 08:16:51 02/27/20 25 03/08/2025 THINP REP TIS PAP (REFL ) HPV MRNA E6/E7 pathologist: normal Alisha monique M.D., Board Certi fied in Anato jesús Patho logy and Cytop athol ogy. Phone : [phone] (elec troni c signa ture) Patho logis t Relea se Date/ Time: 03/06 09:25 AM Not Available [address] [address] [place], [address], 03/08/2025 08:16:51 02/27/20 25 03/08/2025 THINP REP [...] and curre nt clini rajiv infor amy n. Not Available [address] [address] [place], [address], 03/08/2025 08:16:51 02/27/20 25 03/08/2025 HPV MRNA E6/E7 HPV MRNA E6/E7 Not Detect ed not detect ed normal Metho dolog y: Trans cript ion-M ediat ed Ampli ficat ion This assay detec ts E6/E7 viral messe nger RNA (mRNA ) from 14 high- risk HPV types (16,1 8,31, 33,35 ,39,4 5,51, 52,56 ,58,5 9,66, 68). Cervi rajvi sourc es are requi red for HPV [...] amy raphael plekeyon e refer to http: //[facility] hayley raphael.patience stdia gnost ics.c om/fa q/FAQ 129v1 (This link if provi ded for infor amy raphael/ inna monique purpo ses only. ) Not Available [facility] [address] [place], [address], 03/08/2025 08:16:53 02/27/20 25 02/26/2025 CT + NG + TV, DNA, urine /swab Chlamydia negati ve Not Available [facility] ([facility]) [facility] [place], [address], 02/25/2025 18:55:26 02/27/20 25 02/26/2025 CT + NG + TV, DNA, urine /swab Gonorrhea negati ve Not Available [facility] ([facility]) [address] [place], [address], 02/25/2025 18:55:26 02/27/20 25 02/26/2025 CT + NG + TV, DNA, urine /swab Trichomonas negati ve Not Available [facility] ([facility]) [address] [place], [address], 02/25/2025 18:55:26 07/02/20 25 07/02/2025 CBC WBC 11.1 x10 4.0-10 .5 high Not Available [facility] [address] [facility] [address], [place], [address], 07/02/2025 10:24:57 07/02/20 25 07/02/2025 CBC RBC 3.96 x10 3.50-5 .50 Not Available [facility] [address] [facility] 1, [place], [address], 07/02/2025 10:24:57 07/02/20 25 07/02/2025 CBC HGB 12.0 g/dL 12.0-1 6.0 Not Available [facility] [address] [facility] 1, [place], [address], 07/02/2025 10:24:57 07/02/20 25 07/02/2025 CBC HCT 37.1 % 37.0-4 7.0 Not Available [facility] [address] [facility] 1, [place], [address], 07/02/2025 10:24:57 07/02/20 25 07/02/2025 CBC MCV 93.8 fL 80.0-9 9.9 Not Available [facility] [address] [facility], [place], [address], 07/02/2025 10:24:57 07/02/20 25 07/02/2025 CBC MCH 30.4 pg 27.0-3 2.0 Not Available [facility] [address], [place], [address], 07/02/2025 10:24:57 07/02/2007/02/2025 CBC MCHC 32.4 g/dL 32.0-3 6.0 Not Available [facility] [address] [facility] 1, [place], [address], 07/02/2025 10:24:57 07/02/2007/02/2025 CBC RDW 12.9 % 11.5-1 4.5 Not Available [facility] [address] [facility] 1, [place], [address], 07/02/2025 10:24:57 07/02/20 25 07/02/2025 CBC plt 227.7 x10 140.0- 451.0 Not Available [facility] [address] [facility] reading[facility] Qu[facility]ones [facility] 1, [place], [address], 07/02/2025 10:24:57 07/02/20 25 07/02/2025 CBC lymphocytes % 15.5 % 20.0-5 0.0 low Not Available [facility] [address] [facility] 1, [place], [address], 07/02/2025 10:24:57 07/02/20 25 07/02/2025 CBC granulcytes % 78.3 % 30.0-7 0.0 high Not Available [facility] [address] [facility] 1, [place], [address], 07/02/2025 10:24:57 07/02/20 25 07/02/2025 CBC monocytes % 4.2 % 2.0-16 .0 Not Available [facility] [address] [facility] [address], [place], [address], 07/02/2025 10:24:57 07/02/20 25 07/02/2025 CBC granulcytes# 8.7 x10 Not Jenny ilable [facility] [address] [facility] [address], [place], [address], 07/02/2025 10:24:57 07/02/20 25 07/02/2025 CBC lymphocytes # 1.7 x10 Not Available [facility] [address] [facility] [address], [place], [address], 07/02/2025 10:24:57 07/02/20 25 07/02/2025 CBC monocytes # 0.5 x10 Not Avai lable [facility] [address] [address], [place], [address], 07/02/2025 10:24:57 07/02/20 25 07/02/2025 GLUCO SE SCREE N glucose screen 135.0 mg/dL Not Available [facility] [address] [facility] [address], [place], [address], 07/02/2025 10:30:30 07/11/20 25 07/11/2025 GLUCO SE SCREE N glucose screen 133.0 mg/dL Not Available [facility] [address] [address], [place], [address], 07/11/2025 10:37:03 08/27/20 25 09/02/2025 CULTU RE, GROUP B STREP WITH SUSCE PTIBI LITY culture, group B strep with susceptibili ty SEE NOTE abnormal CULTU RE, GROUP B STREP WITH SUSCE PTIBI LITY Micro Numbe r: [id number] Test Statu s: Final Speci men [...] See Thera py Comme nts Not Available [facility] [address] [place], [address], 09/02/2025 14:26:34 02/19/20 25 02/12/2025 US, obste tric, 1st trime ster No observ ation record ed. [email or web address] Not Available 02/19 09:09:34 04/25/20 25 04/18/2025 US, obste tric, follo w-up No observ ation record ed. [email or web address] [facility] [address] [place], [address], 04/29/2025 09:24:34 05/11/20 25 05/07/2025 US, obste tric, 2nd trime ster No observ ation record ed. [facility] [address] [place], [address], 05/13/2025 17:57:21 07/05/20 25 07/02/2025 imagi ng/di agnos tic resul t No observ ation record ed. [facility] [address] [place], [address], 07/09/2025 10:35:54 Result Notes None recorded. Problems Name Problem SNOMED Code Status Onset Date Resolution Date Notes Provider Name and Address Organization Details Recorded Time Rheumatoid arthritis 98788585 Active 2022 KERWINReymundo roper [facility] 5 14:16:25 Pain of knee region 5473659217 Completed 202301/24/2025 KERWIN roper [facility] 5 14:16:23 Family history of diabetes mellitus 410444433 Active 2023 KERWIN roper [facility] 5 14:16:18 Normal 27920307 Active 2024 ROXI Vang [facility] 5 10:22:35 Normal 30874046 Active 2024 ROXI NEUSCHWAHailey PLUMMER null, [facility] 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 5 02:46:26 Low-lying placenta 277857605 Active 2024 Alvaro Angelo MD [address] [place] [address], [phone], [facility] 5 11:36:47 Problem Notes None recorded. Procedures Surgical History Date Name Laterality Status Provider Name and Address Organization Details Recorded Time 02/27/20 Date of Last Pap Smear completed KERWINMARLY BERRYY [facility] 09/02/2025 18:39:21 02/27/20 liquid based cervical cytology screening [facility] 09/02/2025 18:39:54 01/31/20 24 colposcopy completed [facility] LRemigioL.CRemigio 01/24/2025 14:17:49 01/31/20 24 hysteroscopy completed [facility] 01/24/2025 14:18:46 arthroscopy of left knee joint completed [facility], LRemigioLRemigioCRemigio 01/24/2025 14:17:01 cholecystectomy completed [facility] L.L.CRemigio 01/24/2025 14:17:33 Imaging Results None recorded. Procedure Notes None recorded. Medical Equipment None Reported. Allergies Allergen ID Allergen Name Allergen Category Reaction Reaction Severity Criticality Documentation Date Start Date Code Code System Note Provider Name and Address Organization Details Recorded Time 97341 Bactrim medicatio n hives moderate Not available 05/21/2023 80031 9 RxNorm TREBA NEUSCHWAN [facility] 5 15:30:03 46161 Product containin g penicilli n (product) medicatio n hives moderate Not available 05/21/2023 69940 8001 SNOMED TREBA NEUSCHWAN [facility] 5 15:30:03 71085 Augmentin medicatio n hives moderate Not available 01/24/2025 37135 2 RxNorm [facility] 5 14:19:18 75184 Celebrex medicatio n other moderate Not available 01/24/2025 03993 7 RxNorm TREBA NEUSCHWAN [facility] 5 15:30:03 97591 Substance with sulfonami de structure and antibacte rial mechanism of action (substanc e) medicatio n hives moderate Not available 04/18/2025 94584 8003 SNOMED TREBA NEUSCHWAN [facility] 5 15:30:03 14487 amoxicill in / clavulana te medicatio n hives Not available high 09/06/20252022 95313 RxNorm Eyssy ates PCN and amoxi cilli n fine Not Available anna - External Data Service - prod 5 07:58:34 72626 celecoxib medicatio n Not available Not available high 09/06/20252022 65482 7 RxNorm Not Available anna - External Data Service - prod 5 07:58:34 22609 amoxicill in medicatio n Not available Not available low 09/27/20252023 723 RxNorm Not Available anna - External Data Service - prod 5 13:40:54 99468 clavulani c acid Not available Not available Not available low 09/27/20252023 02616 RxNorm Not Available anna - External Data Service - prod 5 13:40:54 45201 sulfameth oxazole medicatio n Not available Not available Not available 09/27/20252023 65143 RxNorm Not Available anna - External Data Service - prod 13:40:54 57107 trimethop rim medicatio n Not available Not available Not available 09/27/20252023 76115 RxNorm Not Available anna - External Data [...] Details Last Updated DateTime 5 170.18 cm 37.7 kg/m2 598331. 76 g 97 % 80 /min 98.5 [degF] 18 /min 126/72 mm[Hg] KERWIN DUNAWAY [facility] 5 11:10:12 Social History Question Answer Notes LastModified by Organizat ion Details LastModified Time Tobacco Smoking Status Former Smoker [facility]/2023 10:09:31 Are You Blind Or Do You Have Difficulty Seeing? No Information not available 01/24/2025 Are You Deaf Or Do You Have Serious Difficulty Hearing? No [email or web address] Information not available 01/24/2023 When Did You Quit Smoking? 1-5yearssinc elastcigaret te Information not available 01/24/2023 Do You Work In Healthcare? No Information not available 01/24/2025 What Was The Date Of Your Most Recent Tobacco Screening? 03/26/2025 [email or web address] Information not available 03/26/2025 What Is Your Relationship Status? Information not available 01/24/2025 Have You Recently Traveled Abroad? No [email or web address] Information not available 01/24/2023 Do You Have Difficulty Walking Or Climbing Stairs? No [email or web address] Information not available 01/24/2023 Sex: Unknown Functional [...] you have difficulty doing errands alone? No [email or web address] Information not available 01/24/2023 Are you able to care for yourself independently? Yes [email or web address] Information not available 01/24/2023 What is your [...] difficulty concentrating, remembering or making decisions? No [email or web address] Information no t available 01/24/2023 Family History Relationship Description Onset Age of this Age Resolved Age Notes LastModified by Organization Details LastModified Time Father Diabetes mellitus [email or web address] Not available 2023 09:43:45 Paternal Grandmother Malignant [...] Details Recorded Time IPV 09/28/2000 kaushal roper [facility] 10/09/2024 09:35:10 [facility] 04/11/1996 kaushal roper [facility] 10/09/2024 09:35:10 [facility] 09/28/2000 kaushal roper [facility] 10/09/2024 09:35:10 Tdap 11/17/2010 completed Susan Wilson null, [facility] 10/09/2024 09:35:10 Tdap 02/20/2015 completed Susan Wilson null, [facility] 10/09/2024 09:35:10 Hep B, unspecified formulation 1995 completed Susan Wilson null, [facility] 10/09/2024 09:35:10 Hep B, unspecified formulation 02/28/1996 completed Susan Wilson null, [facility] 10/09/2024 09:35:10 Hep B, unspecified formulation 1995 completed Susan Wilson null, [facility] 10/09/2024 09:35:10 OPV, trivalent 1995 completed Susan Wilson null, [facility] 10/09/2024 09:35:10 OPV, trivalent 02/28/1996 completed Susan Wilson null, [facility] 10/09/2024 09:35:10 OPV, trivalent 1995 completed Susan Wilson null, [facility] 10/09/2024 09:35:10 DTP-Hib 11/29/1996 completed Susan Wilson null, [facility] 10/09/2024 09:35:10 DTP-Hib 1995 completed Susan Wilson null, [facility] 10/09/2024 09:35:10 DTP-Hib 02/28/1996 completed Susan Wilson null, [facility] 10/09/2024 09:35:10 DTP-Hib 1995 completed Susanstuart Sabasherry roper [facility] 10/09/2024 09:35:10 DTaP 09/28/2000 completed Susan Wilson [email or web address] [facility] 10/09/2024 09:35:10 Past Encounters Encounter ID Performer Location Encounter Start Date Encounter Closed Date Diagnosis/Indication Diagnosis SNOMED-CT Code Diagnosis ICD10 Code Diagnosis IMO Codes Diagnosis Note [id number] Alvaro Angelo MD [facility] ([facility]) [address] [place] [address] [id number] 07/30/2025 10:40:36 07/30/2025 11:28:24 Normal 65259150 Z34.83 Gestation period, 32 weeks 2093900 Z3A.32 [id number] Alvaro Angelo MD [facility]) [address] [place] [phone] [id number] 08/13/2025 10:44:33 08/13/2025 11:38:15 Normal 24344673 Z34.83 Gestation period, 34 weeks 37781896 Z3A.34 [id number] Alvaro Angelo MD [facility] ([facility]) [address] [place] [address] [phone] 08/27/2025 10:35:57 08/27/2025 11:34:41 Normal 96084042 Z34.83 Gestation period, 36 weeks 07982086 Z3A.36 2924232 Health Concerns Section Related Observation LastModified by Organization Detai ls LastModified Time None Recorded Concern Status LastModified by Organization Details LastModified Time None Recorded Payers Encounter Date Sequence Insurance Name Policy Number Policy Fierro Covered Member ID Fierro Member ID Guarantor Name 08/27/2025 1 [employer]ETTE (PPO) [id number] Jeffy Zimmerman [id number] Jeffy Zimmerman Notes Date Note Type [...] noted in the HPI Alvaro Angelo MD [address] [place] [address], [id number], [facility] 08/27/2025 11:34:14 OBGyn Episode Ob Episode Information Episode Created Date Number of Fetuses Patient Bloodtype Patient rh Status Prepregnancy Weight lbs Domestic Partner Domestic Partner Phone Father Name Film Splicer Status 01/25/20 1 O Positive Damián OPEN [...] Resolution Snomed Code Not e Normal 02/25/2025 [id number] Harshil Calculation Initial Harshil Date Initial Exam [...] Weight in lbs Pre/Post Dialysis Refused Weight 227.528000257463 BP Diastolic BP Location Tested BP Systolic [...] Weight in lbs Pre/Post Dialysis Refused Weight 221.167812047972 BP Diastolic BP Location Tested BP Systolic [...] Weight in lbs Pre/Post Dialysis Refused Weight 221.841850593012 BP Diastolic BP Location Tested BP Systolic [...] Weight in lbs Pre/Post Dialysis Refused Weight 225.396252403916 BP Diastolic BP Location Tested BP Systolic [...] Weight in lbs Pre/Post Dialysis Refused Weight 230.466928693800 BP Diastolic BP Location Tested BP Systolic BP Type 62 L arm 106 Fetus Heart Rate Present A 148 Present Fetus Movement A Yes Comments heartburn Flowsheet Date 06/18/2025 Sierra Score Blood Edema Fundus Height Fundus Units Glucose Ketones Leukocytes Nitrite Labor Signs Protein Cervic Dilation Cervic Effacement Cervic Station Type Weight in lbs Pre/Post Dialysis Refused Weight 229.9228173763 BP Diastolic BP Location Tested BP Systolic [...] Weight in lbs Pre/Post Dialysis Refused Weight 234.260445447371 BP Diastolic BP Location Tested BP Systolic [...] Weight in lbs Pre/Post Dialysis Refused Weight 232.601004399047 BP Diastolic BP Location Tested BP Systolic [...] Weight in lbs Pre/Post Dialysis Refused Weight 236.535760106778 BP Diastolic BP Location Tested BP Systolic [...] Weight in lbs Pre/Post Dialysis Refused Weight 239.482549433758 BP Diastolic BP Location Tested BP Systolic [...] Weight in lbs Pre/Post Dialysis Refused Weight 241.073967530852 BP Diastolic BP Location Tested BP Systolic [...] Weight in lbs Pre/Post Dialysis Refused Weight 241.459452444983 BP Diastolic BP Location Tested BP Systolic [...] Weight in lbs Pre/Post Dialysis Refused Weight 243.649342792290 BP Diastolic BP Location Tested BP Systolic BP Type 70 120 Fetus Heart Rate Present Fetus Movement Comments Flowsheet Date 09/10/2025 Sierra Score Blood Edema Fundus Height Fundus Units Glucose Ketones Leukocytes Nitrite Labor Signs Protein Cervic Dilation Cervic Effacement Cervic Station none trace Negative Michael Mata neg 2cm 70% -3 Type Weight in lbs Pre/Post Dialysis Refused Weight 243.438342338661 BP Diastolic BP Location Tested BP Systolic [...] Weight in lbs Pre/Post Dialysis Refused Weight 242.799040725043 BP Diastolic BP Location Tested BP Systolic [...] Weight in lbs Pre/Post Dialysis Refused Weight 244.394851869551 BP Diastolic BP Location Tested BP Systolic [...] Weight in lbs Pre/Post Dialysis Refused Weight 248.477730342586 BP Diastolic BP Location Tested BP Systolic [...] Estim ated Date of Delivery false Thalassemia (Lebanese, Romanian, Mediterranean, Or Background): MCV < 80 false Neural Tube Defect (Meningomyelocele, Spina Bifi da, Or Anencephaly) false Congenital Heart Defect false Down Syndrome false Maco-Sachs (eg, Anabaptist, Cajun, Pakistani-[place]) f alse Dustin Disease false Sickle Cell Disease Or Trait () false Hemophilia Or Other Blood Disorders false Muscular Dystrophy false Cystic Fibrosis false Corozal's Chorea false Intellectual Disability/Autism false If Yes, [...]
[2025-09-30 23:40] VITALS: BP 150/88; PULSE 83; RESP 14; TEMP 36.3; O2SAT 100; BMI 35.4
--- OUTSIDE RECORDS SUMMARY | 2025-09-30 23:40 | XMS_ITS | Continuity of Care Document ---
Author Organization [facility] Fabio Myers [facility] [place], [place], [facility] ([facility]) Address [address] [place] [address] Assessment No assessment recorded. Plan of Treatment [...] ETE color YELLOW yellow normal Not Available [facility] [address] [place], [address], 02/27/2025 22:28:50 02/27/20 25 02/27/2025 URINA LYSIS , COMPL ETE appearance CLEAR clear normal Not Available [facility] [address] [place], [address], 02/27/2025 22:28:50 02/27/20 25 02/27/2025 URINA LYSIS , COMPL ETE specific gravity 1.012 1.001- 1.035 normal Not Available [facility] [address] [place], [address], 02/27/2025 22:28:50 02/27/20 25 02/27/2025 URINA LYSIS , COMPL ETE pH 7.5 5.0-8. 0 normal Not Available [address], [address], 02/27/2025 22:28:50 02/27/20 25 02/27/2025 URINA LYSIS , COMPL ETE glucose NEGATI VE negati ve normal Not Available [address], [address], 02/27/2025 22:28:50 02/27/20 25 02/27/2025 URINA LYSIS , COMPL ETE bilirubin NEGATI VE negati ve normal Not Available [address], [address], 02/27/2025 22:28:50 02/27/20 25 02/27/2025 URINA LYSIS , COMPL ETE ketones NEGATI VE negati ve normal Not Available [address], [address], 02/27/2025 22:28:50 02/27/20 25 02/27/2025 URINA LYSIS , COMPL ETE occult blood NEGATI VE negati ve normal Not Available [facility] [address], [address], 02/27/2025 22:28:50 02/27/20 25 02/27/2025 URINA LYSIS , COMPL ETE protein NEGATI VE negati ve normal Not Available [facility] [address], [address], 02/27/2025 22:28:50 02/27/20 25 02/27/2025 URINA LYSIS , COMPL ETE nitrite NEGATI VE negati ve normal Not Available [facility] [address], [address], 02/27/2025 22:28:50 02/27/20 25 02/27/2025 URINA LYSIS , COMPL ETE leukocyte esterase TRACE negati ve abnormal Not Available [address], [address], 02/27/2025 22:28:50 02/27/20 25 02/27/2025 URINA LYSIS , COMPL ETE WBC NONE SEEN /hpf < or = 5 normal Not Available [address], [address], 02/27/2025 22:28:50 02/27/20 25 02/27/2025 URINA LYSIS , COMPL ETE RBC NONE SEEN /hpf < or = 2 normal Not Available [address], [address], 02/27/2025 22:28:50 02/27/20 25 02/27/2025 URINA LYSIS , COMPL ETE squamous epithelial cells 6-10 /hpf < or = 5 abnormal Not Available [address], [address], 02/27/2025 22:28:50 02/27/20 25 02/27/2025 URINA LYSIS , COMPL ETE bacteria NONE SEEN /hpf none seen normal Not Available [address], [address], 02/27/2025 22:28:50 02/27/20 25 02/27/2025 URINA LYSIS , COMPL ETE hyaline cast NONE SEEN /lpf none seen normal Not Available [address], [address], 02/27/2025 22:28:50 02/27/20 25 02/27/2025 URINA LYSIS , COMPL ETE note This urine was jim zed for the prese nce of WBC, RBC, bacte terry, casts , and other forme d eleme nts. Only those eleme nts seen were repor bruce. Not Available [address], [address], 02/27/2025 22:28:50 02/27/20 25 02/27/2025 CBC (INCL UDES DIFF/ PLT) white blood cell count 8.9 thous and/u L 3.8-10 .8 normal Not Available [address], [address], 02/27/2025 22:28:51 02/27/20 25 02/27/2025 CBC (INCL UDES DIFF/ PLT) red blood cell count 4.42 erick on/uL 3.80-5 .10 normal Not Available [address], [address], 02/27/2025 22:28:51 02/27/20 25 02/27/2025 CBC (INCL UDES DIFF/ PLT) hemoglobin 13.2 g/dL 11.7-1 5.5 normal Not Available [address], [address], 02/27/2025 22:28:51 02/27/20 25 02/27/2025 CBC (INCL UDES DIFF/ PLT) hematocrit 41.4 % 35.0-4 5.0 normal Not Available [address], [address], 02/27/2025 22:28:51 02/27/20 25 02/27/2025 CBC (INCL UDES DIFF/ PLT) MCV 93.7 fL 80.0-1 00.0 normal Not Available [address], [address], 02/27/2025 22:28:51 02/27/20 25 02/27/2025 CBC (INCL UDES DIFF/ PLT) MCH 29.9 pg 27.0-3 3.0 normal Not Available [facility] [address], [address], 02/27/2025 22:28:51 02/27/20 25 02/27/2025 CBC (INCL [...] rajiv condi tion. Not Available [facility] [address], [address], 02/27/2025 22:28:51 02/27/20 25 02/27/2025 CBC (INCL UDES DIFF/ PLT) RDW 12.5 % 11.0-1 5.0 normal Not Available [facility] [address], [address], 02/27/2025 22:28:51 02/27/20 25 02/27/2025 CBC (INCL UDES DIFF/ PLT) platelet count 294 thous and/u L 140-40 0 normal Not Available [facility] [address], [address], 02/27/2025 22:28:51 02/27/20 25 02/27/2025 CBC (INCL UDES DIFF/ PLT) MPV 11.6 fL 7.5-12 .5 normal Not Available [facility] [address], [address], 02/27/2025 22:28:51 02/27/20 25 02/27/2025 CBC (INCL UDES DIFF/ PLT) absolute neutrophils 6408 cells /uL 1500-7 800 normal Not Available [facility] [address], [address], 02/27/2025 22:28:51 02/27/20 25 02/27/2025 CBC (INCL UDES DIFF/ PLT) absolute lymphocytes 1833 cells /uL 850-39 00 normal Not Available [address], [address], 02/27/2025 22:28:51 02/27/20 25 02/27/2025 CBC (INCL UDES DIFF/ PLT) absolute monocytes 481 cells /uL 200-95 0 normal Not Available [address], [address], 02/27/2025 22:28:51 02/27/20 25 02/27/2025 CBC (INCL UDES DIFF/ PLT) absolute eosinophils 151 cells /uL 15-500 normal Not Available [address], [address], 02/27/2025 22:28:51 02/27/20 25 02/27/2025 CBC (INCL UDES DIFF/ PLT) absolute basophils 27 cells /uL 0-200 normal Not Available [address], [address], 02/27/2025 22:28:51 02/27/20 25 02/27/2025 CBC (INCL UDES DIFF/ PLT) neutrophils 72 % normal Not Available [address], [address], 02/27/2025 22:28:51 02/27/20 25 02/27/2025 CBC (INCL UDES DIFF/ PLT) lymphocytes 20.6 % normal Not Available [address], [address], 02/27/2025 22:28:51 02/27/20 25 02/27/2025 CBC (INCL UDES DIFF/ PLT) monocytes 5.4 % normal Not Available [address], [address], 02/27/2025 22:28:51 02/27/20 25 02/27/2025 CBC (INCL UDES DIFF/ PLT) eosinophils 1.7 % normal Not Available [address] [address] [place], [address], 02/27/2025 22:28:51 02/27/20 25 02/27/2025 CBC (INCL UDES DIFF/ PLT) basophils 0.3 % normal Not Available [facility] [address] [place], [address], 02/27/2025 22:28:51 02/27/20 25 02/27/2025 HEPAT ITIS B SURFA CE ANTIG EN W/REF L CONFI RM hepatitis B surface antigen NON-RE ACTIVE non-re active normal For addit ional infor amy raphael, sabrina e refer to http: //[facility] raphael.que stdia gnost ics.c om/fa q/FAQ 202 (This link is being provi ded for infor matio nal/ educa jhonathan l purpo ses only. ) Not Available [facility] [address], [address], 02/27/2025 22:28:52 02/27/20 25 02/27/2025 HEPAT ITIS [...] a test for HCV RNA (test code 78178 ) is sugge sted. For addit ional infor amy raphael pleas e refer to http: //[facility] n.que stdia gnost ics.c om/fa q/FAQ 22v1 (This link is being provi ded for infor matio nal/ educa jhonathan l purpo ses only. ) Not Available [facility] [address] [address] [place], [address], 02/27/2025 22:28:53 02/27/20 25 02/27/2025 RUBEL LA [...] with rubel la virus . Not Available [facility] [address] [address], [place], [address], 02/27/2025 22:28:53 02/27/2002/27/2025 HIV 1/2 ANTIG EN/AN [...] less than 2 years old. Not Available [address] [address] [place], [address], 02/27/2025 22:28:54 02/27/20 25 02/27/2025 RPR (DX) W/REF L TITER AND T. PALLI DUM AB, IA RPR (DX) w/refl titer and confirmatory testing NON-RE ACTIVE non-re active normal No labor atory evide nce of syphi lis. If recen t expos ure is suspe cted, submi t a new sampl e in 2-4 weeks . Not Available [facility] [address] [place], [address], 02/27/2025 22:28:55 02/27/20 25 02/27/2025 ANTIB MAICOL [...] alloi mmuni zed pregn benjamin. Not Available [address] [place], [address], 02/27/2025 22:28:56 02/27/20 25 02/27/2025 ABO GROUP AND RH TYPE ABO group O Not Available [facility] [address] [address] [place], [address], 02/27/2025 22:28:57 02/27/20 25 02/27/2025 ABO GROUP AND RH TYPE Rh type RH(D) POSITI VE For addit ional infor sabrina roth e refer to http: //[facility] hayley lesterQue stDia gnost ics.c om/fa q/FAQ 111 (This link is being provi ded for infor amy trujillo/ educcatracho ring l purpo ses only. ) Not Available [facility] [address] [address] [address], [place], [address], 02/27/2025 22:28:57 02/27/20 25 02/27/2025 DRUG MONIT OR, PANEL 1, SCREE N, URINE amphetamines NEGATI VE NG/mL <500 See Note A See Note A Not Available [facility] [address] [address] [address], [place], [address], 02/27/2025 22:28:58 02/27/20 25 02/27/2025 DRUG MONIT OR, PANEL 1, SCREE N, URINE barbiturates NEGATI VE NG/mL <300 See Note A See Note A Not Available [facility] [address] [address] [address], [place], [address], 02/27/2025 22:28:58 02/27/20 25 02/27/2025 DRUG MONIT OR, PANEL 1, SCREE N, URINE benzodiazepi duane NEGATI VE NG/mL <100 See Note A See Note A Not Available [facility] [address] [address] [address], [place], [address], 02/27/2025 22:28:58 02/27/2002/27/2025 DRUG MONIT OR, PANEL 1, SCREE N, URINE cocaine metabolite NEGATI VE NG/mL <150 See Note A See Note A Not Available [facility] [address] [address] [address], [place], [address], 02/27/2025 22:28:58 02/27/20 25 02/27/2025 DRUG MONIT OR, PANEL 1, SCREE N, URINE marijuana metabolite NEGATI VE NG/mL <20 See Note A See Note A Not Available [facility] [address] [address] [address], [place], [address], 02/27/2025 22:28:58 02/27/20 25 02/27/2025 DRUG MONIT OR, PANEL 1, SCREE N, URINE methadone metabolite NEGATI VE NG/mL <100 See Note A See Note A Not Available [facility] [address] [address] [address], [place], [address], 02/27/2025 22:28:58 02/27/20 25 02/27/2025 DRUG MONIT OR, PANEL 1, SCREE N, URINE opiates NEGATI VE NG/mL <100 See Note A See Note A Not Available [address] [address] [address], [place], [address], 02/27/2025 22:28:58 02/27/20 25 02/27/2025 DRUG MONIT OR, PANEL 1, SCREE N, URINE oxycodone NEGATI VE NG/mL <100 See Note A See Note A Not Available [address] [address] [address], [place], [address], 02/27/2025 22:28:58 02/27/20 25 02/27/2025 DRUG MONIT OR, PANEL 1, SCREE N, URINE phencyclidin e NEGATI VE NG/mL <25 See Note A See Note A Not Available [address] [address] [address], [place], [address], 02/27/2025 22:28:58 02/27/20 25 02/27/2025 DRUG MONIT OR, PANEL 1, SCREE N, URINE creatinine 108.1 mg/dL > or = 20.0 Not Available [address] [address] [address], [place], [address], 02/27/2025 22:28:58 02/27/20 25 02/27/2025 DRUG MONIT OR, PANEL 1, SCREE N, URINE pH 7.7 4.5-9. 0 Not Available [address] [address] [address], [place], [address], 02/27/2025 22:28:58 02/27/20 25 02/27/2025 DRUG MONIT OR, PANEL 1, SCREE N, URINE oxidant NEGATI VE mcg/m L <200 Not Available [address] [address] [address], [place], [address], 02/27/2025 22:28:58 02/27/20 25 02/27/2025 DRUG MONIT [...] M-F, 8am to 10pm EST Not Available [address] [address] [place], [address], 02/27/2025 22:28:59 02/27/2002/27/2025 CULTU RE, URINE , ROUTI NE culture, urine, routine SEE NOTE CULTU RE, URINE , ROUTI NE Micro Numbe r: [id number] Test Statu s: Final Speci men Sourc e: Urine Speci men Quali ty: Adequ ate Resul t: No Growt h Not Available [address] [address] [place], [address], 02/27/2025 22:28:59 02/27/2003/08/2025 THINP REP TIS PAP (REFL ) HPV MRNA E6/E7 clinical information: normal Pregn ant Not Available [facility] [address] [address] [place], [address], 03/08/2025 08:16:51 02/27/2003/08/2025 THINP REP TIS PAP (REFL ) HPV MRNA E6/E7 LMP: normal NONE GIVEN Not Available [facility] [address] [address] [place], [address], 03/08/2025 08:16:51 02/27/20 25 03/08/2025 THINP REP TIS PAP (REFL ) HPV MRNA E6/E7 prev. Pap: normal NONE GIVEN Not Available [address], [address], 03/08/2025 08:16:51 02/27/2003/08/2025 THINP REP TIS PAP (REFL ) HPV MRNA E6/E7 prev. BX: normal NONE GIVEN Not Available [address] [place], [address], 03/08/2025 08:16:51 02/27/2003/08/2025 THINP REP TIS PAP (REFL ) HPV MRNA E6/E7 source: normal Cervi x, Endoc ervix Not Available [address], [address], 03/08/2025 08:16:51 02/27/2003/08/2025 THINP REP TIS PAP (REFL ) HPV MRNA E6/E7 statement of adequacy: normal Satis facto ry for evalu ation . Endoc ervic al/tr ansfo rmati on zone compo nent prese nt. Not Available [address], [address], 03/08/2025 08:16:51 02/27/2003/08/2025 THINP REP TIS PAP (REFL ) HPV MRNA E6/E7 general categorizati on: abnormal Cytol ogy Resul ts: Epith elial Cell Abnor malit y Not Available [address], [address], 03/08/2025 08:16:51 02/27/2003/08/2025 THINP REP TIS PAP (REFL ) HPV MRNA E6/E7 interpretati on/result: abnormal Low Grade Squam ous Intra epith elial Lesio n (LSIL ) Not Available [address] [place], [address], 03/08/2025 08:16:51 02/27/20 25 03/08/2025 THINP REP TIS PAP (REFL ) HPV MRNA E6/E7 comment: normal This Pap test has been evalu ated with sherice mayen techn ology . Sugge st clini rajiv corre latio n and follo w-up as clini solomon appro priat e Not Available [address] [address] [place], [address], 03/08/2025 08:16:51 02/27/20 25 03/08/2025 THINP REP TIS PAP (REFL ) HPV MRNA E6/E7 cytotechnolo gist: normal KMS, CT( CP) CT Scree pat locat ion: [address] [place] [address] Not Available [address] [address] [place], [address], 03/08/2025 08:16:51 02/27/20 25 03/08/2025 THINP REP TIS PAP (REFL ) HPV MRNA E6/E7 pathologist: normal Alisha monique M.D., Board Certi fied in [place] Patho logy and Cytop athol ogy. Phone : [phone] (elec troni c signa ture) Patho logis t Relea se Date/ Time: 03/06 09:25 AM Not Available [address] [address] [place], [address], 03/08/2025 08:16:51 02/27/20 25 03/08/2025 THINP REP [...] clini rajiv infor amy raphael. Not Available [address] [address] [place], [address], 03/08/2025 08:16:51 02/27/20 25 03/08/2025 HPV MRNA [...] roth e refer to http: //[facility] hayley raphael.patience stdia gnost ics.c om/fa q/FAQ 129v1 (This link if provi ded for infor amy raphael/ educa jhonathan l purpo ses only. ) Not Available [address] [address] [place], [address], 03/08/2025 08:16:53 02/27/20 25 02/26/2025 CT + NG + TV, DNA, urine /swab Chlamydia negati ve Not Available [facility] ([facility]) [address] [place] [address], [address], 02/25/2025 18:55:26 02/27/20 25 02/26/2025 CT + NG + TV, DNA, urine /swab Gonorrhea negati ve Not Available [facility] ([facility]) [address] [place] [address], [address], 02/25/2025 18:55:26 02/27/20 25 02/26/2025 CT + NG + TV, DNA, urine /swab Trichomonas negati ve Not Available [facility] ([facility]) [address] [place], [address], 02/25/2025 18:55:26 07/02/20 25 07/02/2025 CBC WBC 11.1 x10 4.0-10 .5 high Not Available [facility] [address] [facility] [address] [address], [place], [address], 07/02/2025 10:24:57 07/02/20 25 07/02/2025 CBC RBC 3.96 x10 3.50-5 .50 Not Available [facility] [address] [facility] [address], [place], [address], 07/02/2025 10:24:57 07/02/20 25 07/02/2025 CBC HGB 12.0 g/dL 12.0-1 6.0 Not Available [facility] [address] [facility], [place], [address], 07/02/2025 10:24:57 07/02/20 25 07/02/2025 CBC HCT 37.1 % 37.0-4 7.0 Not Available [facility] [address] [facility], [place], [address], 07/02/2025 10:24:57 07/02/20 25 07/02/2025 CBC MCV 93.8 fL 80.0-9 9.9 Not Available [facility] [address] [facility] [address] [facility] 1, [place], [address], 07/02/2025 10:24:57 07/02/20 25 07/02/2025 CBC MCH 30.4 pg 27.0-3 2.0 Not Available [facility] [address] [facility] 1, [place], [address], 07/02/2025 10:24:57 07/02/2007/02/2025 CBC MCHC 32.4 g/dL 32.0-3 6.0 Not Available [facility] [address] [facility] 1, [place], [address], 07/02/2025 10:24:57 07/02/2007/02/2025 CBC RDW 12.9 % 11.5-1 4.5 Not Available [facility] [address] [facility] 1, [place], [address], 07/02/2025 10:24:57 07/02/2007/02/2025 CBC plt 227.7 x10 140.0- 451.0 Not Available [facility] [address] [facility]undo Quiñones [facility] 1, [place], [address], 07/02/2025 10:24:57 07/02/2007/02/2025 CBC lymphocytes % 15.5 % 20.0-5 0.0 low Not Available [facility] [address] [facility] 1, [place], [address], 07/02/2025 10:24:57 07/02/2007/02/2025 CBC granulcytes % 78.3 % 30.0-7 0.0 high Not Available [facility] [address] [facility] county[facility]ymundo Quiñones [facility] 1, [place], [address], 07/02/2025 10:24:57 07/02/2007/02/2025 CBC monocytes % 4.2 % 2.0-16 .0 Not Available [facility] [address] [facility] county[facility]ymundo Quiñones [facility] 1, [place], [address], 07/02/2025 10:24:57 07/02/2007/02/2025 CBC granulcytes# 8.7 x10 Not Jenny ilable [facility] [address] [facility] 1, [place], [address], 07/02/2025 10:24:57 07/02/20 25 07/02/2025 CBC lymphocytes # 1.7 x10 Not Available [facility] [address] [facility] 1, [place], [address], 07/02/2025 10:24:57 07/02/20 25 07/02/2025 CBC monocytes # 0.5 x10 Not Avai lable [facility] [address] [facility] 1, [place], [address], 07/02/2025 10:24:57 07/02/20 25 07/02/2025 GLUCO SE SCREE N glucose screen 135.0 mg/dL Not Available [facility] [address] [facility] 1, [place], [address], 07/02/2025 10:30:30 02/19/20 25 02/12/2025 US, obste tric, 1st trime ster No observ ation record ed. [email or web address] Not Available 02/19 09:09:34 04/25/20 25 04/18/2025 US, obste tric, follo w-up No observ ation record ed. [email or web address] [facility] [address] [place], [address], 04/29/2025 09:24:34 05/11/20 25 05/07/2025 US, obste tric, 2nd trime ster No observ ation record ed. [facility] [address] [place], [address], 05/13/2025 17:57:21 07/05/20 25 07/02/2025 imagi ng/di agnos tic resul t No observ ation record ed. [facility] [address] [place], [address], 07/09/2025 10:35:54 Result Notes None recorded. Problems Name Problem SNOMED Code Status Onset Date Resolution Date Notes Provider Name and Address Organization Details Recorded Time Rheumatoid arthritis 23085141 Active 2022 KERWIN roper [facility]CRemigio 5 14:16:25 Pain of knee region 3850107980 Completed 202301/24/2025 KERWIN roper [facility]CRemigio 5 14:16:23 Family history of diabetes mellitus 781909640 Active 2023 KERWIN roper [facility].L[facility]CRemigio 5 14:16:18 Normal 92963253 Active 2024 ROXI Vang [facility] 5 10:22:35 Normal 46943316 Active 2024 ROXI Vagn [facility] 5 10:22:35 Placenta previa partialis 96159376 Active 2024 Alvaro Angelo MD [address] [place] [address], [phone], [facility], L.L.CRemigio 5 02:46:26 Low-lying placenta 503579001 Active 2024 Alvaro Angelo MD [address] [place] [address], [address], [facility], L.L.CRemigio 5 11:36:47 Problem Notes None recorded. Procedures Surgical History Date Name Laterality Status Provider Name and Address Organization Details Recorded Time 02/27/20 Date of Last Pap Smear completed KERWIN DUNAWAY [facility].L[facility]CRemigio 09/02/2025 18:39:21 02/27/20 25 liquid based cervical cytology screening completed [facility], [place] 09/02/2025 18:39:54 01/31/20 24 colposcopy completed [facility], [place] 01/24/2025 14:17:49 01/31/20 24 hysteroscopy completed [facility], [place] 01/24/2025 14:18:46 arthroscopy of left knee joint completed [facility], [place] 01/24/2025 14:17:01 cholecystectomy completed [facility], [place] 01/24/2025 14:17:33 Imaging Results None recorded. Procedure Notes None recorded. Medical Equipment None Reported. Allergies Allergen ID Allergen Name Allergen Category Reaction Reaction Severity Criticality Documentation Date Start Date Code Code System Note Provider Name and Address Organization Details Recorded Time 86414 Bactrim medicatio n hives moderate Not available 05/21/2023 60990 9 RxNorm [facility]io 5 15:30:03 34694 Product containin g penicilli n (product) medicatio n hives moderate Not available 05/21/2023 09407 8001 SNOMED [facility]ED [facility], LAlisaCRemigio 5 15:30:03 18883 Augmentin medicatio n hives moderate Not available 01/24/2025 46098 2 RxNorm KERWIN [facility], VikiLRemigioCRemigio 5 14:19:18 39340 Celebrex medicatio n other moderate Not available 01/24/2025 55973 7 RxNorm [facility]USCHWAN [facility] VikiLRemigioCRemigio 5 15:30:03 47569 Substance with sulfonami de structure and antibacte rial mechanism of action (substanc e) medicatio n hives moderate Not available 04/18/2025 20122 8003 SNOMED TREBA NEUSCHWAHailey KAVITHA jacquelin, [facility] 5 15:30:03 14381 amoxicill in / clavulana te medicatio n hives Not available high 09/06/20252022 81821 RxNorm Yessy ates PCN and amoxi cilli n fine Not Available anna - External Data Service - prod 5 07:58:34 80113 celecoxib medicatio n Not available Not available high 09/06/20252022 46553 7 RxNorm Not Available anna - External Data Service - prod 5 07:58:34 75433 amoxicill in medicatio n Not available Not available low 09/27/20252023 723 RxNorm Not Available anna - External Data Service - prod 5 13:40:54 66377 clavulani c acid Not available Not available Not available low 09/27/20252023 61268 RxNorm Not Available anna - External Data Service - prod 5 13:40:54 78716 sulfameth oxazole medicatio n Not available Not available Not available 09/27/20252023 78203 RxNorm Not Available anna - External Data Service - prod 5 13:40:54 93103 trimethop rim medicatio n Not available Not available Not available 09/27/20252023 69702 RxNorm Not Available anna - External Data [...] day by oral route as directed . 04/03/ 2023 12/17 /2024 completed Not Available Not Available Not Available [...] Tablet; Not Available Not Available Not Available Be 10/[address] Martinez; 0; Recorded 09/24/20 [...] Updated DateTime 5 170.18 cm 36.7 kg/m2 199041. 71 g 18 /min 99 % 94 /min 98.2 [degF] 124/66 mm[Hg] KERWIN DUNAWAY [facility] 11:07:48 Social History Question Answer Notes LastModified by Organizat ion Details LastModified Time Tobacco Smoking Status Former Sm[facility] 01/24/2023 10:09:31 Are You Blind Or Do You Have Difficulty Seeing? No Information not available 01/24/2025 Are You Deaf Or Do You Have Serious Difficulty Hearing? No [email or web address] Information not available 01/24/2023 When Did You Quit Smoking? 1-5yearssinc elastcigaret te [id number] Information not available 01/24/2023 Do You Work In Healthcare? No Information not available 01/24/2025 What Was The Date Of Your Most Recent Tobacco Screening? 03/26/2025 [email or web address] Information not available 03/26/2025 What Is Your Relationship Status? Information not available 01/24/2025 Have You Recently Traveled Abroad? No [email or web address] Information not available 01/24/2023 Do You Have Difficulty Walking Or Climbing Stairs? No [email or web address] Information not available 01/24/2023 Sex: Unknown Functional [...] independently without assistance or assistive devices? YESWOREST [email or web address] Information not available 01/24/2023 Do you have difficulty doing errands alone? No Information not available 01/24/2023 Are you able to care for yourself independently? 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 No [email or web address] Information not available 01/24/2023 Do you or [...] Organization Details LastModified Time Father Diabetes mellitus [email or web address] Not available 2023 09:43:45 Paternal Grandmother Malignant [...] Vaccine Type Date Status Note Provider Benny powell and Address Organization Details Recorded Time IPV 09/28/2000 completed Susan [facility]per [facility] 10/09/2024 09:35:10 MMR 04/11/1996 completed Susan roper [facility] 10/09/2024 09:35:10 MMR 09/28/2000 completed Susan Wilson null, [facility] 10/09/2024 09:35:10 Tdap 11/17/2010 completed Susan Wilson null, [facility] 10/09/2024 09:35:10 Tdap 02/20/2015 completed Susan Wilson null, [facility] 10/09/2024 09:35:10 Hep B, unspecified formulation 1995 completed Susan Wilson null, [facility] 10/09/2024 09:35:10 Hep B, unspecified formulation 02/28/1996 completed Susan Wilson null, [facility] 10/09/2024 09:35:10 Hep B, unspecified formulation 1995 completed Susan Wilson null, [facility] 10/09/2024 09:35:10 OPV, trivalent 1995 completed Susan Wilson null, [facility] 10/09/2024 09:35:10 OPV, trivalent 02/28/1996 completed Susan Wilson null, [facility] 10/09/2024 09:35:10 OPV, trivalent 1995 completed Susan Wilson null, [facility] 10/09/2024 09:35:10 DTP-Hib 11/29/1996 completed Susan Wilson null, [facility] 10/09/2024 09:35:10 DTP-Hib 1995 completed Susan Wilson null, [facility] 10/09/2024 09:35:10 DTP-Hib 02/28/1996 completed Susan Wilson null, [facility] 10/09/2024 09:35:10 DTP-Hib 1995 completed Susan Wilson null, [facility] 10/09/2024 09:35:10 DTaP 09/28/2000 completed Susan Wilson null, [facility] 10/09/2024 09:35:10 Past Encounters Encounter ID Performer Location Encounter Start Date Encounter Closed Date Diagnosis/Indication Diagnosis SNOMED-CT Code Diagnosis ICD10 Code Diagnosis IMO Codes Diagnosis Note [id number] Alvaro Angelo MD [facility] ([facility]) [address] [place] [address] [phone] 06/18/2025 11:21:56 06/18/2025 12:15:35 Normal 63359163 Z34.81 Gestation period, 26 weeks 09580868 Z3A.26 [id number] Alvaro Angelo MD [facility]) [address] [place] [address] [phone] 07/02/2025 08:58:15 07/03/2025 12:00:14 [id number] Alvaro Angelo MD [facility]) [address] [place] [address] [phone] 07/02/2025 08:58:47 07/04/2025 04:05:41 [id number] Alvaro Angelo MD [facility]) [address] [place] [address] [phone] 5 07/02/2025 10:39:30 07/02/2025 11:45:25 Normal 87979032 Z34.83 [id number] Gestation period, 28 weeks 09697880 Z3A.28 [id number] Health Concerns Section Related Observation LastModified by Organization Detai ls LastModified Time None Recorded Concern Status LastModified by Organization Details LastModified Time None Recorded Payers Encounter Date Sequence Insurance Name Policy Number Policy Fierro Covered Member ID Fierro Member ID Guarantor Name 07/02/2025 1 [place] [id number] Jeffy Zimmerman [id number] Jeffy Zimmerman Notes Date Note Type [...] noted in the HPI Alvaro Angelo MD [address] [place] [address], [phone], [facility] 07/02/2025 11:42:06 OBGyn Episode Ob Episode Information Episode Created Date Number of Fetuses Patient Bloodtype Patient rh Status Prepregnancy Weight lbs Domestic Partner Domestic Partner Phone Father Name [employer] Director Status 01/25/20 1 O Positive Damián OPEN [...] Resolution Snomed Code Not e Normal 02/25/2025 [id number] Merrill Calculation Initial Merrill Date Initial Exam [...] Weight in lbs Pre/Post Dialysis Refused Weight 227.671290272740 BP Diastolic BP Location Tested BP Systolic [...] Weight in lbs Pre/Post Dialysis Refused Weight 221.274599702161 BP Diastolic BP Location Tested BP Systolic [...] Weight in lbs Pre/Post Dialysis Refused Weight 221.067616649190 BP Diastolic BP Location Tested BP Systolic [...] Weight in lbs Pre/Post Dialysis Refused Weight 225.279406190551 BP Diastolic BP Location Tested BP Systolic [...] Weight in lbs Pre/Post Dialysis Refused Weight 230.399949574597 BP Diastolic BP Location Tested BP Systolic BP Type 62 L arm 106 Fetus Heart Rate Present A 148 Present Fetus Movement A Yes Comments heartburn Flowsheet Date 06/18/2025 Sierra Score Blood Edema Fundus Height Fundus Units Glucose Ketones Leukocytes Nitrite Labor Signs Protein Cervic Dilation Cervic Effacement Cervic Station Type Weight in lbs Pre/Post Dialysis Refused Weight 229.4546813055 BP Diastolic BP Location Tested BP Systolic [...] Weight in lbs Pre/Post Dialysis Refused Weight 234.711676564942 BP Diastolic BP Location Tested BP Systolic [...] Weight in lbs Pre/Post Dialysis Refused Weight 232.011512994394 BP Diastolic BP Location Tested BP Systolic [...] Weight in lbs Pre/Post Dialysis Refused Weight 236.158160435174 BP Diastolic BP Location Tested BP Systolic BP Type 76 120 Fetus Heart Rate Present A 144 Present Fetus Movement A Yes Comments mild swelling, heartburn int ermittent Flowsheet Date 08/13/2025 Sierra Score Blood Edema Fundus Height Fundus Units Glucose Ketones Leukocytes Nitrite Labor Signs Protein Cervic Dilation Cervic Effacement Cervic Station 34 cm none trace Payne Garnett neg Type Weight in lbs Pre/Post Dialysis Refused Weight 239.242415187629 BP Diastolic BP Location Tested BP Systolic [...] Weight in lbs Pre/Post Dialysis Refused Weight 241.394256100944 BP Diastolic BP Location Tested BP Systolic [...] Cervic Effacement Cervic Station none none Negative Payne Garnett neg 2cm 70% -3 Type Weight in lbs Pre/Post Dialysis Refused Weight 241.213055819673 BP Diastolic BP Location Tested BP Systolic [...] Weight in lbs Pre/Post Dialysis Refused Weight 243.999074014482 BP Diastolic BP Location Tested BP Systolic BP Type 70 120 Fetus Heart Rate Present Fetus Movement Comments Flowsheet Date 09/10/2025 Sierra Score Blood Edema Fundus Height Fundus Units Glucose Ketones Leukocytes Nitrite Labor Signs Protein Cervic Dilation Cervic Effacement Cervic Station none trace Negative Payne Garnett neg 2cm 70% -3 Type Weight in lbs Pre/Post Dialysis Refused Weight 243.868437301923 BP Diastolic BP Location Tested BP Systolic [...] Weight in lbs Pre/Post Dialysis Refused Weight 242.690715754803 BP Diastolic BP Location Tested BP Systolic [...] Weight in lbs Pre/Post Dialysis Refused Weight 244.987407815529 BP Diastolic BP Location Tested BP Systolic [...] Weight in lbs Pre/Post Dialysis Refused Weight 248.141688701857 BP Diastolic BP Location Tested BP Systolic [...] Estim ated Date of Delivery false Thalassemia (Lithuanian, Danish, Mediterranean, Or Background): MCV < 80 false Neural Tube Defect (Meningomyelocele, Spina Bifi da, Or Anencephaly) false Congenital Heart Defect false Down Syndrome false Maco-Sachs (eg, Roman Catholic, Cajun, [place]i-[place]) f alse Dustin Disease false Sickle Cell Disease Or Trait () false Hemophilia Or Other Blood Disorders false Muscular Dystrophy false Cystic Fibrosis false Cleveland's Chorea false Intellectual Disability/Autism false If Yes, [...]
--- OUTSIDE RECORDS SUMMARY | 2025-09-30 23:40 | XMS_ITS | Continuity of Care Document ---
Author Organization [facility] Fabio Myers [facility], [place], [facility] ([facility]) Address [address] [place] [address] Assessment No assessment recorded. Plan of Treatment [...] ETE color YELLOW yellow normal Not Available [employer] [address] [place], [address], 02/27/2025 22:28:50 02/27/20 25 02/27/2025 URINA LYSIS , COMPL ETE appearance CLEAR clear normal Not Available [employer] [address] [place], [address], 02/27/2025 22:28:50 02/27/20 25 02/27/2025 URINA LYSIS , COMPL ETE specific gravity 1.012 1.001- 1.035 normal Not Available [employer] [address] [place], [address], 02/27/2025 22:28:50 02/27/20 25 02/27/2025 URINA LYSIS , COMPL ETE pH 7.5 5.0-8. 0 normal Not Available [address], [address], 02/27/2025 22:28:50 02/27/20 25 02/27/2025 URINA LYSIS , COMPL ETE glucose NEGATI VE negati ve normal Not Available [address], [address], 02/27/2025 22:28:50 02/27/20 25 02/27/2025 URINA LYSIS , COMPL ETE bilirubin NEGATI VE negati ve normal Not Available [address], [address], 02/27/2025 22:28:50 02/27/20 25 02/27/2025 URINA LYSIS , COMPL ETE ketones NEGATI VE negati ve normal Not Available [address], [address], 02/27/2025 22:28:50 02/27/20 25 02/27/2025 URINA LYSIS , COMPL ETE occult blood NEGATI VE negati ve normal Not Available [facility] [address], [address], 02/27/2025 22:28:50 02/27/20 25 02/27/2025 URINA LYSIS , COMPL ETE protein NEGATI VE negati ve normal Not Available [facility] [address], [address], 02/27/2025 22:28:50 02/27/20 25 02/27/2025 URINA LYSIS , COMPL ETE nitrite NEGATI VE negati ve normal Not Available [facility] [address], [address], 02/27/2025 22:28:50 02/27/20 25 02/27/2025 URINA LYSIS , COMPL ETE leukocyte esterase TRACE negati ve abnormal Not Available [address], [address], 02/27/2025 22:28:50 02/27/20 25 02/27/2025 URINA LYSIS , COMPL ETE WBC NONE SEEN /hpf < or = 5 normal Not Available [address], [address], 02/27/2025 22:28:50 02/27/20 25 02/27/2025 URINA LYSIS , COMPL ETE RBC NONE SEEN /hpf < or = 2 normal Not Available [address], [address], 02/27/2025 22:28:50 02/27/20 25 02/27/2025 URINA LYSIS , COMPL ETE squamous epithelial cells 6-10 /hpf < or = 5 abnormal Not Available [address], [address], 02/27/2025 22:28:50 02/27/20 25 02/27/2025 URINA LYSIS , COMPL ETE bacteria NONE SEEN /hpf none seen normal Not Available [address], [address], 02/27/2025 22:28:50 02/27/20 25 02/27/2025 URINA LYSIS , COMPL ETE hyaline cast NONE SEEN /lpf none seen normal Not Available [address], [address], 02/27/2025 22:28:50 02/27/20 25 02/27/2025 URINA LYSIS , COMPL ETE note This urine was jim zed for the prese nce of WBC, RBC, bacte terry, casts , and other forme d eleme nts. Only those eleme nts seen were repor bruce. Not Available [address], [address], 02/27/2025 22:28:50 02/27/20 25 02/27/2025 CBC (INCL UDES DIFF/ PLT) white blood cell count 8.9 thous and/u L 3.8-10 .8 normal Not Available [address], [address], 02/27/2025 22:28:51 02/27/20 25 02/27/2025 CBC (INCL UDES DIFF/ PLT) red blood cell count 4.42 erick on/uL 3.80-5 .10 normal Not Available [address], [address], 02/27/2025 22:28:51 02/27/20 25 02/27/2025 CBC (INCL UDES DIFF/ PLT) hemoglobin 13.2 g/dL 11.7-1 5.5 normal Not Available [address], [address], 02/27/2025 22:28:51 02/27/20 25 02/27/2025 CBC (INCL UDES DIFF/ PLT) hematocrit 41.4 % 35.0-4 5.0 normal Not Available [address], [address], 02/27/2025 22:28:51 02/27/20 25 02/27/2025 CBC (INCL UDES DIFF/ PLT) MCV 93.7 fL 80.0-1 00.0 normal Not Available [address], [address], 02/27/2025 22:28:51 02/27/20 25 02/27/2025 CBC (INCL UDES DIFF/ PLT) MCH 29.9 pg 27.0-3 3.0 normal Not Available [facility] [employer] [address], [address], 02/27/2025 22:28:51 02/27/20 25 02/27/2025 CBC (INCL [...] rajiv condi tion. Not Available [facility] [address], [address], 02/27/2025 22:28:51 02/27/20 25 02/27/2025 CBC (INCL UDES DIFF/ PLT) RDW 12.5 % 11.0-1 5.0 normal Not Available [facility] [address], [address], 02/27/2025 22:28:51 02/27/20 25 02/27/2025 CBC (INCL UDES DIFF/ PLT) platelet count 294 thous and/u L 140-40 0 normal Not Available [facility] [address], [address], 02/27/2025 22:28:51 02/27/20 25 02/27/2025 CBC (INCL UDES DIFF/ PLT) MPV 11.6 fL 7.5-12 .5 normal Not Available [facility] [address], [address], 02/27/2025 22:28:51 02/27/20 25 02/27/2025 CBC (INCL UDES DIFF/ PLT) absolute neutrophils 6408 cells /uL 1500-7 800 normal Not Available [facility] [address], [address], 02/27/2025 22:28:51 02/27/20 25 02/27/2025 CBC (INCL UDES DIFF/ PLT) absolute lymphocytes 1833 cells /uL 850-39 00 normal Not Available [address], [address], 02/27/2025 22:28:51 02/27/20 25 02/27/2025 CBC (INCL UDES DIFF/ PLT) absolute monocytes 481 cells /uL 200-95 0 normal Not Available [address], [address], 02/27/2025 22:28:51 02/27/20 25 02/27/2025 CBC (INCL UDES DIFF/ PLT) absolute eosinophils 151 cells /uL 15-500 normal Not Available [address], [address], 02/27/2025 22:28:51 02/27/20 25 02/27/2025 CBC (INCL UDES DIFF/ PLT) absolute basophils 27 cells /uL 0-200 normal Not Available [address], [address], 02/27/2025 22:28:51 02/27/20 25 02/27/2025 CBC (INCL UDES DIFF/ PLT) neutrophils 72 % normal Not Available [address], [address], 02/27/2025 22:28:51 02/27/20 25 02/27/2025 CBC (INCL UDES DIFF/ PLT) lymphocytes 20.6 % normal Not Available [address], [address], 02/27/2025 22:28:51 02/27/20 25 02/27/2025 CBC (INCL UDES DIFF/ PLT) monocytes 5.4 % normal Not Available [address], [address], 02/27/2025 22:28:51 02/27/20 25 02/27/2025 CBC (INCL UDES DIFF/ PLT) eosinophils 1.7 % normal Not Available [address] [address] [place], [address], 02/27/2025 22:28:51 02/27/20 25 02/27/2025 CBC (INCL UDES DIFF/ PLT) basophils 0.3 % normal Not Available [facility] [address] [place], [address], 02/27/2025 22:28:51 02/27/20 25 02/27/2025 HEPAT ITIS B SURFA CE ANTIG EN W/REF L CONFI RM hepatitis B surface antigen NON-RE ACTIVE non-re active normal For addit ional infor amy raphael, sabrina e refer to http: //[facility] partnerstodd raphael.que stdia gnost ics.c om/fa q/FAQ 202 (This link is being provi ded for infor matio nal/ educa jhonathan l purpo ses only. ) Not Available [facility] [address], [address], 02/27/2025 22:28:52 02/27/20 25 02/27/2025 HEPAT ITIS [...] a test for HCV RNA (test code 98243 ) is sugge sted. For addit ional infor amy raphael pleas e refer to http: //[facility] n.que stdia gnost ics.c om/fa q/FAQ 22v1 (This link is being provi ded for infor matio nal/ educa jhonathan l purpo ses only. ) Not Available [facility] [address] [address] [place], [address], 02/27/2025 22:28:53 02/27/20 25 02/27/2025 RUBEL LA [...] with rubel la virus . Not Available [employer] [facility] [address], [place], [address], 02/27/2025 22:28:53 02/27/2002/27/2025 HIV 1/2 ANTIG EN/AN [...] less than 2 years old. Not Available [address] [address] [place], [address], 02/27/2025 22:28:54 02/27/20 25 02/27/2025 RPR (DX) W/REF L TITER AND T. PALLI DUM AB, IA RPR (DX) w/refl titer and confirmatory testing NON-RE ACTIVE non-re active normal No labor atory evide nce of syphi lis. If recen t expos ure is suspe cted, submi t a new sampl e in 2-4 weeks . Not Available [facility] [address] [place], [address], 02/27/2025 22:28:55 02/27/20 25 02/27/2025 ANTIB EFREN [...] alloi mmuni zed pregn benjamin. Not Available [address] [place], [address], 02/27/2025 22:28:56 02/27/20 25 02/27/2025 ABO GROUP AND RH TYPE ABO group O Not Available [facility] [address] [address] [place], [address], 02/27/2025 22:28:57 02/27/20 25 02/27/2025 ABO GROUP AND RH TYPE Rh type RH(D) POSITI VE For addit ional infor sabrina roth e refer to http: //[facility] hayley lesterQue stDia gnost ics.c om/fa q/FAQ 111 (This link is being provi ded for infor amy trujillo/ educcatracho ring l purpo ses only. ) Not Available [facility] [address] [address] [address], [place], [address], 02/27/2025 22:28:57 02/27/20 25 02/27/2025 DRUG MONIT OR, PANEL 1, SCREE N, URINE amphetamines NEGATI VE NG/mL <500 See Note A See Note A Not Available [facility] [address] [address] [address], [place], [address], 02/27/2025 22:28:58 02/27/20 25 02/27/2025 DRUG MONIT OR, PANEL 1, SCREE N, URINE barbiturates NEGATI VE NG/mL <300 See Note A See Note A Not Available [facility] [address] [address] [address], [place], [address], 02/27/2025 22:28:58 02/27/20 25 02/27/2025 DRUG MONIT OR, PANEL 1, SCREE N, URINE benzodiazepi duane NEGATI VE NG/mL <100 See Note A See Note A Not Available [facility] [address] [address] [address], [place], [address], 02/27/2025 22:28:58 02/27/2002/27/2025 DRUG MONIT OR, PANEL 1, SCREE N, URINE cocaine metabolite NEGATI VE NG/mL <150 See Note A See Note A Not Available [facility] [address] [address] [address], [place], [address], 02/27/2025 22:28:58 02/27/20 25 02/27/2025 DRUG MONIT OR, PANEL 1, SCREE N, URINE marijuana metabolite NEGATI VE NG/mL <20 See Note A See Note A Not Available [facility] [address] [address] [address], [place], [address], 02/27/2025 22:28:58 02/27/20 25 02/27/2025 DRUG MONIT OR, PANEL 1, SCREE N, URINE methadone metabolite NEGATI VE NG/mL <100 See Note A See Note A Not Available [facility] [address] [address] [address], [place], [address], 02/27/2025 22:28:58 02/27/20 25 02/27/2025 DRUG MONIT OR, PANEL 1, SCREE N, URINE opiates NEGATI VE NG/mL <100 See Note A See Note A Not Available [address] [address] [address], [place], [address], 02/27/2025 22:28:58 02/27/20 25 02/27/2025 DRUG MONIT OR, PANEL 1, SCREE N, URINE oxycodone NEGATI VE NG/mL <100 See Note A See Note A Not Available [address] [address] [address], [place], [address], 02/27/2025 22:28:58 02/27/20 25 02/27/2025 DRUG MONIT OR, PANEL 1, SCREE N, URINE phencyclidin e NEGATI VE NG/mL <25 See Note A See Note A Not Available [address] [address] [address], [place], [address], 02/27/2025 22:28:58 02/27/20 25 02/27/2025 DRUG MONIT OR, PANEL 1, SCREE N, URINE creatinine 108.1 mg/dL > or = 20.0 Not Available [address] [address] [address], [place], [address], 02/27/2025 22:28:58 02/27/20 25 02/27/2025 DRUG MONIT OR, PANEL 1, SCREE N, URINE pH 7.7 4.5-9. 0 Not Available [address] [address] [address], [place], [address], 02/27/2025 22:28:58 02/27/20 25 02/27/2025 DRUG MONIT OR, PANEL 1, SCREE N, URINE oxidant NEGATI VE mcg/m L <200 Not Available [address] [address] [address], [place], [address], 02/27/2025 22:28:58 02/27/20 25 02/27/2025 DRUG MONIT [...] M-F, 8am to 10pm EST Not Available [address] [address] [place], [address], 02/27/2025 22:28:59 02/27/2002/27/2025 CULTU RE, URINE , ROUTI NE culture, urine, routine SEE NOTE CULTU RE, URINE , ROUTI NE Micro Numbe r: [id number] Test Statu s: Final Speci men Sourc e: Urine Speci men Quali ty: Adequ ate Resul t: No Growt h Not Available [address] [address] [place], [address], 02/27/2025 22:28:59 02/27/2003/08/2025 THINP REP TIS PAP (REFL ) HPV MRNA E6/E7 clinical information: normal Pregn ant Not Available [facility] [address] [address] [place], [address], 03/08/2025 08:16:51 02/27/2003/08/2025 THINP REP TIS PAP (REFL ) HPV MRNA E6/E7 LMP: normal NONE GIVEN Not Available [facility] [address] [address] [place], [address], 03/08/2025 08:16:51 02/27/20 25 03/08/2025 THINP REP TIS PAP (REFL ) HPV MRNA E6/E7 prev. Pap: normal NONE GIVEN Not Available [address], [address], 03/08/2025 08:16:51 02/27/2003/08/2025 THINP REP TIS PAP (REFL ) HPV MRNA E6/E7 prev. BX: normal NONE GIVEN Not Available [address] [place], [address], 03/08/2025 08:16:51 02/27/2003/08/2025 THINP REP TIS PAP (REFL ) HPV MRNA E6/E7 source: normal Cervi x, Endoc ervix Not Available [address], [address], 03/08/2025 08:16:51 02/27/2003/08/2025 THINP REP TIS PAP (REFL ) HPV MRNA E6/E7 statement of adequacy: normal Satis facto ry for evalu ation . Endoc ervic al/tr ansfo rmati on zone compo nent prese nt. Not Available [address], [address], 03/08/2025 08:16:51 02/27/2003/08/2025 THINP REP TIS PAP (REFL ) HPV MRNA E6/E7 general categorizati on: abnormal Cytol ogy Resul ts: Epith elial Cell Abnor malit y Not Available [address], [address], 03/08/2025 08:16:51 02/27/2003/08/2025 THINP REP TIS PAP (REFL ) HPV MRNA E6/E7 interpretati on/result: abnormal Low Grade Squam ous Intra epith elial Lesio n (LSIL ) Not Available [address] [place], [address], 03/08/2025 08:16:51 02/27/20 25 03/08/2025 THINP REP TIS PAP (REFL ) HPV MRNA E6/E7 comment: normal This Pap test has been evalu ated with sherice mayen techn ology . Sugge st clini rajiv corre latio n and follo w-up as clini solomon appro priat e Not Available [address] [address] [place], [address], 03/08/2025 08:16:51 02/27/20 25 03/08/2025 THINP REP TIS PAP (REFL ) HPV MRNA E6/E7 cytotechnolo gist: normal KMS, CT( CP) CT Scree pat locat ion: [address] [place] [address] [address] Not Available [address] [address] [place], [address], 03/08/2025 08:16:51 02/27/20 25 03/08/2025 THINP REP TIS PAP (REFL ) HPV MRNA E6/E7 pathologist: normal Alisha monique M.D., Board Certi fied in Anato jesús Patho logy and Cytop athol ogy. Phone : [phone] (elec troni c signa ture) Patho logis t Relea se Date/ Time: 03/06 09:25 AM Not Available [address] [address] [place], [address], 03/08/2025 08:16:51 02/27/20 25 03/08/2025 THINP REP [...] clini rajiv infor amy raphael. Not Available [address] [address] [place], [address], 03/08/2025 08:16:51 02/27/20 25 03/08/2025 HPV MRNA [...] infor sabrina roth e refer to http: //[facility] hayley raphael.patience stdia gnost ics.c om/fa q/FAQ 129v1 (This link if provi ded for infor amy raphael/ educa jhonathan l purpo ses only. ) Not Available [address] [address] [place], [address], 03/08/2025 08:16:53 02/27/20 25 02/26/2025 CT + NG + TV, DNA, urine /swab Chlamydia negati ve Not Available [facility] ([facility]) [address] [place] [address], [address], 02/25/2025 18:55:26 02/27/20 25 02/26/2025 CT + NG + TV, DNA, urine /swab Gonorrhea negati ve Not Available [facility] ([facility]) [address] [place] [address], [phone], 02/25/2025 18:55:26 02/27/20 25 02/26/2025 CT + NG + TV, DNA, urine /swab Trichomonas negati ve Not Available [facility] ([facility]) [address] [place], [address], 02/25/2025 18:55:26 07/02/20 25 07/02/2025 CBC WBC 11.1 x10 4.0-10 .5 high Not Available [facility] [address] [facility] [address] [address], [place], [address], 07/02/2025 10:24:57 07/02/20 25 07/02/2025 CBC RBC 3.96 x10 3.50-5 .50 Not Available [facility] [address] [facility] [address], [place], [address], 07/02/2025 10:24:57 07/02/20 25 07/02/2025 CBC HGB 12.0 g/dL 12.0-1 6.0 Not Available [facility] [address] [facility], [place], [address], 07/02/2025 10:24:57 07/02/20 25 07/02/2025 CBC HCT 37.1 % 37.0-4 7.0 Not Available [facility] [address] [facility], [place], [address], 07/02/2025 10:24:57 07/02/20 25 07/02/2025 CBC MCV 93.8 fL 80.0-9 9.9 Not Available [facility] [address] [facility] Nuria [facility] 1, [place], [address], 07/02/2025 10:24:57 07/02/20 25 07/02/2025 CBC MCH 30.4 pg 27.0-3 2.0 Not Available [facility] [address] Qui[address]ones [facility] 1, [place], [address], 07/02/2025 10:24:57 07/02/2007/02/2025 CBC MCHC 32.4 g/dL 32.0-3 6.0 Not Available [facility] [address] [facility] 1, [place], [address], 07/02/2025 10:24:57 07/02/2007/02/2025 CBC RDW 12.9 % 11.5-1 4.5 Not Available [facility] [address] Qui[address]ones [facility] 1, [place], [address], 07/02/2025 10:24:57 07/02/2007/02/2025 CBC plt 227.7 x10 140.0- 451.0 Not Available [facility] [address] [facility] 1, [place], [address], 07/02/2025 10:24:57 07/02/2007/02/2025 CBC lymphocytes % 15.5 % 20.0-5 0.0 low Not Available [facility] [address] Fel[address] Quiñones [facility] 1, [place], [address], 07/02/2025 10:24:57 07/02/2007/02/2025 CBC granulcytes % 78.3 % 30.0-7 0.0 high Not Available [facility] [address] [facility] 1, [place], [address], 07/02/2025 10:24:57 07/02/2007/02/2025 CBC monocytes % 4.2 % 2.0-16 .0 Not Available [facility] [address] [facility] Qu[facility] 1, [place], [address], 07/02/2025 10:24:57 07/02/2007/02/2025 CBC granulcytes# 8.7 x10 Not Jenny ilable [facility] [address] [facility] [address], [place], [address], 07/02/2025 10:24:57 07/02/20 25 07/02/2025 CBC lymphocytes # 1.7 x10 Not Available [facility] [address] [facility] [address], [place], [address], 07/02/2025 10:24:57 07/02/20 25 07/02/2025 CBC monocytes # 0.5 x10 Not Avai lable [facility] [address] [facility] [address], [place], [address], 07/02/2025 10:24:57 07/02/20 25 07/02/2025 GLUCO SE SCREE N glucose screen 135.0 mg/dL Not Available [facility] [address] [facility] [address], [place], [address], 07/02/2025 10:30:30 07/11/20 25 07/11/2025 GLUCO SE SCREE N glucose screen 133.0 mg/dL Not Available [facility] [address] [facility] [address], [place], [address], 07/11/2025 10:37:03 08/27/20 25 09/02/2025 CULTU RE, GROUP B STREP WITH SUSCE PTIBI LITY culture, group B strep with susceptibili ty SEE NOTE abnormal CULTU RE, GROUP B STREP WITH SUSCE PTIBI LITY Micro Numbe r: [id number] Test Statu s: Final Speci men Sourc [...] See Thera py Comme nts Not Available [facility] [address] [address], [place], [address], 09/02/2025 14:26:34 02/19/20 25 02/12/2025 US, obste tric, 1st trime ster No observ ation record ed. [email or web address] Not Available 02/19 09:09:34 04/25/20 25 04/18/2025 US, obste tric, follo w-up No observ ation record ed. [email or web address] [facility] [address] [place], [address], 04/29/2025 09:24:34 05/11/20 25 05/07/2025 US, obste tric, 2nd trime ster No observ ation record ed. [facility] [address] [place], [address], 05/13/2025 17:57:21 07/05/20 25 07/02/2025 imagi ng/di agnos tic resul t No observ ation record ed. [facility] [address] [place], [address], 07/09/2025 10:35:54 Result Notes None recorded. Problems Name Problem SNOMED Code Status Onset Date Resolution Date Notes Provider Name and Address Organization Details Recorded Time Rheumatoid arthritis 08972482 Active 2022 [facility] 14:16:25 Pain of knee region 4649428330 Completed 202301/24/2025 KERWIN roper [facility], [place] 5 14:16:23 Family history of diabetes mellitus 756006758 Active 2023 KERWIN roper [facility], SaschaCRemigio 5 14:16:18 Normal 34733850 Active 2024 ROXI PLUMMER null, [facility], LRemigioL.CRemigio 5 10:22:35 Normal 75120782 Active 2024 ROXI PLUMMER null, [facility], LRemigioL.CRemigio 5 10:22:35 Placenta previa partialis 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 Procedures Surgical History Date Name Laterality Status Provider Name and Address Organization Details Recorded Time 02/27/20 25 Date of Last Pap Smear [facility] [place] 09/02/2025 18:39:21 02/27/20 25 liquid based cervical cytology screening completed [facility], [place] 09/02/2025 18:39:54 01/31/20 24 colposcopy completed [facility], [place] 01/24/2025 14:17:49 01/31/20 24 hysteroscopy completed [facility] 01/24/2025 14:18:46 arthroscopy of left knee joint completed [facility] 01/24/2025 14:17:01 cholecystectomy completed [facility] 01/24/2025 14:17:33 Imaging Results None recorded. Procedure Notes None recorded. Medical Equipment None Reported. Allergies Allergen ID Allergen Name Allergen Category Reaction Reaction Severity Criticality Documentation Date Start Date Code Code System Note Provider Name and Address Organization Details Recorded Time 85611 Bactrim medicatio n hives moderate Not available 05/21/2023 59011 9 RxNorm TREBA NEUSCHWAN [facility] 15:30:03 82931 Product containin g penicilli n (product) medicatio n hives moderate Not available 05/21/2023 48806 8001 SNOMED TREBA NEUSCHWAN KAVITHA [facility] 15:30:03 45018 Augmentin medicatio n hives moderate Not available 01/24/2025 06009 2 RxNorm [facility] 14:19:18 90035 Celebrex medicatio n other moderate Not available 01/24/2025 96112 7 RxNorm TREBA NEUSCHWAN [facility] 15:30:03 69851 Substance with sulfonami de structure and antibacte rial mechanism of action (substanc e) medicatio n hives moderate Not available 04/18/2025 19851 8003 SNOMED TREBA NEUSCHWAN [facility] 15:30:03 65352 amoxicill in / clavulana te medicatio n hives Not available high 09/06/20252022 40445 RxNorm Yessy ates PCN and amoxi cilli n fine Not Available anna - External Data Service - prod 5 07:58:34 10079 celecoxib medicatio n Not available Not available high 09/06/20252022 59660 7 RxNorm Not Available anna - External Data Service - prod 5 07:58:34 02202 amoxicill in medicatio n Not available Not available low 09/27/20252023 723 RxNorm Not Available anna - External Data Service - prod 13:40:54 27393 clavulani c acid Not available Not available Not available low 09/27/20252023 45076 RxNorm Not Available anna - External Data Service - prod 5 13:40:54 60504 sulfameth oxazole medicatio n Not available Not available Not available 09/27/20252023 48147 RxNorm Not Available anna - External Data Service - prod 13:40:54 77516 trimethop rim medicatio n Not available Not available Not available 09/27/20252023 99060 RxNorm Not Available anna - External Data [...] Updated DateTime 5 170.18 cm 37.8 kg/m2 498595. 86 g 99 % 93 /min 18 /min 98.9 [degF] 122/74 mm[Hg] ROXI PLUMMER [facility] 5 11:23:29 Social History Question Answer Notes LastModified by Organizat ion Details LastModified Time Tobacco Smoking Status Former Smoker ANTONIO roper [facility] 01/24/2023 10:09:31 Are You Blind Or Do You Have Difficulty Seeing? No Information not available 01/24/2025 Are You Deaf Or Do You Have Serious Difficulty Hearing? No [email or web address] Information not available 01/24/2023 When Did You Quit Smoking? 1-5yearssinc elastcigaret te [id number] Information not available 01/24/2023 Do You Work In Healthcare? No Information not available 01/24/2025 What Was The Date Of Your Most Recent Tobacco Screening? 03/26/2025 [email or web address] Information not available 03/26/2025 What Is Your Relationship Status? Information not available 01/24/2025 Have You Recently Traveled Abroad? No [email or web address] Information not available 01/24/2023 Do You Have Difficulty Walking Or Climbing Stairs? No [email or web address] Information not available 01/24/2023 Sex: Unknown Functional [...] independently without assistance or assistive devices? YESWOREST [email or web address] Information not available 01/24/2023 Do you have difficulty doing errands alone? No Information not available 01/24/2023 Are you able to care for yourself independently? 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 No [email or web address] Information not available 01/24/2023 Do you or have you ever used e-cigarettes or vape? Former user of electronic cigarettes Information not available 01/24/2025 Mental Status Question Answer Note LastModified by Organization D etails LastModified Time Do you have difficulty concentrating, remembering or making decisions? No [email or web address] Information no t available 01/24/2023 Family History [...] Lung Disease N COPD N Depression N Defects or Inherited Disease [...] Recorded Time IPV 09/28/2000 [facility]/09/[facility] 09:35:10 MMR 04/11/1996 [facility] 10/09/2024 09:35:10 MMR 09/28/2000 [facility] 10/09/2024 09:35:10 Tdap 11/17/2010 [facility] 10/09/2024 09:35:10 Tdap 02/20/2015 completed Susan Wilson null, [facility] 10/09/2024 09:35:10 Hep B, unspecified formulation 1995 completed Susan Wilson null, [facility] 10/09/2024 09:35:10 Hep B, unspecified formulation 02/28/1996 completed Susan Wilson null, [facility] 10/09/2024 09:35:10 Hep B, unspecified formulation 1995 completed Susan Wilson null, [facility] 10/09/2024 09:35:10 OPV, trivalent 1995 completed Susan Wilson null, [facility] 10/09/2024 09:35:10 OPV, trivalent 02/28/1996 completed Susan Wilson null, [facility] 10/09/2024 09:35:10 OPV, trivalent 1995 completed Susan Wilson null, [facility] 10/09/2024 09:35:10 DTP-Hib 11/29/1996 completed Susan Wilson null, [facility] 10/09/2024 09:35:10 DTP-Hib 1995 completed Susan Wilson null, [facility] 10/09/2024 09:35:10 DTP-Hib 02/28/1996 completed Susan Wilson null, [facility] 10/09/2024 09:35:10 DTP-Hib 1995 completed Susan Wilson null, [facility] 10/09/2024 09:35:10 DTaP 09/28/2000 completed Susan Wilson null, [facility] 09:35:10 Past Encounters Encounter ID Performer Location Encounter Start Date Encounter Closed Date Diagnosis/Indication Diagnosis SNOMED-CT Code Diagnosis ICD10 Code Diagnosis IMO Codes Diagnosis Note [id number] Alvaro Angelo MD [facility] ([facility]) [address] [place] [address] [phone] 08/13/2025 10:44:33 08/13/2025 11:38:15 Normal 82789522 Z34.83 Gestation period, 34 weeks 08258881 Z3A.34 [id number] Alvaro Angelo MD [facility]) [address] [place] [address] [phone] 08/27/2025 10:35:57 08/27/2025 11:34:41 Normal 71441429 Z34.83 Gestation period, 36 weeks 14777210 Z3A.36 [id number] Alvaro Angelo MD [facility] ([facility]) [address] [place] [address] [id number] 5 09/03/2025 10:32:59 09/03/2025 11:48:15 Multigravida 592228216 Z34.83 [id number] Gestation period, 37 weeks 88202571 Z3A.37 [id number] Health Concerns Section Related Observation LastModified by Organization Detai ls LastModified Time None Recorded Concern Status LastModified by Organization Details LastModified Time None Recorded Payers Encounter Date Sequence Insurance Name Policy Number Policy Fierro Covered Member ID Fierro Member ID Guarantor Name 09/03/2025 1 [employer] (PPO) [id number] Jeffy Zimmerman [id number] Jeffy Zimmerman Notes Date Note Type [...] noted in the HPI Alvaro Angelo MD [address] [place] [address], [id number], [facility] 09/03/2025 11:46:17 OBGyn Episode Ob Episode Information Episode Created Date Number of Fetuses Patient Bloodtype Patient rh Status Prepregnancy Weight lbs Domestic Partner Domestic Partner Phone Father Name 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 Status 01/25/20 25 1 O Positive Damián [...] Resolution Snomed Code Not e Normal 02/25/2025 [id number] Harshil Calculation Initial Harshil Date Initial Exam [...] Weight in lbs Pre/Post Dialysis Refused Weight 227.132943271283 BP Diastolic BP Location Tested BP Systolic [...] Weight in lbs Pre/Post Dialysis Refused Weight 221.501017107299 BP Diastolic BP Location Tested BP Systolic [...] Weight in lbs Pre/Post Dialysis Refused Weight 221.974560500779 BP Diastolic BP Location Tested BP Systolic [...] Weight in lbs Pre/Post Dialysis Refused Weight 225.507118581375 BP Diastolic BP Location Tested BP Systolic [...] Weight in lbs Pre/Post Dialysis Refused Weight 230.681020008189 BP Diastolic BP Location Tested BP Systolic BP Type 62 L arm 106 Fetus Heart Rate Present A 148 Present Fetus Movement A Yes Comments heartburn Flowsheet Date 06/18/2025 Sierra Score Blood Edema Fundus Height Fundus Units Glucose Ketones Leukocytes Nitrite Labor Signs Protein Cervic Dilation Cervic Effacement Cervic Station Type Weight in lbs Pre/Post Dialysis Refused Weight 229.5494625403 BP Diastolic BP Location Tested BP Systolic [...] Weight in lbs Pre/Post Dialysis Refused Weight 234.669763690148 BP Diastolic BP Location Tested BP Systolic [...] Weight in lbs Pre/Post Dialysis Refused Weight 232.866562669719 BP Diastolic BP Location Tested BP Systolic [...] Weight in lbs Pre/Post Dialysis Refused Weight 236.473443138739 BP Diastolic BP Location Tested BP Systolic [...] Weight in lbs Pre/Post Dialysis Refused Weight 239.246553133249 BP Diastolic BP Location Tested BP Systolic [...] Weight in lbs Pre/Post Dialysis Refused Weight 241.463617207935 BP Diastolic BP Location Tested BP Systolic [...] Cervic Effacement Cervic Station none none Negative [place] neg 2cm 70% -3 Type Weight in lbs Pre/Post Dialysis Refused Weight 241.313226387623 BP Diastolic BP Location Tested BP Systolic [...] Weight in lbs Pre/Post Dialysis Refused Weight 243.067901541359 BP Diastolic BP Location Tested BP Systolic BP Type 70 120 Fetus Heart Rate Present Fetus Movement Comments Flowsheet Date 09/10/2025 Sierra Score Blood Edema Fundus Height Fundus Units Glucose Ketones Leukocytes Nitrite Labor Signs Protein Cervic Dilation Cervic Effacement Cervic Station none trace Negative [place] neg 2cm 70% -3 Type Weight in lbs Pre/Post Dialysis Refused Weight 243.114756819346 BP Diastolic BP Location Tested BP Systolic [...] Weight in lbs Pre/Post Dialysis Refused Weight 242.033442656593 BP Diastolic BP Location Tested BP Systolic BP Type 70 122 Fetus Heart Rate Present A 164 Present Fetus Movement A Yes Comments low back pain, vaginal press ure, swelling in hands/feet Flowsheet Date 09/24/2025 Sierra Score Blood Edema Fundus Height Fundus Units Glucose Ketones Leukocytes Nitrite Labor Signs Protein Cervic Dilation Cervic Effacement Cervic Station none 1+ Negative [place] trace 3cm 70% -4 Type Weight in lbs Pre/Post Dialysis Refused Weight 244.377168699181 BP Diastolic BP Location Tested BP Systolic [...] Weight in lbs Pre/Post Dialysis Refused Weight 248.922032336352 BP Diastolic BP Location Tested BP Systolic [...] Estim ated Date of Delivery false Thalassemia (Portuguese, Syriac, Mediterranean, Or Background): MCV < 80 false Neural Tube Defect (Meningomyelocele, Spina Bifi da, Or Anencephaly) false Congenital Heart Defect false Down Syndrome false Maco-Sachs (eg, Buddhist, Cajun, [place]alan-[place]) f alse Dustin Disease false Sickle Cell [...]
--- OUTSIDE RECORDS SUMMARY | 2025-09-30 23:40 | XMS_ITS | Continuity of Care Document ---
Author Organization [facility] Fabio Myers [facility] Rafael, LFelisha, [facility] ([facility]) Address [address] [place] [address] Assessment No assessment recorded. Plan of Treatment Reminders Order Date Submit Date Provider Last Modified By Organization Details Last Modified Time Details Appointments POST-PART UM VISIT 2025 11:00A Eric Angelo MD Not available Not available Not available Lab CBC 2024 025 [facility], [address], [address], [place], [address], 09/06/2025 09:32:26 CMP, serum or plasma 2024 025 [facility], [address], [place], [address], 09/06/2025 09:46:52 lipid panel, blood 2024 025 [facility], [address], [address], [place], [address], 09/06/2025 09:46:55 thyrotrop in, QN, serum or plasma 2024 025 [facility], [address], [address], [place], [address], 09/06/2025 10:02:31 hemoglobi n A1C/hemog lobin total, QN, blood 2024 025 ANNA [facility], [address], [facility], [place], [address], 09/06/2025 12:51:07 Referral None recorded. Procedures None recorded. Surgeries None recorded. Imaging None recorded. Medication Orders None recorded. Patient TargetsNo targets recorded. Patient InstructionsNo instructions recorded. Reason for Referral None Reported. Results Created Date Observation Date Name Description Value Unit Range Abnormal Flag Note LastModifiedBy Organization Detail LastModifiedTime 02/27/2002/27/2025 URINA LYSIS , COMPL ETE color YELLOW yellow normal Not Available [address], [address], 02/27/2025 22:28:50 02/27/20 25 02/27/2025 URINA LYSIS , COMPL ETE appearance CLEAR clear normal Not Available [address], [address], 02/27/2025 22:28:50 02/27/20 25 02/27/2025 URINA LYSIS , COMPL ETE specific gravity 1.012 1.001- 1.035 normal Not Available [address], [address], 02/27/2025 22:28:50 02/27/20 25 02/27/2025 URINA LYSIS , COMPL ETE pH 7.5 5.0-8. 0 normal Not Available [address], [address], 02/27/2025 22:28:50 02/27/20 25 02/27/2025 URINA LYSIS , COMPL ETE glucose NEGATI VE negati ve normal Not Available [address], [address], 02/27/2025 22:28:50 02/27/20 25 02/27/2025 URINA LYSIS , COMPL ETE bilirubin NEGATI VE negati ve normal Not Available [address], [address], 02/27/2025 22:28:50 02/27/20 25 02/27/2025 URINA LYSIS , COMPL ETE ketones NEGATI VE negati ve normal Not Available [address], [address], 02/27/2025 22:28:50 02/27/20 25 02/27/2025 URINA LYSIS , COMPL ETE occult blood NEGATI VE negati ve normal Not Available [address], [address], 02/27/2025 22:28:50 02/27/20 25 02/27/2025 URINA LYSIS , COMPL ETE protein NEGATI VE negati ve normal Not Available [address], [address], 02/27/2025 22:28:50 02/27/20 25 02/27/2025 URINA LYSIS , COMPL ETE nitrite NEGATI VE negati ve normal Not Available [address], [address], 02/27/2025 22:28:50 02/27/20 25 02/27/2025 URINA LYSIS , COMPL ETE leukocyte esterase TRACE negati ve abnormal Not Available [address], [address], 02/27/2025 22:28:50 02/27/20 25 02/27/2025 URINA LYSIS , COMPL ETE WBC NONE SEEN /hpf < or = 5 normal Not Available [address], [address], 02/27/2025 22:28:50 02/27/20 25 02/27/2025 URINA LYSIS , COMPL ETE RBC NONE SEEN /hpf < or = 2 normal Not Available [address] [place], [address], 02/27/2025 22:28:50 02/27/20 25 02/27/2025 URINA LYSIS , COMPL ETE squamous epithelial cells 6-10 /hpf < or = 5 abnormal Not Available [address], [address], 02/27/2025 22:28:50 02/27/20 25 02/27/2025 URINA LYSIS , COMPL ETE bacteria NONE SEEN /hpf none seen normal Not Available [facility] [address], [address], 02/27/2025 22:28:50 02/27/20 25 02/27/2025 URINA LYSIS , COMPL ETE hyaline cast NONE SEEN /lpf none seen normal Not Available [address], [address], 02/27/2025 22:28:50 02/27/20 25 02/27/2025 URINA LYSIS , COMPL ETE note This urine was jim zed for the prese nce of WBC, RBC, bacte terry, casts , and other forme d eleme nts. Only those eleme nts seen were repor bruce. Not Available [address], [address], 02/27/2025 22:28:50 02/27/20 25 02/27/2025 CBC (INCL UDES DIFF/ PLT) white blood cell count 8.9 thous and/u L 3.8-10 .8 normal Not Available [address], [address], 02/27/2025 22:28:51 02/27/20 25 02/27/2025 CBC (INCL UDES DIFF/ PLT) red blood cell count 4.42 erick on/uL 3.80-5 .10 normal Not Available [address], [address], 02/27/2025 22:28:51 02/27/2002/27/2025 CBC (INCL UDES DIFF/ PLT) hemoglobin 13.2 g/dL 11.7-1 5.5 normal Not Available [facility] [address], [address], 02/27/2025 22:28:51 02/27/2002/27/2025 CBC (INCL UDES DIFF/ PLT) hematocrit 41.4 % 35.0-4 5.0 normal Not Available [facility] [address], [address], 02/27/2025 22:28:51 02/27/2002/27/2025 CBC (INCL UDES DIFF/ PLT) MCV 93.7 fL 80.0-1 00.0 normal Not Available [facility] [address], [address], 02/27/2025 22:28:51 02/27/2002/27/2025 CBC (INCL UDES DIFF/ PLT) MCH 29.9 pg 27.0-3 3.0 normal Not Available [address], [address], 02/27/2025 22:28:51 02/27/2002/27/2025 CBC (INCL UDES DIFF/ PLT) MCHC 31.9 g/dL 32.0-3 6.0 low For adult s, a sligh t decre ase in the calcu lated MCHC value (in the range of 30 to 32 g/dL) is most likel y not clini solomon houi ray t; eliana er, it shoul d be inter prete d with cauti on in [facility] (formerly [facility])[3] n with other red cell mariana eters and the patie nt's clini rajiv condi tion. Not Available [facility] [address], [address], 02/27/2025 22:28:51 02/27/20 25 02/27/2025 CBC (INCL UDES DIFF/ PLT) RDW 12.5 % 11.0-1 5.0 normal Not Available [address], [address], 02/27/2025 22:28:51 02/27/20 25 02/27/2025 CBC (INCL UDES DIFF/ PLT) platelet count 294 thous and/u L 140-40 0 normal Not Available [address], [address], 02/27/2025 22:28:51 02/27/20 25 02/27/2025 CBC (INCL UDES DIFF/ PLT) MPV 11.6 fL 7.5-12 .5 normal Not Available [address], [address], 02/27/2025 22:28:51 02/27/20 25 02/27/2025 CBC (INCL UDES DIFF/ PLT) absolute neutrophils 6408 cells /uL 1500-7 800 normal Not Available [address], [address], 02/27/2025 22:28:51 02/27/20 25 02/27/2025 CBC (INCL UDES DIFF/ PLT) absolute lymphocytes 1833 cells /uL 850-39 00 normal Not Available [address], [address], 02/27/2025 22:28:51 02/27/20 25 02/27/2025 CBC (INCL UDES DIFF/ PLT) absolute monocytes 481 cells /uL 200-95 0 normal Not Available [facility] [address], [address], 02/27/2025 22:28:51 02/27/20 25 02/27/2025 CBC (INCL UDES DIFF/ PLT) absolute eosinophils 151 cells /uL 15-500 normal Not Available [facility] [address], [address], 02/27/2025 22:28:51 02/27/20 25 02/27/2025 CBC (INCL UDES DIFF/ PLT) absolute basophils 27 cells /uL 0-200 normal Not Available [facility] [address], [address], 02/27/2025 22:28:51 02/27/20 25 02/27/2025 CBC (INCL UDES DIFF/ PLT) neutrophils 72 % normal Not Available [facility] [address], [address], 02/27/2025 22:28:51 02/27/20 25 02/27/2025 CBC (INCL UDES DIFF/ PLT) lymphocytes 20.6 % normal Not Available [address], [address], 02/27/2025 22:28:51 02/27/20 25 02/27/2025 CBC (INCL UDES DIFF/ PLT) monocytes 5.4 % normal Not Available [facility] [address], [address], 02/27/2025 22:28:51 02/27/20 25 02/27/2025 CBC (INCL UDES DIFF/ PLT) eosinophils 1.7 % normal Not Available [address], [address], 02/27/2025 22:28:51 02/27/20 25 02/27/2025 CBC (INCL UDES DIFF/ PLT) basophils 0.3 % normal Not Available [address], [address], 02/27/2025 22:28:51 02/27/20 25 02/27/2025 HEPAT ITIS B SURFA CE ANTIG EN W/REF L CONFI RM hepatitis B surface antigen NON-RE ACTIVE non-re active normal For addit ional infor sabrina roth e refer to http: //[facility] stdia gnost ics.c om/fa q/FAQ 202 (This link is being provi ded for infor matio nal/ educa jhonathan l purpo ses only. ) Not Available [facility] [address] [address] [place], [address], 02/27/2025 22:28:52 02/27/20 25 02/27/2025 HEPAT ITIS [...] a test for HCV RNA (test code 56249 ) is sugge sted. For addit ional percyr [facility] pleas e refer to http: //[facility] stdia gnost ics.c om/fa q/FAQ 22v1 (This link is being provi ded for infor matio nal/ educa jhonathan l purpo ses only. ) Not Available [facility] [address] [place], [address], 02/27/2025 22:28:53 02/27/2002/27/2025 RUBEL LA AB (IGG) [...] la virus . Not Available [facility] [address] [address] [place], [address], 02/27/2025 22:28:53 02/27/20 25 02/27/2025 HIV 1/2 [...] the state law prohi bits you from [place] any furth er discl osure of [...] n pleas e refer to http: //[facility] hayley raphael.que stdia gnost ics.c om/fa q/FAQ 106 (This link is being provi ded for infor matio nal/ educa jhonathan l purpo ses only. ) The perfo rmanc e of this assay has not been clini solomon valid ated in patie nts less than 2 years old. Not Available [facility] [address] [place], [address], 02/27/2025 22:28:54 02/27/2002/27/2025 RPR (DX) W/REF L TITER AND T. PALLI DUM AB, IA RPR (DX) w/refl titer and confirmatory testing NON-RE ACTIVE non-re active normal No labor atory evide nce of syphi lis. If recen t expos ure is suspe cted, submi t a new sampl e in 2-4 weeks . Not Available [facility] [address] [place], [address], 02/27/2025 22:28:55 02/27/20 25 02/27/2025 ANTIB EFREN [...] alloi mmuni zed pregn benjamin. Not Available [facility] [address] [address] [place], [address], 02/27/2025 22:28:56 02/27/2002/27/2025 ABO GROUP AND RH TYPE ABO group O Not Available [facility] [address] [address] [place], [address], 02/27/2025 22:28:57 02/27/2002/27/2025 ABO GROUP AND RH TYPE Rh type RH(D) POSITI VE For addit ional infor sabrina roth e refer to http: //[facility] hayley Rincon stDia gnost ics.c om/fa q/FAQ 111 (This link is being provi ded for infor amy trujillo/ educcatracho ring l purpo ses only. ) Not Available [facility] [address] [address] [place], [address], 02/27/2025 22:28:57 02/27/20 25 02/27/2025 DRUG MONIT OR, PANEL 1, SCREE N, URINE amphetamines NEGATI VE NG/mL <500 See Note A See Note A Not Available [facility] [address] [address] [place], [address], 02/27/2025 22:28:58 02/27/20 25 02/27/2025 DRUG MONIT OR, PANEL 1, SCREE N, URINE barbiturates NEGATI VE NG/mL <300 See Note A See Note A Not Available [facility] [address] [address] [place], [address], 02/27/2025 22:28:58 02/27/20 25 02/27/2025 DRUG MONIT OR, PANEL 1, SCREE N, URINE benzodiazepi duane NEGATI VE NG/mL <100 See Note A See Note A Not Available [facility] [address] [address] [address], [place], [address], 02/27/2025 22:28:58 02/27/20 25 02/27/2025 DRUG MONIT OR, PANEL 1, SCREE N, URINE cocaine metabolite NEGATI VE NG/mL <150 See Note A See Note A Not Available [facility] [address] [address] [address], [place], [address], 02/27/2025 22:28:58 02/27/20 25 02/27/2025 DRUG MONIT OR, PANEL 1, SCREE N, URINE marijuana metabolite NEGATI VE NG/mL <20 See Note A See Note A Not Available [facility] [address] [address] [address], [place], [address], 02/27/2025 22:28:58 02/27/20 25 02/27/2025 DRUG MONIT OR, PANEL 1, SCREE N, URINE methadone metabolite NEGATI VE NG/mL <100 See Note A See Note A Not Available [facility] [address] [address] [address], [place], [address], 02/27/2025 22:28:58 02/27/20 25 02/27/2025 DRUG MONIT OR, PANEL 1, SCREE N, URINE opiates NEGATI VE NG/mL <100 See Note A See Note A Not Available [facility] [address] [address] [address], [place], [address], 02/27/2025 22:28:58 02/27/20 25 02/27/2025 DRUG MONIT OR, PANEL 1, SCREE N, URINE oxycodone NEGATI VE NG/mL <100 See Note A See Note A Not Available [facility] [address] [address] [address], [place], [address], 02/27/2025 22:28:58 02/27/20 25 02/27/2025 DRUG MONIT OR, PANEL 1, SCREE N, URINE phencyclidin e NEGATI VE NG/mL <25 See Note A See Note A Not Available [address] [address] [address], [place], [address], 02/27/2025 22:28:58 02/27/20 25 02/27/2025 DRUG MONIT OR, PANEL 1, SCREE N, URINE creatinine 108.1 mg/dL > or = 20.0 Not Available [facility] [address] [address] [address], [place], [address], 02/27/2025 22:28:58 02/27/20 25 02/27/2025 DRUG MONIT OR, PANEL 1, SCREE N, URINE pH 7.7 4.5-9. 0 Not Available [address] [address] [address], [place], [address], 02/27/2025 22:28:58 02/27/20 25 02/27/2025 DRUG MONIT OR, PANEL 1, SCREE N, URINE oxidant NEGATI VE mcg/m L <200 Not Available [address] [address] [address], [place], [address], 02/27/2025 22:28:58 02/27/20 25 02/27/2025 DRUG MONIT [...] rmed by a defin itive harshal honeycutt. Healt kun Provi ders needi ng Inter preta tion yanci tance , pleas e conta ct us at 1.877 .40.R XTOX (1.87 [phone] ) M-F, 8am to 10pm EST Not Available [address], [address], 02/27/2025 22:28:59 02/27/20 25 02/27/2025 CULTU RE, URINE , ROUTI NE culture, urine, routine SEE NOTE CULTU RE, URINE , ROUTI NE Micro Numbe r: [id number] Test Statu s: Final Speci men Sourc e: Urine Speci men Quali ty: Adequ ate Resul t: No Growt h Not Available [address], [address], 02/27/2025 22:28:59 02/27/20 25 03/08/2025 THINP REP TIS PAP (REFL ) HPV MRNA E6/E7 clinical information: normal Pregn ant Not Available [address], [address], 03/08/2025 08:16:51 02/27/20 25 03/08/2025 THINP REP TIS PAP (REFL ) HPV MRNA E6/E7 LMP: normal NONE GIVEN Not Available [address], [address], 03/08/2025 08:16:51 02/27/2003/08/2025 THINP REP TIS PAP (REFL ) HPV MRNA E6/E7 prev. Pap: normal NONE GIVEN Not Available [address], [address], 03/08/2025 08:16:51 02/27/2003/08/2025 THINP REP TIS PAP (REFL ) HPV MRNA E6/E7 prev. BX: normal NONE GIVEN Not Available [address], [address], 03/08/2025 08:16:51 02/27/20 25 03/08/2025 THINP REP TIS PAP (REFL ) HPV MRNA E6/E7 source: normal Cervi x, Endoc ervix Not Available [address] [address] [place], [address], 03/08/2025 08:16:51 02/27/20 25 03/08/2025 THINP REP TIS PAP (REFL ) HPV MRNA E6/E7 statement of adequacy: normal Satis facto ry for evalu ation . Endoc ervic al/tr ansfo rmati on zone compo nent prese nt. Not Available [address] [address] [place], [address], 03/08/2025 08:16:51 02/27/2003/08/2025 THINP REP TIS PAP (REFL ) HPV MRNA E6/E7 general categorizati on: abnormal Cytol ogy Resul ts: Epith elial Cell Abnor malit y Not Available [address] [address] [place], [address], 03/08/2025 08:16:51 02/27/20 25 03/08/2025 THINP REP TIS PAP (REFL ) HPV MRNA E6/E7 interpretati on/result: abnormal Low Grade Squam ous Intra epith elial Lesio n (LSIL ) Not Available [address] [address] [address] , [place], [address], 03/08/2025 08:16:51 02/27/2003/08/2025 THINP REP TIS PAP (REFL ) HPV MRNA E6/E7 comment: normal This Pap test has been evalu ated with compu ter yanci bruce techn ology . Sugge st clini rajiv corre latio n and follo w-up as clini solomon appro priat e Not Available [address] [address] [place], [address], 03/08/2025 08:16:51 02/27/20 25 03/08/2025 THINP REP TIS PAP (REFL ) HPV MRNA E6/E7 cytotechnolo gist: normal KMS, CT( CP) CT Scree pat locat ion: [facility] [address] [address] [place] [address] Not Available [facility] [address] [address] [place], [address], 03/08/2025 08:16:51 02/27/2003/08/2025 THINP REP TIS PAP (REFL ) HPV MRNA E6/E7 pathologist: normal Alisha donavon monique M.D., Board Certi fied in Anato jesús Patho logy and Cytop athol ogy. Phone : [phone] (elec troni c signa ture) Patho logis t Relea se Date/ Time: 03/06 09:25 AM Not Available [facility] [address] [address] [place], [address], 03/08/2025 08:16:51 02/27/2003/08/2025 THINP REP TIS PAP (REFL ) HPV MRNA E6/E7 comment EXPLA NATOR Y NOTE: The Pap is a scree pat test for cervi rajiv cance r. It is not a diagn ostic test and is subje ct to false negat brine and false posit brien resul ts. It is most relia ble when a satis facto ry sampl e, regul jamaal obtai ana, is submi tted with relev ant clini rajiv findi ngs and histo ry, and when the Pap resul t is evalu ated along with histo kierra and curre nt clini rajiv infor matio n. Not Available [facility] [address] [address] [place], [address], 03/08/2025 08:16:51 02/27/2003/08/2025 HPV MRNA E6/E7 HPV MRNA E6/E7 Not [...] sabrina roth e refer to http: //[facility] hayley raphael.que stdia gnost ics.c om/fa q/FAQ 129v1 (This link if provi ded for infor amy raphael/ educa jhonathan monique purpo ses only. ) Not Available [facility] [address] [place], [address], 03/08/2025 08:16:53 02/27/20 25 02/26/2025 CT + NG + TV, DNA, urine /swab Chlamydia negati ve Not Available [facility] ([facility]) [address] [place], [address], 02/25/2025 18:55:26 02/27/20 25 02/26/2025 CT + NG + TV, DNA, urine /swab Gonorrhea negati ve Not Available [facility] ([facility]) [address] [place], [address], 02/25/2025 18:55:26 02/27/20 25 02/26/2025 CT + NG + TV, DNA, urine /swab Trichomonas negati ve Not Available [facility] ([facility]) [address] [place], [address], 02/25/2025 18:55:26 07/02/20 25 07/02/2025 CBC WBC 11.1 x10 4.0-10 .5 high Not Available [facility] [address] [place] [address], [address], 07/02/2025 10:24:57 07/02/20 25 07/02/2025 CBC RBC 3.96 x10 3.50-5 .50 Not Available [facility] [address] [facility], [place], [address], 07/02/2025 10:24:57 07/02/20 25 07/02/2025 CBC HGB 12.0 g/dL 12.0-1 6.0 Not Available [facility] [address] [facility], [place], [address], 07/02/2025 10:24:57 07/02/2007/02/2025 CBC HCT 37.1 % 37.0-4 7.0 Not Available [facility] [address] [facility], [place], [address], 07/02/2025 10:24:57 07/02/20 25 07/02/2025 CBC MCV 93.8 fL 80.0-9 9.9 Not Available [facility] [address] [facility] [address] [facility] [address], [place], [address], 07/02/2025 10:24:57 07/02/20 25 07/02/2025 CBC MCH 30.4 pg 27.0-3 2.0 Not Available [facility] [address] [facility] [address] [facility], [place], [address], 07/02/2025 10:24:57 07/02/20 25 07/02/2025 CBC MCHC 32.4 g/dL 32.0-3 6.0 Not Available [facility] [address] [facility] [address] [facility] [address], [place], [address], 07/02/2025 10:24:57 07/02/2007/02/2025 CBC RDW 12.9 % 11.5-1 4.5 Not Available [facility] [address] [facility] [address] [facility] [address], [place], [address], 07/02/2025 10:24:57 07/02/20 25 07/02/2025 CBC plt 227.7 x10 140.0- 451.0 Not Available [facility] [address] [facility] [address] [facility] [address], [place], [address], 07/02/2025 10:24:57 07/02/20 25 07/02/2025 CBC lymphocytes % 15.5 % 20.0-5 0.0 low Not Available [facility] [address] [facility] [address] [facility], [place], [address], 07/02/2025 10:24:57 07/02/20 25 07/02/2025 CBC granulcytes % 78.3 % 30.0-7 0.0 high Not Available [facility] [address] [facility] [address], [place], [address], 07/02/2025 10:24:57 07/02/20 25 07/02/2025 CBC monocytes % 4.2 % 2.0-16 .0 Not Available [facility] [address] [facility] [address], [place], [address], 07/02/2025 10:24:57 07/02/20 25 07/02/2025 CBC granulcytes# 8.7 x10 Not Jenny ilable [facility] [address] [facility] [address], [place], [address], 07/02/2025 10:24:57 07/02/20 25 07/02/2025 CBC lymphocytes # 1.7 x10 Not Available [facility] [address] [facility] [address], [place], [address], 07/02/2025 10:24:57 07/02/20 25 07/02/2025 CBC monocytes # 0.5 x10 Not Avai lable [facility] [address] [facility], [place], [address], 07/02/2025 10:24:57 07/02/20 25 07/02/2025 GLUCO SE SCREE N glucose screen 135.0 mg/dL Not Available [facility] [address], [place], [address], 07/02/2025 10:30:30 07/11/20 25 07/11/2025 GLUCO SE SCREE N glucose screen 133.0 mg/dL Not Available [facility] [address] [facility] [address], [place], [address], 07/11/2025 10:37:03 08/27/20 25 09/02/2025 CULTU RE, GROUP B STREP WITH SUSCE PTIBI LITY culture, group B strep with susceptibili ty SEE NOTE abnormal CULTU RE, GROUP B STREP WITH SUSCE PTIBI LITY Micro Numbe r: [id number] Test Statu s: Final Speci men [...] See Thera py Comme nts Not Available [facility] [address] [address], [place], [address], 09/02/2025 14:26:34 09/06/20 25 09/06/2025 CBC WBC 9.9 x10 4.0-10 .5 Not Available [facility] [address], [place], [address], 09/06/2025 09:32:26 09/06/20 25 09/06/2025 CBC RBC 4.29 x10 3.50-5 .50 Not Available [facility] [address], [place], [address], 09/06/2025 09:32:26 09/06/20 25 09/06/2025 CBC HGB 12.6 g/dL 12.0-1 6.0 Not Available [facility] [address], [place], [address], 09/06/2025 09:32:26 09/06/20 25 09/06/2025 CBC HCT 39.4 % 37.0-4 7.0 Not Available [facility] [address], [place], [address], 09/06/2025 09:32:26 09/06/20 25 09/06/2025 CBC MCV 91.9 fL 80.0-9 9.9 Not Available [facility] [address] [facility], [place], [address], 09/06/2025 09:32:26 09/06/20 25 09/06/2025 CBC MCH 29.3 pg 27.0-3 2.0 Not Available [facility] [address], [place], [address], 09/06/2025 09:32:26 09/06/20 25 09/06/2025 CBC MCHC 31.9 g/dL 32.0-3 6.0 low Not Available [facility] [address] [facility], [place], [address], 09/06/2025 09:32:26 09/06/20 25 09/06/2025 CBC RDW 13.2 % 11.5-1 4.5 Not Available [facility] [address] [facility] [address] [facility] [address], [place], [address], 09/06/2025 09:32:26 09/06/20 25 09/06/2025 CBC plt 216.3 x10 140.0- 451.0 Not Available [facility] [address] [facility] [address] [facility], [place], [address], 09/06/2025 09:32:26 09/06/20 25 09/06/2025 CBC lymphocytes % 21.4 % 20.0-5 0.0 Not Available [facility] [address] [facility] [address], [place], [address], 09/06/2025 09:32:26 09/06/20 25 09/06/2025 CBC granulcytes % 70.6 % 30.0-7 0.0 high Not Available [facility] [address] [facility] [address], [place], [address], 09/06/2025 09:32:26 09/06/20 25 09/06/2025 CBC monocytes % 5.8 % 2.0-16 .0 Not Available [facility] [address] [facility] [address], [place], [address], 09/06/2025 09:32:26 09/06/20 25 09/06/2025 CBC granulcytes# 7.0 x10 Not Jenny ilable [facility] [address] [facility] [address], [place], [address], 09/06/2025 09:32:26 09/06/20 25 09/06/2025 CBC lymphocytes # 2.1 x10 Not Available [facility] [address] [facility] [address] [facility], [place], [address], 09/06/2025 09:32:26 09/06/20 25 09/06/2025 CBC monocytes # 0.6 x10 Not Avai lable [facility] [address] [facility] [address], [place], [address], 09/06/2025 09:32:26 09/06/20 25 09/06/2025 CMP (FEMA LE) glucose 84.0 mg/dL 60.0-9 9.0 Not Available [facility] [address] [facility], [place], [address], 09/06/2025 09:46:52 09/06/20 25 09/06/2025 CMP (FEMA LE) BUN (blood urea nitrogen) 5.0 mg/dL 10.0-2 6.0 low Not Available [facility] [address] [facility], [place], [address], 09/06/2025 09:46:52 09/06/20 25 09/06/2025 CMP (FEMA LE) creatinine (serum) 0.5 mg/dL 0.4-1. 5 Not Available [facility] [address] [facility], [place], [address], 09/06/2025 09:46:52 09/06/20 25 09/06/2025 CMP (FEMA LE) BUN/creatini ne ratio 10.00 ratio Not Available [facility] [address] [facility], [place], [address], 09/06/2025 09:46:52 09/06/20 25 09/06/2025 CMP (FEMA LE) eGFR calculated 154.0 Not Available [facility] [address] [facility], [place], [address], 09/06/2025 09:46:52 09/06/20 25 09/06/2025 CMP (FEMA LE) total protein 7.0 g/dL 6.0-8. 5 Not Available [facility] [address] [facility], [place], [address], 09/06/2025 09:46:52 09/06/2009/06/2025 CMP (FEMA LE) total bilirubin 0.6 mg/dL 0.2-1. 3 Not Available [facility] [address] [facility], [place], [address], 09/06/2025 09:46:52 09/06/2009/06/2025 CMP (FEMA LE) albumin 4.1 g/dL 3.5-5. 5 Not Available [facility] [address] [facility], [place], [address], 09/06/2025 09:46:52 09/06/20 25 09/06/2025 CMP (FEMA LE) globulin 2.9 calc Not Available [facility] [address] [place] [facility], [place], [address], 09/06/2025 09:46:52 09/06/20 25 09/06/2025 CMP (FEMA LE) AST (SGOT) 33.0 U/L 0.0-46 .0 Not Available [facility] [address] [facility], [place], [address], 09/06/2025 09:46:52 09/06/2009/06/2025 CMP (FEMA LE) altv (SGPT) 22.0 U/L 13.0-6 9.0 normal Not Available [facility] [address] [facility], [place], [address], 09/06/2025 09:46:52 09/06/20 25 09/06/2025 CMP (FEMA LE) A/G ratio 1.4 ratio Not Available [facility] [address] [facility] 1, [place], [address], 09/06/2025 09:46:52 09/06/2009/06/2025 CMP (FEMA LE) ALP phos 160.0 U/L 30.0-1 40.0 abnormal Not Available [facility] [address] [facility] 1, [place], [address], 09/06/2025 09:46:52 09/06/2009/06/2025 CMP (FEMA LE) calcium 9.0 mg/dL 8.4-10 .5 Not Available [facility] [address] [facility] 1, [place], [address], 09/06/2025 09:46:52 09/06/2009/06/2025 CMP (FEMA LE) sodium 137.0 mmol/ L 136.0- 145.0 Not Available [facility] [address] [facility] 1, [place], [address], 09/06/2025 09:46:52 09/06/2009/06/2025 CMP (FEMA LE) potassium 3.4 mmol/ L 3.5-5. 1 low Not Available [facility] [address] [facility] 1, [place], [address], 09/06/2025 09:46:52 09/06/2009/06/2025 CMP (FEMA LE) chloride 105.0 mmol/ L 98.0-1 10.0 normal Not Available [facility] [address] [facility] 1, [place], [address], 09/06/2025 09:46:52 09/06/2009/06/2025 CMP (FEMA LE) C02 24.0 mmol/ L 22.0-3 1.0 Not Available [facility] [address] [facility] 1, [place], [address], 09/06/2025 09:46:52 09/06/20 25 09/06/2025 CMP (FEMA LE) anion gap 8.0 calc Not Available [facility] [address] [place] [facility], [place], [address], 09/06/2025 09:46:52 09/06/20 25 09/06/2025 CMP (FEMA LE) osmolality 279.9 calc Not Available [facility] [address] [facility] 1, [place], [address], 09/06/2025 09:46:52 09/06/2009/06/2025 LIPID PROFI LE (FEMA LE) cholesterol 195.0 mg/dL 0.0-20 0.0 Not Available [facility] [address] [facility] 1, [place], [address], 09/06/2025 09:46:55 09/06/20 25 09/06/2025 LIPID PROFI LE (FEMA LE) trig 114.0 mg/dL 0.0-15 0.0 Not Available [facility] [address] [facility] 1, [place], [address], 09/06/2025 09:46:55 09/06/20 25 09/06/2025 LIPID PROFI LE (FEMA LE) HDL - direct 74.0 mg/dL >40.0 Not Available [facility] [address] [facility] 1, [place], [address], 09/06/2025 09:46:55 09/06/20 25 09/06/2025 LIPID PROFI LE (FEMA LE) VLDL - direct 22.8 mg/dL Not Available [facility] [address] [facility] 1, [place], [address], 09/06/2025 09:46:55 11/14/09/06/2025 LIPID PROFI LE (FEMA LE) LDL - direct 98.2 mg/dL 0.0-13 0.0 Not Available [facility] [address] [facility], [place], [address], 09/06/2025 09:46:55 09/06/20 25 09/06/2025 TSH TSH 1.69 uIU/m L 0.49-3 .82 Not Available [facility] [address] [facility] 1, [place], [address], 09/06/2025 10:02:31 09/06/20 25 09/06/2025 HBA1C hemaglobin A1C 5.4 4.2-6. 5 Not Available [facility] [address] [facility] 1, [place], [address], 09/06/2025 12:51:07 02/19/20 25 02/12/2025 US, obste tric, 1st trime ster No observ ation record ed. [email or web address] Not Available 02/19 09:09:34 04/25/20 25 04/18/2025 US, obste tric, follo w-up No observ ation record ed. [email or web address] [facility] [address] [place], [address], 04/29/2025 09:24:34 05/11/20 25 05/07/2025 US, obste tric, 2nd trime ster No observ ation record ed. [facility] [address] [place], [address], 05/13/2025 17:57:21 07/05/20 25 07/02/2025 imagi ng/di agnos tic resul t No observ ation record ed. [facility] [address] [place], [address], 07/09/2025 10:35:54 Result Notes None recorded. Problems Name Problem SNOMED Code Status Onset Date Resolution Date Notes Provider Name and Address Organization Details Recorded Time Rheumatoid arthritis 66901704 Active 2022 KERWIN roper [facility] 5 14:16:25 Pain of knee region 6214206247 Completed 202301/24/2025 KERWIN roper [facility] 5 14:16:23 Family history of diabetes mellitus 120928058 Active 2023 KERWIN roper [facility] 5 14:16:18 Normal 03681652 Active 2024 ROXI PLUMMER [facility] 5 10:22:35 Normal 15644891 Active 2024 ROXI PLUMMER null [facility] 5 10:22:35 Placenta previa partialis 28003122 Active 2024 Alvaro Angelo MD [address] [place] [address], [phone], [facility] 5 02:46:26 Low-lying placenta 351082463 Active 2024 Alvaro Angelo MD [address] [place] [address], [phone], [facility] 5 11:36:47 Problem Notes None recorded. Procedures Surgical History Date Name Laterality Status Provider Name and Address Organization Details Recorded Time 02/27/20 Date of Last Pap Smear [facility] 09/02/2025 18:39:21 02/27/20 liquid based cervical cytology screening [facility] 09/02/2025 18:39:54 01/31/20 24 colposcopy completed [facility], LAlisaCRemigio 01/24/2025 14:17:49 01/31/20 24 hysteroscopy completed [facility], LRemigioLRemigioCRemigio 01/24/2025 14:18:46 arthroscopy of left knee joint completed [facility], SaschaCRemigio 01/24/2025 14:17:01 cholecystectomy completed [facility], LRemigioLRemigioCRemigio 01/24/2025 14:17:33 Imaging Results None recorded. Procedure Notes None recorded. Medical Equipment None Reported. Allergies Allergen ID Allergen Name Allergen Category Reaction Reaction Severity Criticality Documentation Date Start Date Code Code System Note Provider Name and Address Organization Details Recorded Time 26102 Bactrim medicatio n hives moderate Not available 05/21/2023 20060 9 RxNorm TREBA NEUSCHGARNTN [facility] 15:30:03 39740 Product containin g penicilli n (product) medicatio n hives moderate Not available 05/21/2023 02385 8001 SNOMED TREBA NEUSCHGRANTN KAVITHA [facility] 15:30:03 47727 Augmentin medicatio n hives moderate Not available 01/24/2025 09591 2 RxNorm [facility] 5 14:19:18 07995 Celebrex medicatio n other moderate Not available 01/24/2025 88378 7 RxNorm TREBA NEUSCHWAN [facility] 15:30:03 70391 Substance with sulfonami de structure and antibacte rial mechanism of action (substanc e) medicatio n hives moderate Not available 04/18/2025 99727 8003 SNOMED TREBA NEUSCHWAN KAVITHA [facility] [place] [facility]. 5 15:30:03 99304 amoxicill in / clavulana te medicatio n hives Not available high 09/06/20252022 92075 RxNorm Yessy ates PCN and amoxi cilli n fine Not Available anna - External Data Service - prod 5 07:58:34 88245 celecoxib medicatio n Not available Not available high 09/06/20252022 39609 7 RxNorm Not Available anna - External Data Service - prod 5 07:58:34 08947 amoxicill in medicatio n Not available Not available low 09/27/20252023 723 RxNorm Not Available anna - External Data Service - prod 5 13:40:54 60635 clavulani c acid Not available Not available Not available low 09/27/20252023 05154 RxNorm Not Available anna - External Data Service - prod 13:40:54 47321 sulfameth oxazole medicatio n Not available Not available Not available 09/27/20252023 82208 RxNorm Not Available anna - External Data Service - prod 13:40:54 96427 trimethop rim medicatio n Not available Not available Not available 09/27/20252023 12950 RxNorm Not Available anna - External Data [...] TAKE 1 TABLET BY MOUTH ONCE DAILY 12/17 /2024 completed Not Available Not Available [...] Updated DateTime 5 170.18 cm 38.1 kg/m2 849671. 95 g 95 /min 98 % 120/70 mm[Hg] Leigh Pickett [facility] 5 08:20:14 Social History Question Answer Notes LastModified by Organizat ion Details LastModified Time Tobacco Smoking Status Former Smoker ANTONIO roper [facility] 01/24/2023 10:09:31 Are You Blind Or Do You Have Difficulty Seeing? No Information not available 01/24/2025 Are You Deaf Or Do You Have Serious Difficulty Hearing? No [email or web address] Information not available 01/24/2023 When Did You Quit Smoking? 1-5yearssinc elastcigaret te [email or web address] Information not available 01/24/2023 Do You Work In Healthcare? No Information not available 01/24/2025 What Was The Date Of Your Most Recent Tobacco Screening? 03/26/2025 [email or web address] Information not available 03/26/2025 What Is Your Relationship Status? Information not available 01/24/2025 Have You Recently Traveled Abroad? No [email or web address] Information not available 01/24/2023 Do You Have [...] independently without assistance or assistive devices? YESWOREST [email or web address] Information not available 01/24/2023 Do you have difficulty doing errands alone? No Information not available 01/24/2023 Are you able to care for yourself independently? 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 No [email or web address] Information not available 01/24/2023 Do you or have you ever used e-cigarettes or vape? Former user of electronic cigarettes Information not available 01/24/2025 Mental Status Question Answer Note LastModified by Organization D etails LastModified Time Do you have difficulty concentrating, remembering or making decisions? No [email or web address] Information no t available 01/24/2023 Family History Relationship Description Onset Age of this Age Resolved Age Notes LastModified by Organization Details LastModified Time Father Diabetes mellitus [email or web address] Not available 2023 09:43:45 Paternal Grandmother Malignant neoplasm of ovary [email or web address] Not available 10:54:13 Notes:Cancer Maternal Grandf ather: Brain Cancer Paternal Grandmother: Ovarian Cancer Medical History Condition Response Coronary Artery Disease N Other N Gout N Kidney Stones N Blood Diseases N Hyperthyroidism N Breast Cancer N Blood Transfusion N Depression N Hypothyroidism N Lung Disease [...] Recorded Time IPV 09/28/2000 completed [facility] 10/09/2024 09:35:10 MMR 04/11/1996 kaushal roper [facility] 10/09/2024 09:35:10 MMR 09/28/2000 [facility]aushal [facility]per [facility] 10/09/2024 09:35:10 Tdap 11/17/2010 completed Susan Wilson null, [facility] 10/09/2024 09:35:10 Tdap 02/20/2015 completed Susan Wilson null, [facility] 10/09/2024 09:35:10 Hep B, unspecified formulation 1995 completed Susan Wilson null, [facility] 10/09/2024 09:35:10 Hep B, unspecified formulation 02/28/1996 completed Susan Wilson null, [facility] 10/09/2024 09:35:10 Hep B, unspecified formulation 1995 completed Susan Wilson null, [facility] 10/09/2024 09:35:10 OPV, trivalent 1995 completed Susan Wilson null, [facility] 10/09/2024 09:35:10 OPV, trivalent 02/28/1996 completed Susan Wilson null, [facility] 10/09/2024 09:35:10 OPV, trivalent 1995 completed Susan Wilson null, [facility] 10/09/2024 09:35:10 DTP-Hib 11/29/1996 completed Susan Wilson null, [facility] 10/09/2024 09:35:10 DTP-Hib 1995 completed Susan Wilson null, [facility] 10/09/2024 09:35:10 DTP-Hib 02/28/1996 completed Susan Wilson null, [facility] 10/09/2024 09:35:10 DTP-Hib 1995 completed Susan Wilson null, [facility]io[facility]. 10/09/2024 09:35:10 DTaP 09/28/2000 completed Susan Wilson [email or web address] [facility], Jose. 10/09/2024 09:35:10 Past Encounters Encounter ID Performer Location Encounter Start Date Encounter Closed Date Diagnosis/Indication Diagnosis SNOMED-CT Code Diagnosis ICD10 Code Diagnosis IMO Codes Diagnosis Note [id number] Alvaro Angelo MD [facility] ([facility]) [address] [place], [place] [address] 08/13/2025 10:44:33 08/13/2025 11:38:15 Normal 42370055 Z34.83 Gestation period, 34 weeks 23952440 Z3A.34 [id number] [id number] Alvaro Angelo MD [facility] ([facility]) [address] [place] [address] 5 08/27/2025 10:35:57 08/27/2025 11:34:41 Normal 48124396 Z34.83 Gestation period, 36 weeks 13809993 Z3A.36 [id number] Alvaro Angelo MD [facility] ([facility]) [address] [place] [address] 5 09/03/2025 10:32:59 09/03/2025 11:48:15 Multigravida 990108154 Z34.83 38584820 Gestation period, 37 weeks 79588178 Z3A.37 [id number] Giovani Yu MD [facility] ([facility]) [address] [place], [place] [address] 09/06/2025 07:58:00 09/11/2025 03:58:55 Adult health examination 225520459 Z00.00 [id number] LISSETH SETHI [facility] ([facility]) [address] [place] [address] 5 09/06/2025 07:58:35 09/11/2025 03:58:55 Physical examination 1332885 Z00.00 [id number] Health Concerns Section Related Observation LastModified by Organization Detai ls LastModified Time None Recorded Concern Status LastModified by Organization Details LastModified Time None Recorded Payers None recorded. 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 Status 01/25/20 1 O Positive Damián [...] Resolution Snomed Code Not e Normal 02/25/2025 06552956 Harshil Calculation Initial Harshil Date Initial Exam Date Initial Exam Provider Initial Ultrasound Date Last Menstrual Period Date Ultra Sound Weeks Gestation 09/19/2025 01/24/2025 02/12/2025 12/13/2024 8 Eighteen To Twenty Week Harshil Update Ultra Sound Date Fundal Height At Umbil Quickening Date Ultra Sound Latest Weeks Gestation Final Harshil Confirmed By Final Harshil Confirmed Date Final Harshli Date Ultra Sound Latest Days Gestation 0 02/14/2025 09/24/20 0 Pre-antoinette Flowsheet Flowsheet Date 01/24/2025 Sierra Score Blood Edema Fundus Height Fundus Units Glucose Ketones Leukocytes Nitrite Labor Signs Protein Cervic Dilation Cervic Effacement Cervic Station Type Weight in lbs Pre/Post Dialysis Refused Weight 227.238533957873 BP Diastolic BP Location Tested BP Systolic [...] Weight in lbs Pre/Post Dialysis Refused Weight 221.859441353583 BP Diastolic BP Location Tested BP Systolic [...] Weight in lbs Pre/Post Dialysis Refused Weight 221.527748758291 BP Diastolic BP Location Tested BP Systolic [...] Weight in lbs Pre/Post Dialysis Refused Weight 225.789713882885 BP Diastolic BP Location Tested BP Systolic [...] Weight in lbs Pre/Post Dialysis Refused Weight 230.367779135282 BP Diastolic BP Location Tested BP Systolic BP Type 62 L arm 106 Fetus Heart Rate Present A 148 Present Fetus Movement A Yes Comments heartburn Flowsheet Date 06/18/2025 Sierra Score Blood Edema Fundus Height Fundus Units Glucose Ketones Leukocytes Nitrite Labor Signs Protein Cervic Dilation Cervic Effacement Cervic Station Type Weight in lbs Pre/Post Dialysis Refused Weight 229.4849644561 BP Diastolic BP Location Tested BP Systolic [...] Present Fetus Movement Comments Flowsheet Date 07/02/2025 Sirera Score Blood Edema Fundus Height Fundus Units [...] Weight in lbs Pre/Post Dialysis Refused Weight 234.348921668267 BP Diastolic BP Location Tested BP Systolic [...] Weight in lbs Pre/Post Dialysis Refused Weight 232.890727632222 BP Diastolic BP Location Tested BP Systolic [...] Weight in lbs Pre/Post Dialysis Refused Weight 236.159087416247 BP Diastolic BP Location Tested BP Systolic BP Type 76 120 Fetus Heart Rate Present A 144 Present Fetus Movement A Yes Comments mild swelling, heartburn int ermittent Flowsheet Date 08/13/2025 Sierra Score Blood Edema Fundus Height Fundus Units Glucose Ketones Leukocytes Nitrite Labor Signs Protein Cervic Dilation Cervic Effacement Cervic Station 34 cm none trace Gibson Garnett neg Type Weight in lbs Pre/Post Dialysis Refused Weight 239.423539452849 BP Diastolic BP Location Tested BP Systolic [...] Weight in lbs Pre/Post Dialysis Refused Weight 241.967894973709 BP Diastolic BP Location Tested BP Systolic [...] Weight in lbs Pre/Post Dialysis Refused Weight 241.406043135799 BP Diastolic BP Location Tested BP Systolic [...] Weight in lbs Pre/Post Dialysis Refused Weight 243.886158374038 BP Diastolic BP Location Tested BP Systolic BP Type 70 120 Fetus Heart Rate Present Fetus Movement Comments Flowsheet Date 09/10/2025 Sierra Score Blood Edema Fundus Height Fundus Units Glucose Ketones Leukocytes Nitrite Labor Signs Protein Cervic Dilation Cervic Effacement Cervic Station none trace Negative Gibson Garnett neg 2cm 70% -3 Type Weight in lbs Pre/Post Dialysis Refused Weight 243.129498264431 BP Diastolic BP Location Tested BP Systolic [...] Weight in lbs Pre/Post Dialysis Refused Weight 242.979108765413 BP Diastolic BP Location Tested BP Systolic BP Type 70 122 Fetus Heart Rate Present A 164 Present Fetus Movement A Yes Comments low back pain, vaginal press ure, swelling in hands/feet Flowsheet Date 09/24/2025 Sierra Score Blood Edema Fundus Height Fundus Units Glucose Ketones Leukocytes Nitrite Labor Signs Protein Cervic Dilation Cervic Effacement Cervic Station none 1+ Negative Gibson Garnett trace 3cm 70% -4 Type Weight in lbs Pre/Post Dialysis Refused Weight 244.806054191610 BP Diastolic BP Location Tested BP Systolic [...] Weight in lbs Pre/Post Dialysis Refused Weight 248.540347784506 BP Diastolic BP Location Tested BP Systolic [...] Estim ated Date of Delivery false Thalassemia (Faroese, Tongan, Mediterranean, Or Background): MCV < 80 false Neural Tube Defect (Meningomyelocele, Spina Bifi da, Or Anencephaly) false Congenital Heart Defect false Down Syndrome false Maco-Sachs (eg, Baptism, Cajun, Algerian-Lebanese) f alse Dustin Disease false Sickle Cell [...]
--- OUTSIDE RECORDS SUMMARY | 2025-09-30 23:40 | XMS_ITS | Continuity of Care Document ---
Author Organization HILTON Myers [facility] [place], [facility] [place] ([facility]) Address [address] [place] [address] Assessment No assessment recorded. Plan of Treatment Reminders Order Date Submit Date Provider Last Modified By Organization Details Last Modified Time Details Appointments POST-PA RTUM VISIT 026 11:00AM Alvaro Angelo MD Not available Not available Not available Lab glucose , QN [mass/v olume], blood 025 025 [facility], [address] [facility], [facility], [place], [address], 07/11/2025 10:37:03 Referral None recorde d. Procedures None recorde d. Surgeries None recorde d. Imaging None recorde d. Medication Orders None recorde d. Patient TargetsNo targets recorded. Patient InstructionsNo instructions recorded. Reason for Referral None Reported. Results Created Date Observation Date Name Description Value Unit Range Abnormal Flag Note LastModifiedBy Organization Detail LastModifiedTime 02/27/2002/27/2025 URINA LYSIS , COMPL ETE color YELLOW yellow normal Not Available [facility] [address] [place], [address], 02/27/2025 22:28:50 02/27/20 25 02/27/2025 URINA LYSIS , COMPL ETE appearance CLEAR clear normal Not Available [facility] [address] [place], [address], 02/27/2025 22:28:50 02/27/20 25 02/27/2025 URINA LYSIS , COMPL ETE specific gravity 1.012 1.001- 1.035 normal Not Available [address], [address], 02/27/2025 22:28:50 02/27/20 25 02/27/2025 URINA LYSIS , COMPL ETE pH 7.5 5.0-8. 0 normal Not Available [address], [address], 02/27/2025 22:28:50 02/27/20 25 02/27/2025 URINA LYSIS , COMPL ETE glucose NEGATI VE negati ve normal Not Available [address], [address], 02/27/2025 22:28:50 02/27/20 25 02/27/2025 URINA LYSIS , COMPL ETE bilirubin NEGATI VE negati ve normal Not Available [facility] [address], [address], 02/27/2025 22:28:50 02/27/20 25 02/27/2025 URINA LYSIS , COMPL ETE ketones NEGATI VE negati ve normal Not Available [facility] [address], [address], 02/27/2025 22:28:50 02/27/20 25 02/27/2025 URINA LYSIS , COMPL ETE occult blood NEGATI VE negati ve normal Not Available [facility] [address], [address], 02/27/2025 22:28:50 02/27/20 25 02/27/2025 URINA LYSIS , COMPL ETE protein NEGATI VE negati ve normal Not Available [facility] [address], [address], 02/27/2025 22:28:50 02/27/20 25 02/27/2025 URINA LYSIS , COMPL ETE nitrite NEGATI VE negati ve normal Not Available [address], [address], 02/27/2025 22:28:50 02/27/20 25 02/27/2025 URINA LYSIS , COMPL ETE leukocyte esterase TRACE negati ve abnormal Not Available [address], [address], 02/27/2025 22:28:50 02/27/20 25 02/27/2025 URINA LYSIS , COMPL ETE WBC NONE SEEN /hpf < or = 5 normal Not Available [address], [address], 02/27/2025 22:28:50 02/27/20 25 02/27/2025 URINA LYSIS , COMPL ETE RBC NONE SEEN /hpf < or = 2 normal Not Available [address], [address], 02/27/2025 22:28:50 02/27/20 25 02/27/2025 URINA LYSIS , COMPL ETE squamous epithelial cells 6-10 /hpf < or = 5 abnormal Not Available [address], [address], 02/27/2025 22:28:50 02/27/20 25 02/27/2025 URINA LYSIS , COMPL ETE bacteria NONE SEEN /hpf none seen normal Not Available [address], [address], 02/27/2025 22:28:50 02/27/20 25 02/27/2025 URINA LYSIS , COMPL ETE hyaline cast NONE SEEN /lpf none seen normal Not Available [address], [address], 02/27/2025 22:28:50 02/27/20 25 02/27/2025 URINA LYSIS , COMPL ETE note This urine was jim zed for the prese nce of WBC, RBC, bacte terry, casts , and other forme d eleme nts. Only those eleme nts seen were repor bruce. Not Available [address], [address], 02/27/2025 22:28:50 02/27/20 25 02/27/2025 CBC (INCL UDES DIFF/ PLT) white blood cell count 8.9 thous and/u L 3.8-10 .8 normal Not Available [facility] [address], [address], 02/27/2025 22:28:51 02/27/20 25 02/27/2025 CBC (INCL UDES DIFF/ PLT) red blood cell count 4.42 erick on/uL 3.80-5 .10 normal Not Available [facility] [address], [address], 02/27/2025 22:28:51 02/27/20 25 02/27/2025 CBC (INCL UDES DIFF/ PLT) hemoglobin 13.2 g/dL 11.7-1 5.5 normal Not Available [address], [address], 02/27/2025 22:28:51 02/27/20 25 02/27/2025 CBC (INCL UDES DIFF/ PLT) hematocrit 41.4 % 35.0-4 5.0 normal Not Available [facility] [address], [address], 02/27/2025 22:28:51 02/27/20 25 02/27/2025 CBC (INCL UDES DIFF/ PLT) MCV 93.7 fL 80.0-1 00.0 normal Not Available [facility] [address], [address], 02/27/2025 22:28:51 02/27/20 25 02/27/2025 CBC (INCL UDES DIFF/ PLT) MCH 29.9 pg 27.0-3 3.0 normal Not Available [facility] [address], [address], 02/27/2025 22:28:51 02/27/20 25 02/27/2025 CBC (INCL UDES DIFF/ PLT) MCHC 31.9 g/dL 32.0-3 6.0 low For adult s, a sligh t decre ase in the calcu lated MCHC value (in the range of 30 to 32 g/dL) is most likel y not clini solomon signi fican t; eliana er, it shoul d be inter prete d with cauti on in [facility] n with other red cell mariana eters and the patie nt's clini rajiv condi tion. Not Available [facility] [address], [address], 02/27/2025 22:28:51 02/27/20 25 02/27/2025 CBC (INCL UDES DIFF/ PLT) RDW 12.5 % 11.0-1 5.0 normal Not Available [facility] [address], [address], 02/27/2025 22:28:51 02/27/20 25 02/27/2025 CBC (INCL UDES DIFF/ PLT) platelet count 294 thous and/u L 140-40 0 normal Not Available [facility] [address], [address], 02/27/2025 22:28:51 02/27/20 25 02/27/2025 CBC (INCL UDES DIFF/ PLT) MPV 11.6 fL 7.5-12 .5 normal Not Available [facility] [address], [address], 02/27/2025 22:28:51 02/27/20 25 02/27/2025 CBC (INCL UDES DIFF/ PLT) absolute neutrophils 6408 cells /uL 1500-7 800 normal Not Available [facility] [address] [address] [address], [place], [address], 02/27/2025 22:28:51 02/27/20 25 02/27/2025 CBC (INCL UDES DIFF/ PLT) absolute lymphocytes 1833 cells /uL 850-39 00 normal Not Available [address], [address], 02/27/2025 22:28:51 02/27/20 25 02/27/2025 CBC (INCL UDES DIFF/ PLT) absolute monocytes 481 cells /uL 200-95 0 normal Not Available [address], [address], 02/27/2025 22:28:51 02/27/20 25 02/27/2025 CBC (INCL UDES DIFF/ PLT) absolute eosinophils 151 cells /uL 15-500 normal Not Available [address], [address], 02/27/2025 22:28:51 02/27/20 25 02/27/2025 CBC (INCL UDES DIFF/ PLT) absolute basophils 27 cells /uL 0-200 normal Not Available [address], [address], 02/27/2025 22:28:51 02/27/20 25 02/27/2025 CBC (INCL UDES DIFF/ PLT) neutrophils 72 % normal Not Available [address], [address], 02/27/2025 22:28:51 02/27/20 25 02/27/2025 CBC (INCL UDES DIFF/ PLT) lymphocytes 20.6 % normal Not Available [address], [address], 02/27/2025 22:28:51 02/27/20 25 02/27/2025 CBC (INCL UDES DIFF/ PLT) monocytes 5.4 % normal Not Available [facility] [address] [address] [place], [address], 02/27/2025 22:28:51 02/27/20 25 02/27/2025 CBC (INCL UDES DIFF/ PLT) eosinophils 1.7 % normal Not Available [facility] [address], [address], 02/27/2025 22:28:51 02/27/20 25 02/27/2025 CBC (INCL UDES DIFF/ PLT) basophils 0.3 % normal Not Available [facility] - [address], [address], 02/27/2025 22:28:51 02/27/2002/27/2025 HEPAT ITIS B SURFA CE ANTIG EN W/REF L CONFI RM hepatitis B surface antigen NON-RE ACTIVE non-re active normal For addit ional infor sabrina roth e refer to http: //[facility] n.que stdia gnost ics.c om/fa q/FAQ 202 (This link is being provi ded for infor amy nal/ educa jhonathan l purpo ses only. ) Not Available [facility] [address] [address] [place], [address], 02/27/2025 22:28:52 02/27/2002/27/2025 HEPAT ITIS C AB [...] a test for HCV RNA (test code 75589 ) is sugge sted. For addit ional infor matio n pleas e refer to http: //[facility] n.que stdia gnost ics.c om/fa q/FAQ 22v1 (This link is being provi ded for infor matio nal/ educa jhonathan l purpo ses only. ) Not Available [facility] [address] [address] [place], [address], 02/27/2025 22:28:53 02/27/20 25 02/27/2025 RUBEL LA [...] la virus . Not Available [facility] [address] [address] [address], [place], [address], 02/27/2025 22:28:53 02/27/20 25 02/27/2025 HIV 1/2 [...] refer to http: //[facility] catio n.que stdia gnost ics.c om/fa q/FAQ 106 (This link is being provi ded for infor amy nal/ educa jhonathan l purpo ses only. ) The perfo rmanc e of this assay has not been clini solomon valid ated in patie nts less than 2 years old. Not Available [facility] [address] [place], [address], 02/27/2025 22:28:54 02/27/20 25 02/27/2025 RPR (DX) W/REF L TITER AND T. PALLI DUM AB, IA RPR (DX) w/refl titer and confirmatory testing NON-RE ACTIVE non-re active normal No labor atory evide nce of syphi lis. If recen t expos ure is suspe cted, submi t a new sampl e in 2-4 weeks . Not Available [facility] [address] [place], [address], 02/27/2025 22:28:55 02/27/20 25 02/27/2025 ANTIB MAICOL [...] alloi mmuni zed pregn benjamin. Not Available [facility] [address] [address] [place], [address], 02/27/2025 22:28:56 02/27/20 25 02/27/2025 ABO GROUP AND RH TYPE ABO group O Not Available [facility] [address] [address] [place], [address], 02/27/2025 22:28:57 02/27/20 25 02/27/2025 ABO GROUP AND RH TYPE Rh type RH(D) POSITI VE For addit ional infor matio n, pleas e refer to http: //divina Ruelasia gnost ics.c om/fa q/FAQ 111 (This link is being provi ded for infor amy trujillo/ inna monique purpo ses only. ) Not Available [facility] [address] [address], [place], [address], 02/27/2025 22:28:57 02/27/20 25 02/27/2025 DRUG MONIT OR, PANEL 1, SCREE N, URINE amphetamines NEGATI VE NG/mL <500 See Note A See Note A Not Available [facility] [address] [address], [place], [address], 02/27/2025 22:28:58 02/27/20 25 02/27/2025 DRUG MONIT OR, PANEL 1, SCREE N, URINE barbiturates NEGATI VE NG/mL <300 See Note A See Note A Not Available [facility] [address] [address] [address], [place], [address], 02/27/2025 22:28:58 02/27/20 25 02/27/2025 DRUG MONIT OR, PANEL 1, SCREE N, URINE benzodiazepi duane NEGATI VE NG/mL <100 See Note A See Note A Not Available [facility] [address] [address] [address], [place], [address], 02/27/2025 22:28:58 02/27/20 25 02/27/2025 DRUG MONIT OR, PANEL 1, SCREE N, URINE cocaine metabolite NEGATI VE NG/mL <150 See Note A See Note A Not Available [facility] [address] [address] [address], [place], [address], 02/27/2025 22:28:58 02/27/20 25 02/27/2025 DRUG MONIT OR, PANEL 1, SCREE N, URINE marijuana metabolite NEGATI VE NG/mL <20 See Note A See Note A Not Available [facility] [address] [address] [address], [place], [address], 02/27/2025 22:28:58 02/27/20 25 02/27/2025 DRUG MONIT OR, PANEL 1, SCREE N, URINE methadone metabolite NEGATI VE NG/mL <100 See Note A See Note A Not Available [address] [address] [address], [place], [address], 02/27/2025 22:28:58 02/27/20 25 02/27/2025 DRUG MONIT OR, PANEL 1, SCREE N, URINE opiates NEGATI VE NG/mL <100 See Note A See Note A Not Available [address] [address] [address], [place], [address], 02/27/2025 22:28:58 02/27/20 25 02/27/2025 DRUG MONIT OR, PANEL 1, SCREE N, URINE oxycodone NEGATI VE NG/mL <100 See Note A See Note A Not Available [address] [address] [address], [place], [address], 02/27/2025 22:28:58 02/27/20 25 02/27/2025 DRUG MONIT OR, PANEL 1, SCREE N, URINE phencyclidin e NEGATI VE NG/mL <25 See Note A See Note A Not Available [address] [address] [address], [place], [address], 02/27/2025 22:28:58 02/27/20 25 02/27/2025 DRUG MONIT OR, PANEL 1, SCREE N, URINE creatinine 108.1 mg/dL > or = 20.0 Not Available [facility] [address] [address] [address], [place], [address], 02/27/2025 22:28:58 02/27/20 25 02/27/2025 DRUG MONIT OR, PANEL 1, SCREE N, URINE pH 7.7 4.5-9. 0 Not Available [address] [address] [address], [place], [address], 02/27/2025 22:28:58 02/27/20 25 02/27/2025 DRUG MONIT OR, PANEL 1, SCREE N, URINE oxidant NEGATI VE mcg/m L <200 Not Available [address] [address] [place], [address], 02/27/2025 22:28:58 02/27/20 25 02/27/2025 DRUG MONIT [...] by a defin itive metho d. [facility] needi ng Inter preta tion yanci tance , pleas e conta ct us at 1.877 .40.R XTOX (1.87 7.407 .9869 ) M-F, 8am to 10pm EST Not Available [address] [address] [place], [address], 02/27/2025 22:28:59 02/27/20 25 02/27/2025 CULTU RE, URINE , ROUTI NE culture, urine, routine SEE NOTE CULTU RE, URINE , ROUTI NE Micro Numbe r: [id number] Test Statu s: Final Speci men Sourc e: Urine Speci men Quali ty: Adequ ate Resul t: No Growt h Not Available [facility] [address] [address] [place], [address], 02/27/2025 22:28:59 02/27/20 25 03/08/2025 THINP REP TIS PAP (REFL ) HPV MRNA E6/E7 clinical information: normal Pregn ant Not Available [facility] [address] [address] [place], [address], 03/08/2025 08:16:51 02/27/20 25 03/08/2025 THINP REP TIS PAP (REFL ) HPV MRNA E6/E7 LMP: normal NONE GIVEN Not Available [address], [address], 03/08/2025 08:16:51 02/27/20 25 03/08/2025 THINP REP TIS PAP (REFL ) HPV MRNA E6/E7 prev. Pap: normal NONE GIVEN Not Available [address], [address], 03/08/2025 08:16:51 02/27/2003/08/2025 THINP REP TIS PAP (REFL ) HPV MRNA E6/E7 prev. BX: normal NONE GIVEN Not Available [address], [address], 03/08/2025 08:16:51 02/27/2003/08/2025 THINP REP TIS PAP (REFL ) HPV MRNA E6/E7 source: normal Cervi x, Endoc ervix Not Available [address], [address], 03/08/2025 08:16:51 02/27/2003/08/2025 THINP REP TIS PAP (REFL ) HPV MRNA E6/E7 statement of adequacy: normal Satis facto ry for evalu ation . Endoc ervic al/tr ansfo rmati on zone compo nent prese nt. Not Available [address], [address], 03/08/2025 08:16:51 02/27/2003/08/2025 THINP REP TIS PAP (REFL ) HPV MRNA E6/E7 general categorizati on: abnormal Cytol ogy Resul ts: Epith elial Cell Abnor malit y Not Available [address], [address], 03/08/2025 08:16:51 02/27/20 25 03/08/2025 THINP REP TIS PAP (REFL ) HPV MRNA E6/E7 interpretati on/result: abnormal Low Grade Squam ous Intra epith elial Lesio n (LSIL ) Not Available [address] [address] [place], [address], 03/08/2025 08:16:51 02/27/20 25 03/08/2025 THINP REP TIS PAP (REFL ) HPV MRNA E6/E7 comment: normal This Pap test has been evalu ated with compu ter yanci barrera techn ology . Sugge st clini rajiv corre latio n and follo w-up as clini solomon appro priat e Not Available [address] [address] [place], [address], 03/08/2025 08:16:51 02/27/20 25 03/08/2025 THINP REP TIS PAP (REFL ) HPV MRNA E6/E7 cytotechnolo gist: normal KMS, CT( CP) CT Scree pat locat ion: [address] [address] [place] [address] Not Available [address] [address] [place], [address], 03/08/2025 08:16:51 02/27/20 25 03/08/2025 THINP REP TIS PAP (REFL ) HPV MRNA E6/E7 pathologist: normal Alisha monique M.D., Board Certi fied in [place] Patho logy and Cytop athol ogy. Phone : [phone] (elec troni c signa ture) Patho logis t Relea se Date/ Time: 03/06 09:25 AM Not Available [address] [address] [place], [address], 03/08/2025 08:16:51 02/27/20 25 03/08/2025 THINP REP [...] and curre nt clini rajiv infor amy arphael. Not Available [facility] [address] [address] [place], [address], 03/08/2025 08:16:51 02/27/20 25 03/08/2025 HPV MRNA [...] monique purpo ses only. ) Not Available [facility] [address] [place], [address], 03/08/2025 08:16:53 02/27/20 25 02/26/2025 CT + NG + TV, DNA, urine /swab Chlamydia negati ve Not Available [facility] ([facility]) [address] [place], [address], 02/25/2025 18:55:26 02/27/20 25 02/26/2025 CT + NG + TV, DNA, urine /swab Gonorrhea negati ve Not Available [facility] ([facility]) [address] [place], [address], 02/25/2025 18:55:26 02/27/2002/26/2025 CT + NG + TV, DNA, urine /swab Trichomonas negati ve Not Available [facility] ([facility]) [address] [place], [address], 02/25/2025 18:55:26 07/02/2007/02/2025 CBC WBC 11.1 x10 4.0-10 .5 high Not Available [facility] [address] [facility] [address], [place], [address], 07/02/2025 10:24:57 07/02/20 25 07/02/2025 CBC RBC 3.96 x10 3.50-5 .50 Not Available [facility] [address] [facility], [place], [address], 07/02/2025 10:24:57 07/02/20 25 07/02/2025 CBC HGB 12.0 g/dL 12.0-1 6.0 Not Available [facility] [address] [facility] [address], [place], [address], 07/02/2025 10:24:57 07/02/20 25 07/02/2025 CBC HCT 37.1 % 37.0-4 7.0 Not Available [facility] [address] [facility] [address], [place], [address], 07/02/2025 10:24:57 07/02/20 25 07/02/2025 CBC MCV 93.8 fL 80.0-9 9.9 Not Available [facility] [address] [facility], [place], [address], 07/02/2025 10:24:57 07/02/2007/02/2025 CBC MCH 30.4 pg 27.0-3 2.0 Not Available [facility] [address] [facility], [place], [address], 07/02/2025 10:24:57 07/02/20 25 07/02/2025 CBC MCHC 32.4 g/dL 32.0-3 6.0 Not Available [facility] [address] [facility], [place], [address], 07/02/2025 10:24:57 07/02/2007/02/2025 CBC RDW 12.9 % 11.5-1 4.5 Not Available [facility] [address] [facility], [place], [address], 07/02/2025 10:24:57 07/02/20 25 07/02/2025 CBC plt 227.7 x10 140.0- 451.0 Not Available [facility] [address] [facility], [place], [address], 07/02/2025 10:24:57 07/02/2007/02/2025 CBC lymphocytes % 15.5 % 20.0-5 0.0 low Not Available [facility] [address] [facility], [place], [address], 07/02/2025 10:24:57 07/02/2007/02/2025 CBC granulcytes % 78.3 % 30.0-7 0.0 high Not Available [facility] [address] [facility], [place], [address], 07/02/2025 10:24:57 07/02/2007/02/2025 CBC monocytes % 4.2 % 2.0-16 .0 Not Available [facility] [address] [facility] [address], [place], [address], 07/02/2025 10:24:57 07/02/20 25 07/02/2025 CBC granulcytes# 8.7 x10 Not Jenny ilable [facility] [address] [address], [place], [address], 07/02/2025 10:24:57 07/02/20 25 07/02/2025 CBC lymphocytes # 1.7 x10 Not Available [address] [address], [place], [address], 07/02/2025 10:24:57 07/02/20 25 07/02/2025 CBC monocytes # 0.5 x10 Not Avai lable [facility] [address] [address], [place], [address], 07/02/2025 10:24:57 07/02/20 25 07/02/2025 GLUCO SE SCREE N glucose screen 135.0 mg/dL Not Available [facility] [address] [address], [place], [address], 07/02/2025 10:30:30 07/11/20 25 07/11/2025 GLUCO SE SCREE N glucose screen 133.0 mg/dL Not Available [facility] [address] [address], [place], [address], 07/11/2025 10:37:03 02/19/20 25 02/12/2025 US, chadwick martinez, 1st trime ster No observ ation record ed. [email or web address] Not Available 02/19 09:09:34 04/25/20 25 04/18/2025 US, chadwick martinez, follo w-up No observ ation record ed. [email or web address] [facility] [address] [place], [address], 04/29/2025 09:24:34 05/11/20 25 05/07/2025 US, obste tric, 2nd trime ster No observ ation record ed. [facility] [address] [place], [address], 05/13/2025 17:57:21 07/05/20 25 07/02/2025 imagi ng/di agnos tic resul t No observ ation record ed. [facility] [address] [place], [address], 07/09/2025 10:35:54 Result Notes None recorded. Problems Name Problem SNOMED Code Status Onset Date Resolution Date Notes Provider Name and Address Organization Details Recorded Time Rheumatoid arthritis 71060620 Active 2022 KERWIN roper [facility]CR[facility]io 14:16:25 Pain of knee region 9449174514 Completed 202301/24/2025 KERWIN roper [facility] 14:16:23 Family history of diabetes mellitus 388527651 Active 2023 KERWIN roper [facility]CR[facility] 14:16:18 Normal 23588601 Active 2024 ROXI PLUMMER null [facility] 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 Procedures Surgical History Date Name Laterality Status Provider Name and Address Organization Details Recorded Time 02/27/20 25 Date of Last Pap Smear completed [facility] L[facility]LRem[facility]CR[facility]igio 09/02/2025 18:39:21 02/27/20 25 liquid based cervical cytology screening completed [facility], LRemigioLRemigioC. 09/02/2025 18:39:54 01/31/20 24 colposcopy completed [facility], LRemigioLRemigioCRemigio 01/24/2025 14:17:49 01/31/20 24 hysteroscopy completed [facility] 01/24/2025 14:18:46 arthroscopy of left knee joint completed [facility], L.LRemigioC. 01/24/2025 14:17:01 cholecystectomy completed [facility] L.L[facility]CR[facility]io 01/24/2025 14:17:33 Imaging Results None recorded. Procedure Notes None recorded. Medical Equipment None Reported. Allergies Allergen ID Allergen Name Allergen Category Reaction Reaction Severity Criticality Documentation Date Start Date Code Code System Note Provider Name and Address Organization Details Recorded Time 33919 Bactrim medicatio n hives moderate Not available 05/21/2023 31326 9 RxNorm ROXI SHEARER [facility], LRemigioLRemigioCRemigio 15:30:03 03736 Product containin g penicilli n (product) medicatio n hives moderate Not available 05/21/2023 84254 8001 SNOMED [facility] 5 15:30:03 25520 Augmentin medicatio n hives moderate Not available 01/24/2025 60666 2 RxNorm KERWIN DUNAWAY [facility] 5 14:19:18 55682 Celebrex medicatio n other moderate Not available 01/24/2025 47891 7 RxNorm TREBA NEUSCHWAN KAVITHA [facility] 5 15:30:03 54047 Substance with sulfonami de structure and antibacte rial mechanism of action (substanc e) medicatio n hives moderate Not available 04/18/2025 66089 8003 SNOMED TREBA NEUSCHWAN KAVITHA [facility] 5 15:30:03 08311 amoxicill in / clavulana te medicatio n hives Not available high 09/06/20252022 91799 RxNorm Yessy ates PCN and amoxi cilli n fine Not Available anna - External Data Service - prod 5 07:58:34 34770 celecoxib medicatio n Not available Not available high 09/06/20252022 06566 7 RxNorm Not Available anna - External Data Service - prod 5 07:58:34 13718 amoxicill in medicatio n Not available Not available low 09/27/20252023 723 RxNorm Not Available anna - External Data Service - prod 5 13:40:54 36837 clavulani c acid Not available Not available Not available low 09/27/20252023 58829 RxNorm Not Available an[place] - External Data Service - prod 5 13:40:54 38391 sulfameth oxazole medicatio n Not available Not available Not available 09/27/20252023 87456 RxNorm Not Available anna - External Data Service - prod 5 13:40:54 28657 trimethop rim medicatio n Not available Not available Not available 09/27/20252023 26139 RxNorm Not Available [place] - External Data Service - prod 13:40:54 [...] Last Updated DateTime 170.18 cm 36.7 kg/m2 815922. 71 g 18 /min 99 % 94 /min 98.2 [degF] 124/66 mm[Hg] KERWIN GUME [facility] 11:07:48 Social History Question Answer Notes LastModified by [employer] ion Details LastModified Time Tobacco Smoking Status Former Sm[facility] 01/24/2023 10:09:31 Are You Blind Or Do You Have Difficulty Seeing? No Information not available 01/24/2025 Are You Deaf Or Do You Have Serious Difficulty Hearing? No [email or web address] Information not available 01/24/2023 When Did You Quit Smoking? 1-5yearssinc elastcigaret te [email or web address] Information not available 01/24/2023 Do You Work In Healthcare? No Information not available 01/24/2025 What Was The Date Of Your Most Recent Tobacco Screening? 03/26/2025 [email or web address] Information not available 03/26/2025 What Is Your Relationship Status? Information not available 01/24/2025 Have You Recently Traveled Abroad? No [email or web address] Information not available 01/24/2023 Do You Have Difficulty Walking Or Climbing Stairs? No [email or web address] Information not available 01/24/2023 Sex: Unknown Functional [...] independently without assistance or assistive devices? YESWOREST [email or web address] Information not available 01/24/2023 Do you have difficulty doing errands alone? No Information not available 01/24/2023 Are you able to care for yourself independently? 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 No [email or web address] Information not available 01/24/2023 Do you or have you ever used e-cigarettes or vape? Former user of electronic cigarettes Information not available 01/24/2025 Mental Status Question Answer Note LastModified by Organization D etails LastModified Time Do you have difficulty concentrating, remembering or making decisions? No [email or web address] Information no t available 01/24/2023 Family History Relationship Description Onset Age of this Age Resolved Age Notes LastModified by Organization Details LastModified Time Father Diabetes mellitus [email or web address] Not available 2023 09:43:45 Paternal Grandmother Malignant [...] Recorded Time IPV 09/28/2000 completed Susan roper [facility] 10/09/2024 09:35:10 MMR 04/11/1996 completed [facility] 10/09/2024 09:35:10 MMR 09/28/2000 completed [facility] 10/09/2024 09:35:10 Tdap 11/17/2010 completed [facility] 10/09/2024 09:35:10 Tdap 02/20/2015 completed [facility]ae [facility] 10/09/2024 09:35:10 Hep B, unspecified formulation 1995 completed [facility] 10/09/2024 09:35:10 Hep B, unspecified formulation 02/28/1996 [facility] 10/09/2024 09:35:10 Hep B, unspecified formulation 1995 completed Susan roper [facility] 10/09/2024 09:35:10 OPV, trivalent 1995 completed Susan roper [facility] 10/09/2024 09:35:10 OPV, trivalent 02/28/1996 completed Susan roper [facility] 10/09/2024 09:35:10 OPV, trivalent 1995 completed Susan Wilson null, [facility] 10/09/2024 09:35:10 DTP-Hib 11/29/1996 completed Susan Wilson null, [facility] 10/09/2024 09:35:10 DTP-Hib 1995 completed Susan Wilson null, [facility] 10/09/2024 09:35:10 DTP-Hib 02/28/1996 completed Susan Wilson null, [facility] 10/09/2024 09:35:10 DTP-Hib 1995 completed Susan Wilson null, [facility] 10/09/2024 09:35:10 DTaP 09/28/2000 completed Susan Wilson null, [facility] 10/09/2024 09:35:10 Past Encounters Encounter ID Performer Location Encounter Start Date Encounter Closed Date Diagnosis/Indication Diagnosis SNOMED-CT Code Diagnosis ICD10 Code Diagnosis IMO Codes Diagnosis Note [id number] Alvaro Angelo MD [facility] [place] ([facility]) [address] [place] [phone] 5 06/18/2025 11:21:56 06/18/2025 12:15:35 Normal 36101212 Z34.81 Gestation period, 26 weeks 81498308 Z3A.26 [id number] Alvaro Angelo MD [facility] [place] ([facility]) [address] [place] [address]-043 5 07/02/2025 08:58:15 07/03/2025 12:00:14 [id number] Alvaro Angleo MD [facility]) [address] [place] [phone] 5 07/02/2025 08:58:47 07/04/2025 04:05:41 [id number] Alvaro Angelo MD [facility] [place] ([facility]) [address] [place] [address] 07/02/2025 10:39:30 07/02/2025 11:45:25 Normal 20115528 Z34.83 [id number] Gestation period, 28 weeks 75748410 Z3A.28 [id number] Health Concerns Section Related Observation LastModified by Organization Detai ls LastModified Time None Recorded Concern Status LastModified by Organization Details LastModified Time None Recorded Payers Encounter Date Sequence Insurance Name Policy Number Policy Fierro Covered Member ID Fierro Member ID Guarantor Name 07/02/2025 1 [place] [id number] Jeffy Zimmerman [id number] Jeffy Zimmerman Notes Date Note Type [...] noted in the HPI Alvaro Angelo MD [address] [place] [address], [phone], [facility], LFelisha 07/02/2025 11:42:06 OBGyn Episode Ob Episode Information Episode Created Date Number of Fetuses Patient Bloodtype Patient rh Status Prepregnancy Weight lbs Domestic Partner Domestic Partner Phone Father Name Top Lift 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 Status 01/25/20 25 1 O Positive Damián [...] Resolution Snomed Code Not e Normal 02/25/2025 [id number] Merrill Calculation Initial Merrill Date Initial Exam [...] Weight in lbs Pre/Post Dialysis Refused Weight 227.931851057246 BP Diastolic BP Location Tested BP Systolic [...] Weight in lbs Pre/Post Dialysis Refused Weight 221.233126427671 BP Diastolic BP Location Tested BP Systolic [...] Weight in lbs Pre/Post Dialysis Refused Weight 221.181233867096 BP Diastolic BP Location Tested BP Systolic [...] Weight in lbs Pre/Post Dialysis Refused Weight 225.142592450310 BP Diastolic BP Location Tested BP Systolic [...] Weight in lbs Pre/Post Dialysis Refused Weight 230.643776109810 BP Diastolic BP Location Tested BP Systolic BP Type 62 L arm 106 Fetus Heart Rate Present A 148 Present Fetus Movement A Yes Comments heartburn Flowsheet Date 06/18/2025 Sierra Score Blood Edema Fundus Height Fundus Units Glucose Ketones Leukocytes Nitrite Labor Signs Protein Cervic Dilation Cervic Effacement Cervic Station Type Weight in lbs Pre/Post Dialysis Refused Weight 229.5203416752 BP Diastolic BP Location Tested BP Systolic [...] Weight in lbs Pre/Post Dialysis Refused Weight 234.789357963139 BP Diastolic BP Location Tested BP Systolic [...] Weight in lbs Pre/Post Dialysis Refused Weight 232.633948212291 BP Diastolic BP Location Tested BP Systolic [...] Weight in lbs Pre/Post Dialysis Refused Weight 236.682804253304 BP Diastolic BP Location Tested BP Systolic BP Type 76 120 Fetus Heart Rate Present A 144 Present Fetus Movement A Yes Comments mild swelling, heartburn int ermittent Flowsheet Date 08/13/2025 Sierra Score Blood Edema Fundus Height Fundus Units Glucose Ketones Leukocytes Nitrite Labor Signs Protein Cervic Dilation Cervic Effacement Cervic Station 34 cm none trace Cambria Garnett neg Type Weight in lbs Pre/Post Dialysis Refused Weight 239.259138113714 BP Diastolic BP Location Tested BP Systolic [...] Weight in lbs Pre/Post Dialysis Refused Weight 241.541804316233 BP Diastolic BP Location Tested BP Systolic [...] Weight in lbs Pre/Post Dialysis Refused Weight 241.560102037719 BP Diastolic BP Location Tested BP Systolic [...] Weight in lbs Pre/Post Dialysis Refused Weight 243.334502084142 BP Diastolic BP Location Tested BP Systolic BP Type 70 120 Fetus Heart Rate Present Fetus Movement Comments Flowsheet Date 09/10/2025 Sierra Score Blood Edema Fundus Height Fundus Units Glucose Ketones Leukocytes Nitrite Labor Signs Protein Cervic Dilation Cervic Effacement Cervic Station none trace Negative Michael Garnett neg 2cm 70% -3 Type Weight in lbs Pre/Post Dialysis Refused Weight 243.769007425932 BP Diastolic BP Location Tested BP Systolic [...] Weight in lbs Pre/Post Dialysis Refused Weight 242.929870634718 BP Diastolic BP Location Tested BP Systolic BP Type 70 122 Fetus Heart Rate Present A 164 Present Fetus Movement A Yes Comments low back pain, vaginal press ure, swelling in hands/feet Flowsheet Date 09/24/2025 Sierra Score Blood Edema Fundus Height Fundus Units Glucose Ketones Leukocytes Nitrite Labor Signs Protein Cervic Dilation Cervic Effacement Cervic Station none 1+ Negative Cambria Garnett trace 3cm 70% -4 Type Weight in lbs Pre/Post Dialysis Refused Weight 244.774590580570 BP Diastolic BP Location Tested BP Systolic [...] Weight in lbs Pre/Post Dialysis Refused Weight 248.967634551175 BP Diastolic BP Location Tested BP Systolic [...] Estim ated Date of Delivery false Thalassemia (Telugu, Montenegrin, Mediterranean, Or Background): MCV < 80 false Neural Tube Defect (Meningomyelocele, Spina Bifi da, Or Anencephaly) false Congenital Heart Defect false Down Syndrome false Maco-Sachs (eg, Bahai, Cajun, Nigerian-Ukrainian) f alse Dustin Disease false Sickle Cell Disease Or Trait () false Hemophilia Or Other Blood Disorders false Muscular Dystrophy false Cystic Fibrosis false Preble's Chorea false Intellectual Disability/Autism false If Yes, [...]
--- OUTSIDE RECORDS SUMMARY | 2025-09-30 23:40 | XMS_ITS | Continuity of Care Document ---
Author Organization [place] - Fabio Myers [facility] [place], [place] ([facility]) Address [address] [place] [address] Assessment Encounter Date Assessment Date Assessment LastModified by Organization Details LastModified Time 09/25/2025 09/25/2025 The patient's membranes are grossly ruptured. She is instructed to proceed to the hospital for evaluation and possible augmentation of labor. [email or web address] Not available 09/28/2025 05:35:17 Plan of Treatment Reminders Order Date Submit [...] ETE color YELLOW yellow normal Not Available [facility] [address] [place], [address], 02/27/2025 22:28:50 02/27/2002/27/2025 URINA LYSIS , COMPL ETE appearance CLEAR clear normal Not Available [address] [facility] [address] [place], [address], 02/27/2025 22:28:50 02/27/2002/2702/27/2025 URINA LYSIS , COMPL ETE specific gravity 1.012 1.001- 1.035 normal Not Available [address], [address], 02/27/2025 22:28:50 02/27/20 25 02/27/2025 URINA LYSIS , COMPL ETE pH 7.5 5.0-8. 0 normal Not Available [address], [address], 02/27/2025 22:28:50 02/27/20 25 02/27/2025 URINA LYSIS , COMPL ETE glucose NEGATI VE negati ve normal Not Available [address], [address], 02/27/2025 22:28:50 02/27/20 25 02/27/2025 URINA LYSIS , COMPL ETE bilirubin NEGATI VE negati ve normal Not Available [address], [address], 02/27/2025 22:28:50 02/27/20 25 02/27/2025 URINA LYSIS , COMPL ETE ketones NEGATI VE negati ve normal Not Available [address], [address], 02/27/2025 22:28:50 02/27/20 25 02/27/2025 URINA LYSIS , COMPL ETE occult blood NEGATI VE negati ve normal Not Available [facility] [address], [address], 02/27/2025 22:28:50 02/27/20 25 02/27/2025 URINA LYSIS , COMPL ETE protein NEGATI VE negati ve normal Not Available [address], [address], 02/27/2025 22:28:50 02/27/20 25 02/27/2025 URINA LYSIS , COMPL ETE nitrite NEGATI VE negati ve normal Not Available [address], [address], 02/27/2025 22:28:50 02/27/20 25 02/27/2025 URINA LYSIS , COMPL ETE leukocyte esterase TRACE negati ve abnormal Not Available [address], [address], 02/27/2025 22:28:50 02/27/20 25 02/27/2025 URINA LYSIS , COMPL ETE WBC NONE SEEN /hpf < or = 5 normal Not Available [address], [address], 02/27/2025 22:28:50 02/27/20 25 02/27/2025 URINA LYSIS , COMPL ETE RBC NONE SEEN /hpf < or = 2 normal Not Available [address], [address], 02/27/2025 22:28:50 02/27/20 25 02/27/2025 URINA LYSIS , COMPL ETE squamous epithelial cells 6-10 /hpf < or = 5 abnormal Not Available [address], [address], 02/27/2025 22:28:50 02/27/20 25 02/27/2025 URINA LYSIS , COMPL ETE bacteria NONE SEEN /hpf none seen normal Not Available [address], [address], 02/27/2025 22:28:50 02/27/20 25 02/27/2025 URINA LYSIS , COMPL ETE hyaline cast NONE SEEN /lpf none seen normal Not Available [address], [address], 02/27/2025 22:28:50 02/27/20 25 02/27/2025 URINA LYSIS , COMPL ETE note This urine was jim zed for the prese nce of WBC, RBC, bacte terry, casts , and other forme d eleme nts. Only those eleme nts seen were repor bruce. Not Available [address], [address], 02/27/2025 22:28:50 02/27/20 25 02/27/2025 CBC (INCL UDES DIFF/ PLT) white blood cell count 8.9 thous and/u L 3.8-10 .8 normal Not Available [facility] [address], [address], 02/27/2025 22:28:51 02/27/20 25 02/27/2025 CBC (INCL UDES DIFF/ PLT) red blood cell count 4.42 erick on/uL 3.80-5 .10 normal Not Available [facility] [address], [address], 02/27/2025 22:28:51 02/27/20 25 02/27/2025 CBC (INCL UDES DIFF/ PLT) hemoglobin 13.2 g/dL 11.7-1 5.5 normal Not Available [facility] [address], [address], 02/27/2025 22:28:51 02/27/2002/27/2025 CBC (INCL UDES DIFF/ PLT) hematocrit 41.4 % 35.0-4 5.0 normal Not Available [facility] [address], [address], 02/27/2025 22:28:51 02/27/20 25 02/27/2025 CBC (INCL UDES DIFF/ PLT) MCV 93.7 fL 80.0-1 00.0 normal Not Available [facility] [address], [address], 02/27/2025 22:28:51 02/27/20 25 02/27/2025 CBC (INCL UDES DIFF/ PLT) MCH 29.9 pg 27.0-3 3.0 normal Not Available [address], [address], 02/27/2025 22:28:51 02/27/20 25 02/27/2025 CBC (INCL UDES DIFF/ PLT) MCHC 31.9 g/dL 32.0-3 6.0 low For adult s, a sligh t decre ase in the calcu lated MCHC value (in the range of 30 to 32 g/dL) is most likel y not clini solomon signi fican t; eliana er, it shoul d be inter prete d with cauti on in [facility] with other red cell mariana eters and the patie nt's clini rajiv condi tion. Not Available [address], [address], 02/27/2025 22:28:51 02/27/20 25 02/27/2025 CBC (INCL UDES DIFF/ PLT) RDW 12.5 % 11.0-1 5.0 normal Not Available [address], [address], 02/27/2025 22:28:51 02/27/20 25 02/27/2025 CBC (INCL UDES DIFF/ PLT) platelet count 294 thous and/u L 140-40 0 normal Not Available [address], [address], 02/27/2025 22:28:51 02/27/20 25 02/27/2025 CBC (INCL UDES DIFF/ PLT) MPV 11.6 fL 7.5-12 .5 normal Not Available [address], [address], 02/27/2025 22:28:51 02/27/20 25 02/27/2025 CBC (INCL UDES DIFF/ PLT) absolute neutrophils 6408 cells /uL 1500-7 800 normal Not Available [facility] [address] [address], [place], [address], 02/27/2025 22:28:51 02/27/20 25 02/27/2025 CBC (INCL UDES DIFF/ PLT) absolute lymphocytes 1833 cells /uL 850-39 00 normal Not Available [address], [address], 02/27/2025 22:28:51 02/27/20 25 02/27/2025 CBC (INCL UDES DIFF/ PLT) absolute monocytes 481 cells /uL 200-95 0 normal Not Available [address], [address], 02/27/2025 22:28:51 02/27/20 25 02/27/2025 CBC (INCL UDES DIFF/ PLT) absolute eosinophils 151 cells /uL 15-500 normal Not Available [address], [address], 02/27/2025 22:28:51 02/27/20 25 02/27/2025 CBC (INCL UDES DIFF/ PLT) absolute basophils 27 cells /uL 0-200 normal Not Available [address], [address], 02/27/2025 22:28:51 02/27/20 25 02/27/2025 CBC (INCL UDES DIFF/ PLT) neutrophils 72 % normal Not Available [address], [address], 02/27/2025 22:28:51 02/27/20 25 02/27/2025 CBC (INCL UDES DIFF/ PLT) lymphocytes 20.6 % normal Not Available [address], [address], 02/27/2025 22:28:51 02/27/20 25 02/27/2025 CBC (INCL UDES DIFF/ PLT) monocytes 5.4 % normal Not Available [facility] [address] [address] [place], [address], 02/27/2025 22:28:51 02/27/20 25 02/27/2025 CBC (INCL UDES DIFF/ PLT) eosinophils 1.7 % normal Not Available [facility] [address] [address] [place], [address], 02/27/2025 22:28:51 02/27/20 25 02/27/2025 CBC (INCL UDES DIFF/ PLT) basophils 0.3 % normal Not Available [facility] - [address] [place], [address], 02/27/2025 22:28:51 02/27/2002/27/2025 HEPAT ITIS B SURFA CE ANTIG EN W/REF L CONFI RM hepatitis B surface antigen NON-RE ACTIVE non-re active normal For addit ional infor amy raphael, sabrina e refer to http: //[facility] cat n.que stdia gnost ics.c om/fa q/FAQ 202 (This link is being provi ded for infor mattodd nal/ educa jhonathan l purpo ses only. ) Not Available [facility] [address], [address], 02/27/2025 22:28:52 02/27/2002/27/2025 HEPAT ITIS C AB [...] a test for HCV RNA (test code 19806 ) is sugge sted. For addit ional infor matio n pleas e refer to http: //[facility] cat n.que stdia gnost ics.c om/fa q/FAQ 22v1 (This link is being provi ded for infor matio nal/ educa jhonathan l purpo ses only. ) Not Available [facility] [address] [place], [address], 02/27/2025 22:28:53 02/27/20 25 02/27/2025 RUBEL LA [...] virus . Not Available [facility] [address] [address] [address], [place], [address], 02/27/2025 22:28:53 02/27/2002/27/2025 HIV 1/2 ANTIG EN/AN [...] matio n pleas e refer to http: //[facility] catio n.que stdia gnost ics.c om/fa q/FAQ 106 (This link is being provi ded for infor amy nal/ educa jhonathan l purpo ses only. ) The perfo rmanc e of this assay has not been clini solomon valid ated in patie nts less than 2 years old. Not Available [facility] [address] [address] [place], [address], 02/27/2025 22:28:54 02/27/20 25 02/27/2025 RPR (DX) W/REF L TITER AND T. PALLI DUM AB, IA RPR (DX) w/refl titer and confirmatory testing NON-RE ACTIVE non-re active normal No labor atory evide nce of syphi lis. If recen t expos ure is suspe cted, submi t a new sampl e in 2-4 weeks . Not Available [facility] [address] [place], [address], 02/27/2025 22:28:55 02/27/20 25 02/27/2025 ANTIB MAICOL [...] alloi mmuni zed pregn benjamin. Not Available [facility] [address] [address] [place], [address], 02/27/2025 22:28:56 02/27/20 25 02/27/2025 ABO GROUP AND RH TYPE ABO group O Not Available [facility] [address] [address] [place], [address], 02/27/2025 22:28:57 02/27/20 25 02/27/2025 ABO GROUP AND RH TYPE Rh type RH(D) POSITI VE For addit ional infor sabrina roth e refer to http: //divina Mayer gnost ics.c om/fa q/FAQ 111 (This link is being provi ded for infor amy trujillo/ inna lawson ses only. ) Not Available [facility] [address] [address] [address], [place], [address], 02/27/2025 22:28:57 02/27/20 25 02/27/2025 DRUG MONIT OR, PANEL 1, SCREE N, URINE amphetamines NEGATI VE NG/mL <500 See Note A See Note A Not Available [facility] [address] [address] [address], [place], [address], 02/27/2025 22:28:58 02/27/20 25 02/27/2025 DRUG MONIT OR, PANEL 1, SCREE N, URINE barbiturates NEGATI VE NG/mL <300 See Note A See Note A Not Available [facility] [address] [address] [address], [place], [address], 02/27/2025 22:28:58 02/27/20 25 02/27/2025 DRUG MONIT OR, PANEL 1, SCREE N, URINE benzodiazepi duane NEGATI VE NG/mL <100 See Note A See Note A Not Available [facility] [address] [address] [address], [place], [address], 02/27/2025 22:28:58 02/27/20 25 02/27/2025 DRUG MONIT OR, PANEL 1, SCREE N, URINE cocaine metabolite NEGATI VE NG/mL <150 See Note A See Note A Not Available [facility] [address] [address] [address], [place], [address], 02/27/2025 22:28:58 02/27/20 25 02/27/2025 DRUG MONIT OR, PANEL 1, SCREE N, URINE marijuana metabolite NEGATI VE NG/mL <20 See Note A See Note A Not Available [facility] [address] [address] [address], [place], [address], 02/27/2025 22:28:58 02/27/20 25 02/27/2025 DRUG MONIT OR, PANEL 1, SCREE N, URINE methadone metabolite NEGATI VE NG/mL <100 See Note A See Note A Not Available [address] [address] [address], [place], [address], 02/27/2025 22:28:58 02/27/20 25 02/27/2025 DRUG MONIT OR, PANEL 1, SCREE N, URINE opiates NEGATI VE NG/mL <100 See Note A See Note A Not Available [facility] [address] [address] [address], [place], [address], 02/27/2025 22:28:58 02/27/20 25 02/27/2025 DRUG MONIT OR, PANEL 1, SCREE N, URINE oxycodone NEGATI VE NG/mL <100 See Note A See Note A Not Available [address] [address] [address], [place], [address], 02/27/2025 22:28:58 02/27/20 25 02/27/2025 DRUG MONIT OR, PANEL 1, SCREE N, URINE phencyclidin e NEGATI VE NG/mL <25 See Note A See Note A Not Available [address] [address] [address], [place], [address], 02/27/2025 22:28:58 02/27/20 25 02/27/2025 DRUG MONIT OR, PANEL 1, SCREE N, URINE creatinine 108.1 mg/dL > or = 20.0 Not Available [address] [address] [address], [place], [address], 02/27/2025 22:28:58 02/27/20 25 02/27/2025 DRUG MONIT OR, PANEL 1, SCREE N, URINE pH 7.7 4.5-9. 0 Not Available [address] [address] [address], [place], [address], 02/27/2025 22:28:58 02/27/20 25 02/27/2025 DRUG MONIT OR, PANEL 1, SCREE N, URINE oxidant NEGATI VE mcg/m L <200 Not Available [address] [place], [address], 02/27/2025 22:28:58 02/27/20 25 02/27/2025 DRUG MONIT [...] presu mptiv e; based only on tripp morelandg metho ds, and they have not been confi rmed by a defin itive metho d. [facility] ders needi ng Inter preta tion yanci tance , pleas e conta ct us at 1.877 .40.R XTOX (1.87 [phone] ) M-F, 8am to 10pm EST Not Available [address] [address] [address], [place], [address], 02/27/2025 22:28:59 02/27/20 25 02/27/2025 CULTU RE, URINE , ROUTI NE culture, urine, routine SEE NOTE CULTU RE, URINE , ROUTI NE Micro Numbe r: [id number] Test Statu s: Final Speci men Sourc e: Urine Speci men Quali ty: Adequ ate Resul t: No Growt h Not Available [facility] [address] [address] [address], [place], [address], 02/27/2025 22:28:59 02/27/20 25 03/08/2025 THINP REP TIS PAP (REFL ) HPV MRNA E6/E7 clinical information: normal Pregn ant Not Available [facility] [address] [address] [place], [address], 03/08/2025 08:16:51 02/27/20 25 03/08/2025 THINP REP TIS PAP (REFL ) HPV MRNA E6/E7 LMP: normal NONE GIVEN Not Available [address], [address], 03/08/2025 08:16:51 02/27/20 25 03/08/2025 THINP REP TIS PAP (REFL ) HPV MRNA E6/E7 prev. Pap: normal NONE GIVEN Not Available [address], [address], 03/08/2025 08:16:51 02/27/2003/08/2025 THINP REP TIS PAP (REFL ) HPV MRNA E6/E7 prev. BX: normal NONE GIVEN Not Available [address], [address], 03/08/2025 08:16:51 02/27/2003/08/2025 THINP REP TIS PAP (REFL ) HPV MRNA E6/E7 source: normal Cervi x, Endoc ervix Not Available [address], [address], 03/08/2025 08:16:51 02/27/2003/08/2025 THINP REP TIS PAP (REFL ) HPV MRNA E6/E7 statement of adequacy: normal Satis facto ry for evalu ation . Endoc ervic al/tr ansfo rmati on zone compo nent prese nt. Not Available [address], [address], 03/08/2025 08:16:51 02/27/2003/08/2025 THINP REP TIS PAP (REFL ) HPV MRNA E6/E7 general categorizati on: abnormal Cytol ogy Resul ts: Epith elial Cell Abnor malit y Not Available [address], [address], 03/08/2025 08:16:51 02/27/20 25 03/08/2025 THINP REP TIS PAP (REFL ) HPV MRNA E6/E7 interpretati on/result: abnormal Low Grade Squam ous Intra epith elial Lesio n (LSIL ) Not Available [address] [address] [place], [address], 03/08/2025 08:16:51 02/27/20 25 03/08/2025 THINP REP TIS PAP (REFL ) HPV MRNA E6/E7 comment: normal This Pap test has been evalu ated with compu ter yanci bruce techn ology . Sugge st clini rajiv corre latio n and follo w-up as clini solomon appro priat e Not Available [address] [address] [place], [address], 03/08/2025 08:16:51 02/27/20 25 03/08/2025 THINP REP TIS PAP (REFL ) HPV MRNA E6/E7 cytotechnolo gist: normal KMS, CT( CP) CT Scree pat locat ion: [address] [address] [place] [address] Not Available [address] [address] [place], [address], 03/08/2025 08:16:51 02/27/20 25 03/08/2025 THINP REP TIS PAP (REFL ) HPV MRNA E6/E7 pathologist: normal Alisha monique M.D., Board Certi fied in Anato jesús Patho logy and Cytop athol ogy. Phone : [phone] (elec troni c signa ture) Patho logis t Relea se Date/ Time: 03/06 09:25 AM Not Available [address] [address] [place], [address], 03/08/2025 08:16:51 02/27/20 25 03/08/2025 THINP REP [...] clini rajiv infor amy raphael. Not Available [address] [address] [place], [address], 03/08/2025 08:16:51 02/27/20 25 03/08/2025 HPV MRNA [...] amy raphael plekeyon e refer to http: //[facility] hayley raphael.que stdia gnost ics.c om/fa q/FAQ 129v1 (This link if provi ded for infor amy raphael/ educcatracho monique purpo ses only. ) Not Available [facility] [address] [place], [address], 03/08/2025 08:16:53 02/27/20 25 02/26/2025 CT + NG + TV, DNA, urine /swab Chlamydia negati ve Not Available [facility] ([facility]) [address] [place], [address], 02/25/2025 18:55:26 02/27/20 25 02/26/2025 CT + NG + TV, DNA, urine /swab Gonorrhea negati ve Not Available [facility] ([facility]) [address] [place], [address], 02/25/2025 18:55:26 02/27/20 25 02/26/2025 CT + NG + TV, DNA, urine /swab Trichomonas negati ve Not Available [facility] ([facility]) [address] [place], [address], 02/25/2025 18:55:26 07/02/20 25 07/02/2025 CBC WBC 11.1 x10 4.0-10 .5 high Not Available [facility] [address] [facility] [address], [place], [address], 07/02/2025 10:24:57 07/02/20 25 07/02/2025 CBC RBC 3.96 x10 3.50-5 .50 Not Available [facility] [address] [facility] 1, [place], [address], 07/02/2025 10:24:57 07/02/20 25 07/02/2025 CBC HGB 12.0 g/dL 12.0-1 6.0 Not Available [facility] [address] [facility] 1, [place], [address], 07/02/2025 10:24:57 07/02/20 25 07/02/2025 CBC HCT 37.1 % 37.0-4 7.0 Not Available [facility] [address] [facility] 1, [place], [address], 07/02/2025 10:24:57 07/02/20 25 07/02/2025 CBC MCV 93.8 fL 80.0-9 9.9 Not Available [facility] [address] [facility] [address], [place], [address], 07/02/2025 10:24:57 07/02/20 25 07/02/2025 CBC MCH 30.4 pg 27.0-3 2.0 Not Available [facility] [address] [facility] 1, [place], [address], 07/02/2025 10:24:57 07/02/2007/02/2025 CBC MCHC 32.4 g/dL 32.0-3 6.0 Not Available [facility] [address] [facility] 1, [place], [address], 07/02/2025 10:24:57 07/02/2007/02/2025 CBC RDW 12.9 % 11.5-1 4.5 Not Available [facility] [address] [facility] [address], [place], [address], 07/02/2025 10:24:57 07/02/2007/02/2025 CBC plt 227.7 x10 140.0- 451.0 Not Available [facility] [address] [facility] [address], [place], [address], 07/02/2025 10:24:57 07/02/20 25 07/02/2025 CBC lymphocytes % 15.5 % 20.0-5 0.0 low Not Available [facility] [address] [facility] 1, [place], [address], 07/02/2025 10:24:57 07/02/20 25 07/02/2025 CBC granulcytes % 78.3 % 30.0-7 0.0 high Not Available [facility] [address] [facility] 1, [place], [address], 07/02/2025 10:24:57 07/02/20 25 07/02/2025 CBC monocytes % 4.2 % 2.0-16 .0 Not Available [facility] [address] [facility] 1, [place], [address], 07/02/2025 10:24:57 07/02/20 25 07/02/2025 CBC granulcytes# 8.7 x10 Not Jenny ilable [facility] [address] [address], [place], [address], 07/02/2025 10:24:57 07/02/20 25 07/02/2025 CBC lymphocytes # 1.7 x10 Not Available [facility] [address] [address], [place], [address], 07/02/2025 10:24:57 07/02/20 25 07/02/2025 CBC monocytes # 0.5 x10 Not Avai lable [facility] [address] [address], [place], [address], 07/02/2025 10:24:57 07/02/20 25 07/02/2025 GLUCO SE SCREE N glucose screen 135.0 mg/dL Not Available [facility] [address] [address], [place], [address], 07/02/2025 10:30:30 07/11/20 25 07/11/2025 GLUCO SE SCREE N glucose screen 133.0 mg/dL Not Available [facility] [address] [address], [place], [address], 07/11/2025 10:37:03 08/27/20 25 09/02/2025 CULTU RE, GROUP B STREP WITH SUSCE PTIBI LITY culture, group B strep with susceptibili ty SEE NOTE abnormal CULTU RE, GROUP B STREP WITH SUSCE PTIBI LITY Micro Numbe r: [id number] Test Statu s: Final Speci men Sourc e: Vagin al/an orect al Speci men Quali ty: Adequ ate Resul t: Group B Strep tococ cus isola bruce This isola te demon strat es induc ible clind amyci n resis tance . Note per CDC guide lines optim al recocolten toribio is achie vinicio by swabb ing both [...] Thera py Comme nts Not Available [facility] [address] [place], [address], 09/02/2025 14:26:34 09/06/20 25 09/06/2025 CBC WBC 9.9 x10 4.0-10 .5 Not Available [facility] [address] [address], [place], [address], 09/06/2025 09:32:26 09/06/20 25 09/06/2025 CBC RBC 4.29 x10 3.50-5 .50 Not Available [facility] [address] [address], [place], [address], 09/06/2025 09:32:26 09/06/20 25 09/06/2025 CBC HGB 12.6 g/dL 12.0-1 6.0 Not Available [facility] [address] [facility] 1, [place], [address], 09/06/2025 09:32:26 09/06/20 25 09/06/2025 CBC HCT 39.4 % 37.0-4 7.0 Not Available [facility] [address] [facility] 1, [place], [address], 09/06/2025 09:32:26 09/06/20 25 09/06/2025 CBC MCV 91.9 fL 80.0-9 9.9 Not Available [facility] [address] [facility] 1, [place], [address], 09/06/2025 09:32:26 09/06/20 25 09/06/2025 CBC MCH 29.3 pg 27.0-3 2.0 Not Available [facility] [address] [facility] 1, [place], [address], 09/06/2025 09:32:26 09/06/20 25 09/06/2025 CBC MCHC 31.9 g/dL 32.0-3 6.0 low Not Available [facility] [address] [facility] 1, [place], [address], 09/06/2025 09:32:26 09/06/20 25 09/06/2025 CBC RDW 13.2 % 11.5-1 4.5 Not Available [facility] [address] [facility] Qu[facility] 1, [place], [address], 09/06/2025 09:32:26 09/06/20 25 09/06/2025 CBC plt 216.3 x10 140.0- 451.0 Not Available [facility] [address] [facility] 1, [place], [address], 09/06/2025 09:32:26 09/06/20 25 09/06/2025 CBC lymphocytes % 21.4 % 20.0-5 0.0 Not Available [facility] [address] [facility] 1, [place], [address], 09/06/2025 09:32:26 09/06/20 25 09/06/2025 CBC granulcytes % 70.6 % 30.0-7 0.0 high Not Available [facility] [address] [facility] 1, [place], [address], 09/06/2025 09:32:26 09/06/20 25 09/06/2025 CBC monocytes % 5.8 % 2.0-16 .0 Not Available [facility] [address] [facility] 1, [place], [address], 09/06/2025 09:32:26 09/06/20 25 09/06/2025 CBC granulcytes# 7.0 x10 Not Jenny ilable [facility] [address] [facility], [place], [address], 09/06/2025 09:32:26 09/06/20 25 09/06/2025 CBC lymphocytes # 2.1 x10 Not Available [facility] [address] [facility], [place], [address], 09/06/2025 09:32:26 09/06/20 25 09/06/2025 CBC monocytes # 0.6 x10 Not Avai lable [facility] [address] [facility], [place], [address], 09/06/2025 09:32:26 09/06/20 25 09/06/2025 CMP (FEMA LE) glucose 84.0 mg/dL 60.0-9 9.0 Not Available [facility] [address] [facility], [place], [address], 09/06/2025 09:46:52 09/06/2009/06/2025 CMP (FEMA LE) BUN (blood urea nitrogen) 5.0 mg/dL 10.0-2 6.0 low Not Available [facility] [address] [facility], [place], [address], 09/06/2025 09:46:52 09/06/20 09/06/2025 CMP (FEMA LE) creatinine (serum) 0.5 mg/dL 0.4-1. 5 Not Available [facility] [address] [facility], [place], [address], 09/06/2025 09:46:52 09/06/20 25 09/06/2025 CMP (FEMA LE) BUN/creatini ne ratio 10.00 ratio Not Available [facility] [address] [facility], [place], [address], 09/06/2025 09:46:52 09/06/2009/06/2025 CMP (FEMA LE) eGFR calculated 154.0 Not Available [facility] [address] [facility], [place], [address], 09/06/2025 09:46:52 09/06/2009/06/2025 CMP (FEMA LE) total protein 7.0 g/dL 6.0-8. 5 Not Available [facility] [address] [facility], [place], [address], 09/06/2025 09:46:52 09/06/20 25 09/06/2025 CMP (FEMA LE) total bilirubin 0.6 mg/dL 0.2-1. 3 Not Available [facility] [address] [facility], [place], [address], 09/06/2025 09:46:52 09/06/20 25 09/06/2025 CMP (FEMA LE) albumin 4.1 g/dL 3.5-5. 5 Not Available [facility] [address] [facility], [place], [address], 09/06/2025 09:46:52 09/06/20 25 09/06/2025 CMP (FEMA LE) globulin 2.9 calc Not Available [facility] [address] [facility], [place], [address], 09/06/2025 09:46:52 09/06/2009/06/2025 CMP (FEMA LE) AST (SGOT) 33.0 U/L 0.0-46 .0 Not Available [facility] [address] [facility] [address], [place], [address], 09/06/2025 09:46:52 09/06/2009/06/2025 CMP (FEMA LE) altv (SGPT) 22.0 U/L 13.0-6 9.0 normal Not Available [facility] [address] [facility] 1, [place], [address], 09/06/2025 09:46:52 09/06/2009/06/2025 CMP (FEMA LE) A/G ratio 1.4 ratio Not Available [facility] [address] [facility] [address], [place], [address], 09/06/2025 09:46:52 09/06/2009/06/2025 CMP (FEMA LE) ALP phos 160.0 U/L 30.0-1 40.0 abnormal Not Available [facility] [address] [facility] 1, [place], [address], 09/06/2025 09:46:52 09/06/2009/06/2025 CMP (FEMA LE) calcium 9.0 mg/dL 8.4-10 .5 Not Available [facility] [address] [facility] 1, [place], [address], 09/06/2025 09:46:52 09/06/2009/06/2025 CMP (FEMA LE) sodium 137.0 mmol/ L 136.0- 145.0 Not Available [facility] [address] [facility] 1, [place], [address], 09/06/2025 09:46:52 09/06/20 25 09/06/2025 CMP (FEMA LE) potassium 3.4 mmol/ L 3.5-5. 1 low Not Available [facility] [address] [facility], [place], [address], 09/06/2025 09:46:52 09/06/20 25 09/06/2025 CMP (FEMA LE) chloride 105.0 mmol/ L 98.0-1 10.0 normal Not Available [facility] [address] [facility] 1, [place], [address], 09/06/2025 09:46:52 09/06/2009/06/2025 CMP (FEMA LE) C02 24.0 mmol/ L 22.0-3 1.0 Not Available [facility] [address] [facility] 1, [place], [address], 09/06/2025 09:46:52 09/06/20 25 09/06/2025 CMP (FEMA LE) anion gap 8.0 calc Not Available [facility] [address] [facility] 1, [place], [address], 09/06/2025 09:46:52 09/06/2009/06/2025 CMP (FEMA LE) osmolality 279.9 calc Not Available [facility] [address] [facility] 1, [place], [address], 09/06/2025 09:46:52 09/06/2009/06/2025 LIPID PROFI LE (FEMA LE) cholesterol 195.0 mg/dL 0.0-20 0.0 Not Available [facility] [address] [place] [facility], [place], [address], 09/06/2025 09:46:55 09/06/2009/06/2025 LIPID PROFI LE (FEMA LE) trig 114.0 mg/dL 0.0-15 0.0 Not Available [facility] [address] [facility] [address] [address], [place], [address], 09/06/2025 09:46:55 09/06/20 25 09/06/2025 LIPID PROFI LE (FEMA LE) HDL - direct 74.0 mg/dL >40.0 Not Available [facility] [address] [facility], [place], [address], 09/06/2025 09:46:55 09/06/20 25 09/06/2025 LIPID PROFI LE (FEMA LE) VLDL - direct 22.8 mg/dL Not Available [facility] [address] [address], [place], [address], 09/06/2025 09:46:55 09/06/20 25 09/06/2025 LIPID PROFI LE (FEMA LE) LDL - direct 98.2 mg/dL 0.0-13 0.0 Not Available [facility] [address] [facility] [address] [address], [place], [address], 09/06/2025 09:46:55 09/06/2009/06/2025 TSH TSH 1.69 uIU/m L 0.49-3 .82 Not Available [facility] [address] [facility] [address] [address], [place], [address], 09/06/2025 10:02:31 09/06/2009/06/2025 HBA1C hemaglobin A1C 5.4 4.2-6. 5 Not Available [facility] [address] [facility], [place], [address], 09/06/2025 12:51:07 02/19/20 25 02/12/2025 US, obste tric, 1st trime ster No observ ation record ed. [email or web address] Not Available 02/19 09:09:34 04/25/20 25 04/18/2025 US, obste tric, follo w-up No observ ation record ed. [email or web address] [facility] [address] [place], [address], 04/29/2025 09:24:34 05/11/20 25 05/07/2025 US, obste tric, 2nd trime ster No observ ation record ed. [facility] [address] [place], [address], 05/13/2025 17:57:21 07/05/20 25 07/02/2025 imagi ng/di agnos tic resul t No observ ation record ed. [facility] [address] [place], [address], 07/09/2025 10:35:54 Result Notes None recorded. Problems Name Problem SNOMED Code Status Onset Date Resolution Date Notes Provider Name and Address Organization Details Recorded Time Rheumatoid arthritis 49630616 Active 2022 KERWIN roper [facility] 5 14:16:25 Pain of knee region 9976393727 Completed 202301/24/2025 KERWIN roper [facility] 5 14:16:23 Family history of diabetes mellitus 523869977 Active 2023 KERWIN roper [facility] 5 14:16:18 Normal 52683853 Active 2024 ROXI Vang [facility] 5 10:22:35 Normal 11885259 Active 2024 ROXI Vang [facility] 5 10:22:35 Placenta previa partialis 88134349 Active 2024 Alvaro Angelo MD [address] [place], [address], [facility] 02:46:26 Low-lying placenta 423601440 Active 2024 Alvaro Angelo MD [address] [place], [address], [facility] 11:36:47 Problem Notes None recorded. Procedures Surgical History Date Name Laterality Status Provider Name and Address Organization Details Recorded Time 02/27/20 25 Date of Last Pap Smear completed [facility] 09/02/2025 18:39:21 02/27/20 25 liquid based cervical cytology screening completed [facility] 09/02/2025 18:39:54 01/31/20 24 colposcopy completed [facility] 01/24/2025 14:17:49 01/31/20 24 hysteroscopy completed [facility] 01/24/2025 14:18:46 arthroscopy of left knee joint completed [facility] 01/24/2025 14:17:01 cholecystectomy completed [facility] 01/24/2025 14:17:33 Imaging Results None recorded. Procedure Notes None recorded. Medical Equipment None Reported. Allergies Allergen ID Allergen Name Allergen Category Reaction Reaction Severity Criticality Documentation Date Start Date Code Code System Note Provider Name and Address Organization Details Recorded Time 41811 Bactrim medicatio n hives moderate Not available 05/21/2023 17642 9 RxNorm TREJOSE RAUL NEULORI Vang [facility] 15:30:03 90157 Product containin g penicilli n (product) medicatio n hives moderate Not available 05/21/2023 74880 8001 SNOMED TREBA NEUSCHWAN [facility] 5 15:30:03 55248 Augmentin medicatio n hives moderate Not available 01/24/2025 89070 2 RxNorm KERWIN DUNAWAY [facility] 5 14:19:18 90246 Celebrex medicatio n other moderate Not available 01/24/2025 83956 7 RxNorm TREBA NEUSCHWAN [facility] 5 15:30:03 88012 Substance with sulfonami de structure and antibacte rial mechanism of action (substanc e) medicatio n hives moderate Not available 04/18/2025 75436 8003 SNOMED TREBA NEUSCHWAN [facility] 5 15:30:03 58208 amoxicill in / clavulana te medicatio n hives Not available high 09/06/20252022 55568 RxNorm Yessy ates PCN and amoxi cilli n fine Not Available anna - [employer] - prod 5 07:58:34 72724 celecoxib medicatio n Not available Not available high 09/06/20252022 00570 7 RxNorm Not Available anna - [employer] - prod 5 07:58:34 17505 amoxicill in medicatio n Not available Not available low 09/27/20252023 723 RxNorm Not Available anna - [employer] - prod 5 13:40:54 40368 clavulani c acid Not available Not available Not available low 09/27/20252023 10079 RxNorm Not Available anna - [employer] - prod 5 13:40:54 89294 sulfameth oxazole medicatio n Not available Not available Not available 09/27/20252023 54403 RxNorm Not Available anna - [employer] - prod 13:40:54 46371 trimethop rim medicatio n Not available Not available Not available 09/27/20252023 05922 RxNorm Not Available [place] [employer] - prod 13:40:54 Medications Name [...] Organization Details Last Updated DateTime 170.18 cm 38.8 kg/m2 851591. 91 g 20 /min 96 % 80 /min 99 [degF] 126/64 mm[Hg] KERWIN DUNAWAY [facility] 14:29:18 Social History Question Answer Notes LastModified by [email or web address] Details LastModified Time Tobacco Smoking Status [facility] 01/24/2023 10:09:31 Are You Blind Or Do You Have Difficulty Seeing? No Information not available 01/24/2025 Are You Deaf Or Do You Have Serious Difficulty Hearing? No [email or web address] Information not available 01/24/2023 When Did You Quit Smoking? 1-5yearssinc elastcigaret te [email or web address] Information not available 01/24/2023 Do You Work In Healthcare? No Information not available 01/24/2025 What Was The Date Of Your Most Recent Tobacco Screening? 03/26/2025 [email or web address] Information not available 03/26/2025 What Is Your Relationship Status? Information not available 01/24/2025 Have You Recently Traveled Abroad? No [email or web address] Information not available 01/24/2023 Do You Have Difficulty Walking Or Climbing Stairs? No [email or web address] Information not available 01/24/2023 Sex: Unknown Functional [...] you have difficulty doing errands alone? No [email or web address] Information not available 01/24/2023 Are you able to care for yourself independently? Yes [email or web address] Information not available 01/24/2023 What is your [...] difficulty concentrating, remembering or making decisions? No [email or web address] Information no t available 01/24/2023 Family History Relationship Description Onset Age of this Age Resolved Age Notes LastModified by Organization Details LastModified Time Father Diabetes mellitus [email or web address] Not available 2023 09:43:45 Paternal Grandmother Malignant [...] Recorded Time IPV 09/28/2000 completed Susan roper [facility] 10/09/2024 09:35:10 MMR 04/11/1996 completed Susan roper [facility] 10/09/2024 09:35:10 MMR 09/28/2000 completed Susan roper [facility] 10/09/2024 09:35:10 Tdap 11/17/2010 completed Susan roper [facility] 10/09/2024 09:35:10 Tdap 02/20/2015 completed Susan roper [facility] 10/09/2024 09:35:10 Hep B, unspecified formulation 1995 completed Susan roper [facility] 10/09/2024 09:35:10 Hep B, unspecified formulation 02/28/1996 completed Susan roper [facility] 10/09/2024 09:35:10 Hep B, unspecified formulation 1995 completed Susan roper [facility] LRemigioLRemigioCRemigio 10/09/2024 09:35:10 OPV, trivalent 1995 completed Susan roper [facility] 10/09/2024 09:35:10 OPV, trivalent 02/28/1996 completed Susan Wilson null, [facility] 10/09/2024 09:35:10 OPV, trivalent 1995 completed Susan Wilson null, [facility] 10/09/2024 09:35:10 DTP-Hib 11/29/1996 completed Susan Wilson null, [facility] 10/09/2024 09:35:10 DTP-Hib 1995 completed Susan Wilson null, [facility] 10/09/2024 09:35:10 DTP-Hib 02/28/1996 completed Susan Wilson null, [facility] 10/09/2024 09:35:10 DTP-Hib 1995 completed Susan Wilson null, [facility] 10/09/2024 09:35:10 DTaP 09/28/2000 completed Susan Wilson null, [facility] 10/09/2024 09:35:10 Past Encounters Encounter ID Performer Location Encounter Start Date Encounter Closed Date Diagnosis/Indication Diagnosis SNOMED-CT Code Diagnosis ICD10 Code Diagnosis IMO Codes Diagnosis Note [id number] Alvaro Angelo MD [facility] ([facility]) [address] [place] [address] 08/27/2025 10:35:57 08/27/2025 11:34:41 Normal 41957252 Z34.83 Gestation period, 36 weeks 71269484 Z3A.36 [id number] Alvaro Angelo MD [facility] ([facility]) [address] [place] [address] 09/03/2025 10:32:59 09/03/2025 11:48:15 Multigravida 239563623 Z34.83 [id number] Gestation period, 37 weeks 43013689 Z3A.37 [id number] Giovani Yu MD [facility] ([facility]) [address] [place] [address] 5 09/06/2025 07:58:00 09/11/2025 03:58:55 Adult health examination 150217355 Z00.00 [id number] LISSETH SETHI [facility] ([facility]) [address] [place] [address] 5 09/06/2025 07:58:35 09/11/2025 03:58:55 Physical examination 6757777 Z00.00 [id number] Alvaro Angelo MD [facility]) [address] [place] [address] 5 09/10/2025 13:45:56 09/10/2025 14:47:57 Multigravida 689493722 Z34.83 [id number] Gestation period, 38 weeks 69989300 Z3A.38 [id number] Alvaro Angelo MD [facility] ([facility]) [address] [place] [address] 5 09/17/2025 10:35:44 09/17/2025 11:14:06 Normal in multigravida 9314596959 40868 Z34.80 38753318 Gestation period, 39 weeks 00986696 Z3A.39 [id number] Alvaro Angelo MD [facility] ([facility]) [address] [place] [address] 5 09/24/2025 10:36:35 09/24/2025 11:31:14 Normal 52879395 Z34.83 57211215 Gestation period, 40 weeks 18880072 Z3A.40 [id number] [id number] Alvaro Angelo MD [facility] ([facility]) [address] [place] [address] 5 09/25/2025 14:03:38 09/28/2025 18:00:37 Normal 53777808 Z34.83 Gestation period, 40 weeks 95488112 Z3A.40 [id number] Health Concerns Section Related Observation LastModified by Organization Detai ls LastModified Time None Recorded Concern Status LastModified by Organization Details LastModified Time None Recorded Payers Encounter Date Sequence Insurance Name Policy Number Policy Fierro Covered Member ID Fierro Member ID Guarantor Name 09/25/2025 1 [place] [id number] Jeffy Zimmerman [id number] Jeffy Zimmerman Notes Date Note Type [...] vagina. Pt unsure if water is broke Alvaro Angelo MD [address] [place] [address], [phone], [facility] 09/28/2025 05:38:08 OBGyn Episode Ob Episode Information Episode Created Date Number of Fetuses Patient Bloodtype Patient rh Status Prepregnancy Weight lbs Domestic Partner Domestic Partner Phone Father Name Iso Coordinator Status 01/25/20 25 1 O Positive Damián [...] Resolution Snomed Code Not e Normal 02/25/2025 [id number] Merrill Calculation Initial Merrill Date Initial Exam [...] Weight in lbs Pre/Post Dialysis Refused Weight 227.489806881225 BP Diastolic BP Location Tested BP Systolic [...] Weight in lbs Pre/Post Dialysis Refused Weight 221.383487549558 BP Diastolic BP Location Tested BP Systolic [...] Weight in lbs Pre/Post Dialysis Refused Weight 221.796429229179 BP Diastolic BP Location Tested BP Systolic [...] Weight in lbs Pre/Post Dialysis Refused Weight 225.672873865078 BP Diastolic BP Location Tested BP Systolic [...] Weight in lbs Pre/Post Dialysis Refused Weight 230.414976198232 BP Diastolic BP Location Tested BP Systolic BP Type 62 L arm 106 Fetus Heart Rate Present A 148 Present Fetus Movement A Yes Comments heartburn Flowsheet Date 06/18/2025 Sierra Score Blood Edema Fundus Height Fundus Units Glucose Ketones Leukocytes Nitrite Labor Signs Protein Cervic Dilation Cervic Effacement Cervic Station Type Weight in lbs Pre/Post Dialysis Refused Weight 229.7822555805 BP Diastolic BP Location Tested BP Systolic [...] Weight in lbs Pre/Post Dialysis Refused Weight 234.211178850747 BP Diastolic BP Location Tested BP Systolic [...] Weight in lbs Pre/Post Dialysis Refused Weight 232.998000790403 BP Diastolic BP Location Tested BP Systolic [...] Weight in lbs Pre/Post Dialysis Refused Weight 236.095147359652 BP Diastolic BP Location Tested BP Systolic BP Type 76 120 Fetus Heart Rate Present A 144 Present Fetus Movement A Yes Comments mild swelling, heartburn int ermittent Flowsheet Date 08/13/2025 Sierra Score Blood Edema Fundus Height Fundus Units Glucose Ketones Leukocytes Nitrite Labor Signs Protein Cervic Dilation Cervic Effacement Cervic Station 34 cm none trace [place] neg Type Weight in lbs Pre/Post Dialysis Refused Weight 239.452292791196 BP Diastolic BP Location Tested BP Systolic [...] Weight in lbs Pre/Post Dialysis Refused Weight 241.676915784143 BP Diastolic BP Location Tested BP Systolic [...] Cervic Effacement Cervic Station none none Negative [place] neg 2cm 70% -3 Type Weight in lbs Pre/Post Dialysis Refused Weight 241.317594634742 BP Diastolic BP Location Tested BP Systolic [...] Weight in lbs Pre/Post Dialysis Refused Weight 243.697285419265 BP Diastolic BP Location Tested BP Systolic BP Type 70 120 Fetus Heart Rate Present Fetus Movement Comments Flowsheet Date 09/10/2025 Sierra Score Blood Edema Fundus Height Fundus Units Glucose Ketones Leukocytes Nitrite Labor Signs Protein Cervic Dilation Cervic Effacement Cervic Station none trace Negative [place] neg 2cm 70% -3 Type Weight in lbs Pre/Post Dialysis Refused Weight 243.313656109216 BP Diastolic BP Location Tested BP Systolic [...] Weight in lbs Pre/Post Dialysis Refused Weight 242.146465560427 BP Diastolic BP Location Tested BP Systolic BP Type 70 122 Fetus Heart Rate Present A 164 Present Fetus Movement A Yes Comments low back pain, vaginal press ure, swelling in hands/feet Flowsheet Date 09/24/2025 Sierra Score Blood Edema Fundus Height Fundus Units Glucose Ketones Leukocytes Nitrite Labor Signs Protein Cervic Dilation Cervic Effacement Cervic Station none 1+ Negative [place] trace 3cm 70% -4 Type Weight in lbs Pre/Post Dialysis Refused Weight 244.208349588708 BP Diastolic BP Location Tested BP Systolic [...] Weight in lbs Pre/Post Dialysis Refused Weight 248.732977058626 BP Diastolic BP Location Tested BP Systolic [...] Estim ated Date of Delivery false Thalassemia (Venezuelan, New Zealander, Mediterranean, Or Background): MCV < 80 false Neural Tube Defect (Meningomyelocele, Spina Bifi da, Or Anencephaly) false Congenital Heart Defect false Down Syndrome false Maco-Sachs (eg, Hinduism, Cajun, Romanian-Foster) f alse Dustin Disease false Sickle Cell Disease Or Trait () false Hemophilia Or Other Blood Disorders false Muscular Dystrophy false Cystic Fibrosis false Orlando's Chorea false Intellectual Disability/Autism false If Yes, [...]
--- OUTSIDE RECORDS SUMMARY | 2025-09-30 23:40 | XMS_ITS | Continuity of Care Document ---
Author Organization [facility] Fabio Myers [facility] Rafael, [place], [facility] ([facility]) Address [address] [place] [address] Assessment No assessment recorded. Plan of Treatment [...] ETE color YELLOW yellow normal Not Available [facility] [address] [place], [address], 02/27/2025 22:28:50 02/27/20 25 02/27/2025 URINA LYSIS , COMPL ETE appearance CLEAR clear normal Not Available [facility] [address] [place], [address], 02/27/2025 22:28:50 02/27/20 25 02/27/2025 URINA LYSIS , COMPL ETE specific gravity 1.012 1.001- 1.035 normal Not Available [facility] [address] [place], [address], 02/27/2025 22:28:50 02/27/20 25 02/27/2025 URINA LYSIS , COMPL ETE pH 7.5 5.0-8. 0 normal Not Available [address], [address], 02/27/2025 22:28:50 02/27/20 25 02/27/2025 URINA LYSIS , COMPL ETE glucose NEGATI VE negati ve normal Not Available [address], [address], 02/27/2025 22:28:50 02/27/20 25 02/27/2025 URINA LYSIS , COMPL ETE bilirubin NEGATI VE negati ve normal Not Available [address], [address], 02/27/2025 22:28:50 02/27/20 25 02/27/2025 URINA LYSIS , COMPL ETE ketones NEGATI VE negati ve normal Not Available [address], [address], 02/27/2025 22:28:50 02/27/20 25 02/27/2025 URINA LYSIS , COMPL ETE occult blood NEGATI VE negati ve normal Not Available [facility] [address], [address], 02/27/2025 22:28:50 02/27/20 25 02/27/2025 URINA LYSIS , COMPL ETE protein NEGATI VE negati ve normal Not Available [facility] [address], [address], 02/27/2025 22:28:50 02/27/20 25 02/27/2025 URINA LYSIS , COMPL ETE nitrite NEGATI VE negati ve normal Not Available [facility] [address], [address], 02/27/2025 22:28:50 02/27/20 25 02/27/2025 URINA LYSIS , COMPL ETE leukocyte esterase TRACE negati ve abnormal Not Available [address], [address], 02/27/2025 22:28:50 02/27/20 25 02/27/2025 URINA LYSIS , COMPL ETE WBC NONE SEEN /hpf < or = 5 normal Not Available [address], [address], 02/27/2025 22:28:50 02/27/20 25 02/27/2025 URINA LYSIS , COMPL ETE RBC NONE SEEN /hpf < or = 2 normal Not Available [address], [address], 02/27/2025 22:28:50 02/27/20 25 02/27/2025 URINA LYSIS , COMPL ETE squamous epithelial cells 6-10 /hpf < or = 5 abnormal Not Available [address], [address], 02/27/2025 22:28:50 02/27/20 25 02/27/2025 URINA LYSIS , COMPL ETE bacteria NONE SEEN /hpf none seen normal Not Available [address], [address], 02/27/2025 22:28:50 02/27/20 25 02/27/2025 URINA LYSIS , COMPL ETE hyaline cast NONE SEEN /lpf none seen normal Not Available [address], [address], 02/27/2025 22:28:50 02/27/20 25 02/27/2025 URINA LYSIS , COMPL ETE note This urine was jim zed for the prese nce of WBC, RBC, bacte terry, casts , and other forme d eleme nts. Only those eleme nts seen were repor bruce. Not Available [address], [address], 02/27/2025 22:28:50 02/27/20 25 02/27/2025 CBC (INCL UDES DIFF/ PLT) white blood cell count 8.9 thous and/u L 3.8-10 .8 normal Not Available [address], [address], 02/27/2025 22:28:51 02/27/20 25 02/27/2025 CBC (INCL UDES DIFF/ PLT) red blood cell count 4.42 erick on/uL 3.80-5 .10 normal Not Available [address], [address], 02/27/2025 22:28:51 02/27/20 25 02/27/2025 CBC (INCL UDES DIFF/ PLT) hemoglobin 13.2 g/dL 11.7-1 5.5 normal Not Available [address], [address], 02/27/2025 22:28:51 02/27/20 25 02/27/2025 CBC (INCL UDES DIFF/ PLT) hematocrit 41.4 % 35.0-4 5.0 normal Not Available [address], [address], 02/27/2025 22:28:51 02/27/20 25 02/27/2025 CBC (INCL UDES DIFF/ PLT) MCV 93.7 fL 80.0-1 00.0 normal Not Available [address], [address], 02/27/2025 22:28:51 02/27/20 25 02/27/2025 CBC (INCL UDES DIFF/ PLT) MCH 29.9 pg 27.0-3 3.0 normal Not Available [facility] [address], [address], 02/27/2025 22:28:51 02/27/20 25 02/27/2025 CBC (INCL [...] rajiv condi tion. Not Available [facility] [address], [address], 02/27/2025 22:28:51 02/27/20 25 02/27/2025 CBC (INCL UDES DIFF/ PLT) RDW 12.5 % 11.0-1 5.0 normal Not Available [facility] [address], [address], 02/27/2025 22:28:51 02/27/20 25 02/27/2025 CBC (INCL UDES DIFF/ PLT) platelet count 294 thous and/u L 140-40 0 normal Not Available [facility] [address], [address], 02/27/2025 22:28:51 02/27/20 25 02/27/2025 CBC (INCL UDES DIFF/ PLT) MPV 11.6 fL 7.5-12 .5 normal Not Available [facility] [address], [address], 02/27/2025 22:28:51 02/27/20 25 02/27/2025 CBC (INCL UDES DIFF/ PLT) absolute neutrophils 6408 cells /uL 1500-7 800 normal Not Available [facility] [address], [address], 02/27/2025 22:28:51 02/27/20 25 02/27/2025 CBC (INCL UDES DIFF/ PLT) absolute lymphocytes 1833 cells /uL 850-39 00 normal Not Available [address], [address], 02/27/2025 22:28:51 02/27/20 25 02/27/2025 CBC (INCL UDES DIFF/ PLT) absolute monocytes 481 cells /uL 200-95 0 normal Not Available [address], [address], 02/27/2025 22:28:51 02/27/20 25 02/27/2025 CBC (INCL UDES DIFF/ PLT) absolute eosinophils 151 cells /uL 15-500 normal Not Available [address], [address], 02/27/2025 22:28:51 02/27/20 25 02/27/2025 CBC (INCL UDES DIFF/ PLT) absolute basophils 27 cells /uL 0-200 normal Not Available [address], [address], 02/27/2025 22:28:51 02/27/20 25 02/27/2025 CBC (INCL UDES DIFF/ PLT) neutrophils 72 % normal Not Available [address], [address], 02/27/2025 22:28:51 02/27/20 25 02/27/2025 CBC (INCL UDES DIFF/ PLT) lymphocytes 20.6 % normal Not Available [address], [address], 02/27/2025 22:28:51 02/27/20 25 02/27/2025 CBC (INCL UDES DIFF/ PLT) monocytes 5.4 % normal Not Available [address], [address], 02/27/2025 22:28:51 02/27/20 25 02/27/2025 CBC (INCL UDES DIFF/ PLT) eosinophils 1.7 % normal Not Available [address] [address] [place], [address], 02/27/2025 22:28:51 02/27/20 25 02/27/2025 CBC (INCL UDES DIFF/ PLT) basophils 0.3 % normal Not Available [facility] [address] [place], [address], 02/27/2025 22:28:51 02/27/20 25 02/27/2025 HEPAT ITIS B SURFA CE ANTIG EN W/REF L CONFI RM hepatitis B surface antigen NON-RE ACTIVE non-re active normal For addit ional infor amy raphael, sabrina e refer to http: //[facility] parham healthtodd raphael.que stdia gnost ics.c om/fa q/FAQ 202 (This link is being provi ded for infor matio nal/ educa jhonathan l purpo ses only. ) Not Available [facility] [address], [address], 02/27/2025 22:28:52 02/27/20 25 02/27/2025 HEPAT ITIS [...] a test for HCV RNA (test code 51348 ) is sugge sted. For addit ional infor amy raphael pleas e refer to http: //[facility] n.que stdia gnost ics.c om/fa q/FAQ 22v1 (This link is being provi ded for infor matio nal/ educa jhonathan l purpo ses only. ) Not Available [facility] [address] [address] [place], [address], 02/27/2025 22:28:53 02/27/20 25 02/27/2025 RUBEL LA [...] with rubel la virus . Not Available [facility] [address] [address], [place], [address], 02/27/2025 22:28:53 02/27/2002/27/2025 HIV 1/2 ANTIG EN/AN [...] less than 2 years old. Not Available [address] [address] [place], [address], 02/27/2025 22:28:54 02/27/20 25 02/27/2025 RPR (DX) W/REF L TITER AND T. PALLI DUM AB, IA RPR (DX) w/refl titer and confirmatory testing NON-RE ACTIVE non-re active normal No labor atory evide nce of syphi lis. If recen t expos ure is suspe cted, submi t a new sampl e in 2-4 weeks . Not Available [facility] [address] [place], [address], 02/27/2025 22:28:55 02/27/20 25 02/27/2025 ANTIB EFREN [...] alloi mmuni zed pregn benjamin. Not Available [address] [place], [address], 02/27/2025 22:28:56 02/27/20 25 02/27/2025 ABO GROUP AND RH TYPE ABO group O Not Available [facility] [address] [address] [place], [address], 02/27/2025 22:28:57 02/27/20 25 02/27/2025 ABO GROUP AND RH TYPE Rh type RH(D) POSITI VE For addit ional infor sabrina roth e refer to http: //[facility] hayley lesterQue stDia gnost ics.c om/fa q/FAQ 111 (This link is being provi ded for infor amy trujillo/ educcatracho ring l purpo ses only. ) Not Available [facility] [address] [address] [address], [place], [address], 02/27/2025 22:28:57 02/27/20 25 02/27/2025 DRUG MONIT OR, PANEL 1, SCREE N, URINE amphetamines NEGATI VE NG/mL <500 See Note A See Note A Not Available [facility] [address] [address] [address], [place], [address], 02/27/2025 22:28:58 02/27/20 25 02/27/2025 DRUG MONIT OR, PANEL 1, SCREE N, URINE barbiturates NEGATI VE NG/mL <300 See Note A See Note A Not Available [facility] [address] [address] [address], [place], [address], 02/27/2025 22:28:58 02/27/20 25 02/27/2025 DRUG MONIT OR, PANEL 1, SCREE N, URINE benzodiazepi duane NEGATI VE NG/mL <100 See Note A See Note A Not Available [facility] [address] [address] [address], [place], [address], 02/27/2025 22:28:58 02/27/2002/27/2025 DRUG MONIT OR, PANEL 1, SCREE N, URINE cocaine metabolite NEGATI VE NG/mL <150 See Note A See Note A Not Available [facility] [address] [address] [address], [place], [address], 02/27/2025 22:28:58 02/27/20 25 02/27/2025 DRUG MONIT OR, PANEL 1, SCREE N, URINE marijuana metabolite NEGATI VE NG/mL <20 See Note A See Note A Not Available [facility] [address] [address] [address], [place], [address], 02/27/2025 22:28:58 02/27/20 25 02/27/2025 DRUG MONIT OR, PANEL 1, SCREE N, URINE methadone metabolite NEGATI VE NG/mL <100 See Note A See Note A Not Available [facility] [address] [address] [address], [place], [address], 02/27/2025 22:28:58 02/27/20 25 02/27/2025 DRUG MONIT OR, PANEL 1, SCREE N, URINE opiates NEGATI VE NG/mL <100 See Note A See Note A Not Available [address] [address] [address], [place], [address], 02/27/2025 22:28:58 02/27/20 25 02/27/2025 DRUG MONIT OR, PANEL 1, SCREE N, URINE oxycodone NEGATI VE NG/mL <100 See Note A See Note A Not Available [address] [address] [address], [place], [address], 02/27/2025 22:28:58 02/27/20 25 02/27/2025 DRUG MONIT OR, PANEL 1, SCREE N, URINE phencyclidin e NEGATI VE NG/mL <25 See Note A See Note A Not Available [address] [address] [address], [place], [address], 02/27/2025 22:28:58 02/27/20 25 02/27/2025 DRUG MONIT OR, PANEL 1, SCREE N, URINE creatinine 108.1 mg/dL > or = 20.0 Not Available [address] [address] [address], [place], [address], 02/27/2025 22:28:58 02/27/20 25 02/27/2025 DRUG MONIT OR, PANEL 1, SCREE N, URINE pH 7.7 4.5-9. 0 Not Available [address] [address] [address], [place], [address], 02/27/2025 22:28:58 02/27/20 25 02/27/2025 DRUG MONIT OR, PANEL 1, SCREE N, URINE oxidant NEGATI VE mcg/m L <200 Not Available [address] [address] [address], [place], [address], 02/27/2025 22:28:58 02/27/20 25 02/27/2025 DRUG MONIT [...] M-F, 8am to 10pm EST Not Available [address] [address] [place], [address], 02/27/2025 22:28:59 02/27/2002/27/2025 CULTU RE, URINE , ROUTI NE culture, urine, routine SEE NOTE CULTU RE, URINE , ROUTI NE Micro Numbe r: [id number] Test Statu s: Final Speci men Sourc e: Urine Speci men Quali ty: Adequ ate Resul t: No Growt h Not Available [address] [address] [place], [address], 02/27/2025 22:28:59 02/27/2003/08/2025 THINP REP TIS PAP (REFL ) HPV MRNA E6/E7 clinical information: normal Pregn ant Not Available [facility] [address] [address] [place], [address], 03/08/2025 08:16:51 02/27/2003/08/2025 THINP REP TIS PAP (REFL ) HPV MRNA E6/E7 LMP: normal NONE GIVEN Not Available [facility] [address] [address] [place], [address], 03/08/2025 08:16:51 02/27/20 25 03/08/2025 THINP REP TIS PAP (REFL ) HPV MRNA E6/E7 prev. Pap: normal NONE GIVEN Not Available [address], [address], 03/08/2025 08:16:51 02/27/2003/08/2025 THINP REP TIS PAP (REFL ) HPV MRNA E6/E7 prev. BX: normal NONE GIVEN Not Available [address] [place], [address], 03/08/2025 08:16:51 02/27/2003/08/2025 THINP REP TIS PAP (REFL ) HPV MRNA E6/E7 source: normal Cervi x, Endoc ervix Not Available [address], [address], 03/08/2025 08:16:51 02/27/2003/08/2025 THINP REP TIS PAP (REFL ) HPV MRNA E6/E7 statement of adequacy: normal Satis facto ry for evalu ation . Endoc ervic al/tr ansfo rmati on zone compo nent prese nt. Not Available [address], [address], 03/08/2025 08:16:51 02/27/2003/08/2025 THINP REP TIS PAP (REFL ) HPV MRNA E6/E7 general categorizati on: abnormal Cytol ogy Resul ts: Epith elial Cell Abnor malit y Not Available [address], [address], 03/08/2025 08:16:51 02/27/2003/08/2025 THINP REP TIS PAP (REFL ) HPV MRNA E6/E7 interpretati on/result: abnormal Low Grade Squam ous Intra epith elial Lesio n (LSIL ) Not Available [address] [place], [address], 03/08/2025 08:16:51 02/27/20 25 03/08/2025 THINP REP TIS PAP (REFL ) HPV MRNA E6/E7 comment: normal This Pap test has been evalu ated with sherice mayen techn ology . Sugge st clini rajiv corre latio n and follo w-up as clini solomon appro priat e Not Available [address] [address] [place], [address], 03/08/2025 08:16:51 02/27/20 25 03/08/2025 THINP REP TIS PAP (REFL ) HPV MRNA E6/E7 cytotechnolo gist: normal KMS, CT( CP) CT Scree pat locat ion: [address] [place] [address] [address] Not Available [address] [address] [place], [address], 03/08/2025 08:16:51 02/27/20 25 03/08/2025 THINP REP TIS PAP (REFL ) HPV MRNA E6/E7 pathologist: normal Alisha monique M.D., Board Certi fied in [place] j[place]s Patho logy and Cytop athol ogy. Phone : [phone] (elec troni c signa ture) Patho logis t Relea se Date/ Time: 03/06 09:25 AM Not Available [address] [address] [place], [address], 03/08/2025 08:16:51 02/27/20 25 03/08/2025 THINP REP [...] clini rajiv infor amy raphael. Not Available [address] [address] [place], [address], 03/08/2025 08:16:51 02/27/20 25 03/08/2025 HPV MRNA [...] infor sabrina roth e refer to http: //[facility] hayley raphael.patience stdia gnost ics.c om/fa q/FAQ 129v1 (This link if provi ded for infor amy raphael/ educa jhonathan l purpo ses only. ) Not Available [address] [address] [place], [address], 03/08/2025 08:16:53 02/27/20 25 02/26/2025 CT + NG + TV, DNA, urine /swab Chlamydia negati ve Not Available [facility] ([facility]) [address] [place] [address], [address], 02/25/2025 18:55:26 02/27/20 25 02/26/2025 CT + NG + TV, DNA, urine /swab Gonorrhea negati ve Not Available [facility] ([facility]) [address] [place] [address], [address], 02/25/2025 18:55:26 02/27/20 25 02/26/2025 CT + NG + TV, DNA, urine /swab Trichomonas negati ve Not Available [facility] ([facility]) [address] [place], [address], 02/25/2025 18:55:26 07/02/20 25 07/02/2025 CBC WBC 11.1 x10 4.0-10 .5 high Not Available [facility] [address] [facility] [address] [address], [place], [address], 07/02/2025 10:24:57 07/02/20 25 07/02/2025 CBC RBC 3.96 x10 3.50-5 .50 Not Available [facility] [address] [facility], [place], [address], 07/02/2025 10:24:57 07/02/20 25 07/02/2025 CBC HGB 12.0 g/dL 12.0-1 6.0 Not Available [facility] [address] [facility] [place], [address], 07/02/2025 10:24:57 07/02/20 25 07/02/2025 CBC HCT 37.1 % 37.0-4 7.0 Not Available [facility] [address] [facility], [place], [address], 07/02/2025 10:24:57 07/02/20 25 07/02/2025 CBC MCV 93.8 fL 80.0-9 9.9 Not Available [facility] [address] [facility] [address] [facility], [place], [address], 07/02/2025 10:24:57 07/02/20 25 07/02/2025 CBC MCH 30.4 pg 27.0-3 2.0 Not Available [facility] [address] [facility], [place], [address], 07/02/2025 10:24:57 07/02/2007/02/2025 CBC MCHC 32.4 g/dL 32.0-3 6.0 Not Available [facility] [address] [facility], [place], [address], 07/02/2025 10:24:57 07/02/2007/02/2025 CBC RDW 12.9 % 11.5-1 4.5 Not Available [facility] [address] [facility], [place], [address], 07/02/2025 10:24:57 07/02/2007/02/2025 CBC plt 227.7 x10 140.0- 451.0 Not Available [facility] [address] [facility] Qu[facility], [place], [address], 07/02/2025 10:24:57 07/02/2007/02/2025 CBC lymphocytes % 15.5 % 20.0-5 0.0 low Not Available [facility] [address] [facility], [place], [address], 07/02/2025 10:24:57 07/02/2007/02/2025 CBC granulcytes % 78.3 % 30.0-7 0.0 high Not Available [facility] [address] [facility] Qu[facility], [place], [address], 07/02/2025 10:24:57 07/02/2007/02/2025 CBC monocytes % 4.2 % 2.0-16 .0 Not Available [facility] [address] [facility] hospital[facility] Qui[facility], [place], [address], 07/02/2025 10:24:57 07/02/2007/02/2025 CBC granulcytes# 8.7 x10 Not Jenny ilable [facility] [address] [facility] [address], [place], [address], 07/02/2025 10:24:57 07/02/20 25 07/02/2025 CBC lymphocytes # 1.7 x10 Not Available [facility] [address] [facility] [address], [place], [address], 07/02/2025 10:24:57 07/02/20 25 07/02/2025 CBC monocytes # 0.5 x10 Not Avai lable [facility] [address] [facility] [address], [place], [address], 07/02/2025 10:24:57 07/02/20 25 07/02/2025 GLUCO SE SCREE N glucose screen 135.0 mg/dL Not Available [facility] [address] [facility] [address], [place], [address], 07/02/2025 10:30:30 07/11/20 25 07/11/2025 GLUCO SE SCREE N glucose screen 133.0 mg/dL Not Available [facility] [address] [facility] [address], [place], [address], 07/11/2025 10:37:03 08/27/20 25 09/02/2025 CULTU RE, GROUP B STREP WITH SUSCE PTIBI LITY culture, group B strep with susceptibili ty SEE NOTE abnormal CULTU RE, GROUP B STREP WITH SUSCE PTIBI LITY Micro Numbe r: [id number] Test Statu s: Final Speci men Sourc [...] lower vagin a and rectu m (thro [facility] the anal sphin cter) . Group B [...] See Thera py Comme nts Not Available [facility] [address] [address], [place], [address], 09/02/2025 14:26:34 09/06/2009/06/2025 CBC WBC 9.9 x10 4.0-10 .5 Not Available [facility] [address] [facility] [address] [address], [place], [address], 09/06/2025 09:32:26 09/06/2009/06/2025 CBC RBC 4.29 x10 3.50-5 .50 Not Available [facility] [address] [place] [address] [facility], [place], [address], 09/06/2025 09:32:26 09/06/20 25 09/06/2025 CBC HGB 12.6 g/dL 12.0-1 6.0 Not Available [facility] [address] [facility], [place], [address], 09/06/2025 09:32:26 09/06/20 25 09/06/2025 CBC HCT 39.4 % 37.0-4 7.0 Not Available [facility] [address] [facility] [address] [facility], [place], [address], 09/06/2025 09:32:26 09/06/20 25 09/06/2025 CBC MCV 91.9 fL 80.0-9 9.9 Not Available [facility] [address] Felisha Quiñones [facility] 1, [place], [address], 09/06/2025 09:32:26 09/06/20 25 09/06/2025 CBC MCH 29.3 pg 27.0-3 2.0 Not Available [facility] [address] [facility], [place], [address], 09/06/2025 09:32:26 09/06/20 25 09/06/2025 CBC MCHC 31.9 g/dL 32.0-3 6.0 low Not Available [facility] [address] [facility], [place], [address], 09/06/2025 09:32:26 09/06/20 25 09/06/2025 CBC RDW 13.2 % 11.5-1 4.5 Not Available [facility] [address] [place] [address] [facility], [place], [address], 09/06/2025 09:32:26 09/06/20 25 09/06/2025 CBC plt 216.3 x10 140.0- 451.0 Not Available [facility] [address] [place] [address] [facility], [place], [address], 09/06/2025 09:32:26 09/06/20 25 09/06/2025 CBC lymphocytes % 21.4 % 20.0-5 0.0 Not Available [facility] [address] [facility], [place], [address], 09/06/2025 09:32:26 09/06/20 25 09/06/2025 CBC granulcytes % 70.6 % 30.0-7 0.0 high Not Available [facility] [address] [place] [address] [facility], [place], [address], 09/06/2025 09:32:26 09/06/20 25 09/06/2025 CBC monocytes % 5.8 % 2.0-16 .0 Not Available [facility] [address] [facility], [place], [address], 09/06/2025 09:32:26 09/06/2009/06/2025 CBC granulcytes# 7.0 x10 Not Jenny ilable [facility] [address] [place] [address] [address], [place], [address], 09/06/2025 09:32:26 09/06/2009/06/2025 CBC lymphocytes # 2.1 x10 Not Available [facility] [address] [place] [address] [address], [place], [address], 09/06/2025 09:32:26 09/06/20 25 09/06/2025 CBC monocytes # 0.6 x10 Not Avai lable [facility] [address] [address], [place], [address], 09/06/2025 09:32:26 09/06/2009/06/2025 CMP (FEMA LE) glucose 84.0 mg/dL 60.0-9 9.0 Not Available [facility] [address] [address], [place], [address], 09/06/2025 09:46:52 09/06/2009/06/2025 CMP (FEMA LE) BUN (blood urea nitrogen) 5.0 mg/dL 10.0-2 6.0 low Not Available [facility] [address] [facility] [address] [address], [place], [address], 09/06/2025 09:46:52 09/06/2009/06/2025 CMP (FEMA LE) creatinine (serum) 0.5 mg/dL 0.4-1. 5 Not Available [facility] [address] [facility] [address] [address], [place], [address], 09/06/2025 09:46:52 09/06/20 25 09/06/2025 CMP (FEMA LE) BUN/creatini ne ratio 10.00 ratio Not Available [facility] [address] [facility] [address], [place], [address], 09/06/2025 09:46:52 09/06/20 25 09/06/2025 CMP (FEMA LE) eGFR calculated 154.0 Not Available [facility] [address] [facility] [address], [place], [address], 09/06/2025 09:46:52 09/06/2009/06/2025 CMP (FEMA LE) total protein 7.0 g/dL 6.0-8. 5 Not Available [facility] [address] [facility] [address], [place], [address], 09/06/2025 09:46:52 09/06/20 25 09/06/2025 CMP (FEMA LE) total bilirubin 0.6 mg/dL 0.2-1. 3 Not Available [facility] [address] [facility] [address], [place], [address], 09/06/2025 09:46:52 09/06/20 25 09/06/2025 CMP (FEMA LE) albumin 4.1 g/dL 3.5-5. 5 Not Available [facility] [address] [facility] [address], [place], [address], 09/06/2025 09:46:52 09/06/20 25 09/06/2025 CMP (FEMA LE) globulin 2.9 calc Not Available [facility] [address] [facility] [address], [place], [address], 09/06/2025 09:46:52 09/06/20 25 09/06/2025 CMP (FEMA LE) AST (SGOT) 33.0 U/L 0.0-46 .0 Not Available [facility] [address] [facility], [place], [address], 09/06/2025 09:46:52 09/06/20 25 09/06/2025 CMP (FEMA LE) altv (SGPT) 22.0 U/L 13.0-6 9.0 normal Not Available [facility] [address] [facility] [place], [address], 09/06/2025 09:46:52 09/06/20 25 09/06/2025 CMP (FEMA LE) A/G ratio 1.4 ratio Not Available [facility] [address] [facility] [address], [place], [address], 09/06/2025 09:46:52 09/06/20 25 09/06/2025 CMP (FEMA LE) ALP phos 160.0 U/L 30.0-1 40.0 abnormal Not Available [facility] [address] [facility], [place], [address], 09/06/2025 09:46:52 09/06/20 25 09/06/2025 CMP (FEMA LE) calcium 9.0 mg/dL 8.4-10 .5 Not Available [facility] [address] [facility] [address], [place], [address], 09/06/2025 09:46:52 09/06/20 25 09/06/2025 CMP (FEMA LE) sodium 137.0 mmol/ L 136.0- 145.0 Not Available [facility] [address] [facility], [place], [address], 09/06/2025 09:46:52 09/06/20 25 09/06/2025 CMP (FEMA LE) potassium 3.4 mmol/ L 3.5-5. 1 low Not Available [facility] [address] [facility], [place], [address], 09/06/2025 09:46:52 09/06/2009/06/2025 CMP (FEMA LE) chloride 105.0 mmol/ L 98.0-1 10.0 normal Not Available [facility] [address] [facility], [place], [address], 09/06/2025 09:46:52 09/06/2009/06/2025 CMP (FEMA LE) C02 24.0 mmol/ L 22.0-3 1.0 Not Available [facility] [address] [facility], [place], [address], 09/06/2025 09:46:52 09/06/2009/06/2025 CMP (FEMA LE) anion gap 8.0 calc Not Available [facility] [address] [facility], [place], [address], 09/06/2025 09:46:52 09/06/2009/06/2025 CMP (FEMA LE) osmolality 279.9 calc Not Available [facility] [address] [facility], [place], [address], 09/06/2025 09:46:52 09/06/2009/06/2025 LIPID PROFI LE (FEMA LE) cholesterol 195.0 mg/dL 0.0-20 0.0 Not Available [facility] [address] [place] [facility], [place], [address], 09/06/2025 09:46:55 09/06/2009/06/2025 LIPID PROFI LE (FEMA LE) trig 114.0 mg/dL 0.0-15 0.0 Not Available [facility] [address] [facility], [place], [address], 09/06/2025 09:46:55 09/06/20 25 09/06/2025 LIPID PROFI LE (FEMA LE) HDL - direct 74.0 mg/dL >40.0 Not Available [facility] [address] [facility], [place], [address], 09/06/2025 09:46:55 09/06/20 25 09/06/2025 LIPID PROFI LE (FEMA LE) VLDL - direct 22.8 mg/dL Not Available [facility] [address] [facility], [place], [address], 09/06/2025 09:46:55 09/06/20 25 09/06/2025 LIPID PROFI LE (FEMA LE) LDL - direct 98.2 mg/dL 0.0-13 0.0 Not Available [place] [address] [facility], [place], [address], 09/06/2025 09:46:55 09/06/20 25 09/06/2025 TSH TSH 1.69 uIU/m L 0.49-3 .82 Not Available [place] [address] [place] [facility], [place], [address], 09/06/2025 10:02:31 09/06/20 25 09/06/2025 HBA1C hemaglobin A1C 5.4 4.2-6. 5 Not Available [place] [address] [facility], [place], [address], 09/06/2025 12:51:07 02/19/20 25 02/12/2025 US, chadwick martinez, 1st trime ster No observ ation record ed. [email or web address] Not Available 02/19 09:09:34 04/25/20 25 04/18/2025 US, chadwick martinez, follo w-up No observ ation record ed. [email or web address] [facility] [address] [facility] [place], [address], 04/29/2025 09:24:34 05/11/20 25 05/07/2025 US, obste tric, 2nd trime ster No observ ation record ed. [address] [place], [address], 05/13/2025 17:57:21 07/05/20 25 07/02/2025 imagi ng/di agnos tic resul t No observ ation record ed. [facility] [address] [place], [address], 07/09/2025 10:35:54 Result Notes None recorded. Problems Name Problem SNOMED Code Status Onset Date Resolution Date Notes Provider Name and Address Organization Details Recorded Time Rheumatoid arthritis 89956479 Active 2022 KERWIN roper [facility] 5 14:16:25 Pain of knee region 8122788086 Completed 202301/24/2025 KERWIN roper [facility] 5 14:16:23 Family history of diabetes mellitus 470597576 Active 2023 KERWIN roper [facility] 5 14:16:18 Normal 15116388 Active 2024 TREBA NEUSCHWAN KAVITHA null, [facility] 5 10:22:35 Normal 25212577 Active 2024 TREBA NEUSCHWAN KAVITHA null, [facility] 5 10:22:35 Placenta previa partialis 70852696 Active 2024 Alvaro Angeol MD [address] [place], [address], [facility] 02:46:26 Low-lying placenta 400284996 Active 2024 Alvaro Angelo MD [address] [place] [address], [address], [facility], LAlisaCRemigio 11:36:47 Problem Notes None recorded. Procedures Surgical History Date Name Laterality Status Provider Name and Address Organization Details Recorded Time 02/27/20 25 Date of Last Pap Smear completed [facility] 09/02/2025 18:39:21 02/27/20 25 liquid based cervical cytology screening completed [facility], LRemigioLRemigioC. 09/02/2025 18:39:54 01/31/20 24 colposcopy completed [facility], LRemigioLRemigioCRemigio 01/24/2025 14:17:49 01/31/20 24 hysteroscopy completed [facility] 01/24/2025 14:18:46 arthroscopy of left knee joint completed [facility], LRemigioLRemigioCRemigio 01/24/2025 14:17:01 cholecystectomy completed [facility] 01/24/2025 14:17:33 Imaging Results None recorded. Procedure Notes None recorded. Medical Equipment None Reported. Allergies Allergen ID Allergen Name Allergen Category Reaction Reaction Severity Criticality Documentation Date Start Date Code Code System Note Provider Name and Address Organization Details Recorded Time 02887 Bactrim medicatio n hives moderate Not available 05/21/2023 95012 9 RxNorm ROXI Vang [facility], VikiLRemigioCRemigio 5 15:30:03 26397 Product containin g penicilli n (product) medicatio n hives moderate Not available 05/21/2023 20130 8001 SNOMED TREBA MANFRED Vang [facility] LRemigioL.C. 5 15:30:03 88985 Augmentin medicatio n hives moderate Not available 01/24/2025 87332 2 RxNorm [facility] 5 14:19:18 46986 Celebrex medicatio n other moderate Not available 01/24/2025 31267 7 RxNorm TREBA NEUSCHWAHailey KAVITHA [facility] 5 15:30:03 36753 Substance with sulfonami de structure and antibacte rial mechanism of action (substanc e) medicatio n hives moderate Not available 04/18/2025 20447 8003 SNOMED TREBA TATYSCHWAHailey PLUMMER [facility] 5 15:30:03 27696 amoxicill in / clavulana te medicatio n hives Not available high 09/06/20252022 13024 RxNorm Yessy ates PCN and amoxi cilli n fine Not Available anna - External Data Service - prod 5 07:58:34 72154 celecoxib medicatio n Not available Not available high 09/06/20252022 14214 7 RxNorm Not Available anna - External Data Service - prod 5 07:58:34 83022 amoxicill in medicatio n Not available Not available low 09/27/20252023 723 RxNorm Not Available anna - External Data Service - prod 5 13:40:54 92061 clavulani c acid Not available Not available Not available low 09/27/20252023 96367 RxNorm Not Available anna - External Data Service - prod 5 13:40:54 59573 sulfameth oxazole medicatio n Not available Not available Not available 09/27/20252023 60704 RxNorm Not Available anna - External Data Service - prod 5 13:40:54 64535 trimethop rim medicatio n Not available Not available Not available 09/27/20252023 02952 RxNorm Not Available dewey - External Data Service - prod 13:40:54 [...] Updated DateTime 5 170.18 cm 38.1 kg/m2 958863. 75 g 98 % 102 /min 18 /min 98.9 [degF] 118/70 mm[Hg] ROXI SHEARER [facility] 5 14:01:34 Social History Question Answer Notes LastModified by Organizat ion Details LastModified Time Tobacco Smoking Status Former Smoker ANTONIO roper, [facility] 01/24/2023 10:09:31 Are You Blind Or [...] Have Difficulty Walking Or Climbing Stairs? No [email or web address] Information not available 01/24/2023 Sex: Unknown Functional [...] independently without assistance or assistive devices? YESWOREST [email or web address] Information not available 01/24/2023 Do you have difficulty doing errands alone? No [email or web address] Information not available 01/24/2023 Are you able to care for yourself independently? 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 No [email or web address] Information not available 01/24/2023 Do you or have you ever used e-cigarettes or vape? Former user of electronic cigarettes Information not available 01/24/2025 Mental Status Question Answer Note LastModified by Organization D etails LastModified Time Do you have difficulty concentrating, remembering or making decisions? No [email or web address] Information no t available 01/24/2023 Family History Relationship Description Onset Age of this Age Resolved Age Notes LastModified by Organization Details LastModified Time Father Diabetes mellitus [email or web address] Not available 2023 09:43:45 Paternal Grandmother Malignant [...] Organization Details Recorded Time IPV 09/28/2000 completed Susansae roper, [facility] 10/09/2024 09:35:10 MMR 04/11/1996 completed Suasn Wilson null, [facility] 10/09/2024 09:35:10 MMR 09/28/2000 completed Susan Wilson null, [facility] 10/09/2024 09:35:10 Tdap 11/17/2010 completed [facility] 10/09/2024 09:35:10 Tdap 02/20/2015 completed Susan Wilson null, [facility] 10/09/2024 09:35:10 Hep B, unspecified formulation 1995 completed Susan Wilson null, [facility] 10/09/2024 09:35:10 Hep B, unspecified formulation 02/28/1996 completed [facility] 10/09/2024 09:35:10 Hep B, unspecified formulation 1995 completed Susan Wilson null, [facility] 10/09/2024 09:35:10 OPV, trivalent 1995 completed Susan Wilson null, [facility] 10/09/2024 09:35:10 OPV, trivalent 02/28/1996 completed Susan Wilson null, [facility] 10/09/2024 09:35:10 OPV, trivalent 1995 completed Susan Wilson null, [facility] 10/09/2024 09:35:10 DTP-Hib 11/29/1996 completed Susan Wlison null, [facility] 10/09/2024 09:35:10 DTP-Hib 1995 completed Susan Wilson null, [facility] 10/09/2024 09:35:10 DTP-Hib 02/28/1996 completed Susan Wilson null, [facility] 10/09/2024 09:35:10 DTP-Hib 1995 completed Susan Wilson null, [facility] 10/09/2024 09:35:10 DTaP 09/28/2000 completed Susan Wilson null, [facility] 10/09/2024 09:35:10 Past Encounters Encounter ID Performer Location Encounter Start Date Encounter Closed Date Diagnosis/Indication Diagnosis SNOMED-CT Code Diagnosis ICD10 Code Diagnosis IMO Codes Diagnosis Note [id number] Alvaro Angelo MD [facility] ([facility]) [address] [place] [address] 08/13/2025 10:44:33 08/13/2025 11:38:15 Normal 56959356 Z34.83 Gestation period, 34 weeks 17127726 Z3A.34 0660386 [id number] Alvaro Angelo MD [facility] ([facility]) [address] [place] [address] 08/27/2025 10:35:57 08/27/2025 11:34:41 Normal 53459691 Z34.83 Gestation period, 36 weeks 10211810 Z3A.36 6494349 [id number] Alvaro Angelo MD [facility]) [address] [place] [address] 09/03/2025 10:32:59 09/03/2025 11:48:15 Multigravida 303152623 Z34.83 80388787 Gestation period, 37 weeks 34791834 Z3A.37 9171303 [id number] Giovani Yu MD [facility] ([facility]) [address] [place] [phone] 09/06/2025 07:58:00 09/11/2025 03:58:55 Adult health examination 852061285 Z00.00 [id number] LISSETH SETHI [facility] ([facility]) [address] [place] [address] 09/06/2025 07:58:35 09/11/2025 03:58:55 Physical examination 9738310 Z00.00 [id number] Alvaro Angelo MD [facility]) [address] [place] [address] 09/10/2025 13:45:56 09/10/2025 14:47:57 Multigravida 620709221 Z34.83 78016796 Gestation period, 38 weeks 26585326 Z3A.38 0759289 Health Concerns Section Related Observation LastModified by Organization Detai ls LastModified Time None Recorded Concern Status LastModified by Organization Details LastModified Time None Recorded Payers Encounter Date Sequence Insurance Name Policy Number Policy Fierro Covered Member ID Fierro Member ID Guarantor Name 09/10/2025 1 [place] [id number] Jeffy Zimmerman [id number] Jeffy Zimmerman Notes Date Note Type [...] chest congestion, sore throat Alvaro Angelo MD [address] [place] [address], [phone], [facility], [facility] 09/10/2025 14:40:52 OBGyn Episode Ob Episode Information Episode Created Date Number of Fetuses Patient Bloodtype Patient rh Status Prepregnancy Weight lbs Domestic Partner Domestic Partner Phone Father Name Water Main Inspector Status 01/25/20 1 O Positive Damián [...] Resolution Snomed Code Not e Normal 02/25/2025 [id number] Harshil Calculation Initial Harshil Date Initial Exam [...] Weight in lbs Pre/Post Dialysis Refused Weight 227.763967404176 BP Diastolic BP Location Tested BP Systolic [...] Weight in lbs Pre/Post Dialysis Refused Weight 221.954668254674 BP Diastolic BP Location Tested BP Systolic [...] Weight in lbs Pre/Post Dialysis Refused Weight 221.695702644212 BP Diastolic BP Location Tested BP Systolic [...] Weight in lbs Pre/Post Dialysis Refused Weight 225.853896693635 BP Diastolic BP Location Tested BP Systolic [...] Weight in lbs Pre/Post Dialysis Refused Weight 230.458865782150 BP Diastolic BP Location Tested BP Systolic BP Type 62 L arm 106 Fetus Heart Rate Present A 148 Present Fetus Movement A Yes Comments heartburn Flowsheet Date 06/18/2025 Sierra Score Blood Edema Fundus Height Fundus Units Glucose Ketones Leukocytes Nitrite Labor Signs Protein Cervic Dilation Cervic Effacement Cervic Station Type Weight in lbs Pre/Post Dialysis Refused Weight 229.2193206258 BP Diastolic BP Location Tested BP Systolic [...] Weight in lbs Pre/Post Dialysis Refused Weight 234.388604513489 BP Diastolic BP Location Tested BP Systolic [...] Weight in lbs Pre/Post Dialysis Refused Weight 232.437342951499 BP Diastolic BP Location Tested BP Systolic [...] Weight in lbs Pre/Post Dialysis Refused Weight 236.206181303096 BP Diastolic BP Location Tested BP Systolic BP Type 76 120 Fetus Heart Rate Present A 144 Present Fetus Movement A Yes Comments mild swelling, heartburn int ermittent Flowsheet Date 08/13/2025 Sierra Score Blood Edema Fundus Height Fundus Units Glucose Ketones Leukocytes Nitrite Labor Signs Protein Cervic Dilation Cervic Effacement Cervic Station 34 cm none trace [place] Mata neg Type Weight in lbs Pre/Post Dialysis Refused Weight 239.611295501449 BP Diastolic BP Location Tested BP Systolic [...] Weight in lbs Pre/Post Dialysis Refused Weight 241.182087765622 BP Diastolic BP Location Tested BP Systolic [...] Cervic Effacement Cervic Station none none Negative [place] Mata neg 2cm 70% -3 Type Weight in lbs Pre/Post Dialysis Refused Weight 241.624041041213 BP Diastolic BP Location Tested BP Systolic [...] Weight in lbs Pre/Post Dialysis Refused Weight 243.058140568115 BP Diastolic BP Location Tested BP Systolic BP Type 70 120 Fetus Heart Rate Present Fetus Movement Comments Flowsheet Date 09/10/2025 Sierra Score Blood Edema Fundus Height Fundus Units Glucose Ketones Leukocytes Nitrite Labor Signs Protein Cervic Dilation Cervic Effacement Cervic Station none trace Negative [place] Mata neg 2cm 70% -3 Type Weight in lbs Pre/Post Dialysis Refused Weight 243.692481829132 BP Diastolic BP Location Tested BP Systolic [...] Weight in lbs Pre/Post Dialysis Refused Weight 242.235249008245 BP Diastolic BP Location Tested BP Systolic BP Type 70 122 Fetus Heart Rate Present A 164 Present Fetus Movement A Yes Comments low back pain, vaginal press ure, swelling in hands/feet Flowsheet Date 09/24/2025 Sierra Score Blood Edema Fundus Height Fundus Units Glucose Ketones Leukocytes Nitrite Labor Signs Protein Cervic Dilation Cervic Effacement Cervic Station none 1+ Negative [place] Mata trace 3cm 70% -4 Type Weight in lbs Pre/Post Dialysis Refused Weight 244.943143003973 BP Diastolic BP Location Tested BP Systolic [...] Weight in lbs Pre/Post Dialysis Refused Weight 248.536901087277 BP Diastolic BP Location Tested BP Systolic [...] Estim ated Date of Delivery false Thalassemia (Georgian, Thai, Mediterranean, Or Background): MCV < 80 false Neural Tube Defect (Meningomyelocele, Spina Bifi da, Or Anencephaly) false Congenital Heart Defect false Down Syndrome false Maco-Sachs (eg, Christianity, Cajun, Divehi-Dor[place]) f alse Dustin Disease false Sickle Cell [...]
--- OUTSIDE RECORDS SUMMARY | 2025-09-30 23:40 | XMS_ITS | Data Portability ---
Author Organization HILTON Myers [facility] [place] [facility] Address [address] [address] Assessment Encounter Date Assessment Date Assessment LastModified by Organization Details LastModified Time 09/24/2025 09/24/2025 Induction set for Tuesday night. Not available 09/24/2025 11:30:20 09/25/2025 09/25/2025 The patient's membranes are grossly ruptured. She is instructed to proceed to the hospital for evaluation and possible augmentation of labor. Not available 09/28/2025 05:35:17 Plan of Treatment Reminders Order Date Submit Date Provider Last Modified By Organization Details Last Modified Time Details Appointments POST-PART UM VISIT 2025 11:00A M Alvaro Angelo MD Not available Not available Not available Lab CBC 2024 025 [place] [facility], [address], [facility], [place], [address], 09/06/2025 09:32:26 CMP, serum or plasma 2024 025 [facility] [address], [facility], [place], [address], 09/06/2025 09:46:52 lipid panel, blood 2024 025 [place] [facility] [facility], [address], [facility], [place], [address], 09/06/2025 09:46:55 thyrotrop in, QN, serum or plasma 2024 025 [place] [facility], [address] [facility] [address], [address], [place], [address], 09/06/2025 10:02:31 hemoglobi n A1C/hemog lobin total, QN, blood 2024 025 [facility], [address] [facility], [address], [place], [address], 09/06/2025 12:51:07 Referral None recorded. Procedures None [...] WITH SUSCE PTIBI LITY Micro Numbe r: [id number] Test Statu s: Final Speci men [...] See Thera py Comme nts Not Available [facility] [address], [place], [address], 09/02/2025 14:26:34 09/06/20 25 09/06/2025 CBC WBC 9.9 x10 4.0-10 .5 Not Available [facility] [address] [facility] [address] [facility], [place], [address], 09/06/2025 09:32:26 09/06/20 25 09/06/2025 CBC RBC 4.29 x10 3.50-5 .50 Not Available [facility] [address] [facility], [place], [address], 09/06/2025 09:32:26 09/06/20 25 09/06/2025 CBC HGB 12.6 g/dL 12.0-1 6.0 Not Available [facility] [address] [facility] [address], [place], [address], 09/06/2025 09:32:26 09/06/20 25 09/06/2025 CBC HCT 39.4 % 37.0-4 7.0 Not Available [facility] [address] [facility], [place], [address], 09/06/2025 09:32:26 09/06/20 25 09/06/2025 CBC MCV 91.9 fL 80.0-9 9.9 Not Available [facility] [address] [facility], [place], [address], 09/06/2025 09:32:26 09/06/20 25 09/06/2025 CBC MCH 29.3 pg 27.0-3 2.0 Not Available [facility] [address] [facility] [address], [place], [address], 09/06/2025 09:32:26 09/06/20 25 09/06/2025 CBC MCHC 31.9 g/dL 32.0-3 6.0 low Not Available [facility] [address] [facility], [place], [address], 09/06/2025 09:32:26 09/06/20 25 09/06/2025 CBC RDW 13.2 % 11.5-1 4.5 Not Available [facility] [address] [place] [address] [facility] 1, [place], [address], 09/06/2025 09:32:26 09/06/20 25 09/06/2025 CBC plt 216.3 x10 140.0- 451.0 Not Available [facility] [address] [place] [address] [facility] 1, [place], [address], 09/06/2025 09:32:26 09/06/20 25 09/06/2025 CBC lymphocytes % 21.4 % 20.0-5 0.0 Not Available [facility] [address] [place] [address] [facility] 1, [place], [address], 09/06/2025 09:32:26 09/06/2009/06/2025 CBC granulcytes % 70.6 % 30.0-7 0.0 high Not Available [facility] [address] [place] [facility], [place], [address], 09/06/2025 09:32:26 09/06/2009/06/2025 CBC monocytes % 5.8 % 2.0-16 .0 Not Available [facility] [address] [place] [address] [facility] 1, [place], [address], 09/06/2025 09:32:26 09/06/20 25 09/06/2025 CBC granulcytes# 7.0 x10 Not Jenny ilable [facility] [address] [place] [address] [facility] 1, [place], [address], 09/06/2025 09:32:26 09/06/20 25 09/06/2025 CBC lymphocytes # 2.1 x10 Not Available [facility] [address] [facility], [place], [address], 09/06/2025 09:32:26 09/06/20 25 09/06/2025 CBC monocytes # 0.6 x10 Not Avai lable [facility] [address] [facility], [place], [address], 09/06/2025 09:32:26 09/06/20 25 09/06/2025 CMP (FEMA LE) glucose 84.0 mg/dL 60.0-9 9.0 Not Available [facility] [address] [facility] [address] [address], [place], [address], 09/06/2025 09:46:52 09/06/20 25 09/06/2025 CMP (FEMA LE) BUN (blood urea nitrogen) 5.0 mg/dL 10.0-2 6.0 low Not Available [facility] [address] [facility] [address] [address], [place], [address], 09/06/2025 09:46:52 09/06/20 25 09/06/2025 CMP (FEMA LE) creatinine (serum) 0.5 mg/dL 0.4-1. 5 Not Available [facility] [address] [facility] [address] [address], [place], [address], 09/06/2025 09:46:52 09/06/2009/06/2025 CMP (FEMA LE) BUN/creatini ne ratio 10.00 ratio Not Available [facility] [address] [facility] [address] [address], [place], [address], 09/06/2025 09:46:52 09/06/20 25 09/06/2025 CMP (FEMA LE) eGFR calculated 154.0 Not Available [facility] [address] [facility], [place], [address], 09/06/2025 09:46:52 09/06/2009/06/2025 CMP (FEMA LE) total protein 7.0 g/dL 6.0-8. 5 Not Available [facility] [address] [facility], [place], [address], 09/06/2025 09:46:52 09/06/2009/06/2025 CMP (FEMA LE) total bilirubin 0.6 mg/dL 0.2-1. 3 Not Available [facility] [address] [facility], [place], [address], 09/06/2025 09:46:52 09/06/2009/06/2025 CMP (FEMA LE) albumin 4.1 g/dL 3.5-5. 5 Not Available [facility] [address] [facility], [place], [address], 09/06/2025 09:46:52 09/06/2009/06/2025 CMP (FEMA LE) globulin 2.9 calc Not Available [facility] [address] [facility], [place], [address], 09/06/2025 09:46:52 09/06/2009/06/2025 CMP (FEMA LE) AST (SGOT) 33.0 U/L 0.0-46 .0 Not Available [facility] [address] [facility], [place], [address], 09/06/2025 09:46:52 09/06/2009/06/2025 CMP (FEMA LE) altv (SGPT) 22.0 U/L 13.0-6 9.0 normal Not Available [facility] [address] [facility] 1, [place], [address], 09/06/2025 09:46:52 09/06/20 25 09/06/2025 CMP (FEMA LE) A/G ratio 1.4 ratio Not Available [facility] [address] [facility] 1, [place], [address], 09/06/2025 09:46:52 09/06/2009/06/2025 CMP (FEMA LE) ALP phos 160.0 U/L 30.0-1 40.0 abnormal Not Available [facility] [address] [facility], [place], [address], 09/06/2025 09:46:52 09/06/2009/06/2025 CMP (FEMA LE) calcium 9.0 mg/dL 8.4-10 .5 Not Available [facility] [address] [place] [facility], [place], [address], 09/06/2025 09:46:52 09/06/20 25 09/06/2025 CMP (FEMA LE) sodium 137.0 mmol/ L 136.0- 145.0 Not Available [facility] [address] [place] [address] [facility] 1, [place], [address], 09/06/2025 09:46:52 09/06/2009/06/2025 CMP (FEMA LE) potassium 3.4 mmol/ L 3.5-5. 1 low Not Available [facility] [address] [place] [address] [facility] 1, [place], [address], 09/06/2025 09:46:52 09/06/2009/06/2025 CMP (FEMA LE) chloride 105.0 mmol/ L 98.0-1 10.0 normal Not Available [facility] [address] [place] [address] [facility] 1, [place], [address], 09/06/2025 09:46:52 09/06/20 25 09/06/2025 CMP (FEMA LE) C02 24.0 mmol/ L 22.0-3 1.0 Not Available [facility] [address] [place] [facility], [place], [address], 09/06/2025 09:46:52 09/06/20 25 09/06/2025 CMP (FEMA LE) anion gap 8.0 calc Not Available [facility] [address] [facility] 1, [place], [address], 09/06/2025 09:46:52 09/06/2009/06/2025 CMP (FEMA LE) osmolality 279.9 calc Not Available [facility] [address] [facility] 1, [place], [address], 09/06/2025 09:46:52 09/06/20 25 09/06/2025 LIPID PROFI LE (FEMA LE) cholesterol 195.0 mg/dL 0.0-20 0.0 Not Available [facility] [address] [facility] 1, [place], [address], 09/06/2025 09:46:55 09/06/20 25 09/06/2025 LIPID PROFI LE (FEMA LE) trig 114.0 mg/dL 0.0-15 0.0 Not Available [facility] [address] [facility] 1, [place], [address], 09/06/2025 09:46:55 09/06/20 25 09/06/2025 LIPID PROFI LE (FEMA LE) HDL - direct 74.0 mg/dL >40.0 Not Available [facility] [address] [facility] 1, [place], [address], 09/06/2025 09:46:55 09/06/20 25 09/06/2025 LIPID PROFI LE (FEMA LE) VLDL - direct 22.8 mg/dL Not Available [facility] [address] [place] [address] [facility] 1, [place], [address], 09/06/2025 09:46:55 09/06/2009/06/2025 LIPID PROFI LE (FEMA LE) LDL - direct 98.2 mg/dL 0.0-13 0.0 Not Available [facility] [address] [place] [facility], [place], [address], 09/06/2025 09:46:55 09/06/2009/06/2025 TSH TSH 1.69 uIU/m L 0.49-3 .82 Not Available [facility] [address] [place] [facility], [place], [address], 09/06/2025 10:02:31 09/06/2009/06/2025 HBA1C hemaglobin A1C 5.4 4.2-6. 5 Not Available [facility] [address] [place] [facility], [place], [address], 09/06/2025 12:51:07 Result Notes None recorded. Problems Name Problem SNOMED Code Status Onset Date Resolution Date Notes Provider Name and Address Organization Details Recorded Time Rheumatoid arthritis 83075537 Active 2022 KERWIN roper [facility] LRemigioLKeely 5 14:16:25 Pain of knee region 6088105890 Completed 202301/24/2025 KERWIN roper [facility], L.LRemigioCeRmigio 5 14:16:23 Family history of diabetes mellitus 042642513 Active 2023 KERWIN roper [facility], LRemigioL.CRemigio 5 14:16:18 Normal 73056278 Active 2024 ROXI Vang [facility], LRemigioLRemigioCRemigio 5 10:22:35 Normal 35536957 Active 2024 ROXI POSEYLORI KAVITHA null, [facility], LRemigioLRemigioCRemigio 5 10:22:35 Placenta previa partialis 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 Procedures Surgical History Date Name Laterality Status Provider Name and Address Organization Details Recorded Time 02/27/20 25 Date of Last Pap Smear completed [facility] [place] 09/02/2025 18:39:21 02/27/20 25 liquid based cervical cytology screening completed [facility] [place] 09/02/2025 18:39:54 01/31/[address] [facility] [place] 01/24/2025 14:17:49 01/31/[address] [facility] [place] 01/24/2025 14:18:46 arthroscopy of left knee joint completed [facility], VikiLKeely 01/24/2025 14:17:[address] [facility], [place]ikiL[facility]ely 01/24/2025 14:17:33 Imaging Results None recorded. Procedure Notes None recorded. Medical Equipment None Reported. Allergies Allergen ID Allergen Name Allergen Category Reaction Reaction Severity Criticality Documentation Date Start Date Code Code System Note Provider Name and Address Organization Details Recorded Time 22649 Bactrim medicatio n hives moderate Not available 05/21/2023 06501 9 RxNorm TREBA NEUSCHWAN KAVITHA [facility] 5 15:30:03 98980 Product containin g penicilli n (product) medicatio n hives moderate Not available 05/21/2023 32172 8001 SNOMED TREBA NEUSCHWAN KAVITHA [facility] 5 15:30:03 50984 Augmentin medicatio n hives moderate Not available 01/24/2025 52653 2 RxNorm KERWIN DUNAWAY [facility] 14:19:18 12331 Celebrex medicatio n other moderate Not available 01/24/2025 14726 7 RxNorm TREBA NEUSCHWAN KAVITHA [facility] 5 15:30:03 08876 Substance with sulfonami de structure and antibacte rial mechanism of action (substanc e) medicatio n hives moderate Not available 04/18/2025 05799 8003 SNOMED TREBA NEUSCHWAN KAVITHA [facility] 5 15:30:03 93774 amoxicill in / clavulana te medicatio n hives Not available high 09/06/20252022 91685 RxNorm Yessy ates PCN and amoxi cilli n fine Not Available anna - External Data Service - prod 5 07:58:34 31860 celecoxib medicatio n Not available Not available high 09/06/20252022 35024 7 RxNorm Not Available anna - External Data Service - prod 07:58:34 90738 amoxicill in medicatio n Not available Not available low 09/27/20252023 723 RxNorm Not Available anna - External Data Service - prod 5 13:40:54 55705 clavulani c acid Not available Not available Not available low 09/27/20252023 25799 RxNorm Not Available anna - External Data Service - prod 13:40:54 71461 sulfameth oxazole medicatio n Not available Not available Not available 09/27/20252023 26853 RxNorm Not Available anna - External Data Service - prod 13:40:54 54015 trimethop rim medicatio n Not available Not available Not available 09/27/20252023 65468 RxNorm Not Available anna - External Data [...] Updated DateTime 5 170.18 cm 38.1 kg/m2 824203. 95 g 95 /min 98 % 120/70 mm[Hg] Leigh Pickett [facility] 5 08:20:14 Date Recorded Body height Body mass index (BMI) Body weight Oxygen saturation Heart rate Respiratory rate Body temperature Systolic And Diastolic Provider Name and Address Organization Details Last Updated DateTime 5 170.18 cm 38.1 kg/m2 406460. 75 g 98 % 102 /min 18 /min 98.9 [degF] 118/70 mm[Hg] ROXI PLUMMER [facility] L.L.CRemigio 5 14:01:34 Date Recorded Body height Body mass index (BMI) Body weight Respiratory rate Heart rate Oxygen saturation Body temperature Systolic And Diastolic Provider Name and Address Organization Details Last Updated DateTime 5 170.18 cm 38 kg/m2 077430. 15 g 18 /min 85 /min 98 % 98.4 [degF] 122/70 mm[Hg] KERWIN DUNAWAY [facility] 5 10:58:00 Date Recorded Body height Body mass index (BMI) Body weight Oxygen saturation Heart rate Respiratory rate Body temperature Systolic And Diastolic Provider Name and Address Organization Details Last Updated DateTime 5 170.18 cm 38.2 kg/m2 442025. 24 g 98 % 80 /min 18 /min 97.7 [degF] 122/76 mm[Hg] ROXI PLUMMER [facility] 5 11:04:11 Date Recorded Body height Body mass index (BMI) Body weight Respiratory rate Oxygen saturation Heart rate Body temperature Systolic And Diastolic Provider Name and Address Organization Details Last Updated DateTime 5 170.18 cm 38.8 kg/m2 092337. 91 g 20 /min 96 % 80 /min 99 [degF] 126/64 mm[Hg] KERWIN DUNAWAY [facility] 5 14:29:18 Social History Question Answer Notes LastModified by Organizat ion Details LastModified Time Tobacco Smoking Status Former Smoker ANTONIO BOGDAN roper [facility] 01/24/2023 10:09:31 Are You Blind Or Do You Have Difficulty Seeing? No Information not available 01/24/2025 Are You Deaf Or Do You Have Serious Difficulty Hearing? No Information not available 01/24/2023 When Did You Quit Smoking? 1-5yearssinc elastcigaret te [email or web address] Information not available 01/24/2023 Do You Work In Healthcare? No Information not available 01/24/2025 What Was The Date Of Your Most Recent Tobacco Screening? 03/26/2025 [email or web address] Information not available 03/26/2025 What Is Your Relationship Status? Information not available 01/24/2025 Have You Recently Traveled Abroad? No [email or web address] Information not available 01/24/2023 Do You Have Difficulty Walking Or Climbing Stairs? No [email or web address] Information not available 01/24/2023 Sex: Unknown Functional [...] independently without assistance or assistive devices? YESWOREST [email or web address] Information not available 01/24/2023 Do you have difficulty doing errands alone? No [email or web address] Information not available 01/24/2023 Are you able to care for yourself independently? 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 No [email or web address] Information not available 01/24/2023 Do you or have you ever used e-cigarettes or vape? Former user of electronic cigarettes Information not available 01/24/2025 Mental Status Question Answer Note LastModified by Organization D etails LastModified Time Do you have difficulty concentrating, remembering or making decisions? No [email or web address] Information no t available 01/24/2023 Family History Relationship Description Onset Age of this Age Resolved Age Notes LastModified by Organization Details LastModified Time Father Diabetes mellitus [email or web address] Not available 2023 09:43:45 Paternal Grandmother Malignant [...] Details Recorded Time IPV 09/28/2000 completed Susan Wilsno jacquelin, [facility] 10/09/2024 09:35:10 MMR 04/11/1996 completed Susan Wilson null, [facility] 10/09/2024 09:35:10 MMR 09/28/2000 completed Susan Wilson null [facility] 10/09/2024 09:35:10 Tdap 11/17/2010 completed Susan Wilson null, [facility] 10/09/2024 09:35:10 Tdap 02/20/2015 completed Susan Wilson null, [facility] 10/09/2024 09:35:10 Hep B, unspecified formulation 1995 completed Susan Wilson null [facility] 10/09/2024 09:35:10 Hep B, unspecified formulation 02/28/1996 completed Susan Wilson null, [facility] 10/09/2024 09:35:10 Hep B, unspecified formulation 1995 completed Susan Wilson null, [facility] 10/09/2024 09:35:10 OPV, trivalent 1995 completed Susan Wilson null, [facility] 10/09/2024 09:35:10 OPV, trivalent 02/28/1996 completed Susan Wilson null, [facility] 10/09/2024 09:35:10 OPV, trivalent 1995 completed Susanstuart Sabae jacquelin, [facility] 10/09/2024 09:35:10 DTP-Hib 11/29/1996 completed Susansae Sabae jacquelin, [facility] 10/09/2024 09:35:10 DTP-Hib 1995 completed Susan Wilson null, [facility] 10/09/2024 09:35:10 DTP-Hib 02/28/1996 completed Susansae Sabae null, [facility] 10/09/2024 09:35:10 DTP-Hib 1995 completed Susan roper, [facility] 10/09/2024 09:35:10 DTaP 09/28/2000 completed Susanstuart roper, [facility] 10/09/2024 09:35:10 Past Encounters Encounter ID Performer Location Encounter Start Date Encounter Closed Date Diagnosis/Indication Diagnosis SNOMED-CT Code Diagnosis ICD10 Code Diagnosis IMO Codes Diagnosis Note [id number] Bunny Hooks DO [facility]) [address] [place] [phone] 01/24/2023 09:44:05 01/24/2023 10:25:35 Hematochezia 200136474 K92.1 Constipation 54914454 K5 9.00 Rheumatoid arthritis 698 72631 M06.9 will likely see ortho after colonoscop y [id number] Bunny Hooks DO [facility]) [address] [place] [address] [phone] 5 02/07/2023 10:39:31 02/07/2023 11:29:00 Rheumatoid arthritis 34357141 M06.9 failed methotrexa te, prednisone ; she would like to see ortho before seeing rheum again Effusion o f joint of left knee 5871757721 10438 M25.462 [id number] Bunny Hooks DO [facility] ([facility]) [address] [place] [address] [id number] 5 03/07/2023 09:53:33 03/07/2023 18:40:55 Proctocolitis 443982387 K51.30 Psoriatic arthritis 1563 11663 L40.50 [id number] Bunny Hooks DO [facility] ([facility]) [address] [place] [address] [id number] 09/05/2024 08:45:42 09/05/2024 13:10:28 Adult health examination 153735361 Z00.00 [id number] LISSETH SETHI [facility] ([facility]) [address] [place] [address] [id number] 5 09/06/2024 14:15:10 09/10/2024 14:49:28 [id number] Jose Rao DO [facility] ([facility]) [address] [place] [address] [id number] 5 10/09/2024 09:12:04 10/14/2024 09:03:13 Family history of diabetes mellitus 745121376 Z83.3 10/09/24- Reviewed and discussed recent lab, reassured her fasting glucose of 90 is good for a nondiabeti c, A1c 5.1, indicating no DM. Pain of knee region 1003 881409 M25.569 10/09/24- left knee, bothering her intermitte nt, consider further imaging if bothering her, to let us know. [id number] Alvaro Angelo MD [facility] ([facility]) [address] [place] [address] [id number] 5 01/24/2025 14:07:35 01/24/2025 15:24:12 Normal in multigravida 3096026467 74628 Z34.80 Gestation period, 6 weeks 73187651 Z3A.01 [id number] Alvaro Angelo MD [facility] ([facility]) [address] [place] [address] [id number] 5 02/12/2025 08:51:50 02/13/2025 12:21:54 [id number] Alvaro Angelo MD [facility] ([facility]) [address] [place] [address] [id number] 5 02/26/2025 09:55:12 02/26/2025 11:12:10 Normal 01125019 Z34.81 9339062 Gestation period, 10 weeks 83961259 Z3A.10 7931349 [id number] Alvaro Angelo MD [facility] ([facility]) [address] [place] [address] [id number] 5 03/26/2025 11:52:52 03/26/2025 13:14:18 Normal 47185537 Z34.81 Gestation period, 14 weeks 36057294 Z3A.14 [id number] Alvaro Angelo MD [facility] ([facility]) [address] [place] [address] [id number] 5 04/18/2025 15:22:00 04/22/2025 14:45:12 Normal 49234602 Z34.81 Spotting p er vagina in 627293824 O26.859 342373 Placenta p revia partialis 52054308 O44.20 [id number] Alvaro Angelo MD [facility] ([facility]) [address] [place] [address] [id number] 5 04/18/2025 16:24:03 04/19/2025 10:34:52 Normal 95493758 Z34.80 [id number] Alvaro Angelo MD [facility] ([facility]) [address] [place] [address] [id number] 5 05/07/2025 12:37:11 05/08/2025 13:45:28 [id number] Alvaro Angelo MD [facility] ([facility]) [address] [place] [address] [id number] 5 05/21/2025 10:36:15 05/21/2025 11:48:01 Normal 02968831 Z34.81 Gestation period, 22 weeks 02097595 Z3A.22 2540844 Low-lying placenta 22777 2006 O44.40 [id number] [id number] Alvaro Angelo MD [facility] ([facility]) [address] [place] [address] [place] [phone] 5 06/18/2025 11:21:56 06/18/2025 12:15:35 Normal [id number] Z34.81 Gestation period, 26 weeks [id number] Z3A.26 [id number] Alvaro Angelo MD [facility] ([facility]) [address] [place] [address] [phone] 5 07/02/2025 08:58:15 07/03/2025 12:00:14 [id number] Alvaro Angelo MD [facility] ([facility]) [address] [place] [address] [phone] 5 07/02/2025 08:58:47 07/04/2025 04:05:41 [id number] Alvaro Angelo MD [facility] ([facility]) [address] [place] [address] [phone] 5 07/02/2025 10:39:30 07/02/2025 11:45:25 Normal 97723002 Z34.83 [id number] Gestation period, 28 weeks 05727304 Z3A.28 [id number] Alvaro Angelo MD [facility] ([facility]) [address] [place] [address] [phone] 5 07/16/2025 10:32:08 07/16/2025 11:40:01 Multigravida 928226953 Z34.83 [id number] Gestation period, 30 weeks 14831913 Z3A.30 [id number] Alvaro Angelo MD [facility] ([facility]) [address] [place] [address] [phone] 5 07/30/2025 10:40:36 07/30/2025 11:28:24 Normal 23085238 Z34.83 Gestation period, 32 weeks 6589622 Z3A.32 3940825 [id number] Alvaro Angelo MD [facility] ([facility]) [address] [place] [address] [phone] 5 08/13/2025 10:44:33 08/13/2025 11:38:15 Normal 36140795 Z34.83 Gestation period, 34 weeks 44760191 Z3A.34 [id number] Alvaro Angelo MD [facility] ([facility]) [address] [place] [address] 5 08/27/2025 10:35:57 08/27/2025 11:34:41 Normal 11569221 Z34.83 Gestation period, 36 weeks 56607893 Z3A.36 [id number] Alvaro Angelo MD [facility] ([facility]) [address] [place] [address] 5 09/03/2025 10:32:59 09/03/2025 11:48:15 Multigravida 653267438 Z34.83 [id number] Gestation period, 37 weeks 78432429 Z3A.37 [id number] Giovani Yu MD [facility] ([facility]) [address] [place] [address] 5 09/06/2025 07:58:00 09/11/2025 03:58:55 Adult health examination 534678207 Z00.00 [id number] LISSETH SETHI [facility] ([facility]) [address] [place] [address] 5 09/06/2025 07:58:35 09/11/2025 03:58:55 Physical examination 4779288 Z00.00 580023 [id number] Alvaro Angelo MD [facility] ([facility]) [address] [place] [address] 5 09/10/2025 13:45:56 09/10/2025 14:47:57 Multigravida 512745838 Z34.83 [id number] Gestation period, 38 weeks 12868566 Z3A.38 [id number] Alvaro Angelo MD [facility] ([facility]) [address] [place] [address] 5 09/17/2025 10:35:44 09/17/2025 11:14:06 Normal in multigravida 8253659113 77181 Z34.80 27005074 Gestation period, 39 weeks 46559289 Z3A.39 0728885 [id number] Alvaro Angelo MD [facility] ([facility]) [address] [place] [address] 09/24/2025 10:36:35 09/24/2025 11:31:14 Normal 47753796 Z34.83 80222255 Gestation period, 40 weeks 17110032 Z3A.40 [id number] Alvaro Angelo MD [facility] ([facility]) [address] [place] [address] 09/25/2025 14:03:38 09/28/2025 18:00:37 Normal 35260709 Z34.83 Gestation period, 40 weeks 25735580 Z3A.40 [id number] Health Concerns Section Related Observation LastModified by Organization Detai ls LastModified Time None Recorded Concern Status LastModified by Organization Details LastModified Time None Recorded Advance Directives Directive None Recorded Payers Insurance Date Sequence Insurance Name Policy Number Policy Fierro Covered Member ID Fierro Member ID Guarantor Name 10/22/2024 2 *SELF PAY* Chrissie Zimmerman 09/23/2025 1 [place] [id number] Jeffy Reyes Erasmo [id number] Jeffy Reyes Erasmo 09/05/2024 1 [employer] (EPO) [id number] Jeffy Eric Froylan [id number] Jeffy Eric Erasmo 01/24/2023 1 [place] [id number] Jeffy Eric Froylan [id number] Jeffy Reyes Erasmo 01/24/2023 1 *SELF PAY* Chrissie Zimmerman Notes [...] chest congestion, sore throat Alvaro Angelo MD [address] [place] [address], [phone], [facility] 09/10/2025 14:40:52 5 text/html jr ob routineReported by PatientHPIFor [...] noted in the HPI Alvaro Angelo MD [address] [place] [address], [phone], [facility] 09/17/2025 11:13:41 5 text/html jr ob routineReported by PatientHPIFor [...] noted in the HPI Alvaro Angelo MD [address] [place] [address], [phone], [facility] 09/24/2025 11:31:04 5 text/html jr ob routineReported [...] if water is broke Alvaro Angelo MD [address] [place] [address], [phone], [facility] 09/28/2025 05:38:08 OBGyn Episode Ob Episode Information Episode Created Date Number of Fetuses Patient Bloodtype Patient rh Status Prepregnancy Weight lbs Domestic Partner Domestic Partner Phone Father Name Pediatric Physical Therapy Assistant Status 01/25/20 1 O Positive Damián OPEN [...] Resolution Snomed Code Not e Normal 02/25/2025 [id number] Merrill Calculation Initial Merrill Date Initial Exam [...] Weight in lbs Pre/Post Dialysis Refused Weight 227.319554385187 BP Diastolic BP Location Tested BP Systolic [...] Weight in lbs Pre/Post Dialysis Refused Weight 221.090367841314 BP Diastolic BP Location Tested BP Systolic [...] Weight in lbs Pre/Post Dialysis Refused Weight 221.842456130343 BP Diastolic BP Location Tested BP Systolic [...] Weight in lbs Pre/Post Dialysis Refused Weight 225.626251133324 BP Diastolic BP Location Tested BP Systolic [...] Weight in lbs Pre/Post Dialysis Refused Weight 230.557263685096 BP Diastolic BP Location Tested BP Systolic BP Type 62 L arm 106 Fetus Heart Rate Present A 148 Present Fetus Movement A Yes Comments heartburn Flowsheet Date 06/18/2025 Sierra Score Blood Edema Fundus Height Fundus Units Glucose Ketones Leukocytes Nitrite Labor Signs Protein Cervic Dilation Cervic Effacement Cervic Station Type Weight in lbs Pre/Post Dialysis Refused Weight 229.4427669940 BP Diastolic BP Location Tested BP Systolic [...] Weight in lbs Pre/Post Dialysis Refused Weight 234.946307010588 BP Diastolic BP Location Tested BP Systolic [...] Weight in lbs Pre/Post Dialysis Refused Weight 232.393239940411 BP Diastolic BP Location Tested BP Systolic [...] Weight in lbs Pre/Post Dialysis Refused Weight 236.550398146536 BP Diastolic BP Location Tested BP Systolic BP Type 76 120 Fetus Heart Rate Present A 144 Present Fetus Movement A Yes Comments mild swelling, heartburn int ermittent Flowsheet Date 08/13/2025 Sierra Score Blood Edema Fundus Height Fundus Units Glucose Ketones Leukocytes Nitrite Labor Signs Protein Cervic Dilation Cervic Effacement Cervic Station 34 cm none trace Merrill Mata neg Type Weight in lbs Pre/Post Dialysis Refused Weight 239.704289576424 BP Diastolic BP Location Tested BP Systolic [...] Weight in lbs Pre/Post Dialysis Refused Weight 241.159846820142 BP Diastolic BP Location Tested BP Systolic [...] Cervic Effacement Cervic Station none none Negative Merrill Mata neg 2cm 70% -3 Type Weight in lbs Pre/Post Dialysis Refused Weight 241.295492351368 BP Diastolic BP Location Tested BP Systolic [...] Weight in lbs Pre/Post Dialysis Refused Weight 243.707597767471 BP Diastolic BP Location Tested BP Systolic BP Type 70 120 Fetus Heart Rate Present Fetus Movement Comments Flowsheet Date 09/10/2025 Sierra Score Blood Edema Fundus Height Fundus Units Glucose Ketones Leukocytes Nitrite Labor Signs Protein Cervic Dilation Cervic Effacement Cervic Station none trace Negative Merrill Mata neg 2cm 70% -3 Type Weight in lbs Pre/Post Dialysis Refused Weight 243.719759529684 BP Diastolic BP Location Tested BP Systolic [...] Weight in lbs Pre/Post Dialysis Refused Weight 242.141259874173 BP Diastolic BP Location Tested BP Systolic BP Type 70 122 Fetus Heart Rate Present A 164 Present Fetus Movement A Yes Comments low back pain, vaginal press ure, swelling in hands/feet Flowsheet Date 09/24/2025 Sierra Score Blood Edema Fundus Height Fundus Units Glucose Ketones Leukocytes Nitrite Labor Signs Protein Cervic Dilation Cervic Effacement Cervic Station none 1+ Negative Merrill Mata trace 3cm 70% -4 Type Weight in lbs Pre/Post Dialysis Refused Weight 244.875993852034 BP Diastolic BP Location Tested BP Systolic [...] Weight in lbs Pre/Post Dialysis Refused Weight 248.849634182084 BP Diastolic BP Location Tested BP Systolic [...] Estim ated Date of Delivery false Thalassemia (Chinese, Armenian, Mediterranean, Or Background): MCV < 80 false Neural Tube Defect (Meningomyelocele, Spina Bifi da, Or Anencephaly) false Congenital Heart Defect false Down Syndrome false Maco-Sachs (eg, Confucianist, Cajun, Chinese-Citizen Of [place]) f alse Dustin Disease false Sickle Cell [...] Domestic Partner Domestic Partner Phone Father Name Pediatric Physical Therapy Assistant Status 01/25/20 25 1 CLOSED Fetus Data [...]
--- OUTSIDE RECORDS SUMMARY | 2025-09-30 23:40 | XMS_ITS | Continuity of Care Document ---
Author Organization [facility] Fabio Myers [facility] [place], [place], [facility] ([facility]) Address [address] [place] [address] Assessment No assessment recorded. Plan of Treatment [...] ETE color YELLOW yellow normal Not Available [facility] [address] [place], [address], 02/27/2025 22:28:50 02/27/20 25 02/27/2025 URINA LYSIS , COMPL ETE appearance CLEAR clear normal Not Available [facility] [address] [place], [address], 02/27/2025 22:28:50 02/27/20 25 02/27/2025 URINA LYSIS , COMPL ETE specific gravity 1.012 1.001- 1.035 normal Not Available [facility] [address] [place], [address], 02/27/2025 22:28:50 02/27/20 25 02/27/2025 URINA LYSIS , COMPL ETE pH 7.5 5.0-8. 0 normal Not Available [address], [address], 02/27/2025 22:28:50 02/27/20 25 02/27/2025 URINA LYSIS , COMPL ETE glucose NEGATI VE negati ve normal Not Available [address], [address], 02/27/2025 22:28:50 02/27/20 25 02/27/2025 URINA LYSIS , COMPL ETE bilirubin NEGATI VE negati ve normal Not Available [address], [address], 02/27/2025 22:28:50 02/27/20 25 02/27/2025 URINA LYSIS , COMPL ETE ketones NEGATI VE negati ve normal Not Available [address], [address], 02/27/2025 22:28:50 02/27/20 25 02/27/2025 URINA LYSIS , COMPL ETE occult blood NEGATI VE negati ve normal Not Available [facility] [address], [address], 02/27/2025 22:28:50 02/27/20 25 02/27/2025 URINA LYSIS , COMPL ETE protein NEGATI VE negati ve normal Not Available [facility] [address], [address], 02/27/2025 22:28:50 02/27/20 25 02/27/2025 URINA LYSIS , COMPL ETE nitrite NEGATI VE negati ve normal Not Available [facility] [address], [address], 02/27/2025 22:28:50 02/27/20 25 02/27/2025 URINA LYSIS , COMPL ETE leukocyte esterase TRACE negati ve abnormal Not Available [address], [address], 02/27/2025 22:28:50 02/27/20 25 02/27/2025 URINA LYSIS , COMPL ETE WBC NONE SEEN /hpf < or = 5 normal Not Available [address], [address], 02/27/2025 22:28:50 02/27/20 25 02/27/2025 URINA LYSIS , COMPL ETE RBC NONE SEEN /hpf < or = 2 normal Not Available [address], [address], 02/27/2025 22:28:50 02/27/20 25 02/27/2025 URINA LYSIS , COMPL ETE squamous epithelial cells 6-10 /hpf < or = 5 abnormal Not Available [address], [address], 02/27/2025 22:28:50 02/27/20 25 02/27/2025 URINA LYSIS , COMPL ETE bacteria NONE SEEN /hpf none seen normal Not Available [address], [address], 02/27/2025 22:28:50 02/27/20 25 02/27/2025 URINA LYSIS , COMPL ETE hyaline cast NONE SEEN /lpf none seen normal Not Available [address], [address], 02/27/2025 22:28:50 02/27/20 25 02/27/2025 URINA LYSIS , COMPL ETE note This urine was jim zed for the prese nce of WBC, RBC, bacte terry, casts , and other forme d eleme nts. Only those eleme nts seen were repor bruce. Not Available [address], [address], 02/27/2025 22:28:50 02/27/20 25 02/27/2025 CBC (INCL UDES DIFF/ PLT) white blood cell count 8.9 thous and/u L 3.8-10 .8 normal Not Available [address], [address], 02/27/2025 22:28:51 02/27/20 25 02/27/2025 CBC (INCL UDES DIFF/ PLT) red blood cell count 4.42 erick on/uL 3.80-5 .10 normal Not Available [address], [address], 02/27/2025 22:28:51 02/27/20 25 02/27/2025 CBC (INCL UDES DIFF/ PLT) hemoglobin 13.2 g/dL 11.7-1 5.5 normal Not Available [address], [address], 02/27/2025 22:28:51 02/27/20 25 02/27/2025 CBC (INCL UDES DIFF/ PLT) hematocrit 41.4 % 35.0-4 5.0 normal Not Available [address], [address], 02/27/2025 22:28:51 02/27/20 25 02/27/2025 CBC (INCL UDES DIFF/ PLT) MCV 93.7 fL 80.0-1 00.0 normal Not Available [address], [address], 02/27/2025 22:28:51 02/27/20 25 02/27/2025 CBC (INCL UDES DIFF/ PLT) MCH 29.9 pg 27.0-3 3.0 normal Not Available [facility] [address], [address], 02/27/2025 22:28:51 02/27/20 25 02/27/2025 CBC (INCL [...] rajiv condi tion. Not Available [facility] [address], [address], 02/27/2025 22:28:51 02/27/20 25 02/27/2025 CBC (INCL UDES DIFF/ PLT) RDW 12.5 % 11.0-1 5.0 normal Not Available [facility] [address], [address], 02/27/2025 22:28:51 02/27/20 25 02/27/2025 CBC (INCL UDES DIFF/ PLT) platelet count 294 thous and/u L 140-40 0 normal Not Available [facility] [address], [address], 02/27/2025 22:28:51 02/27/20 25 02/27/2025 CBC (INCL UDES DIFF/ PLT) MPV 11.6 fL 7.5-12 .5 normal Not Available [facility] [address], [address], 02/27/2025 22:28:51 02/27/20 25 02/27/2025 CBC (INCL UDES DIFF/ PLT) absolute neutrophils 6408 cells /uL 1500-7 800 normal Not Available [facility] [address], [address], 02/27/2025 22:28:51 02/27/20 25 02/27/2025 CBC (INCL UDES DIFF/ PLT) absolute lymphocytes 1833 cells /uL 850-39 00 normal Not Available [address], [address], 02/27/2025 22:28:51 02/27/20 25 02/27/2025 CBC (INCL UDES DIFF/ PLT) absolute monocytes 481 cells /uL 200-95 0 normal Not Available [address], [address], 02/27/2025 22:28:51 02/27/20 25 02/27/2025 CBC (INCL UDES DIFF/ PLT) absolute eosinophils 151 cells /uL 15-500 normal Not Available [address], [address], 02/27/2025 22:28:51 02/27/20 25 02/27/2025 CBC (INCL UDES DIFF/ PLT) absolute basophils 27 cells /uL 0-200 normal Not Available [address], [address], 02/27/2025 22:28:51 02/27/20 25 02/27/2025 CBC (INCL UDES DIFF/ PLT) neutrophils 72 % normal Not Available [address], [address], 02/27/2025 22:28:51 02/27/20 25 02/27/2025 CBC (INCL UDES DIFF/ PLT) lymphocytes 20.6 % normal Not Available [address], [address], 02/27/2025 22:28:51 02/27/20 25 02/27/2025 CBC (INCL UDES DIFF/ PLT) monocytes 5.4 % normal Not Available [address], [address], 02/27/2025 22:28:51 02/27/20 25 02/27/2025 CBC (INCL UDES DIFF/ PLT) eosinophils 1.7 % normal Not Available [address] [address] [place], [address], 02/27/2025 22:28:51 02/27/20 25 02/27/2025 CBC (INCL UDES DIFF/ PLT) basophils 0.3 % normal Not Available [facility] [address] [place], [address], 02/27/2025 22:28:51 02/27/20 25 02/27/2025 HEPAT ITIS B SURFA CE ANTIG EN W/REF L CONFI RM hepatitis B surface antigen NON-RE ACTIVE non-re active normal For addit ional infor amy raphael, sabrina e refer to http: //[facility] raphael.que stdia gnost ics.c om/fa q/FAQ 202 (This link is being provi ded for infor matio nal/ educa jhonathan l purpo ses only. ) Not Available [facility] [address], [address], 02/27/2025 22:28:52 02/27/20 25 02/27/2025 HEPAT ITIS [...] a test for HCV RNA (test code 63025 ) is sugge sted. For addit ional infor amy raphael pleas e refer to http: //[facility] n.que stdia gnost ics.c om/fa q/FAQ 22v1 (This link is being provi ded for infor matio nal/ educa jhonathan l purpo ses only. ) Not Available [facility] [address] [address] [place], [address], 02/27/2025 22:28:53 02/27/20 25 02/27/2025 RUBEL LA [...] with rubel la virus . Not Available [facility] [address] [address], [place], [address], 02/27/2025 22:28:53 02/27/2002/27/2025 HIV 1/2 ANTIG EN/AN [...] less than 2 years old. Not Available [address] [address] [place], [address], 02/27/2025 22:28:54 02/27/20 25 02/27/2025 RPR (DX) W/REF L TITER AND T. PALLI DUM AB, IA RPR (DX) w/refl titer and confirmatory testing NON-RE ACTIVE non-re active normal No labor atory evide nce of syphi lis. If recen t expos ure is suspe cted, submi t a new sampl e in 2-4 weeks . Not Available [facility] [address] [place], [address], 02/27/2025 22:28:55 02/27/20 25 02/27/2025 ANTIB MAICOL [...] mmuni zed pregn benjamin. Not Available [address] [place], [address], 02/27/2025 22:28:56 02/27/20 25 02/27/2025 ABO GROUP AND RH TYPE ABO group O Not Available [facility] [address] [address] [place], [address], 02/27/2025 22:28:57 02/27/20 25 02/27/2025 ABO GROUP AND RH TYPE Rh type RH(D) POSITI VE For addit ional infor sabrina roth e refer to http: //[facility] hayley lesterQue stDia gnost ics.c om/fa q/FAQ 111 (This link is being provi ded for infor amy trujillo/ educcatracho ring l purpo ses only. ) Not Available [facility] [address] [address] [address], [place], [address], 02/27/2025 22:28:57 02/27/20 25 02/27/2025 DRUG MONIT OR, PANEL 1, SCREE N, URINE amphetamines NEGATI VE NG/mL <500 See Note A See Note A Not Available [facility] [address] [address] [address], [place], [address], 02/27/2025 22:28:58 02/27/20 25 02/27/2025 DRUG MONIT OR, PANEL 1, SCREE N, URINE barbiturates NEGATI VE NG/mL <300 See Note A See Note A Not Available [facility] [address] [address] [address], [place], [address], 02/27/2025 22:28:58 02/27/20 25 02/27/2025 DRUG MONIT OR, PANEL 1, SCREE N, URINE benzodiazepi duane NEGATI VE NG/mL <100 See Note A See Note A Not Available [facility] [address] [address] [address], [place], [address], 02/27/2025 22:28:58 02/27/2002/27/2025 DRUG MONIT OR, PANEL 1, SCREE N, URINE cocaine metabolite NEGATI VE NG/mL <150 See Note A See Note A Not Available [facility] [address] [address] [address], [place], [address], 02/27/2025 22:28:58 02/27/20 25 02/27/2025 DRUG MONIT OR, PANEL 1, SCREE N, URINE marijuana metabolite NEGATI VE NG/mL <20 See Note A See Note A Not Available [facility] [address] [address] [address], [place], [address], 02/27/2025 22:28:58 02/27/20 25 02/27/2025 DRUG MONIT OR, PANEL 1, SCREE N, URINE methadone metabolite NEGATI VE NG/mL <100 See Note A See Note A Not Available [facility] [address] [address] [address], [place], [address], 02/27/2025 22:28:58 02/27/20 25 02/27/2025 DRUG MONIT OR, PANEL 1, SCREE N, URINE opiates NEGATI VE NG/mL <100 See Note A See Note A Not Available [address] [address] [address], [place], [address], 02/27/2025 22:28:58 02/27/20 25 02/27/2025 DRUG MONIT OR, PANEL 1, SCREE N, URINE oxycodone NEGATI VE NG/mL <100 See Note A See Note A Not Available [address] [address] [address], [place], [address], 02/27/2025 22:28:58 02/27/20 25 02/27/2025 DRUG MONIT OR, PANEL 1, SCREE N, URINE phencyclidin e NEGATI VE NG/mL <25 See Note A See Note A Not Available [address] [address] [address], [place], [address], 02/27/2025 22:28:58 02/27/20 25 02/27/2025 DRUG MONIT OR, PANEL 1, SCREE N, URINE creatinine 108.1 mg/dL > or = 20.0 Not Available [address] [address] [address], [place], [address], 02/27/2025 22:28:58 02/27/20 25 02/27/2025 DRUG MONIT OR, PANEL 1, SCREE N, URINE pH 7.7 4.5-9. 0 Not Available [address] [address] [address], [place], [address], 02/27/2025 22:28:58 02/27/20 25 02/27/2025 DRUG MONIT OR, PANEL 1, SCREE N, URINE oxidant NEGATI VE mcg/m L <200 Not Available [address] [address] [address], [place], [address], 02/27/2025 22:28:58 02/27/20 25 02/27/2025 DRUG MONIT [...] M-F, 8am to 10pm EST Not Available [address] [address] [place], [address], 02/27/2025 22:28:59 02/27/2002/27/2025 CULTU RE, URINE , ROUTI NE culture, urine, routine SEE NOTE CULTU RE, URINE , ROUTI NE Micro Numbe r: [id number] Test Statu s: Final Speci men Sourc e: Urine Speci men Quali ty: Adequ ate Resul t: No Growt h Not Available [address] [address] [place], [address], 02/27/2025 22:28:59 02/27/2003/08/2025 THINP REP TIS PAP (REFL ) HPV MRNA E6/E7 clinical information: normal Pregn ant Not Available [facility] [address] [address] [place], [address], 03/08/2025 08:16:51 02/27/2003/08/2025 THINP REP TIS PAP (REFL ) HPV MRNA E6/E7 LMP: normal NONE GIVEN Not Available [facility] [address] [address] [place], [address], 03/08/2025 08:16:51 02/27/20 25 03/08/2025 THINP REP TIS PAP (REFL ) HPV MRNA E6/E7 prev. Pap: normal NONE GIVEN Not Available [address], [address], 03/08/2025 08:16:51 02/27/2003/08/2025 THINP REP TIS PAP (REFL ) HPV MRNA E6/E7 prev. BX: normal NONE GIVEN Not Available [address] [place], [address], 03/08/2025 08:16:51 02/27/2003/08/2025 THINP REP TIS PAP (REFL ) HPV MRNA E6/E7 source: normal Cervi x, Endoc ervix Not Available [address], [address], 03/08/2025 08:16:51 02/27/2003/08/2025 THINP REP TIS PAP (REFL ) HPV MRNA E6/E7 statement of adequacy: normal Satis facto ry for evalu ation . Endoc ervic al/tr ansfo rmati on zone compo nent prese nt. Not Available [address], [address], 03/08/2025 08:16:51 02/27/2003/08/2025 THINP REP TIS PAP (REFL ) HPV MRNA E6/E7 general categorizati on: abnormal Cytol ogy Resul ts: Epith elial Cell Abnor malit y Not Available [address], [address], 03/08/2025 08:16:51 02/27/2003/08/2025 THINP REP TIS PAP (REFL ) HPV MRNA E6/E7 interpretati on/result: abnormal Low Grade Squam ous Intra epith elial Lesio n (LSIL ) Not Available [address] [place], [address], 03/08/2025 08:16:51 02/27/20 25 03/08/2025 THINP REP TIS PAP (REFL ) HPV MRNA E6/E7 comment: normal This Pap test has been evalu ated with sherice mayen techn ology . Sugge st clini rajiv corre latio n and follo w-up as clini solomon appro priat e Not Available [address] [address] [place], [address], 03/08/2025 08:16:51 02/27/20 25 03/08/2025 THINP REP TIS PAP (REFL ) HPV MRNA E6/E7 cytotechnolo gist: normal KMS, CT( CP) CT Scree pat locat ion: [address] [place] [address] Not Available [address] [address] [place], [address], 03/08/2025 08:16:51 02/27/20 25 03/08/2025 THINP REP TIS PAP (REFL ) HPV MRNA E6/E7 pathologist: normal Alisha monique M.D., Board Certi fied in [place] Patho logy and Cytop athol ogy. Phone : [phone] (elec troni c signa ture) Patho logis t Relea se Date/ Time: 03/06 09:25 AM Not Available [address] [address] [place], [address], 03/08/2025 08:16:51 02/27/20 25 03/08/2025 THINP REP [...] clini rajiv infor amy raphael. Not Available [address] [address] [place], [address], 03/08/2025 08:16:51 02/27/20 25 03/08/2025 HPV MRNA [...] sabrina roth e refer to http: //[facility] hay[facility] raphael.patience stdia gnost ics.c om/fa q/FAQ 129v1 (This link if provi ded for infor amy raphael/ educa jhonathan l purpo ses only. ) Not Available [address] [address] [place], [address], 03/08/2025 08:16:53 02/27/20 25 02/26/2025 CT + NG + TV, DNA, urine /swab Chlamydia negati ve Not Available [facility] ([facility]) [address] [place] [address], [address], 02/25/2025 18:55:26 02/27/20 25 02/26/2025 CT + NG + TV, DNA, urine /swab Gonorrhea negati ve Not Available [facility] ([facility]) [address] [place] [address], [address], 02/25/2025 18:55:26 02/27/20 25 02/26/2025 CT + NG + TV, DNA, urine /swab Trichomonas negati ve Not Available [facility] ([facility]) [address] [place], [address], 02/25/2025 18:55:26 07/02/20 25 07/02/2025 CBC WBC 11.1 x10 4.0-10 .5 high Not Available [facility] [address] [address], [place], [address], 07/02/2025 10:24:57 07/02/20 25 07/02/2025 CBC RBC 3.96 x10 3.50-5 .50 Not Available [facility] [address] [facility] [address], [place], [address], 07/02/2025 10:24:57 07/02/20 25 07/02/2025 CBC HGB 12.0 g/dL 12.0-1 6.0 Not Available [facility] [address] [facility] [place], [address], 07/02/2025 10:24:57 07/02/20 25 07/02/2025 CBC HCT 37.1 % 37.0-4 7.0 Not Available [facility] [address] [facility], [place], [address], 07/02/2025 10:24:57 07/02/20 25 07/02/2025 CBC MCV 93.8 fL 80.0-9 9.9 Not Available [facility] [address] [facility], [place], [address], 07/02/2025 10:24:57 07/02/20 25 07/02/2025 CBC MCH 30.4 pg 27.0-3 2.0 Not Available [facility] [address] [facility], [place], [address], 07/02/2025 10:24:57 07/02/2007/02/2025 CBC MCHC 32.4 g/dL 32.0-3 6.0 Not Available [facility] [address] [facility], [place], [address], 07/02/2025 10:24:57 07/02/2007/02/2025 CBC RDW 12.9 % 11.5-1 4.5 Not Available [facility] [address] [facility], [place], [address], 07/02/2025 10:24:57 07/02/2007/02/2025 CBC plt 227.7 x10 140.0- 451.0 Not Available [facility] [address] [facility] Qu[facility], [place], [address], 07/02/2025 10:24:57 07/02/2007/02/2025 CBC lymphocytes % 15.5 % 20.0-5 0.0 low Not Available [facility] [address] [facility], [place], [address], 07/02/2025 10:24:57 07/02/2007/02/2025 CBC granulcytes % 78.3 % 30.0-7 0.0 high Not Available [facility] [address] [facility] Qu[facility], [place], [address], 07/02/2025 10:24:57 07/02/2007/02/2025 CBC monocytes % 4.2 % 2.0-16 .0 Not Available [facility] [address] [facility] Qui[facility]ones [facility], [place], [address], 07/02/2025 10:24:57 07/02/2007/02/2025 CBC granulcytes# 8.7 x10 Not Jenny ilable [facility] [address] [facility] [address], [place], [address], 07/02/2025 10:24:57 07/02/20 25 07/02/2025 CBC lymphocytes # 1.7 x10 Not Available [facility] [address] [facility] [address], [place], [address], 07/02/2025 10:24:57 07/02/20 25 07/02/2025 CBC monocytes # 0.5 x10 Not Avai lable [facility] [address] [facility] [address], [place], [address], 07/02/2025 10:24:57 07/02/20 25 07/02/2025 GLUCO SE SCREE N glucose screen 135.0 mg/dL Not Available [facility] [address] [facility] [address], [place], [address], 07/02/2025 10:30:30 02/19/20 25 02/12/2025 US, obste tric, 1st trime ster No observ ation record ed. [email or web address] Not Available 02/19 09:09:34 04/25/20 25 04/18/2025 US, obste tric, follo w-up No observ ation record ed. [email or web address] [facility] [address] [place], [address], 04/29/2025 09:24:34 05/11/20 25 05/07/2025 US, obste tric, 2nd trime ster No observ ation record ed. [facility] [address] [place], [address], 05/13/2025 17:57:21 07/05/20 25 07/02/2025 imagi ng/di agnos tic resul t No observ ation record ed. [facility] [address] [place], [address], 07/09/2025 10:35:54 Result Notes None recorded. Problems Name Problem SNOMED Code Status Onset Date Resolution Date Notes Provider Name and Address Organization Details Recorded Time Rheumatoid arthritis 28433049 Active 2022 KERWIN roper [facility]CRemigio 5 14:16:25 Pain of knee region 1572252465 Completed 202301/24/2025 KERWIN roper [facility]CR[facility] 5 14:16:23 Family history of diabetes mellitus 716558487 Active 2023 KERWIN roper [facility]L.CRemigio 5 14:16:18 Normal 35217816 Active 2024 ROXI Vang [facility] 5 10:22:35 Normal 57701937 Active 2024 ROXI Vang [facility] 5 10:22:35 Placenta previa partialis 46984265 Active 2024 Alvaro Angelo MD [address] [place] [address], [address], [facility], L.L.CRemigio 5 02:46:26 Low-lying placenta 423737055 Active 2024 Alvaro Angelo MD [address] [place] [address], [phone], [facility], L.L.CRemigio 5 11:36:47 Problem Notes None recorded. Procedures Surgical History Date Name Laterality Status Provider Name and Address Organization Details Recorded Time 02/27/20 Date of Last Pap Smear completed KERWIN DUNAWAY [facility] L.L.CRemigio 09/02/2025 18:39:21 02/27/20 25 liquid based cervical cytology screening completed [facility], [place] 09/02/2025 18:39:54 01/31/20 24 colposcopy completed [facility], [place] 01/24/2025 14:17:49 01/31/20 24 hysteroscopy completed [facility], [place] 01/24/2025 14:18:46 arthroscopy of left knee joint completed [facility], [place] 01/24/2025 14:17:01 cholecystectomy completed [facility], [place] 01/24/2025 14:17:33 Imaging Results None recorded. Procedure Notes None recorded. Medical Equipment None Reported. Allergies Allergen ID Allergen Name Allergen Category Reaction Reaction Severity Criticality Documentation Date Start Date Code Code System Note Provider Name and Address Organization Details Recorded Time 96609 Bactrim medicatio n hives moderate Not available 05/21/2023 30636 9 RxNorm [facility] VikiLRemigioCRemigio 5 15:30:03 17801 Product containin g penicilli n (product) medicatio n hives moderate Not available 05/21/2023 05722 8001 SNOMED [facility]ED [facility], LAlisaCRemigio 5 15:30:03 27749 Augmentin medicatio n hives moderate Not available 01/24/2025 77761 2 RxNorm KERWIN [facility], VikiLRemigioCRemigio 5 14:19:18 61472 Celebrex medicatio n other moderate Not available 01/24/2025 42060 7 RxNorm [facility] NEUSCHWAN [facility], VikiLRemigioCRemigio 5 15:30:03 61106 Substance with sulfonami de structure and antibacte rial mechanism of action (substanc e) medicatio n hives moderate Not available 04/18/2025 92152 8003 SNOMED TREBA NEUSCHWAHailey KAVITHA jacquelin, [facility] 5 15:30:03 38985 amoxicill in / clavulana te medicatio n hives Not available high 09/06/20252022 73596 RxNorm Yessy ates PCN and amoxi cilli n fine Not Available anna - External Data Service - prod 5 07:58:34 17770 celecoxib medicatio n Not available Not available high 09/06/20252022 20115 7 RxNorm Not Available anna - External Data Service - prod 5 07:58:34 08591 amoxicill in medicatio n Not available Not available low 09/27/20252023 723 RxNorm Not Available anna - External Data Service - prod 5 13:40:54 22348 clavulani c acid Not available Not available Not available low 09/27/20252023 50111 RxNorm Not Available anna - External Data Service - prod 5 13:40:54 84983 sulfameth oxazole medicatio n Not available Not available Not available 09/27/20252023 32477 RxNorm Not Available anna - External Data Service - prod 5 13:40:54 10158 trimethop rim medicatio n Not available Not available Not available 09/27/20252023 65847 RxNorm Not Available anna - External Data [...] Updated DateTime 5 170.18 cm 36.7 kg/m2 810048. 71 g 18 /min 99 % 94 /min 98.2 [degF] 124/66 mm[Hg] KERWIN DUNAWAY [facility] 11:07:48 Social History Question Answer Notes LastModified by Organizat ion Details LastModified Time Tobacco Smoking Status Former Smoker [facility] LRem[facility]ioLKeely 01/24/2023 10:09:31 Are You Blind Or Do You Have Difficulty Seeing? No Information not available 01/24/2025 Are You Deaf Or Do You Have Serious Difficulty Hearing? No [email or web address] Information not available 01/24/2023 When Did You Quit Smoking? 1-5yearssinc elastcigaret te Information not available 01/24/2023 Do You Work In Healthcare? No Information not available 01/24/2025 What Was The Date Of Your Most Recent Tobacco Screening? 03/26/2025 [email or web address] Information not available 03/26/2025 What Is Your Relationship Status? Information not available 01/24/2025 Have You Recently Traveled Abroad? No [email or web address] Information not available 01/24/2023 Do You Have [...] independently without assistance or assistive devices? YESWOREST [email or web address] Information not available 01/24/2023 Do you have difficulty doing errands alone? No Information not available 01/24/2023 Are you able to care for yourself independently? 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 No [id number] Information not available 01/24/2023 Do you or have you ever used e-cigarettes or vape? Former user of electronic cigarettes Information not available 01/24/2025 Mental Status Question Answer Note LastModified by Organization D etails LastModified Time Do you have difficulty concentrating, remembering or making decisions? No [id number] Information no t available 01/24/2023 Family History [...] Hypothyroidism N Lung Disease N COPD N Developmental or Behavioral Disorders N Defects [...] Recorded Time IPV 09/28/2000 completed Susan roper [facility] 10/09/2024 09:35:10 MMR 04/11/1996 completed Susan roper [facility] 10/09/2024 09:35:10 MMR 09/28/2000 completed Susan Wilson null, [facility] 10/09/2024 09:35:10 Tdap 11/17/2010 completed Susan Wilson null, [facility] 10/09/2024 09:35:10 Tdap 02/20/2015 completed Susan Wilson null, [facility] 10/09/2024 09:35:10 Hep B, unspecified formulation 1995 completed Susan Wilson null, [facility] 10/09/2024 09:35:10 Hep B, unspecified formulation 02/28/1996 completed Susan Wilson null, [facility] 10/09/2024 09:35:10 Hep B, unspecified formulation 1995 completed Susan Wilson null, [facility] 10/09/2024 09:35:10 OPV, trivalent 1995 completed Susan Wilson null, [facility] 10/09/2024 09:35:10 OPV, trivalent 02/28/1996 completed Susan Wilson null, [facility] 10/09/2024 09:35:10 OPV, trivalent 1995 completed Susan Wilson null, [facility] 10/09/2024 09:35:10 DTP-Hib 11/29/1996 completed Susan Wilson null, [facility] 10/09/2024 09:35:10 DTP-Hib 1995 completed Susan Wilson null, [facility] 10/09/2024 09:35:10 DTP-Hib 02/28/1996 completed Susan Wilson null, [facility] 10/09/2024 09:35:10 DTP-Hib 1995 completed Susan Wilson null, [facility] 10/09/2024 09:35:10 DTaP 09/28/2000 completed Susan Wilson null, [facility] 10/09/2024 09:35:10 Past Encounters Encounter ID Performer Location Encounter Start Date Encounter Closed Date Diagnosis/Indication Diagnosis SNOMED-CT Code Diagnosis ICD10 Code Diagnosis IMO Codes Diagnosis Note [id number] Alvaro Angelo MD [facility] ([facility]) [address] [place] [address] [phone] 06/18/2025 11:21:56 06/18/2025 12:15:35 Normal 58583155 Z34.81 Gestation period, 26 weeks 91749026 Z3A.26 [id number] Alvaro Angelo MD [facility]) [address] [place] [address] [phone] 07/02/2025 08:58:15 07/03/2025 12:00:14 [id number] Alvaro Angelo MD [facility]) [address] [place] [address] [phone] 07/02/2025 08:58:47 07/04/2025 04:05:41 [id number] Alvaro Angelo MD [facility]) [address] [place] [address] [phone] 5 07/02/2025 10:39:30 07/02/2025 11:45:25 Normal 81482604 Z34.83 [id number] Gestation period, 28 weeks 34389140 Z3A.28 [id number] Health Concerns Section Related Observation LastModified by Organization Detai ls LastModified Time None Recorded Concern Status LastModified by Organization Details LastModified Time None Recorded Payers Encounter Date Sequence Insurance Name Policy Number Policy Fierro Covered Member ID Fierro Member ID Guarantor Name 07/02/2025 1 [place] [id number] Jeffy Zimmerman [id number] Jeffy Zimmerman Notes Date Note Type [...] noted in the HPI Alvaro Angelo MD [address] [place] [address], [phone], [facility] 07/02/2025 11:42:06 OBGyn Episode Ob Episode Information Episode Created Date Number of Fetuses Patient Bloodtype Patient rh Status Prepregnancy Weight lbs Domestic Partner Domestic Partner Phone Father Name Ms Sql Dba Status 01/25/20 1 O Positive Damián OPEN [...] Resolution Snomed Code Not e Normal 02/25/2025 [id number] Merrill Calculation Initial Merrill Date Initial Exam [...] Weight in lbs Pre/Post Dialysis Refused Weight 227.853486607489 BP Diastolic BP Location Tested BP Systolic [...] Weight in lbs Pre/Post Dialysis Refused Weight 221.459599059910 BP Diastolic BP Location Tested BP Systolic [...] Weight in lbs Pre/Post Dialysis Refused Weight 221.060315818810 BP Diastolic BP Location Tested BP Systolic [...] Weight in lbs Pre/Post Dialysis Refused Weight 225.189944917807 BP Diastolic BP Location Tested BP Systolic [...] Weight in lbs Pre/Post Dialysis Refused Weight 230.899461553194 BP Diastolic BP Location Tested BP Systolic BP Type 62 L arm 106 Fetus Heart Rate Present A 148 Present Fetus Movement A Yes Comments heartburn Flowsheet Date 06/18/2025 Sierra Score Blood Edema Fundus Height Fundus Units Glucose Ketones Leukocytes Nitrite Labor Signs Protein Cervic Dilation Cervic Effacement Cervic Station Type Weight in lbs Pre/Post Dialysis Refused Weight 229.9692068200 BP Diastolic BP Location Tested BP Systolic [...] Weight in lbs Pre/Post Dialysis Refused Weight 234.230426414611 BP Diastolic BP Location Tested BP Systolic [...] Weight in lbs Pre/Post Dialysis Refused Weight 232.423568206516 BP Diastolic BP Location Tested BP Systolic [...] Weight in lbs Pre/Post Dialysis Refused Weight 236.311345492904 BP Diastolic BP Location Tested BP Systolic BP Type 76 120 Fetus Heart Rate Present A 144 Present Fetus Movement A Yes Comments mild swelling, heartburn int ermittent Flowsheet Date 08/13/2025 Sierra Score Blood Edema Fundus Height Fundus Units Glucose Ketones Leukocytes Nitrite Labor Signs Protein Cervic Dilation Cervic Effacement Cervic Station 34 cm none trace [place] neg Type Weight in lbs Pre/Post Dialysis Refused Weight 239.749973671830 BP Diastolic BP Location Tested BP Systolic [...] Weight in lbs Pre/Post Dialysis Refused Weight 241.569813471651 BP Diastolic BP Location Tested BP Systolic [...] Cervic Effacement Cervic Station none none Negative [place] neg 2cm 70% -3 Type Weight in lbs Pre/Post Dialysis Refused Weight 241.413115084077 BP Diastolic BP Location Tested BP Systolic [...] Weight in lbs Pre/Post Dialysis Refused Weight 243.167498150253 BP Diastolic BP Location Tested BP Systolic BP Type 70 120 Fetus Heart Rate Present Fetus Movement Comments Flowsheet Date 09/10/2025 Sierra Score Blood Edema Fundus Height Fundus Units Glucose Ketones Leukocytes Nitrite Labor Signs Protein Cervic Dilation Cervic Effacement Cervic Station none trace Negative [place] neg 2cm 70% -3 Type Weight in lbs Pre/Post Dialysis Refused Weight 243.549868905424 BP Diastolic BP Location Tested BP Systolic [...] Weight in lbs Pre/Post Dialysis Refused Weight 242.386393996542 BP Diastolic BP Location Tested BP Systolic [...] Weight in lbs Pre/Post Dialysis Refused Weight 244.323850035708 BP Diastolic BP Location Tested BP Systolic [...] Weight in lbs Pre/Post Dialysis Refused Weight 248.706172208096 BP Diastolic BP Location Tested BP Systolic [...] Estim ated Date of Delivery false Thalassemia (Slovak, Frisian, Mediterranean, Or Background): MCV < 80 false Neural Tube Defect (Meningomyelocele, Spina Bifi da, Or Anencephaly) false Congenital Heart Defect false Down Syndrome false Maco-Sachs (eg, Rastafarian, Cajun, Indian-[place]) f alse Dustin Disease false Sickle Cell Disease Or Trait () false Hemophilia Or Other Blood Disorders false Muscular Dystrophy false Cystic Fibrosis false Bluebell's Chorea false Intellectual Disability/Autism false If Yes, [...]
--- OUTSIDE RECORDS SUMMARY | 2025-09-30 23:41 | XMS_ITS | Continuity of Care Document ---
Author Organization [facility] Fabio Myers [facility] [place], [place], [facility] [place] ([facility]) Address [address] [place] [address] Assessment No assessment recorded. Plan of Treatment [...] ETE color YELLOW yellow normal Not Available [facility] [address] [place], [address], 02/27/2025 22:28:50 02/27/20 25 02/27/2025 URINA LYSIS , COMPL ETE appearance CLEAR clear normal Not Available [facility] [address] [place], [address], 02/27/2025 22:28:50 02/27/20 25 02/27/2025 URINA LYSIS , COMPL ETE specific gravity 1.012 1.001- 1.035 normal Not Available [facility] [address] [place], [address], 02/27/2025 22:28:50 02/27/20 25 02/27/2025 URINA LYSIS , COMPL ETE pH 7.5 5.0-8. 0 normal Not Available [address], [address], 02/27/2025 22:28:50 02/27/20 25 02/27/2025 URINA LYSIS , COMPL ETE glucose NEGATI VE negati ve normal Not Available [address], [address], 02/27/2025 22:28:50 02/27/20 25 02/27/2025 URINA LYSIS , COMPL ETE bilirubin NEGATI VE negati ve normal Not Available [address], [address], 02/27/2025 22:28:50 02/27/20 25 02/27/2025 URINA LYSIS , COMPL ETE ketones NEGATI VE negati ve normal Not Available [address], [address], 02/27/2025 22:28:50 02/27/20 25 02/27/2025 URINA LYSIS , COMPL ETE occult blood NEGATI VE negati ve normal Not Available [facility] [address], [address], 02/27/2025 22:28:50 02/27/20 25 02/27/2025 URINA LYSIS , COMPL ETE protein NEGATI VE negati ve normal Not Available [facility] [address], [address], 02/27/2025 22:28:50 02/27/20 25 02/27/2025 URINA LYSIS , COMPL ETE nitrite NEGATI VE negati ve normal Not Available [facility] [address], [address], 02/27/2025 22:28:50 02/27/20 25 02/27/2025 URINA LYSIS , COMPL ETE leukocyte esterase TRACE negati ve abnormal Not Available [address], [address], 02/27/2025 22:28:50 02/27/20 25 02/27/2025 URINA LYSIS , COMPL ETE WBC NONE SEEN /hpf < or = 5 normal Not Available [address], [address], 02/27/2025 22:28:50 02/27/20 25 02/27/2025 URINA LYSIS , COMPL ETE RBC NONE SEEN /hpf < or = 2 normal Not Available [address], [address], 02/27/2025 22:28:50 02/27/20 25 02/27/2025 URINA LYSIS , COMPL ETE squamous epithelial cells 6-10 /hpf < or = 5 abnormal Not Available [address], [address], 02/27/2025 22:28:50 02/27/20 25 02/27/2025 URINA LYSIS , COMPL ETE bacteria NONE SEEN /hpf none seen normal Not Available [address], [address], 02/27/2025 22:28:50 02/27/20 25 02/27/2025 URINA LYSIS , COMPL ETE hyaline cast NONE SEEN /lpf none seen normal Not Available [address], [address], 02/27/2025 22:28:50 02/27/20 25 02/27/2025 URINA LYSIS , COMPL ETE note This urine was jim zed for the prese nce of WBC, RBC, bacte terry, casts , and other forme d eleme nts. Only those eleme nts seen were repor bruce. Not Available [address], [address], 02/27/2025 22:28:50 02/27/20 25 02/27/2025 CBC (INCL UDES DIFF/ PLT) white blood cell count 8.9 thous and/u L 3.8-10 .8 normal Not Available [address], [address], 02/27/2025 22:28:51 02/27/20 25 02/27/2025 CBC (INCL UDES DIFF/ PLT) red blood cell count 4.42 erick on/uL 3.80-5 .10 normal Not Available [address], [address], 02/27/2025 22:28:51 02/27/20 25 02/27/2025 CBC (INCL UDES DIFF/ PLT) hemoglobin 13.2 g/dL 11.7-1 5.5 normal Not Available [address], [address], 02/27/2025 22:28:51 02/27/20 25 02/27/2025 CBC (INCL UDES DIFF/ PLT) hematocrit 41.4 % 35.0-4 5.0 normal Not Available [address], [address], 02/27/2025 22:28:51 02/27/20 25 02/27/2025 CBC (INCL UDES DIFF/ PLT) MCV 93.7 fL 80.0-1 00.0 normal Not Available [address], [address], 02/27/2025 22:28:51 02/27/20 25 02/27/2025 CBC (INCL UDES DIFF/ PLT) MCH 29.9 pg 27.0-3 3.0 normal Not Available [facility] [address], [address], 02/27/2025 22:28:51 02/27/20 25 02/27/2025 CBC (INCL [...] rajiv condi tion. Not Available [facility] [address], [address], 02/27/2025 22:28:51 02/27/20 25 02/27/2025 CBC (INCL UDES DIFF/ PLT) RDW 12.5 % 11.0-1 5.0 normal Not Available [facility] [address], [address], 02/27/2025 22:28:51 02/27/20 25 02/27/2025 CBC (INCL UDES DIFF/ PLT) platelet count 294 thous and/u L 140-40 0 normal Not Available [facility] [address], [address], 02/27/2025 22:28:51 02/27/20 25 02/27/2025 CBC (INCL UDES DIFF/ PLT) MPV 11.6 fL 7.5-12 .5 normal Not Available [facility] [address], [address], 02/27/2025 22:28:51 02/27/20 25 02/27/2025 CBC (INCL UDES DIFF/ PLT) absolute neutrophils 6408 cells /uL 1500-7 800 normal Not Available [facility] [address], [address], 02/27/2025 22:28:51 02/27/20 25 02/27/2025 CBC (INCL UDES DIFF/ PLT) absolute lymphocytes 1833 cells /uL 850-39 00 normal Not Available [address], [address], 02/27/2025 22:28:51 02/27/20 25 02/27/2025 CBC (INCL UDES DIFF/ PLT) absolute monocytes 481 cells /uL 200-95 0 normal Not Available [address], [address], 02/27/2025 22:28:51 02/27/20 25 02/27/2025 CBC (INCL UDES DIFF/ PLT) absolute eosinophils 151 cells /uL 15-500 normal Not Available [address], [address], 02/27/2025 22:28:51 02/27/20 25 02/27/2025 CBC (INCL UDES DIFF/ PLT) absolute basophils 27 cells /uL 0-200 normal Not Available [address], [address], 02/27/2025 22:28:51 02/27/20 25 02/27/2025 CBC (INCL UDES DIFF/ PLT) neutrophils 72 % normal Not Available [address], [address], 02/27/2025 22:28:51 02/27/20 25 02/27/2025 CBC (INCL UDES DIFF/ PLT) lymphocytes 20.6 % normal Not Available [address], [address], 02/27/2025 22:28:51 02/27/20 25 02/27/2025 CBC (INCL UDES DIFF/ PLT) monocytes 5.4 % normal Not Available [address], [address], 02/27/2025 22:28:51 02/27/20 25 02/27/2025 CBC (INCL UDES DIFF/ PLT) eosinophils 1.7 % normal Not Available [place] [address] [place], [address], 02/27/2025 22:28:51 02/27/20 25 02/27/2025 CBC (INCL UDES DIFF/ PLT) basophils 0.3 % normal Not Available [facility] [address] [place], [address], 02/27/2025 22:28:51 02/27/20 25 02/27/2025 HEPAT ITIS B SURFA CE ANTIG EN W/REF L CONFI RM hepatitis B surface antigen NON-RE ACTIVE non-re active normal For addit ional infor amy raphael, sabrina e refer to http: //[facility]odd raphael.que stdia gnost ics.c om/fa q/FAQ 202 (This link is being provi ded for infor matio nal/ educa jhonathan l purpo ses only. ) Not Available [facility] [address], [address], 02/27/2025 22:28:52 02/27/20 25 02/27/2025 HEPAT ITIS [...] a test for HCV RNA (test code 71117 ) is sugge sted. For addit ional infor amy raphael pleas e refer to http: //[facility] n.que stdia gnost ics.c om/fa q/FAQ 22v1 (This link is being provi ded for infor matio nal/ educa jhonahtan l purpo ses only. ) Not Available [facility] [address] [address] [place], [address], 02/27/2025 22:28:53 02/27/20 25 02/27/2025 RUBEL LA [...] with rubel la virus . Not Available [facility] [address], [place], [address], 02/27/2025 22:28:53 02/27/2002/27/2025 HIV 1/2 ANTIG EN/AN [...] less than 2 years old. Not Available [place] [address] [place], [address], 02/27/2025 22:28:54 02/27/20 25 02/27/2025 RPR (DX) W/REF L TITER AND T. PALLI DUM AB, IA RPR (DX) w/refl titer and confirmatory testing NON-RE ACTIVE non-re active normal No labor atory evide nce of syphi lis. If recen t expos ure is suspe cted, submi t a new sampl e in 2-4 weeks . Not Available [facility] [address] [place], [address], 02/27/2025 22:28:55 02/27/20 25 02/27/2025 ANTIB MAICOL [...] alloi mmuni zed pregn benjamin. Not Available [address] [place], [address], 02/27/2025 22:28:56 02/27/20 25 02/27/2025 ABO GROUP AND RH TYPE ABO group O Not Available [facility] [address] [address] [place], [address], 02/27/2025 22:28:57 02/27/20 25 02/27/2025 ABO GROUP AND RH TYPE Rh type RH(D) POSITI VE For addit ional infor sabrina roth e refer to http: //[facility] hayley lesterQue stDia gnost ics.c om/fa q/FAQ 111 (This link is being provi ded for infor amy trujillo/ educcatracho ring l purpo ses only. ) Not Available [facility] [place] [address] [address] [address], [place], [address], 02/27/2025 22:28:57 02/27/20 25 02/27/2025 DRUG MONIT OR, PANEL 1, SCREE N, URINE amphetamines NEGATI VE NG/mL <500 See Note A See Note A Not Available [facility] [address], [place], [address], 02/27/2025 22:28:58 02/27/20 25 02/27/2025 DRUG MONIT OR, PANEL 1, SCREE N, URINE barbiturates NEGATI VE NG/mL <300 See Note A See Note A Not Available [facility] [address] [address] [address], [place], [address], 02/27/2025 22:28:58 02/27/20 25 02/27/2025 DRUG MONIT OR, PANEL 1, SCREE N, URINE benzodiazepi duane NEGATI VE NG/mL <100 See Note A See Note A Not Available [facility] [address] [address], [place], [address], 02/27/2025 22:28:58 02/27/2002/27/2025 DRUG MONIT OR, PANEL 1, SCREE N, URINE cocaine metabolite NEGATI VE NG/mL <150 See Note A See Note A Not Available [facility] [address] [address], [place], [address], 02/27/2025 22:28:58 02/27/20 25 02/27/2025 DRUG MONIT OR, PANEL 1, SCREE N, URINE marijuana metabolite NEGATI VE NG/mL <20 See Note A See Note A Not Available [facility] [address], [place], [address], 02/27/2025 22:28:58 02/27/20 25 02/27/2025 DRUG MONIT OR, PANEL 1, SCREE N, URINE methadone metabolite NEGATI VE NG/mL <100 See Note A See Note A Not Available [facility] [address], [place], [address], 02/27/2025 22:28:58 02/27/20 25 02/27/2025 DRUG MONIT OR, PANEL 1, SCREE N, URINE opiates NEGATI VE NG/mL <100 See Note A See Note A Not Available [address], [place], [address], 02/27/2025 22:28:58 02/27/20 25 02/27/2025 DRUG MONIT OR, PANEL 1, SCREE N, URINE oxycodone NEGATI VE NG/mL <100 See Note A See Note A Not Available [address], [place], [address], 02/27/2025 22:28:58 02/27/20 25 02/27/2025 DRUG MONIT OR, PANEL 1, SCREE N, URINE phencyclidin e NEGATI VE NG/mL <25 See Note A See Note A Not Available [address], [place], [address], 02/27/2025 22:28:58 02/27/20 25 02/27/2025 DRUG MONIT OR, PANEL 1, SCREE N, URINE creatinine 108.1 mg/dL > or = 20.0 Not Available [place] [address], [place], [address], 02/27/2025 22:28:58 02/27/20 25 02/27/2025 DRUG MONIT OR, PANEL 1, SCREE N, URINE pH 7.7 4.5-9. 0 Not Available [place] [address], [place], [address], 02/27/2025 22:28:58 02/27/20 25 02/27/2025 DRUG MONIT OR, PANEL 1, SCREE N, URINE oxidant NEGATI VE mcg/m L <200 Not Available [place] [address], [place], [address], 02/27/2025 22:28:58 02/27/20 25 02/27/2025 DRUG MONIT [...] M-F, 8am to 10pm EST Not Available [place] [address] [address] [place], [address], 02/27/2025 22:28:59 02/27/2002/27/2025 CULTU RE, URINE , ROUTI NE culture, urine, routine SEE NOTE CULTU RE, URINE , ROUTI NE Micro Numbe r: [id number] Test Statu s: Final Speci men Sourc e: Urine Speci men Quali ty: Adequ ate Resul t: No Growt h Not Available [place] [address] [place], [address], 02/27/2025 22:28:59 02/27/2003/08/2025 THINP REP TIS PAP (REFL ) HPV MRNA E6/E7 clinical information: normal Pregn ant Not Available [facility] [address] [address] [place], [address], 03/08/2025 08:16:51 02/27/2003/08/2025 THINP REP TIS PAP (REFL ) HPV MRNA E6/E7 LMP: normal NONE GIVEN Not Available [facility] [address] [address] [place], [address], 03/08/2025 08:16:51 02/27/20 25 03/08/2025 THINP REP TIS PAP (REFL ) HPV MRNA E6/E7 prev. Pap: normal NONE GIVEN Not Available [address], [address], 03/08/2025 08:16:51 02/27/2003/08/2025 THINP REP TIS PAP (REFL ) HPV MRNA E6/E7 prev. BX: normal NONE GIVEN Not Available [address] [place], [address], 03/08/2025 08:16:51 02/27/2003/08/2025 THINP REP TIS PAP (REFL ) HPV MRNA E6/E7 source: normal Cervi x, Endoc ervix Not Available [address], [address], 03/08/2025 08:16:51 02/27/2003/08/2025 THINP REP TIS PAP (REFL ) HPV MRNA E6/E7 statement of adequacy: normal Satis facto ry for evalu ation . Endoc ervic al/tr ansfo rmati on zone compo nent prese nt. Not Available [address], [address], 03/08/2025 08:16:51 02/27/2003/08/2025 THINP REP TIS PAP (REFL ) HPV MRNA E6/E7 general categorizati on: abnormal Cytol ogy Resul ts: Epith elial Cell Abnor malit y Not Available [address], [address], 03/08/2025 08:16:51 02/27/2003/08/2025 THINP REP TIS PAP (REFL ) HPV MRNA E6/E7 interpretati on/result: abnormal Low Grade Squam ous Intra epith elial Lesio n (LSIL ) Not Available [address] [place], [address], 03/08/2025 08:16:51 02/27/20 25 03/08/2025 THINP REP TIS PAP (REFL ) HPV MRNA E6/E7 comment: normal This Pap test has been evalu ated with sherice mayen techn ology . Sugge st clini rajiv corre latio n and follo w-up as clini solomon appro priat e Not Available [place] [place], [address], 03/08/2025 08:16:51 02/27/20 25 03/08/2025 THINP REP TIS PAP (REFL ) HPV MRNA E6/E7 cytotechnolo gist: normal KMS, CT( CP) CT Scree pat locat ion: [place] [address] [place] [address] Not Available [place] [address] [place], [address], 03/08/2025 08:16:51 02/27/20 25 03/08/2025 THINP REP TIS PAP (REFL ) HPV MRNA E6/E7 pathologist: normal Alisha monique M.D., Board Certi fied in [place] Patho logy and Cytop athol ogy. Phone : [phone] (elec troni c signa ture) Patho logis t Relea se Date/ Time: 03/06 09:25 AM Not Available [place] [address] [place], [address], 03/08/2025 08:16:51 02/27/20 25 03/08/2025 THINP REP [...] clini rajiv infor amy raphael. Not Available [place] [address] [address] [place], [address], 03/08/2025 08:16:51 02/27/20 25 03/08/2025 HPV MRNA [...] l purpo ses only. ) Not Available [place] [address] [address] [place], [address], 03/08/2025 08:16:53 02/27/20 25 02/26/2025 CT + NG + TV, DNA, urine /swab Chlamydia negati ve Not Available [facility] ([facility]) [address] [place] [address], [address], 02/25/2025 18:55:26 02/27/20 25 02/26/2025 CT + NG + TV, DNA, urine /swab Gonorrhea negati ve Not Available [facility] ([facility]) [address] [place] [address], [address], 02/25/2025 18:55:26 02/27/20 25 02/26/2025 CT + NG + TV, DNA, urine /swab Trichomonas negati ve Not Available [facility] ([facility]) [address] [place], [address], 02/25/2025 18:55:26 07/02/20 25 07/02/2025 CBC WBC 11.1 x10 4.0-10 .5 high Not Available [facility] [address] [address] [address], [place], [address], 07/02/2025 10:24:57 07/02/20 25 07/02/2025 CBC RBC 3.96 x10 3.50-5 .50 Not Available [facility] [address] [facility] [address], [place], [address], 07/02/2025 10:24:57 07/02/20 25 07/02/2025 CBC HGB 12.0 g/dL 12.0-1 6.0 Not Available [facility] [address] [facility], [place], [address], 07/02/2025 10:24:57 07/02/20 25 07/02/2025 CBC HCT 37.1 % 37.0-4 7.0 Not Available [facility] [address] [facility], [place], [address], 07/02/2025 10:24:57 07/02/20 25 07/02/2025 CBC MCV 93.8 fL 80.0-9 9.9 Not Available [facility] [address] [facility] 1, [place], [address], 07/02/2025 10:24:57 07/02/20 25 07/02/2025 CBC MCH 30.4 pg 27.0-3 2.0 Not Available [facility] [address] [facility] [address], [place], [address], 07/02/2025 10:24:57 07/02/2007/02/2025 CBC MCHC 32.4 g/dL 32.0-3 6.0 Not Available [facility] [address] [facility] [address], [place], [address], 07/02/2025 10:24:57 07/02/2007/02/2025 CBC RDW 12.9 % 11.5-1 4.5 Not Available [facility] [address] [facility] 1, [place], [address], 07/02/2025 10:24:57 07/02/2007/02/2025 CBC plt 227.7 x10 140.0- 451.0 Not Available [facility] [address] [facility] 1, [place], [address], 07/02/2025 10:24:57 07/02/2007/02/2025 CBC lymphocytes % 15.5 % 20.0-5 0.0 low Not Available [facility] [address] [facility] [address], [place], [address], 07/02/2025 10:24:57 07/02/2007/02/2025 CBC granulcytes % 78.3 % 30.0-7 0.0 high Not Available [facility] [address] [facility] 1, [place], [address], 07/02/2025 10:24:57 07/02/2007/02/2025 CBC monocytes % 4.2 % 2.0-16 .0 Not Available [facility] [address] [facility] 1, [place], [address], 07/02/2025 10:24:57 07/02/2007/02/2025 CBC granulcytes# 8.7 x10 Not Jenny ilable [facility] [address] [facility] [address], [place], [address], 07/02/2025 10:24:57 07/02/20 25 07/02/2025 CBC lymphocytes # 1.7 x10 Not Available [facility] [address] [facility] [address], [place], [address], 07/02/2025 10:24:57 07/02/20 25 07/02/2025 CBC monocytes # 0.5 x10 Not Avai lable [facility] [address] [facility] [address], [place], [address], 07/02/2025 10:24:57 07/02/20 25 07/02/2025 GLUCO SE SCREE N glucose screen 135.0 mg/dL Not Available [facility] [address] [address], [place], [address], 07/02/2025 10:30:30 07/11/20 25 07/11/2025 GLUCO SE SCREE N glucose screen 133.0 mg/dL Not Available [facility] [address] [facility] [address], [place], [address], 07/11/2025 10:37:03 02/19/20 25 02/12/2025 US, chadwick tric, 1st trime ster No observ ation record ed. [email or web address] Not Available 02/19 09:09:34 04/25/20 25 04/18/2025 US, chadwick tric, follo w-up No observ ation record ed. [email or web address] [facility] [address] [place], [address], 04/29/2025 09:24:34 05/11/20 25 05/07/2025 US, angelae tric, 2nd trime ster No observ ation record ed. [address] [place], [address], 05/13/2025 17:57:21 07/05/20 25 07/02/2025 imagi ng/di agnos tic resul t No observ ation record ed. [facility] [address] [place], [address], 07/09/2025 10:35:54 Result Notes None recorded. Problems Name Problem SNOMED Code Status Onset Date Resolution Date Notes Provider Name and Address Organization Details Recorded Time Rheumatoid arthritis 31207545 Active 2022 KERWIN roper [facility] 5 14:16:25 Pain of knee region 5638131385 Completed 202301/24/2025 KERWIN roper [facility] 5 14:16:23 Family history of diabetes mellitus 282660309 Active 2023 KERWIN roper [facility] 5 14:16:18 Normal 46174906 Active 2024 ROXI Vang [facility] 5 10:22:35 Normal 93814758 Active 2024 ROXI PLUMMER null [facility] 5 10:22:35 Placenta previa partialis 89194627 Active 2024 Alvaro Angelo MD [address] [place] [address], [phone], [facility] L[facility]CRemigio 5 02:46:26 Low-lying placenta 792645311 Active 2024 Alvaro Angelo MD [address] [place] [address], [phone], [facility] 5 11:36:47 Problem Notes None recorded. Procedures Surgical History Date Name Laterality Status Provider Name and Address Organization Details Recorded Time 02/27/20 25 Date of Last Pap Smear completed [facility] 09/02/2025 18:39:21 02/27/20 25 liquid based cervical cytology screening completed [facility] 09/02/2025 18:39:54 01/31/20 24 colposcopy completed [facility] 01/24/2025 14:17:49 01/31/20 24 hysteroscopy completed [facility] 01/24/2025 14:18:46 arthroscopy of left knee joint completed [facility]CR[facility]io 01/24/2025 14:17:01 cholecystectomy completed [facility] 01/24/2025 14:17:33 Imaging Results None recorded. Procedure Notes None recorded. Medical Equipment None Reported. Allergies Allergen ID Allergen Name Allergen Category Reaction Reaction Severity Criticality Documentation Date Start Date Code Code System Note Provider Name and Address Organization Details Recorded Time 99133 Bactrim medicatio n hives moderate Not available 05/21/2023 10284 9 RxNorm ROXI SHEARER [facility] 5 15:30:03 72954 Product containin g penicilli n (product) medicatio n hives moderate Not available 05/21/2023 42192 8001 SNOMED BENNETT MANFRED [facility] 5 15:30:03 61255 Augmentin medicatio n hives moderate Not available 01/24/2025 36172 2 RxNorm [facility] 5 14:19:18 27235 Celebrex medicatio n other moderate Not available 01/24/2025 33597 7 RxNorm TREBA MANFRED KAVITHA [facility]Rem[facility]. 5 15:30:03 70979 Substance with sulfonami de structure and antibacte rial mechanism of action (substanc e) medicatio n hives moderate Not available 04/18/2025 17488 8003 SNOMED ROXI SHEARER KAVITHA [facility] 5 15:30:03 43989 amoxicill in / clavulana te medicatio n hives Not available high 09/06/20252022 00659 RxNorm Yessy ates PCN and amoxi cilli n fine Not Available anna - External Data Service - prod 5 07:58:34 36461 celecoxib medicatio n Not available Not available high 09/06/20252022 06065 7 RxNorm Not Available anna - External Data Service - prod 5 07:58:34 04900 amoxicill in medicatio n Not available Not available low 09/27/20252023 723 RxNorm Not Available anna - External Data Service - prod 5 13:40:54 84998 clavulani c acid Not available Not available Not available low 09/27/20252023 91835 RxNorm Not Available anna - External Data Service - prod 5 13:40:54 50199 sulfameth oxazole medicatio n Not available Not available Not available 09/27/20252023 28307 RxNorm Not Available anna - External Data Service - prod 13:40:54 07237 trimethop rim medicatio n Not available Not available Not available 09/27/20252023 01792 RxNorm Not Available anna - External Data [...] Last Updated DateTime 170.18 cm 37.5 kg/m2 966259. 98 g 98.1 [degF] 97 % 88 /min 18 /min 122/64 mm[Hg] KERWIN DUNAWAY [facility] 11:16:09 Social History Question Answer Notes LastModified by Digital Performance Details LastModified Time Tobacco Smoking Status Former Smoker ANTONIO MCFADDEN [email or web address] [facility] 01/24/2023 10:09:31 Are You Blind Or Do You Have Difficulty Seeing? No Information not available 01/24/2025 Are You Deaf Or Do You Have Serious Difficulty Hearing? No [email or web address] Information not available 01/24/2023 When Did You Quit Smoking? 1-5yearssinc elastcigaret te [email or web address] Information not available 01/24/2023 Do You Work In Healthcare? No Information not available 01/24/2025 What Was The Date Of Your Most Recent Tobacco Screening? 03/26/2025 [email or web address] Information not available 03/26/2025 What Is Your Relationship Status? Information not available 01/24/2025 Have You Recently Traveled Abroad? No [email or web address] Information not available 01/24/2023 Do You Have Difficulty Walking Or Climbing Stairs? No [email or web address] Information not available 01/24/2023 Sex: Unknown Functional Status Question Answer Note LastModified by Digital Performance Details LastModified Time Do you use any [...] independently without assistance or assistive devices? YESWOREST [email or web address] Information not available 01/24/2023 Do you have difficulty doing errands alone? No [email or web address] Information not available 01/24/2023 Are you able to care for yourself independently? 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 No [email or web address] Information not available 01/24/2023 Do you or have you ever used e-cigarettes or vape? Former user of electronic cigarettes Information not available 01/24/2025 Mental Status Question Answer Note LastModified by Organization D etails LastModified Time Do you have difficulty concentrating, remembering or making decisions? No [email or web address] Information no t available 01/24/2023 Family History Relationship Description Onset Age of this Age Resolved Age Notes LastModified by Organization Details LastModified Time Father Diabetes mellitus [email or web address] Not available 2023 09:43:45 Paternal Grandmother Malignant [...] Recorded Time IPV 09/28/2000 completed Susan roper, [facility] 10/09/2024 09:35:10 MMR 04/11/1996 completed Susan roper, [facility] 10/09/2024 09:35:10 MMR 09/28/2000 completed Susan roper, [facility] 10/09/2024 09:35:10 Tdap 11/17/2010 completed Susan roper, [facility] 10/09/2024 09:35:10 [facility]dap 02/20/2015 [facility] 10/09/2024 09:35:10 Hep B, unspecified formulation 1995 completed Susan Wilson null, [facility] 10/09/2024 09:35:10 Hep B, unspecified formulation 02/28/1996 completed Susan roper, [facility] 10/09/2024 09:35:10 Hep B, unspecified formulation 1995 completed Susan roper [facility] 10/09/2024 09:35:10 OPV, trivalent 1995 completed Susan Wilson null, [facility] 10/09/2024 09:35:10 OPV, trivalent 02/28/1996 completed Susan roper, [facility] 10/09/2024 09:35:10 OPV, trivalent 1995 completed Susan roper [facility] 10/09/2024 09:35:10 DTP-Hib 11/29/1996 completed Susan Wilson null, [facility] 10/09/2024 09:35:10 DTP-Hib 1995 completed Susan Wilson null, [facility] 10/09/2024 09:35:10 DTP-Hib 02/28/1996 completed Susan Wilson null, [facility] 10/09/2024 09:35:10 DTP-Hib 1995 completed Susan Wilson null, [facility] 10/09/2024 09:35:10 DTaP 09/28/2000 completed Susan Wilson null, [facility] 10/09/2024 09:35:10 Past Encounters Encounter ID Performer Location Encounter Start Date Encounter Closed Date Diagnosis/Indication Diagnosis SNOMED-CT Code Diagnosis ICD10 Code Diagnosis IMO Codes Diagnosis Note [id number] Alvaro Angelo MD [facility]) [address] [place] [phone] 5 07/16/2025 10:32:08 07/16/2025 11:40:01 Multigravida 784091511 Z34.83 77738493 Gestation period, 30 weeks 51037961 Z3A.30 [id number] Alvaro Angelo MD [facility]) [address] [place] [phone] 5 07/30/2025 10:40:36 07/30/2025 11:28:24 Normal 67581320 Z34.83 Gestation period, 32 weeks 2025009 Z3A.32 [id number] Alvaro Angelo MD [facility]) [address] [place] [phone] 5 08/13/2025 10:44:33 08/13/2025 11:38:15 Normal 95699359 Z34.83 Gestation period, 34 weeks 76230422 Z3A.34 [id number] Health Concerns Section Related Observation LastModified by Organization Detai ls LastModified Time None Recorded Concern Status LastModified by Organization Details LastModified Time None Recorded Payers Encounter Date Sequence Insurance Name Policy Number Policy Fierro Covered Member ID Fierro Member ID Guarantor Name 08/13/2025 1 [employer] [id number] Jeffy Zimmerman [id number] Jeffy Zimmerman Notes Date Note Type [...] noted in the HPI Alvaro Angelo MD [address] [place] [address], [id number], [facility] 08/13/2025 11:34:00 OBGyn Episode Ob Episode Information Episode Created Date Number of Fetuses Patient Bloodtype Patient rh Status Prepregnancy Weight lbs Domestic Partner Domestic Partner Phone Father Name Arborist Representative Status 01/25/20 25 1 O Positive Damián [...] Resolution Snomed Code Not e Normal 02/25/2025 [id number] Merrill Calculation Initial Merrill Date Initial Exam [...] Weight in lbs Pre/Post Dialysis Refused Weight 227.220706080193 BP Diastolic BP Location Tested BP Systolic [...] Weight in lbs Pre/Post Dialysis Refused Weight 221.100931674279 BP Diastolic BP Location Tested BP Systolic [...] Weight in lbs Pre/Post Dialysis Refused Weight 221.387803648854 BP Diastolic BP Location Tested BP Systolic [...] Weight in lbs Pre/Post Dialysis Refused Weight 225.623406178514 BP Diastolic BP Location Tested BP Systolic [...] posterior and Partial previa. Flowsheet Date 05/07/2025 Sirera Score Blood Edema Fundus Height Fundus [...] Weight in lbs Pre/Post Dialysis Refused Weight 230.855798813598 BP Diastolic BP Location Tested BP Systolic BP Type 62 L arm 106 Fetus Heart Rate Present A 148 Present Fetus Movement A Yes Comments heartburn Flowsheet Date 06/18/2025 Sierra Score Blood Edema Fundus Height Fundus Units Glucose Ketones Leukocytes Nitrite Labor Signs Protein Cervic Dilation Cervic Effacement Cervic Station Type Weight in lbs Pre/Post Dialysis Refused Weight 229.5954954377 BP Diastolic BP Location Tested BP Systolic [...] Present Fetus Movement Comments Flowsheet Date 07/02/2025 Sierar Score Blood Edema Fundus Height Fundus Units [...] Weight in lbs Pre/Post Dialysis Refused Weight 234.898659091565 BP Diastolic BP Location Tested BP Systolic [...] Weight in lbs Pre/Post Dialysis Refused Weight 232.714110511045 BP Diastolic BP Location Tested BP Systolic [...] Weight in lbs Pre/Post Dialysis Refused Weight 236.651470160087 BP Diastolic BP Location Tested BP Systolic [...] Weight in lbs Pre/Post Dialysis Refused Weight 239.036414270738 BP Diastolic BP Location Tested BP Systolic [...] Weight in lbs Pre/Post Dialysis Refused Weight 241.397881933849 BP Diastolic BP Location Tested BP Systolic [...] Cervic Effacement Cervic Station none none Negative Kendrick Mata neg 2cm 70% -3 Type Weight in lbs Pre/Post Dialysis Refused Weight 241.546084590599 BP Diastolic BP Location Tested BP Systolic [...] Weight in lbs Pre/Post Dialysis Refused Weight 243.777176184605 BP Diastolic BP Location Tested BP Systolic BP Type 70 120 Fetus Heart Rate Present Fetus Movement Comments Flowsheet Date 09/10/2025 Sierra Score Blood Edema Fundus Height Fundus Units Glucose Ketones Leukocytes Nitrite Labor Signs Protein Cervic Dilation Cervic Effacement Cervic Station none trace Negative Kendrick Mata neg 2cm 70% -3 Type Weight in lbs Pre/Post Dialysis Refused Weight 243.789107511466 BP Diastolic BP Location Tested BP Systolic [...] Weight in lbs Pre/Post Dialysis Refused Weight 242.506035869998 BP Diastolic BP Location Tested BP Systolic BP Type 70 122 Fetus Heart Rate Present A 164 Present Fetus Movement A Yes Comments low back pain, vaginal press ure, swelling in hands/feet Flowsheet Date 09/24/2025 Sierra Score Blood Edema Fundus Height Fundus Units Glucose Ketones Leukocytes Nitrite Labor Signs Protein Cervic Dilation Cervic Effacement Cervic Station none 1+ Negative Kendrick Mata trace 3cm 70% -4 Type Weight in lbs Pre/Post Dialysis Refused Weight 244.818236058511 BP Diastolic BP Location Tested BP Systolic [...] Weight in lbs Pre/Post Dialysis Refused Weight 248.477913632719 BP Diastolic BP Location Tested BP Systolic [...] Estim ated Date of Delivery false Thalassemia (Pashto, Latvian, Mediterranean, Or Background): MCV < 80 false Neural Tube Defect (Meningomyelocele, Spina Bifi da, Or Anencephaly) false Congenital Heart Defect false Down Syndrome false Maco-Sachs (eg, Rastafarian, Cajun, [place]an-Eritrean) f alse Dustin Disease false Sickle Cell Disease Or Trait () false Hemophilia Or Other Blood Disorders false Muscular Dystrophy false Cystic Fibrosis false Bowie's Chorea false Intellectual Disability/Autism false If Yes, [...]
--- OUTSIDE RECORDS SUMMARY | 2025-09-30 23:41 | XMS_ITS | Continuity of Care Document ---
Author Organization [facility] Fabio Myers [facility] [place], [place], [facility] ([facility]) Address [address] [place] [address] Assessment No assessment recorded. Plan of Treatment [...] ETE color YELLOW yellow normal Not Available [employer] [address] [place], [address], 02/27/2025 22:28:50 02/27/20 25 02/27/2025 URINA LYSIS , COMPL ETE appearance CLEAR clear normal Not Available [employer] [address] [place], [address], 02/27/2025 22:28:50 02/27/20 25 02/27/2025 URINA LYSIS , COMPL ETE specific gravity 1.012 1.001- 1.035 normal Not Available [employer] [address] [place], [address], 02/27/2025 22:28:50 02/27/20 25 02/27/2025 URINA LYSIS , COMPL ETE pH 7.5 5.0-8. 0 normal Not Available [address], [address], 02/27/2025 22:28:50 02/27/20 25 02/27/2025 URINA LYSIS , COMPL ETE glucose NEGATI VE negati ve normal Not Available [address], [address], 02/27/2025 22:28:50 02/27/20 25 02/27/2025 URINA LYSIS , COMPL ETE bilirubin NEGATI VE negati ve normal Not Available [address], [address], 02/27/2025 22:28:50 02/27/20 25 02/27/2025 URINA LYSIS , COMPL ETE ketones NEGATI VE negati ve normal Not Available [address], [address], 02/27/2025 22:28:50 02/27/20 25 02/27/2025 URINA LYSIS , COMPL ETE occult blood NEGATI VE negati ve normal Not Available [facility] [address], [address], 02/27/2025 22:28:50 02/27/20 25 02/27/2025 URINA LYSIS , COMPL ETE protein NEGATI VE negati ve normal Not Available [facility] [address], [address], 02/27/2025 22:28:50 02/27/20 25 02/27/2025 URINA LYSIS , COMPL ETE nitrite NEGATI VE negati ve normal Not Available [facility] [address], [address], 02/27/2025 22:28:50 02/27/20 25 02/27/2025 URINA LYSIS , COMPL ETE leukocyte esterase TRACE negati ve abnormal Not Available [address], [address], 02/27/2025 22:28:50 02/27/20 25 02/27/2025 URINA LYSIS , COMPL ETE WBC NONE SEEN /hpf < or = 5 normal Not Available [address], [address], 02/27/2025 22:28:50 02/27/20 25 02/27/2025 URINA LYSIS , COMPL ETE RBC NONE SEEN /hpf < or = 2 normal Not Available [address], [address], 02/27/2025 22:28:50 02/27/20 25 02/27/2025 URINA LYSIS , COMPL ETE squamous epithelial cells 6-10 /hpf < or = 5 abnormal Not Available [address], [address], 02/27/2025 22:28:50 02/27/20 25 02/27/2025 URINA LYSIS , COMPL ETE bacteria NONE SEEN /hpf none seen normal Not Available [address], [address], 02/27/2025 22:28:50 02/27/20 25 02/27/2025 URINA LYSIS , COMPL ETE hyaline cast NONE SEEN /lpf none seen normal Not Available [address], [address], 02/27/2025 22:28:50 02/27/20 25 02/27/2025 URINA LYSIS , COMPL ETE note This urine was jim zed for the prese nce of WBC, RBC, bacte terry, casts , and other forme d eleme nts. Only those eleme nts seen were repor bruce. Not Available [address], [address], 02/27/2025 22:28:50 02/27/20 25 02/27/2025 CBC (INCL UDES DIFF/ PLT) white blood cell count 8.9 thous and/u L 3.8-10 .8 normal Not Available [address], [address], 02/27/2025 22:28:51 02/27/20 25 02/27/2025 CBC (INCL UDES DIFF/ PLT) red blood cell count 4.42 erick on/uL 3.80-5 .10 normal Not Available [address], [address], 02/27/2025 22:28:51 02/27/20 25 02/27/2025 CBC (INCL UDES DIFF/ PLT) hemoglobin 13.2 g/dL 11.7-1 5.5 normal Not Available [address], [address], 02/27/2025 22:28:51 02/27/20 25 02/27/2025 CBC (INCL UDES DIFF/ PLT) hematocrit 41.4 % 35.0-4 5.0 normal Not Available [address], [address], 02/27/2025 22:28:51 02/27/20 25 02/27/2025 CBC (INCL UDES DIFF/ PLT) MCV 93.7 fL 80.0-1 00.0 normal Not Available [address], [address], 02/27/2025 22:28:51 02/27/20 25 02/27/2025 CBC (INCL UDES DIFF/ PLT) MCH 29.9 pg 27.0-3 3.0 normal Not Available [employer] [address], [address], 02/27/2025 22:28:51 02/27/20 25 02/27/2025 CBC (INCL [...] rajiv condi tion. Not Available [facility] [address], [address], 02/27/2025 22:28:51 02/27/20 25 02/27/2025 CBC (INCL UDES DIFF/ PLT) RDW 12.5 % 11.0-1 5.0 normal Not Available [facility] [address], [address], 02/27/2025 22:28:51 02/27/20 25 02/27/2025 CBC (INCL UDES DIFF/ PLT) platelet count 294 thous and/u L 140-40 0 normal Not Available [facility] [address], [address], 02/27/2025 22:28:51 02/27/20 25 02/27/2025 CBC (INCL UDES DIFF/ PLT) MPV 11.6 fL 7.5-12 .5 normal Not Available [employer] [facility] [address], [address], 02/27/2025 22:28:51 02/27/20 25 02/27/2025 CBC (INCL UDES DIFF/ PLT) absolute neutrophils 6408 cells /uL 1500-7 800 normal Not Available [facility] [address], [address], 02/27/2025 22:28:51 02/27/20 25 02/27/2025 CBC (INCL UDES DIFF/ PLT) absolute lymphocytes 1833 cells /uL 850-39 00 normal Not Available [address], [address], 02/27/2025 22:28:51 02/27/20 25 02/27/2025 CBC (INCL UDES DIFF/ PLT) absolute monocytes 481 cells /uL 200-95 0 normal Not Available [address], [address], 02/27/2025 22:28:51 02/27/20 25 02/27/2025 CBC (INCL UDES DIFF/ PLT) absolute eosinophils 151 cells /uL 15-500 normal Not Available [address], [address], 02/27/2025 22:28:51 02/27/20 25 02/27/2025 CBC (INCL UDES DIFF/ PLT) absolute basophils 27 cells /uL 0-200 normal Not Available [address], [address], 02/27/2025 22:28:51 02/27/20 25 02/27/2025 CBC (INCL UDES DIFF/ PLT) neutrophils 72 % normal Not Available [address], [address], 02/27/2025 22:28:51 02/27/20 25 02/27/2025 CBC (INCL UDES DIFF/ PLT) lymphocytes 20.6 % normal Not Available [address], [address], 02/27/2025 22:28:51 02/27/20 25 02/27/2025 CBC (INCL UDES DIFF/ PLT) monocytes 5.4 % normal Not Available [address], [address], 02/27/2025 22:28:51 02/27/20 25 02/27/2025 CBC (INCL UDES DIFF/ PLT) eosinophils 1.7 % normal Not Available [address] [address] [place], [address], 02/27/2025 22:28:51 02/27/20 25 02/27/2025 CBC (INCL UDES DIFF/ PLT) basophils 0.3 % normal Not Available [facility] [address] [place], [address], 02/27/2025 22:28:51 02/27/20 25 02/27/2025 HEPAT ITIS B SURFA CE ANTIG EN W/REF L CONFI RM hepatitis B surface antigen NON-RE ACTIVE non-re active normal For addit ional infor amy raphael, sabrina e refer to http: //[facility] raphael.que stdia gnost ics.c om/fa q/FAQ 202 (This link is being provi ded for infor matio nal/ educa jhonathan l purpo ses only. ) Not Available [facility] [address], [address], 02/27/2025 22:28:52 02/27/20 25 02/27/2025 HEPAT ITIS [...] a test for HCV RNA (test code 36433 ) is sugge sted. For addit ional infor amy raphael pleas e refer to http: //[facility] n.que stdia gnost ics.c om/fa q/FAQ 22v1 (This link is being provi ded for infor matio nal/ educa jhonathan l purpo ses only. ) Not Available [facility] [address] [address] [place], [address], 02/27/2025 22:28:53 02/27/20 25 02/27/2025 RUBEL LA [...] with rubel la virus . Not Available [employer] [facility] [address] [address], [place], [address], 02/27/2025 22:28:53 02/27/2002/27/2025 HIV 1/2 ANTIG EN/AN [...] 2 years old. Not Available [address] [address] [place], [address], 02/27/2025 22:28:54 02/27/20 25 02/27/2025 RPR (DX) W/REF L TITER AND T. PALLI DUM AB, IA RPR (DX) w/refl titer and confirmatory testing NON-RE ACTIVE non-re active normal No labor atory evide nce of syphi lis. If recen t expos ure is suspe cted, submi t a new sampl e in 2-4 weeks . Not Available [facility] [address] [place], [address], 02/27/2025 22:28:55 02/27/20 25 02/27/2025 ANTIB EFREN [...] alloi mmuni zed pregn benjamin. Not Available [address] [place], [address], 02/27/2025 22:28:56 02/27/20 25 02/27/2025 ABO GROUP AND RH TYPE ABO group O Not Available [facility] [address] [address] [place], [address], 02/27/2025 22:28:57 02/27/20 25 02/27/2025 ABO GROUP AND RH TYPE Rh type RH(D) POSITI VE For addit ional infor sabrina roth e refer to http: //[facility] lesterQue stDia gnost ics.c om/fa q/FAQ 111 (This link is being provi ded for infor amy trujillo/ educcatracho ring l purpo ses only. ) Not Available [employer] [address] [address] [address], [place], [address], 02/27/2025 22:28:57 02/27/20 25 02/27/2025 DRUG MONIT OR, PANEL 1, SCREE N, URINE amphetamines NEGATI VE NG/mL <500 See Note A See Note A Not Available [employer] [address] [address] [address], [place], [address], 02/27/2025 22:28:58 02/27/20 25 02/27/2025 DRUG MONIT OR, PANEL 1, SCREE N, URINE barbiturates NEGATI VE NG/mL <300 See Note A See Note A Not Available [employer] [facility] [address] [address] [address], [place], [address], 02/27/2025 22:28:58 02/27/20 25 02/27/2025 DRUG MONIT OR, PANEL 1, SCREE N, URINE benzodiazepi duane NEGATI VE NG/mL <100 See Note A See Note A Not Available [employer] [address] [address] [address], [place], [address], 02/27/2025 22:28:58 02/27/2002/27/2025 DRUG MONIT OR, PANEL 1, SCREE N, URINE cocaine metabolite NEGATI VE NG/mL <150 See Note A See Note A Not Available [employer] [address] [address] [address], [place], [address], 02/27/2025 22:28:58 02/27/20 25 02/27/2025 DRUG MONIT OR, PANEL 1, SCREE N, URINE marijuana metabolite NEGATI VE NG/mL <20 See Note A See Note A Not Available [employer] [address] [address] [address], [place], [address], 02/27/2025 22:28:58 02/27/20 25 02/27/2025 DRUG MONIT OR, PANEL 1, SCREE N, URINE methadone metabolite NEGATI VE NG/mL <100 See Note A See Note A Not Available [employer] [address] [address] [address], [place], [address], 02/27/2025 22:28:58 02/27/20 25 02/27/2025 DRUG MONIT OR, PANEL 1, SCREE N, URINE opiates NEGATI VE NG/mL <100 See Note A See Note A Not Available [address] [address] [address], [place], [address], 02/27/2025 22:28:58 02/27/20 25 02/27/2025 DRUG MONIT OR, PANEL 1, SCREE N, URINE oxycodone NEGATI VE NG/mL <100 See Note A See Note A Not Available [address] [address] [address], [place], [address], 02/27/2025 22:28:58 02/27/20 25 02/27/2025 DRUG MONIT OR, PANEL 1, SCREE N, URINE phencyclidin e NEGATI VE NG/mL <25 See Note A See Note A Not Available [address] [address] [address], [place], [address], 02/27/2025 22:28:58 02/27/20 25 02/27/2025 DRUG MONIT OR, PANEL 1, SCREE N, URINE creatinine 108.1 mg/dL > or = 20.0 Not Available [address] [address] [address], [place], [address], 02/27/2025 22:28:58 02/27/20 25 02/27/2025 DRUG MONIT OR, PANEL 1, SCREE N, URINE pH 7.7 4.5-9. 0 Not Available [address] [address] [address], [place], [address], 02/27/2025 22:28:58 02/27/20 25 02/27/2025 DRUG MONIT OR, PANEL 1, SCREE N, URINE oxidant NEGATI VE mcg/m L <200 Not Available [address] [address] [address], [place], [address], 02/27/2025 22:28:58 02/27/20 25 02/27/2025 DRUG MONIT [...] to 10pm EST Not Available [address] [address] [place], [address], 02/27/2025 22:28:59 02/27/2002/27/2025 CULTU RE, URINE , ROUTI NE culture, urine, routine SEE NOTE CULTU RE, URINE , ROUTI NE Micro Numbe r: [id number] Test Statu s: Final Speci men Sourc e: Urine Speci men Quali ty: Adequ ate Resul t: No Growt h Not Available [address] [address] [place], [address], 02/27/2025 22:28:59 02/27/2003/08/2025 THINP REP TIS PAP (REFL ) HPV MRNA E6/E7 clinical information: normal Pregn ant Not Available [employer] [facility] [address] [address] [place], [address], 03/08/2025 08:16:51 02/27/2003/08/2025 THINP REP TIS PAP (REFL ) HPV MRNA E6/E7 LMP: normal NONE GIVEN Not Available [employer] [facility] [address] [address] [place], [address], 03/08/2025 08:16:51 02/27/20 25 03/08/2025 THINP REP TIS PAP (REFL ) HPV MRNA E6/E7 prev. Pap: normal NONE GIVEN Not Available [address], [address], 03/08/2025 08:16:51 02/27/2003/08/2025 THINP REP TIS PAP (REFL ) HPV MRNA E6/E7 prev. BX: normal NONE GIVEN Not Available [address] [place], [address], 03/08/2025 08:16:51 02/27/2003/08/2025 THINP REP TIS PAP (REFL ) HPV MRNA E6/E7 source: normal Cervi x, Endoc ervix Not Available [address], [address], 03/08/2025 08:16:51 02/27/2003/08/2025 THINP REP TIS PAP (REFL ) HPV MRNA E6/E7 statement of adequacy: normal Satis facto ry for evalu ation . Endoc ervic al/tr ansfo rmati on zone compo nent prese nt. Not Available [address], [address], 03/08/2025 08:16:51 02/27/2003/08/2025 THINP REP TIS PAP (REFL ) HPV MRNA E6/E7 general categorizati on: abnormal Cytol ogy Resul ts: Epith elial Cell Abnor malit y Not Available [address], [address], 03/08/2025 08:16:51 02/27/2003/08/2025 THINP REP TIS PAP (REFL ) HPV MRNA E6/E7 interpretati on/result: abnormal Low Grade Squam ous Intra epith elial Lesio n (LSIL ) Not Available [address] [place], [address], 03/08/2025 08:16:51 02/27/20 25 03/08/2025 THINP REP TIS PAP (REFL ) HPV MRNA E6/E7 comment: normal This Pap test has been evalu ated with sherice mayen techn ology . Sugge st clini rajiv corre latio n and follo w-up as clini solomon appro priat e Not Available [address] [address] [place], [address], 03/08/2025 08:16:51 02/27/20 25 03/08/2025 THINP REP TIS PAP (REFL ) HPV MRNA E6/E7 cytotechnolo gist: normal KMS, CT( CP) CT Scree pat locat ion: [address] [place] [address] [address] Not Available [address] [address] [place], [address], 03/08/2025 08:16:51 02/27/20 25 03/08/2025 THINP REP TIS PAP (REFL ) HPV MRNA E6/E7 pathologist: normal Alisha monique M.D., Board Certi fied in Anato jesús Patho logy and Cytop athol ogy. Phone : [phone] (elec troni c signa ture) Patho logis t Relea se Date/ Time: 03/06 09:25 AM Not Available [address] [address] [place], [address], 03/08/2025 08:16:51 02/27/20 25 03/08/2025 THINP REP [...] infor amy raphael. Not Available [address] [address] [place], [address], 03/08/2025 08:16:51 02/27/20 25 03/08/2025 HPV MRNA [...] infor sabrina roth e refer to http: //[facility] raphael.patience stdia gnost ics.c om/fa q/FAQ 129v1 (This link if provi ded for infor amy raphael/ educa jhonathan l purpo ses only. ) Not Available [address] [address] [place], [address], 03/08/2025 08:16:53 02/27/20 25 02/26/2025 CT + NG + TV, DNA, urine /swab Chlamydia negati ve Not Available [facility] ([facility]) [address] [place] [address], [phone], 02/25/2025 18:55:26 02/27/20 25 02/26/2025 CT + NG + TV, DNA, urine /swab Gonorrhea negati ve Not Available [facility] ([facility]) [address] [place] [address], [phone], 02/25/2025 18:55:26 02/27/20 25 02/26/2025 CT + NG + TV, DNA, urine /swab Trichomonas negati ve Not Available [facility] ([facility]) [address] [place], [address], 02/25/2025 18:55:26 07/02/20 25 07/02/2025 CBC WBC 11.1 x10 4.0-10 .5 high Not Available [facility] [address] [facility] [address] [address], [place], [address], 07/02/2025 10:24:57 07/02/20 25 07/02/2025 CBC RBC 3.96 x10 3.50-5 .50 Not Available [facility] [address] [facility] 1, [place], [address], 07/02/2025 10:24:57 07/02/20 25 07/02/2025 CBC HGB 12.0 g/dL 12.0-1 6.0 Not Available [facility] [address] [facility], [place], [address], 07/02/2025 10:24:57 07/02/20 25 07/02/2025 CBC HCT 37.1 % 37.0-4 7.0 Not Available [facility] [address] [facility], [place], [address], 07/02/2025 10:24:57 07/02/20 25 07/02/2025 CBC MCV 93.8 fL 80.0-9 9.9 Not Available [facility] [address] [facility] Nuria [facility] 1, [place], [address], 07/02/2025 10:24:57 07/02/20 25 07/02/2025 CBC MCH 30.4 pg 27.0-3 2.0 Not Available [facility] [address] [facility] 1, [place], [address], 07/02/2025 10:24:57 07/02/2007/02/2025 CBC MCHC 32.4 g/dL 32.0-3 6.0 Not Available [facility] [address] [facility] 1, [place], [address], 07/02/2025 10:24:57 07/02/2007/02/2025 CBC RDW 12.9 % 11.5-1 4.5 Not Available [facility] [address] [facility] 1, [place], [address], 07/02/2025 10:24:57 07/02/2007/02/2025 CBC plt 227.7 x10 140.0- 451.0 Not Available [facility] [address] [facility] 1, [place], [address], 07/02/2025 10:24:57 07/02/2007/02/2025 CBC lymphocytes % 15.5 % 20.0-5 0.0 low Not Available [facility] [address] [facility] 1, [place], [address], 07/02/2025 10:24:57 07/02/2007/02/2025 CBC granulcytes % 78.3 % 30.0-7 0.0 high Not Available [facility] [address] [facility] 1, [place], [address], 07/02/2025 10:24:57 07/02/2007/02/2025 CBC monocytes % 4.2 % 2.0-16 .0 Not Available [facility] [address] [facility] 1, [place], [address], 07/02/2025 10:24:57 07/02/2007/02/2025 CBC granulcytes# 8.7 x10 Not Jenny ilable [facility] [address] [facility] [address], [place], [address], 07/02/2025 10:24:57 07/02/20 25 07/02/2025 CBC lymphocytes # 1.7 x10 Not Available [facility] [address] [facility] [address], [place], [address], 07/02/2025 10:24:57 07/02/20 25 07/02/2025 CBC monocytes # 0.5 x10 Not Avai lable [facility] [address] [facility] [address], [place], [address], 07/02/2025 10:24:57 07/02/20 25 07/02/2025 GLUCO SE SCREE N glucose screen 135.0 mg/dL Not Available [facility] [address] [facility] [address], [place], [address], 07/02/2025 10:30:30 07/11/20 25 07/11/2025 GLUCO SE SCREE N glucose screen 133.0 mg/dL Not Available [facility] [address] [facility] [address], [place], [address], 07/11/2025 10:37:03 08/27/20 25 09/02/2025 CULTU RE, GROUP B STREP WITH SUSCE PTIBI LITY culture, group B strep with susceptibili ty SEE NOTE abnormal CULTU RE, GROUP B STREP WITH SUSCE PTIBI LITY Micro Numbe r: [id number] Test Statu s: Final Speci men Sourc [...] lower vagin a and rectu m (thro [facility] the anal sphin cter) . Group B [...] See Thera py Comme nts Not Available [facility] [address] [address], [place], [address], 09/02/2025 14:26:34 09/06/2009/06/2025 CBC WBC 9.9 x10 4.0-10 .5 Not Available [facility] [address] [facility] [address] [address], [place], [address], 09/06/2025 09:32:26 09/06/2009/06/2025 CBC RBC 4.29 x10 3.50-5 .50 Not Available [facility] [address] [place] [address] [facility] 1, [place], [address], 09/06/2025 09:32:26 09/06/20 25 09/06/2025 CBC HGB 12.6 g/dL 12.0-1 6.0 Not Available [facility] [address] [facility], [place], [address], 09/06/2025 09:32:26 09/06/20 25 09/06/2025 CBC HCT 39.4 % 37.0-4 7.0 Not Available [facility] [address] [facility] [address] [facility] 1, [place], [address], 09/06/2025 09:32:26 09/06/20 25 09/06/2025 CBC MCV 91.9 fL 80.0-9 9.9 Not Available [facility] [address] Qu[address]ones [facility] 1, [place], [address], 09/06/2025 09:32:26 09/06/20 25 09/06/2025 CBC MCH 29.3 pg 27.0-3 2.0 Not Available [facility] [address] [facility] 1, [place], [address], 09/06/2025 09:32:26 09/06/20 25 09/06/2025 CBC MCHC 31.9 g/dL 32.0-3 6.0 low Not Available [facility] [address] [facility] 1, [place], [address], 09/06/2025 09:32:26 09/06/20 25 09/06/2025 CBC RDW 13.2 % 11.5-1 4.5 Not Available [facility] [address] [place] [address] [facility] 1, [place], [address], 09/06/2025 09:32:26 09/06/20 25 09/06/2025 CBC plt 216.3 x10 140.0- 451.0 Not Available [facility] [address] [place] [address] [facility] 1, [place], [address], 09/06/2025 09:32:26 09/06/20 25 09/06/2025 CBC lymphocytes % 21.4 % 20.0-5 0.0 Not Available [facility] [address] [facility] 1, [place], [address], 09/06/2025 09:32:26 09/06/20 25 09/06/2025 CBC granulcytes % 70.6 % 30.0-7 0.0 high Not Available [facility] [address] [place] [address] [facility] 1, [place], [address], 09/06/2025 09:32:26 09/06/20 25 09/06/2025 CBC monocytes % 5.8 % 2.0-16 .0 Not Available [facility] [address] [facility], [place], [address], 09/06/2025 09:32:26 09/06/2009/06/2025 CBC granulcytes# 7.0 x10 Not Jenny ilable [facility] [address] [place] [address] [address], [place], [address], 09/06/2025 09:32:26 09/06/2009/06/2025 CBC lymphocytes # 2.1 x10 Not Available [facility] [address] [place] [address] [address], [place], [address], 09/06/2025 09:32:26 09/06/20 25 09/06/2025 CBC monocytes # 0.6 x10 Not Avai lable [facility] [address] [address], [place], [address], 09/06/2025 09:32:26 09/06/2009/06/2025 CMP (FEMA LE) glucose 84.0 mg/dL 60.0-9 9.0 Not Available [facility] [address] [address], [place], [address], 09/06/2025 09:46:52 09/06/2009/06/2025 CMP (FEMA LE) BUN (blood urea nitrogen) 5.0 mg/dL 10.0-2 6.0 low Not Available [facility] [address] [facility] [address] [address], [place], [address], 09/06/2025 09:46:52 09/06/2009/06/2025 CMP (FEMA LE) creatinine (serum) 0.5 mg/dL 0.4-1. 5 Not Available [facility] [address] [facility] [address] [address], [place], [address], 09/06/2025 09:46:52 09/06/20 25 09/06/2025 CMP (FEMA LE) BUN/creatini ne ratio 10.00 ratio Not Available [facility] [address] [facility] [place], [address], 09/06/2025 09:46:52 09/06/20 25 09/06/2025 CMP (FEMA LE) eGFR calculated 154.0 Not Available [facility] [address] [facility] [address], [place], [address], 09/06/2025 09:46:52 09/06/2009/06/2025 CMP (FEMA LE) total protein 7.0 g/dL 6.0-8. 5 Not Available [facility] [address] [facility] [address], [place], [address], 09/06/2025 09:46:52 09/06/20 25 09/06/2025 CMP (FEMA LE) total bilirubin 0.6 mg/dL 0.2-1. 3 Not Available [facility] [address] [facility] [address], [place], [address], 09/06/2025 09:46:52 09/06/20 25 09/06/2025 CMP (FEMA LE) albumin 4.1 g/dL 3.5-5. 5 Not Available [facility] [address] [facility] [address], [place], [address], 09/06/2025 09:46:52 09/06/20 25 09/06/2025 CMP (FEMA LE) globulin 2.9 calc Not Available [facility] [address] [facility] [address], [place], [address], 09/06/2025 09:46:52 09/06/20 25 09/06/2025 CMP (FEMA LE) AST (SGOT) 33.0 U/L 0.0-46 .0 Not Available [facility] [address] [facility] [address], [place], [address], 09/06/2025 09:46:52 09/06/20 25 09/06/2025 CMP (FEMA LE) altv (SGPT) 22.0 U/L 13.0-6 9.0 normal Not Available [facility] [address] [facility], [place], [address], 09/06/2025 09:46:52 09/06/20 25 09/06/2025 CMP (FEMA LE) A/G ratio 1.4 ratio Not Available [facility] [address] [facility] [address], [place], [address], 09/06/2025 09:46:52 09/06/20 25 09/06/2025 CMP (FEMA LE) ALP phos 160.0 U/L 30.0-1 40.0 abnormal Not Available [facility] [address] [place] [facility], [place], [address], 09/06/2025 09:46:52 09/06/20 25 09/06/2025 CMP (FEMA LE) calcium 9.0 mg/dL 8.4-10 .5 Not Available [facility] [address] [facility] [address], [place], [address], 09/06/2025 09:46:52 09/06/20 25 09/06/2025 CMP (FEMA LE) sodium 137.0 mmol/ L 136.0- 145.0 Not Available [facility] [address] [place] [facility], [place], [address], 09/06/2025 09:46:52 09/06/20 25 09/06/2025 CMP (FEMA LE) potassium 3.4 mmol/ L 3.5-5. 1 low Not Available [facility] [address] [facility], [place], [address], 09/06/2025 09:46:52 09/06/2009/06/2025 CMP (FEMA LE) chloride 105.0 mmol/ L 98.0-1 10.0 normal Not Available [facility] [address] [facility], [place], [address], 09/06/2025 09:46:52 09/06/2009/06/2025 CMP (FEMA LE) C02 24.0 mmol/ L 22.0-3 1.0 Not Available [facility] [address] [place] [facility], [place], [address], 09/06/2025 09:46:52 09/06/2009/06/2025 CMP (FEMA LE) anion gap 8.0 calc Not Available [facility] [address] [place] [facility], [place], [address], 09/06/2025 09:46:52 09/06/2009/06/2025 CMP (FEMA LE) osmolality 279.9 calc Not Available [facility] [address] [place] [facility], [place], [address], 09/06/2025 09:46:52 09/06/2009/06/2025 LIPID PROFI LE (FEMA LE) cholesterol 195.0 mg/dL 0.0-20 0.0 Not Available [facility] [address] [place] [address] [facility], [place], [address], 09/06/2025 09:46:55 09/06/2009/06/2025 LIPID PROFI LE (FEMA LE) trig 114.0 mg/dL 0.0-15 0.0 Not Available [facility] [address] [place] [facility], [place], [address], 09/06/2025 09:46:55 09/06/20 25 09/06/2025 LIPID PROFI LE (FEMA LE) HDL - direct 74.0 mg/dL >40.0 Not Available [facility] [address] [facility], [place], [address], 09/06/2025 09:46:55 09/06/20 25 09/06/2025 LIPID PROFI LE (FEMA LE) VLDL - direct 22.8 mg/dL Not Available [facility] [address] [facility], [place], [address], 09/06/2025 09:46:55 09/06/20 25 09/06/2025 LIPID PROFI LE (FEMA LE) LDL - direct 98.2 mg/dL 0.0-13 0.0 Not Available [place] [id number] [facility], [place], [address], 09/06/2025 09:46:55 09/06/20 25 09/06/2025 TSH TSH 1.69 uIU/m L 0.49-3 .82 Not Available [place] [address] [place] [address] [facility], [place], [address], 09/06/2025 10:02:31 09/06/20 25 09/06/2025 HBA1C hemaglobin A1C 5.4 4.2-6. 5 Not Available [place] [id number] [facility] [address] [facility], [place], [address], 09/06/2025 12:51:07 02/19/20 25 02/12/2025 US, chadwick martinez, 1st trime ster No observ ation record ed. [email or web address] Not Available 02/19 09:09:34 04/25/20 25 04/18/2025 US, chadwick martinez, follo w-up No observ ation record ed. [email or web address] [facility] [address] [facility] [place], [address], 04/29/2025 09:24:34 05/11/20 25 05/07/2025 US, obste tric, 2nd trime ster No observ ation record ed. [address] [place], [address], 05/13/2025 17:57:21 07/05/20 25 07/02/2025 imagi ng/di agnos tic resul t No observ ation record ed. [facility] [address] [place], [address], 07/09/2025 10:35:54 Result Notes None recorded. Problems Name Problem SNOMED Code Status Onset Date Resolution Date Notes Provider Name and Address Organization Details Recorded Time Rheumatoid arthritis 47376844 Active 2022 KERWIN roper [facility] 5 14:16:25 Pain of knee region 4864431534 Completed 202301/24/2025 KERWIN roper [facility] 5 14:16:23 Family history of diabetes mellitus 382829460 Active 2023 KERWIN roper [facility] 5 14:16:18 Normal 37310707 Active 2024 TREBA NEUSCHWAN KAVITHA null, [facility] 5 10:22:35 Normal 94190267 Active 2024 TREBA NEUSCHWAN KAVITHA null, [facility] 5 10:22:35 Placenta previa partialis 64624170 Active 2024 Alvaro Angelo MD [address] [place], [address], [facility] 02:46:26 Low-lying placenta 841831486 Active 2024 Alvaro Angelo MD [address] [place] [address], [phone], [facility], LAlisaCRemigio 11:36:47 Problem Notes None recorded. Procedures Surgical History Date Name Laterality Status Provider Name and Address Organization Details Recorded Time 02/27/20 25 Date of Last Pap Smear completed [facility] 09/02/2025 18:39:21 02/27/20 25 liquid based cervical cytology screening completed [facility], LRemigioLRemigioC. 09/02/2025 18:39:54 01/31/20 24 colposcopy completed [facility], LRemigioLRemigioCRemigio 01/24/2025 14:17:49 01/31/20 24 hysteroscopy completed [facility]io 01/24/2025 14:18:46 arthroscopy of left knee joint completed [facility], LRemigioLRemigioCRemigio 01/24/2025 14:17:01 cholecystectomy completed [facility] 01/24/2025 14:17:33 Imaging Results None recorded. Procedure Notes None recorded. Medical Equipment None Reported. Allergies Allergen ID Allergen Name Allergen Category Reaction Reaction Severity Criticality Documentation Date Start Date Code Code System Note Provider Name and Address Organization Details Recorded Time 87428 Bactrim medicatio n hives moderate Not available 05/21/2023 93155 9 RxNorm ROXI Vang [facility] VikiLRemigioCRemigio 5 15:30:03 75242 Product containin g penicilli n (product) medicatio n hives moderate Not available 05/21/2023 82504 8001 SNOMED TREBA MANFRED Vang [facility] LRemigioL.C. 5 15:30:03 90825 Augmentin medicatio n hives moderate Not available 01/24/2025 60301 2 RxNorm [facility] 5 14:19:18 04193 Celebrex medicatio n other moderate Not available 01/24/2025 19036 7 RxNorm TREBA NEUSCHWAHailey KAVITHA [facility] 5 15:30:03 36154 Substance with sulfonami de structure and antibacte rial mechanism of action (substanc e) medicatio n hives moderate Not available 04/18/2025 87054 8003 SNOMED TREBA TATYSCHWAHailey PLUMMER [facility] 5 15:30:03 58425 amoxicill in / clavulana te medicatio n hives Not available high 09/06/20252022 05857 RxNorm Yessy ates PCN and amoxi cilli n fine Not Available anna - External Data Service - prod 5 07:58:34 85397 celecoxib medicatio n Not available Not available high 09/06/20252022 15808 7 RxNorm Not Available anna - External Data Service - prod 5 07:58:34 25599 amoxicill in medicatio n Not available Not available low 09/27/20252023 723 RxNorm Not Available anna - External Data Service - prod 5 13:40:54 43352 clavulani c acid Not available Not available Not available low 09/27/20252023 08639 RxNorm Not Available anna - External Data Service - prod 5 13:40:54 21785 sulfameth oxazole medicatio n Not available Not available Not available 09/27/20252023 02956 RxNorm Not Available anna - External Data Service - prod 5 13:40:54 87984 trimethop rim medicatio n Not available Not available Not available 09/27/20252023 08548 RxNorm Not Available [place] - External Data Service - prod 13:40:54 [...] Updated DateTime 5 170.18 cm 38.1 kg/m2 351493. 95 g 95 /min 98 % 120/70 mm[Hg] Leigh Pickett [facility] 5 08:20:14 Social History Question Answer Notes LastModified by Organizat ion Details LastModified Time Tobacco Smoking Status Former Smoker [facility] [place] 01/24/2023 10:09:31 Are You Blind Or Do You Have Difficulty Seeing? No Information not available 01/24/2025 Are You Deaf Or Do You Have Serious Difficulty Hearing? No [email or web address] Information not available 01/24/2023 When Did You Quit Smoking? 1-5yearssinc elastcigaret te [email or web address] Information not available 01/24/2023 Do You Work In Healthcare? No Information not available 01/24/2025 What Was The Date Of Your Most Recent Tobacco Screening? 03/26/2025 [email or web address] Information not available 03/26/2025 What Is Your Relationship Status? Information not available 01/24/2025 Have You Recently Traveled Abroad? No Information not available 01/24/2023 Do You Have Difficulty Walking Or Climbing Stairs? No [email or web address] Information not available 01/24/2023 Sex: Unknown Functional [...] independently without assistance or assistive devices? YESWOREST [email or web address] Information not available 01/24/2023 Do you have difficulty doing errands alone? No Information not available 01/24/2023 Are you able to care for yourself independently? 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 No [email or web address] Information not available 01/24/2023 Do you or have you ever used e-cigarettes or vape? Former user of electronic cigarettes Information not available 01/24/2025 Mental Status Question Answer Note LastModified by Organization D etails LastModified Time Do you have difficulty concentrating, remembering or making decisions? No [email or web address] Information no t available 01/24/2023 Family History Relationship Description Onset Age of this Age Resolved Age Notes LastModified by Organization Details LastModified Time Father Diabetes mellitus [email or web address] Not available 2023 09:43:45 Paternal Grandmother Malignant [...] Recorded Time IPV 09/28/2000 completed Susan roper, [facility] 10/09/2024 09:35:10 MMR 04/11/1996 completed Susan Wilson null, [facility] 10/09/2024 09:35:10 MMR 09/28/2000 completed Susan Wilson null, [facility] 10/09/2024 09:35:10 Tdap 11/17/2010 completed Susan Wilson null, [facility] 10/09/2024 09:35:10 Tdap 02/20/2015 completed Susan Wilson null, [facility] 10/09/2024 09:35:10 Hep B, unspecified formulation 1995 completed Susan Wilson null, [facility] 10/09/2024 09:35:10 Hep B, unspecified formulation 02/28/1996 completed Susan Wilson null, [facility] 10/09/2024 09:35:10 Hep B, unspecified formulation 1995 completed Susan Wilson null, [facility] 10/09/2024 09:35:10 OPV, trivalent 1995 completed Susan Wilson null, [facility] 10/09/2024 09:35:10 OPV, trivalent 02/28/1996 completed Susan Wilson null, [facility] 10/09/2024 09:35:10 OPV, trivalent 1995 completed Susan Wilson null, [facility] 10/09/2024 09:35:10 DTP-Hib 11/29/1996 completed Susan Wilson null, [facility] 10/09/2024 09:35:10 DTP-Hib 1995 completed Susan Wilson null, [facility] 10/09/2024 09:35:10 DTP-Hib 02/28/1996 completed Susan Wilson null, [facility] 10/09/2024 09:35:10 DTP-Hib 1995 completed Susan Wilson null, [facility] 10/09/2024 09:35:10 DTaP 09/28/2000 completed Susan Wilson null, [facility] 10/09/2024 09:35:10 Past Encounters Encounter ID Performer Location Encounter Start Date Encounter Closed Date Diagnosis/Indication Diagnosis SNOMED-CT Code Diagnosis ICD10 Code Diagnosis IMO Codes Diagnosis Note [id number] Alvaro Angelo MD [facility]) [address] [place] [phone] 08/13/2025 10:44:33 08/13/2025 11:38:15 Normal 97180640 Z34.83 Gestation period, 34 weeks 45416271 Z3A.34 [id number] Alvaro Angelo MD [facility] ([facility]) [address] [place] [address] 5 08/27/2025 10:35:57 08/27/2025 11:34:41 Normal 58020455 Z34.83 Gestation period, 36 weeks 61971036 Z3A.36 5118521 [id number] Alvaro Angelo MD [facility] ([facility]) [address] [place] [phone] 5 09/03/2025 10:32:59 09/03/2025 11:48:15 Multigravida 112396034 Z34.83 16636670 Gestation period, 37 weeks 01280072 Z3A.37 1705815 [id number] Giovani Yu MD [facility] ([facility]) [address] [place] [address] 5 09/06/2025 07:58:00 09/11/2025 03:58:55 Adult health examination 864076328 Z00.00 [id number] ILSSETH SETHI [facility] ([facility]) [address] [place] [address] 09/06/2025 07:58:35 09/11/2025 03:58:55 Physical examination 1714099 Z00.00 [id number] Health Concerns Section Related Observation LastModified by Organization Detai ls LastModified Time None Recorded Concern Status LastModified by Organization Details LastModified Time None Recorded Payers None recorded. OBGyn Episode Ob Episode Information Episode Created Date Number of Fetuses Patient Bloodtype Patient rh Status Prepregnancy Weight lbs Domestic Partner Domestic Partner Phone Father Name Belt Changer Status 01/25/20 1 O Positive Damián OPEN [...] Resolution Snomed Code Not e Normal 02/25/2025 58203903 Harshil Calculation Initial Harshil Date Initial Exam [...] Weight in lbs Pre/Post Dialysis Refused Weight 227.815924126766 BP Diastolic BP Location Tested BP Systolic [...] Weight in lbs Pre/Post Dialysis Refused Weight 221.517606005363 BP Diastolic BP Location Tested BP Systolic [...] Weight in lbs Pre/Post Dialysis Refused Weight 221.636021255073 BP Diastolic BP Location Tested BP Systolic [...] Weight in lbs Pre/Post Dialysis Refused Weight 225.204206667421 BP Diastolic BP Location Tested BP Systolic [...] Weight in lbs Pre/Post Dialysis Refused Weight 230.689121834658 BP Diastolic BP Location Tested BP Systolic BP Type 62 L arm 106 Fetus Heart Rate Present A 148 Present Fetus Movement A Yes Comments heartburn Flowsheet Date 06/18/2025 Sierra Score Blood Edema Fundus Height Fundus Units Glucose Ketones Leukocytes Nitrite Labor Signs Protein Cervic Dilation Cervic Effacement Cervic Station Type Weight in lbs Pre/Post Dialysis Refused Weight 229.7639537062 BP Diastolic BP Location Tested BP Systolic [...] Weight in lbs Pre/Post Dialysis Refused Weight 234.423369553779 BP Diastolic BP Location Tested BP Systolic [...] Weight in lbs Pre/Post Dialysis Refused Weight 232.536637250086 BP Diastolic BP Location Tested BP Systolic [...] Weight in lbs Pre/Post Dialysis Refused Weight 236.681870718869 BP Diastolic BP Location Tested BP Systolic BP Type 76 120 Fetus Heart Rate Present A 144 Present Fetus Movement A Yes Comments mild swelling, heartburn int ermittent Flowsheet Date 08/13/2025 Sierra Score Blood Edema Fundus Height Fundus Units Glucose Ketones Leukocytes Nitrite Labor Signs Protein Cervic Dilation Cervic Effacement Cervic Station 34 cm none trace Linden Garnett neg Type Weight in lbs Pre/Post Dialysis Refused Weight 239.275888396951 BP Diastolic BP Location Tested BP Systolic [...] Weight in lbs Pre/Post Dialysis Refused Weight 241.956250370663 BP Diastolic BP Location Tested BP Systolic [...] Cervic Effacement Cervic Station none none Negative Linden Garnett neg 2cm 70% -3 Type Weight in lbs Pre/Post Dialysis Refused Weight 241.863139304276 BP Diastolic BP Location Tested BP Systolic [...] Weight in lbs Pre/Post Dialysis Refused Weight 243.498300876519 BP Diastolic BP Location Tested BP Systolic BP Type 70 120 Fetus Heart Rate Present Fetus Movement Comments Flowsheet Date 09/10/2025 Sierra Score Blood Edema Fundus Height Fundus Units Glucose Ketones Leukocytes Nitrite Labor Signs Protein Cervic Dilation Cervic Effacement Cervic Station none trace Negative Linden Garnett neg 2cm 70% -3 Type Weight in lbs Pre/Post Dialysis Refused Weight 243.215081064657 BP Diastolic BP Location Tested BP Systolic [...] Weight in lbs Pre/Post Dialysis Refused Weight 242.651644535028 BP Diastolic BP Location Tested BP Systolic [...] Weight in lbs Pre/Post Dialysis Refused Weight 244.153901608671 BP Diastolic BP Location Tested BP Systolic [...] Weight in lbs Pre/Post Dialysis Refused Weight 248.665771819990 BP Diastolic BP Location Tested BP Systolic [...] Estim ated Date of Delivery false Thalassemia (Belarusian, Czech, Mediterranean, Or Background): MCV < 80 false Neural Tube Defect (Meningomyelocele, Spina Bifi da, Or Anencephaly) false Congenital Heart Defect false Down Syndrome false Maco-Sachs (eg, Sikhism, Cajun, [place]) f alse Dustin Disease false Sickle Cell [...]
--- NOTE | 2025-10-01 00:18 | USR_ITS ---
PROCEDURE INFORMATION: Exam: US Duplex Left Lower Extremity Veins, Limited Exam date and time: 10/01/2025 12:49 AM Age: 30 years old Clinical indication: Edema, localized; Lower extremity, left; Additional info: Swelling; Post TECHNIQUE: Imaging protocol: Real-time duplex ultrasound of the left extremity with 2-D santoro scale, color Doppler flow and spectral waveform analysis including responses to compression and other maneuvers (when performed) with image documentation. Limited exam focused on the left lower extremity veins. COMPARISON: [place] [id number] 07/02/2025 8:23 AM FINDINGS: Left deep veins: Unremarkable. The common femoral, femoral, proximal profunda femoral and popliteal veins are patent without thrombus. Normal Doppler waveforms. Normal compressibility and/or augmentation response. Superficial veins: Greater saphenous vein at the saphenofemoral junction is patent without thrombus. Soft tissues: Unremarkable. US/CV venous duplex [facility] [id number] IMPRESSION: No evidence of deep vein thrombosis.
[2025-10-01 00:42] VITALS: BP 121/80; PULSE 75; O2SAT 98
--- NOTE | 2025-10-01 00:45 | W.ED.FEMALGU ---
HPI - Female Genitourinary General: Chief complaint: Vaginal Bleeding Stated complaint: Post \Bleeding\SOB Time Seen by Provider: 10/01/25 00:44 History of Present Illness: 30-year-old female who delivered a baby approximately 4 days ago who presents emergency room with continued vaginal bleeding. She says she is having to use a pad every 2-3 hours. Also concern for some swelling in her leg. Says fairly significant swelling in her left leg. I do not see a lot of swelling. No chest pain or shortness of breath. She says with all this been going on she was just concerned and wanted to get checked out. She says she might of overdone it recently. Related Data Previous Rx's ?Medication ?Instructions ?Recorded ibuprofen 800 mg tablet 800 mg PO TID #45 tabs 09/27/25 vits no.130-ferrous fum 1 tab PO DAILY #90 tabs 09/27/25 27 mg iron-folic acid 800 mcg tablet ( Vitamin) Allergies Allergy/AdvReac Type Severity Reaction Status Date / Time amoxicillin (From Augmentin) Allergy Mild ALGY-Rash Verified 03/22/24 10:42 clavulanic acid (From Allergy Mild ALGY-Rash Verified 03/22/24 10:42 Augmentin) celecoxib (From Celebrex) Allergy bleeding Verified 03/22/24 10:42 Penicillins Allergy Hives Verified 03/22/24 10:42 sulfamethoxazole (From Allergy rash Verified 03/22/24 10:42 Bactrim) trimethoprim (From Bactrim) Allergy rash Verified 03/22/24 10:42 Review of Systems Narrative: Constitutional symptoms: Negative except as documented in HPI. Skin symptoms: Negative except as documented in HPI. Eye symptoms: Negative except as documented in HPI. ENMT symptoms: Negative except as documented in HPI. Respiratory symptoms: Negative except as documented in HPI. Cardiovascular symptoms: Negative except as documented in HPI. Gastrointestinal symptoms: Negative except as documented in HPI. Genitourinary symptoms: Negative except as documented in HPI. Musculoskeletal symptoms: Negative except as documented in HPI. Neurologic symptoms: Negative except as documented in HPI. Psychiatric symptoms: Negative except as documented in HPI. Endocrine symptoms: Negative except as documented in HPI. 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 Performed by [facility] at [facility]. S/P laparoscopic cholecystectomy (~2014) Performed at [facility] in [place], [place] S/P left knee arthroscopy (~10/2013) Performed at [facility] in [place], [place] Family History Father Diabetes Grandmother Ovarian cancer paternal Other Lupus Denies family history of Rheumatoid arthritis CAD (coronary artery disease) Hyperlipidemia Chronic kidney disease (CKD) Hypertension Stroke Social History Smoking and tobacco/nicotine status: never used tobacco/nicotine Physical Exam Narrative: EXAM NARRATIVE: General: Alert, no acute distress. Skin: Warm, dry. Head: Normocephalic, atraumatic. Neck: Supple, trachea midline. Eye: Extraocular movements are intact. Ears, nose, mouth and throat: mucosa moist. Cardiovascular: Regular, Normal peripheral perfusion. Respiratory: Lungs are clear to auscultation, respirations are non-labored, breath sounds are equal, Symmetrical chest wall expansion. Gastrointestinal: Soft, Nontender, Non distended Musculoskeletal: Normal ROM, no deformity. Neurological: Alert and oriented, No focal neurological deficit observed. Psychiatric: Cooperative, appropriate mood & affect. Course Vital Signs: Vital signs: Vital Signs Temperature 97.3 F L 09/30/25 23:40 Pulse Rate 67 10/01/25 02:30 Respiratory Rate 14 09/30/25 23:40 Blood Pressure 128/90 10/01/25 02:30 Pulse Oximetry 99 10/01/25 02:30 Oxygen Delivery Me thod Room Air 09/30/25 23:40 MDM - Female Medical Decision Making Medical decision making Patient's reason for coming to the emergency room: Vaginal bleeding, left lower extremity swelling. Social determinants: Patient is employed. Also is I reviewed the patient's medical record. Discharge summary was reviewed from September 27. Dr. Angelo. I reviewed the patient's current home meds No chronic medications. Alternate historians: None Differential diagnosis: including but not limited to and based on the above HPI, review of systems and physical exam: We will rule out DVT with an ultrasound. Basic lab work to make sure she has not become anemic and is not having any renal failure. Orders placed to evaluate differential diagnosis based on the above differential, HPI and physical exam Lab Review: Laboratory results were reviewed and interpreted by myself the emergency room physician. No leukocytosis. No anemia. No renal failure. Ultrasound lower extremity: No DVT. This was reviewed and interpreted by myself the emergency room physician. I also reviewed the radiology report. Assessment of risk: Level of risk: Low risk Hospitalization considerations: No indication for admission. Reexamination: Patient remained stable. No increased work of breathing. No altered mental status. No focal motor deficits. Assessment and plan: Vaginal bleeding after delivery Lower extremity swelling - Discharged home - Discussed plan with patient. Answered any questions. - Evaluation and treatment of this problem were appropriate in the emergency setting. Lab Data 09/30/25 01:33 09/30/25 01:33 Radiology Impressions Venous Duplex 10/01/25 00:18 IMPRESSION: No evidence of deep vein thrombosis. Laboratory Results WBC 7.10 10^3/uL (3.29-11.43) 09/30/25 01:33 RBC 3.90 10^6/uL (3.85-5.65) 09/30/25 01:33 Hgb 11.30 g/dL (11.27-16.99) 09/30/25 01:33 Hct 35.0 % (36-47) L 09/30/25 01:33 MCV 89.7 fl (85-98) 09/30/25 01:33 MCH 29.0 pg (27-33) 09/30/25 01:33 MCHC 32.3 g/dL (30-55) 09/30/25 01:33 RDW 13.0 % (12.1-15.1) 09/30/25 01:33 Plt Count 239 10^3/cmm (157-399) 09/30/25 01:33 MPV 11.4 fL (7.4-10.4) H 09/30/25 01:33 Neut % (Auto) 69.7 % 09/30/25 01:33 Lymph % (Auto) 18.7 % 09/30/25 01:33 Pratt % (Auto) 9.3 % 09/30/25 01:33 Eos % (Auto) 1.5 % 09/30/25 01:33 Baso % (Auto) 0.4 % 09/30/25 01:33 Neut # (Auto) 4.94 10^3/uL (1.8-7.7) 09/30/25 01:33 Lymph # (Auto) 1.3 10^3/uL (0.8-4.8) 09/30/25 01:33 Pratt # (Auto) 0.7 10^3/uL (0.2-0.9) 09/30/25 01:33 Eos # (Auto) 0.1 10^3/uL (0.0-0.8) 09/30/25 01:33 Baso # (Auto) 0.0 10^3/uL (0.0-0.1) 09/30/25 01:33 Nucleated RBC % (auto) 0 % 09/30/25 01:33 Nucleated RBCs # 0.0 /100WBC 09/30/25 01:33 Sodium 141 mmol/L (136-145) 09/30/25 01:33 Potassium 3.7 mmol/L (3.5-5.1) 09/30/25 01:33 Chloride 108 mmol/L (98-107) H 09/30/25 01:33 Carbon Dioxide 23 mmol/L (22-29) 09/30/25 01:33 Anion Gap 13.7 (5-19) 09/30/25 01:33 BUN 8 mg/dL (6-20) 09/30/25 01:33 Creatinine 0.4 mg/dL (0.5-0.9) L 09/30/25 01:33 GFR Calculation 187.4 mL/min (90-130) H 09/30/25 01:33 Glucose 99 mg/dL (65-115) 09/30/25 01:33 Calculated Osmolality 290 mOsm/kg (285-295) 09/30/25 01:33 Calcium 8.5 mg/dL (8.5-10.5) 09/30/25 01:33 Total Bilirubin 0.2 mg/dL (0.15-1.2) 09/30/25 01:33 AST 22 U/L (0-32) 09/30/25 01:33 ALT 19 U/L (0-33) 09/30/25 01:33 Alkaline Phosphatase 128 U/L (35-105) H 09/30/25 01:33 Total Protein 6.6 g/dL (6.6-8.7) 09/30/25 01:33 Albumin 3.5 g/dL (3.5-5.2) 09/30/25 01:33 Globulin 3.1 g/dL (1.3-4.6) 09/30/25 01:33 All radiology interpretation(s) finalized by discharge Discharge Plan Discharge Patient Disposition: Home Clinical Impression: Vaginal bleeding Condition: Stable Prescriptions: No Action ibuprofen 800 mg Tablet 800 mg PO TID Qty: 45 0RF Vitamin 27 mg iron- 800 mcg Tablet 1 tab PO DAILY Qty: 90 0RF Discharge Orders: Discharge ED (Routine); Ordered 10/01/25 Ordered By: Laura Bright Referrals: Alvaro Angelo MD [Primary Care Provider, Family Practice] Discharge Diet: Usual diet Discharge Activity: Increase activity as tolerated Patient Instructions: Opioid Safety, Pain Management, Patient Portal & [place] Instructions Activity Restrictions/Additional Instructions: Thank you for choosing [facility] for your healthcare needs today. You have been screened and evaluated and felt safe for discharge. Health conditions do change or evolve sometimes and as such it is important that you follow up with your Primary Doctor to be re checked, 3-5 days is a general good time frame for follow up. You are always welcome to return to the ED for re assessment if your symptoms are worsening or you have new concerns Print Language: Irish Coding Level of Care Code ED Rectification Printer for Sheree Scott
[2025-10-01 01:00] VITALS: PULSE 77; O2SAT 96
[2025-10-01 01:30] VITALS: BP 116/77; PULSE 66; O2SAT 97
[2025-10-01 01:43] LABS: Hematocrit 35.0 % (36-47); Hemoglobin 11.30 g/dL (11.27-16.99); Mean Corpuscular HGB Conc 32.3 g/dL (30-55); Mean Corpuscular Hemoglobin 29.0 pg (27-33); Mean Corpuscular Volume 89.7 fl (85-98); Nucleated Red Blood Cells % 0 %; Platelet Count 239 10^3/cmm (157-399); Red Blood Count 3.90 10^6/uL (3.85-5.65); White Blood Count 7.10 10^3/uL (3.29-11.43)
[2025-10-01 02:00] VITALS: BP 111/73; PULSE 62; O2SAT 96
[2025-10-01 02:29] LABS: Alanine Aminotransferase 19 U/L (0-33); Albumin Level 3.5 g/dL (3.5-5.2); Alkaline Phosphatase 128 U/L (35-105); Anion Gap 13.7 (5-19); Aspartate Amino Transferase 22 U/L (0-32); Blood Urea Nitrogen 8 mg/dL (6-20); Calcium 8.5 mg/dL (8.5-10.5); Carbon Dioxide 23 mmol/L (22-29); Chloride 108 mmol/L (98-107); Globulin 3.1 g/dL (1.3-4.6); Glucose 99 mg/dL (65-115); Osmolality Calculated 290 mOsm/kg (285-295); Potassium 3.7 mmol/L (3.5-5.1); Sodium 141 mmol/L (136-145); Total Protein 6.6 g/dL (6.6-8.7)
[2025-10-01 02:30] VITALS: BP 128/90; PULSE 67; O2SAT 99
[2025-10-01 02:43] VITALS: BP 128/90; PULSE 68; O2SAT 99
== END 2025-10-01 02:47 | disposition home or self-care (01) ==
PROVIDERS: Physician Assistant; Emergency Provider Emergency Medicine; PCP Family Medicine
DX: O72.1 Other immediate postpartum hemorrhage (principal)
CPT/HCPCS: 36415; 80053; 85025; 93971; 99284